=== PATIENT | female | born 1955 | race Caucasian/White ===

== ENCOUNTER 2017-09-04 21:18 | Inpatient (IN) | payer OTHER, SELFPAY ==
[2017-09-04 21:20] VITALS: BP 197/90; PULSE 128; RESP 26; TEMP 36.4; O2SAT 97; BMI 33.3
--- NOTE | 2017-09-04 21:22 | CT_ITS ---
STUDY: CT BRAIN WITHOUT CONTRAST REASON FOR EXAM: Female, 62 years old. Fall. RADIATION DOSAGE (If Supplied By Facility): CTDIvol = ( 44.99 ) mGy, DLP = ( 779.24 ) mGycm TECHNIQUE: Transaxial CT imaging of the brain was performed without administration of intravenous contrast material. Individualized dose optimization techniques were used for this CT. COMPARISON: None. FINDINGS: Normal soft tissue structures. Normal calvarium. Normal size ventricles and extra-axial spaces for the patient's age. Normal white matter tracts of the cerebral hemispheres. Normal basal ganglia and thalami. Normal brainstem. Normal cerebellum. There is no intracranial hemorrhage. There are no findings of an acute ischemic infarction. Fluid in the left maxillary sinus.. CT/Brain/Head without Contrast IMPRESSION: Normal unenhanced CT scan of the brain. Electronically Signed: Grzegorz Blanchard MD at 21:44 EST , Service support ,
--- NOTE | 2017-09-04 21:22 | EKG12_ITS ---
Test Reason : Blood Pressure : / mmHG Vent. Rate : 117 BPM Atrial Rate : 117 BPM P-R Int : 138 ms QRS Dur : 074 ms QT Int : 312 ms P-R-T Axes : 062 055 045 degrees QTc Int : 435 ms Sinus tachycardia Biatrial enlargement Nonspecific ST and T wave abnormality Abnormal ECG Confirmed by LYNN CASEY ([id number]), online content editor RYAN SCHMID ([id number]) on 09/09/2017 10:04:39 AM Referred By: Leeanna Johnson Confirmed By:LYNN CASEY
[2017-09-04 21:31] LABS: Bedside Glucose 124 mg/dL (70-110)
--- NOTE | 2017-09-04 21:39 | ED.RN ---
NO OLD EKG
[2017-09-04 21:47] VITALS: BP 182/93; PULSE 115; RESP 17; O2SAT 92
[2017-09-04 21:48] LABS: Absolute Lymphocyte Count 1.46 X10^3/ul (0.83-4.51); Absolute Neutrophil Count 4.8 X10^3/uL (2.0-7.7); Basophil# 0.01 X10^3/uL; Basophil% 0.1 % (0-1); Eosinophil# 0.04 X10^3/uL; Eosinophils% 0.6 % (0-5); Hematocrit 40.3 % (37-47); Lymphocyte # 1.46 X10^3/ul (4.0); Mean Corp Hgb Conc 32.3 g/gl (32-36); Mean Corpuscular Hgb 28.9 pg (27.0-32.0); Mean Corpuscular Volume 89.6 fL (81-99); Mean Platelet Vol. 10.7 fl (6.2-12.0); Monocyte# 0.58 X10^3/uL; Monocyte% 8.3 % (0-10); Neutrophil # 4.83 X10^3/uL (2.7-7.7); Neutrophil % 69.6 % (47-70); Platelet Count 343 K/mm3 (150-450); RBC Distribution Width CV 14.4 % (11.6-14.6); RBC Distribution Width SD 46.6 fl (35.1-43.9)
[2017-09-04 21:50] LABS: POSITIVE COUNT NO; POSITIVE DIFFERENTIAL NO; POSITIVE MORPHOLOGY NO
[2017-09-04 21:52] LABS: International Normalized Ratio 1.1; Prothrombin Time (Protime)PT. 14.2 SECONDS (11.7-14.9)
[2017-09-04 21:53] LABS: Partial Thromboplast Time 31.4 Seconds (24.1-36.2)
[2017-09-04 22:01] LABS: Anion Gap 9 (5-15); BUN 24 mg/dL (7-18); BUN/Creat Ratio 30.2 RATIO (10-20); Calcium,Total 9.1 mg/dL (8.5-10.1); Chloride 103 mmol/L (98-107); Creatinine, Serum 0.79 mg/dL (0.55-1.02); EST Glomerular Filtration Rate 78 mL/min (>60); Est Glom Filt Rate - Afr Amer 95 mL/min (>60); Estimated Creatinine Clearance 57.14 ml/min; Glucose 154 mg/dL (70-110); Potassium 3.3 mmol/L (3.5-5.1); Sodium Level 137 mmol/L (136-145)
[2017-09-04 22:33] LABS: Lactic Acid 2.8 mmol/L (0.4-2.0)
--- NOTE | 2017-09-04 22:35 | ED.RN ---
lab called with critical lab results. lactic acid result 2.8. dr. tristan made aware. no new orders at this time
[2017-09-04 23:00] VITALS: BP 187/110; PULSE 115; RESP 16; O2SAT 92
--- NOTE | 2017-09-04 23:10 | ED.VISSUMM ---
- ER Visit Summary Date of Service: 09/04/17 Chief Complaint: Collapsed History of Present Illness: The patient is a 62 F who said um per then collapsed. Arrived by ambulance. William stated when they arrived at the residence she had agonal respirations and dilated pupils. She did not respond to noxious stimuli. Patient has no recall of what occurred. Past history of psoriatic arthritis on immunosuppressive meds. She denies headache, double vision, loss of vision or light sensitivity. She denies nausea, vomiting or any GI symptoms. She denies any trouble with speech or swallowing. She denies chest pain or shortness of breath. She denies any myalgias arthralgias. She has absolutely no complaints Physical Examination: Patient is alert oriented ?3. Blood pressure is elevated and initial pressure is 197/90. Heart rate was 128 with rest rate of 26. Pupils equal round reactive. Extraocular muscles are intact. No papilledema is noted. TMs are normal. Nares patent without discharge. Posterior pharynx without erythema or exudate. Uvula is midline. Trachea is midline. There is no carotid bruit. Heart is rapid and regular without murmur, gallop or rub. Lungs are clear to auscultation. Abdomen is soft and nontender. Neuro exam is remarkable for a Babinski sign on the right. Test Results: CT of the head reveals a left maxillary sinusitis with no acute pathology. White count is normal. Electrolyte panel is remarkable glucose of 154. Coags normal. Troponin less than 0.02. Lactate elevated 2.8. EKG sinus tachycardia rate of 117 with artifact and not ossific ST-T wave changes. Emergency Department Course and Treatment: Since patient collapsed unresponsive will obtain CT of the head, EKG and blood work to evaluate this event. Treatment Plan: Hospitalist has been paged for admission for further testing Disposition: Admit to a monitored bed Impression: 1. Syncope of unknown etiology 2. Left maxillary sinusitis 3. Lactic acidosis uncertain etiology 4. Sinus tachycardia on monitor and EKG This note was generated with [employer] things you [employer] dictation software. It may contain incorrect words, spelling, and punctuation that were not noted in review of the chart prior to signing ED Disposition - Plan for ED Patient: Chief Complaint: Neuro S/Sx Referrals: Génesis Faust MD [Primary Care Provider] -
--- NOTE | 2017-09-04 23:13 | PCM.HP.STD ---
Problem List (1) Hypertension Status: Chronic Qualifiers: Hypertension type: essential hypertension Qualified Code(s): I10 - Essential (primary) hypertension (2) Obesity (BMI 30.0-34.9) Status: Chronic (3) Psoriatic arthritis Status: Chronic (4) Rheumatoid arthritis Status: Chronic History of Present Illness Date of Admission: 09/04/17 Chief Complaint: Unresponsive, agonal breathing event The patient is a 62 y/o F w/ PMHx: Hypertension currently untreated, Obesity, Psoriatic and Rheumatoid arthritis following w/ Dr. Johnson who presents to the [facility] ED on 09/04/17 with history of being in the kitchen where she was noted per family to make a sudden moaning sound and collapse to the floor where she was unresponsive with agonal breathing. EMS evaluation confirmation of agonal breathing with pulses intact with EMS oxygen supplementation administration, noted combative en route to hospital with dilated pupils. Upon ED presentation she was improved, noted to be appropriate, answering all questions appropriately. ED physician noted unremarkable evaluation aside ? R upgoing toe. In the ED work-up included T 97.6, HR 128-->115, BP 197/90-->187/110, RR 26-->16, 97% on RA-->92% on RA, unremarkable CBC, normal coags, BMP w/ K 3.3, BUN/Cr 24/0.79, glucose 154, LA 2.8, trop < 0.02, CT head unremarkable, EKG w/ ST. In the ED patient administered labetolol 20 mg IV x 1. Past Medical History Past Medical History (Chronic Problems): Chronic Problems Hypertension (Chronic) Obesity (BMI 30.0-34.9) (Chronic) Psoriatic arthritis (Chronic) Rheumatoid arthritis (Chronic) Allergies leflunomide [From Arava] Adverse Reaction (Verified 09/04/17 21:19) Other LIVER ENZYMES ELEVATED methotrexate [Methotrexate] Adverse Reaction (Verified 09/04/17 21:19) Other INCREASED LIVER ENZYMES sulfasalazine [Sulfasalazine] Adverse Reaction (Verified 09/04/17 21:19) Other ELEVATED LIVER ENZYMES Home Medications: Ambulatory Orders Medication Instructions Recorded TraMADol [Ultram (G)] 50 mg PO TID 06/17/13 PredniSONE 10 mg PO DAILY 11/23/14 Infliximab-DYYB [Inflectra] 100 mg IV QMONTH 09/04/17 Surgical History: no surgical history Psychiatric History: No pertinent psych hx [employer] History: No pertinent [employer] history Lives: Spouse/ Significant Other Smoking Status: Never smoker Tobacco Use: Non-smoker Alcohol: None Drugs: None - *Family History Maternal History Items: - - Thyroid disease, Alzheimer disease Paternal History Items: Cancer, Heart Disease, Hypertension Review of Systems Constitutional: Reports: Malaise, Weakness, Fatigue. Denies: Chills, Fever, Weight Change HEENT: Denies: Head Aches, Sinus Congestion, Sinus Drainage Cardiovascular: Reports: Syncope. Denies: Chest Pain, Palpitations Respiratory: Reports: Cough. Denies: Shortness of breath at rest, Sputum production Gastrointestinal: Denies: Abdominal Pain, Nausea, Vomiting Genitourinary: Denies: Dysuria Musculoskeletal: Reports: Joint stiffness, Joint swelling, Joint Tenderness. Denies: Joint Pain Skin: Denies: Rash, Wounds Neurological: Denies: Numbness, Tingling, Focal weakness Psychiatric: Denies: Anxiety, Depression, Homicidal Ideations, Suicidal Ideations Hematologic/ Lymphatic: Reports: Anemia. Denies: Easy Bruising, Easy Bleeding VTE Information - Inpt Only VTE Present on Admission: No VTE Mechan Device Prophylaxis: SCD's VTE Pharm Prophylaxis ordered?: Yes Subjective: Seated upright in the ED bed, NAD, slow to respond, fatigued appearance, oriented without complaint aside recent mild cough and congestion. Objective: Physical Examination: General: awake, alert, oriented x 3 and cooperative, seated upright in the ED bed in no apparent distress. Skin: normal color, turgor, no icterus, cyanosis. HEENT: AT/NC, EOMI, PERRLA, dry MM, no carotid bruits or JVD noted. Lungs: CTA bilaterally, moderate effort, mild decrease BL bases, no rales, ronchi or wheezing. Heart: Regular rate and rhythm; no gallop, rub audible. Abdomen: soft, NTTP, ND, normal BS, no HSM. Extremities: no cyanosis, clubbing, or edema. Neurological: patient awake, alert, oriented x 3; cognitive function intact; pupils equally reactive to light and accomodation; cranial nerves II-XII grossly normal, moving all 4 extremities but limited secondary to severity of RA, no focal deficits, babinski negative BL (was upgoing R for ED physician initially), unable to perform HTN secondary to RA, FTN BL normal, sensation intact, strength severely globally decreased. Psychiatric: affect appears flat, no acute evidence of depressive or anxiety feelings. - Physical Exam Vital Signs Temp Pulse Resp BP Pulse Ox 97.6 F L 115 H 16 187/110 H 92 09/04/17 21:20 09/04/17 23:00 09/04/17 23:00 09/04/17 23:00 09/04/17 23:00 Oxygen Delivery Method Room Air Weight: 176 lb 5.917 oz Body Mass Index (BMI) 33.3 Finger Stick Blood Glucose 124 Laboratory Tests Past 24 Hrs 09/04/17 09/04/17 09/04/17 21:25 21:25 21:25 WBC 7.0 RBC 4.50 Hgb 13.0 Hct 40.3 MCV 89.6 MCH 28.9 MCHC 32.3 RDW 14.4 RDW Differential 46.6 H Plt Count 343 MPV 10.7 Immature Gran % (Auto) 0.400 Neut % (Auto) 69.6 Lymph % (Auto) 21.0 [place] % (Auto) 8.3 Eos % (Auto) 0.6 Baso % (Auto) 0.1 Absolute Neuts (auto) 4.8 Absolute Lymphs (auto) 1.46 Total Counted Not Reportable PT 14.2 INR 1.1 APTT 31.4 Sodium 137 Potassium 3.3 L Chloride 103 Carbon Dioxide 25.0 Anion Gap 9 BUN 24 H Creatinine 0.79 Estim Creat Clear Calc 57.14 Est GFR (MDRD) Af Amer 95 Est GFR (MDRD) Non-Af 78 BUN/Creatinine Ratio 30.2 H Glucose 154 H Lactic Acid Calcium 9.1 Troponin I < 0.02 09/04/17 21:55 WBC RBC Hgb Hct MCV MCH MCHC RDW RDW Differential Plt Count MPV Immature Gran % (Auto) Neut % (Auto) Lymph % (Auto) [place] % (Auto) Eos % (Auto) Baso % (Auto) Absolute Neuts (auto) Absolute Lymphs (auto) Total Counted PT INR APTT Sodium Potassium Chloride Carbon Dioxide Anion Gap BUN Creatinine Estim Creat Clear Calc Est GFR (MDRD) Af Amer Est GFR (MDRD) Non-Af BUN/Creatinine Ratio Glucose Lactic Acid 2.8 H Calcium Troponin I POC Glucose 09/04/17 21:23 POC Glucose 124 H Assessment/Plan The patient is a 62 y/o F w/ PMHx: Hypertension currently untreated, Obesity, Psoriatic and Rheumatoid arthritis following w/ Dr. Johnson who presents to the [facility] ED on 09/04/17 with history of being in the kitchen where she was noted per family to make a sudden moaning sound and collapse to the floor where she was unresponsive with agonal breathing. (1) Collapse, Agonal breathing, ? Hypoxia with Unclear Etiology w/ Dilated Pupils, ? R + Babinski: Unclear etiology, possible arrhythmia versus alternate event including seizure versus acute CVA: Will admit to PCU, maintain on telemetry, cycle cardiac enzymes, maintain on IVFs, obtain mag level, obtain repeat AM EKG, obtain ECHO, consult PT/OT evaluation, given unclear etiology maintain on NIH assessments, consult Neurology, consider Brain MRI, MRA Head and Neck, obtain EEG, closely monitor BP w/ initiation regimen given severity of elevation noted in the ED as unclear etiology will defer concept of permissive, maintain on asa, obtain AM FLP w/ statin addition, fall precautions. Will obtain CXR in case of aspiration also. Will obtain D-dimer. (2) Elevated Lactic Acid: Unclear etiology, possible dehydration, possible hypoxia, will continue hydration, trend LA. (3) Hyperglycemia: Admission glucose 154, HgbA1c pending. (4) Hypokalemia: Admission K+ 3.3, supplementation given, repeat level in AM. (5) Hypertension, Uncontrolled: Labetolol 20 mg IV x 1 given in the ED, will initiate lisinopril/HCTZ regimen, PRN hydralazine. (6) Obesity: Weight loss and lifestyle changes encouraged, nutrition consulted. (7) Psoriatic and Rheumatoid arthritis: Following w/ Dr. Johnson, previously on remicade now transitioned to inflectra which she was supposed to have today but missed her infusion, continue prednisone therapy. (8) DVT Prophylaxis: SCDs, lovenox. Code Visit Inpatient E&M: 58426 Init Hosp L3
--- NOTE | 2017-09-04 23:28 | HP.PCM_ITS ---
Problem List (1) Hypertension Status: Chronic Qualifiers: Hypertension type: essential hypertension Qualified Code(s): I10 - Essential (primary) hypertension (2) Obesity (BMI 30.0-34.9) Status: Chronic (3) Psoriatic arthritis Status: Chronic (4) Rheumatoid arthritis Status: Chronic History of Present Illness Date of Admission: 09/04/17 Chief Complaint: Unresponsive, agonal breathing event The patient is a 62 y/o F w/ PMHx: Hypertension currently untreated, Obesity, Psoriatic and Rheumatoid arthritis following w/ Dr. Johnson who presents to the [facility] ED on 09/04/17 with history of being in the kitchen where she was noted per family to make a sudden moaning sound and collapse to the floor where she was unresponsive with agonal breathing. EMS evaluation confirmation of agonal breathing with pulses intact with EMS oxygen supplementation administration, noted combative en route to hospital with dilated pupils. Upon ED presentation she was improved, noted to be appropriate, answering all questions appropriately. ED physician noted unremarkable evaluation aside ? R upgoing toe. In the ED work -up included T 97.6, HR 128-->115, BP 197/90-->187/110, RR 26-->16, 97% on RA--> 92% on RA, unremarkable CBC, normal coags, BMP w/ K 3.3, BUN/Cr 24/0.79, glucose 154, LA 2.8, trop < 0.02, CT head unremarkable, EKG w/ ST. In the ED patient administered labetolol 20 mg IV x 1. Past Medical History Past Medical History (Chronic Problems): Chronic Problems Hypertension (Chronic) Obesity (BMI 30.0-34.9) (Chronic) Psoriatic arthritis (Chronic) Rheumatoid arthritis (Chronic) Allergies leflunomide [From Arava] Adverse Reaction (Verified 09/04/17 21:19) Other LIVER ENZYMES ELEVATED methotrexate [Methotrexate] Adverse Reaction (Verified 09/04/17 21:19) Other INCREASED LIVER ENZYMES sulfasalazine [Sulfasalazine] Adverse Reaction (Verified 09/04/17 21:19) Other ELEVATED LIVER ENZYMES Home Medications: Ambulatory Orders Medication Instructions Recorded TraMADol [Ultram (G)] 50 mg PO TID 06/17/13 PredniSONE 10 mg PO DAILY 11/23/14 Infliximab-DYYB [Inflectra] 100 mg IV QMONTH 09/04/17 Surgical History: no surgical history Psychiatric History: No pertinent psych hx [employer] History: No pertinent [employer] history Lives: Spouse/ Significant Other Smoking Status: Never smoker Tobacco Use: Non-smoker Alcohol: None Drugs: None - *Family History Maternal History Items: - - Thyroid disease, Alzheimer disease Paternal History Items: Cancer, Heart Disease, Hypertension Review of Systems Constitutional: Reports: Malaise, Weakness, Fatigue. Denies: Chills, Fever, Weight Change HEENT: Denies: Head Aches, Sinus Congestion, Sinus Drainage Cardiovascular: Reports: Syncope. Denies: Chest Pain, Palpitations Respiratory: Reports: Cough. Denies: Shortness of breath at rest, Sputum production Gastrointestinal: Denies: Abdominal Pain, Nausea, Vomiting Genitourinary: Denies: Dysuria Musculoskeletal: Reports: Joint stiffness, Joint swelling, Joint Tenderness. Denies: Joint Pain Skin: Denies: Rash, Wounds Neurological: Denies: Numbness, Tingling, Focal weakness Psychiatric: Denies: Anxiety, Depression, Homicidal Ideations, Suicidal Ideations Hematologic/ Lymphatic: Reports: Anemia. Denies: Easy Bruising, Easy Bleeding VTE Information - Inpt Only VTE Present on Admission: No VTE Mechan Device Prophylaxis: SCD's VTE Pharm Prophylaxis ordered?: Yes Subjective: Seated upright in the ED bed, NAD, slow to respond, fatigued appearance, oriented without complaint aside recent mild cough and congestion. Objective: Physical Examination: General: awake, alert, oriented x 3 and cooperative, seated upright in the ED bed in no apparent distress. Skin: normal color, turgor, no icterus, cyanosis. HEENT: AT/NC, EOMI, PERRLA, dry MM, no carotid bruits or JVD noted. Lungs: CTA bilaterally, moderate effort, mild decrease BL bases, no rales, ronchi or wheezing. Heart: Regular rate and rhythm; no gallop, rub audible. Abdomen: soft, NTTP, ND, normal BS, no HSM. Extremities: no cyanosis, clubbing, or edema. Neurological: patient awake, alert, oriented x 3; cognitive function intact; pupils equally reactive to light and accomodation; cranial nerves II-XII grossly normal, moving all 4 extremities but limited secondary to severity of RA , no focal deficits, babinski negative BL (was upgoing R for ED physician initially), unable to perform HTN secondary to RA, FTN BL normal, sensation intact, strength severely globally decreased. Psychiatric: affect appears flat, no acute evidence of depressive or anxiety feelings. - Physical Exam Vital Signs Temp Pulse Resp BP Pulse Ox 97.6 F L 115 H 16 187/110 H 92 09/04/17 21:20 09/04/17 23:00 09/04/17 23:00 09/04/17 23:00 09/04/17 23:00 Oxygen Delivery Method Room Air Weight: 176 lb 5.917 oz Body Mass Index (BMI) 33.3 Finger Stick Blood Glucose 124 Laboratory Tests Past 24 Hrs 09/04/17 09/04/17 09/04/17 21:25 21:25 21:25 WBC 7.0 RBC 4.50 Hgb 13.0 Hct 40.3 MCV 89.6 MCH 28.9 MCHC 32.3 RDW 14.4 RDW Differential 46.6 H Plt Count 343 MPV 10.7 Immature Gran % (Auto) 0.400 Neut % (Auto) 69.6 Lymph % (Auto) 21.0 [place] % (Auto) 8.3 Eos % (Auto) 0.6 Baso % (Auto) 0.1 Absolute Neuts (auto) 4.8 Absolute Lymphs (auto) 1.46 Total Counted Not Reportable PT 14.2 INR 1.1 APTT 31.4 Sodium 137 Potassium 3.3 L Chloride 103 Carbon Dioxide 25.0 Anion Gap 9 BUN 24 H Creatinine 0.79 Estim Creat Clear Calc 57.14 Est GFR (MDRD) Af Amer 95 Est GFR (MDRD) Non-Af 78 BUN/Creatinine Ratio 30.2 H Glucose 154 H Lactic Acid Calcium 9.1 Troponin I < 0.02 09/04/17 21:55 WBC RBC Hgb Hct MCV MCH MCHC RDW RDW Differential Plt Count MPV Immature Gran % (Auto) Neut % (Auto) Lymph % (Auto) [place] % (Auto) Eos % (Auto) Baso % (Auto) Absolute Neuts (auto) Absolute Lymphs (auto) Total Counted PT INR APTT Sodium Potassium Chloride Carbon Dioxide Anion Gap BUN Creatinine Estim Creat Clear Calc Est GFR (MDRD) Af Amer Est GFR (MDRD) Non-Af BUN/Creatinine Ratio Glucose Lactic Acid 2.8 H Calcium Troponin I POC Glucose 09/04/17 21:23 POC Glucose 124 H Assessment/Plan The patient is a 62 y/o F w/ PMHx: Hypertension currently untreated, Obesity, Psoriatic and Rheumatoid arthritis following w/ Dr. Johnson who presents to the [facility] ED on 09/04/17 with history of being in the kitchen where she was noted per family to make a sudden moaning sound and collapse to the floor where she was unresponsive with agonal breathing. (1) Collapse, Agonal breathing, ? Hypoxia with Unclear Etiology w/ Dilated Pupils, ? R + Babinski: Unclear etiology, possible arrhythmia versus alternate event including seizure versus acute CVA: Will admit to PCU, maintain on telemetry, cycle cardiac enzymes, maintain on IVFs, obtain mag level, obtain repeat AM EKG, obtain ECHO, consult PT/OT evaluation, given unclear etiology maintain on NIH assessments, consult Neurology, consider Brain MRI, MRA Head and Neck, obtain EEG, closely monitor BP w/ initiation regimen given severity of elevation noted in the ED as unclear etiology will defer concept of permissive, maintain on asa, obtain AM FLP w/ statin addition, fall precautions. Will obtain CXR in case of aspiration also. Will obtain D-dimer. (2) Elevated Lactic Acid: Unclear etiology, possible dehydration, possible hypoxia, will continue hydration, trend LA. (3) Hyperglycemia: Admission glucose 154, HgbA1c pending. (4) Hypokalemia: Admission K+ 3.3, supplementation given, repeat level in AM. (5) Hypertension, Uncontrolled: Labetolol 20 mg IV x 1 given in the ED, will initiate lisinopril/HCTZ regimen, PRN hydralazine. (6) Obesity: Weight loss and lifestyle changes encouraged, nutrition consulted. (7) Psoriatic and Rheumatoid arthritis: Following w/ Dr. Johnson, previously on remicade now transitioned to inflectra which she was supposed to have today but missed her infusion, continue prednisone therapy. (8) DVT Prophylaxis: SCDs, lovenox. Code Visit Inpatient E&M: 41161 Init Hosp L3
[2017-09-04 23:42] VITALS: BP 109/95; PULSE 97; RESP 28; O2SAT 90
[2017-09-04] MEDS: Labetalol 20 MG/4 ML Vial IV (23:42)
[2017-09-04 23:46] VITALS: BP 166/98; PULSE 95; RESP 19; O2SAT 93
[2017-09-05] VITALS (15 sets, daily range): BP systolic 146–172; BP diastolic 77–83; PULSE 71–99; RESP 16–18; TEMP 36.4–37; O2SAT 95–98; BMI 31.1; BMI 33.3
--- NOTE | 2017-09-05 00:30 | ECHOD_ITS ---
Reason For Study: TIA/CVA Procedure This was a 2D Doppler, Color Flow transthoracic echocardiogram. Exam performed portable in patient room. Left Ventricle Normal size and thickness. The estimated ejection fraction is 65 %. Normal diastology for age. No regional wall motion abnormalities noted. Right Ventricle Normal size and thickness. Normal systolic function. Atria Normal left atrium. Normal right atrium. Normal atrial septum. Bubble contrast study negative for right to left interatrial shunt. Mitral Valve The mitral valve is structurally normal. No prolapse or stenosis seen. Trivial mitral valve insufficiency. Tricuspid Valve Normal tricuspid valve. Unable to estimate RV systolic pressure/pulmonary artery pressure due to technically difficult study. Aortic Valve Normal aortic valve. Trisinus/trileaflet aortic valve. Pulmonic Valve Normal pulmonic valve. Great Vessels Normal aortic root. Normal arch. Normal inferior vena cava. Inferior vena cava collapse with sniff. Pericardium/Pleural No pericardial effusion. Medication Performed a rapid injection of agitated mix of 9 cc saline and 1cc air to assess for atrial septal defect. MMode/2D Measurements & Calculations LVIDd: 3.8 cm IVSd: 0.97 cm Ao root diam: 2.9 cm LVIDs: 2.1 cm LVPWd: 1.1 cm LA dimension: 3.3 cm RVDd: 3.0 cm FS: 45.0 % LAV(MOD-bp): 34.9 ml LA A4 area: 12.0 cm2 RA A4 area: 12.7 cm2 LAV(MOD-bp) Indexed: 19.5 ml/m2 LAV(MOD-sp2): 49.3 ml LAV(MOD-sp4): 24.4 ml Doppler Measurements & Calculations MV E max junior: 84.6 cm/sec Lat Peak E' Junior: 9.2 cm/sec Med Peak E' Junior: 7.4 cm/sec MV A max junior: 74.0 cm/sec E/E' lat: 9.2 E/E' med: 11.4 MV E/A: 1.1 Ao V2 max: 139.1 cm/sec LV V1 max: 104.8 cm/sec PA V2 max: 100.1 cm/sec Ao max P.7 mmHg LV V1 max P.4 mmHg Interpretation Summary The estimated ejection fraction is 65 %. Normal diastology for age. Bubble contrast study negative for right to left interatrial shunt. Trivial mitral valve insufficiency. Unable to estimate RV systolic pressure/pulmonary artery pressure due to technically difficult study. There is no comparison study available. Ordering Physician: Lakesha Preciado Referring Physician: Génesis Faust M.D. Performed By: Noemi Loyola RDCS
--- NOTE | 2017-09-05 00:30 | MRI_ITS ---
STUDY: MRI BRAIN WITHOUT CONTRAST REASON FOR EXAM: Female, 62 years old. Syncope,leg weakness Episode of unresponsiveness and agonal breathing. TECHNIQUE: Standardized multiplanar fat and water weighted pulse sequences were obtained. COMPARISON: None. FINDINGS: Normal size of the ventricles and extra-axial spaces for the patient's age. There are a limited number of small white matter hyperintensities, distributed throughout the deep white matter tracts of the cerebral hemispheres, consistent with mild chronic white matter ischemic changes. Normal bilateral basal ganglia. Normal thalami. There is no extra-axial fluid accumulation. Normal flow voids within the major intracranial circulation suggesting patency by spin echo criteria. Normal sella turcica, pituitary gland, infundibular stalk, optic chiasm and hypothalamus. Normal tectal plate and pineal gland. Normal midbrain, maximilian and medulla. Normal cerebellum. Normal basal cisterns. Normal bilateral temporal bones. Normal bilateral internal auditory canals. There is moderate left maxillary sinus disease. MRI/Brain without Contrast IMPRESSION: No acute intracranial abnormality. Acute left maxillary sinus disease. Electronically Signed: Omega Christian MD at 11:04 EST Tel , Service support ,
--- NOTE | 2017-09-05 00:30 | RAD_ITS ---
STUDY: X-RAY CHEST REASON FOR EXAM: Female, 62 years old. Shortness of breath. TECHNIQUE: PA and lateral views of the chest. COMPARISON: Prior comparison studies are not available for review at this time. FINDINGS: There is a skinfold creating artifacts in the lower chest. No focal infiltrate is seen. There is no demonstrated pleural abnormality. Normal size heart. Normal mediastinum and ml. Normal visualized pulmonary arteries. Normal visualized aortic arch and descending thoracic aorta. There is mild levoscoliosis which could be positional. Normal visualized ribs, clavicles, and shoulders. There is no demonstrated abnormality of the visualized soft tissue structures of the upper abdomen. RAD/Chest PA and Lateral IMPRESSION: No active pulmonary disease. Electronically Signed: Sma Campos MD at 0:59 EST Tel , Service support ,
--- NOTE | 2017-09-05 00:30 | MRI_ITS ---
STUDY: MRA OF THE HEAD WITHOUT CONTRAST REASON FOR EXAM: Female, 62 years old. Episode of unresponsiveness and agonal breathing. TECHNIQUE: 3-D [id number] (TOF) imaging was performed with MIPs. The study was performed unenhanced. COMPARISON: None. FINDINGS: Normal bilateral petrous carotid arteries. Normal right cavernous carotid artery with a normal supraclinoid bifurcation. Normal left cavernous carotid artery with a normal supraclinoid bifurcation. Normal right A1 segments of the anterior cerebral artery. Normal left A1 segments of the anterior cerebral artery. Normal intact anterior communicating artery (ACOM). Normal bilateral A2 segments of the anterior cerebral arteries. Normal right M1 and M2 segments of the middle cerebral arteries, with a normal M1 bifurcation. Normal left M1 and M2 segments of the middle cerebral arteries, with a normal M1 bifurcation. There is non-visualization of the right posterior communicating artery (PCOM). Normal left posterior communicating artery (PCOM). Normal bilateral vertebral arteries. Normal basilar artery with a normal basilar bifurcation. The visualized bilateral superior cerebellar (SCA) arteries are normal. Normal bilateral P1, P2 and visualized P3 segments of the posterior cerebral arteries. There is no demonstrated aneurysm of the elim ira of Nicolas. There is no major vessel occlusion or hemodynamically significant stenosis. There is no demonstrated abnormality of the visualized brain. MRI/MRA Head ONLY without Contrast IMPRESSION: Normal MRA of the head Electronically Signed: Omega Christian MD at 10:37 EST Tel , Service support ,
--- NOTE | 2017-09-05 00:30 | MRI_ITS ---
STUDY: MRA NECK WITHOUT CONTRAST REASON FOR EXAM: Female, 62 years old. Syncope,leg weakness Episode of unresponsiveness and agonal breathing. TECHNIQUE: Source images were obtained, MIPs were performed. The study was performed unenhanced. COMPARISON: None. FINDINGS: RIGHT CAROTID ARTERIES: Normal right common carotid artery (CCA). There is moderate atherosclerotic plaque formation of the origin of the left internal carotid artery with an estimated stenosis of 50-69% stenosis. Normal visualized cervical portion of the right internal carotid artery. LEFT CAROTID ARTERIES: Normal left common carotid artery (CCA). There is mild atherosclerotic plaque formation with minimal narrowing of the left carotid bulb. Normal origin of the left internal carotid (ICA) artery without a hemodynamically significant stenosis. Normal visualized cervical portion of the left internal carotid artery. VERTEBRAL ARTERIES: Normal antegrade flow within the bilateral vertebral artery without a hemodynamically significant stenosis. MRI/MRA Neck without Contrast IMPRESSION: 50-69% stenosis on the right. Correlation with ultrasonography can be obtained. Electronically Signed: Omega Christian MD at 10:43 EST Tel , Service support ,
[2017-09-05 01:10] LABS: D-Dimer Quantitative (DVT/PE) 3.23 FEU/ug/m (0.27-0.49)
[2017-09-05] MEDS: 0.9% Normal Saline 1,000 ML 125 ML IV ×2 (01:24→18:09)
[2017-09-05] MEDS: Acetaminophen 325 MG Tablet 650 MG PO ×2 (01:24→14:36)
[2017-09-05 01:54] LABS: AST(SGOT) 19 U/L (15-37); Alanine Aminotransfer ALT/SGPT 22 U/L (12-78); Albumin, Serum 3.5 g/dL (3.4-5.0); Alkaline Phosphatase 100 U/L (45-117); Globulin 4.9 g/dL (2.2-4.2); Protein, Total 8.4 g/dL (6.4-8.2); Thyroid Stim Hormone (TSH) 0.86 uIU/mL (0.358-3.74)
[2017-09-05 02:00] LABS: Reflex Lactate? Y
--- NOTE | 2017-09-05 02:04 | CT_ITS ---
STUDY: CTA CHEST REASON FOR EXAM: Female, 62 years old. Elevated d-dimer. Syncope. RADIATION DOSAGE (If Supplied By Facility): CTDIvol = ( 9.89 ) mGy, DLP = ( 481.86 ) mGycm TECHNIQUE: The examination was performed with the intravenous administration of 75ML ml of Isovue 370 contrast material. Post-processing of the angiographic images was performed, with multiplanar reformation. Individualized dose optimization techniques were used for this CT. COMPARISON: None. FINDINGS: Normal enhancement of the main pulmonary artery and right and left pulmonary arteries. Normal enhancement of the bilateral peripheral pulmonary arteries. There is no demonstrated pulmonary embolism. Normal thoracic aorta and visualized great vessels. There is no demonstrated aortic dissection. Normal heart and pericardium. Normal mediastinum. Normal hilar regions. Normal visualized trachea and bronchi. The lungs are well expanded. There are hazy patchy infiltrates in the left upper lobe and superior segment of the left lower lobe. There are atelectatic changes in the left lower lobe. There are mild bronchiectatic changes mostly central. There are no pleural effusions. Normal chest wall structures. The breasts are better evaluated by mammography. The left breast is partially visualized. There are mild degenerative changes in the spine. Normal visualized upper abdomen. CT/CTA Chest W/WO Contrast IMPRESSION: No evidence of pulmonary embolism. /Patchy infiltrates in the left upper and lower lobes likely due to pneumonia. Atypical pulmonary edema is unlikely. Atelectatic changes in the left lower lobe. Electronically Signed: Sam Campos MD at 3:13 EST Tel , Service support ,
[2017-09-05 02:08] LABS: Phosphorus 2.9 mg/dL (2.5-4.9)
[2017-09-05 02:32] LABS: Lactic Acid 0.9 mmol/L (0.4-2.0)
[2017-09-05 05:46] LABS: Hematocrit 35.6 % (37-47); Hemoglobin 11.2 g/dl (12.0-15.0); Mean Corp Hgb Conc 31.5 g/gl (32-36); Mean Corpuscular Hgb 28.1 pg (27.0-32.0); Mean Corpuscular Volume 89.2 fL (81-99); Mean Platelet Vol. 10.2 fl (6.2-12.0); Platelet Count 286 K/mm3 (150-450); RBC Distribution Width CV 14.3 % (11.6-14.6); Red Blood Count 3.99 M/mm3 (4.2-5.4); White Blood Count 10.6 K/mm3 (4.4-11.0)
--- NOTE | 2017-09-05 05:55 | EKG12_ITS ---
Test Reason : MORNING EKG Blood Pressure : / mmHG Vent. Rate : 100 BPM Atrial Rate : 100 BPM P-R Int : 134 ms QRS Dur : 076 ms QT Int : 350 ms P-R-T Axes : 068 050 048 degrees QTc Int : 451 ms Normal sinus rhythm Biatrial enlargement Abnormal ECG No previous ECGs available Confirmed by ADITHYA HEREDIA, JUAN ([id number]), newspaper photo editor RYAN SCHMID ([id number]) on 09/16/2017 8:55:07 AM Referred By: Leeanna Johnson Confirmed By:JUAN HAJI MD
[2017-09-05 06:04] LABS: Anion Gap 9 (5-15); BUN 16 mg/dL (7-18); BUN/Creat Ratio 24.8 RATIO (10-20); Calcium,Total 8.7 mg/dL (8.5-10.1); Chloride 105 mmol/L (98-107); Cholesterol 174 mg/dL (200); Creatinine, Serum 0.64 mg/dL (0.55-1.02); EST Glomerular Filtration Rate 100 mL/min (>60); Est Glom Filt Rate - Afr Amer 121 mL/min (>60); Estimated Creatinine Clearance 70.54 ml/min; Glucose 155 mg/dL (70-110); High Density Lipoprotein 50 mg/dL; Potassium 3.9 mmol/L (3.5-5.1); Scan Indicated on CBC? Y/N NO; Sodium Level 138 mmol/L (136-145); Triglycerides 70 mg/dL; Very Low Density Lipoprotein 14 mg/dL (5-40)
--- NOTE | 2017-09-05 11:27 | CASEMGMT ---
This RN CM to bedside to complete CM assessment at this time and pt is currently getting at EEG. Will attempt again later. SStaten RN CM
--- NOTE | 2017-09-05 12:00 | PCM.CONS.GEN ---
Reason for Consult Date of Consultation: 09/05/17 Reason for Consultation: Seizure History of Present Illness: The patient is a 62 year old right-handed white female with a history of psoriatic arthritis for which she takes tramadol. She has been feeling well recently, yesterday, she apparently lost conscious in her kitchen. Her son was in the next room, heard her moaning, he came into the room to see her slumped down to the floor. She was unconscious for less than 5 minutes, began to arouse and was normal within 15 minutes. There was no shaking, tongue biting, or loss of continence. She feels improved now. She says she takes tramadol 3 times per day, does not remember the dose, stop taking it and restarted recently for her joint pain. No history of head injury or brain infection. MRI was performed which I reviewed and is normal. per admission H&P:The patient is a 62 y/o F w/ PMHx: Hypertension currently untreated, Obesity, Psoriatic and Rheumatoid arthritis following w/ Dr. Johnson who presents to the [facility] ED on 09/04/17 with history of being in the kitchen where she was noted per family to make a sudden moaning sound and collapse to the floor where she was unresponsive with agonal breathing. EMS evaluation confirmation of agonal breathing with pulses intact with EMS oxygen supplementation administration, noted combative en route to hospital with dilated pupils. Upon ED presentation she was improved, noted to be appropriate, answering all questions appropriately. ED physician noted unremarkable evaluation aside ? R upgoing toe. In the ED work-up included T 97.6, HR 128-->115, BP 197/90-->187/110, RR 26-->16, 97% on RA-->92% on RA, unremarkable CBC, normal coags, BMP w/ K 3.3, BUN/Cr 24/0.79, glucose 154, LA 2.8, trop < 0.02, CT head unremarkable, EKG w/ ST. In the ED patient administered labetolol 20 mg IV x 1. Past Medical History Past Medical History (Chronic Problems): Chronic Problems Hypertension (Chronic) Obesity (BMI 30.0-34.9) (Chronic) Psoriatic arthritis (Chronic) Rheumatoid arthritis (Chronic) Allergies leflunomide [From Arava] Adverse Reaction (Verified 09/05/17 00:58) Other LIVER ENZYMES ELEVATED methotrexate [Methotrexate] Adverse Reaction (Verified 09/05/17 00:58) Other INCREASED LIVER ENZYMES sulfasalazine [Sulfasalazine] Adverse Reaction (Verified 09/05/17 00:58) Other ELEVATED LIVER ENZYMES Home Medications: Ambulatory Orders Medication Instructions Recorded TraMADol [Ultram (G)] 50 mg PO TID 06/17/13 PredniSONE 10 mg PO TID PRN PRN 11/23/14 Infliximab-DYYB [Inflectra] 100 mg IV QMONTH 09/04/17 Surgical History: no surgical history Psychiatric History: No pertinent psych hx 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 Lives: Spouse/ Significant Other Smoking Status: Never smoker Tobacco Use: Non-smoker Alcohol: None Drugs: None - *Family History Maternal History Items: - - Thyroid disease, Alzheimer disease Paternal History Items: Cancer, Heart Disease, Hypertension Review of Systems Constitutional: Denies: Chills, Fever, Weight Change HEENT: Denies: Head Aches, Sinus Congestion, Sinus Drainage Cardiovascular: Denies: Chest Pain, Palpitations Respiratory: Denies: Cough, Shortness of breath at rest, Sputum production Gastrointestinal: Denies: Abdominal Pain, Nausea, Vomiting Genitourinary: Denies: Dysuria Musculoskeletal: Denies: Joint Pain, Joint Tenderness Skin: Denies: Rash, Wounds Neurological: Denies: Numbness, Tingling, Focal weakness Psychiatric: Denies: Anxiety, Depression, Homicidal Ideations, Suicidal Ideations Hematologic/ Lymphatic: Denies: Easy Bruising, Easy Bleeding - Physical Exam General: Alert, Oriented x3, Cooperative HEENT: Atraumatic, PERRLA, EOMI, Normocephalic Neck: Supple, No JVD, Negative Carotid Bruits Lungs: Clear to auscultation, Normal air movement Cardiovascular: Regular rate, No murmurs Abdomen: Bowel Sounds Present, Soft, Non Tender Extremities: No edema, Capillary Refill Less than 3 Seconds Skin: No rashes, No breakdown Musculoskeletal: No Tenderness to Palpation of Joints or Extremities Neurological: Cranial nerves II-XII grossly intact Psych/Mental Status: Normal Affect, Appropriate Vital Signs Temp Pulse Resp BP Pulse Ox 37.0 C 98 18 157/82 H 96 09/05/17 08:49 09/05/17 08:49 09/05/17 08:49 09/05/17 08:49 09/05/17 08:49 Oxygen Flow Rate 2 Oxygen Delivery Method Room Air Weight: 74.9 kg Body Mass Index (BMI) 31.1 Intake and Output for Last 24 Hours 09/03/17 09/04/17 09/05/17 23:59 23:59 23:59 Intake Total 594 / 594 Balance 594 / 594 Laboratory Tests Past 24 Hrs 09/05/17 09/05/17 09/05/17 01:49 01:49 05:20 WBC 10.6 RBC 3.99 L Hgb 11.2 L Hct 35.6 L MCV 89.2 MCH 28.1 MCHC 31.5 L RDW 14.3 RDW Differential 47.0 H Plt Count 286 MPV 10.2 Sodium Potassium Chloride Carbon Dioxide Anion Gap BUN Creatinine Estim Creat Clear Calc Est GFR (MDRD) Af Amer Est GFR (MDRD) Non-Af BUN/Creatinine Ratio Glucose Lactic Acid 0.9 Calcium Troponin I 0.22 H Triglycerides Cholesterol LDL Cholesterol VLDL Cholesterol HDL Cholesterol 09/05/17 05:20 WBC RBC Hgb Hct MCV MCH MCHC RDW RDW Differential Plt Count MPV Sodium 138 Potassium 3.9 Chloride 105 Carbon Dioxide 24.0 Anion Gap 9 BUN 16 Creatinine 0.64 Estim Creat Clear Calc 70.54 Est GFR (MDRD) Af Amer 121 Est GFR (MDRD) Non-Af 100 BUN/Creatinine Ratio 24.8 H Glucose 155 H Lactic Acid Calcium 8.7 Troponin I 0.21 H Triglycerides 70 Cholesterol 174 LDL Cholesterol 110 VLDL Cholesterol 14 HDL Cholesterol 50 MRI reviewed, normal Assessment/Plan Seizure versus syncope: Seizure versus syncope: The event sounds more syncopal however given her tramadol usage this may have been a one-time seizure event. I would recommend that she discontinue tramadol. Her MRI is normal. She can be discharged to home with outpatient follow-up. Her and her family understand that she should no longer use tramadol. An anticonvulsant is not necessary otherwise.
[2017-09-05] MEDS: Famotidine 20 MG Tablet PO ×2 (12:04→21:31)
[2017-09-05] MEDS: Aspirin 81 MG TAB.CHEW PO (12:04)
[2017-09-05] MEDS: Enoxaparin 40 MG/0.4 ML Syringe SC (12:04)
[2017-09-05] MEDS: HYDROCHLOROTHIAZIDE 12.5 MG CAPSULE PO (12:04)
[2017-09-05] MEDS: Lisinopril 10 MG Tablet PO (12:04)
--- NOTE | 2017-09-05 12:04 | CON.PCM_ITS ---
Reason for Consult Date of Consultation: 09/05/17 Reason for Consultation: Seizure History of Present Illness: The patient is a 62 year old right-handed white female with a history of psoriatic arthritis for which she takes tramadol. She has been feeling well recently, yesterday, she apparently lost conscious in her kitchen. Her son was in the next room, heard her moaning, he came into the room to see her slumped down to the floor. She was unconscious for less than 5 minutes, began to arouse and was normal within 15 minutes. There was no shaking, tongue biting, or loss of continence. She feels improved now. She says she takes tramadol 3 times per day, does not remember the dose, stop taking it and restarted recently for her joint pain. No history of head injury or brain infection. MRI was performed which I reviewed and is normal. per admission H&P:The patient is a 62 y/o F w/ PMHx: Hypertension currently untreated, Obesity, Psoriatic and Rheumatoid arthritis following w/ Dr. Johnson who presents to the [facility] ED on 09/04/17 with history of being in the kitchen where she was noted per family to make a sudden moaning sound and collapse to the floor where she was unresponsive with agonal breathing. EMS evaluation confirmation of agonal breathing with pulses intact with EMS oxygen supplementation administration, noted combative en route to hospital with dilated pupils. Upon ED presentation she was improved, noted to be appropriate, answering all questions appropriately. ED physician noted unremarkable evaluation aside ? R upgoing toe. In the ED work -up included T 97.6, HR 128-->115, BP 197/90-->187/110, RR 26-->16, 97% on RA--> 92% on RA, unremarkable CBC, normal coags, BMP w/ K 3.3, BUN/Cr 24/0.79, glucose 154, LA 2.8, trop < 0.02, CT head unremarkable, EKG w/ ST. In the ED patient administered labetolol 20 mg IV x 1. Past Medical History Past Medical History (Chronic Problems): Chronic Problems Hypertension (Chronic) Obesity (BMI 30.0-34.9) (Chronic) Psoriatic arthritis (Chronic) Rheumatoid arthritis (Chronic) Allergies leflunomide [From Arava] Adverse Reaction (Verified 09/05/17 00:58) Other LIVER ENZYMES ELEVATED methotrexate [Methotrexate] Adverse Reaction (Verified 09/05/17 00:58) Other INCREASED LIVER ENZYMES sulfasalazine [Sulfasalazine] Adverse Reaction (Verified 09/05/17 00:58) Other ELEVATED LIVER ENZYMES Home Medications: Ambulatory Orders Medication Instructions Recorded TraMADol [Ultram (G)] 50 mg PO TID 06/17/13 PredniSONE 10 mg PO TID PRN PRN 11/23/14 Infliximab-DYYB [Inflectra] 100 mg IV QMONTH 09/04/17 Surgical History: no surgical history Psychiatric History: No pertinent psych hx 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 Lives: Spouse/ Significant Other Smoking Status: Never smoker Tobacco Use: Non-smoker Alcohol: None Drugs: None - *Family History Maternal History Items: - - Thyroid disease, Alzheimer disease Paternal History Items: Cancer, Heart Disease, Hypertension Review of Systems Constitutional: Denies: Chills, Fever, Weight Change HEENT: Denies: Head Aches, Sinus Congestion, Sinus Drainage Cardiovascular: Denies: Chest Pain, Palpitations Respiratory: Denies: Cough, Shortness of breath at rest, Sputum production Gastrointestinal: Denies: Abdominal Pain, Nausea, Vomiting Genitourinary: Denies: Dysuria Musculoskeletal: Denies: Joint Pain, Joint Tenderness Skin: Denies: Rash, Wounds Neurological: Denies: Numbness, Tingling, Focal weakness Psychiatric: Denies: Anxiety, Depression, Homicidal Ideations, Suicidal Ideations Hematologic/ Lymphatic: Denies: Easy Bruising, Easy Bleeding - Physical Exam General: Alert, Oriented x3, Cooperative HEENT: Atraumatic, PERRLA, EOMI, Normocephalic Neck: Supple, No JVD, Negative Carotid Bruits Lungs: Clear to auscultation, Normal air movement Cardiovascular: Regular rate, No murmurs Abdomen: Bowel Sounds Present, Soft, Non Tender Extremities: No edema, Capillary Refill Less than 3 Seconds Skin: No rashes, No breakdown Musculoskeletal: No Tenderness to Palpation of Joints or Extremities Neurological: Cranial nerves II-XII grossly intact Psych/Mental Status: Normal Affect, Appropriate Vital Signs Temp Pulse Resp BP Pulse Ox 37.0 C 98 18 157/82 H 96 09/05/17 08:49 09/05/17 08:49 09/05/17 08:49 09/05/17 08:49 09/05/17 08:49 Oxygen Flow Rate 2 Oxygen Delivery Method Room Air Weight: 74.9 kg Body Mass Index (BMI) 31.1 Intake and Output for Last 24 Hours 09/03/17 09/04/17 09/05/17 23:59 23:59 23:59 Intake Total 594 / 594 Balance 594 / 594 Laboratory Tests Past 24 Hrs 09/05/17 09/05/17 09/05/17 01:49 01:49 05:20 WBC 10.6 RBC 3.99 L Hgb 11.2 L Hct 35.6 L MCV 89.2 MCH 28.1 MCHC 31.5 L RDW 14.3 RDW Differential 47.0 H Plt Count 286 MPV 10.2 Sodium Potassium Chloride Carbon Dioxide Anion Gap BUN Creatinine Estim Creat Clear Calc Est GFR (MDRD) Af Amer Est GFR (MDRD) Non-Af BUN/Creatinine Ratio Glucose Lactic Acid 0.9 Calcium Troponin I 0.22 H Triglycerides Cholesterol LDL Cholesterol VLDL Cholesterol HDL Cholesterol 09/05/17 05:20 WBC RBC Hgb Hct MCV MCH MCHC RDW RDW Differential Plt Count MPV Sodium 138 Potassium 3.9 Chloride 105 Carbon Dioxide 24.0 Anion Gap 9 BUN 16 Creatinine 0.64 Estim Creat Clear Calc 70.54 Est GFR (MDRD) Af Amer 121 Est GFR (MDRD) Non-Af 100 BUN/Creatinine Ratio 24.8 H Glucose 155 H Lactic Acid Calcium 8.7 Troponin I 0.21 H Triglycerides 70 Cholesterol 174 LDL Cholesterol 110 VLDL Cholesterol 14 HDL Cholesterol 50 MRI reviewed, normal Assessment/Plan Seizure versus syncope: Seizure versus syncope: The event sounds more syncopal however given her tramadol usage this may have been a one-time seizure event. I would recommend that she discontinue tramadol. Her MRI is normal. She can be discharged to home with outpatient follow-up. Her and her family understand that she should no longer use tramadol. An anticonvulsant is not necessary otherwise.
--- NOTE | 2017-09-05 14:29 | CASEMGMT ---
RN CM met with patient, spouse, and patient's son. See attached link for full assessment. Dispo: Home Transition Planning/Care Coordination: Patient follows with Dr. Wolfe for arthritis. Patient reports she is independent at home, but therapy is recommending patient continue with further skilled therapy. RN CM may need to arrange FWW and HHC vs Outpt PT/OT at discharge. RN ROZ will continue to follow.
--- NOTE | 2017-09-05 15:08 | PCM.PN.HOSP ---
Patient Problems: Active and Suspected Problems Syncope (Acute) Elevated troponin (Acute) Subjective: Feels fine but is complaining of pain around her left pinky toe. Patient stated that recently had just started resuming tramadol after period of hiatus. Vitals/I&O's: Vital Signs Temp Pulse Resp BP Pulse Ox 37.0 C 91 16 146/80 H 95 09/05/17 14:32 09/05/17 14:32 09/05/17 14:32 09/05/17 14:32 09/05/17 14:32 Oxygen Flow Rate 2 Oxygen Delivery Method Room Air Weight: 74.9 kg Body Mass Index (BMI) 31.1 Intake and Output for Last 24 Hours 09/03/17 09/04/17 09/05/17 23:59 23:59 23:59 Intake Total 774 / 774 Output Total 200 / 200 Balance 574 / 574 General: Alert, Cooperative, No apparent distress HEENT: Atraumatic, PERRLA, EOMI, Normocephalic Oral: Moist Mucosa, No Gingival or Mucosal Lesions/ Ulcerations Neck: No Nodes, Thyroid Normal Size and Texture Lungs: Clear to auscultation, Normal air movement, No rhonchi, No wheeze Cardiovascular: Regular rate, Regular Rhythm, Normal S1, Normal S2, No murmurs Abdomen: Bowel Sounds Present, Soft, Non Tender, Non-Distended Extremities: No edema, No Calf Tenderness Skin: No rashes, No breakdown Musculoskeletal: - - No reproducible tenderness over the left lateral foot where the pinky toe itself. Neurological: Cranial nerves II-XII grossly intact, Neuro grossly intact, Motor Exam 5/5 strength throughout Psych/Mental Status: Normal Affect, Appropriate Laboratory Results 09/05/17 01:49: Troponin I 0.22 H 09/05/17 01:49: Lactic Acid 0.9 09/05/17 05:20: WBC 10.6, RBC 3.99 L, Hgb 11.2 L, Hct 35.6 L, MCV 89.2, MCH 28.1, MCHC 31.5 L, RDW 14.3, RDW Differential 47.0 H, Plt Count 286, MPV 10.2 09/05/17 05:20: Sodium 138, Potassium 3.9, Chloride 105, Carbon Dioxide 24.0, Anion Gap 9, BUN 16, Creatinine 0.64, Estim Creat Clear Calc 70.54, Est GFR (MDRD) Af Amer 121, Est GFR (MDRD) Non-Af 100, BUN/Creatinine Ratio 24.8 H, Glucose 155 H, Calcium 8.7, Troponin I 0.21 H, Triglycerides 70, Cholesterol 174, LDL Cholesterol 110, VLDL Cholesterol 14, HDL Cholesterol 50 09/05/17 12:05: Troponin I 0.10 H Clinical Impression(s) from Imaging Studies Brain CT 09/04/17 21:22 IMPRESSION: Normal unenhanced CT scan of the brain. Electronically Signed: Grzegorz Blanchard MD at 21:44 EST , Service support , Brain MRI 09/05/17 00:30 IMPRESSION: No acute intracranial abnormality. Acute left maxillary sinus disease. Electronically Signed: Omega Christian MD at 11:04 EST Tel , Service support , Chest X-Ray 09/05/17 00:30 IMPRESSION: No active pulmonary disease. Electronically Signed: Sam Campos MD at 0:59 EST Tel , Service support , Head MRA 09/05/17 00:30 IMPRESSION: Normal MRA of the head Electronically Signed: Omega Christian MD at 10:37 EST Tel , Service support , Neck MRA 09/05/17 00:30 IMPRESSION: 50-69% stenosis on the right. Correlation with ultrasonography can be obtained. Electronically Signed: Omega Christian MD at 10:43 EST Tel , Service support , Chest CTA 09/05/17 02:04 IMPRESSION: No evidence of pulmonary embolism. /Patchy infiltrates in the left upper and lower lobes likely due to pneumonia. Atypical pulmonary edema is unlikely. Atelectatic changes in the left lower lobe. Electronically Signed: Sam Campos MD at 3:13 EST Tel , Service support , Current Medications Acetaminophen (Tylenol) 650 mg PO Q4H PRN PRN PRN Reason: Headache/Temp>99F Last Admin: 09/05/17 14:36 Dose: 650 mg Acetaminophen (Tylenol) 650 mg RECTAL Q4H PRN PRN PRN Reason: Headache/Temp>99F Acetaminophen (Tylenol Liquid) 650 mg NG Q4H PRN PRN PRN Reason: Headache/Temp>99F Hydrocodone Bitart/Acetaminophen ([place] 5mg-325mg) 1 - 2 tablet PO Q6H PRN PRN PRN Reason: Moderate-severe pain Al Hydroxide/Mg Hydroxide (Mylanta Ii) 30 ml PO Q6H PRN PRN PRN Reason: Gastric burning Aspirin (Aspirin, Baby) 81 mg PO DAILY@0800 [facility] Last Admin: 09/05/17 12:04 Dose: 81 mg Atorvastatin Calcium (Lipitor) 80 mg PO QHS [facility] Enoxaparin Sodium (Lovenox) 40 mg SC DAILY@1000 [facility] Last Admin: 09/05/17 12:04 Dose: 40 mg Famotidine (Pepcid) 20 mg PO BID [facility] Last Admin: 09/05/17 12:04 Dose: 20 mg Hydralazine HCl (Apresoline) 10 mg IV Q4H PRN PRN PRN Reason: SBP > 160 Last Admin: 09/05/17 05:08 Dose: 10 mg Hydrochlorothiazide (Hydrochlorothiazide) 12.5 mg PO DAILY [facility] Last Admin: 09/05/17 12:04 Dose: 12.5 mg Sodium Chloride () 1,000 mls @ 125 mls/hr IV .Q8H [facility] Last Admin: 09/05/17 12:10 Dose: Not Given Lisinopril (Zestril) 10 mg PO DAILY [facility] Last Admin: 09/05/17 12:04 Dose: 10 mg Magnesium Hydroxide (Milk Of Magnesia) 30 ml PO DAILY PRN PRN Reason: Constipation Morphine Sulfate (Morphine) 1 - 2 mg IV Q4H PRN PRN PRN Reason: PAIN Nitroglycerin (Nitrostat) 0.4 mg SUBLINGUAL Q5M PRN PRN Reason: CHEST PAIN Ondansetron HCl (Zofran) 4 mg IV Q8H PRN PRN PRN Reason: NAUSEA Prednisone (Prednisone) 10 mg PO DAILY@0800 [facility] Last Admin: 09/05/17 12:04 Dose: 10 mg Promethazine HCl (Phenergan (Ll)) 12.5 mg IV Q6H PRN PRN PRN Reason: NAUSEA/VOMITING Sodium Chloride () 5 - 30 ml IV UD PRN PRN Reason: SALINE FLUSH Assessment/Plan Active and Suspected Problems Syncope (Acute) Elevated troponin (Acute) 1. Syncope Discussed with the patient's son who is at bedside, said the patient just kind of slumped over. No history of anything like this before. Seen by neurology and for the may been correlated with the tramadol and as recommend that be discontinued. No stroke. Could have possibly been a seizure but no antiepileptics necessary. 2. Elevated troponins Unclear etiology. Patient is not having nor was having any chest pain. Patient was having agonal respirations as was documented, if the patient may have been demand ischemia. We will start patient on aspirin and order a nuclear stress test for the morning. 3. Left foot pain patient describes it over her pinky toe. I am not able to reproduce it. We will check an x-ray to see if there is any fracture. If there is some injury, may been related with the patient's syncopal episode or when his gotten up from her syncopal episode. 4. DVT prophylaxis with Lovenox. Code Visit Inpatient E&M: 94175 Subs Hosp L3
--- NOTE | 2017-09-05 15:14 | PN_ITS ---
Patient Problems: Active and Suspected Problems Syncope (Acute) Elevated troponin (Acute) Subjective: Feels fine but is complaining of pain around her left pinky toe. Patient stated that recently had just started resuming tramadol after period of hiatus. Vitals/I&O's: Vital Signs Temp Pulse Resp BP Pulse Ox 37.0 C 91 16 146/80 H 95 09/05/17 14:32 09/05/17 14:32 09/05/17 14:32 09/05/17 14:32 09/05/17 14:32 Oxygen Flow Rate 2 Oxygen Delivery Method Room Air Weight: 74.9 kg Body Mass Index (BMI) 31.1 Intake and Output for Last 24 Hours 09/03/17 09/04/17 09/05/17 23:59 23:59 23:59 Intake Total 774 / 774 Output Total 200 / 200 Balance 574 / 574 General: Alert, Cooperative, No apparent distress HEENT: Atraumatic, PERRLA, EOMI, Normocephalic Oral: Moist Mucosa, No Gingival or Mucosal Lesions/ Ulcerations Neck: No Nodes, Thyroid Normal Size and Texture Lungs: Clear to auscultation, Normal air movement, No rhonchi, No wheeze Cardiovascular: Regular rate, Regular Rhythm, Normal S1, Normal S2, No murmurs Abdomen: Bowel Sounds Present, Soft, Non Tender, Non-Distended Extremities: No edema, No Calf Tenderness Skin: No rashes, No breakdown Musculoskeletal: - - No reproducible tenderness over the left lateral foot where the pinky toe itself. Neurological: Cranial nerves II-XII grossly intact, Neuro grossly intact, Motor Exam 5/5 strength throughout Psych/Mental Status: Normal Affect, Appropriate Laboratory Results 09/05/17 01:49: Troponin I 0.22 H 09/05/17 01:49: Lactic Acid 0.9 09/05/17 05:20: WBC 10.6, RBC 3.99 L, Hgb 11.2 L, Hct 35.6 L, MCV 89.2, MCH 28.1 , MCHC 31.5 L, RDW 14.3, RDW Differential 47.0 H, Plt Count 286, MPV 10.2 09/05/17 05:20: Sodium 138, Potassium 3.9, Chloride 105, Carbon Dioxide 24.0, Anion Gap 9, BUN 16, Creatinine 0.64, Estim Creat Clear Calc 70.54, Est GFR ( MDRD) Af Amer 121, Est GFR (MDRD) Non-Af 100, BUN/Creatinine Ratio 24.8 H, Glucose 155 H, Calcium 8.7, Troponin I 0.21 H, Triglycerides 70, Cholesterol 174 , LDL Cholesterol 110, VLDL Cholesterol 14, HDL Cholesterol 50 09/05/17 12:05: Troponin I 0.10 H Clinical Impression(s) from Imaging Studies Brain CT 09/04/17 21:22 IMPRESSION: Normal unenhanced CT scan of the brain. Electronically Signed: Grzegorz Blanchard MD at 21:44 EST , Service support , Brain MRI 09/05/17 00:30 IMPRESSION: No acute intracranial abnormality. Acute left maxillary sinus disease. Electronically Signed: Omega Christian MD at 11:04 EST Tel , Service support , Chest X-Ray 09/05/17 00:30 IMPRESSION: No active pulmonary disease. Electronically Signed: Sam Campos MD at 0:59 EST Tel , Service support , Head MRA 09/05/17 00:30 IMPRESSION: Normal MRA of the head Electronically Signed: Omega Christian MD at 10:37 EST Tel , Service support , Neck MRA 09/05/17 00:30 IMPRESSION: 50-69% stenosis on the right. Correlation with ultrasonography can be obtained. Electronically Signed: Omega Christian MD at 10:43 EST Tel , Service support , Chest CTA 09/05/17 02:04 IMPRESSION: No evidence of pulmonary embolism. /Patchy infiltrates in the left upper and lower lobes likely due to pneumonia. Atypical pulmonary edema is unlikely. Atelectatic changes in the left lower lobe. Electronically Signed: Sam Campos MD at 3:13 EST Tel , Service support , Current Medications Acetaminophen (Tylenol) 650 mg PO Q4H PRN PRN PRN Reason: Headache/Temp>99F Last Admin: 09/05/17 14:36 Dose: 650 mg Acetaminophen (Tylenol) 650 mg RECTAL Q4H PRN PRN PRN Reason: Headache/Temp>99F Acetaminophen (Tylenol Liquid) 650 mg NG Q4H PRN PRN PRN Reason: Headache/Temp>99F Hydrocodone Bitart/Acetaminophen ([place] 5mg-325mg) 1 - 2 tablet PO Q6H PRN PRN PRN Reason: Moderate-severe pain Al Hydroxide/Mg Hydroxide (Mylanta Ii) 30 ml PO Q6H PRN PRN PRN Reason: Gastric burning Aspirin (Aspirin, Baby) 81 mg PO DAILY@0800 [facility] Last Admin: 09/05/17 12:04 Dose: 81 mg Atorvastatin Calcium (Lipitor) 80 mg PO QHS [facility] Enoxaparin Sodium (Lovenox) 40 mg SC DAILY@1000 [facility] Last Admin: 09/05/17 12:04 Dose: 40 mg Famotidine (Pepcid) 20 mg PO BID [facility] Last Admin: 09/05/17 12:04 Dose: 20 mg Hydralazine HCl (Apresoline) 10 mg IV Q4H PRN PRN PRN Reason: SBP > 160 Last Admin: 09/05/17 05:08 Dose: 10 mg Hydrochlorothiazide (Hydrochlorothiazide) 12.5 mg PO DAILY [facility] Last Admin: 09/05/17 12:04 Dose: 12.5 mg Sodium Chloride () 1,000 mls @ 125 mls/hr IV .Q8H [facility] Last Admin: 09/05/17 12:10 Dose: Not Given Lisinopril (Zestril) 10 mg PO DAILY [facility] Last Admin: 09/05/17 12:04 Dose: 10 mg Magnesium Hydroxide (Milk Of Magnesia) 30 ml PO DAILY PRN PRN Reason: Constipation Morphine Sulfate (Morphine) 1 - 2 mg IV Q4H PRN PRN PRN Reason: PAIN Nitroglycerin (Nitrostat) 0.4 mg SUBLINGUAL Q5M PRN PRN Reason: CHEST PAIN Ondansetron HCl (Zofran) 4 mg IV Q8H PRN PRN PRN Reason: NAUSEA Prednisone (Prednisone) 10 mg PO DAILY@0800 [facility] Last Admin: 09/05/17 12:04 Dose: 10 mg Promethazine HCl (Phenergan (Ll)) 12.5 mg IV Q6H PRN PRN PRN Reason: NAUSEA/VOMITING Sodium Chloride () 5 - 30 ml IV UD PRN PRN Reason: SALINE FLUSH Assessment/Plan Active and Suspected Problems Syncope (Acute) Elevated troponin (Acute) 1. Syncope Discussed with the patient's son who is at bedside, said the patient just kind of slumped over. No history of anything like this before. Seen by neurology and for the may been correlated with the tramadol and as recommend that be discontinued. No stroke. Could have possibly been a seizure but no antiepileptics necessary. 2. Elevated troponins Unclear etiology. Patient is not having nor was having any chest pain. Patient was having agonal respirations as was documented, if the patient may have been demand ischemia. We will start patient on aspirin and order a nuclear stress test for the morning. 3. Left foot pain patient describes it over her pinky toe. I am not able to reproduce it. We will check an x-ray to see if there is any fracture. If there is some injury, may been related with the patient's syncopal episode or when his gotten up from her syncopal episode. 4. DVT prophylaxis with Lovenox. Code Visit Inpatient E&M: 69880 Subs Hosp L3
--- NOTE | 2017-09-05 16:45 | RAD_ITS ---
XR Foot 2 Views INDICATION: LEFT 5TH TOE PAIN COMPARISON: None TECHNIQUE: 2 views of the left foot FINDINGS: The osseous structures are osteopenic. There is no convincing evidence of fracture or dislocation. The toes appear intact. RAD/Foot 2 Views IMPRESSION: No evidence of fracture or dislocation. Osteopenia. at 1817 Reported and signed by: Katharine Rivera MD Electronically Signed: Katharine Rivera MD at 17:15 EST Tel , Service support ,
[2017-09-05] MEDS: Atorvastatin Calcium 80 MG Tablet PO (21:31)
[2017-09-06] VITALS (24 sets, daily range): BP systolic 97–178; BP diastolic 44–106; PULSE 67–128; RESP 13–19; TEMP 36.1–36.9; O2SAT 94–100
[2017-09-06] MEDS: 0.9% Normal Saline 1,000 ML 125 ML IV ×3 (02:10→20:53)
[2017-09-06] MEDS: 0.9% NaCl Peripheral Flush Adult/Peds IV ×3 (03:10→20:51)
--- NOTE | 2017-09-06 05:55 | EKG12_ITS ---
Test Reason : AM EKG Blood Pressure : / mmHG Vent. Rate : 086 BPM Atrial Rate : 086 BPM P-R Int : 124 ms QRS Dur : 080 ms QT Int : 374 ms P-R-T Axes : 055 056 064 degrees QTc Int : 447 ms Normal sinus rhythm with sinus arrhythmia Normal ECG When compared with ECG of 05-SEP-2017 05:22, MANUAL COMPARISON REQUIRED, DATA IS UNCONFIRMED Confirmed by ADITHYA HEREDIA, JUAN ([id number]), editorial manager RYAN SCHMID ([id number]) on 09/16/2017 8:55:13 AM Referred By: Leeanna Johnson Confirmed By:JUAN HAJI MD
[2017-09-06 06:24] LABS: Absolute Neutrophil Count 3.7 X10^3/uL (2.0-7.7); Basophil# 0.01 X10^3/uL; Basophil% 0.2 % (0-1); Eosinophil# 0.08 X10^3/uL; Eosinophils% 1.2 % (0-5); Hematocrit 39.2 % (37-47); Hemoglobin 12.5 g/dl (12.0-15.0); Lymphocyte % 33.5 % (19-41); Mean Corp Hgb Conc 31.9 g/gl (32-36); Mean Corpuscular Hgb 28.4 pg (27.0-32.0); Mean Corpuscular Volume 89.1 fL (81-99); Mean Platelet Vol. 10.3 fl (6.2-12.0); Monocyte# 0.62 X10^3/uL; Monocyte% 9.5 % (0-10); Neutrophil # 3.65 X10^3/uL (2.7-7.7); Neutrophil % 55.6 % (47-70); Platelet Count 301 K/mm3 (150-450); RBC Distribution Width CV 14.5 % (11.6-14.6); RBC Distribution Width SD 47.2 fl (35.1-43.9); White Blood Count 6.6 K/mm3 (4.4-11.0)
[2017-09-06 06:33] LABS: International Normalized Ratio 1.1; Prothrombin Time (Protime)PT. 13.4 SECONDS (11.7-14.9)
[2017-09-06 06:44] LABS: POSITIVE COUNT NO; POSITIVE DIFFERENTIAL NO; POSITIVE MORPHOLOGY NO
[2017-09-06 06:47] LABS: Anion Gap 9 (5-15); BUN 13 mg/dL (7-18); BUN/Creat Ratio 20.8 RATIO (10-20); Calcium,Total 9.1 mg/dL (8.5-10.1); Chloride 104 mmol/L (98-107); Creatinine, Serum 0.62 mg/dL (0.55-1.02); EST Glomerular Filtration Rate 103 mL/min (>60); Est Glom Filt Rate - Afr Amer 125 mL/min (>60); Estimated Creatinine Clearance 72.81 ml/min; Glucose 93 mg/dL (70-110); Potassium 3.6 mmol/L (3.5-5.1); Sodium Level 139 mmol/L (136-145)
[2017-09-06] MEDS: Lisinopril 10 MG Tablet PO (07:05)
--- NOTE | 2017-09-06 09:24 | PCM.PN.HOSP ---
Patient Problems: Active and Suspected Problems Seizure (Acute) Elevated troponin (Acute) Syncope (Acute) Subjective: Is undergoing stress test today and underwent a witnessed tonic-clonic seizure. Afterwards patient did become blue. Patient was put on oxygen. Rapid response team was called and patient was groggy afterwards but was eventually becoming more alert. Vitals/I&O's: Vital Signs Temp Pulse Resp BP Pulse Ox 36.7 C 109 H 16 151/89 H 98 09/06/17 04:20 09/06/17 04:20 09/06/17 04:20 09/06/17 04:20 09/06/17 04:20 Oxygen Flow Rate 2 Oxygen Delivery Method Room Air Weight: 74.9 kg Body Mass Index (BMI) 31.1 Intake and Output for Last 24 Hours 09/04/17 09/05/17 09/06/17 23:59 23:59 23:59 Intake Total 2054 / 2054 849 / 849 Output Total 200 / 200 Balance 1855 / 1855 849 / 849 General: Confused, - - Afebrile. Postictal. HEENT: Atraumatic, PERRLA, EOMI, Normocephalic Oral: Moist Mucosa, No Gingival or Mucosal Lesions/ Ulcerations Neck: No Nodes, Thyroid Normal Size and Texture Lungs: Clear to auscultation, Normal air movement, No rhonchi Cardiovascular: Regular rate, Regular Rhythm, Normal S1, Normal S2 Abdomen: Non-Distended, Distended Extremities: No edema, No Calf Tenderness Skin: No rashes, No breakdown Musculoskeletal: No Tenderness to Palpation of Joints or Extremities, No Muscle Wasting Lymphatic: No Cervical, Supraclavicular, or Inguinal Adenopathy Neurological: - - Groggy. Moves all extremities spontaneously. No focal deficits appreciated. Laboratory Results 09/05/17 12:05: Troponin I 0.10 H 09/06/17 05:45: WBC 6.6, RBC 4.40, Hgb 12.5, Hct 39.2, MCV 89.1, MCH 28.4, MCHC 31.9 L, RDW 14.5, RDW Differential 47.2 H, Plt Count 301, MPV 10.3, Immature Gran % (Auto) 0.000, Neut % (Auto) 55.6, Lymph % (Auto) 33.5, [place] % (Auto) 9.5, Eos % (Auto) 1.2, Baso % (Auto) 0.2, Absolute Neuts (auto) 3.7, Absolute Lymphs (auto) 2.20, Total Counted Not Reportable 09/06/17 05:45: PT 13.4, INR 1.1 09/06/17 05:45: Sodium 139, Potassium 3.6, Chloride 104, Carbon Dioxide 26.0, Anion Gap 9, BUN 13, Creatinine 0.62, Estim Creat Clear Calc 72.81, Est GFR (MDRD) Af Amer 125, Est GFR (MDRD) Non-Af 103, BUN/Creatinine Ratio 20.8 H, Glucose 93, Calcium 9.1 Current Medications Acetaminophen (Tylenol) 650 mg PO Q4H PRN PRN PRN Reason: Headache/Temp>99F Last Admin: 09/05/17 14:36 Dose: 650 mg Acetaminophen (Tylenol) 650 mg RECTAL Q4H PRN PRN PRN Reason: Headache/Temp>99F Acetaminophen (Tylenol Liquid) 650 mg NG Q4H PRN PRN PRN Reason: Headache/Temp>99F Hydrocodone Bitart/Acetaminophen ([place] 5mg-325mg) 1 - 2 tablet PO Q6H PRN PRN PRN Reason: Moderate-severe pain Al Hydroxide/Mg Hydroxide (Mylanta Ii) 30 ml PO Q6H PRN PRN PRN Reason: Gastric burning Aspirin (Aspirin, Baby) 81 mg PO DAILY@0800 [facility] Last Admin: 09/05/17 12:04 Dose: 81 mg Atorvastatin Calcium (Lipitor) 80 mg PO QHS [facility] Last Admin: 09/05/17 21:31 Dose: 80 mg Enoxaparin Sodium (Lovenox) 40 mg SC DAILY@1000 [facility] Last Admin: 09/05/17 12:04 Dose: 40 mg Famotidine (Pepcid) 20 mg PO BID [facility] Last Admin: 09/05/17 21:31 Dose: 20 mg Hydralazine HCl (Apresoline) 10 mg IV Q4H PRN PRN PRN Reason: SBP > 160 Last Admin: 09/06/17 03:09 Dose: 10 mg Hydrochlorothiazide (Hydrochlorothiazide) 12.5 mg PO DAILY [facility] Last Admin: 09/05/17 12:04 Dose: 12.5 mg Sodium Chloride () 1,000 mls @ 125 mls/hr IV .Q8H [facility] Last Admin: 09/06/17 02:10 Dose: 125 mls/hr Lisinopril (Zestril) 10 mg PO DAILY [facility] Last Admin: 09/06/17 07:05 Dose: 10 mg Magnesium Hydroxide (Milk Of Magnesia) 30 ml PO DAILY PRN PRN Reason: Constipation Morphine Sulfate (Morphine) 1 - 2 mg IV Q4H PRN PRN PRN Reason: PAIN Nitroglycerin (Nitrostat) 0.4 mg SUBLINGUAL Q5M PRN PRN Reason: CHEST PAIN Ondansetron HCl (Zofran) 4 mg IV Q8H PRN PRN PRN Reason: NAUSEA Prednisone (Prednisone) 10 mg PO DAILY@0800 [facility] Last Admin: 09/05/17 12:04 Dose: 10 mg Promethazine HCl (Phenergan (Ll)) 12.5 mg IV Q6H PRN PRN PRN Reason: NAUSEA/VOMITING Sodium Chloride () 5 - 30 ml IV UD PRN PRN Reason: SALINE FLUSH Last Admin: 09/06/17 03:10 Dose: 10 ml Assessment/Plan Active and Suspected Problems Seizure (Acute) Elevated troponin (Acute) Syncope (Acute) 1. Seizure Witnessed by the stress test lab. Currently postictal. Likely the cause of the patient's earlier syncope was a seizure. May be related with tramadol use. Workup for the syncope has been unremarkable, including MRI of the brain and head neck. Patient will have as needed Ativan. Page currently out to Dr. Matamoros about what treatment he would want for the seizures and that this is the second 1. Discussed with the patient's . I informed him. Further discussion will need to take place in regards to restrictions such as driving and other things in regards to activity for the patient moving forward. 2. Elevated troponins Unclear etiology. Patient is not having nor was having any chest pain. Patient was having agonal respirations as was documented, if the patient may have been demand ischemia. We will start patient on aspirin and order a nuclear stress test for the morning. 3. Left foot pain patient describes it over her pinky toe. I am not able to reproduce it. We will check an x-ray to see if there is any fracture. If there is some injury, may been related with the patient's syncopal episode or when his gotten up from her syncopal episode. 4. DVT prophylaxis with Lovenox. Code Visit Inpatient E&M: 65563 Subs Hosp L3
--- NOTE | 2017-09-06 09:28 | PN_ITS ---
Patient Problems: Active and Suspected Problems Seizure (Acute) Elevated troponin (Acute) Syncope (Acute) Subjective: Is undergoing stress test today and underwent a witnessed tonic-clonic seizure. Afterwards patient did become blue. Patient was put on oxygen. Rapid response team was called and patient was groggy afterwards but was eventually becoming more alert. Vitals/I&O's: Vital Signs Temp Pulse Resp BP Pulse Ox 36.7 C 109 H 16 151/89 H 98 09/06/17 04:20 09/06/17 04:20 09/06/17 04:20 09/06/17 04:20 09/06/17 04:20 Oxygen Flow Rate 2 Oxygen Delivery Method Room Air Weight: 74.9 kg Body Mass Index (BMI) 31.1 Intake and Output for Last 24 Hours 09/04/17 09/05/17 09/06/17 23:59 23:59 23:59 Intake Total 2054 / 2054 849 / 849 Output Total 200 / 200 Balance 1855 / 1855 849 / 849 General: Confused, - - Afebrile. Postictal. HEENT: Atraumatic, PERRLA, EOMI, Normocephalic Oral: Moist Mucosa, No Gingival or Mucosal Lesions/ Ulcerations Neck: No Nodes, Thyroid Normal Size and Texture Lungs: Clear to auscultation, Normal air movement, No rhonchi Cardiovascular: Regular rate, Regular Rhythm, Normal S1, Normal S2 Abdomen: Non-Distended, Distended Extremities: No edema, No Calf Tenderness Skin: No rashes, No breakdown Musculoskeletal: No Tenderness to Palpation of Joints or Extremities, No Muscle Wasting Lymphatic: No Cervical, Supraclavicular, or Inguinal Adenopathy Neurological: - - Groggy. Moves all extremities spontaneously. No focal deficits appreciated. Laboratory Results 09/05/17 12:05: Troponin I 0.10 H 09/06/17 05:45: WBC 6.6, RBC 4.40, Hgb 12.5, Hct 39.2, MCV 89.1, MCH 28.4, MCHC 31.9 L, RDW 14.5, RDW Differential 47.2 H, Plt Count 301, MPV 10.3, Immature Gran % (Auto) 0.000, Neut % (Auto) 55.6, Lymph % (Auto) 33.5, [place] % (Auto) 9.5 , Eos % (Auto) 1.2, Baso % (Auto) 0.2, Absolute Neuts (auto) 3.7, Absolute Lymphs (auto) 2.20, Total Counted Not Reportable 09/06/17 05:45: PT 13.4, INR 1.1 09/06/17 05:45: Sodium 139, Potassium 3.6, Chloride 104, Carbon Dioxide 26.0, Anion Gap 9, BUN 13, Creatinine 0.62, Estim Creat Clear Calc 72.81, Est GFR ( MDRD) Af Amer 125, Est GFR (MDRD) Non-Af 103, BUN/Creatinine Ratio 20.8 H, Glucose 93, Calcium 9.1 Current Medications Acetaminophen (Tylenol) 650 mg PO Q4H PRN PRN PRN Reason: Headache/Temp>99F Last Admin: 09/05/17 14:36 Dose: 650 mg Acetaminophen (Tylenol) 650 mg RECTAL Q4H PRN PRN PRN Reason: Headache/Temp>99F Acetaminophen (Tylenol Liquid) 650 mg NG Q4H PRN PRN PRN Reason: Headache/Temp>99F Hydrocodone Bitart/Acetaminophen ([place] 5mg-325mg) 1 - 2 tablet PO Q6H PRN PRN PRN Reason: Moderate-severe pain Al Hydroxide/Mg Hydroxide (Mylanta Ii) 30 ml PO Q6H PRN PRN PRN Reason: Gastric burning Aspirin (Aspirin, Baby) 81 mg PO DAILY@0800 [facility] Last Admin: 09/05/17 12:04 Dose: 81 mg Atorvastatin Calcium (Lipitor) 80 mg PO QHS [facility] Last Admin: 09/05/17 21:31 Dose: 80 mg Enoxaparin Sodium (Lovenox) 40 mg SC DAILY@1000 [facility] Last Admin: 09/05/17 12:04 Dose: 40 mg Famotidine (Pepcid) 20 mg PO BID [facility] Last Admin: 09/05/17 21:31 Dose: 20 mg Hydralazine HCl (Apresoline) 10 mg IV Q4H PRN PRN PRN Reason: SBP > 160 Last Admin: 09/06/17 03:09 Dose: 10 mg Hydrochlorothiazide (Hydrochlorothiazide) 12.5 mg PO DAILY [facility] Last Admin: 09/05/17 12:04 Dose: 12.5 mg Sodium Chloride () 1,000 mls @ 125 mls/hr IV .Q8H [facility] Last Admin: 09/06/17 02:10 Dose: 125 mls/hr Lisinopril (Zestril) 10 mg PO DAILY [facility] Last Admin: 09/06/17 07:05 Dose: 10 mg Magnesium Hydroxide (Milk Of Magnesia) 30 ml PO DAILY PRN PRN Reason: Constipation Morphine Sulfate (Morphine) 1 - 2 mg IV Q4H PRN PRN PRN Reason: PAIN Nitroglycerin (Nitrostat) 0.4 mg SUBLINGUAL Q5M PRN PRN Reason: CHEST PAIN Ondansetron HCl (Zofran) 4 mg IV Q8H PRN PRN PRN Reason: NAUSEA Prednisone (Prednisone) 10 mg PO DAILY@0800 [facility] Last Admin: 09/05/17 12:04 Dose: 10 mg Promethazine HCl (Phenergan (Ll)) 12.5 mg IV Q6H PRN PRN PRN Reason: NAUSEA/VOMITING Sodium Chloride () 5 - 30 ml IV UD PRN PRN Reason: SALINE FLUSH Last Admin: 09/06/17 03:10 Dose: 10 ml Assessment/Plan Active and Suspected Problems Seizure (Acute) Elevated troponin (Acute) Syncope (Acute) 1. Seizure Witnessed by the stress test lab. Currently postictal. Likely the cause of the patient's earlier syncope was a seizure. May be related with tramadol use. Workup for the syncope has been unremarkable, including MRI of the brain and head neck. Patient will have as needed Ativan. Page currently out to Dr. Matamoros about what treatment he would want for the seizures and that this is the second 1. Discussed with the patient's . I informed him. Further discussion will need to take place in regards to restrictions such as driving and other things in regards to activity for the patient moving forward. 2. Elevated troponins Unclear etiology. Patient is not having nor was having any chest pain. Patient was having agonal respirations as was documented, if the patient may have been demand ischemia. We will start patient on aspirin and order a nuclear stress test for the morning. 3. Left foot pain patient describes it over her pinky toe. I am not able to reproduce it. We will check an x-ray to see if there is any fracture. If there is some injury, may been related with the patient's syncopal episode or when his gotten up from her syncopal episode. 4. DVT prophylaxis with Lovenox. Code Visit Inpatient E&M: 29740 Subs Hosp L3
--- NOTE | 2017-09-06 09:55 | NURSING ---
RN CALLED BACK TO ROOM, PATIENT HAVING ANOTHER SEIZURE, PICKER MACHINE OPERATOR CALLED. SEE PICKER MACHINE OPERATOR PAPERWORK, PATIENT BEING TRANSFERRED TO ICU.
--- NOTE | 2017-09-06 10:16 | CT_ITS ---
STUDY: CT BRAIN WITHOUT CONTRAST REASON FOR EXAM: Female, 62 years old. RADIATION DOSAGE (If Supplied By Facility): CTDIvol = ( 44.99 ) mGy, DLP = ( 745.49 ) mGycm TECHNIQUE: Transaxial CT imaging of the brain was performed without administration of intravenous contrast material. Individualized dose optimization techniques were used for this CT. COMPARISON: None. FINDINGS: Normal soft tissue structures. Normal calvarium. Normal size ventricles and extra-axial spaces for the patient's age. Normal white matter tracts of the cerebral hemispheres. Normal basal ganglia and thalami. Normal brainstem. Normal cerebellum. There is no intracranial hemorrhage. There are no findings of an acute ischemic infarction. There again is mucosal thickening of the left maxillary sinus. CT/Brain/Head without Contrast IMPRESSION: No acute intracranial process. No significant change since previous exam. Left maxillary sinus disease. Electronically Signed: Sam Campos MD at 13:52 EST Tel , Service support ,
--- NOTE | 2017-09-06 10:16 | CASEMGMT ---
Social Work Responding to the ASSISTANT CORPORATION COUNSEL. Patient family present, Spouse, Son and two daughters. Patient family visibly anxious, as this is second ASSISTANT CORPORATION COUNSEL for patient on this day. This public health social worker remained with patient family during ASSISTANT [employer]ATION COUNSEL offering supportive counseling and active listening as patient family spoke about patient. Patient is to be moved to the ICU unit. This public health social worker escorted the family up the the ICU waiting room and notified ICU staff that family is in the waiting room and would like to be notified when family is able to be with patient in room. ICU staff to notify family. Patient daughter also asking for contact number to the [facility] as patient daughters spouse is in the reserves. This public health social worker giving patient daughter contact information for [employer] [facility]. Further support was given. Social Work to continue to follow as needed. Dyan STANLEY, SERVICE DELIVERY MANAGER
[2017-09-06] MEDS: Ondansetron 4 MG/2 ML Vial IV (10:43)
--- NOTE | 2017-09-06 10:57 | STRESSREP ---
Stress Test Report Pharmacologic myocardial perfusion stress test. 62 year-old lady with a history of chest pain. Stress protocol: The EKG demonstrates sinus tachycardia with a rate of 107 bpm resting blood pressure is 186/90 mmHg. 0.4 mg of regadenoson was infused per usual protocol followed by rapid intravenous saline flush injection. Continuous EKG monitoring was performed. The maximum heart rate attained was 136 bpm which was 85% of the maximum predicted heart rate. The maximum workload was 1 metabolic equivalent. At rest there were no ST or T-wave changes noted suggest abnormal flow reserve nonspecific ST changes were noted during infusion as well. The resting blood pressure was 186/90 with a final blood pressure 180/84. Post stress test the patient had to use the bathroom and then apparently had a seizure episode. Agonal breathing was noted rapid response team was called patient was assisted with respiration EKG demonstrated sinus tachycardia at the rate of 160 bpm. The blood pressure recorded was 280/82. It was decided not to pursue any post stress images. Patient was noted to be alert and oriented ?3 after this event at 9:20 AM oxygen saturation was 97% on room air. The patient was transferred back to the progressive care unit. Patient was noted to be in stable condition. Resting nuclear images demonstrate normal perfusion in all areas of the myocardium. Conclusion : Incomplete pharmacologic myocardial perfusion stress test with patient demonstrating normal resting images. Witnessed seizure episode. Resting hypertension.
--- NOTE | 2017-09-06 11:40 | NURSING ---
PT ARRIVED IN ICU AT 1015
[2017-09-06] MEDS: Famotidine 20 MG Tablet PO ×2 (11:53→20:50)
[2017-09-06] MEDS: HYDROCHLOROTHIAZIDE 12.5 MG CAPSULE PO (11:53)
[2017-09-06] MEDS: Aspirin 81 MG TAB.CHEW PO (11:54)
[2017-09-06 13:19] LABS: CPK Total, Creatine Kinase 146 U/L (26-192)
--- NOTE | 2017-09-06 13:19 | EEG ---
- Electroencephalogram Date of service 09/05/17 This is an 18 channel echoencephalogram performed on this 62-year-old female utilizing [employer] 10-20 electrode placement system. Hyperventilation, photic stimulation and EKG reference leads were also obtained. The patient has a history of an event of loss of consciousness while standing. She was previously taking tramadol. Background activity is 8 Hz symmetrically in the posterior leads which attenuates with eye opening. Hyperventilation is performed for 2-1/2 minutes with good effort with no lateralizing or epileptiform changes in the post hyperventilatory phase was unremarkable. The patient remained awake throughout the recording without lateralizing or epileptiform changes. Photic stimulation does generate a normal symmetric driving response in the posterior leads. EKG is normal sinus rhythm throughout the recording. Impression: Normal awake electroencephalogram.
--- NOTE | 2017-09-06 14:14 | CPS ---
24 hour EEG started at 1414.
[2017-09-06 14:57] LABS: M R Staph aureus DNA By PCR Negative (Negative); Probe Check PASS; Specimen Processing Control PASS
--- NOTE | 2017-09-06 15:00 | PN.NEURO_ITS ---
Patient Problems: Active and Suspected Problems Seizure (Acute) Elevated troponin (Acute) Syncope (Acute) Subjective: The patient now reports that she is sore in her back. No other complaints. According to nursing staff she had 2 events this morning by about 30 minutes described as tonic-clonic events but no other description is available. There does not appear to be incontinence but this is not clear. - Physical Exam General: Alert, Oriented x3, Cooperative HEENT: Atraumatic, PERRLA, EOMI, Normocephalic Neck: Supple, No JVD, Negative Carotid Bruits Lungs: Clear to auscultation, Normal air movement Cardiovascular: Regular rate, No murmurs Abdomen: Bowel Sounds Present, Soft, Non Tender Extremities: No edema, Capillary Refill Less than 3 Seconds Skin: No rashes, No breakdown Musculoskeletal: No Tenderness to Palpation of Joints or Extremities Neurological: Cranial nerves II-XII grossly intact Psych/Mental Status: Normal Affect, Appropriate Vital Signs Temp Pulse Resp BP Pulse Ox 36.9 C 99 19 H 151/64 H 97 09/06/17 12:00 09/06/17 14:00 09/06/17 14:00 09/06/17 14:00 09/06/17 14:00 Oxygen Flow Rate 2 Oxygen Delivery Method Nasal Cannula Weight: 74.9 kg Body Mass Index (BMI) 31.1 Intake and Output for Last 24 Hours 09/04/17 09/05/17 09/06/17 23:59 23:59 23:59 Intake Total 2055 / 2055 939 / 939 Output Total 200 / 200 Balance 1855 / 1855 939 / 939 Laboratory Tests Past 24 Hrs 09/06/17 09/06/17 09/06/17 05:45 05:45 05:45 WBC 6.6 RBC 4.40 Hgb 12.5 Hct 39.2 MCV 89.1 MCH 28.4 MCHC 31.9 L RDW 14.5 RDW Differential 47.2 H Plt Count 301 MPV 10.3 Immature Gran % (Auto) 0.000 Neut % (Auto) 55.6 Lymph % (Auto) 33.5 [place] % (Auto) 9.5 Eos % (Auto) 1.2 Baso % (Auto) 0.2 Absolute Neuts (auto) 3.7 Absolute Lymphs (auto) 2.20 Total Counted Not Reportable PT 13.4 INR 1.1 Sodium 139 Potassium 3.6 Chloride 104 Carbon Dioxide 26.0 Anion Gap 9 BUN 13 Creatinine 0.62 Estim Creat Clear Calc 72.81 Est GFR (MDRD) Af Amer 125 Est GFR (MDRD) Non-Af 103 BUN/Creatinine Ratio 20.8 H Glucose 93 Calcium 9.1 Total Creatine Kinase MRSA (PCR) 09/06/17 09/06/17 12:45 13:00 WBC RBC Hgb Hct MCV MCH MCHC RDW RDW Differential Plt Count MPV Immature Gran % (Auto) Neut % (Auto) Lymph % (Auto) [place] % (Auto) Eos % (Auto) Baso % (Auto) Absolute Neuts (auto) Absolute Lymphs (auto) Total Counted PT INR Sodium Potassium Chloride Carbon Dioxide Anion Gap BUN Creatinine Estim Creat Clear Calc Est GFR (MDRD) Af Amer Est GFR (MDRD) Non-Af BUN/Creatinine Ratio Glucose Calcium Total Creatine Kinase 146 MRSA (PCR) Negative EEG yesterday was normal. Assessment/Plan Active and Suspected Problems Seizure (Acute) Elevated troponin (Acute) Syncope (Acute) Seizure, new onset: Always discontinued at least 48 hours ago at this point for this should not be a factor now. Workup is negative including EEG. Luz has been added, the patient appears normal now but she does have a tongue ecchymosis. Nursing staff tells me that she was also pulling out her hair and appeared to be very agitated and postictal. I will continue a continuous EEG for the next 24 hours and order an LP for Friday.
[2017-09-06] MEDS: Enoxaparin 40 MG/0.4 ML Syringe SC (15:18)
[2017-09-06 15:27] LABS: Absolute Lymphocyte Count 0.87 X10^3/ul (0.83-4.51); Basophil# 0.01 X10^3/uL; Basophil% 0.1 % (0-1); Eosinophil# 0.01 X10^3/uL; Eosinophils% 0.1 % (0-5); Hemoglobin 11.9 g/dl (12.0-15.0); Lymphocyte # 0.87 X10^3/ul (4.0); Lymphocyte % 6.9 % (19-41); Mean Corp Hgb Conc 32.2 g/gl (32-36); Mean Corpuscular Hgb 28.5 pg (27.0-32.0); Mean Corpuscular Volume 88.7 fL (81-99); Mean Platelet Vol. 10.2 fl (6.2-12.0); Monocyte# 0.75 X10^3/uL; Monocyte% 5.9 % (0-10); Neutrophil % 86.6 % (47-70); Platelet Count 290 K/mm3 (150-450); RBC Distribution Width CV 14.4 % (11.6-14.6); RBC Distribution Width SD 46.7 fl (35.1-43.9); Red Blood Count 4.17 M/mm3 (4.2-5.4); White Blood Count 12.7 K/mm3 (4.4-11.0)
[2017-09-06 15:33] LABS: POSITIVE COUNT NO; POSITIVE DIFFERENTIAL NO; POSITIVE MORPHOLOGY NO
[2017-09-06] MEDS: Atorvastatin Calcium 80 MG Tablet PO (20:50)
[2017-09-06] MEDS: levETIRAcetam 1,000 MG Tablet 1000 MG PO (20:52)
[2017-09-07] VITALS (13 sets, daily range): BP systolic 91–153; BP diastolic 56–96; PULSE 59–93; RESP 13–21; TEMP 36.6–37.1; O2SAT 96–100
[2017-09-07] MEDS: 0.9% Normal Saline 1,000 ML 125 ML IV (05:00)
[2017-09-07] MEDS: CHLORHEXIDINE GLUC 2% CLOTH 1 EACH TOWELETTE TOPICAL (05:04)
--- NOTE | 2017-09-07 08:02 | PCM.PN.HOSP ---
Patient Problems: Active and Suspected Problems Seizure (Acute) Subjective: Procedures after the last 2 seizures. Patient has done well overnight. Patient has been put on a 24-hour EEG monitor. Vitals/I&O's: Vital Signs Temp Pulse Resp BP Pulse Ox 36.6 C 83 17 91/58 L 98 09/07/17 00:00 09/07/17 07:00 09/07/17 07:00 09/07/17 07:00 09/07/17 07:00 Oxygen Flow Rate 2 Oxygen Delivery Method Nasal Cannula Weight: 75.2 kg Body Mass Index (BMI) 31.1 Intake and Output for Last 24 Hours 09/05/17 09/06/17 09/07/17 23:59 23:59 23:59 Intake Total 2055 / 2055 1657 / 1657 1805 / 1805 Output Total 200 / 200 100 / 100 Balance 1855 / 1855 1557 / 1557 1805 / 1805 General: Alert, Cooperative, No apparent distress HEENT: Atraumatic, PERRLA, EOMI, Normocephalic Oral: Moist Mucosa, No Gingival or Mucosal Lesions/ Ulcerations Neck: No Nodes, Thyroid Normal Size and Texture Lungs: Clear to auscultation, Normal air movement, No rhonchi, No wheeze Cardiovascular: Regular rate, Regular Rhythm, Normal S1, Normal S2, No murmurs Abdomen: Bowel Sounds Present, Soft, Non Tender, Non-Distended, No Hepato-splenomegaly Extremities: No edema, No Calf Tenderness Skin: No rashes, No breakdown Musculoskeletal: No Tenderness to Palpation of Joints or Extremities, No Muscle Wasting Neurological: Cranial nerves II-XII grossly intact, Neuro grossly intact, Motor Exam 5/5 strength throughout Psych/Mental Status: Normal Affect, Appropriate Laboratory Results 09/06/17 12:45: Total Creatine Kinase 146 09/06/17 13:00: MRSA (PCR) Negative 09/06/17 15:15: WBC 12.7 H, RBC 4.17 L, Hgb 11.9 L, Hct 37.0, MCV 88.7, MCH 28.5, MCHC 32.2, RDW 14.4, RDW Differential 46.7 H, Plt Count 290, MPV 10.2, Immature Gran % (Auto) 0.400, Neut % (Auto) 86.6 H, Lymph % (Auto) 6.9 L, [place] % (Auto) 5.9, Eos % (Auto) 0.1, Baso % (Auto) 0.1, Absolute Neuts (auto) 11.0 H, Absolute Lymphs (auto) 0.87, Total Counted Not Reportable Current Medications Acetaminophen (Tylenol) 650 mg PO Q4H PRN PRN PRN Reason: Headache/Temp>99F Last Admin: 09/05/17 14:36 Dose: 650 mg Acetaminophen (Tylenol) 650 mg RECTAL Q4H PRN PRN PRN Reason: Headache/Temp>99F Acetaminophen (Tylenol Liquid) 650 mg NG Q4H PRN PRN PRN Reason: Headache/Temp>99F Hydrocodone Bitart/Acetaminophen ([place] 5mg-325mg) 1 - 2 tablet PO Q6H PRN PRN PRN Reason: Moderate-severe pain Al Hydroxide/Mg Hydroxide (Mylanta Ii) 30 ml PO Q6H PRN PRN PRN Reason: Gastric burning Aspirin (Aspirin, Baby) 81 mg PO DAILY@0800 [facility] Last Admin: 09/06/17 11:54 Dose: 81 mg Atorvastatin Calcium (Lipitor) 80 mg PO QHS [facility] Last Admin: 09/06/17 20:50 Dose: 80 mg Chlorhexidine Gluconate () 1 each TOPICAL DAILY [facility] Last Admin: 09/07/17 05:04 Dose: 1 each Enoxaparin Sodium (Lovenox) 40 mg SC DAILY@1000 [facility] Last Admin: 09/06/17 15:18 Dose: 40 mg Famotidine (Pepcid) 20 mg PO BID [facility] Last Admin: 09/06/17 20:50 Dose: 20 mg Hydralazine HCl (Apresoline) 10 mg IV Q4H PRN PRN PRN Reason: SBP > 160 Last Admin: 09/06/17 03:09 Dose: 10 mg Hydrochlorothiazide (Hydrochlorothiazide) 12.5 mg PO DAILY [facility] Last Admin: 09/06/17 11:53 Dose: 12.5 mg Sodium Chloride () 1,000 mls @ 125 mls/hr IV .Q8H [facility] Last Admin: 09/07/17 05:00 Dose: 125 mls/hr Sodium Chloride () 250 mls @ 15 mls/hr IV .[id number] PRN PRN Reason: SALINE FLUSH Levetiracetam (Keppra) 1,000 mg PO BID [facility] Last Admin: 09/06/17 20:52 Dose: 1,000 mg Lisinopril (Zestril) 10 mg PO DAILY [facility] Last Admin: 09/06/17 07:05 Dose: 10 mg Lorazepam (Ativan) 1 mg IV Q4H PRN PRN PRN Reason: Seizure Magnesium Hydroxide (Milk Of Magnesia) 30 ml PO DAILY PRN PRN Reason: Constipation Morphine Sulfate (Morphine) 1 - 2 mg IV Q4H PRN PRN PRN Reason: PAIN Last Admin: 09/07/17 04:24 Dose: 2 mg Nitroglycerin (Nitrostat) 0.4 mg SUBLINGUAL Q5M PRN PRN Reason: CHEST PAIN Ondansetron HCl (Zofran) 4 mg IV Q8H PRN PRN PRN Reason: NAUSEA Last Admin: 09/06/17 10:43 Dose: 4 mg Prednisone (Prednisone) 10 mg PO DAILY@0800 [facility] Last Admin: 09/06/17 11:53 Dose: 10 mg Promethazine HCl (Phenergan (Ll)) 12.5 mg IV Q6H PRN PRN PRN Reason: NAUSEA/VOMITING Sodium Chloride () 5 - 30 ml IV UD PRN PRN Reason: SALINE FLUSH Last Admin: 09/06/17 20:51 Dose: 10 ml Assessment/Plan Active and Suspected Problems Seizure (Acute) 1. Seizure Witnessed by the stress test lab. And then again on the floor. Patient has been started on Keppra on 09/06. Likely the cause of the patient's earlier syncope was a seizure. May be related with tramadol use. Workup for the syncope has been unremarkable, including MRI of the brain and head neck. Patient currently on a 24-hour EEG monitor. Patient to have an LP in the morning 09/08. 2. Elevated troponins Unclear etiology. Patient is not having nor was having any chest pain. Probably related with the patient's underlying seizure. Stress test was incomplete but otherwise unremarkable. 3. Left foot pain patient describes it over her pinky toe. I am not able to reproduce it. X-ray negative 4. DVT prophylaxis with Lovenox. Code Visit Inpatient E&M: 41881 [facility]
--- NOTE | 2017-09-07 08:06 | PN_ITS ---
Patient Problems: Active and Suspected Problems Seizure (Acute) Subjective: Procedures after the last 2 seizures. Patient has done well overnight. Patient has been put on a 24-hour EEG monitor. Vitals/I&O's: Vital Signs Temp Pulse Resp BP Pulse Ox 36.6 C 83 17 91/58 L 98 09/07/17 00:00 09/07/17 07:00 09/07/17 07:00 09/07/17 07:00 09/07/17 07:00 Oxygen Flow Rate 2 Oxygen Delivery Method Nasal Cannula Weight: 75.2 kg Body Mass Index (BMI) 31.1 Intake and Output for Last 24 Hours 09/05/17 09/06/17 09/07/17 23:59 23:59 23:59 Intake Total 2055 / 2055 1657 / 1657 1805 / 1805 Output Total 200 / 200 100 / 100 Balance 1855 / 1855 1557 / 1557 1805 / 1805 General: Alert, Cooperative, No apparent distress HEENT: Atraumatic, PERRLA, EOMI, Normocephalic Oral: Moist Mucosa, No Gingival or Mucosal Lesions/ Ulcerations Neck: No Nodes, Thyroid Normal Size and Texture Lungs: Clear to auscultation, Normal air movement, No rhonchi, No wheeze Cardiovascular: Regular rate, Regular Rhythm, Normal S1, Normal S2, No murmurs Abdomen: Bowel Sounds Present, Soft, Non Tender, Non-Distended, No Hepato- splenomegaly Extremities: No edema, No Calf Tenderness Skin: No rashes, No breakdown Musculoskeletal: No Tenderness to Palpation of Joints or Extremities, No Muscle Wasting Neurological: Cranial nerves II-XII grossly intact, Neuro grossly intact, Motor Exam 5/5 strength throughout Psych/Mental Status: Normal Affect, Appropriate Laboratory Results 09/06/17 12:45: Total Creatine Kinase 146 09/06/17 13:00: MRSA (PCR) Negative 09/06/17 15:15: WBC 12.7 H, RBC 4.17 L, Hgb 11.9 L, Hct 37.0, MCV 88.7, MCH 28.5 , MCHC 32.2, RDW 14.4, RDW Differential 46.7 H, Plt Count 290, MPV 10.2, Immature Gran % (Auto) 0.400, Neut % (Auto) 86.6 H, Lymph % (Auto) 6.9 L, [place] % (Auto) 5.9, Eos % (Auto) 0.1, Baso % (Auto) 0.1, Absolute Neuts (auto) 11.0 H , Absolute Lymphs (auto) 0.87, Total Counted Not Reportable Current Medications Acetaminophen (Tylenol) 650 mg PO Q4H PRN PRN PRN Reason: Headache/Temp>99F Last Admin: 09/05/17 14:36 Dose: 650 mg Acetaminophen (Tylenol) 650 mg RECTAL Q4H PRN PRN PRN Reason: Headache/Temp>99F Acetaminophen (Tylenol Liquid) 650 mg NG Q4H PRN PRN PRN Reason: Headache/Temp>99F Hydrocodone Bitart/Acetaminophen ([place] 5mg-325mg) 1 - 2 tablet PO Q6H PRN PRN PRN Reason: Moderate-severe pain Al Hydroxide/Mg Hydroxide (Mylanta Ii) 30 ml PO Q6H PRN PRN PRN Reason: Gastric burning Aspirin (Aspirin, Baby) 81 mg PO DAILY@0800 [facility] Last Admin: 09/06/17 11:54 Dose: 81 mg Atorvastatin Calcium (Lipitor) 80 mg PO QHS [facility] Last Admin: 09/06/17 20:50 Dose: 80 mg Chlorhexidine Gluconate () 1 each TOPICAL DAILY [facility] Last Admin: 09/07/17 05:04 Dose: 1 each Enoxaparin Sodium (Lovenox) 40 mg SC DAILY@1000 [facility] Last Admin: 09/06/17 15:18 Dose: 40 mg Famotidine (Pepcid) 20 mg PO BID [facility] Last Admin: 09/06/17 20:50 Dose: 20 mg Hydralazine HCl (Apresoline) 10 mg IV Q4H PRN PRN PRN Reason: SBP > 160 Last Admin: 09/06/17 03:09 Dose: 10 mg Hydrochlorothiazide (Hydrochlorothiazide) 12.5 mg PO DAILY [facility] Last Admin: 09/06/17 11:53 Dose: 12.5 mg Sodium Chloride () 1,000 mls @ 125 mls/hr IV .Q8H [facility] Last Admin: 09/07/17 05:00 Dose: 125 mls/hr Sodium Chloride () 250 mls @ 15 mls/hr IV .[id number] PRN PRN Reason: SALINE FLUSH Levetiracetam (Keppra) 1,000 mg PO BID [facility] Last Admin: 09/06/17 20:52 Dose: 1,000 mg Lisinopril (Zestril) 10 mg PO DAILY [facility] Last Admin: 09/06/17 07:05 Dose: 10 mg Lorazepam (Ativan) 1 mg IV Q4H PRN PRN PRN Reason: Seizure Magnesium Hydroxide (Milk Of Magnesia) 30 ml PO DAILY PRN PRN Reason: Constipation Morphine Sulfate (Morphine) 1 - 2 mg IV Q4H PRN PRN PRN Reason: PAIN Last Admin: 09/07/17 04:24 Dose: 2 mg Nitroglycerin (Nitrostat) 0.4 mg SUBLINGUAL Q5M PRN PRN Reason: CHEST PAIN Ondansetron HCl (Zofran) 4 mg IV Q8H PRN PRN PRN Reason: NAUSEA Last Admin: 09/06/17 10:43 Dose: 4 mg Prednisone (Prednisone) 10 mg PO DAILY@0800 [facility] Last Admin: 09/06/17 11:53 Dose: 10 mg Promethazine HCl (Phenergan (Ll)) 12.5 mg IV Q6H PRN PRN PRN Reason: NAUSEA/VOMITING Sodium Chloride () 5 - 30 ml IV UD PRN PRN Reason: SALINE FLUSH Last Admin: 09/06/17 20:51 Dose: 10 ml Assessment/Plan Active and Suspected Problems Seizure (Acute) 1. Seizure Witnessed by the stress test lab. And then again on the floor. Patient has been started on Keppra on 09/06. Likely the cause of the patient's earlier syncope was a seizure. May be related with tramadol use. Workup for the syncope has been unremarkable, including MRI of the brain and head neck. Patient currently on a 24-hour EEG monitor. Patient to have an LP in the morning 09/08. 2. Elevated troponins Unclear etiology. Patient is not having nor was having any chest pain. Probably related with the patient's underlying seizure. Stress test was incomplete but otherwise unremarkable. 3. Left foot pain patient describes it over her pinky toe. I am not able to reproduce it. X-ray negative 4. DVT prophylaxis with Lovenox. Code Visit Inpatient E&M: 15257 [facility]
[2017-09-07] MEDS: Aspirin 81 MG TAB.CHEW PO (10:56)
[2017-09-07] MEDS: Famotidine 20 MG Tablet PO ×2 (10:57→21:58)
[2017-09-07] MEDS: Lisinopril 10 MG Tablet PO (10:57)
[2017-09-07] MEDS: levETIRAcetam 1,000 MG Tablet 1000 MG PO ×2 (10:57→21:58)
[2017-09-07] MEDS: HYDROCHLOROTHIAZIDE 12.5 MG CAPSULE PO (10:57)
[2017-09-07 12:24] LABS: CPK Total, Creatine Kinase 69 U/L (26-192)
[2017-09-07] MEDS: Lidocaine 5% Patch 1 PATCH TOPICAL (19:08)
[2017-09-07] MEDS: Atorvastatin Calcium 80 MG Tablet PO (21:58)
--- NOTE | 2017-09-08 | FLU_PTH ---
PATIENT: MILIND DAWSON LOC: MS2 U#:[id number] AGE/SX: 62/F ROOM: [facility] RE09/04/[address]: Dr. Paul Larkin MD : 1955 BED: 1 DIS: 09/08/2017 SPEC #: [id number] RECD: 09/08/17 14:15 STATUS: ZOIE REQ #: [id number] IAN: 09/08/17 00:[address]: Paul Larkin DEPT: CYTOLOGY RECD BY: Pranay Dill ENTERED: 09/09/17 11:55 SP TYPE: Fluid OTHR DR: MD Dr. Génesis Neri MD Dr. Norman Friedman, MD Tissues: Cerebrospinal Fluid Procedures: Pap Stain (control) Special Stain Group II Special Stain Group I Surgery Specimen Level IV AFB Stain (control) Cytospin Fluid HEADER OPERATION: Fluoroscopic-guided lumbar puncture PRE-OP DIAGNOSIS: Seizure activity TISSUE SUBMITTED: Cerebrospinal fluid for cytology DIAGNOSIS CYTOLOGY Cerebrospinal fluid for cytology (cytospins): Virtually acellular specimen. Negative for acid fast bacilli. AM:sveta 09/10/17 COMMENT AFB stain with matched control was used in the evaluation of this case. CYTOLOGY STUDY Slides are reviewed. CYTOLOGY GROSS Received is 3 ml of clear colorless fluid labeled with the patient's name and and designated per the requisition as CSF. Submitted for cytology preparation. 09/09/17 TC:5 CPT: 79902, 35640
[2017-09-08 02:47] VITALS: BP 145/64; PULSE 86; RESP 14; TEMP 37; O2SAT 100
--- NOTE | 2017-09-08 06:24 | EEG ---
- Electroencephalogram date of service 09/07/17 24hr video assisted continuous EEG 24hr video assisted EEG performed utilizing the international 10-20 electrode placement protocol due to recurrent multiple seizures. ekg reference leads were also obtained. 24hrs of monitoring was reviewed only with spike detection and ekg. pt remained NSR throughout the recording. wakefulness and all stages of sleep were recording without lateralizing or epileptiform changes. background activity is 8-9hz symmetrically in the posterior leads during wakefulness. there were no episodes of abnormal activity on spike detection. impression: normal awake and asleep 24hr video assisted EEG.
[2017-09-08 07:00] VITALS: O2SAT 98
--- NOTE | 2017-09-08 07:54 | NURSING ---
radiology called at this time and states that patient will have Lumbar puncture today, scheduled for 1PM.
--- NOTE | 2017-09-08 08:21 | PCM.PN.HOSP ---
Patient Problems: Active and Suspected Problems Seizure (Acute) Subjective: Patient is a 62-year-old lady with past medical history significant for hypertension, dyslipidemia arthritis brought to the emergency department after having experienced seizures at home. Patient apparently did experience 2 more seizures while on admission she was apparently taking tramadol for pain discontinued since admission. Patient had a 24 hour continuous EEG no focal areas of seizure activity witnessed. Scheduled to undergo lumbar puncture on 09/08/16 to complete her workup Objective: GENERAL: cooperative HEENT: Clear conjunctiva, NECK; supple, normal thyroid, CHEST: Diminished to auscultation bilaterally, HEART: Regular S1 S2, no audible murmurs ABDOMEN: soft, non-tender, normoactive bowel sounds, RECTAL: deferred EXTREMITIES: No edema, no clubbing, no cyanosis. QUALITY ENGINEER: Awake no lateralizing signs. SKIN: No lesions no erythema, Vitals/I&O's: Vital Signs Temp Pulse Resp BP Pulse Ox 98.6 F 86 14 145/64 H 100 09/08/17 02:47 09/08/17 02:47 09/08/17 02:47 09/08/17 02:47 09/08/17 02:47 Oxygen Flow Rate 2 Oxygen Delivery Method Room Air Weight: 75.2 kg Body Mass Index (BMI) 31.1 Intake and Output for Last 24 Hours 09/06/17 09/07/17 09/08/17 23:59 23:59 23:59 Intake Total 1657 / 1657 2330 / 2330 275 / 275 Output Total 100 / 100 Balance 1557 / 1557 2330 / 2330 275 / 275 Laboratory Results 09/07/17 12:00: Total Creatine Kinase 69 Current Medications Acetaminophen (Tylenol) 650 mg PO Q4H PRN PRN PRN Reason: Headache/Temp>99F Last Admin: 09/05/17 14:36 Dose: 650 mg Acetaminophen (Tylenol) 650 mg RECTAL Q4H PRN PRN PRN Reason: Headache/Temp>99F Acetaminophen (Tylenol Liquid) 650 mg NG Q4H PRN PRN PRN Reason: Headache/Temp>99F Al Hydroxide/Mg Hydroxide (Mylanta Ii) 30 ml PO Q6H PRN PRN PRN Reason: Gastric burning Aspirin (Aspirin, Baby) 81 mg PO DAILY@0800 [facility] Last Admin: 09/07/17 10:56 Dose: 81 mg Atorvastatin Calcium (Lipitor) 80 mg PO QHS [facility] Last Admin: 09/07/17 21:58 Dose: 80 mg Famotidine (Pepcid) 20 mg PO BID [facility] Last Admin: 09/07/17 21:58 Dose: 20 mg Hydralazine HCl (Apresoline) 10 mg IV Q4H PRN PRN PRN Reason: SBP > 160 Last Admin: 09/06/17 03:09 Dose: 10 mg Hydrochlorothiazide (Hydrochlorothiazide) 12.5 mg PO DAILY [facility] Last Admin: 09/07/17 10:57 Dose: 12.5 mg Levetiracetam (Keppra) 1,000 mg PO BID [facility] Last Admin: 09/07/17 21:58 Dose: 1,000 mg Lidocaine (Lidoderm Patch) 1 patch TOPICAL DAILY@1800 [facility] PRN Reason: Protocol Last Admin: 09/07/17 19:08 Dose: 1 patch Lisinopril (Zestril) 10 mg PO DAILY [facility] Last Admin: 09/07/17 10:57 Dose: 10 mg Lorazepam (Ativan) 1 mg IV Q4H PRN PRN PRN Reason: Seizure Magnesium Hydroxide (Milk Of Magnesia) 30 ml PO DAILY PRN PRN Reason: Constipation Nitroglycerin (Nitrostat) 0.4 mg SUBLINGUAL Q5M PRN PRN Reason: CHEST PAIN Ondansetron HCl (Zofran) 4 mg IV Q8H PRN PRN PRN Reason: NAUSEA Last Admin: 09/06/17 10:43 Dose: 4 mg Prednisone (Prednisone) 10 mg PO DAILY@0800 [facility] Last Admin: 09/07/17 10:57 Dose: 10 mg Promethazine HCl (Phenergan (Ll)) 12.5 mg IV Q6H PRN PRN PRN Reason: NAUSEA/VOMITING Sodium Chloride () 5 - 30 ml IV UD PRN PRN Reason: SALINE FLUSH Assessment/Plan Active and Suspected Problems Seizure (Acute) Patient is a 62-year-old lady with past medical history significant for hypertension, dyslipidemia arthritis brought to the emergency department after having experienced seizures at home. Patient apparently did experience 2 more seizures while on admission she was apparently taking tramadol for pain discontinued since admission. Patient had a 24 hour continuous EEG no focal areas of seizure activity witnessed 1. Seizure: Possibly related to patient tramadol which has since been discontinued. For continuous EEG did not demonstrate any focal areas of seizure activity. Patient scheduled to undergo lumbar puncture. Patient has been seen in consultation by Dr. Matamoros with neurology his note and recommendations reviewed. Patient subsequently started on Keppra. Did executive assistant to general counsel patient as well as the family ( and son) on the need for patient not to drive for at least 3-6 months unless cleared by neurology. She was also instructed to avoid high or operating heavy machinery 2. Elevated troponin attributed to above 3. Psoriatic arthritis previously on Enbrel discontinued as a result of worsening liver function; by rheumatology as outpatient 4. Hypertension-blood pressure controlled, home medications continued with dose adjustment as needed 5. Dyslipidemia-patient is on statin therapy, continued at home dose 6. DVT prophylaxis SC Lovenox Code Visit Inpatient E&M: 45432 Subs Hosp L2
[2017-09-08 09:07] VITALS: BP 154/74; PULSE 102; RESP 18; TEMP 36.3; O2SAT 94
--- NOTE | 2017-09-08 09:07 | NURSING ---
Requests for medical records sent to both Dr. Laws and Dr. Faust office as ordered at this time.
[2017-09-08] MEDS: HYDROCHLOROTHIAZIDE 12.5 MG CAPSULE PO (09:13)
[2017-09-08] MEDS: Lisinopril 10 MG Tablet PO (09:13)
[2017-09-08] MEDS: Aspirin 81 MG TAB.CHEW PO (09:13)
[2017-09-08] MEDS: levETIRAcetam 1,000 MG Tablet 1000 MG PO (09:13)
[2017-09-08] MEDS: Famotidine 20 MG Tablet PO (09:13)
--- NOTE | 2017-09-08 10:19 | NURSING ---
Called radiology at this time to ensure patient should be NPO 2 hours prior to lumbar puncture- confirmed and ordered per policy.
--- NOTE | 2017-09-08 12:41 | NURSING ---
patient going down for lumbar puncture at this time.
--- NOTE | 2017-09-08 12:55 | RAD_ITS ---
PROCEDURE: Fluoroscopic guided Lumbar Puncture. DATE: September 08, 2017. CLINICAL INDICATION: Seizure activity PHYSICIAN: Timoteo Otoole M.D. MEDICATIONS: 1% lidocaine administered subcutaneously for local anesthesia. ACCESS SITE: Lower posterior back. NEEDLE: 22-gauge spinal needle. SPECIMEN: Approximately 12 mL clear]CSF fluid. FLUOROSCOPY TIME (if supplied): (0:01) minutes/seconds COMPLICATIONS: None immediate. The risks, benefits, and alternatives to the procedure were explained to the patient. The specific risks of bleeding, infection, and neurovascular injury were detailed and accepted. Witnessed informed consent was obtained. The patient was placed on the fluoroscopic table in the prone position. The level for needle entry was determined and marked. The overlying skin was cleaned and prepped in the usual sterile fashion. 2% lidocaine was administered subcutaneously for local anesthesia. Under fluoroscopic guidance a 22-gauge spinal needle was advanced. The thecal sac was entered at the L2-L3 vertebral level. The inner stylet was removed. There was spontaneous flow of clear CSF fluid. The patient was placed in a reversed Trendelenburg position. Approximately 12 mL of cerebrospinal fluid was collected using gravity. The specimen was collected and submitted to the laboratory for further evaluation. The needle was withdrawn,. Hemostasis was achieved and a sterile dressing placed. The patient tolerated the procedure well without any immediate complications. The patient was placed supine with head elevated and returned to the floor in stable condition. RAD/Fluoro Guided Lumbar Puncture IMPRESSION: Successful fluoroscopic-guided lumbar puncture. Electronically Signed: Timoteo Otoole MD at 14:28 EST Tel [phone], Service support ,
[2017-09-08 14:09] VITALS: BP 140/68; PULSE 101; RESP 18; TEMP 37.1; O2SAT 98
[2017-09-08 14:30] LABS: Acid Fast Stain SEE PATHOLOGY REPORT; Cytology, Body Fluid / CSF SEE PATHOLOGY REPORT
[2017-09-08 15:04] LABS: Body Fluid Mononuclear WBC # 0.004 10^3/uL; Total Cell Count CSF 0.004 10^3/uL (0.000-0.000); White Count, CSF 0.004 10^3/uL (0.000-0.000)
[2017-09-08 15:08] LABS: Glucose Spinal Fluid 78 mg/dL (40-75)
[2017-09-08 15:14] LABS: Appearance CSF (character) CLEAR (Clear); Auto B Fluid Analyzer BKGD Ct COUNTS W/IN LIMITS (W/IN LIMITS); CSF Color COLORLESS (Colorless); Tested Tube # 4
[2017-09-08 15:17] LABS: Body Fluid QC Type(s) BF1Q; RBC Count, Spinal Fluid 0 /mm-3 (None seen)
--- NOTE | 2017-09-08 15:47 | PCM.DC ---
- Discharge Diagnoses Current Active Problems: Current Active and Chronic Problems Seizure (Acute) Hypertension (Chronic) Obesity (BMI 30.0-34.9) (Chronic) Psoriatic arthritis (Chronic) Rheumatoid arthritis (Chronic) You will use the following diet at home:: No restrictions Discharge Activity: May Not Drive Allergies/Adverse Reactions: Allergies leflunomide [From Arava] Adverse Reaction (Verified 09/05/17 00:58) Other LIVER ENZYMES ELEVATED methotrexate [Methotrexate] Adverse Reaction (Verified 09/05/17 00:58) Other INCREASED LIVER ENZYMES sulfasalazine [Sulfasalazine] Adverse Reaction (Verified 09/05/17 00:58) Other ELEVATED LIVER ENZYMES Medications to take at Discharge PredniSONE 10 mg PO TID PRN PRN 11/23/14 Infliximab-DYYB [Inflectra] 100 mg IV QMONTH 09/04/17 Acetaminophen [Tylenol Tablet] 650 mg PO Q4H PRN PRN tablet 09/08/17 Hydrochlorothiazide 12.5 mg PO DAILY #60 cap 09/08/17 Levetiracetam [Keppra] 1,000 mg PO BID #120 tab 09/08/17 Lisinopril [Zestril] 10 mg PO DAILY #60 tab 09/08/17 The following prescriptions were given: Hydrochlorothiazide 12.5 mg PO DAILY #60 cap Levetiracetam [Keppra] 1,000 mg PO BID #120 tab Lisinopril [Zestril] 10 mg PO DAILY #60 tab Orders to be completed after discharge: Occupational Therapy Eval Location: None Selected Physical Therapy Evaluation Location: None Selected Primary Care Physician: Génesis Faust MD [Primary Care Provider] - Please follow up with your Primary Care Physician in: in 3-5 days Please Follow Up With: Gómez Carney MD When: in 2-4 weeks Proposed Discharge Date: 09/08/17
--- NOTE | 2017-09-08 15:49 | PCM.DC.SUM ---
Discharge Date and Diagnosis - Problem List Patient Problems: Active and Suspected Problems Seizure (Acute) Date of Admission: 09/04/17 Date of Discharge: 09/08/17 - Primary Discharge Diagnosis Active and Suspected Problems Seizure (Acute) - Secondary Discharge Diagnosis Chronic Problems Hypertension (Chronic) Obesity (BMI 30.0-34.9) (Chronic) Psoriatic arthritis (Chronic) Rheumatoid arthritis (Chronic) Hospital Course and Treatment Imaging Results: Clinical Impression(s) from Imaging Studies Brain CT 09/04/17 21:22 IMPRESSION: Normal unenhanced CT scan of the brain. Electronically Signed: Grzegorz Blanchard MD at 21:44 EST , Service support , Brain MRI 09/05/17 00:30 IMPRESSION: No acute intracranial abnormality. Acute left maxillary sinus disease. Electronically Signed: Omega Christian MD at 11:04 EST Tel , Service support , Chest X-Ray 09/05/17 00:30 IMPRESSION: No active pulmonary disease. Electronically Signed: Sam Campos MD at 0:59 EST Tel , Service support , Head MRA 09/05/17 00:30 IMPRESSION: Normal MRA of the head Electronically Signed: Omega Christian MD at 10:37 EST Tel , Service support , Neck MRA 09/05/17 00:30 IMPRESSION: 50-69% stenosis on the right. Correlation with ultrasonography can be obtained. Electronically Signed: Omega Christian MD at 10:43 EST Tel , Service support , Chest CTA 09/05/17 02:04 IMPRESSION: No evidence of pulmonary embolism. /Patchy infiltrates in the left upper and lower lobes likely due to pneumonia. Atypical pulmonary edema is unlikely. Atelectatic changes in the left lower lobe. Electronically Signed: Sam Campos MD at 3:13 EST Tel , Service support , Foot X-Ray 09/05/17 16:45 IMPRESSION: No evidence of fracture or dislocation. Osteopenia. at 1817 Reported and signed by: Katharine Rivera MD Electronically Signed: Katharine Rivera MD at 17:15 EST Tel , Service support , Brain CT 09/06/17 10:16 IMPRESSION: No acute intracranial process. No significant change since previous exam. Left maxillary sinus disease. Electronically Signed: Sam Campos MD at 13:52 EST Tel , Service support , Lumbar Puncture Fluoroscopy 09/08/17 12:55 IMPRESSION: Successful fluoroscopic-guided lumbar puncture. Electronically Signed: Timoteo Otoole MD at 14:28 EST Tel [phone], Service support , Summary of Care Provided: Patient is a 62-year-old lady with past medical history significant for hypertension, dyslipidemia arthritis brought to the emergency department after having experienced seizures at home. Patient apparently did experience 2 more seizures while on admission she was apparently taking tramadol for pain discontinued since admission. Patient had a 24 hour continuous EEG no focal areas of seizure activity witnessed 1. Seizure: Possibly related to patient tramadol which has since been discontinued. For continuous EEG did not demonstrate any focal areas of seizure activity. Patient underwent lumbar puncture negative study. Patient has been seen in consultation by Dr. Matamoros with neurology his note and recommendations reviewed. Patient subsequently started on Keppra. Did tour counselor patient as well as the family ( and son) on the need for patient not to drive for at least 3-6 months unless cleared by neurology. She was also instructed to avoid high or operating heavy machinery 2. Elevated troponin attributed to above 3. Psoriatic arthritis previously on Enbrel discontinued as a result of worsening liver function; by rheumatology as outpatient 4. Hypertension-blood pressure controlled, home medications continued with dose adjustment as needed 5. Dyslipidemia-patient is on statin therapy, continued at home dose 6. DVT prophylaxis SC Lovenox Discharge Activity: May Not Drive Home Medications: Medications to take at Discharge PredniSONE 10 mg PO TID PRN PRN 11/23/14 Infliximab-DYYB [Inflectra] 100 mg IV QMONTH 09/04/17 Acetaminophen [Tylenol Tablet] 650 mg PO Q4H PRN PRN tablet 09/08/17 Hydrochlorothiazide 12.5 mg PO DAILY #60 cap 09/08/17 Levetiracetam [Keppra] 1,000 mg PO BID #120 tab 09/08/17 Lisinopril [Zestril] 10 mg PO DAILY #60 tab 09/08/17 Following Prescrptions Were Given to Patient: Hydrochlorothiazide 12.5 mg PO DAILY #60 cap Levetiracetam [Keppra] 1,000 mg PO BID #120 tab Lisinopril [Zestril] 10 mg PO DAILY #60 tab Other Amb Orders: Occupational Therapy Eval Location: None Selected Physical Therapy Evaluation Location: None Selected Primary Care Physician: Génesis Faust MD [Primary Care Provider] - Please follow up with your Primary Care Physician in: in 3-5 days Please Follow Up With: Gómez Carney MD When: in 2-4 weeks Disposition: Home Minutes spent on discharge:: 35 Patient Condition:: Stable Meaningful Use Info Meaningful Use Diagnoses (Choose all that apply): None applicable Code Visit Inpatient E&M: 38490 Disch Hosp
--- NOTE | 2017-09-08 15:52 | DS.PCM_ITS ---
Discharge Date and Diagnosis - Problem List Patient Problems: Active and Suspected Problems Seizure (Acute) Date of Admission: 09/04/17 Date of Discharge: 09/08/17 - Primary Discharge Diagnosis Active and Suspected Problems Seizure (Acute) - Secondary Discharge Diagnosis Chronic Problems Hypertension (Chronic) Obesity (BMI 30.0-34.9) (Chronic) Psoriatic arthritis (Chronic) Rheumatoid arthritis (Chronic) Hospital Course and Treatment Imaging Results: Clinical Impression(s) from Imaging Studies Brain CT 09/04/17 21:22 IMPRESSION: Normal unenhanced CT scan of the brain. Electronically Signed: Grzegorz Blanchard MD at 21:44 EST , Service support , Brain MRI 09/05/17 00:30 IMPRESSION: No acute intracranial abnormality. Acute left maxillary sinus disease. Electronically Signed: Omega Christian MD at 11:04 EST Tel , Service support , Chest X-Ray 09/05/17 00:30 IMPRESSION: No active pulmonary disease. Electronically Signed: Sam Campos MD at 0:59 EST Tel , Service support , Head MRA 09/05/17 00:30 IMPRESSION: Normal MRA of the head Electronically Signed: Omega Christian MD at 10:37 EST Tel , Service support , Neck MRA 09/05/17 00:30 IMPRESSION: 50-69% stenosis on the right. Correlation with ultrasonography can be obtained. Electronically Signed: Omega Christian MD at 10:43 EST Tel , Service support , Chest CTA 09/05/17 02:04 IMPRESSION: No evidence of pulmonary embolism. /Patchy infiltrates in the left upper and lower lobes likely due to pneumonia. Atypical pulmonary edema is unlikely. Atelectatic changes in the left lower lobe. Electronically Signed: Sam Campos MD at 3:13 EST Tel , Service support , Foot X-Ray 09/05/17 16:45 IMPRESSION: No evidence of fracture or dislocation. Osteopenia. at 1817 Reported and signed by: Katharine Rivera MD Electronically Signed: Katharine Rivera MD at 17:15 EST Tel , Service support , Brain CT 09/06/17 10:16 IMPRESSION: No acute intracranial process. No significant change since previous exam. Left maxillary sinus disease. Electronically Signed: Sam Campos MD at 13:52 EST Tel , Service support , Lumbar Puncture Fluoroscopy 09/08/17 12:55 IMPRESSION: Successful fluoroscopic-guided lumbar puncture. Electronically Signed: Timoteo Otoole MD at 14:28 EST Tel [phone], Service support , Summary of Care Provided: Patient is a 62-year-old lady with past medical history significant for hypertension, dyslipidemia arthritis brought to the emergency department after having experienced seizures at home. Patient apparently did experience 2 more seizures while on admission she was apparently taking tramadol for pain discontinued since admission. Patient had a 24 hour continuous EEG no focal areas of seizure activity witnessed 1. Seizure: Possibly related to patient tramadol which has since been discontinued. For continuous EEG did not demonstrate any focal areas of seizure activity. Patient underwent lumbar puncture negative study. Patient has been seen in consultation by Dr. Matamoros with neurology his note and recommendations reviewed. Patient subsequently started on Keppra. Did trauma counsellor patient as well as the family ( and son) on the need for patient not to drive for at least 3-6 months unless cleared by neurology. She was also instructed to avoid high or operating heavy machinery 2. Elevated troponin attributed to above 3. Psoriatic arthritis previously on Enbrel discontinued as a result of worsening liver function; by rheumatology as outpatient 4. Hypertension-blood pressure controlled, home medications continued with dose adjustment as needed 5. Dyslipidemia-patient is on statin therapy, continued at home dose 6. DVT prophylaxis SC Lovenox Discharge Activity: May Not Drive Home Medications: Medications to take at Discharge PredniSONE 10 mg PO TID PRN PRN 11/23/14 Infliximab-DYYB [Inflectra] 100 mg IV QMONTH 09/04/17 Acetaminophen [Tylenol Tablet] 650 mg PO Q4H PRN PRN tablet 09/08/17 Hydrochlorothiazide 12.5 mg PO DAILY #60 cap 09/08/17 Levetiracetam [Keppra] 1,000 mg PO BID #120 tab 09/08/17 Lisinopril [Zestril] 10 mg PO DAILY #60 tab 09/08/17 Following Prescrptions Were Given to Patient: Hydrochlorothiazide 12.5 mg PO DAILY #60 cap Levetiracetam [Keppra] 1,000 mg PO BID #120 tab Lisinopril [Zestril] 10 mg PO DAILY #60 tab Other Amb Orders: Occupational Therapy Eval Location: None Selected Physical Therapy Evaluation Location: None Selected Primary Care Physician: Génesis Faust MD [Primary Care Provider] - Please follow up with your Primary Care Physician in: in 3-5 days Please Follow Up With: Gómez Carney MD When: in 2-4 weeks Disposition: Home Minutes spent on discharge:: 35 Patient Condition:: Stable Meaningful Use Info Meaningful Use Diagnoses (Choose all that apply): None applicable Code Visit Inpatient E&M: 55710 Disch Hosp
--- NOTE | 2017-09-08 16:05 | PCM.PN.NEU ---
Patient Problems: Active and Suspected Problems Seizure (Acute) Subjective: No issues overnight - Physical Exam General: Alert, Oriented x3, Cooperative HEENT: Atraumatic, PERRLA, EOMI, Normocephalic Neck: Supple, No JVD, Negative Carotid Bruits Lungs: Clear to auscultation, Normal air movement Cardiovascular: Regular rate, No murmurs Abdomen: Bowel Sounds Present, Soft, Non Tender Extremities: No edema, Capillary Refill Less than 3 Seconds Skin: No rashes, No breakdown Musculoskeletal: No Tenderness to Palpation of Joints or Extremities Neurological: Cranial nerves II-XII grossly intact, Deep Tendon Reflexes 2+/4 and Symmetrical, Neuro grossly intact, Motor Exam 5/5 strength throughout, Muscle tone normal, Sensory exam intact to light touch and pain, Coordination normal Psych/Mental Status: Normal Affect, Appropriate Vital Signs Temp Pulse Resp BP Pulse Ox 98.7 F 101 H 18 140/68 H 98 09/08/17 14:09 09/08/17 14:09 09/08/17 14:09 09/08/17 14:09 09/08/17 14:09 Oxygen Flow Rate 2 Oxygen Delivery Method Room Air Weight: 75.2 kg Body Mass Index (BMI) 31.1 Intake and Output for Last 24 Hours 09/06/17 09/07/17 09/08/17 23:59 23:59 23:59 Intake Total 1657 / 1657 2330 / 2330 275 / 275 Output Total 100 / 100 100 / 100 Balance 1557 / 1557 2330 / 2330 175 / 175 Microbiology Past 72 Hours 09/08/17 14:15 Gram Stain - Final Csf, Spinal Fluid Laboratory Tests Past 24 Hrs 09/08/17 09/08/17 09/08/17 14:15 14:15 14:15 Fld Polynuclear WBCs # Fld Polynuclear WBCs % Fluid Mononuclear WBCs Fld Mononuclear WBCs % Fluid Neutrophils Fluid Lymphocytes Fluid Monocytes Fluid Plasma Cells Fluid Macrophages Fld Mesothelial Cells Fluid Other Cells Fl Pathologist Comment Fluid Total Protein CSF Appearance CSF Color CSF WBC CSF RBC CSF Cell Count Tube # CSF Total Cell Counted CSF Comment CSF Glucose 78 H CSF Total Protein 36.0 CSF Cryptococcus Ag Cancelled Acid Fast Stain Herpes Simplex Culture Cancelled HSV I DNA PCR Cancelled HSV II DNA PCR Cancelled HSV Final Result Cancelled Miscellaneous Cytology 09/08/17 09/08/17 09/08/17 14:15 14:15 14:15 Fld Polynuclear WBCs # 0.000 Fld Polynuclear WBCs % 0.0 Fluid Mononuclear WBCs 0.004 Fld Mononuclear WBCs % 100.0 Fluid Neutrophils Fluid Lymphocytes Fluid Monocytes Fluid Plasma Cells Fluid Macrophages Fld Mesothelial Cells Fluid Other Cells Fl Pathologist Comment Fluid Total Protein CSF Appearance CLEAR CSF Color COLORLESS CSF WBC 0.004 H CSF RBC 0 CSF Cell Count Tube # 4 CSF Total Cell Counted 0.004 H CSF Comment May follow CSF Glucose CSF Total Protein CSF Cryptococcus Ag Acid Fast Stain Cancelled Pending Herpes Simplex Culture HSV I DNA PCR HSV II DNA PCR HSV Final Result Miscellaneous Cytology Cancelled Pending 09/08/17 09/08/17 09/08/17 14:15 14:15 14:15 Fld Polynuclear WBCs # Fld Polynuclear WBCs % Fluid Mononuclear WBCs Fld Mononuclear WBCs % Fluid Neutrophils Fluid Lymphocytes Fluid Monocytes Fluid Plasma Cells Fluid Macrophages Fld Mesothelial Cells Fluid Other Cells Fl Pathologist Comment Fluid Total Protein Cancelled CSF Appearance CSF Color CSF WBC CSF RBC CSF Cell Count Tube # CSF Total Cell Counted CSF Comment CSF Glucose Cancelled CSF Total Protein CSF Cryptococcus Ag Pending Acid Fast Stain Herpes Simplex Culture Pending HSV I DNA PCR Pending HSV II DNA PCR Pending HSV Final Result Pending Miscellaneous Cytology 09/08/17 14:15 Fld Polynuclear WBCs # Fld Polynuclear WBCs % Fluid Mononuclear WBCs Fld Mononuclear WBCs % Fluid Neutrophils Cancelled Fluid Lymphocytes Cancelled Fluid Monocytes Cancelled Fluid Plasma Cells Cancelled Fluid Macrophages Cancelled Fld Mesothelial Cells Cancelled Fluid Other Cells Cancelled Fl Pathologist Comment Cancelled Fluid Total Protein CSF Appearance CSF Color CSF WBC CSF RBC CSF Cell Count Tube # CSF Total Cell Counted CSF Comment CSF Glucose CSF Total Protein CSF Cryptococcus Ag Acid Fast Stain Herpes Simplex Culture HSV I DNA PCR HSV II DNA PCR HSV Final Result Miscellaneous Cytology Assessment/Plan Active and Suspected Problems Seizure (Acute) 62 yr CF with PMH HTN, HLD, Psoriatic arthritis admitted with seizures, likely secondary to tramadol, started on Keppra. At present patient is at baseline and is going to be discharged by the primary team Impression Likely provoked seizures Plan -On ASA, recommend changing Lipitor to 40 mg PO q hs -MRI brain reported normal -MRA head- normal, MRA neck reported to show 50-69% stenosis in the right ICA -EEG reported normal and 24 hr EEG was also reported to be normal -LP-WBCs-4, protein 36 and Glucose 78, rest results pending -Vascular surgery consult as outpatient. -Continue Keppra 1000 mg PO BID -Patient counseled not to drive for 6 months -Seizure precautions, avoid climbing on ladders, or working at height, avoid working with sharp objects, avoid swimming alone, SUDEP risk discussed in detail -Fall precautions -Was seen by Dr. Matamoros initially, follow up with Dr. Matamoros/TIM May as outpatient in 4-6 weeks -Please call with questions if any -Thank you for allowing us to participate in patient's care and management I spent 30 minutes taking history, doing physical examination, reviewing medical records, coordinating care and counseling the patient and family.
[2017-09-09 16:40] LABS: Pathologist Review Reviewed
--- NOTE | 2017-09-12 16:14 | STRESSREP ---
Stress Test Report Addendum to stress test report on 09/04/2017. 11.7 mCi of technetium 99m sestamibi was injected at rest. Please see the rest of the dictation.
[2017-09-13 14:08] LABS: Cryptococcus Antigen CSF Negative (Negative); HSV 1 By PCR Negative (Negative)
[2017-09-15 07:58] LABS: HSV 2 By PCR Negative (Negative)
== END 2017-09-08 16:55 | disposition home or self-care (01) | DRG 101 ==
LOC: ED 21:24 → PCU 23:54 → ICU 09-06 10:38 → MS2 09-08 07:15 → ICU 09-08 07:17
PROVIDERS: Psychiatry & Neurology Neurology; Admitting Provider Family Medicine; Emergency Provider Emergency Medicine; Family Provider Internal Medicine; PCP Internal Medicine; Visit Provider Internal Medicine
DX: R56.9 Unspecified convulsions (principal); L40.50 Arthropathic psoriasis, unspecified; E66.9 Obesity, unspecified; E87.6 Hypokalemia; I10 Essential (primary) hypertension; Z68.31 Body mass index [BMI] 31.0-31.9, adult; M06.9 Rheumatoid arthritis, unspecified; R74.8 Abnormal levels of other serum enzymes; E78.5 Hyperlipidemia, unspecified
CPT/HCPCS: 36415; 62270; 70450; 70544; 70547; 70551; 71046; 71275; 73620; 77003; 78451; 80048; 80061; 80076; 82550; 82945; 82962; 83036; 83605; 83735; 84100; 84157; 84443; 84484; 85025; 85027; 85379; 85610; 85730; 87070; 87205; 87529; 87641; 87899; 88108; 88305; 88312; 88313; 89050; 89051; 93005; 93306; 95819; 95951; 97162; 97166; 99285; A9500; J7030; Q9967; A4216; J2405; J2785

== ENCOUNTER → 2017-09-18 10:16 | Outpatient (CLI) | payer OTHER, SELFPAY ==
--- NOTE | 2017-09-18 10:23 | RAD_ITS ---
STUDY: X-RAY - LUMBAR SPINE REASON FOR EXAM: Female, 62 years old. Back pain. TECHNIQUE: 5 view(s) of the lumbar spine were obtained including oblique views. COMPARISON: None FINDINGS: Normal lumbar lordosis. There is no substantial scoliosis. There is a normal alignment of the vertebrae. Proximally 10% loss of height of the superior endplate of the T12 and L1 vertebrae. Normal disc space heights. Marked degree of osteoarthritis involving the left hip joint. RAD/L/S Spine Min 4 Views IMPRESSION: Mild degree of the loss of height of the superior endplate of the T12 and L1 vertebrae. Marked degree of osteoarthritis of the left hip joint. Electronically Signed: Timoteo Otoole MD at 14:13 EST Tel [phone], Service support ,
== END ==
PROVIDERS: Family Provider Family Medicine; PCP Family Medicine; Visit Provider Family Medicine
DX: M54.5 Low back pain (principal)
CPT/HCPCS: 72110

== ENCOUNTER → 2017-12-12 09:25 | Outpatient (CLI) | payer OTHER, SELFPAY ==
[2017-12-12 10:26] LABS: Absolute Lymphocyte Count 1.87 X10^3/ul (0.83-4.51); Basophil# 0.01 X10^3/uL; Basophil% 0.1 % (0-1); Eosinophil# 0.06 X10^3/uL; Eosinophils% 0.7 % (0-5); Hematocrit 36.9 % (37-47); Hemoglobin 11.4 g/dl (12.0-15.0); Lymphocyte # 1.87 X10^3/ul (4.0); Lymphocyte % 21.6 % (19-41); Mean Corp Hgb Conc 30.9 g/gl (32-36); Mean Corpuscular Hgb 27.3 pg (27.0-32.0); Mean Corpuscular Volume 88.3 fL (81-99); Mean Platelet Vol. 9.7 fl (6.2-12.0); Monocyte# 0.73 X10^3/uL; Monocyte% 8.4 % (0-10); Neutrophil # 5.98 X10^3/uL (2.7-7.7); Neutrophil % 69.1 % (47-70); Platelet Count 386 K/mm3 (150-450); RBC Distribution Width CV 15.9 % (11.6-14.6); Red Blood Count 4.18 M/mm3 (4.2-5.4); White Blood Count 8.7 K/mm3 (4.4-11.0)
[2017-12-12 10:27] LABS: POSITIVE COUNT NO; POSITIVE DIFFERENTIAL NO; POSITIVE MORPHOLOGY NO
[2017-12-12 11:11] LABS: ALB/GLOB Ratio 0.6 RATIO (0.9-2.4); AST(SGOT) 14 U/L (15-37); Alanine Aminotransfer ALT/SGPT 23 U/L (13-56); Albumin, Serum 3.2 g/dL (3.2-5.0); Alkaline Phosphatase 117 U/L (45-117); Anion Gap 9 (5-15); BUN 33 mg/dL (7-18); BUN/Creat Ratio 41.8 RATIO (10-20); Calcium,Total 9.6 mg/dL (8.5-10.1); Chloride 103 mmol/L (98-107); Cholesterol 147 mg/dL (200); Creatinine, Serum 0.79 mg/dL (0.55-1.02); EST Glomerular Filtration Rate 79 mL/min (>60); Est Glom Filt Rate - Afr Amer 95 mL/min (>60); Globulin 5.1 g/dL (2.2-4.2); Glucose 142 mg/dL (74-106); High Density Lipoprotein 47 mg/dL; Potassium 3.7 mmol/L (3.5-5.1); Protein, Total 8.3 g/dL (6.4-8.2); Sodium Level 138 mmol/L (136-145); Thyroid Stim Hormone (TSH) 0.47 uIU/mL (0.358-3.74); Triglycerides 197 mg/dL; Very Low Density Lipoprotein 39 mg/dL (5-40)
[2017-12-14 09:26] LABS: KEPPRA (LEVETIRACETAM) 52.1 ug/mL (10.0-40.0)
== END ==
PROVIDERS: Family Provider Family Medicine; PCP Family Medicine; Visit Provider Family Medicine
DX: I10 Essential (primary) hypertension (principal); R56.9 Unspecified convulsions; R53.83 Other fatigue
CPT/HCPCS: 36415; 80053; 80061; 80177; 84443; 85025

== ENCOUNTER 2018-03-11 18:00 | Outpatient (RCR) | payer OTHER, SELFPAY ==
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
--- NOTE | 2017-11-19 17:28 | HP.PTREVAL ---
Rolo Elizabeth, It has been my pleasure to treat MILIND DAWSON over the last 25 visits for Generalized Weakness. Please see the progress note below for an update on the physical therapy plan of care! Subjective: Pt reports that she is now on meds and it seems to be really working and having signifivantly less pain. Pt is getting herslef dressed. She is doing more things at home. no longer has to help pt with transfers. She would like to have a goal of using a cane. Objective/Function: LE MMT: hip flex B 2-/5, Hip abd B 2-/5, hip abd B 4-/5, Knee ext L 3+/5 and R 3+/5, B knee flex 3-/5,. Pt able to transfers sit to stand with UE with less difficulty than during initial eval and less time to actually do the transfer. Pt able to walk approx 100 feet with front wheeled walker with SBA with increase stride then previously seen. Pt able to walk BW with the walker a little as well but not a smooth motion. Plan Plan: 2X/ week for 6 weeks for continued progress in AT. Work towards possibly walking with [facility] in 6 weeks to see if able to do so. Possibly try land therapy in 6 weeks for trnasfer to I AT [facility], [place]. Goals Goal 1:: I HEP Goal Time Frame: 4-6 Weeks Goal 2:: Be able to walk 150 feet with least restricitive device with increase stride length and CGA Goal Time Frame: 4-6 Weeks Goal Progress: Progressing Goal 3:: Increase LE strength by 1/2 muscle grade (LE MMT: hip flex B 2-/5, Hip abd B 2-/5 (approx 3 inch rise into clam shell), Knee L 2-/5 and R 2/5, B knee flex 3-/5, Bridge...slight elevation in hips) Goal Time Frame: 4-6 Weeks Goal Progress: Progressing Goal 4:: Decrease back pain to 3/10 by DC Goal Time Frame: 4-6 Weeks Goal Progress: Goal Met Anticipated Interventions Patient/Client Instruction: Educate patient on: Plan of Care For the Purpose of:: To decrease pain, To increase ROM, To improve nutrient delivery to tissue, To improve muscle performance and motor function, To improve ability to perform ADL's, To increase tolerance to activity/condition/position, To decrease level of supervision to perform tasks, To improve ability of physical actions for home/community/work/leisure, To improve gait and locomotor functions, To improve health of tissue, To decrease soft tissue restriction, To increase flexibility/ROM, To improve endurance, To improve balance, To improve safety with gait Therapeutic Exercise to Include: Strength training, Endurance training, Balance training, Postural training, Flexibilty training, Gait and locomotor training, Neuromotor development, In an aquatic setting, Active ROM, Dynamic Lumbar Stabilization, Scapular Strength/Stabilization For the Purpose of:: To decrease pain, To decrease swelling/inflammation, To increase ROM, To improve nutrient delivery to tissue, To improve muscle performance and motor function, To improve ability to perform ADL's, To increase tolerance to activity/condition/position, To improve performance and independence with ADL's, To decrease level of supervision to perform tasks, To improve ability of physical actions for home/community/work/leisure, To improve gait and locomotor functions, To improve health of tissue, To improve safety with gait Functional Training to Include: Gait training For the Purpose of:: To improve gait and locomotor functions, To improve balance, To improve safety with gait Please do not hesitate to contact me at [phone] by phone or if you have questions or concerns regarding this new plan of care! Sincerely, Leti Stallworth
--- NOTE | 2018-01-27 17:44 | HP.PTREVAL_ITS ---
Rolo Elizabeth, It has been my pleasure to treat MILIND DAWSON over the last 38 visits for Generalized Weakness. Please see the progress note below for an update on the physical therapy plan of care! Subjective: Pt is up walking around with her walker at home about 30% of the day. She is doing what she can around the house. SHe is being weaned off the anti-seizure med and hoping that helps her sleepiness. Both daughter and have noticed a difference in her ability aroun. reports that pt is much more independent at home. Objective/Function: LE MMT: hip flex B 2-/5, Hip abd B 3-/5, Kneeext L 3-/5 and R 3-/5, B knee flex 4-/5,. Gait: walks with decreased stride (but improved stride for her) walks with decreased stride on the L compared to the R. Sit to stand: more flexion at the hips and more of a smooth transition Plan Plan: 1X/ week in the water and 1X/ week on land to work on gait with equal and increasing stride and balance activities in // bars....pt will need assistance as well as LE strengthening with HEP if able Goals Goal 1:: I HEP Goal Time Frame: 4-6 Weeks Goal 2:: Be able to walk 150 feet with least restricitive device with increase stride length and CGA Goal Time Frame: 4-6 Weeks Goal Progress: Goal Met Goal 3:: Increase LE strength by 1/2 muscle grade (LE MMT: hip flex B 2-/5, Hip abd B 2-/5 (approx 3 inch rise into clam shell), Knee L 2-/5 and R 2/5, B knee flex 3-/5, Bridge...slight elevation in hips) Goal Time Frame: 4-6 Weeks Goal Progress: Progressing Goal 4:: Decrease back pain to 3/10 by DC Goal Time Frame: 4-6 Weeks Goal Progress: Goal Met Goal 5:: Be able to walk with equal stride with least restrictive device X 50 feet with CGA Goal Time Frame: 4-6 Weeks Anticipated Interventions Patient/Client Instruction: Educate patient on: Plan of Care For the Purpose of:: To decrease pain, To increase ROM, To improve nutrient delivery to tissue, To improve muscle performance and motor function, To improve ability to perform ADL's, To increase tolerance to activity/condition/ position, To decrease level of supervision to perform tasks, To improve ability of physical actions for home/community/work/leisure, To improve gait and locomotor functions, To improve health of tissue, To decrease soft tissue restriction, To increase flexibility/ROM, To improve endurance, To improve balance, To improve safety with gait Therapeutic Exercise to Include: Strength training, Endurance training, Balance training, Postural training, Flexibilty training, Gait and locomotor training, Neuromotor development, In an aquatic setting, Active ROM, Dynamic Lumbar Stabilization, Scapular Strength/Stabilization For the Purpose of:: To decrease pain, To decrease swelling/inflammation, To increase ROM, To improve nutrient delivery to tissue, To improve muscle performance and motor function, To improve ability to perform ADL's, To increase tolerance to activity/condition/position, To improve performance and independence with ADL's, To decrease level of supervision to perform tasks, To improve ability of physical actions for home/community/work/leisure, To improve gait and locomotor functions, To improve health of tissue, To improve safety with gait Functional Training to Include: Gait training For the Purpose of:: To improve gait and locomotor functions, To improve balance , To improve safety with gait Please do not hesitate to contact me at [phone] by phone or Fax: if you have questions or concerns regarding this new plan of care! Sincerely, Leti Stallworth
--- NOTE | 2018-03-11 19:00 | HP.PTDCSUM_ITS ---
HP - PT D/C Summary It has been my pleasure to treat MILIND DAWSON under orders from Rolo Elizabeth, for the diagnosis of Generalized Weakness for a total of 48 visit(s). Discharge Date: 03/11/18 Please see the following information for a summary of their discharge status. - Subjective Subjective: Pt walked into dept with [facility] and uses it at home most days and uses the walker when has grandkids running around or when having a bad day. Pt will be doing the same stretching at home and has put up a railing down the hallway that she can do some exercises along (such as kitchen sink exercises and walking sw and fw). - Pain Back pain Pain Intensity (Out of 10): 2 Generalized pain Pain Intensity (Out of 10): 8 BLAT knees Pain Intensity (Out of 10): 9 R elbow Pain Intensity (Out of 10): 7 - Overall Improvement % Improvement: 90 - Objective Objective/Function: see goals that have been met. LE MMT: hip flex 3-/5 ( 4-/ 5 in avaiable range), knee ext and knee flex B 4/5, hip abd B 4-/5 - Goals Goal 1:: I HEP Goal Progress: Goal Met Goal 2:: Be able to walk 150 feet with least restricitive device with increase stride length and CGA Goal Progress: Goal Met Goal 3:: Increase LE strength by 1/2 muscle grade (LE MMT: hip flex B 2-/5, Hip abd B 2-/5 (approx 3 inch rise into clam shell), Knee L 2-/5 and R 2/5, B knee flex 3-/5, Bridge...slight elevation in hips) Goal Progress: Progressing Goal 4:: Decrease back pain to 3/10 by DC Goal Progress: Goal Met Goal 5:: Be able to walk with equal stride with least restrictive device X 50 feet with CGA Goal Progress: Progressing - Plan Plan: DC PT to HEP. Return to Dr on Mar 20 and then at the end of Mar she sees the Neurologist. - D/C Information Discharge Comments: DC PT If there are questions or concerns regarding this patient's physical therapy, please feel free to call me at [phone]. Thank you for the referral of this patient. Sincerely, Leti Stallworth
== END 2018-03-11 19:00 | disposition home or self-care (01) ==
LOC: PT 18:00
PROVIDERS: Family Provider Family Medicine; PCP Family Medicine; Visit Provider Family Medicine
DX: R53.1 Weakness (principal)
CPT/HCPCS: 97110; 97113; 97162; 97530

== ENCOUNTER → 2018-03-20 08:24 | Outpatient (CLI) | payer OTHER, SELFPAY ==
[2018-03-20 10:02] LABS: Anion Gap 10 (5-15); BUN 28 mg/dL (7-18); BUN/Creat Ratio 33.7 RATIO (10-20); Calcium,Total 9.7 mg/dL (8.5-10.1); Chloride 104 mmol/L (98-107); Creatinine, Serum 0.83 mg/dL (0.55-1.02); EST Glomerular Filtration Rate 74 mL/min (>60); Est Glom Filt Rate - Afr Amer 90 mL/min (>60); Glucose 102 mg/dL (74-106); Potassium 4.1 mmol/L (3.5-5.1); Sodium Level 140 mmol/L (136-145)
== END ==
PROVIDERS: Family Provider Family Medicine; PCP Family Medicine; Visit Provider Family Medicine
DX: I10 Essential (primary) hypertension (principal)
CPT/HCPCS: 36415; 80048

== ENCOUNTER → 2018-09-21 09:10 | Outpatient (CLI) | payer OTHER, SELFPAY ==
[2017-09-05 22:31] VITALS: BMI 31.1
[2018-09-21 11:10] LABS: ALB/GLOB Ratio 0.8 RATIO (0.9-2.4); AST(SGOT) 14 U/L (15-37); Alanine Aminotransfer ALT/SGPT 25 U/L (13-56); Albumin, Serum 3.8 g/dL (3.2-5.0); Alkaline Phosphatase 107 U/L (45-117); Anion Gap 13 (5-15); BUN 30 mg/dL (7-18); BUN/Creat Ratio 34.4 RATIO (10-20); Calcium,Total 9.8 mg/dL (8.5-10.1); Chloride 107 mmol/L (98-107); Cholesterol 172 mg/dL (200); Creatinine, Serum 0.87 mg/dL (0.55-1.02); EST Glomerular Filtration Rate 70 mL/min (>60); Est Glom Filt Rate - Afr Amer 85 mL/min (>60); Globulin 4.5 g/dL (2.2-4.2); Glucose 132 mg/dL (74-106); High Density Lipoprotein 42 mg/dL; Potassium 4.2 mmol/L (3.5-5.1); Protein, Total 8.3 g/dL (6.4-8.2); Sodium Level 143 mmol/L (136-145); Triglycerides 274 mg/dL; Very Low Density Lipoprotein 55 mg/dL (5-40)
== END ==
PROVIDERS: Family Provider Family Medicine; PCP Family Medicine; Visit Provider Family Medicine
DX: E78.5 Hyperlipidemia, unspecified (principal)
CPT/HCPCS: 36415; 80053; 80061

== ENCOUNTER → 2019-03-22 09:29 | Outpatient (CLI) | payer OTHER, SELFPAY ==
[2017-09-05 22:31] VITALS: BMI 31.1
[2019-03-22 12:50] LABS: ALB/GLOB Ratio 0.5 RATIO (0.9-2.4); AST(SGOT) 14 U/L (15-37); Alanine Aminotransfer ALT/SGPT 17 U/L (13-56); Albumin, Serum 3.1 g/dL (3.2-5.0); Alkaline Phosphatase 77 U/L (45-117); Anion Gap 7 (5-15); BUN 37 mg/dL (7-18); BUN/Creat Ratio 39.4 RATIO (10-20); Chloride 102 mmol/L (98-107); Cholesterol 152 mg/dL (200); Creatinine, Serum 0.94 mg/dL (0.55-1.02); EST Glomerular Filtration Rate 64 mL/min (>60); Est Glom Filt Rate - Afr Amer 78 mL/min (>60); Glucose 170 mg/dL (74-106); High Density Lipoprotein 49 mg/dL; Potassium 4.4 mmol/L (3.5-5.1); Protein, Total 9.1 g/dL (6.4-8.2); Sodium Level 134 mmol/L (136-145); Triglycerides 152 mg/dL; Very Low Density Lipoprotein 30 mg/dL (5-40)
== END ==
PROVIDERS: Family Provider Family Medicine; PCP Family Medicine; Visit Provider Family Medicine
DX: Z13.1 Encounter for screening for diabetes mellitus (principal)
CPT/HCPCS: 36415; 80053; 80061

== ENCOUNTER → 2019-03-29 | Outpatient (CLI) | payer OTHER, SELFPAY ==
--- NOTE | 2019-03-29 10:56 | CDU_ITS ---
Reason For Study: Carotid stenosis Rt. Velocities/BP Lt. Velocities/BP Prox CCA 119.2/27 cm/sec. Prox CCA 121.3/24.8 cm/sec. Mid CCA 117/20.4 cm/sec. Mid CCA 90/20.6 cm/sec. Dist CCA 90/20 cm/sec. Dist CCA 92.5/23.7 cm/sec. Prox ICA 125.7/31.4 cm/sec. Prox ICA 86.4/29.8 cm/sec. Mid ICA 121.1/38.9 cm/sec. Mid ICA 113.8/42.6 cm/sec. Dist ICA 128.4/38.9 cm/sec. Dist ICA 104.7/27.9 cm/sec. Rt. ICA/CCA = 1.1. Lt. ICA/CCA = 1.3. Prox ECA 200.2/18.9 cm/sec. Prox ECA 119.3/9.7 cm/sec. Rt. Vert. 66.3/16.8 cm/sec. Lt. Vert. 75.4/7.9 cm/sec. Right Extracranial There is intimal thickening but no significant atherosclerotic plaque noted in the right common carotid artery. There is heterogeneous, irregular atherosclerotic plaque noted in the right internal carotid artery. There is heterogeneous, irregular atherosclerotic plaque noted in the right external carotid artery. Antegrade flow is noted in the right vertebral artery. Left Extracranial There is intimal thickening but no significant atherosclerotic plaque noted in the left common carotid artery. There is heterogeneous, irregular atherosclerotic plaque noted in the left internal carotid artery. There is heterogeneous, irregular atherosclerotic plaque noted in the left external carotid artery. Antegrade flow is noted in the left vertebral artery. There is heterogeneous, irregular atherosclerotic plaque noted in the left bulb. Procedure Carotid Duplex [id number]. Exam performed in department. Interpretation Summary Mild (<50%) stenosis right extracranial internal carotid. Mild (<50%) stenosis left extracranial internal carotid. Flow within the vertebral arteries is antegrade bilaterally. Heterogeneous, irregular atherosclerotic plaque is noted in the left carotid bulb, which does not appear to be hemodynamically significant. Ordering Physician: Rolo Elizabeth Referring Physician: Rolo Elizabeth Performed By: Selene Barrientos RVT
== END | disposition home or self-care (01) ==
LOC: CVS 10:55
PROVIDERS: Family Provider Family Medicine; PCP Family Medicine; Referring Provider Family Medicine; Visit Provider Family Medicine
DX: I65.29 Occlusion and stenosis of unspecified carotid artery (principal)
CPT/HCPCS: 93880

== ENCOUNTER → 2019-06-21 | Outpatient (CLI) | payer OTHER, SELFPAY ==
[2017-09-05 22:31] VITALS: BMI 31.1
[2019-06-21 13:05] LABS: Anion Gap 7 (5-15); BUN 25 mg/dL (7-18); BUN/Creat Ratio 34.8 RATIO (10-20); Calcium,Total 9.8 mg/dL (8.5-10.1); Chloride 107 mmol/L (98-107); Cholesterol 162 mg/dL (200); Creatinine, Serum 0.72 mg/dL (0.55-1.02); EST Glomerular Filtration Rate 88 mL/min (>60); Est Glom Filt Rate - Afr Amer 106 mL/min (>60); Glucose 128 mg/dL (74-106); High Density Lipoprotein 52 mg/dL; Sodium Level 139 mmol/L (136-145); Triglycerides 270 mg/dL; Very Low Density Lipoprotein 54 mg/dL (5-40)
[2019-06-21 13:15] LABS: Hemoglobin A1c 6.7 % (4.2-6.3)
== END | disposition home or self-care (01) ==
LOC: MFPLAB 10:59
PROVIDERS: Family Provider Family Medicine; PCP Family Medicine; Referring Provider Family Medicine; Visit Provider Family Medicine
DX: E78.5 Hyperlipidemia, unspecified (principal); R73.9 Hyperglycemia, unspecified
CPT/HCPCS: 36415; 80048; 80061; 83036

== ENCOUNTER 2019-07-20 16:30 | Outpatient (RCR) | payer OTHER, SELFPAY ==
--- NOTE | 2019-04-01 19:20 | HP.PTEVAL ---
Patient's Visit Information MILIND DAWSON is a 64 year old F referred to Physical Therapy by Rolo Elizabeth MD with a diagnosis of Generalize weakness adn unsteady gait. Date of Evaluation: 04/01/19 Physical Therapist: Will Taylor, SOSA, OCS, CSCS - Visit Plan Frequency: 2x /Week Duration: 3 Months Plan: 2x/week for 4 weeks in water then I or land ex. Please focus on hip ROM, knee ROM and LE /UE strength. Pt will likely need B hip mobs and stretching adn PROM in therapy after water if does not wish to continue I. Also gait training and strength ex. Pool paerwork filled out. - Subjective Findings: patient has had bad psoriatic arthritis for years. Treated in early 2018 with medications and stress test meds that gave her seizures adn has been unable to walk well since then. Slowy going down hill with mobility. Needed hips replaced before this incident. Does nothing at home, sits on couch. can dress self adn bathe and go to bathroom but unable to do other active hobbie that she enjoys with hands due to pain. Not on any regualr ex. Not employed, cannot dirve since seizure incident. 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 Sleeps interrupted. Pain is in gorin L >R to 5/10 and LB, shoulders elbows and hands. - Pain B hips Pain Intensity (Out of 10): 8 Pain Intensity Range: 4, 10 - Objective Walks with wh walker short R step length, slow, painful. Trasnfers with UE needed in chair and has to lean back in sitting due to lack of hip flexion L >R. L knee stays bent 10 degrees in stance adn gait. Bed transfers slow but I. UE AROM to 110 L shoulder elevation and 130 R. shoulder strength 3 and painful B. Forward head and anterior scapular posture. elbows and wrist AROM WFL and without pain today 4-/5 adn rotations at shoulders 4- without pain. Sensation UE WNL to gross light touch. LE AROM : hip flexion L 30 and R 40 firm endfeel and no further PROM, hip extension barely to neutral B. Abduction 8 degrees L and 10 R with pain. rotations are max limited and hard to measure due to stiffness overall and painful. + attempted POORNIMA and FADDIR. Knee AROM R WFL adn L -10 ext to 100 flexion. Ankles WFL and strength 4/5, L ankle collapses in in WB and toe points out. knee strength 4/5 adn hip strength flexion 3 painful, abd 3 painful, addd 3+ and painful, ext 2 painful. OVERALL PRESENTATION IS b SEVERE HIP OA adn L knee OA limiting mobility and function. Unable to reach down to tie shoes > 30 degrees due to hip ROM. Able to ambulate with 2 inch R step length and 5 inch L step length with VC adn walker, 1 inch steps without walker but able to stand and balance with perturbations. Appears scared adn painful to move hips. Overall functional walking is not more than 150 feet adn slow. Unable to place R foot up to next step, able to place left with circumduction but needs to pull with UE. - Goals Goal 1:: I approp water or land based ex to maximize hip ROM and minimzie pain Goal Time Frame: 6-8 Weeks Goal 2:: Pain in hips and UE 3/10 at worst adn manageable at 50% better. Goal Time Frame: 6-8 Weeks Goal 3:: sit in chair comfortably straight up and down without needing to lean BW Goal Time Frame: 6-8 Weeks Goal 4:: Steps with two rails reciprocally x 6 Goal Time Frame: 6-8 Weeks Goal 5:: Walk 30 feet with 6 inch steps withotu walker SBA withotu increased pain. Goal Time Frame: 6-8 Weeks - Rehabilitation Potential Physical Therapy Diagnosis: Generalized weakness and poor mobility due to severe hip OA Rehabilitation Potential: Questionable - Anticipated Interventions Patient/Client Instruction: Educate patient on: Condition, Plan of Care For the Purpose of:: To decrease pain, To increase ROM, To increase tolerance to activity/condition/position Therapeutic Exercise to Include: Strength training, Postural training, Flexibilty training, Gait and locomotor training, In an aquatic setting, Passive ROM, Active ROM For the Purpose of:: To decrease pain, To increase ROM, To improve muscle performance and motor function, To increase tolerance to activity/condition/position, To improve ability of physical actions for home/community/work/leisure Manual Therapy Techniques to Include: Mobilization Comment: hip For the Purpose of:: To increase ROM Thank you for the opportunity to evaluate your patient. For Medicare and Medicare HMO plans, please review the plan of care and approve it. It will need to be FAXED BACK to us at [phone] for Medicare purposes. For Medicare only, by signing this I certify the plan of care. Please let me know if there are questions or concerns regarding this plan of care. Physician Signature: Date:
--- NOTE | 2019-05-13 19:09 | HP.PTREVAL ---
Rolo Elizabeth MD, It has been my pleasure to treat MILIND DAWSON over the last 9 visits for Generalize weakness adn unsteady gait. Please see the progress note below for an update on the physical therapy plan of care! Subjective: L knee hurts today 02/17. Hips are OK. Pool was helpful. Pain is less. Gtting around better. says not as cranky. More silent adn less pain in trasnfers at home verbalizing. Wants to continue more in the pool. says she can climb into bed without so much pain. Rolls in bed with less noise. Still needs help on the steps, Getting up steps. Objective/Function: Sitting posture symmetrical and much better today, not requiring back of chair to hold her up. L knee painful and -8 degrees of ext, hips very stiff to 40degrees felxion in sitting. R foot inverted adn collapsed arch. Still very stiff hips. Patient is not good at verbalizing her improvements but feels better overall. Still requires walker to ambulate and takes short R step length. Can walk 8-10 steps with Min A and slow and fearful with only about 2 inch step length B....L knees stays flexed. Trasnfer out of chair with UE I. Steps(3) require 2 rails and much pulling using L leg only nad having a very hard time getting L foot up the step due to limitations in motion in hips and knee. Unable to get R foot up to new step. PT AND OVERALL VERY HAPPY WITH PROGRESS BUT STILL HAS A WAY TO GO. LOOKS MORE COMFORTABLE ON TRASNFERS AND IMPROVED ALTHOUGH STILL AT GREAT DEFICITS WITH STEPS ADN GAIT WITHOUT WALKER. WANTS TO WALK WITHOUT WALKER BUT CANNOT SINCE HER SEIZURE. Plan Plan: continue in water 2x/week for 4 weeks...emphasize ROM at hips and knees, large steps and balance withotu hands on rail as able for confidence. Gait. LE strength. Attempt to progress to I. Likely will need land therapy for gait if can improve in the water. Goals appropriate adn fair prognosis Goals Goal 1:: I approp water or land based ex to maximize hip ROM and minimzie pain Goal Time Frame: 6-8 Weeks Goal Progress: Progressing Goal 2:: Pain in hips and UE 3/10 at worst adn manageable at 50% better. Goal Time Frame: 6-8 Weeks Goal Progress: Goal Met % not pain. Goal 3:: sit in chair comfortably straight up and down without needing to lean BW Goal Time Frame: 6-8 Weeks Goal Progress: Goal Met Goal 4:: Steps with two rails reciprocally x 6 Goal Time Frame: 6-8 Weeks Goal Progress: L only and 3 steps Goal 5:: Walk 30 feet with 6 inch steps withotu walker SBA withotu increased pain. Goal Time Frame: 6-8 Weeks Goal Progress: Progressing,a pprop. Anticipated Interventions Patient/Client Instruction: Educate patient on: Condition, Plan of Care For the Purpose of:: To decrease pain, To increase ROM, To increase tolerance to activity/condition/position Therapeutic Exercise to Include: Strength training, Postural training, Flexibilty training, Gait and locomotor training, In an aquatic setting, Passive ROM, Active ROM For the Purpose of:: To decrease pain, To increase ROM, To improve muscle performance and motor function, To increase tolerance to activity/condition/position, To improve ability of physical actions for home/community/work/leisure Manual Therapy Techniques to Include: Mobilization Comment: hip For the Purpose of:: To increase ROM Please do not hesitate to contact me at [phone] by phone or if you have questions or concerns regarding this new plan of care! Sincerely, Will Taylor, DPT, OCS, CSCS
--- NOTE | 2019-06-15 19:14 | HP.PTREVAL ---
Rolo Elizabeth MD, It has been my pleasure to treat MILIND DAWSON over the last 17 visits for Generalize weakness adn unsteady gait. Please see the progress note below for an update on the physical therapy plan of care! Subjective: Walking faster and feeling better with walking. Slowly getting stronger. Pool ex is good except for the step ups. They wear her out adn cause knee pain. says it is getting easier getting in adn out adn out to the car. and agreeable that progress has been made adn want to cotninue in water one more month before progressing to land. Objective/Function: Walks back to 250 foot table with wh walker mod I with quicker more functional pattern today and about 4 inch step length with wh walker. Can ambulate without walker 30 feet with CGA with short steps and hesitant but no LOB or fear noted. Stands from chair in one attempt utilizing hands easily 2x today. Hip ROM still seem to be limiting factor as she is unable to march with greaer than 30 degrees hip flexion on either side. OVERAL MUCH IMPROVED WITH SUBJECTIVE, WALKING SPEED AND CONFIDENCE AND SAFETY ADN APPROPRIATE TO COTNINUE WATER THERAPY WITH FAIR PROGNOSIS. EDUCATE PATIENT AND HUBBY THAT LIKELY NEXT STEP AFTER THIS MONTH IS TO LAND BASED GAIT TRAINING AND HIP ROM IF TOLERATED. Plan Plan: 2X/WEEK FOR 4 MORE WEEKS IN WATER... Please work on LE and UE strength, hip ROM into flexion, step length with gait and pregait balance activities in the water. Goals Goal 1:: I approp water or land based ex to maximize hip ROM and minimzie pain Goal Time Frame: 6-8 Weeks Goal Progress: Progressing, approp. Goal 2:: Pain in hips and UE 3/10 at worst adn manageable at 50% better. Goal Time Frame: 6-8 Weeks Goal Progress: % met, pain not. Goal 3:: sit in chair comfortably straight up and down without needing to lean BW Goal Time Frame: 6-8 Weeks Goal Progress: Goal Met Goal 4:: Steps with two rails reciprocally x 6 Goal Time Frame: 6-8 Weeks Goal Progress: not tested. Goal 5:: Walk 30 feet with 6 inch steps withotu walker SBA withotu increased pain. Goal Time Frame: 6-8 Weeks Goal Progress: Goal Met Goal 6:: Walk 100 feet without AD with cga with each foot passing the last confidently adn without pain. Goal Time Frame: 4-6 Weeks Goal Progress: NEW GOAL Anticipated Interventions Patient/Client Instruction: Educate patient on: Condition, Plan of Care For the Purpose of:: To decrease pain, To increase ROM, To increase tolerance to activity/condition/position Therapeutic Exercise to Include: Strength training, Postural training, Flexibilty training, Gait and locomotor training, In an aquatic setting, Passive ROM, Active ROM For the Purpose of:: To decrease pain, To increase ROM, To improve muscle performance and motor function, To increase tolerance to activity/condition/position, To improve ability of physical actions for home/community/work/leisure Manual Therapy Techniques to Include: Mobilization Comment: hip For the Purpose of:: To increase ROM Please do not hesitate to contact me at [phone] by phone or if you have questions or concerns regarding this new plan of care! Sincerely, Will Taylor, DPT, OCS, CSCS
--- NOTE | 2019-07-20 17:46 | HP.PTREVAL_ITS ---
Rolo Elizabeth MD, It has been my pleasure to treat MILIND DAWSON over the last 25 visits for Generalize weakness adn unsteady gait. Please see the progress note below for an update on the physical therapy plan of care! Subjective: Walking better, steps still chalenging. Pain is still 7/10 L knee and 5/10 R knee up and on it. Sleeping in spurts and exercises in there sometimes make back worse. Objective/Function: Walks into therapy with wha walker with near symmetrical step length of about 8 inches. Decent speed much improved. Without AD she does not have the confidence to take any R step length adn about a 4 inch L step but needs only SBA. Stand with fair balance. L LE remains flexed at knee. Transfers with UE due to limitations in knee and hip ROM that do not allow her to trasnfer with just her LE but only needs one attempt today. Walks with [facility] in L hesitant at first but mod I for short distance and slightly less R step length vs L. Still a good speed compared to day one. wALKED 80 FEET TOTAL TODAY WITH [facility]. Has functional ROM in UE and 3+/5 strength. Hip strength is about 3 in available ROM and knees are 3+. OVERALLMUCH IMPROVED GAIT AND FUNCTION AND PRESENT TODAY AND AGREEABLE. SHE DOES NOT SEEM TO WISH TO CONTINUE PT SHE WISHES TO CALL IT QUITS I TRY TO ENCOURAGE HER TO KEEP GOING WITH PLAN TO DAY AND SHE WILL THINK ABOUT IT AT HOME AND CALL. I RELAYED MY WORRIES ABOUT GOING BACKWARDS WITH FUNCTION IF SHE DOES NOT CONTINUE GROUP HOME IN THE POOL OR LEARN LAND BASED EX. Plan Plan: 2X/WEEK FOR 4 WEEKS FOR LAND BASED GAIT TRAINING WITH [facility] FOR DISTANCE AND STEPS AND ALSO TRY TO GET ON SOME CHAIR TO SINK TO BED EXERCISE FOR STRENGTHENING OF POSTURE AND LE TOWARD I. PT IS HESITANT TO AGREE TO THIS TODAY BUT WILL GO HOME AND THINK ABOUT IT AND CALL BACK IF WISHES TO COTNINUE. FAIR PROGNOSIS. Encouraged pt regarding pain as this is her limiting factor and the degeneration in her hips and knees may limit her ability with land based ex but we need to try it for her overall health. Goals Goal 1:: I approp water or land based ex to maximize hip ROM and minimzie pain Goal Time Frame: 6-8 Weeks Goal Progress: Progressing, approp. Goal 2:: Pain in hips and UE 3/10 at worst adn manageable at 50% better. Goal Time Frame: 6-8 Weeks Goal Progress: Not Progressing Goal 3:: sit in chair comfortably straight up and down without needing to lean BW Goal Time Frame: 6-8 Weeks Goal Progress: Goal Met Goal 4:: Steps with two rails reciprocally x 6 Goal Time Frame: 6-8 Weeks Goal Progress: not tested. Goal 5:: Walk 30 feet with 6 inch steps withotu walker SBA withotu increased pain. Goal Time Frame: 6-8 Weeks Goal Progress: Goal Met Goal 6:: Walk 100 feet without AD with cga with each foot passing the last confidently adn without pain. Goal Time Frame: 4-6 Weeks Goal Progress: Progressing Anticipated Interventions Patient/Client Instruction: Educate patient on: Condition, Plan of Care For the Purpose of:: To decrease pain, To increase ROM, To increase tolerance to activity/condition/position Therapeutic Exercise to Include: Strength training, Postural training, Flexibilty training, Gait and locomotor training, In an aquatic setting, Passive ROM, Active ROM For the Purpose of:: To decrease pain, To increase ROM, To improve muscle performance and motor function, To increase tolerance to activity/condition/position, To improve ability of physical actions for home/community/work/leisure Manual Therapy Techniques to Include: Mobilization Comment: hip For the Purpose of:: To increase ROM Please do not hesitate to contact me at [phone] by phone or if you have questions or concerns regarding this new plan of care! Sincerely, Will Taylor, DPT, OCS, CSCS
--- NOTE | 2019-09-10 14:41 | HP.PTDCNRP_ITS ---
HP - Discharge Summary (1) - Patient Information MILIND DAWSON was seen in my office for initial evaluation on 04/01/19. The following Plan of Care was established for this patient: Initial Frequency: 2x /Week Initial Duration: 3 Months - Anticipated Interventions Patient/Client Instruction: Educate patient on: Condition, Plan of Care For the Purpose of:: To decrease pain, To increase ROM, To increase tolerance to activity/condition/position Therapeutic Exercise to Include: Strength training, Postural training, Flexibilty training, Gait and locomotor training, In an aquatic setting, Passive ROM, Active ROM For the Purpose of:: To decrease pain, To increase ROM, To improve muscle performance and motor function, To increase tolerance to activity/condition/p osition, To improve ability of physical actions for home/community/work/leisure Manual Therapy Techniques to Include: Mobilization Comment: hip For the Purpose of:: To increase ROM This patient was last seen in our office 07/20/19. Pertinent comments regarding their Physical therapy will appear below: pT SEEN 25 VISITS AND WAS MAKING SLOW PROGRESS. She was rechecked at last visit and doctor office updated. she was hesitant to agree to recommended continued therapy. At this point she has neglected to schedule or attend adn I will discontinue her as it has been over 6 weeks. At this point I will be discontinuing this patient from physical therapy. I would be happy to see this patient again in the future if found appropriate by the physician. Thank you! Will Taylor, DPT, OCS, CSCS
== END 2019-07-20 19:00 | disposition home or self-care (01) ==
LOC: PT 16:30
PROVIDERS: Family Provider Family Medicine; PCP Family Medicine; Referring Provider Family Medicine; Visit Provider Family Medicine
DX: R53.1 Weakness (principal); R26.81 Unsteadiness on feet
CPT/HCPCS: 97113; 97163; 97164; 97530

== ENCOUNTER → 2020-03-21 09:51 | Outpatient (CLI) | payer OTHER, SELFPAY ==
[2020-03-21 08:20] VITALS: BMI 31.1
[2020-03-21 12:24] LABS: Absolute Lymphocyte Count 1.26 X10^3/uL (0.83-4.51); Basophil# 0.02 X10^3/uL; Basophil% 0.2 % (0-1); Eosinophil# 0.02 X10^3/uL; Eosinophils% 0.2 % (0-5); Hematocrit 35.2 % (37-47); Hemoglobin 10.5 g/dL (12.0-15.0); Lymphocyte # 1.26 X10^3/ul (4.0); Lymphocyte % 11.7 % (19-41); Mean Corp Hgb Conc 29.8 g/dL (32-36); Mean Corpuscular Hgb 25.2 pg (27.0-32.0); Mean Corpuscular Volume 84.6 fL (81-99); Mean Platelet Vol. 9.7 fl (6.2-12.0); Monocyte# 0.51 X10^3/uL; Monocyte% 4.7 % (0-10); NRBC Flagged by Analyzer 0 % (0-5); Neutrophil # 8.95 X10^3/uL (2.7-7.7); Neutrophil % 82.8 % (47-70); Platelet Count 498 K/mm3 (150-450); RBC Distribution Width CV 15.4 % (11.6-14.6); Red Blood Count 4.16 M/mm3 (4.2-5.4); White Blood Count 10.8 K/mm3 (4.4-11.0)
[2020-03-21 12:33] LABS: Erythrocyte Sedimentation Rate 105 mm/hr (0-30)
[2020-03-21 12:57] LABS: ALB/GLOB Ratio 0.6 RATIO (0.9-2.4); AST(SGOT) 13 U/L (15-37); Alanine Aminotransfer ALT/SGPT 17 U/L (13-56); Albumin, Serum 3.2 g/dL (3.2-5.0); Alkaline Phosphatase 80 U/L (45-117); Anion Gap 9 (5-15); BUN 23 mg/dL (7-18); BUN/Creat Ratio 31.2 RATIO (10-20); Calcium,Total 9.5 mg/dL (8.5-10.1); Chloride 103 mmol/L (98-107); Cholesterol 175 mg/dL (200); Creatinine, Serum 0.74 mg/dL (0.55-1.02); EST Glomerular Filtration Rate 85 mL/min (>60); Est Glom Filt Rate - Afr Amer 103 mL/min (>60); Globulin 5.8 g/dL (2.2-4.2); Glucose 144 mg/dL (74-106); High Density Lipoprotein 53 mg/dL; Potassium 4.3 mmol/L (3.5-5.1); Rheumatoid Factor < 10.0 IU/mL (<15); Sodium Level 138 mmol/L (136-145); Triglycerides 117 mg/dL; Very Low Density Lipoprotein 23 mg/dL (5-40)
[2020-03-21 16:42] LABS: Ferritin 219 ng/mL (8-252); Iron 19 ug/dL (50-170); Iron Binding Capacity,Total 327 ug/dL (250-450)
[2020-03-21 17:33] LABS: Hemoglobin A1c 6.7 % (3.8-5.6)
== END ==
PROVIDERS: PCP Internal Medicine; Referring Provider Internal Medicine; Visit Provider Internal Medicine
DX: I10 Essential (primary) hypertension (principal); M06.9 Rheumatoid arthritis, unspecified; D64.9 Anemia, unspecified; R73.09 Other abnormal glucose
CPT/HCPCS: 80053; 80061; 82728; 83036; 83540; 83550; 85025; 85652; 86140; 86431

== ENCOUNTER → 2020-05-09 | Outpatient (CLI) | payer OTHER, SELFPAY ==
[2020-03-21 08:20] VITALS: BMI 31.1
--- NOTE | 2020-05-09 10:06 | RAD_ITS ---
STUDY: X-RAY - RIGHT SHOULDER REASON FOR EXAM: Female, 65 years old. Limited range of motion TECHNIQUE: 5 view(s) of the shoulder. COMPARISON: None. FINDINGS: Normal glenohumeral articulation. Normal acromioclavicular joint. Normal acromion. Normal humeral head and visualized proximal humerus. The soft tissue structures are unremarkable. Pleural thickening at the pulmonary apex. RAD/Shoulder min 2 Views IMPRESSION: No acute bony pathology of the shoulder. Electronically Signed: Juvenal Diaz DO at 21:03 EDT Tel [phone], Service support ,
--- NOTE | 2020-05-09 10:06 | RAD_ITS ---
STUDY: X-RAY CHEST REASON FOR EXAM: Female, 65 years old. 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 There is right apical pleural thickening. Normal size heart. Normal mediastinum and ml. Normal visualized pulmonary arteries. Normal visualized aortic arch and descending thoracic aorta. Normal visualized thoracic spine. Mild wedge compression of probable L1. Normal visualized ribs, clavicles, and shoulders. There is no demonstrated abnormality of the visualized soft tissue structures of the upper abdomen. RAD/Chest PA and Lateral IMPRESSION: Right apical pleural thickening. Electronically Signed: Juvenal Diaz DO at 23:40 EDT Tel [phone], Service support ,
--- NOTE | 2020-05-09 10:06 | RAD_ITS ---
STUDY: X-RAY - LEFT SHOULDER REASON FOR EXAM: Female, 65 years old. Limited range of motion TECHNIQUE: 4 view(s) of the shoulder. COMPARISON: None. FINDINGS: Normal glenohumeral articulation. Normal acromioclavicular joint. Normal acromion. Normal humeral head and visualized proximal humerus. The soft tissue structures are unremarkable. Pleural thickening at the pulmonary apex. RAD/Shoulder min 2 Views IMPRESSION: Normal x-ray examination of the shoulder. Electronically Signed: Juvenal Diaz DO at 20:06 EDT Tel [phone], Service support ,
[2020-05-09 12:26] LABS: Absolute Lymphocyte Count 1.02 X10^3/uL (0.83-4.51); Absolute Neutrophil Count 9.4 X10^3/uL (2.0-7.7); Basophil# 0.03 X10^3/uL; Basophil% 0.3 % (0-1); Eosinophil# 0.01 X10^3/uL; Eosinophils% 0.1 % (0-5); Hematocrit 33.4 % (37-47); Hemoglobin 9.9 g/dL (12.0-15.0); Lymphocyte # 1.02 X10^3/ul (4.0); Lymphocyte % 9.2 % (19-41); Mean Corp Hgb Conc 29.6 g/dL (32-36); Mean Corpuscular Hgb 25.2 pg (27.0-32.0); Mean Platelet Vol. 9.2 fl (6.2-12.0); Monocyte# 0.52 X10^3/uL; Monocyte% 4.7 % (0-10); NRBC Flagged by Analyzer 0 % (0-5); Neutrophil # 9.42 X10^3/uL (2.7-7.7); Neutrophil % 85.2 % (47-70); Platelet Count 458 K/mm3 (150-450); RBC Distribution Width CV 15.9 % (11.6-14.6); RBC Distribution Width SD 49.6 fl (35.1-43.9); Red Blood Count 3.93 M/mm3 (4.2-5.4); White Blood Count 11.1 K/mm3 (4.4-11.0)
[2020-05-09 13:00] LABS: ALB/GLOB Ratio 0.5 RATIO (0.9-2.4); AST(SGOT) 13 U/L (15-37); Alanine Aminotransfer ALT/SGPT 27 U/L (13-56); Alkaline Phosphatase 123 U/L (45-117); Anion Gap 6 (5-15); BUN 28 mg/dL (7-18); BUN/Creat Ratio 37.2 RATIO (10-20); Calcium,Total 9.9 mg/dL (8.5-10.1); Chloride 109 mmol/L (98-107); Creatinine, Serum 0.75 mg/dL (0.55-1.02); EST Glomerular Filtration Rate 83 mL/min (>60); Est Glom Filt Rate - Afr Amer 100 mL/min (>60); Globulin 5.8 g/dL (2.2-4.2); Glucose 140 mg/dL (74-106); Protein, Total 8.8 g/dL (6.4-8.2); Sodium Level 140 mmol/L (136-145)
[2020-05-09 13:39] LABS: Hepatitis B Surface Antibody Non-Reactive; Hepatitis B Surface Antigen Non-Reactive (Nonreactive); Hepatitis C Antibody Non-Reactive (Nonreactive)
[2020-05-10 14:22] LABS: ANTINUCLEAR ANTIBODIES DIRECT Negative (Negative)
[2020-05-12 03:07] LABS: QNTFERON TB Nil Value 0.02 IU/mL (.); QNTFERON TB1+ Ag Value 0.02 IU/mL (.); QNTFERON TB2+ Ag Value 0.02 IU/mL (.)
[2020-05-12 04:33] LABS: CCP IgG Antibodies 4 units (0-19); Hepatitis B Core AB IgM Negative (Negative); QNTIFERON TB Positive Criteria Negative (Negative)
== END | disposition home or self-care (01) ==
PROVIDERS: PCP Internal Medicine; Referring Provider Internal Medicine Rheumatology; Visit Provider Internal Medicine Rheumatology
DX: L40.59 Other psoriatic arthropathy (principal); L40.8 Other psoriasis; M16.0 Bilateral primary osteoarthritis of hip; M47.892 Other spondylosis, cervical region; M47.897 Other spondylosis, lumbosacral region; I10 Essential (primary) hypertension; E78.5 Hyperlipidemia, unspecified; Z79.899 Other long term (current) drug therapy
CPT/HCPCS: 36415; 71046; 73030; 80053; 85025; 86038; 86200; 86480; 86705; 86706; 86803; 87340

== ENCOUNTER → 2020-06-01 | Outpatient (CLI) | payer OTHER, SELFPAY ==
[2020-06-01 10:46] LABS: Vitamin B12 487 pg/mL (211-911)
[2020-06-01 11:29] LABS: CPK Total, Creatine Kinase 54 U/L (26-192); Creatinine, Serum 0.68 mg/dL (0.55-1.02); EST Glomerular Filtration Rate 93 mL/min (>60); Est Glom Filt Rate - Afr Amer 113 mL/min (>60); Thyroid Stim Hormone (TSH) 0.37 uIU/mL (0.358-3.74)
[2020-06-02 09:49] LABS: Myoglobin, Serum < 21 ng/mL (25-58)
== END | disposition home or self-care (01) ==
LOC: LAB 09:09
PROVIDERS: PCP Internal Medicine; Referring Provider Psychiatry & Neurology Neurology; Visit Provider Psychiatry & Neurology Neurology
DX: D64.9 Anemia, unspecified (principal); L40.50 Arthropathic psoriasis, unspecified; R53.1 Weakness; R53.83 Other fatigue
CPT/HCPCS: 36415; 82550; 82565; 82607; 82746; 83874; 84443

== ENCOUNTER → 2020-06-29 07:36 | Outpatient (CLI) | payer OTHER, SELFPAY ==
--- NOTE | 2020-06-29 07:39 | CT_ITS ---
STUDY: CT CHEST WITH CONTRAST REASON FOR EXAM: Female, 65 years old. Right apical pleural thickening. PSORIATIC ARTHRITIS RADIATION DOSAGE (If Supplied By Facility): CTDIvol = ( 8.60 ) mGy, DLP = ( 369.75 ) mGycm TECHNIQUE: Transaxial imaging was performed following intravenous administration of IV 100mL Isovue-300. Individualized dose optimization techniques were used for this CT. COMPARISON: Chest x-ray 05/09/2020, CT 09/05/2017 FINDINGS: Mild bilateral apical scarring. No noncalcified nodule or mass. There is no demonstrated pleural abnormality. Normal heart and pericardium. Small hiatal hernia. Normal mediastinum. Normal hilar regions. Normal enhanced pulmonary arteries. Normal aorta arch and descending thoracic aorta. Mild levoscoliosis of the lower thoracic spine. There is no demonstrated abnormality of the visualized upper abdomen. CT/Chest WITH Contrast IMPRESSION: Mild bilateral apical scarring. Electronically Signed: Juwan Gregory MD at 9:34 EST Tel , Service support ,
== END ==
PROVIDERS: PCP Internal Medicine; Referring Provider Internal Medicine; Visit Provider Internal Medicine
DX: J98.4 Other disorders of lung (principal); R93.89 Abnormal findings on diagnostic imaging of other specified body structures
CPT/HCPCS: 71260; Q9967

== ENCOUNTER → 2020-07-04 09:09 | Outpatient (CLI) | payer OTHER, SELFPAY ==
[2020-07-04 09:34] LABS: Absolute Lymphocyte Count 0.89 X10^3/uL (0.83-4.51); Absolute Neutrophil Count 9.2 X10^3/uL (2.0-7.7); Basophil# 0.03 X10^3/uL; Basophil% 0.3 % (0-1); Eosinophil# 0.04 X10^3/uL; Eosinophils% 0.4 % (0-5); Hematocrit 39.1 % (37-47); Hemoglobin 11.7 g/dL (12.0-15.0); Lymphocyte # 0.89 X10^3/ul (4.0); Lymphocyte % 8.3 % (19-41); Mean Corp Hgb Conc 29.9 g/dL (32-36); Mean Corpuscular Hgb 26.1 pg (27.0-32.0); Mean Corpuscular Volume 87.1 fL (81-99); Mean Platelet Vol. 9.6 fl (6.2-12.0); Monocyte# 0.54 X10^3/uL; NRBC Flagged by Analyzer 0 % (0-5); Neutrophil # 9.18 X10^3/uL (2.7-7.7); Neutrophil % 85.7 % (47-70); Platelet Count 354 K/mm3 (150-450); RBC Distribution Width CV 17.1 % (11.6-14.6); RBC Distribution Width SD 54.6 fl (35.1-43.9); Red Blood Count 4.49 M/mm3 (4.2-5.4); White Blood Count 10.7 K/mm3 (4.4-11.0)
[2020-07-04 09:57] LABS: Anion Gap 4 (5-15); BUN 23 mg/dL (7-18); BUN/Creat Ratio 28.1 RATIO (10-20); Calcium,Total 9.8 mg/dL (8.5-10.1); Chloride 109 mmol/L (98-107); Creatinine, Serum 0.82 mg/dL (0.55-1.02); EST Glomerular Filtration Rate 75 mL/min (>60); Est Glom Filt Rate - Afr Amer 91 mL/min (>60); Glucose 111 mg/dL (74-106); Potassium 4.2 mmol/L (3.5-5.1); Sodium Level 139 mmol/L (136-145)
== END ==
PROVIDERS: PCP Internal Medicine; Referring Provider Internal Medicine; Visit Provider Internal Medicine
DX: D64.9 Anemia, unspecified (principal)
CPT/HCPCS: 36415; 80048; 85025

== ENCOUNTER → 2020-08-28 13:22 | Outpatient (CLI) | payer OTHER, SELFPAY ==
[2020-08-28 15:53] LABS: Absolute Lymphocyte Count 1.29 X10^3/uL (0.83-4.51); Basophil# 0.03 X10^3/uL; Basophil% 0.3 % (0-1); Eosinophil# 0.08 X10^3/uL; Eosinophils% 0.8 % (0-5); Hematocrit 39.3 % (37-47); Hemoglobin 11.8 g/dL (12.0-15.0); Lymphocyte # 1.29 X10^3/ul (4.0); Lymphocyte % 12.9 % (19-41); Mean Corpuscular Volume 86.6 fL (81-99); Mean Platelet Vol. 10.2 fl (6.2-12.0); Monocyte# 0.56 X10^3/uL; Monocyte% 5.6 % (0-10); NRBC Flagged by Analyzer 0 % (0-5); Neutrophil # 7.99 X10^3/uL (2.7-7.7); Platelet Count 439 K/mm3 (150-450); RBC Distribution Width CV 15.9 % (11.6-14.6); RBC Distribution Width SD 50.5 fl (35.1-43.9); Red Blood Count 4.54 M/mm3 (4.2-5.4)
[2020-08-28 16:20] LABS: ALB/GLOB Ratio 0.6 RATIO (0.9-2.4); AST(SGOT) 21 U/L (15-37); Alanine Aminotransfer ALT/SGPT 29 U/L (13-56); Albumin, Serum 3.3 g/dL (3.2-5.0); Alkaline Phosphatase 117 U/L (45-117); Anion Gap 7 (5-15); BUN 24 mg/dL (7-18); BUN/Creat Ratio 28.1 RATIO (10-20); Calcium,Total 9.5 mg/dL (8.5-10.1); Chloride 106 mmol/L (98-107); Creatinine, Serum 0.85 mg/dL (0.55-1.02); EST Glomerular Filtration Rate 71 mL/min (>60); Est Glom Filt Rate - Afr Amer 86 mL/min (>60); Globulin 5.7 g/dL (2.2-4.2); Glucose 181 mg/dL (74-106); Potassium 4.3 mmol/L (3.5-5.1); Sodium Level 138 mmol/L (136-145)
== END ==
PROVIDERS: PCP Internal Medicine; Referring Provider Internal Medicine Rheumatology; Visit Provider Internal Medicine Rheumatology
DX: L40.59 Other psoriatic arthropathy (principal); L40.8 Other psoriasis; M16.0 Bilateral primary osteoarthritis of hip; M47.892 Other spondylosis, cervical region; M47.897 Other spondylosis, lumbosacral region; I10 Essential (primary) hypertension; E78.5 Hyperlipidemia, unspecified; Z79.899 Other long term (current) drug therapy
CPT/HCPCS: 36415; 80053; 85025

== ENCOUNTER → 2020-11-23 08:19 | Outpatient (CLI) | payer OTHER, SELFPAY ==
[2020-11-10 08:03] VITALS: BMI 30.2
--- NOTE | 2020-11-23 08:26 | BD_ITS ---
STUDY: DUAL ENERGY X-RAY ABSORPTIOMETRY / DXA REASON FOR EXAM: Female, 65 years old. 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 COMPARISON: None. FINDINGS: Lumbar Spine (L1-L4): g/cm2 (0.808) / T-score (-3.1) / Z-score (-1.6) Findings are suggestive of osteoporosis with a high fracture risk. Left Femur Total: g/cm2 (0.493) / T-score (-4.1) / Z-score (-3.0) Left Femoral Neck: g/cm2 (0.593) / T-score (-3.2) / Z-score (-1.8) BD/Dexa Bone Density Study IMPRESSION: The patient is considered osteoporotic as outlined below according to World Jay Organization (WHO) criteria with a high fracture risk. Reference Information: The T-score is the number of standard deviations above or below the standard which is normal for young adults at their peak bone mineral density. The World Health Organization (WHO) interprets the T-scores as follows: Above -1 Normal bone density Between -1 and -2.5 Osteopenia Equal to / or below -2.5 Osteoporosis As a practical clinical guideline, osteopenia may be graded as follows: Mild -1 through -1.5 Moderate -1.6 through -2.0 Severe -2.1 through -2.4 The Z-score is the number of standard deviations above or below age-matched controls. A Z-score of less than -1.5 would be considered abnormal. References: 1. NIH Osteoporosis and Related Bone Diseases www osteo.org 2. International Society for Clinical Densitometry www iscd.org 3. National Osteoporosis Foundation www nof.org Electronically Signed: Timoteo Otoole MD at 13:54 EDT , Service support ,
== END ==
PROVIDERS: PCP Internal Medicine; Referring Provider Internal Medicine; Visit Provider Internal Medicine
DX: Z78.0 Asymptomatic menopausal state (principal)
CPT/HCPCS: 77080

== ENCOUNTER → 2021-02-05 16:33 | Outpatient (CLI) | payer OTHER, SELFPAY ==
[2020-11-10 08:03] VITALS: BMI 30.2
[2021-02-05 18:25] LABS: Absolute Lymphocyte Count 2.71 X10^3/uL (0.83-4.51); Absolute Neutrophil Count 5.1 X10^3/uL (2.0-7.7); Basophil# 0.02 X10^3/uL; Basophil% 0.2 % (0-1); Eosinophil# 0.11 X10^3/uL; Eosinophils% 1.3 % (0-5); Hematocrit 34.4 % (37-47); Hemoglobin 10.5 g/dL (12.0-15.0); Lymphocyte # 2.71 X10^3/ul (0.83-4.51); Lymphocyte % 31.2 % (19-41); Mean Corp Hgb Conc 30.5 g/dL (32-36); Mean Corpuscular Hgb 26.6 pg (27.0-32.0); Mean Corpuscular Volume 87.1 fL (81-99); Mean Platelet Vol. 9.5 fl (6.2-12.0); Monocyte# 0.68 X10^3/uL; Monocyte% 7.8 % (0-10); NRBC Flagged by Analyzer 0 % (0-5); Neutrophil # 5.13 X10^3/uL (2.7-7.7); Neutrophil % 59.2 % (47-70); Platelet Count 601 K/mm3 (150-450); RBC Distribution Width CV 14.5 % (11.6-14.6); RBC Distribution Width SD 46.4 fl (35.1-43.9); Red Blood Count 3.95 M/mm3 (4.2-5.4); White Blood Count 8.7 K/mm3 (4.4-11.0)
[2021-02-05 18:34] LABS: ALB/GLOB Ratio 0.5 RATIO (0.9-2.4); AST(SGOT) 10 U/L (15-37); Alanine Aminotransfer ALT/SGPT 14 U/L (13-56); Albumin, Serum 3.3 g/dL (3.2-5.0); Alkaline Phosphatase 92 U/L (45-117); Anion Gap 11 (5-15); BUN 35 mg/dL (7-18); BUN/Creat Ratio 38.2 RATIO (10-20); Calcium,Total 10.1 mg/dL (8.5-10.1); Chloride 104 mmol/L (98-107); Creatinine, Serum 0.92 mg/dL (0.55-1.02); EST Glomerular Filtration Rate 66 mL/min (>60); Est Glom Filt Rate - Afr Amer 79 mL/min (>60); Globulin 6.1 g/dL (2.2-4.2); Glucose 83 mg/dL (74-106); Potassium 4.5 mmol/L (3.5-5.1); Protein, Total 9.4 g/dL (6.4-8.2); Sodium Level 139 mmol/L (136-145)
[2021-02-05 18:37] LABS: Vitamin D,25 Hydroxy 30.8 ng/mL
[2021-02-05 18:44] LABS: Erythrocyte Sedimentation Rate 110 mm/hr (0-30)
== END ==
PROVIDERS: PCP Internal Medicine; Referring Provider Internal Medicine; Visit Provider Internal Medicine
DX: E55.9 Vitamin D deficiency, unspecified (principal); L40.59 Other psoriatic arthropathy; L40.8 Other psoriasis; M16.0 Bilateral primary osteoarthritis of hip; M47.892 Other spondylosis, cervical region; M47.897 Other spondylosis, lumbosacral region; I10 Essential (primary) hypertension; E78.5 Hyperlipidemia, unspecified; Z79.899 Other long term (current) drug therapy; Z78.0 Asymptomatic menopausal state
CPT/HCPCS: 36415; 80053; 82306; 85025; 85652; 86140

== ENCOUNTER → 2021-06-11 11:15 | Outpatient (CLI) | payer OTHER, SELFPAY ==
[2021-06-11 12:00] LABS: Absolute Lymphocyte Count 1.38 X10^3/uL (0.83-4.51); Absolute Neutrophil Count 7.1 X10^3/uL (2.0-7.7); Basophil# 0.01 X10^3/uL; Basophil% 0.1 % (0-1); Eosinophil# 0.02 X10^3/uL; Eosinophils% 0.2 % (0-5); Hematocrit 34.5 % (37-47); Hemoglobin 10.7 g/dL (12.0-15.0); Lymphocyte # 1.38 X10^3/ul (0.83-4.51); Lymphocyte % 15.2 % (19-41); Mean Corpuscular Volume 83.9 fL (81-99); Mean Platelet Vol. 9.3 fl (6.2-12.0); Monocyte# 0.51 X10^3/uL; Monocyte% 5.6 % (0-10); NRBC Flagged by Analyzer 0 % (0-5); Neutrophil # 7.14 X10^3/uL (2.7-7.7); Neutrophil % 78.7 % (47-70); Platelet Count 492 K/mm3 (150-450); RBC Distribution Width CV 15.4 % (11.6-14.6); RBC Distribution Width SD 46.8 fl (35.1-43.9); Red Blood Count 4.11 M/mm3 (4.2-5.4); White Blood Count 9.1 K/mm3 (4.4-11.0)
[2021-06-11 12:17] LABS: Erythrocyte Sedimentation Rate 94 mm/hr (0-30)
[2021-06-11 12:51] LABS: ALB/GLOB Ratio 0.5 RATIO (0.9-2.4); AST(SGOT) 15 U/L (15-37); Alanine Aminotransfer ALT/SGPT 19 U/L (13-56); Alkaline Phosphatase 101 U/L (45-117); Anion Gap 5 (5-15); BUN 23 mg/dL (7-18); Calcium,Total 9.9 mg/dL (8.5-10.1); Chloride 108 mmol/L (98-107); EST Glomerular Filtration Rate 90 mL/min (>60); Est Glom Filt Rate - Afr Amer 109 mL/min (>60); Glucose 123 mg/dL (74-106); Potassium 4.1 mmol/L (3.5-5.1); Sodium Level 138 mmol/L (136-145)
== END ==
PROVIDERS: PCP Internal Medicine; Referring Provider Internal Medicine Rheumatology; Visit Provider Internal Medicine Rheumatology
DX: L40.59 Other psoriatic arthropathy (principal); L40.8 Other psoriasis; M16.0 Bilateral primary osteoarthritis of hip; M47.892 Other spondylosis, cervical region; M47.897 Other spondylosis, lumbosacral region; I10 Essential (primary) hypertension; E78.5 Hyperlipidemia, unspecified; Z79.899 Other long term (current) drug therapy
CPT/HCPCS: 36415; 80053; 85025; 85652; 86140

== ENCOUNTER 2021-11-10 09:06 | Outpatient (CLI) | payer OTHER, SELFPAY ==
[2021-11-10 09:44] LABS: Erythrocyte Sedimentation Rate 40 mm/hr (0-30)
[2021-11-10 09:45] LABS: Absolute Lymphocyte Count 1.38 X10^3/uL (0.83-4.51); Basophil# 0.02 X10^3/uL; Basophil% 0.2 % (0-1); Eosinophil# 0.07 X10^3/uL; Eosinophils% 0.7 % (0-5); Hematocrit 37.8 % (37-47); Lymphocyte # 1.38 X10^3/ul (0.83-4.51); Lymphocyte % 13.9 % (19-41); Mean Corp Hgb Conc 31.7 g/dL (32-36); Mean Corpuscular Hgb 27.5 pg (27.0-32.0); Mean Corpuscular Volume 86.7 fL (81-99); Mean Platelet Vol. 9.7 fl (6.2-12.0); Monocyte# 0.48 X10^3/uL; Monocyte% 4.8 % (0-10); NRBC Flagged by Analyzer 0 % (0-5); Neutrophil # 7.96 X10^3/uL (2.7-7.7); Neutrophil % 80.1 % (47-70); Platelet Count 377 K/mm3 (150-450); RBC Distribution Width CV 16.7 % (11.6-14.6); RBC Distribution Width SD 53.5 fl (35.1-43.9); Red Blood Count 4.36 M/mm3 (4.2-5.4); White Blood Count 9.9 K/mm3 (4.4-11.0)
[2021-11-10 09:59] LABS: ALB/GLOB Ratio 0.7 RATIO (0.9-2.4); AST(SGOT) 14 U/L (15-37); Alanine Aminotransfer ALT/SGPT 17 U/L (13-56); Albumin, Serum 3.5 g/dL (3.2-5.0); Alkaline Phosphatase 73 U/L (45-117); Anion Gap 6 (5-15); BUN 29 mg/dL (7-18); BUN/Creat Ratio 31.7 RATIO (10-20); Calcium,Total 9.5 mg/dL (8.5-10.1); Chloride 108 mmol/L (98-107); Creatinine, Serum 0.92 mg/dL (0.55-1.02); EST Glomerular Filtration Rate 66 mL/min (>60); Est Glom Filt Rate - Afr Amer 79 mL/min (>60); Globulin 5.1 g/dL (2.2-4.2); Glucose 189 mg/dL (74-106); Potassium 4.5 mmol/L (3.5-5.1); Protein, Total 8.6 g/dL (6.4-8.2); Sodium Level 139 mmol/L (136-145)
== END 2021-11-10 23:59 | disposition home or self-care (01) ==
PROVIDERS: PCP Internal Medicine; Referring Provider Internal Medicine Rheumatology; Visit Provider Internal Medicine Rheumatology
DX: L40.59 Other psoriatic arthropathy (principal); L40.8 Other psoriasis; M16.0 Bilateral primary osteoarthritis of hip; M47.892 Other spondylosis, cervical region; M47.897 Other spondylosis, lumbosacral region; I10 Essential (primary) hypertension; E78.5 Hyperlipidemia, unspecified; Z79.899 Other long term (current) drug therapy
CPT/HCPCS: 36415; 80053; 85025; 85652; 86140

== ENCOUNTER → 2021-12-25 | Outpatient (CLI) | payer OTHER, SELFPAY ==
[2021-12-25 12:32] LABS: Anion Gap 7 (5-15); BUN 33 mg/dL (7-18); BUN/Creat Ratio 37.6 RATIO (10-20); Calcium,Total 9.9 mg/dL (8.5-10.1); Chloride 106 mmol/L (98-107); Cholesterol 255 mg/dL (200); Creatinine, Serum 0.88 mg/dL (0.55-1.02); EST Glomerular Filtration Rate 69 mL/min (>60); Est Glom Filt Rate - Afr Amer 83 mL/min (>60); Glucose 151 mg/dL (74-106); High Density Lipoprotein 54 mg/dL; Potassium 4.9 mmol/L (3.5-5.1); Sodium Level 137 mmol/L (136-145); Triglycerides 139 mg/dL; Very Low Density Lipoprotein 28 mg/dL (5-40)
== END | disposition home or self-care (01) ==
LOC: BIMLAB 08:53
PROVIDERS: PCP Internal Medicine; Referring Provider Internal Medicine; Visit Provider Internal Medicine
DX: Z00.00 Encounter for general adult medical examination without abnormal findings (principal)
CPT/HCPCS: 36415; 80048; 80061

== ENCOUNTER → 2022-05-04 | Outpatient (CLI) | payer OTHER, SELFPAY ==
[2022-05-04 09:48] LABS: Absolute Lymphocyte Count 1.27 X10^3/uL (0.83-4.51); Absolute Neutrophil Count 5.4 X10^3/uL (2.0-7.7); Basophil# 0.01 X10^3/uL; Basophil% 0.1 % (0-1); Eosinophil# 0.05 X10^3/uL; Eosinophils% 0.7 % (0-5); Hematocrit 38.3 % (37-47); Lymphocyte # 1.27 X10^3/ul (0.83-4.51); Mean Corp Hgb Conc 31.3 g/dL (32-36); Mean Corpuscular Hgb 28.3 pg (27.0-32.0); Mean Corpuscular Volume 90.3 fL (81-99); Mean Platelet Vol. 10.3 fl (6.2-12.0); Monocyte# 0.36 X10^3/uL; Monocyte% 5.1 % (0-10); NRBC Flagged by Analyzer 0 % (0-5); Neutrophil # 5.36 X10^3/uL (2.7-7.7); Neutrophil % 75.8 % (47-70); Platelet Count 317 K/mm3 (150-450); RBC Distribution Width SD 49.4 fl (35.1-43.9); Red Blood Count 4.24 M/mm3 (4.2-5.4); White Blood Count 7.1 K/mm3 (4.4-11.0)
[2022-05-04 10:01] LABS: Erythrocyte Sedimentation Rate 61 mm/hr (0-30)
[2022-05-04 10:06] LABS: ALB/GLOB Ratio 0.7 RATIO (0.9-2.4); AST(SGOT) 15 U/L (15-37); Alanine Aminotransfer ALT/SGPT 21 U/L (13-56); Albumin, Serum 3.6 g/dL (3.2-5.0); Alkaline Phosphatase 84 U/L (45-117); Anion Gap 6 (5-15); BUN 30 mg/dL (7-18); BUN/Creat Ratio 33.8 RATIO (10-20); Calcium,Total 9.6 mg/dL (8.5-10.1); Chloride 109 mmol/L (98-107); Creatinine, Serum 0.89 mg/dL (0.55-1.02); EST Glomerular Filtration Rate 68 mL/min (>60); Est Glom Filt Rate - Afr Amer 82 mL/min (>60); Globulin 4.9 g/dL (2.2-4.2); Glucose 211 mg/dL (74-106); Potassium 4.8 mmol/L (3.5-5.1); Protein, Total 8.5 g/dL (6.4-8.2); Sodium Level 141 mmol/L (136-145)
== END | disposition home or self-care (01) ==
LOC: LAB 08:55
PROVIDERS: PCP Internal Medicine; Referring Provider Internal Medicine Rheumatology; Visit Provider Internal Medicine Rheumatology
DX: L40.59 Other psoriatic arthropathy (principal); L40.8 Other psoriasis; M16.0 Bilateral primary osteoarthritis of hip; M47.892 Other spondylosis, cervical region; M47.897 Other spondylosis, lumbosacral region; I10 Essential (primary) hypertension; E78.5 Hyperlipidemia, unspecified; Z79.899 Other long term (current) drug therapy
CPT/HCPCS: 36415; 80053; 85025; 85652; 86140

== ENCOUNTER → 2022-11-01 | Outpatient (CLI) | payer OTHER, SELFPAY ==
[2022-11-01 15:31] LABS: ALB/GLOB Ratio 0.6 RATIO (0.9-2.4); AST(SGOT) 17 U/L (15-37); Alanine Aminotransfer ALT/SGPT 20 U/L (13-56); Albumin, Serum 3.2 g/dL (3.2-5.0); Alkaline Phosphatase 76 U/L (45-117); Anion Gap 6 (5-15); BUN 26 mg/dL (7-18); BUN/Creat Ratio 27.9 RATIO (10-20); Calcium,Total 10.1 mg/dL (8.5-10.1); Chloride 103 mmol/L (98-107); Creatinine, Serum 0.93 mg/dL (0.55-1.02); EST Glomerular Filtration Rate 64 mL/min (>60); Est Glom Filt Rate - Afr Amer 78 mL/min (>60); Globulin 5.4 g/dL (2.2-4.2); Glucose 222 mg/dL (74-106); Protein, Total 8.6 g/dL (6.4-8.2); Sodium Level 135 mmol/L (136-145)
[2022-11-01 19:38] LABS: Erythrocyte Sedimentation Rate 99 mm/hr (0-30)
[2022-11-01 19:40] LABS: Absolute Lymphocyte Count 1.91 X10^3/uL (0.83-4.51); Absolute Neutrophil Count 7.3 X10^3/uL (2.0-7.7); Basophil# 0.02 X10^3/uL; Basophil% 0.2 % (0-1); Eosinophil# 0.03 X10^3/uL; Eosinophils% 0.3 % (0-5); Hemoglobin 11.1 g/dL (12.0-15.0); Lymphocyte # 1.91 X10^3/ul (0.83-4.51); Lymphocyte % 19.1 % (19-41); Mean Corp Hgb Conc 30.8 g/dL (32-36); Mean Corpuscular Hgb 27.5 pg (27.0-32.0); Mean Corpuscular Volume 89.3 fL (81-99); Mean Platelet Vol. 9.8 fl (6.2-12.0); Monocyte# 0.74 X10^3/uL; Monocyte% 7.4 % (0-10); NRBC Flagged by Analyzer 0 % (0-5); Neutrophil # 7.26 X10^3/uL (2.7-7.7); Neutrophil % 72.5 % (47-70); Platelet Count 573 K/mm3 (150-450); RBC Distribution Width CV 13.6 % (11.6-14.6); Red Blood Count 4.03 M/mm3 (4.2-5.4)
== END | disposition home or self-care (01) ==
LOC: MTLAB 13:32
PROVIDERS: PCP Internal Medicine; Referring Provider Internal Medicine Rheumatology; Visit Provider Internal Medicine Rheumatology
DX: L40.59 Other psoriatic arthropathy (principal); L40.8 Other psoriasis; Z79.899 Other long term (current) drug therapy
CPT/HCPCS: 36415; 80053; 85025; 85652; 86140

== ENCOUNTER → 2022-11-27 | Outpatient (CLI) | payer OTHER, SELFPAY ==
[2022-11-27 13:21] LABS: Cholesterol 243 mg/dL (200); High Density Lipoprotein 48 mg/dL; Thyroid Stim Hormone (TSH) 0.46 uIU/mL (0.358-3.74); Triglycerides 267 mg/dL; Very Low Density Lipoprotein 53 mg/dL (5-40)
[2022-11-27 14:12] LABS: Hemoglobin A1c 6.8 % (3.8-5.6)
== END | disposition home or self-care (01) ==
LOC: BIMLAB 08:50
PROVIDERS: PCP Internal Medicine; Referring Provider Nurse Practitioner Family; Visit Provider Nurse Practitioner Family
DX: Z00.00 Encounter for general adult medical examination without abnormal findings (principal); R73.09 Other abnormal glucose
CPT/HCPCS: 36415; 80061; 83036; 84443

== ENCOUNTER → 2023-01-21 | Outpatient (CLI) | payer OTHER, SELFPAY ==
[2023-01-21 15:39] LABS: Absolute Neutrophil Count 6.7 X10^3/uL (2.0-7.7); Basophil# 0.03 X10^3/uL; Basophil% 0.3 % (0-1); Eosinophil# 0.09 X10^3/uL; Eosinophils% 0.9 % (0-5); Hematocrit 40.5 % (37-47); Hemoglobin 12.2 g/dL (12.0-15.0); Lymphocyte % 23.9 % (19-41); Mean Corp Hgb Conc 30.1 g/dL (32-36); Mean Corpuscular Hgb 27.1 pg (27.0-32.0); Mean Platelet Vol. 10.2 fl (6.2-12.0); Monocyte# 0.45 X10^3/uL; Monocyte% 4.7 % (0-10); NRBC Flagged by Analyzer 0 % (0-5); Neutrophil # 6.73 X10^3/uL (2.7-7.7); Neutrophil % 69.9 % (47-70); Platelet Count 322 K/mm3 (150-450); RBC Distribution Width CV 17.4 % (11.6-14.6); RBC Distribution Width SD 57.9 fl (35.1-43.9); White Blood Count 9.6 K/mm3 (4.4-11.0)
[2023-01-21 15:59] LABS: ALB/GLOB Ratio 0.9 RATIO (0.9-2.4); AST(SGOT) 18 U/L (15-37); Alanine Aminotransfer ALT/SGPT 31 U/L (13-56); Albumin, Serum 3.9 g/dL (3.2-5.0); Alkaline Phosphatase 93 U/L (45-117); Anion Gap 6 (5-15); BUN 28 mg/dL (7-18); BUN/Creat Ratio 38.6 RATIO (10-20); CRP 9.45 mg/L (0.0-3.0); Calcium,Total 10.1 mg/dL (8.5-10.1); Chloride 107 mmol/L (98-107); Creatinine, Serum 0.73 mg/dL (0.55-1.02); EST Glomerular Filtration Rate 85 mL/min (>60); Erythrocyte Sedimentation Rate 43 mm/hr (0-30); Est Glom Filt Rate - Afr Amer 103 mL/min (>60); Globulin 4.5 g/dL (2.2-4.2); Glucose 108 mg/dL (74-106); Potassium 4.5 mmol/L (3.5-5.1); Protein, Total 8.4 g/dL (6.4-8.2); Sodium Level 138 mmol/L (136-145)
== END | disposition home or self-care (01) ==
LOC: MTLAB 13:07
PROVIDERS: PCP Internal Medicine; Referring Provider Internal Medicine Rheumatology; Visit Provider Internal Medicine Rheumatology
DX: L40.59 Other psoriatic arthropathy (principal); L40.8 Other psoriasis; Z79.899 Other long term (current) drug therapy
CPT/HCPCS: 36415; 80053; 85025; 85652; 86140

== ENCOUNTER → 2023-05-13 | Outpatient (CLI) | payer OTHER, SELFPAY ==
[2023-05-13 07:30] LABS: Absolute Lymphocyte Count 3.29 X10^3/uL (0.83-4.51); Basophil# 0.02 X10^3/uL; Basophil% 0.2 % (0-1); Eosinophil# 0.23 X10^3/uL; Eosinophils% 2.8 % (0-5); Hematocrit 39.1 % (37-47); Hemoglobin 12.1 g/dL (12.0-15.0); Lymphocyte # 3.29 X10^3/ul (0.83-4.51); Lymphocyte % 40.4 % (19-41); Mean Corp Hgb Conc 30.9 g/dL (32-36); Mean Corpuscular Hgb 29.7 pg (27.0-32.0); Mean Corpuscular Volume 95.8 fL (81-99); Mean Platelet Vol. 9.9 fl (6.2-12.0); Monocyte# 0.64 X10^3/uL; Monocyte% 7.9 % (0-10); NRBC Flagged by Analyzer 0 % (0-5); Neutrophil # 3.95 X10^3/uL (2.7-7.7); Neutrophil % 48.5 % (47-70); Platelet Count 364 K/mm3 (150-450); RBC Distribution Width SD 49.1 fl (35.1-43.9); Red Blood Count 4.08 M/mm3 (4.2-5.4); White Blood Count 8.2 K/mm3 (4.4-11.0)
[2023-05-13 08:22] LABS: ALB/GLOB Ratio 0.8 RATIO (0.9-2.4); AST(SGOT) 20 U/L (15-37); Alanine Aminotransfer ALT/SGPT 33 U/L (13-56); Albumin, Serum 3.6 g/dL (3.2-5.0); Alkaline Phosphatase 95 U/L (45-117); Anion Gap 7 (5-15); BUN 32 mg/dL (7-18); BUN/Creat Ratio 31.4 RATIO (10-20); Calcium,Total 9.7 mg/dL (8.5-10.1); Chloride 107 mmol/L (98-107); Creatinine, Serum 1.02 mg/dL (0.55-1.02); EST Glomerular Filtration Rate 58 mL/min (>60); Est Glom Filt Rate - Afr Amer 70 mL/min (>60); Globulin 4.3 g/dL (2.2-4.2); Glucose 146 mg/dL (74-106); Potassium 4.4 mmol/L (3.5-5.1); Protein, Total 7.9 g/dL (6.4-8.2); Sodium Level 140 mmol/L (136-145)
[2023-05-13 08:23] LABS: Erythrocyte Sedimentation Rate 23 mm/hr (0-30)
== END | disposition home or self-care (01) ==
LOC: LAB 06:42
PROVIDERS: PCP Internal Medicine; Referring Provider Internal Medicine Rheumatology; Visit Provider Internal Medicine Rheumatology
DX: L40.59 Other psoriatic arthropathy (principal); Z79.899 Other long term (current) drug therapy
CPT/HCPCS: 36415; 80053; 85025; 85652; 86140

== ENCOUNTER → 2023-10-16 | Outpatient (CLI) | payer OTHER, SELFPAY ==
--- OUTSIDE RECORDS SUMMARY | 2023-10-16 07:25 | XMS RPT_ITS | CCD ---
Author Name Unknown Address [address] [place] [address] Organization [facility] Results Test Name Value Interpretation Reference Range Facil ity Summary Purpose Family History No Family History Records Found Advance Directives No Advanced Directives Records Found Additional Source Comments INFORMATION SOURCE (unrecogn ized section and content) FOR RECORDS PERTAINING TO PATIENTS WHO ARE OR HAVE BEEN ENROLLED IN A CHEMICAL DEPENDENCY/SUBSTANCEABUSE PROGRAM, SOME INFORMATION MAY BE OMITTED. This clinical summary was aggregated from multiple sources. Caution should be exercised in using it in the provision of clinical care. This summary normalizes information from multiple sources, and as a consequence, information in this document may materially change the coding, format and clinical context of patient data. In addition, data may be omitted in some cases. CLINICAL DECISIONS SHOULD BE BASED ON THE PRIMARY CLINICAL RECORDS. [employer] provides no warranty or guarantee of the accuracy or completeness of information in this document.
[2023-10-16 10:03] LABS: Erythrocyte Sedimentation Rate 43 mm/hr (0-30)
[2023-10-16 10:09] LABS: Absolute Lymphocyte Count 1.66 X10^3/uL (0.83-4.51); Absolute Neutrophil Count 5.7 X10^3/uL (2.0-7.7); Basophil# 0.02 X10^3/uL; Basophil% 0.2 % (0-1); Eosinophil# 0.14 X10^3/uL; Eosinophils% 1.7 % (0-5); Hematocrit 38.6 % (37-47); Hemoglobin 12.3 g/dL (12.0-15.0); Lymphocyte # 1.66 X10^3/ul (0.83-4.51); Lymphocyte % 20.6 % (19-41); Mean Corp Hgb Conc 31.9 g/dL (32-36); Mean Corpuscular Hgb 29.2 pg (27.0-32.0); Mean Corpuscular Volume 91.7 fL (81-99); Mean Platelet Vol. 10.2 fl (6.2-12.0); Monocyte% 6.2 % (0-10); NRBC Flagged by Analyzer 0 % (0-5); Neutrophil # 5.69 X10^3/uL (2.7-7.7); Neutrophil % 70.8 % (47-70); Platelet Count 298 K/mm3 (150-450); RBC Distribution Width CV 14.5 % (11.6-14.6); Red Blood Count 4.21 M/mm3 (4.2-5.4); White Blood Count 8.1 K/mm3 (4.4-11.0)
[2023-10-16 10:56] LABS: Vitamin D,25 Hydroxy 35.4 ng/mL
[2023-10-16 11:31] LABS: ALB/GLOB Ratio 0.9 RATIO (0.9-2.4); AST(SGOT) 21 U/L (15-37); Alanine Aminotransfer ALT/SGPT 26 U/L (13-56); Albumin, Serum 3.7 g/dL (3.2-5.0); Alkaline Phosphatase 94 U/L (45-117); Anion Gap 10 (5-15); BUN 26 mg/dL (7-18); BUN/Creat Ratio 30.2 RATIO (10-20); CRP 7.63 mg/L (0.0-3.0); Calcium,Total 9.7 mg/dL (8.5-10.1); Chloride 110 mmol/L (98-107); Cholesterol 283 mg/dL (200); Creatinine, Serum 0.86 mg/dL (0.55-1.02); EST Glomerular Filtration Rate 70 mL/min (>60); Est Glom Filt Rate - Afr Amer 85 mL/min (>60); Globulin 4.3 g/dL (2.2-4.2); Glucose 166 mg/dL (74-106); High Density Lipoprotein 56 mg/dL; Potassium 4.2 mmol/L (3.5-5.1); Sodium Level 141 mmol/L (136-145); Triglycerides 228 mg/dL; Very Low Density Lipoprotein 46 mg/dL (5-40)
[2023-10-16 14:36] LABS: Hemoglobin A1c 7.7 % (3.8-5.6)
== END | disposition home or self-care (01) ==
LOC: MTLAB 07:21
PROVIDERS: PCP Internal Medicine; Referring Provider Internal Medicine; Visit Provider Internal Medicine
DX: L40.59 Other psoriatic arthropathy (principal); L40.8 Other psoriasis; Z79.899 Other long term (current) drug therapy; I10 Essential (primary) hypertension; R73.9 Hyperglycemia, unspecified; M81.0 Age-related osteoporosis without current pathological fracture
CPT/HCPCS: 36415; 80053; 80061; 82306; 83036; 85025; 85652; 86140

== ENCOUNTER → 2024-01-28 | Outpatient (CLI) | payer OTHER, SELFPAY ==
[2024-01-28 12:09] LABS: Hemoglobin A1c 7.3 % (3.8-5.6)
== END | disposition home or self-care (01) ==
LOC: MTLAB 07:58
PROVIDERS: PCP Internal Medicine; Referring Provider Internal Medicine; Visit Provider Internal Medicine
DX: E11.9 Type 2 diabetes mellitus without complications (principal)
CPT/HCPCS: 36415; 83036

== ENCOUNTER → 2024-03-10 | Outpatient (CLI) | payer OTHER, SELFPAY ==
[2024-03-10 17:33] LABS: Absolute Lymphocyte Count 1.68 X10^3/uL (0.83-4.51); Absolute Neutrophil Count 6.5 X10^3/uL (2.0-7.7); Basophil# 0.02 X10^3/uL; Basophil% 0.2 % (0-1); Eosinophils% 1.1 % (0-5); Hematocrit 37.6 % (37-47); Hemoglobin 11.8 g/dL (12.0-15.0); Lymphocyte # 1.68 X10^3/ul (0.83-4.51); Mean Corp Hgb Conc 31.4 g/dL (32-36); Mean Corpuscular Hgb 29.1 pg (27.0-32.0); Mean Corpuscular Volume 92.8 fL (81-99); Mean Platelet Vol. 10.3 fl (6.2-12.0); Monocyte# 0.52 X10^3/uL; Monocyte% 5.9 % (0-10); NRBC Flagged by Analyzer 0 % (0-5); Neutrophil # 6.49 X10^3/uL (2.7-7.7); Neutrophil % 73.6 % (47-70); Platelet Count 351 K/mm3 (150-450); RBC Distribution Width CV 13.8 % (11.6-14.6); RBC Distribution Width SD 46.9 fl (35.1-43.9); Red Blood Count 4.05 M/mm3 (4.2-5.4); White Blood Count 8.8 K/mm3 (4.4-11.0)
[2024-03-10 18:12] LABS: Erythrocyte Sedimentation Rate 24 mm/hr (0-30)
[2024-03-10 18:17] LABS: ALB/GLOB Ratio 0.9 RATIO (0.9-2.4); AST(SGOT) 13 U/L (15-37); Alanine Aminotransfer ALT/SGPT 23 U/L (13-56); Albumin, Serum 3.7 g/dL (3.2-5.0); Alkaline Phosphatase 78 U/L (45-117); Anion Gap 8 (5-15); BUN 33 mg/dL (7-18); BUN/Creat Ratio 34.4 RATIO (10-20); CRP < 2.90 mg/L (0.0-3.0); Calcium,Total 9.6 mg/dL (8.5-10.1); Chloride 108 mmol/L (98-107); Creatinine, Serum 0.96 mg/dL (0.55-1.02); EST Glomerular Filtration Rate 62 mL/min (>60); Est Glom Filt Rate - Afr Amer 75 mL/min (>60); Glucose 223 mg/dL (74-106); Potassium 4.1 mmol/L (3.5-5.1); Protein, Total 7.7 g/dL (6.4-8.2); Sodium Level 139 mmol/L (136-145)
== END | disposition home or self-care (01) ==
LOC: MTLAB 14:15
PROVIDERS: PCP Internal Medicine; Referring Provider Internal Medicine Rheumatology; Visit Provider Internal Medicine Rheumatology
DX: L40.59 Other psoriatic arthropathy (principal); L40.8 Other psoriasis; Z79.899 Other long term (current) drug therapy; M16.0 Bilateral primary osteoarthritis of hip; M47.892 Other spondylosis, cervical region; M47.897 Other spondylosis, lumbosacral region; I10 Essential (primary) hypertension; E78.5 Hyperlipidemia, unspecified
CPT/HCPCS: 36415; 80053; 85025; 85652; 86140

== ENCOUNTER → 2024-03-24 | Outpatient (CLI) | payer OTHER, SELFPAY ==
--- NOTE | 2024-03-24 | LES_PTH ---
PATIENT: MILIND DAWSON LOC: [facility] U#:[id number] AGE/SX: 68/F ROOM: RE03/24/[address]: Dr. Marilee Curtis DPM : 1955 BED: DIS: 03/24/2024 SPEC #: [id number] RECD: 03/24/24 14:35 STATUS: ZOIE REQ #: [id number] IAN: 03/24/24 00:[address]: Marilee Curtis DEPT: SURGICAL PATHOLOGY RECD BY: Shanel Castro ENTERED: 03/25/24 09:09 SP TYPE: Lesion OTHR DR: Dr. Danny Herrera MD Tissues: Skin of foot, NOS Procedures: Decalcification bone/plaque Surgery Specimen Level IV HEADER OPERATION: Skin biopsy evaluation PRE-OP DIAGNOSIS: Skin biopsy TISSUE SUBMITTED: Left heel MICROSCOPIC DIAGNOSIS Left heel skin, biopsy: Consistent with fragments of verruca vulgaris /plantaris. Negative for malignancy. SJ/mr 03/31/2024 COMMENT Correlation with clinical findings and appropriate follow up are necessary. Case has been reviewed in consultation with Dr. Woodard who concurs with the above diagnosis. IDC:AM MICROSCOPIC DESCRIPTION Slides are reviewed. GROSS DESCRIPTION Received in fixative is one container labeled with the patient's name and designated Left heel. The specimen consists of multiple fragments of vasquez indurated skin, soft tissue, and possible bone measuring in aggregate 2.2 x 2.0 x 0.3cm. The entire specimen is submitted in one cassette after decalcification. 03/25/2024 TC:5 CPT:18360
== END | disposition home or self-care (01) ==
PROVIDERS: PCP Internal Medicine; Referring Provider Podiatrist; Visit Provider Podiatrist
DX: B07.0 Plantar wart (principal)
CPT/HCPCS: 88305; 88311

== ENCOUNTER 2024-05-23 06:26 | Inpatient (IN) | payer OTHER, MEDICARE, SELFPAY ==
[2024-05-23] VITALS (13 sets, daily range): BP systolic 127–161; BP diastolic 60–87; PULSE 85–119; RESP 16–23; TEMP 36.2–36.9; O2SAT 93–97; BMI 32.5; BMI 32.1
--- NOTE | 2024-05-23 06:28 | CT_ITS ---
INDICATION: Neuro deficit, acute, stroke suspected EXAMINATION: CTA CAROTIDS AND BRAIN - CTA Head and Neck Stroke W/ Contrast (and W/O if performed) TECHNIQUE: Routine CTA of the head and neck was performed with post processing of the angiographic images for volumetric reconstructions. In addition, images were obtained of the [place]. Nascet criteria using the distal ICAs for comparison were used for evaluation of stenoses. 3D reconstructions were reviewed. A radiation dose optimization technique was used for this scan. IV Contrast dosage and agent: 100 mL [id number]-370 COMPARISON: MRA neck September 05, 2017. FINDINGS: --NECK: AORTIC ARCH AND BRANCHES: Normal anatomy, patent. RIGHT CCA: No occlusion, significant stenosis or dissection. RIGHT ICA: Carotid bifurcation atherosclerosis with less than 50% stenosis. No occlusion or dissection. LEFT CCA: No occlusion, significant stenosis or dissection. LEFT ICA: Carotid bifurcation atherosclerosis without flow-limiting stenosis. No occlusion or dissection. RIGHT VERTEBRAL ARTERY: No occlusion, significant stenosis or dissection. LEFT VERTEBRAL ARTERY: No occlusion, significant stenosis or dissection. NECK SOFT TISSUES: Left thyroid 1.5 cm heterogeneous nodule.. LUNG APICES: Clear. BONES: Unremarkable. --HEAD: --Anterior circulation: ICAs: Minimal bilateral cavernous carotid atherosclerosis. No significant stenosis at the intracranial/visualized segments. ACAs: No significant stenosis at the visualized segments. ACOM: Present. MCAs: No significant stenosis at the visualized segments. --Posterior circulation: PCOMs: Intact on the left. electrophysiology nurse practitioner: No significant stenosis at the visualized segments. BASILAR ARTERY: No significant stenosis. VERTEBRAL ARTERIES: No significant stenosis at the intradural/visualized segments. No evidence of intracranial aneurysm or vascular malformation. CT/STROKE CTA Head AND Neck W/Con IMPRESSION: Mild atherosclerosis most prominent at the cervical carotid bifurcations without evidence of cervical or proximal intracranial vascular occlusion or focal flow-limiting stenosis. Left thyroid 1.5 cm heterogeneous nodule. Ultrasound characterization is recommended when clinically able. N.B. : The above Results were Read Back by Fabien Pantoja MD to Fabrizio Shafer DO, and understanding confirmed on 05/23/2024 07:00:15 (ET). Electronically Signed: Fabien Pantoja MD at 7:01 EDT ,
--- NOTE | 2024-05-23 06:28 | EKG12_ITS ---
Test Reason : STROKE Blood Pressure : / mmHG Vent. Rate : 115 BPM Atrial Rate : 115 BPM P-R Int : 144 ms QRS Dur : 074 ms QT Int : 300 ms P-R-T Axes : 066 043 040 degrees QTc Int : 415 ms Sinus tachycardia Nonspecific ST abnormality Abnormal ECG Confirmed by Heriberto Wyatt ([id number]), international editorial producer BENNY ESCALERA ([id number]) on 05/24/2024 9:40:43 AM Referred By: Confirmed By:Heriberto Wyatt
--- NOTE | 2024-05-23 06:28 | RAD_ITS ---
INDICATION: Neuro deficit, acute, stroke suspected EXAMINATION/TECHNIQUE: X-RAY - XR Chest 1 View COMPARISON: May 09, 2020. FINDINGS: LINES/DEVICES: None. LUNGS: Lungs symmetrically hyperexpanded. No consolidation, edema or effusion. No pneumothorax. MEDIASTINUM AND CARDIOVASCULAR STRUCTURES: Cardiac silhouette not enlarged. BONES AND SOFT TISSUES: Unremarkable. RAD/Chest 1 View IMPRESSION: Hyperexpansion compatible with chronic obstructive pulmonary disease. No radiographic evidence of acute cardiopulmonary disease. Electronically Signed: Fabien Pantoja MD at 7:56 EDT ,
--- NOTE | 2024-05-23 06:28 | CT_ITS ---
We are attempting to reach an attending provider to discuss findings. An addendum with communication details will be sent when the communication is complete. INDICATION: Neuro deficit, acute, stroke suspected EXAMINATION: CT BRAIN - CT Head Stroke Protocol W/O Contrast Injection TECHNIQUE: Multiple axial images were obtained of the head without intravenous contrast. A radiation dose optimization technique was used for this scan. IV Contrast dosage and agent: None. COMPARISON: September 06, 2017 FINDINGS: BRAIN PARENCHYMA: No intra- or extra-axial hemorrhage. No evidence of acute infarct. No intracranial mass or mass effect. Unremarkable white matter for age. There is preservation of the alcala/white matter interface. Posterior fossa structures are unremarkable. CSF SPACES: Cerebral volume appropriate for age. No hydrocephalus. Basal cisterns are patent. CALVARIUM, SKULL BASE, PARANASAL SINUSES AND MASTOID AIR CELLS: No acute osseous finding. Paransasal sinuses are clear. Mastoid air cells are clear. ORBITS: Both globes, extraocular muscles, optic nerves and retrobulbar fat appear unremarkable. ASPECTS Score for Acute Strokes: 10 CT/STROKE Brain/Head without Cont IMPRESSION: No CT evidence of acute intracranial hemorrhage or injury Electronically Signed: Fabien Pantoja MD at 6:45 EDT Reading Location ID and State: [id number] / [place] Tel , Service support ,
[2024-05-23 06:36] LABS: Absolute Lymphocyte Count 4.13 X10^3/uL (0.83-4.51); Absolute Neutrophil Count 4.5 X10^3/uL (2.0-7.7); Basophil# 0.06 X10^3/uL; Basophil% 0.6 % (0-1); Eosinophil# 0.39 X10^3/uL; Eosinophils% 3.9 % (0-5); Hematocrit 38.9 % (37-47); Hemoglobin 11.8 g/dL (12.0-15.0); Lymphocyte # 4.13 X10^3/ul (0.83-4.51); Lymphocyte % 41.1 % (19-41); Mean Corp Hgb Conc 30.3 g/dL (32-36); Mean Corpuscular Hgb 28.5 pg (27.0-32.0); Mean Platelet Vol. 9.8 fl (6.2-12.0); Monocyte# 0.92 X10^3/uL; Monocyte% 9.2 % (0-10); NRBC Flagged by Analyzer 0 % (0-5); Neutrophil # 4.47 X10^3/uL (2.7-7.7); Neutrophil % 44.4 % (47-70); Platelet Count 330 K/mm3 (150-450); RBC Distribution Width CV 14.2 % (11.6-14.6); RBC Distribution Width SD 49.1 fl (35.1-43.9); Red Blood Count 4.14 M/mm3 (4.2-5.4); White Blood Count 10.1 K/mm3 (4.4-11.0)
[2024-05-23 06:44] LABS: Partial Thromboplast Time 25.5 Seconds (24.1-36.2)
[2024-05-23 06:50] LABS: Anion Gap 9 (5-15); BUN 33 mg/dL (7-18); BUN/Creat Ratio 32.7 RATIO (10-20); Calcium,Total 9.7 mg/dL (8.5-10.1); Chloride 108 mmol/L (98-107); Creatinine, Serum 1.01 mg/dL (0.55-1.02); EST Glomerular Filtration Rate 58 mL/min (>60); Est Glom Filt Rate - Afr Amer 70 mL/min (>60); Estimated Creatinine Clearance 51.09 ml/min; Glucose 173 mg/dL (74-106); Potassium 3.8 mmol/L (3.5-5.1); Sodium Level 139 mmol/L (136-145)
--- NOTE | 2024-05-23 07:13 | ED.RN ---
[address] of the head,[facility] was called and spoke to Dr Shafer. Daughters at the bedside. Pts daughter expressed anger that her was a pt here once and was sent home and told there was nothing wrong. She said that we made her and feel like we crazy. Pt states she took him to the [facility] and he was dx with stroke. Empathy given. Encourage to speak to MD about any concerns.
--- NOTE | 2024-05-23 07:31 | HP.PCM.HOS_ITS ---
HPI - General General Date of Admission: 05/23/24 Date of Service: 05/23/24 Chief Complaint: altered MS/R facial droop and R sided weakness HPI Narrative MILIND DAWSON, is a 69 F who presented to the emergency department at [facility] early on the a.m. of 05/23/2024 after experiencing an episode of altered mental status with rapidly resolving right-sided weakness and right facial droop. Patient does have a previous history of of seizure disorder with first seizure being in 2018. This was attributed to Ultram use. She had 2 other events both were here after she had a stress test so they were attributed to medication involved with her stress test at that time. She was placed on an AED with Keppra for about a year after that event and this was discontinued subsequently by neurology as she had no further events and they felt that they were induced by the above. Today, the stated that he had gotten up early and heard noises coming from the the area where she sleeps. She does sleep sitting up in a chair. He initially thought it was snoring but then realized it sounded like gurgling and he rushed in to check on her. At that time, she was altered mentally and slowly became more arousable but remained confused. Her daughter stated on her arrival she was awake but it was almost like no one was home. Her son indicated this was very similar to previously after she had had seizures. No one observed any generalized tonic-clonic movements as the event itself seems to be unwitnessed. When EMS arrived she was also becoming more arousable but was noted to have some right facial droop and right sided weakness. She does have considerable weakness at baseline due to psoriatic arthritis and is fairly not mobile at baseline. By the time she arrived her strength was back to baseline and her facial droop had resolved. Vital signs on presentation showed a temperature of 98, heart rate 118, blood pressure was 154/73, respiratory was 20 and pulse ox was 93% on 3 L nasal cannula. Patient does not typically wear oxygen at baseline. CBC showed a normal white count with a mild stable anemia with a hemoglobin of 11.8 and no left shift but she does have lymphocytosis. Coags were normal. Chemistry panel was overtly unremarkable other than hyperglycemia with a blood sugar of 173. Hemoglobin A1c was performed and found to be 7.2. With concern for stroke we obtained a lipid panel with total cholesterol of 268/LDL of 173/HDL 54 and triglycerides of 207. TSH is within normal limits 2.47. EKG was normal sinus rhythm without any ST-T wave changes concerning for acute ischemia and only mild prolonged QTc at less than 500. CT of the brain was unremarkable for any acute finding. CTA of the head and neck showed only mild atherosclerotic disease of bilateral carotid arteries as well as a 1.5 cm heterogeneous nodule of the thyroid. Chest x-ray is performed and showed hyperexpansion is compatible with COPD however upon my individual review was questionable for a right lower lobe infiltrate. She does have a wound that has been being evaluated on her left foot so we did get an x-ray because there is a lot of superficial callus and imaging showed subcutaneous emphysema volar to the calcaneus consistent with an ulcer but no evidence of erosive lesion in the calcaneus, osteopenia but no fracture or suspicious lesion. [facility] Medical History Hyperlipidemia Type 2 diabetes mellitus Blood glucose elevated Preventative health care Acute pain of both ears Tachycardia Impacted cerumen, right ear Health care maintenance Anemia Osteoporosis Psoriatic arthritis Arthritis History of seizures Hypertension Home Medications ?Medication ?Instructions ?Recorded ?Last Taken ?Type acetaminophen 325 mg tablet 650 mg (2 x 325 mg) PO Q4H PRN PRN 09/08/17 Unknown Rx Headache/Temp>99F secukinumab 150 mg/mL subcutaneous 300 mg subcut Q4W 12/25/21 Unknown History syringe (Cosentyx) lisinopril 30 mg tablet See Rx Instructions .Route 01/19/24 Unknown Rx .COMPLEX #90 tabs prednisone 5 mg tablet See Rx Instructions .Route 01/19/24 Unknown Rx .COMPLEX #90 tabs Allergy/AdvReac Type Severity Reaction Status Date / Time tramadol Allergy Severe seizures Verified 05/23/24 06:56 adalimumab (From Humira) Allergy Unknown unknown Verified 05/23/24 06:56 apremilast (From Otezla) Allergy Unknown unknown Verified 05/23/24 06:56 infliximab (From Remicade) Allergy Unknown unknown Verified 05/23/24 06:56 infliximab-dyyb (From AdvReac Unknown unknown Verified 05/23/24 06:56 Inflectra) leflunomide (From Arava) AdvReac Other Verified 05/23/24 06:56 methotrexate (Methotrexate) AdvReac Other Verified 05/23/24 06:56 sulfasalazine (Sulfasalazine) AdvReac Other Verified 05/23/24 06:56 Family History Father Myocardial infarction Surgical History S/P foot surgery History of cataract surgery Social History Smoking Status: Never smoker alcohol intake: never substance use type: does not use what type of physical activity do you participate in: none ROS Constitutional Constitutional: Reports fatigue and weakness; Denies anorexia, change in weight, chills, fever(s), malaise, night sweats or other Eyes Eyes: Denies blurry vision, change in eye color, change in vision, discharge from eye(s), double vision, erythema, eye pain, loss of vision or other ENT HEENT: Denies abnormal hearing, dysphagia, ear pain, epistaxis, headache(s), hearing loss, nasal congestion, nasal discharge, post nasal drip, sinus pressure, sore throat or other Cardiovascular Cardiovascular: Denies chest pain, claudication, dyspnea on exertion, edema, lightheadedness, orthopnea, palpitations, paroxysmal nocturnal dyspnea, rapid heart rate, syncope or other Respiratory/Chest Respiratory/Chest: Denies cough, dyspnea, excessive phlegm production, hemoptysis, productive cough, shortness of breath at rest, shortness of breath with exertion, wheezing or other Gastrointestinal Gastrointestinal: Denies abdominal pain, coffee ground emesis, constipation, diarrhea, dyspepsia, hematemesis, hematochezia, loose stools, melena, nausea, vomiting or other Genitourinary Genitourinary: Denies burning urination, difficulty urinating, dysuria, hematuria, nocturia, urinary frequency, urinary hesitancy, urinary incontinence, urinary urgency or other Musculoskeletal Musculoskeletal: Reports arthralgias, joint pain, joint stiffness and myalgias; Denies back pain, joint swelling, neck pain or other Neurologic Neurologic: Reports abnormal gait, confusion, focal weakness and seizures; Denies abnormal speech, disequilibrium, dizziness, headache(s), numbness, paresthesias, seizure-like activity, syncope, tingling, tremor(s) or other Psychiatric Psychiatric: Reports anxiety and depression; Denies homicidal ideation, suicidal ideation or other Endocrine Endocrinology: Denies change in body appearance, cold intolerance, excessive sweating, heat intolerance, polydipsia, polyuria or other Hematologic/Lymphatic Hematologic/Lymphatic: Denies anemia, easy bleeding, easy bruising, lymphadenopathy or other Allergic/Immunologic Allergic/Immunologic: Denies rhinitis, hives, eczemia, asthma or other Vital Signs Vital Signs Vital Signs: 05/23/24 06:28 05/23/24 06:28 05/23/24 06:43 Temperature 98.0 F Temperature Source Temporal Pulse Rate 119 H 111 H Respiratory Rate 20 H 23 H Blood Pressure 154/73 H 139/73 H Blood Pressure Mean 100 95 Pulse Ox 93 97 Oxygen Delivery Method Nasal Cannula Nasal Cannula Nasal Cannula Oxygen Flow Rate (L/min) 2 2 05/23/24 06:51 05/23/24 06:58 Temperature 98.0 F Temperature Source Oral Pulse Rate 111 H 111 H Respiratory Rate 20 H 18 Blood Pressure 154/73 H 148/76 H Blood Pressure Mean 100 100 Pulse Ox 93 93 Oxygen Delivery Method Room Air Nasal Cannula Oxygen Flow Rate (L/min) 2 Weight Weight: 78 kg Body Mass Index (BMI) 32.5 Physical Exam Const alert, oriented x3 and no apparent distress; Negative for average body habitus or healthy appearing Constitutional Narrative: Obese, upper middle-aged, white female, lying in bed, appears older than stated age, multiple family members at bedside, appears comfortable, nontoxic General Appearance: cooperative HEENT normocephalic, head/scalp atraumatic, hearing grossly normal bilaterally and moist oral mucous membranes HEENT Narrative: Dentition is poor, Mallampati is 2, no thrush Eyes PERRL, EOMs intact bilaterally and conjunctivae normal Eyes Narrative: No scleral icterus Neck no lymphadenopathy and supple Neck Narrative: Trachea midline, no significant thyroid enlargement Resp normal respiratory effort, no retractions, no use of accessory muscles and clear to auscultation bilaterally Auscultation: Negative for rales, rhonchi or wheezes Cardio regular rate, regular rhythm, S1 normal heart sound, S2 normal heart sound, no murmurs, no rub, no gallops and no clicks GI normal to inspection, nondistended, normoactive bowel sounds, soft to palpation and non-tender Extremity no clubbing, cyanosis or edema Extremity Narrative: Pedal pulses are 2+, radial pulses are 2+ Skin Skin Narrative: Wound on left medial heel that is linear, no surrounding erythema, no drainage not even with palpation of the surrounding area, no subcu emphysema palpated Neuro oriented x3 Neuro Narrative: Marked generalized weakness but no focal deficits at the time of my evaluation, no sensory deficits, limited movement bilaterally upper and lower extremity due to medical history of psoriatic arthritis Speech: speech normal Psych affect normal Psych Narrative: Eye contact is good and patient interacts appropriately Mood & Affect: anxious Results Lab / Micro Data 05/23/24 06:30 05/23/24 06:30 Labs: Laboratory Results - last 24 hr 05/23/24 06:30: WBC 10.1, RBC 4.14 L, Hgb 11.8 L, Hct 38.9, MCV 94.0, MCH 28.5, MCHC 30.3 L, RDW Std Deviation 49.1 H, RDW Coeff of Raji 14.2, Plt Count 330, MPV 9.8, Immature Gran % (Auto) 0.800, Neut % (Auto) 44.4 L, Lymph % (Auto) 41.1 H, [place] % (Auto) 9.2, Eos % (Auto) 3.9, Baso % (Auto) 0.6, Absolute Neuts (auto) 4.5, Absolute Lymphs (auto) 4.13, Nucleated RBC % 0, PT 13.0, INR 1.0, APTT 25.5, Sodium 139, Potassium 3.8, Chloride 108 H, Carbon Dioxide 22.0, Anion Gap 9, BUN 33 H, Creatinine 1.01, Estim Creat Clear Calc 51.09, Est GFR (MDRD) Af Amer 70, Est GFR (MDRD) Non-Af 58 L, BUN/Creatinine Ratio 32.7 H, Glucose 173 H, Calcium 9.7 Imaging Radiology Impression Brain CT 05/23/24 06:28 IMPRESSION: No CT evidence of acute intracranial hemorrhage or injury Electronically Signed: Fabien Pantoja MD at 6:45 EDT , ADDENDUM: 05/23/24 0654 IMPRESSION: No CT evidence of acute intracranial hemorrhage or injury N.B. : The above Results were Read Back by Fabien Pantoja MD to Fabrizio Shafer DO and understanding confirmed on 05/23/2024 06:47:48 (ET). Electronically Signed: Fabien Pantoja MD at 6:45 EDT , Head/Neck CTA 05/23/24 06:28 IMPRESSION: Mild atherosclerosis most prominent at the cervical carotid bifurcations without evidence of cervical or proximal intracranial vascular occlusion or focal flow-limiting stenosis. Left thyroid 1.5 cm heterogeneous nodule. Ultrasound characterization is recommended when clinically able. N.B. : The above Results were Read Back by Fabien Pantoja MD to Fabrizio Shafer DO and understanding confirmed on 05/23/2024 07:00:15 (ET). Electronically Signed: Fabien Pantoja MD at 7:01 EDT , ADDENDUM: 05/23/24 0708 IMPRESSION: Mild atherosclerosis most prominent at the cervical carotid bifurcations without evidence of cervical or proximal intracranial vascular occlusion or focal flow-limiting stenosis. Left thyroid 1.5 cm heterogeneous nodule. Ultrasound characterization is recommended when clinically able. N.B. : The above Results were Read Back by Fabien Pantoja MD to Fabrizio Shafer DO and understanding confirmed on 05/23/2024 07:00:15 (ET). Electronically Signed: Fabien Pantoja MD at 7:01 EDT , Assessment & Plan Assessment/Plan (1) Facial droop: (2) Right sided weakness: (3) Altered mental status: (4) Hypoxia: (5) Seizure disorder: (6) Aspiration pneumonia: (7) Open wound of heel: (8) Thyroid nodule: PLAN: Plan Altered mental status/right facial droop/right-sided weakness -Based on history highly suspect recurrent seizure with postictal state and Gabriel's paralysis -All symptoms are currently resolved -Seizure precautions with as needed Ativan available for any seizure activity -Patient previously reacted poorly to Keppra so we will utilize Topamax 25 mg p.o. twice daily as AED for now -Has had at least 3 previous seizures and was on previous AED but stopped in 2019 by neurology -The seizures were felt to be precipitated by medication however no recent medication changes -Check MRI with and without contrast due to suspected seizure activity -EEG -Will check echo -TSH within normal limits -Start aspirin -Start statin -A1c and lipid panel have been performed -Monitor NIH is since she came in as a stroke team -Neurology consult Hypoxia -Highly suspect possible aspiration pneumonitis versus pneumonia -COVID/flu/RSV negative -Strep pneumo and Legionella antigen negative -Start Unasyn to cover for possible aspiration -Currently requiring 2 L nasal cannula -Wean as able -Patient is a never smoker Open heel left wound -Imaging shows subcu emphysema however she does have an open wound so likely related that next-no signs of infection whatsoever -Follows as an outpatient with podiatry -Monitor closely for any signs of infection that could develop and recommend outpatient follow-up -Wound care consulted Hyperlipidemia -With the above lipid panel was obtained and patient found to have markedly uncontrolled lipids -Continue statin and would recommend discharge with statin based on current lipid panel DM-2 -A1c was 7.2 -Recommend diet control and close outpatient follow-up -Consult dietitian for diabetic education 1.5 cm thyroid nodule TSH within normal limits -Recommend outpatient follow-up for thyroid ultrasound Essential hypertension -Continue home lisinopril Psoriatic arthritis -Continue home prednisone -Outpatient Cosentyx -Outpatient follow-up with rheumatology Chronic debility and weakness -Outpatient follow-up -Likely related to her underlying autoimmune disorder Obesity -BMI is 32.2 -recommend weight loss -complicates treatment, prognosis, outcomes DVT prophylaxis -Lovenox subcu daily CODE STATUS Full code as verified prior to admission Charges/Coding Visit Charges Inpatient E&M: 57633 Init Hosp L3
[2024-05-23 07:34] LABS: Magnesium 2.2 mg/dL (1.6-2.6)
--- NOTE | 2024-05-23 07:36 | EDS_ITS ---
HPI History of Present Illness Chief Complaint: Stroke Alert Informant: patient, spouse/S.O. and EMS Narrative Narrative: Patient is a 69-year-old female with history of of type 2 diabetes arthritis and hypertension. According to family she sleeps in a recliner secondary to her arthritis and is not very mobile secondary to it as well. states that the patient went to bed around 9 PM and that was her last known well. He states that she was sleeping out of the recliner and he was in the other room when he heard her start to gargle. He states he went out to check on her because of this abnormal sound and did not when is any type of seizure-like activity but the patient was unresponsive and he could not wake her up despite saying her name and trying to shake her. Secondary to this EMS was called. EMS states when they arrived the patient's eyes were open but she was not responding and she appeared to have right sided facial droop and right sided weakness. Family states that the patient has not been on any type of new medication and prior to this morning's event has been at her baseline [facility] Medical History (Updated 05/23/24 @ 07:[address] Fabrizio Shafer, DO) Hyperlipidemia Type 2 diabetes mellitus Blood glucose elevated Preventative health care Acute pain of both ears Tachycardia Impacted cerumen, right ear Health care maintenance Anemia Osteoporosis Psoriatic arthritis Arthritis History of seizures Hypertension Home Medications ?Medication ?Instructions ?Recorded ?Last Taken ?Type acetaminophen 325 mg tablet 650 mg (2 x 325 mg) PO Q4H PRN PRN 09/08/17 Unknown Rx Headache/Temp>99F secukinumab 150 mg/mL subcutaneous 300 mg subcut Q4W 12/25/21 Unknown History syringe (Cosentyx) lisinopril 30 mg tablet See Rx Instructions .Route 01/19/24 Unknown Rx .COMPLEX #90 tabs prednisone 5 mg tablet See Rx Instructions .Route 01/19/24 Unknown Rx .COMPLEX #90 tabs Allergy/AdvReac Type Severity Reaction Status Date / Time tramadol Allergy Severe seizures Verified 05/23/24 06:56 adalimumab (From Humira) Allergy Unknown unknown Verified 05/23/24 06:56 apremilast (From Otezla) Allergy Unknown unknown Verified 05/23/24 06:56 infliximab (From Remicade) Allergy Unknown unknown Verified 05/23/24 06:56 infliximab-dyyb (From AdvReac Unknown unknown Verified 05/23/24 06:56 Inflectra) leflunomide (From Arava) AdvReac Other Verified 05/23/24 06:56 methotrexate (Methotrexate) AdvReac Other Verified 05/23/24 06:56 sulfasalazine (Sulfasalazine) AdvReac Other Verified 05/23/24 06:56 Family History Father Myocardial infarction Surgical History (Updated 05/03/24 @ 08:13 by Marilee Johnson MA) S/P foot surgery History of cataract surgery Social History Smoking Status: Never smoker alcohol intake: never substance use type: does not use what type of physical activity do you participate in: none ROS ROS ED Constitutional Constitutional ED: Denies chills or fever(s) Eyes Eyes: Denies change in vision ENT ENT ED: Denies sore throat Cardiovascular Cardiovascular: Denies chest pain or palpitations Respiratory/Chest Respiratory/Chest: Denies cough or dyspnea Gastrointestinal Gastrointestinal: Denies abdominal pain, diarrhea, nausea or vomiting Genitourinary Genitourinary ED: Denies dysuria Musculoskeletal Musculoskeletal: Reports back pain and myalgias Integumentary Denies rash Neurologic Neurologic: Denies headache(s) Hematologic/Lymphatic Hematologic/Lymphatic: Denies easy bleeding or easy bruising EXAM Physical Exam Const Vital Signs: 05/23/24 06:28 05/23/24 06:28 05/23/24 06:43 Temperature 98.0 F Temperature Source Temporal Pulse Rate 119 H 111 H Respiratory Rate 20 H 23 H Blood Pressure 154/73 H 139/73 H Blood Pressure Mean 100 95 Pulse Ox 93 97 Oxygen Delivery Method Nasal Cannula Nasal Cannula Nasal Cannula Oxygen Flow Rate (L/min) 2 2 05/23/24 06:51 05/23/24 06:58 Temperature 98.0 F Temperature Source Oral Pulse Rate 111 H 111 H Respiratory Rate 20 H 18 Blood Pressure 154/73 H 148/76 H Blood Pressure Mean 100 100 Pulse Ox 93 93 Oxygen Delivery Method Room Air Nasal Cannula Oxygen Flow Rate (L/min) 2 Positive well nourished and well developed General Appearance ED: well developed; Negative for pallor HEENT HEENT Narrative: Normocephalic atraumatic No tongue or cheek biting noted No signs of infection noted in the posterior pharynx Eyes PERRL and EOMs intact bilaterally General Eye ED: Negative for scleral icterus Neck supple Neck Narrative: No nuchal rigidity or meningeal signs Chest Wall palpation of chest normal Resp Resp Narrative: Breath sounds are diminished throughout with faint rhonchi noted in the right lower lobe. There is slight tachypnea noted. No nasal flaring or retractions. No stridor present. Cardio regular rhythm Rate: tachycardic and other Other Details: Tachycardic rate with regular rhythm Radial and carotid pulses are equal and symmetric GI normal to inspection, nondistended, normoactive bowel sounds, non-tender, non- distended and no masses GI Narrative: No voluntary guarding or rigidity or pulsatile mass Auscultation: normoactive bowel sounds Palpation: soft Extremity normal to inspection Extremity Narrative: No asymmetric edema Negative Homans' sign bilaterally Neuro Neuro Narrative: Patient arrived to the ER with a GCS of 15 as she is awake and alert but there was right sided facial droop noted along with mild right arm weakness. There is no obvious truncal ataxia. Patient received NIH stroke scale score of 2 secondary to the mild right sided facial droop and mild right arm weakness. Otherwise she is awake alert and oriented person place and time without derangement to mental status or loss of sensation. Psych mental status grossly normal Skin no rashes or lesions noted General Skin Exam: Negative for jaundice or pallor MDM MDM MDM Narrative Medical decision making narrative: Family reported that the patient was breathing spontaneously but unresponsive at home and when EMS arrived they noted that she was slightly more responsive than what family reported but still not following commands and they did feel that there was right-sided weakness with facial droop. When she arrived to the ER she was now awake and alert but prior to going to CT scan there was still mild facial droop and right arm weakness noted giving her stroke scale score of 2. A CT CTA were obtained secondary to her reported symptoms. CT revealed no signs of acute bleed and CTA revealed no significant stenosis or large vessel occlusion. As the patient's last known well was 9 PM and this to be considered a wake-up stroke she is well outside to the anticoagulation window and therefore TNK was not provided. [facility] neurology was contacted secondary to the stroke alert and agree there is no need for TNK as she is outside the window. However as there is no obvious stenosis or LVO there is no need to transfer and she can be kept at our facility for further workup. The patient was also hypoxic upon arrival and has no history of lung pathology or need for supplemental oxygen. Her x-ray shows mild haziness in the right lower lobe which could correlate with potential aspiration as family did hear a gurgling at the time she was found unresponsive. Secondary to his Unasyn was started to cover for aspiration pneumonia. Patient also has remote history of seizure activity which could have been the cause of her symptoms this morning with a postictal phase and/or Gabriel's paralysis. Therefore this time as the patient will need admitted to further workup regarding potential seizure versus TIA versus aspiration pneumonia medicine was contacted and they do agree to accept the patient at this time. History & Record Review Discussion w/independent historian: EMS personnel, Patient and Family Lab Data Attestation: I reviewed the patient's lab results. Labs: Laboratory Results - last 24 hr 05/23/24 06:30 WBC 10.1 RBC 4.14 L Hgb 11.8 L Hct 38.9 MCV 94.0 MCH 28.5 MCHC 30.3 L RDW Std Deviation 49.1 H RDW Coeff of Raji 14.2 Plt Count 330 MPV 9.8 Immature Gran % (Auto) 0.800 Neut % (Auto) 44.4 L Lymph % (Auto) 41.1 H Reynolds % (Auto) 9.2 Eos % (Auto) 3.9 Baso % (Auto) 0.6 Absolute Neuts (auto) 4.5 Absolute Lymphs (auto) 4.13 Nucleated RBC % 0 PT 13.0 INR 1.0 APTT 25.5 Sodium 139 Potassium 3.8 Chloride 108 H Carbon Dioxide 22.0 Anion Gap 9 BUN 33 H Creatinine 1.01 Estim Creat Clear Calc 51.09 Est GFR (MDRD) Af Amer 70 Est GFR (MDRD) Non-Af 58 L BUN/Creatinine Ratio 32.7 H Glucose 173 H Calcium 9.7 Magnesium 2.2 Radiography Diagnostic Testing: Clinical Impression(s) from Imaging Studies Brain CT 05/23/24 06:28 IMPRESSION: No CT evidence of acute intracranial hemorrhage or injury Electronically Signed: Fabien Pantoja MD at 6:45 EDT Reading Location ID and State: [facility] / [place] Tel , Service support , ADDENDUM: 05/23/24 0654 IMPRESSION: No CT evidence of acute intracranial hemorrhage or injury N.B. : The above Results were Read Back by Fabien Pantoja MD to Fabrizio Shafer DO, and understanding confirmed on 05/23/2024 06:47:48 (ET). Electronically Signed: Fabien Pantoja MD at 6:45 EDT Reading Location ID and State: [facility] / [place] Tel , Service support , Head/Neck CTA 05/23/24 06:28 IMPRESSION: Mild atherosclerosis most prominent at the cervical carotid bifurcations without evidence of cervical or proximal intracranial vascular occlusion or focal flow-limiting stenosis. Left thyroid 1.5 cm heterogeneous nodule. Ultrasound characterization is recommended when clinically able. N.B. : The above Results were Read Back by Fabien Pantoja MD to Fabrizio Shafer DO, and understanding confirmed on 05/23/2024 07:00:15 (ET). Electronically Signed: Fabien Pantoja MD at 7:01 EDT Reading Location ID and State: [facility] / [place] Tel , Service support , ADDENDUM: 05/23/24 0708 IMPRESSION: Mild atherosclerosis most prominent at the cervical carotid bifurcations without evidence of cervical or proximal intracranial vascular occlusion or focal flow-limiting stenosis. Left thyroid 1.5 cm heterogeneous nodule. Ultrasound characterization is recommended when clinically able. N.B. : The above Results were Read Back by Fabein Pantoja MD to Fabrizio Shafer DO and understanding confirmed on 05/23/2024 07:00:15 (ET). Electronically Signed: Fabien Pantoja MD at 7:01 EDT Reading Location ID and State: [facility] / [place] Tel , Service support , Chest x-ray as interpreted by the emergency medicine physician reveals haziness in the right lower lobe concerning for developing pneumonia Discharge Plan Triage Chief Complaint: Stroke Alert ED Provider: Fabrizio Shafer Dx/Rx/DC Orders Clinical Impression: Hypoxia, Aspiration pneumonia, TIA (transient ischemic attack), Hypertension, Type 2 diabetes mellitus Prescriptions: No Action Cosentyx 150 mg/mL syringe 300 mg subcut Q4W Rx Instructions: start 4 wks after last weekly dose;inject [id number] doses each in different thigh/upper arm/abdominal areas. last took in March acetaminophen 325 MG tablet 650 mg PO Q4H PRN PRN (Reason: Headache/Temp>99F) 0RF prednisone 5 mg tablet See Rx Instructions .ROUTE .COMPLEX Qty: 90 0RF Dose Instruction: TAKE 1 TABLET BY MOUTH EVERY DAY Rx Instructions: TAKE 1 TABLET BY MOUTH EVERY DAY lisinopril 30 mg tablet See Rx Instructions .ROUTE .COMPLEX Qty: 90 0RF Dose Instruction: TAKE 1 TABLET BY MOUTH EVERY DAY Rx Instructions: TAKE 1 TABLET BY MOUTH EVERY DAY Primary Care Provider: Danny Herrera Referrals: Danny Herrera MD [Primary Care Provider] - Print Language: Chilean Disposition Disposition: Acute Care Hospital [facility]
--- NOTE | 2024-05-23 07:44 | ECHOD_ITS ---
Reason For Study: tia/stroke Procedure This was a 2D Doppler, Color Flow transthoracic echocardiogram. Exam performed in department. Left Ventricle Normal LV size. Left ventricular systolic function is normal. The left ventricular ejection fraction is 70 %. Stage 2 diastolic dysfunction. No regional wall motion abnormalities noted. Right Ventricle Normal RV size. Normal systolic function. Atria Normal left atrium. Normal right atrium. Tricuspid Valve Normal tricuspid valve. Aortic Valve Normal aortic valve. Pulmonic Valve The pulmonic valve is not well visualized. Great Vessels Normal aortic root. Pericardium/Pleural No pericardial effusion. MMode/2D Measurements & Calculations LVIDd: 3.7 cm IVSd: 1.00 cm Ao root diam: 2.7 cm LVIDs: 2.0 cm LVPWd: 1.2 cm FS: 44.7 % LAV(MOD-sp4): 24.9 ml LVAd ap4: 19.4 cm2 SV(MOD-sp4): 30.9 ml LVLd ap4: 7.4 cm EDV(MOD-sp4): 42.7 ml EDV(sp4-el): 43.1 ml LVAs ap4: 8.8 cm2 LVLs ap4: 6.1 cm ESV(MOD-sp4): 11.7 ml ESV(sp4-el): 10.9 ml EF(MOD-sp4): 72.5 % EF(sp4-el): 74.8 % SV(sp4-el): 32.2 ml LA dimension(2D): 3.4 cm LA A4 area: 12.3 cm2 RA A4 area: 8.1 cm2 Time Measurements MV dec time: 0.13 sec Doppler Measurements & Calculations MV E max junior: 84.4 cm/sec Lat Peak E' Junior: 8.2 cm/sec Med Peak E' Junior: 6.8 cm/sec MV A max junior: 78.0 cm/sec E/E' lat: 10.2 E/E' med: 12.4 MV E/A: 1.1 MV V2 max: 84.9 cm/sec Ao V2 max: 144.3 cm/sec MV max P.9 mmHg MV dec slope: 648.8 cm/sec2 Ao max P.3 mmHg MV V2 mean: 59.4 cm/sec Ao V2 mean: 100.9 cm/sec MV mean P.6 mmHg Ao mean P.4 mmHg MV V2 VTI: 17.9 cm Ao V2 VTI: 26.5 cm AV (velocity ratio): 0.71 LV V1 max: 115.7 cm/sec PA V2 max: 119.6 cm/sec LV V1 max P.4 mmHg PA V2 mean: 85.3 cm/sec LV V1 mean P.1 mmHg LV V1 mean: 83.5 cm/sec LV V1 VTI: 18.7 cm ECHO/Echo Complete Interpretation Summary Normal LV size. Left ventricular systolic function is normal. The left ventricular ejection fraction is 70 %. Stage 2 diastolic dysfunction. Ordering Physician: Jaqui Carey Referring Physician: Danny Herrera Performed By: Chichi Giron and Student
[2024-05-23] MEDS: Ampicillin/Sulbactam 3 GM in 0.9% Normal Saline (100mL MB+) 100 ML IV ×2 (08:07→17:23)
--- NOTE | 2024-05-23 08:11 | ED.RN ---
[id number] this nurse in room talking with family and answering questions, pt verbalizes understanding of plan and processes [phone] dr chanel at beside evaluating and talking with family.
--- NOTE | 2024-05-23 08:53 | RAD_ITS ---
STUDY: X-RAY - LEFT FOOT CLINICAL: Female, 69 years old. Left heel ulcer TECHNIQUE: 2 view(s) of the foot. COMPARISON: None. FINDINGS: The bones are diffusely demineralized. Degenerative arthrosis noted at all visualized joint spaces. No subchondral erosions at the joint spaces. No demonstrated fracture or suspicious osseous lesion. There is generalized soft tissue swelling and evidence of subcutaneous emphysema volar to the calcaneus consistent with an ulcer, but there is no evidence of cortical irregularity or breakthrough in the calcaneus. RAD/Foot 2 Views IMPRESSION: Subcutaneous emphysema volar to the calcaneus consistent with a ulcer but there is no evidence of erosive lesion in the calcaneus. Osteopenia with polyarticular arthrosis No demonstrated fracture or suspicious osseous lesion Electronically Signed: Rip Goodman MD at 9:44 EDT ,
[2024-05-23 08:58] LABS: Hemoglobin A1c 7.2 % (3.8-5.6)
[2024-05-23 09:44] LABS: Cholesterol 268 mg/dL (200); High Density Lipoprotein 54 mg/dL; Triglycerides 207 mg/dL; Very Low Density Lipoprotein 41 mg/dL (5-40)
[2024-05-23] MEDS: Topiramate 25 MG Tablet PO ×2 (10:43→21:22)
[2024-05-23] MEDS: predniSONE 5 MG Tablet PO (10:43)
[2024-05-23] MEDS: Enoxaparin 40 MG/0.4 ML Syringe SC (10:43)
[2024-05-23] MEDS: Aspirin 81 MG TAB.CHEW PO (11:48)
[2024-05-23 12:30] LABS: Bedside Glucose 199 mg/dL (74-106)
[2024-05-23 16:52] LABS: Bedside Glucose 176 mg/dL (74-106)
--- NOTE | 2024-05-23 20:19 | NEURO.CONS ---
Assessment and Plan: Neuro Assessment/Plan MILIND DAWSON is a 69 F with a past medical history of seizure, being evaluated by Teleneurology for episode of altered mental status and right sided facial droop and weakness. We doubt TIA or stroke here though MRI is appropriate and should be obtrained her before discharge, along with EEG - could also offer insight into etiology if this was in fact a seizure. We cannot be certain this was a seizure, but the ictal grunt/cry, the post-ictal confusion, the history of seizures all point in this direction. If this was a seizure we cannot call it a breakthrough (she was not on an AED) but she certainly would meet criteria for epilepsy or seizure disorder at this point. Seizure could have been precipitated by a minor infection or metabolic derangement. REgardless of etiology, she shoudl re-establish care with a local neurologist and should be on a broad spectrum ASD till then: topiramate is not the most common choice but given her difficulty tolerating keppra in the past and given her very significant biologic/immunosuppressant regimen, topiramate is a reasonable choice, especially since there is no acute need to load her - she has returned to baseline and was never in status. Topiramate can be uptitrated until she sees outpatient neurologist. We will review MRI and EEG results tomorrow - barring significant findings there she can be discharged with outpatient follow up. Diagnosis: seizure disorder Plan: - amb referral to local neurologist to establish care - increase topiramate to 50 mg BID after 1 week, then 75 mg BID after 1 week, then 100 mg BID after 1 week - MRI inpatient as ordered I personally attended this patient and spent a total time of 40 minutes evaluating this patient including clinical assessment, review of chart, medical history imaging, and determining appropriate treatment and workup. Hardeep Helms MD Technology Program Manager [facility] HPI Consult Data Date of Consult: 05/23/24 HPI Narrative HPI Narrative: MILIND DAWSON, is a 69 F who presents after episode of altered mental status with brief RS weakness and facial droop. She has in the past been diagnosed with seizure and treated for seizure disorder with Keppra for a year (she had significant mood problems with this, a known Keppra SE) but this was discontinued by Neurology and she has for years been off Keppra with no seizure recurrence and blames seizures 2 and 3 on medical interventions, allowing only that her initial seizure may have been unprompted (she does not believe the tramadol caused it, though I note this is a well-established SE of tramadol). In this context, in the early AM of 05/23/2024: She remembers none of the event, just waking up in the hospital. However, provides history: She was sleeping in her chair (as usual) when noted strange noises from her. He checked on her and noted she was altered and difficult to arouse. Per chart, EMS noted facial droop - patient and family are both skeptical that this was significant. We do note significant pain limitating in upper extreity movement due to psoriatic arthritis. Given resolution of deficits she was a not a candidate for acute stroke intervention. MRI Brain was ordered, and will be completed 03/24. EEG was ordered and was completed 05/23 (read pending). She feels back to herself. She had already been placed on topiramate 25 mg BID when I met her - I do note that many common broad spectrum ASDs would not be compatible with her regimen of psoriatic arthritis biologicals and immunosuppressants. [facility] Medical History Hyperlipidemia Type 2 diabetes mellitus Blood glucose elevated Preventative health care Acute pain of both ears Tachycardia Impacted cerumen, right ear Health care maintenance Anemia Osteoporosis Psoriatic arthritis Arthritis History of seizures Hypertension Home Medications ?Medication ?Instructions ?Recorded ?Last Taken ?Type acetaminophen 325 mg tablet 650 mg (2 x 325 mg) PO Q4H PRN PRN 09/08/17 Unknown Rx Headache/Temp>99F secukinumab 150 mg/mL subcutaneous 300 mg subcut Q4W 12/25/21 Unknown History syringe (Cosentyx) lisinopril 30 mg tablet See Rx Instructions .Route 01/19/24 Unknown Rx .COMPLEX #90 tabs prednisone 5 mg tablet See Rx Instructions .Route 01/19/24 Unknown Rx .COMPLEX #90 tabs Allergy/AdvReac Type Severity Reaction Status Date / Time tramadol Allergy Severe seizures Verified 05/23/24 06:56 adalimumab (From Humira) Allergy Unknown unknown Verified 05/23/24 06:56 apremilast (From Otezla) Allergy Unknown unknown Verified 05/23/24 06:56 infliximab (From Remicade) Allergy Unknown unknown Verified 05/23/24 06:56 infliximab-dyyb (From AdvReac Unknown unknown Verified 05/23/24 06:56 Inflectra) leflunomide (From Arava) AdvReac Other Verified 05/23/24 06:56 methotrexate (Methotrexate) AdvReac Other Verified 05/23/24 06:56 sulfasalazine (Sulfasalazine) AdvReac Other Verified 05/23/24 06:56 Family History Father Myocardial infarction Surgical History S/P foot surgery History of cataract surgery Social History Smoking Status: Never smoker alcohol intake: never substance use type: does not use what type of physical activity do you participate in: none Vital Signs Vital Signs Vital Signs: 05/23/24 06:28 05/23/24 06:28 05/23/24 06:43 Temperature 98.0 F Temperature Source Temporal Pulse Rate 119 H 111 H Respiratory Rate 20 H 23 H Respiratory Effort Respiratory Depth Respiratory Pattern Blood Pressure 154/73 H 139/73 H Blood Pressure Mean 100 95 Pulse Ox 93 97 Oxygen Delivery Method Nasal Cannula Nasal Cannula Nasal Cannula Oxygen Flow Rate (L/min) 2 2 05/23/24 06:51 05/23/24 06:58 05/23/24 07:28 Temperature 98.0 F Temperature Source Oral Pulse Rate 111 H 111 H 105 H Respiratory Rate 20 H 18 16 Respiratory Effort Respiratory Depth Respiratory Pattern Blood Pressure 154/73 H 148/76 H 142/69 H Blood Pressure Mean 100 100 93 Pulse Ox 93 93 93 Oxygen Delivery Method Room Air Nasal Cannula Nasal Cannula Oxygen Flow Rate (L/min) 2 2 05/23/24 08:00 05/23/24 08:30 05/23/24 08:35 Temperature 97.5 F L Temperature Source Pulse Rate 110 H 109 H 110 H Respiratory Rate 20 H 20 H 20 H Respiratory Effort Respiratory Depth Respiratory Pattern Blood Pressure 161/72 H 157/87 H 157/87 H Blood Pressure Mean 101 110 110 Pulse Ox 94 93 95 Oxygen Delivery Method Nasal Cannula Nasal Cannula Oxygen Flow Rate (L/min) 2 2 05/23/24 08:50 05/23/24 09:05 05/23/24 10:28 Temperature 97.9 F Temperature Source Oral Pulse Rate 106 H Respiratory Rate 18 Respiratory Effort Normal Non-Labored Respiratory Depth Normal Respiratory Pattern Normal Blood Pressure 151/66 H Blood Pressure Mean 94 Pulse Ox 95 94 Oxygen Delivery Method Nasal Cannula Nasal Cannula Nasal Cannula Oxygen Flow Rate (L/min) 2 2 05/23/24 11:14 05/23/24 11:18 05/23/24 11:50 Temperature 97.9 F Temperature Source Oral Pulse Rate 109 H Respiratory Rate 18 Respiratory Effort Respiratory Depth Respiratory Pattern Blood Pressure 141/65 H Blood Pressure Mean 90 Pulse Ox 95 Oxygen Delivery Method Nasal Cannula Oxygen Flow Rate (L/min) 2 2 2 05/23/24 14:00 05/23/24 15:50 Temperature 98.4 F Temperature Source Oral Pulse Rate 96 Respiratory Rate 16 Respiratory Effort Normal Non-Labored Respiratory Depth Normal Respiratory Pattern Normal Blood Pressure 151/66 H Blood Pressure Mean 94 Pulse Ox 96 Oxygen Delivery Method Room Air Room Air Oxygen Flow Rate (L/min) Weight Weight: 77.2 kg Body Mass Index (BMI) 32.1 EEG Results Procedure Details EEG Procedure Details: MILIND DAWSON is a 69 year old F with a past medical history of , who presents for evaluation of Electroencephalogram on DATE at TIME NIHSS NIHSS Nursing Documentation NIHSS Nursing Documentation: NIHSS: Ischemic Stroke/TIA Start: 05/23/24 08:53 Text: For PCU Patients: NIH and Neuro Check every 4 Status: Active hours, PRN and with change in RN caregiver. Freq: [id number] Protocol: Activity Type Activity Date Activity User E-sign Co-sign Detail Recorded Client Recorded Date Recorded By Document 05/23/24 15:50 MM [id number] 05/23/24 15:55 MM 05/23/24 15:50 NIH Stroke Scale [NIHSS] A score of 0 is normal or asymptomatic . Total possible score is 42. Inpatient: RN or Physician to activate a stroke alert for onset of new stroke symptoms or with NIHSS increase >/= 3 points. Following change in neurological status, NIHSS will be performed per physician order or more frequently PRN. -1a. Level of Consciousness Alert; keenly responsive -1b. LOC Questions Answers BOTH questions correctly. -1c. LOC Commands Performs both tasks correctly . -2. Best Gaze Normal -3. Visual No visual loss -4. Facial Palsy Normal symmetrical movements -5a. Left Arm No drift; arm holds 90 (or 45 ) degrees for full 10 seconds -5b. Right Arm No drift; arm holds 90 (or 45 ) degrees for full 10 seconds -6a. Left Leg No drift; leg holds 30-degree position for full 5 seconds -6b. Right Leg No drift; leg holds 30-degree position for full 5 seconds -7. Limb Ataxia Absent -8. Sensory Normal; no sensory loss -9. Best Language No aphasia; normal -10. Dysarthria Normal -11. Extinction and Inattention No abnormality -Total 0 Query Text:A score of 0 is normal or asymptomatic. Total possible score is 42 . ED: Notify Physician for NIHSS increase by > / = 3 points. Inpatient: RN or Physician to activate a stroke alert for NIHSS increase of > / = 3 points. Coma Scale [Assess] -Eye Opening Spontaneous -Motor Obeys Commands -Verbal Oriented [Total] -Coma Scale Total 15 Physical Exam Narrative AOx4. Naming and repetition intact. WIlling historian though she does not remember event - just going to sleep then waking in hospital. EOMI, sensation in tact V1/2/3 bilaterally, no facial droop, no dyarthria, tongue midline, head rotation intact, SA antigravity + but pain-limited, meteorological engineer/HF/KE/DF/PF 5/5 and equal bilaterally. Sensation intact to light touch in all istal extremities. Finger to nose good. Lab / Micro Data 05/23/24 06:30 05/23/24 06:30 Labs: Laboratory Results - last 24 hr 05/23/24 06:30: WBC 10.1, RBC 4.14 L, Hgb 11.8 L, Hct 38.9, MCV 94.0, MCH 28.5, MCHC 30.3 L, RDW Std Deviation 49.1 H, RDW Coeff of Raji 14.2, Plt Count 330, MPV 9.8, Immature Gran % (Auto) 0.800, Neut % (Auto) 44.4 L, Lymph % (Auto) 41.1 H, Mora % (Auto) 9.2, Eos % (Auto) 3.9, Baso % (Auto) 0.6, Absolute Neuts (auto) 4.5, Absolute Lymphs (auto) 4.13, Nucleated RBC % 0, PT 13.0, INR 1.0, APTT 25.5, Sodium 139, Potassium 3.8, Chloride 108 H, Carbon Dioxide 22.0, Anion Gap 9, BUN 33 H, Creatinine 1.01, Estim Creat Clear Calc 51.09, Est GFR (MDRD) Af Amer 70, Est GFR (MDRD) Non-Af 58 L, BUN/Creatinine Ratio 32.7 H, Glucose 173 H, Calcium 9.7, Magnesium 2.2, Triglycerides 207 H, Cholesterol 268 H, LDL Cholesterol 173 H, VLDL Cholesterol 41 H, HDL Cholesterol 54, TSH 2.470 05/23/24 08:00: Hemoglobin A1c 7.2 H 05/23/24 11:51: POC Glucose 199 H 05/23/24 16:33: POC Glucose 176 H Micro: Microbiology 05/23/24 10:31 Urine, Random Legionella Antigen - Final 05/23/24 10:31 Urine, Random Streptococcus pneumoniae Antigen (M - Final 05/23/24 07:55 Mucosa - Nose SARS-CoV-2, Influenza & RSV (PCR) - Final Imaging Radiology Impression Brain CT 05/23/24 06:28 IMPRESSION: No CT evidence of acute intracranial hemorrhage or injury Electronically Signed: Fabien Pantoja MD at 6:45 EDT , ADDENDUM: 05/23/24 0654 IMPRESSION: No CT evidence of acute intracranial hemorrhage or injury N.B. : The above Results were Read Back by Fabien Pantoja MD to Fabrizio Shafer DO, and understanding confirmed on 05/23/2024 06:47:48 (ET). Electronically Signed: Fabien Pantoja MD at 6:45 EDT , Chest X-Ray 05/23/24 06:28 IMPRESSION: Hyperexpansion compatible with chronic obstructive pulmonary disease. No radiographic evidence of acute cardiopulmonary disease. Electronically Signed: Fabien Pantoja MD at 7:56 EDT Reading Location ID and State: [facility] / [place] Tel , Service support , Head/Neck CTA 05/23/24 06:28 IMPRESSION: Mild atherosclerosis most prominent at the cervical carotid bifurcations without evidence of cervical or proximal intracranial vascular occlusion or focal flow-limiting stenosis. Left thyroid 1.5 cm heterogeneous nodule. Ultrasound characterization is recommended when clinically able. N.B. : The above Results were Read Back by Fabien Pantoja MD to Fabrizio Shafer DO, and understanding confirmed on 05/23/2024 07:00:15 (ET). Electronically Signed: Fabien Pantoja MD at 7:01 EDT Reading Location ID and State: [facility] / [place] Tel , Service support , ADDENDUM: 05/23/24 0708 IMPRESSION: Mild atherosclerosis most prominent at the cervical carotid bifurcations without evidence of cervical or proximal intracranial vascular occlusion or focal flow-limiting stenosis. Left thyroid 1.5 cm heterogeneous nodule. Ultrasound characterization is recommended when clinically able. N.B. : The above Results were Read Back by Fabien Pantoja MD to Fabrizio Shafer DO, and understanding confirmed on 05/23/2024 07:00:15 (ET). Electronically Signed: Fabien Pantoja MD at 7:01 EDT , Foot X-Ray 05/23/24 08:53 IMPRESSION: Subcutaneous emphysema volar to the calcaneus consistent with a ulcer but there is no evidence of erosive lesion in the calcaneus. Osteopenia with polyarticular arthrosis No demonstrated fracture or suspicious osseous lesion Electronically Signed: Rip Goodman MD at 9:44 EDT , Active Medications Active Medications Active Medications: Current Medications Generic Name Dose Route Start Last Admin Trade Name Freq PRN Reason Stop Dose Admin Acetaminophen 650 mg 05/23/24 08:53 Acetaminophen 325 Mg Tablet PO Q4H PRN PRN Pain 1-10 Or Fever>99.6 Albuterol Sulfate 2.5 mg 05/23/24 08:53 Albuterol 2.5 Mg/3 Ml Vial.Neb. INHALATION Q2H PRN PRN SOB &/OR WHEEZING Atorvastatin Calcium 40 mg 05/23/24 22:00 Atorvastatin Calcium 40 Mg Tablet PO QHS ELENA Enoxaparin Sodium 40 mg 05/23/24 10:00 05/23/24 10:43 Enoxaparin 40 Mg/0.4 Ml Syringe SC 40 mg DAILY ELENA Administration Hydralazine HCl 5 mg 05/23/24 08:53 Hydralazine 20 Mg/Ml Vial IV 05/24/24 08:53 Q30M PRN maintain BP parameters with HR <60 Ampicillin Sodium/Sulbactam 112 mls @ 150 mls/hr 05/23/24 12:00 05/23/24 19:17 Sodium 3 gm/ Sodium Chloride IV Infused Q6 ELENA Infusion Sodium Chloride 100 mls @ 15 mls/hr 05/23/24 09:25 IV .Q6H40M PRN Saline Flush Sodium Chloride 100 mls @ 15 mls/hr 05/23/24 09:25 IV .Q6H40M PRN Additional IVPB Infusion Labetalol HCl 10 - 20 mg 05/23/24 08:53 Labetalol (Prefilled) 20 Mg/4 Ml Vial IV 05/24/24 08:53 Q10M PRN PRN maintain BP parameters with HR >/=60 Lorazepam 2 mg 05/23/24 11:11 Lorazepam 2 Mg/Ml Syringe IV X1 PRN SEIZURES Melatonin 3 mg 05/23/24 08:53 Melatonin 3 Mg Tablet PO QHS PRN PRN INSOMNIA Ondansetron HCl 4 mg 05/23/24 08:53 Ondansetron 4 Mg/2 Ml Vial IV Q8H PRN PRN NAUSEA/VOMITING Prednisone 5 mg 05/23/24 09:30 05/23/24 10:43 Prednisone 5 Mg Tablet PO 5 mg DAILYCM ELENA Administration Senna/Docusate Sodium 2 tablet 05/23/24 08:53 Senna/Docusate Sodium 1 Tablet PO BID PRN PRN Constipation Sodium Chloride 10 - 40 ml 05/23/24 09:25 0.9% Saline Lock 10 Ml Syringe IV UD PRN SALINE FLUSH Topiramate 25 mg 05/23/24 08:53 05/23/24 10:43 Topiramate 25 Mg Tablet PO 25 mg BID ELENA Administration
[2024-05-23 20:35] LABS: Bedside Glucose 205 mg/dL (74-106)
[2024-05-23] MEDS: Atorvastatin Calcium 40 MG Tablet PO (21:22)
[2024-05-24] VITALS: BP 145/72; PULSE 86; RESP 18; TEMP 36.2; O2SAT 95
[2024-05-24] MEDS: Acetaminophen 325 MG Tablet 650 MG PO (00:55)
[2024-05-24] MEDS: Ampicillin/Sulbactam 3 GM in 0.9% Normal Saline (100mL MB+) 100 ML IV ×3 (00:56→13:23)
[2024-05-24 03:50] VITALS: BP 110/54; PULSE 76; RESP 18; TEMP 35.8; O2SAT 95
[2024-05-24 04:25] VITALS: BMI 32.1
[2024-05-24 06:10] LABS: Absolute Lymphocyte Count 2.22 X10^3/uL (0.83-4.51); Absolute Neutrophil Count 4.4 X10^3/uL (2.0-7.7); Basophil# 0.02 X10^3/uL; Basophil% 0.3 % (0-1); Eosinophil# 0.25 X10^3/uL; Eosinophils% 3.3 % (0-5); Hematocrit 34.4 % (37-47); Hemoglobin 10.6 g/dL (12.0-15.0); Lymphocyte # 2.22 X10^3/ul (0.83-4.51); Lymphocyte % 28.9 % (19-41); Mean Corp Hgb Conc 30.8 g/dL (32-36); Mean Corpuscular Hgb 28.6 pg (27.0-32.0); Mean Corpuscular Volume 92.7 fL (81-99); Mean Platelet Vol. 10.1 fl (6.2-12.0); Monocyte# 0.74 X10^3/uL; Monocyte% 9.6 % (0-10); NRBC Flagged by Analyzer 0 % (0-5); Neutrophil # 4.44 X10^3/uL (2.7-7.7); Neutrophil % 57.6 % (47-70); Platelet Count 280 K/mm3 (150-450); RBC Distribution Width CV 14.1 % (11.6-14.6); RBC Distribution Width SD 48.2 fl (35.1-43.9); Red Blood Count 3.71 M/mm3 (4.2-5.4); White Blood Count 7.7 K/mm3 (4.4-11.0)
[2024-05-24 06:46] LABS: ALB/GLOB Ratio 0.9 RATIO (0.9-2.4); AST(SGOT) 12 U/L (15-37); Alanine Aminotransfer ALT/SGPT 17 U/L (13-56); Alkaline Phosphatase 69 U/L (45-117); Anion Gap 5 (5-15); BUN 23 mg/dL (7-18); BUN/Creat Ratio 30.3 RATIO (10-20); Calcium,Total 9.2 mg/dL (8.5-10.1); Chloride 108 mmol/L (98-107); Creatinine, Serum 0.76 mg/dL (0.55-1.02); EST Glomerular Filtration Rate 81 mL/min (>60); Est Glom Filt Rate - Afr Amer 98 mL/min (>60); Estimated Creatinine Clearance 64.16 ml/min; Globulin 3.5 g/dL (2.2-4.2); Glucose 137 mg/dL (74-106); Phosphorus 2.8 mg/dL (2.5-4.9); Potassium 3.8 mmol/L (3.5-5.1); Protein, Total 6.5 g/dL (6.4-8.2); Sodium Level 139 mmol/L (136-145)
[2024-05-24 08:31] VITALS: BP 142/89; PULSE 93; RESP 16; TEMP 36.7; O2SAT 96
[2024-05-24] MEDS: Enoxaparin 40 MG/0.4 ML Syringe SC (09:26)
[2024-05-24] MEDS: Topiramate 25 MG Tablet PO (09:26)
[2024-05-24] MEDS: predniSONE 5 MG Tablet PO (09:26)
--- NOTE | 2024-05-24 09:30 | MRI_ITS ---
EXAM: MR HEAD WITHOUT AND WITH INTRAVENOUS CONTRAST CLINICAL INDICATION: Stroke/seizure. TECHNIQUE: Multiplanar and multisequence MR images of the brain were obtained without and with intravenous contrast. CONTRAST: 15 mL of IV Clariscan. COMPARISON: CT head without contrast 09/06/2017. FINDINGS: BRAIN AND EXTRA-AXIAL SPACES: No diffusion restriction to suspect acute or subacute ischemic infarct. Few subcortical and periventricular white matter T2 FLAIR hyperintensity foci in both cerebral hemispheres are chronic white matter ischemic changes. No midline shift and no mass effects. Following IV contrast administration, there are no abnormally enhancing lesions intra-axially and extra-axially. No communicating or noncommunicating hydrocephalus. Normal ventricles and cisterns. No intra- or extra-axial hemorrhage. Posterior fossa structures are unremarkable. SELLA: Unremarkable. Normal sella turcica, pituitary gland, infundibular stalk, optic chiasm and hypothalamus. AUDITORY SYSTEM: Unremarkable. The internal auditory canals are patent. BONES/JOINTS: Unremarkable. No discrete lytic or blastic abnormalities. SINUSES: Unremarkable as visualized. Clear. MASTOID AIR CELLS: Unremarkable as visualized. Clear. ORBITS: Unremarkable as visualized. Both globes, extraocular muscles, optic nerves and retrobulbar fat appear unremarkable. VASCULATURE: Unremarkable as visualized. Normal flow voids in the major intracranial circulation. MRI/Brain W/WO Contrast IMPRESSION: 1. No MRI evidence of acute or subacute ischemic infarct or acute intracranial abnormality. 2. Chronic white matter ischemic changes in both cerebral hemispheres. 3. No abnormally enhancing lesions intra-axially and extra-axially. Electronically Signed: Brennan Nuñez MD at 11:03 EDT ,
--- NOTE | 2024-05-24 10:39 | NUR.TO.PHY ---
wound photo: left heel
--- NOTE | 2024-05-24 11:00 | CASEMGMT ---
RN CM Face to Face with patient for initial transition planning/care coordination assessment. RN CM introduced self and role at [facility]. Patient lying in bed, alert and oriented, family at bedside. Patient willing to participate in assessment and is able to answer all questions appropriately. Care providers, pharmacy, and demographics verified. 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 Patient states she is independent at home Transportation: DME/HHC: Patient has shower chair, cane, and walker at home. No previous HHC or SNF Patient wishes to discharge home, denies need for home health at this time. Patient states she has no further needs or concerns at this time. CM to follow for discharge planning needs that may arise. Disposition Plan: Patient to discharge home with family support and follow-up plans in place. Selene OVERTON, RN, CM
--- NOTE | 2024-05-24 15:37 | PCM.DC.SUM ---
Providers Date of Admission: 05/23/24 Date of Discharge: 05/24/24 Primary Care Physician: Dr. 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 Routine Comment: Consult: Tele-Neurology Routine Consulting Provider: [facility] Reason for Consult: Acute Ischemic Stroke/TIA vs seizure with Gabriel's paralysis EMERGENT Consult: No MD Notified: Yes Date Notified: 05/23/24 Time Notified: 09:07 Method of Notification: Answering Service Nursing Unit Staff Notify [facility] of Tele-Neurology Consult: Yes Reason For Visit: ALTERED MS AND HYPOXIA Diagnosis Discharge Diagnosis (1) Facial droop: Status: Acute Code(s): R29.810 - Facial weakness (2) Right sided weakness: Status: Acute Code(s): R53.1 - Weakness (3) Altered mental status: Status: Acute Code(s): R41.82 - Altered mental status, unspecified (4) Hypoxia: Status: Acute Code(s): R09.02 - Hypoxemia (5) Seizure disorder: Status: Acute Code(s): G40.909 - Epilepsy, unspecified, not intractable, without status epilepticus (6) Aspiration pneumonia: Status: Acute Code(s): J69.0 - Pneumonitis due to inhalation of food and vomit (7) Open wound of heel: Status: Acute Code(s): S91.309A - Unspecified open wound, unspecified foot, initial encounter (8) Thyroid nodule: Status: Acute Code(s): E04.1 - Nontoxic single thyroid nodule Medications at Discharge Home Medications acetaminophen 325 mg tablet 650 mg (2 x 325 mg) PO Q4H PRN PRN Headache/Temp>99F 09/08/17 secukinumab 150 mg/mL subcutaneous syringe (Cosentyx) 300 mg subcut Q4W 12/25/21 lisinopril 30 mg tablet See Rx Instructions .Route .COMPLEX #90 tabs 01/19/24 prednisone 5 mg tablet See Rx Instructions .Route .COMPLEX #90 tabs 01/19/24 atorvastatin 40 mg tablet 40 mg PO QHS #30 tabs 05/24/24 metformin 500 mg tablet 500 mg PO BID #60 tabs 05/24/24 topiramate 25 mg tablet 25 mg PO UD #180 tabs 05/24/24 Hospital Course Operations None Procedures None Summary of Care Provided Minutes Spent on Discharge: 55 Hospital Course: Patient is a 69-year-old female with a past medical history as outlined was admitted to the ED on 05/23/2024 with complaint of altered mental status with right-sided weakness and right facial droop which had largely resolved by the time she came into the ED. She had a history of seizure disorder first diagnosed in 2018 and was thought to be due to Ultram use. She subsequently had 2 other episodes here which were attributed to medication involved with a stress test at that time. She was placed on Keppra for about a year but this was discontinued subsequently by neurology. On the day of admission, stated that he had woken up early and had some noises coming from the area where she sleeps. She usually sleeps in a recliner. Initially thought she was snoring but went to check on her and she was having some gurgling sounds. He called his daughter and when she arrived patient was alert but did not seem to be cognitively intact. Family felt that it was similar to previous times when she had had seizures and she remained confused so they brought her into the ED. There were no generalized tonic-clonic movements noted. When the EMS arrived she was noted to have a right facial droop and right-sided weakness. Her facial droop subsequently resolved and power returned to normal. On admission she was hyperglycemic with blood sugar of 173 and A1c was 7.2. Lipid panel showed elevated total cholesterol of 268 with LDL of 173 and HDL of 54. TSH was normal. EKG showed no acute ST changes. CT of the brain showed mild atherosclerotic disease of bilateral carotid arteries per the CTA but no acute intracranial pathology on the CT brain. Chest x-ray showed hyperexpansion compatible with COPD. He had a complaint of a wound on her left foot but imaging done showed superficial callus. She was admitted and managed for acute encephalopathy with right facial droop and right-sided weakness rule out a stroke. She has CT of the brain as noted above. She also had EEG which did not show any evidence of any seizures. MRI of the brain also showed no evidence of acute stroke. Of note she was admitted on the stroke protocol. Neurology reviewed patient and thought his symptoms might be due to a seizure and that if the MRI and EEG were negative, she could be discharged home to follow-up with a neurologist on outpatient basis. She did have an MRI of the brain which was negative and EEG also was negative for any acute pathology. Since she had not previously tolerated Keppra, she was started on topiramate. Neurology recommended the patient continue on topiramate. She was to be on 25 mg twice daily for 1 week, then to increase to 50 mg twice daily for 1 week and then followed up with 75 mg twice daily for another week and then to finally increase to 100 mg twice daily. She is to follow-up with her neurologist on outpatient basis medications to be adjusted as needed. Of note there was concern for aspiration pneumonitis versus pneumonia due to patient being hypoxic on admission. She was started on Unasyn to cover for possible aspiration. She was continued on p.o. 875/125 mg twice daily for 1 week to cover for any possible aspiration pneumonia. Patient seen and examined prior to discharge. was by her bedside. She had no active complaints and felt well. She had an uneventful night. Review of systems otherwise negative. Labs and vitals reviewed. Medication reviewed and reconciled. Physical Exam Const alert and no apparent distress Constitutional Narrative: weak General Appearance: cooperative and comfortable Orientation / Consciousness: awake Exam Limitations: no limitations HEENT normocephalic, head/scalp atraumatic, hearing grossly normal bilaterally, moist oral mucous membranes and oropharynx normal Mouth: oral and palatal mucosa normal Eyes PERRL, EOMs intact bilaterally and conjunctivae normal Resp normal respiratory effort, no retractions and no use of accessory muscles Resp Narrative: on room air. Cardio regular rate, regular rhythm, S1 normal heart sound, S2 normal heart sound and no murmurs GI normal to inspection, nondistended, normoactive bowel sounds, soft to palpation, non-tender and non-distended Extremity normal to inspection, full ROM and no clubbing, cyanosis or edema Skin no rashes or lesions noted and no wounds Neuro oriented x3, CN's II-XII intact bilaterally, moves all extremities and no focal motor deficits Neuro Narrative: generalised weakness, no focal weakness Sensorium / Orientation: awake and alert Psych affect normal Weight / BMI Weight Weight: 170 lb 3.15 oz Body Mass Index (BMI) 32.1 ABG / Lab / Microbiology Data 05/24/24 05:44 05/24/24 05:44 Laboratory: Laboratory Results - last 24 hr 05/23/24 16:33: POC Glucose 176 H 05/23/24 20:16: POC Glucose 205 H 05/24/24 05:44: WBC 7.7, RBC 3.71 L, Hgb 10.6 L, Hct 34.4 L, MCV 92.7, MCH 28.6, MCHC 30.8 L, RDW Std Deviation 48.2 H, RDW Coeff of Raji 14.1, Plt Count 280, MPV 10.1, Immature Gran % (Auto) 0.300, Neut % (Auto) 57.6, Lymph % (Auto) 28.9, [place] % (Auto) 9.6, Eos % (Auto) 3.3, Baso % (Auto) 0.3, Absolute Neuts (auto) 4.4, Absolute Lymphs (auto) 2.22, Nucleated RBC % 0, Sodium 139, Potassium 3.8, Chloride 108 H, Carbon Dioxide 26.0, Anion Gap 5, BUN 23 H, Creatinine 0.76, Estim Creat Clear Calc 64.16, Est GFR (MDRD) Af Amer 98, Est GFR (MDRD) Non-Af 81, BUN/Creatinine Ratio 30.3 H, Glucose 137 H, Calcium 9.2, Phosphorus 2.8, Magnesium 2.0, Total Bilirubin 0.40, AST 12 L, ALT 17, Alkaline Phosphatase 69, Total Protein 6.5, Albumin 3.0 L, Globulin 3.5, Albumin/Globulin Ratio 0.9 Microbiology: Microbiology 05/23/24 10:31 Urine, Random Legionella Antigen - Final 05/23/24 10:31 Urine, Random Streptococcus pneumoniae Antigen (M - Final 05/23/24 07:55 Mucosa - Nose SARS-CoV-2, Influenza & RSV (PCR) - Final Radiography Diagnostic Testing: Radiology Impression Brain MRI 05/24/24 09:30 IMPRESSION: 1. No MRI evidence of acute or subacute ischemic infarct or acute intracranial abnormality. 2. Chronic white matter ischemic changes in both cerebral hemispheres. 3. No abnormally enhancing lesions intra-axially and extra-axially. Electronically Signed: Brennan Nuñez MD at 11:03 EDT , D/C Instructions Discharge Diet: Low fat / Low cholesterol Discharge Activity: Return to Normal Activity Weight Bearing Status: Weight bearing as tolerated Call your doctor if you observe: Fever of 101 or Higher, Shortness of breath, Dizziness, Swelling in the ankles and Chest pain Meaningful Use Info Meaningful Use Meaningful Use Diagnoses (Choose all that apply): None applicable Ischemic Stroke Statin Dosing Therapy Reference: STATIN DOSE THERAPY REFERENCE: * Patients > 75 years receive moderate or high dose statin therapy. * Patients 75 years or YOUNGER should receive HIGH intensity statin dose unless contraindicated. You will be required to document reason for non-treatment if statin daily dose does not meet guidelines. HIGH DOSE STATIN THERAPY DAILY Atorvastatin > than or = to 40 mg Rosuvastatin > than or = to 20 mg Amlodipine + Atorvastatin > than or = to 2.5/40 mg Ezetimibe + Simvastatin 10/80 mg Simvastatin 80mg Discharge Plan Admission Admit Date/Time: 05/23/24 07:35 Primary Reason for Your Visit: altered mental status, right facial droop Attending Provider: Conchita Ding Primary Care Provider: Danny Herrera Consulting Providers: Tali Alvarado; Nina Murguia; Cynthia Prince; Earl Ugalde; Rahat Garcia; Omar Esparza; ALONZO HILLS; Fransisca Leal; Mckenna Trujillo; Minesh Kaminski; Sofie Leahy; Salvador Chen; Dilcia Chapman; Liz Rasmussen; Toby Weinberg; Beata Meyer; Vaibhav José; Jaziel Owen; Fabien Murray; Rachel Candelaria; Rodriguez Garza; Hardeep Helms; David Childs; Cain Velazquez; Yolanda Carey; Yao Zapata; Jaqui Carey; Conchita Ding; Nazario Cook Instructions Patient Instructions: ED Confusion, Altered LOC Ch Discharge Orders/Prescriptions Prescriptions: New topiramate 25 mg tablet 25 mg PO UD Qty: 180 2RF Rx Instructions: take one tablet (25mg) twice daily for one week, then two tablets (50mg) twice daily for one week, then three tablets (75mg) twice daily for one week, then continue with 4 tablet (100mg) twice daily. atorvastatin 40 mg tablet 40 mg PO QHS Qty: 30 2RF metformin 500 mg tablet 500 mg PO BID Qty: 60 2RF Continued Cosentyx 150 mg/mL syringe 300 mg subcut Q4W Rx Instructions: start 4 wks after last weekly dose;inject [id number] doses each in different thigh/upper arm/abdominal areas. last took in March acetaminophen 325 MG tablet 650 mg PO Q4H PRN PRN (Reason: Headache/Temp>99F) 0RF prednisone 5 mg tablet See Rx Instructions .ROUTE .COMPLEX Qty: 90 0RF Dose Instruction: TAKE 1 TABLET BY MOUTH EVERY DAY Rx Instructions: TAKE 1 TABLET BY MOUTH EVERY DAY lisinopril 30 mg tablet See Rx Instructions .ROUTE .COMPLEX Qty: 90 0RF Dose Instruction: TAKE 1 TABLET BY MOUTH EVERY DAY Rx Instructions: TAKE 1 TABLET BY MOUTH EVERY DAY Referrals / Follow Up: Danny Herrera MD [Primary Care Provider] - Within 1 Week Paresh Arellano MD [Non-Staff -Ordering Privileges] - Within 2 Weeks Disposition Disposition (needs filled in before D/C Order can be placed): Home, Self Care Charges/Coding Visit Charges Inpatient E&M: 78699 Disch Hosp >30min
--- NOTE | 2024-05-24 16:22 | CASEMGMT ---
Patient has order for discharge. RN CM in to discuss needs at discharge, family at bedside. Patient and family denied needs or help at discharge. Patient and family had no further questions or concerns.
[2024-05-24 16:51] VITALS: BP 129/73; PULSE 105; RESP 16; TEMP 36.9; O2SAT 96
[2024-06-02 11:09] LABS: BNP,B-Type NATRIURETIC PEPTIDE 17.7 pg/mL (0.0-100.0)
== END 2024-05-24 17:00 | disposition home or self-care (01) | DRG 100 ==
LOC: ED 07:03 → PCU 07:50
PROVIDERS: Admitting Provider Internal Medicine; Emergency Provider Emergency Medicine; PCP Internal Medicine; Visit Provider Student in an Organized Health Care Education/Training Program
DX: G40.909 Epilepsy, unspecified, not intractable, without status epilepticus (principal); J69.0 Pneumonitis due to inhalation of food and vomit; L40.50 Arthropathic psoriasis, unspecified; E04.1 Nontoxic single thyroid nodule; I10 Essential (primary) hypertension; Z68.32 Body mass index [BMI] 32.0-32.9, adult; E78.5 Hyperlipidemia, unspecified; L84 Corns and callosities; E66.9 Obesity, unspecified; R09.02 Hypoxemia; R53.1 Weakness; R53.81 Other malaise; R94.5 Abnormal results of liver function studies; R73.09 Other abnormal glucose; Z79.899 Other long term (current) drug therapy
CPT/HCPCS: 36415; 70450; 70496; 70498; 70553; 71045; 73620; 80048; 80053; 80061; 82962; 83036; 83735; 83880; 84100; 84443; 85025; 85610; 85730; 87449; 87631; 92610; 93005; 93306; 94762; 95819; 97162; 97166; 97802; 99285; A9575; Q9967; A4216; J0295

== ENCOUNTER → 2024-06-21 | Outpatient (CLI) | payer OTHER, SELFPAY ==
[2024-06-21 10:11] LABS: Hematocrit 39.8 % (37-47); Hemoglobin 12.2 g/dL (12.0-15.0); Mean Corp Hgb Conc 30.7 g/dL (32-36); Mean Corpuscular Volume 91.5 fL (81-99); Mean Platelet Vol. 10.8 fl (6.2-12.0); Platelet Count 339 K/mm3 (150-450); RBC Distribution Width CV 14.4 % (11.6-14.6); RBC Distribution Width SD 48.8 fl (35.1-43.9); Red Blood Count 4.35 M/mm3 (4.2-5.4); White Blood Count 8.3 K/mm3 (4.4-11.0)
[2024-06-21 10:21] LABS: Cholesterol 242 mg/dL (200); High Density Lipoprotein 55 mg/dL; Triglycerides 169 mg/dL; Very Low Density Lipoprotein 34 mg/dL (5-40)
[2024-06-21 10:41] LABS: ALB/GLOB Ratio 0.9 RATIO (0.9-2.4); AST(SGOT) 13 U/L (15-37); Alanine Aminotransfer ALT/SGPT 15 U/L (13-56); Albumin, Serum 3.6 g/dL (3.2-5.0); Alkaline Phosphatase 106 U/L (45-117); Anion Gap 6 (5-15); BUN 29 mg/dL (7-18); BUN/Creat Ratio 30.9 RATIO (10-20); Calcium,Total 9.7 mg/dL (8.5-10.1); Chloride 116 mmol/L (98-107); Creatinine, Serum 0.94 mg/dL (0.55-1.02); EST Glomerular Filtration Rate 63 mL/min (>60); Est Glom Filt Rate - Afr Amer 77 mL/min (>60); Globulin 3.8 g/dL (2.2-4.2); Glucose 153 mg/dL (74-106); Magnesium 2.3 mg/dL (1.6-2.6); Potassium 3.7 mmol/L (3.5-5.1); Protein, Total 7.4 g/dL (6.4-8.2); Sodium Level 141 mmol/L (136-145)
[2024-06-23 14:10] LABS: Topiramate 12.2 ug/mL (2.0-25.0)
== END | disposition home or self-care (01) ==
PROVIDERS: PCP Internal Medicine; Referring Provider Psychiatry & Neurology Neurology; Visit Provider Psychiatry & Neurology Neurology
DX: G40.909 Epilepsy, unspecified, not intractable, without status epilepticus (principal); E78.5 Hyperlipidemia, unspecified
CPT/HCPCS: 36415; 80053; 80061; 80201; 82140; 83735; 85027

== ENCOUNTER → 2024-06-29 | Outpatient (CLI) | payer OTHER, SELFPAY ==
--- NOTE | 2024-06-29 12:22 | US_ITS ---
STUDY: THYROID ULTRASOUND REASON FOR EXAM: Female, 69 years old. ABnormal finding on CT TECHNIQUE: Ultrasound evaluation of the thyroid was performed with real-time and static alcala-scale imaging. COMPARISON: CTA of the neck 05/23/2024 FINDINGS: RIGHT LOBE: The right lobe of the thyroid gland measures 5.3 x 2.0 x 1.7 cm. There is a homogeneous echotexture. Nodule 1:7 x 5 x 5 mm solid hypoechoic wider than tall smoothly marginated nodule with no echogenic foci (TR 4) in the superior right lobe consistent with an adenoma. Nodule 2:10 x 5 x 7 mm solid isoechoic wider than tall smoothly marginated nodule with no echogenic foci (TR 3) in the inferior right lobe consistent with an adenoma. LEFT LOBE: The left lobe of the thyroid gland measures 4.6 x 1.9 x 1.8 cm. There is a homogeneous echotexture. Nodule 3:13 x 7 x 9 mm solid isoechoic wider than tall smoothly marginated nodule with no echogenic foci (closest ER 3) in the anterior left lobe consistent with an adenoma. Nodule 4:18 x 14 x 15 mm solid isoechoic wider than tall smoothly marginated nodule with no echogenic foci (TR 3) in the inferior left lobe and follow-up ultrasound is recommended one year. ISTHMUS: The isthmus measures 3 mm thick. . The regional lymph nodes are normal. US/Thyroid IMPRESSION: Multinodular thyroid gland and follow-up ultrasound is recommended one year. Electronically Signed: Juwan Gregory MD at 14:37 EST ,
== END | disposition home or self-care (01) ==
PROVIDERS: PCP Internal Medicine; Referring Provider Internal Medicine; Visit Provider Internal Medicine
DX: E04.1 Nontoxic single thyroid nodule (principal)
CPT/HCPCS: 76536

== ENCOUNTER 2024-09-08 10:45 | Outpatient (RCR) | payer OTHER, SELFPAY ==
[2024-09-01 10:30] VITALS: BP 155/83; PULSE 111; RESP 16; TEMP 36.2; BMI 31.5
--- NOTE | 2024-09-01 12:17 | RAD_ITS ---
EXAM: XR LEFT FOOT COMPLETE, 3 OR MORE VIEWS CLINICAL INDICATION: LEFT FOOT PAIN TECHNIQUE: Frontal, lateral and oblique views of the left foot. COMPARISON: 09/05/2017 and 05/23/2024 FINDINGS: BONES/JOINTS: Diffuse osteopenia. Arthritic changes of the metatarsophalangeal joints and interphalangeal joints throughout the foot. Calcaneal spur. No acute fracture. No subluxation. Normal alignment. No sclerotic or destructive changes observed. SOFT TISSUES: Diffuse soft tissue swelling. Focal soft tissue thickening at the heel. No radiopaque foreign body. RAD/Foot min 3 Views IMPRESSION: Degenerative changes and osteopenia. Soft tissue swelling particularly at the heel. No acute osseous findings. Electronically Signed: Fabricio Huffman DO at 22:31 EST ,
--- NOTE | 2024-09-01 12:56 | HP.PCM_ITS ---
History of Present Illness Date of Service: 09/01/24 Chief Complaint: Left foot wound History of Wound: Chronic foot wound Progress of Wound: Mrs Bowman is a 69-year-old female presenting the wound care center today for full-thickness wound to the medial aspect of the left heel. Patient was seen by an outside provider who is being treated for a plantar wart. The patient states she did have a biopsy to the area in question and since then she has noticed an increasing growth to the soft tissue area of the left heel. She states there is pain with shoe gear. She has been doing home dressing changes. When asked about any type of advanced imaging all she has had it was a radiograph and has not had an MRI to this day. She has been treated since March 2024, with no improvements. She has been doing home dressing changes with Betadine. She denies trauma. Denies constitutional symptoms. Other pedal complaints at this time. [facility] Medical History Multinodular thyroid Thyroid nodule Open wound of heel Seizure disorder Hypertension Hyperlipidemia Type 2 diabetes mellitus Blood glucose elevated Preventative health care Acute pain of both ears Tachycardia Impacted cerumen, right ear Health care maintenance Anemia Osteoporosis Psoriatic arthritis Arthritis History of seizures Hypertension Home Medications ?Medication ?Instructions ?Recorded ?Last Taken ?Type acetaminophen 325 mg tablet 650 mg (2 x 325 mg) PO Q4H PRN PRN 09/08/17 Unknown Rx Headache/Temp>99F secukinumab 150 mg/mL subcutaneous 300 mg subcut Q4W skin 12/25/21 Unknown History syringe (Cosentyx) atorvastatin 40 mg tablet 40 mg PO QHS #30 tabs 05/24/24 Unknown Rx metformin 500 mg tablet 500 mg PO BID #60 tabs 05/24/24 Unknown Rx prednisone 5 mg tablet See Rx Instructions .Route 05/28/24 Unknown Rx .COMPLEX inflammation #90 tabs lisinopril 30 mg tablet See Rx Instructions .Route 08/20/24 Unknown Rx .COMPLEX blood pressure #90 tabs naproxen 500 mg tablet 500 mg PO BID PRN pain #60 tabs 08/26/24 Unknown Rx topiramate 100 mg tablet 100 mg PO BID #60 tabs 08/26/24 Unknown Rx Allergy/AdvReac Type Severity Reaction Status Date / Time tramadol Allergy Severe seizures Verified 09/01/24 10:30 adalimumab (From Humira) Allergy Unknown unknown Verified 09/01/24 10:30 apremilast (From Otezla) Allergy Unknown unknown Verified 09/01/24 10:30 infliximab (From Remicade) Allergy Unknown unknown Verified 09/01/24 10:30 infliximab-dyyb (From AdvReac Unknown unknown Verified 09/01/24 10:30 Inflectra) leflunomide (From Arava) AdvReac Other Verified 09/01/24 10:30 methotrexate (Methotrexate) AdvReac Other Verified 09/01/24 10:30 sulfasalazine (Sulfasalazine) AdvReac Other Verified 09/01/24 10:30 Family History Father Myocardial infarction Surgical History S/P foot surgery History of cataract surgery Social History Smoking Status: Never smoker alcohol intake: never substance use type: does not use what type of physical activity do you participate in: none Vital Signs Vital Signs Vital Signs: 09/01/24 10:30 Temperature 97.2 F L Temperature Source Temporal Pulse Rate 111 H Respiratory Rate 16 Blood Pressure 155/83 H Blood Pressure Mean 107 Blood Pressure Source Monitor Blood Pressure Position Semi-Fowlers Blood Pressure Location Right Arm Oxygen Delivery Method Room Air Weight Weight: 75.75 kg Body Mass Index (BMI) 31.5 Physical Exam Narrative Vascular: DP and PT pulses are palpable. CFT is brisk. Skin temperature is warm to warm from proximal ankles to distal digits. Nonpitting edema is appreciated to the left lower extremity. Neurological: Light touch intact. Protective station is present. Dermatological: Large soft tissue mass to the medial aspect of the heel of the left lower extremity measuring 3.5 x 2.3 x 1.5 cm. The soft tissue mass has broken through the epidermis. There looks to be multiple applications of excisional debridement by an outside provider. Cannot rule out soft tissue neoplasm at this time. Excisional debridement down to including subcutaneous tissue of the large soft tissue mass to the left lower extremity heel with a pickup and 15 blade without incident.. Right measurement was eschar. measurement was 3.5 x 2.3 x 1.5 cm. Musculoskeletal: Mild palpatory tenderness appreciated to large soft tissue mass to the left heel. No pain with calf pressure. Debridement Note Debridement Note Debridement Free Text: Excisional debridement down to including subcutaneous tissue of the large soft tissue mass to the left lower extremity heel with a pickup and 15 blade without incident.. Right measurement was eschar. measurement was 3.5 x 2.3 x 1.5 cm. Post-Debridement Measurements and Additional Note: Post-Debridement Measurements/Treatment - Nurse 1 - General Ulcer Assessment Start: 09/01/24 10:21 Freq: Status: Active Protocol: ROEL.LOWEXT Activity Type Activity Date Activity User E-sign Co-sign Detail Recorded Client Recorded Date Recorded By Document 09/01/24 10:30 KW [id number] 09/01/24 10:55 KW 09/01/24 10:30 - Today's Visit Information Type of service Initial Visit Arrival Mode Ambulatory, Walker Accompanied by DAUGHTER Patient Identification Verified (Name & Yes ) Height and Weight Height 5 ft 1 in Weight 75.75 kg Weight in Pounds 167.0 lbs Weight Measurement Method Estimated by Patient Body Mass Index (BMI) 31.5 BMI Classification Obese BSA - Kay 1.75 Vital Signs Temperature (97.8 F-99.1 F) 97.2 F L Temperature Source Temporal Pulse Rate (60-100) 111 H Pulse Location Monitor Respiratory Rate (12-18) 16 Respiratory rate source Observation Oxygen Delivery Method Room Air Blood Pressure (90/60-120/80) 155/83 H Blood Pressure Mean 107 Source Monitor Position Semi-Fowlers Blood Pressure Location Right Arm History Since Last Visit- (Skip if this is Patient's initial visit) Left Footwear Regular Shoe Right Footwear Regular Shoe Pain Scale: 0-10 Numeric Is Patient Pain Free? No rt heel -Description Burning -Alleviating Factors/Interventions Medication, Medicate when due,Inactivity/ Resting Lower Extremity Assessment/ Foot Assessment/ Toe Nail Assessment Right -Posterior Tibial Doppler Monophasic -Dorsalis Pedis Doppler Monophasic -Hair Growth on Legs No -Hair Growth on Toes Yes -Temperature of Extremity Cool -Thick No -Discolored No -Deformed No -Improper Length & Hygeine No Left -Posterior Tibial Doppler Monophasic -Dorsalis Pedis Doppler Monophasic -Hair Growth on Legs No -Hair Growth on Toes Yes -Temperature of Extremity Cool -Capillary Refill Less than 3 Seconds -Thick No -Discolored No -Deformed No -Improper Length & Hygeine No Communication Assessment Preferred language Stateless Business Performance Advisor Required No Able to Read Yes Able to Write Yes Communication Tools None Right Hearing Abillity Normal Left Hearing Abillity Normal Visual Assistive Devices Glasses Teaching Assessment Preferences Verbal,Written, Demonstration Barriers to Learning None Readiness To Learn Excellent Willingness to Engage in Self Management High Activies Readiness to Engage in Self Management High Activities Anxiety Level Calm Cooperation Cooperative Perception Coherent Interest in Health Problem Asks Questions Education Importance Acknowledges Need Does Patient Smoke tobacco or other No substances Smoking Status Never smoker Is Patient Diabetic No Functional Assessment Recent Decline in Ability to Perform Denies Any Declines Culture/Jainism/Systems Security Consultant Cultural/Jainism Needs that may affect No Treatment Plan Would you allow our [facility] electrologist to No meet you for the purpose of spiritual/ emotional support? Systems Security Consultant to contact place of caodaism No WC - Nurse 1 - General Ulcer Measurement Start: 09/01/24 10:21 Freq: Status: Active Protocol: Activity Type Activity Date Activity User E-sign Co-sign Detail Recorded Client Recorded Date Recorded By Document 09/01/24 10:30 KW [id number] 09/01/24 10:55 KW 09/01/24 10:30 Wound Center Nurse 1 #1 LT MED HEEL -Current Size (cm) - Length 4 -Current Size (cm) - Width 2 -Current Size (cm) - Depth 0 -Total Square Cm 8 -Date of Last Picture (Recall this 09/01/24 field) -Exudate Amt Small -Exudate Type Serosanguineous -Wound Margin Distinct, Outline Attached -Granulation Amt Small (1-33%) -Granulation Quality Hyper- granulation, Rendon -Necrosis Amt Large (67-100%) -Necrotic Tissue Type Adherent Slough -Texture ([place]-wound Skin Appearance) Assessed,Callus -Moisture ([place]-wound Skin Appearance) Assessed -Color ([place]-wound Skin Appearance) Assessed -Temperature ([place]-wound Skin No Abnormality Appearance) (Pt Warm) -Tenderness on Palpation ([place]-wound No Skin Appearance) -Ulcer Cleansing Soap and Water -Foul Odor after Cleansing No -Anesthetic Used 4% Lidocaine Solution Right Calf (cm) 34 Right Ankle (cm) 21 Point of measurement (cm from the medial 34.5 instep) Point of Measurement (cm from the medial 21 instep) WC - Nurse 2 - General Ulcer CM Notes Start: 09/01/24 10:21 Freq: Status: Active Protocol: Activity Type Activity Date Activity User E-sign Co-sign Detail Recorded Client Recorded Date Recorded By Document 09/01/24 11:12 DS [id number] 09/01/24 11:15 DS Edit Result 09/01/24 11:12 DS (1) [id number] 09/01/24 11:24 DS (1) #1 LT MED HEEL - Type of Procedure => Debridement - Clinical Debridement => Subcutaneous - Tissue Removed => Subcutaneous - Debridement - Subq, 1st 20sq cm => Yes 09/01/24 11:12 Wound Center Nurse 2 #1 LT MED HEEL -Time 11:12 -Correct Patient Yes -Correct Side, Site, Position Yes -Correct Procedure Yes -Procedure Performed No -Type of Procedure Debridement -Clinical Debridement Subcutaneous -Tissue Removed Subcutaneous -Post Debridement (cm) - Length 3.5 -Post Debridement (cm) - Width 2.3 -Post Debridement (cm) - Depth 1.5 -Total Square (Post) (cm) 8.05 -Area of Debridement (cm) - Length 3.5 -Area of Debridement (cm) - Width 2.3 -Total Square (Area) (cm) 8.05 -Tunneling No -Undermining/Tunneling No -Circular Undermining No -Wound/Ulcer Outcome Not Healed -Ulcer Cleansing Rinsed/ Irrigated with Saline -Foul Odor after Cleansing No -Bioengineered Tissue No -Debridement - Subq, 1st 20sq cm Yes Pain Scale: 0-10 Numeric Is Patient Pain Free? Yes WC - Nurse 3 - General Ulcer D/C NN Start: 09/01/24 10:21 Freq: Status: Active Protocol: Activity Type Activity Date Activity User E-sign Co-sign Detail Recorded Client Recorded Date Recorded By Document 09/01/24 11:30 GM [id number] 09/01/24 11:35 GM 09/01/24 11:30 Wound Care Center Nurse 3 #1 LT MED HEEL -Ulcer Cleansing Not Cleansed -Primary Dressing Applied Silvercel -Primary Dressing Covered/Secured with Dry Gauze & Roll Gauze, Secured with Tape -Silvercel 1 Left -Lotion applied to leg before No compression wrap -Tubular Bandage Single Layer -Size of Tubigrip Used Size E -Size E ($) 1 Pain Scale: 0-10 Numeric Is Patient Pain Free? Yes WC - Visit Discharge Discharge Condition Stable Ambulatory Status Ambulatory Assessment/Plan Assessment/Plan (1) Non-pressure chronic ulcer of left heel and midfoot with fat layer exposed: CODE(S): L97.422 - Non-pressure chronic ulcer of left heel and midfoot with fat layer exposed PLAN: Patient was examined and evaluated. All findings were discussed with the patient. All questions were answered to the patient's satisfaction. Excisional debridement down to including subcutaneous tissue of the large soft tissue mass to the left lower extremity heel with a pickup and 15 blade without incident.. Right measurement was eschar. measurement was 3.5 x 2.3 x 1.5 cm. Left extremities are clean and patted dry. Betadine paint was applied to the soft tissue mass followed by silver alginate dry sterile dressing and compression wrap. I will order a x-ray to rule out any bone involvement to the left heel as well as will be authorizing to the patient's insurance for a MRI due to and for concerns for a soft tissue neoplasm of unknown origin to the left lower extremity heel area. The patient has been dealing with a soft tissue mass since March 2024 and due to the chronicity of this soft tissue mass and its overall texture I am concerned that there could be underlying bone or soft tissue involvement that will not be seen on a plain film radiographs. The MRI will be used for surgical planning. The patient understands all risk and benefits. The patient will continue every other day dressing changes as discussed. Follow-up at the wound care center with Dr. Wright in 1 week. 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
--- NOTE | 2024-09-02 09:38 | WC ---
PHOTO 09/01/24 RIGHT LATERAL HEEL
[2024-09-08 10:49] VITALS: BP 147/77; PULSE 109; RESP 16; BMI 31.5
--- NOTE | 2024-09-08 12:19 | PCM.WC.PN ---
History of Present Illness Date of Service: 09/08/24 Chief Complaint: Left foot wound History of Wound: Chronic foot wound Progress of Wound: Mrs Bowman is a 69-year-old female presenting the wound care center today for full-thickness wound to the medial aspect of the left heel. Patient was seen by an outside provider who is being treated for a plantar wart. The patient states she did have a biopsy to the area in question and since then she has noticed an increasing growth to the soft tissue area of the left heel. She states there is pain with shoe gear. She has been doing home dressing changes. When asked about any type of advanced imaging all she has had it was a radiograph and has not had an MRI to this day. She has been treated since March 2024, with no improvements. She has been doing home dressing changes with Betadine. She denies trauma. Denies constitutional symptoms. Other pedal complaints at this time. Subjective Subjective Mrs. Bowman is a 69-year-old female presenting with her son today for follow-up evaluation of full-thickness wound and soft tissue growth to the left medial heel. She has been doing dressing changes discussed. She admits pain with shoe gear. She denies any drainage to the dressing. She is waiting for approval for her MRI to the left lower extremity. She is aware that she will need surgical intervention and is okay to move forward with that. Denies trauma. Denies constitutional symptoms. No other pedal complaints at this time. Objective Data Objective Data Vital Signs: Vital Signs Temp Pulse Resp BP O2 Del Method 97.2 F L 109 H 16 147/77 H Room Air 09/01/24 10:30 09/08/24 10:49 09/08/24 10:49 09/08/24 10:49 09/08/24 10:49 Oxygen Delivery Method Room Air Weight: 75.75 kg Body Mass Index (BMI) 31.5 Physical Exam Narrative Vascular: DP and PT pulses are palpable. CFT is brisk. Skin temperature is warm to warm from proximal ankles to distal digits. Nonpitting edema is appreciated to the left lower extremity. Neurological: Light touch intact. Protective station is present. Dermatological: Large soft tissue mass to the medial aspect of the heel of the left lower extremity measuring 3.5 x 2.3 x 1.5 cm. Evidence of full-thickness wound of the soft tissue mass measuring 1.1 x 1.5 x 0.1 cm. Excisional debridement down to and including subcutaneous tissue of the full-thickness wound and the soft tissue mass of the left lower extremity at the level of the heel with a number 5 mm dermal curette without incident. Predebridement measurement was eschar. Postdebridement measurement is 1.1 x 1.5 x 0.1 cm. Musculoskeletal: Mild palpatory tenderness appreciated to large soft tissue mass to the left heel. No pain with calf pressure. Debridement Note Debridement Note Debridement Free Text: Excisional debridement down to and including subcutaneous tissue of the full-thickness wound and the soft tissue mass of the left lower extremity at the level of the heel with a number 5 mm dermal curette without incident. Predebridement measurement was eschar. Postdebridement measurement is 1.1 x 1.5 x 0.1 cm. Post-Debridement Measurements and Additional Note: Post-Debridement Measurements/Treatment - Nurse 1 - General Ulcer Assessment Start: 09/01/24 10:21 Freq: Status: Active Protocol: ROEL.AYUSH Activity Type Activity Date Activity User E-sign Co-sign Detail Recorded Client Recorded Date Recorded By Document 09/01/24 10:30 KW [id number] 09/01/24 10:55 KW Document 09/08/24 10:49 KW [id number] 09/08/24 10:55 KW 09/01/24 09/08/24 10:30 10:49 - Today's Visit Information Type of service Initial Visit Follow-up Visit (Physician/FURNACE STOCK INSPECTOR ) Arrival Mode Ambulatory, Ambulatory, Walker Walker Accompanied by DAUGHTER Patient Identification Verified (Name & Yes Yes ) Height and Weight Height 5 ft 1 in Weight 75.75 kg Weight in Pounds 167.0 lbs Weight Measurement Method Estimated by Patient Body Mass Index (BMI) 31.5 31.5 BMI Classification Obese Obese BSA - Kay 1.75 Vital Signs Temperature (97.8 F-99.1 F) 97.2 F L Temperature Source Temporal Pulse Rate (60-100) 111 H 109 H Pulse Location Monitor Monitor Respiratory Rate (12-18) 16 16 Respiratory rate source Observation Observation Oxygen Delivery Method Room Air Room Air Blood Pressure (90/60-120/80) 155/83 H 147/77 H Blood Pressure Mean (mm Hg) 107 100 Source Monitor Monitor Position Semi-Fowlers Semi-Fowlers Blood Pressure Location Right Arm Left Arm History Since Last Visit- (Skip if this is Patient's initial visit) Have you changed medications since your No last visit? Any new allergies or adverse reactions No Had a fall/change in ADL's that may No increase risk of falls Signs or symptoms of abuse and/or No neglect since last visit Have you been in the hospital since your No last visit? Has dressing in place as prescribed Yes Has compression in place as prescribed N/A Has offloadiing in place as prescribed N/A Experienced any changes in pain level or No management Left Footwear Regular Shoe Regular Shoe Right Footwear Regular Shoe Regular Shoe Pain Scale: 0-10 Numeric Is Patient Pain Free? No Yes rt heel -Description Burning -Alleviating Factors/Interventions Medication, Medicate when due,Inactivity/ Resting Lower Extremity Assessment/ Foot Assessment/ Toe Nail Assessment Right -Posterior Tibial Doppler Monophasic -Dorsalis Pedis Doppler Monophasic -Hair Growth on Legs No -Hair Growth on Toes Yes -Temperature of Extremity Cool -Thick No -Discolored No -Deformed No -Improper Length & Hygeine No Left -Posterior Tibial Doppler Monophasic -Dorsalis Pedis Doppler Monophasic -Hair Growth on Legs No -Hair Growth on Toes Yes -Temperature of Extremity Cool -Capillary Refill Less than 3 Seconds -Thick No -Discolored No -Deformed No -Improper Length & Hygeine No Communication Assessment Preferred language [place] Heating And Cooling Systems Engineer Required No Able to Read Yes Able to Write Yes Communication Tools None Right Hearing Abillity Normal Left Hearing Abillity Normal Visual Assistive Devices Glasses Teaching Assessment Preferences Verbal,Written, Demonstration Barriers to Learning None Readiness To Learn Excellent Willingness to Engage in Self Management High Activies Readiness to Engage in Self Management High Activities Anxiety Level Calm Cooperation Cooperative Perception Coherent Interest in Health Problem Asks Questions Education Importance Acknowledges Need Does Patient Smoke tobacco or other No substances Smoking Status Never smoker Is Patient Diabetic No Functional Assessment Recent Decline in Ability to Perform Denies Any Declines Culture/Episcopal/Transportation Coordinator Cultural/Episcopal Needs that may affect No Treatment Plan Would you allow our hospital hazardous materials analyst to No meet you for the purpose of spiritual/ emotional support? Transportation Coordinator to contact place of taoism No WC - Nurse 1 - General Ulcer Measurement Start: 09/01/24 10:21 Freq: Status: Active Protocol: Activity Type Activity Date Activity User E-sign Co-sign Detail Recorded Client Recorded Date Recorded By Document 09/01/24 10:30 KW [id number] 09/01/24 10:55 KW Document 09/08/24 10:49 KW [id number] 09/08/24 10:55 KW 09/01/24 09/08/24 10:30 10:49 Wound Center Nurse 1 #1 LT MED HEEL -Current Size (cm) - Length 4 2 -Current Size (cm) - Width 2 4 -Current Size (cm) - Depth 0 0 -Total Square Cm 8 8 -Date of Last Picture (Recall this 09/01/24 09/08/24 field) -Exudate Amt Small Small -Exudate Type Serosanguineous Serosanguineous -Wound Margin Distinct, Distinct, Outline Outline Attached Attached -Granulation Amt Small (1-33%) Small (1-33%) -Granulation Quality Hyper- [place] granulation, [place] -Necrosis Amt Large (67-100%) Large (67-100%) -Necrotic Tissue Type Adherent Slough Adherent Slough -Texture ([place]-wound Skin Appearance) Assessed,Callus Assessed -Moisture ([place]-wound Skin Appearance) Assessed Assessed -Color ([place]-wound Skin Appearance) Assessed Assessed -Temperature ([place]-wound Skin No Abnormality No Abnormality Appearance) (Pt Warm) (Pt Warm) -Tenderness on Palpation ([place]-wound No No Skin Appearance) -Ulcer Cleansing Soap and Water Soap and Water -Foul Odor after Cleansing No No -Anesthetic Used 4% Lidocaine 4% Lidocaine Solution Solution Right Calf (cm) 34 Right Ankle (cm) 21 Point of measurement (cm from the medial 34.5 instep) Point of Measurement (cm from the medial 21 instep) WC - Nurse 2 - General Ulcer CM Notes Start: 09/01/24 10:21 Freq: Status: Active Protocol: Activity Type Activity Date Activity User E-sign Co-sign Detail Recorded Client Recorded Date Recorded By Document 09/01/24 11:12 DS [id number] 09/01/24 11:15 DS Edit Result 09/01/24 11:12 DS (1) [id number] 09/01/24 11:24 DS Document 09/08/24 11:06 JF [id number] 09/08/24 11:14 JF (1) #1 LT MED HEEL - Type of Procedure => Debridement - Clinical Debridement => Subcutaneous - Tissue Removed => Subcutaneous - Debridement - Subq, 1st 20sq cm => Yes 09/01/24 09/08/24 11:12 11:06 Wound Center Nurse 2 #1 LT MED HEEL -Time 11:12 11:12 -Correct Patient Yes Yes -Correct Side, Site, Position Yes Yes -Correct Procedure Yes Yes -Procedure Performed No Yes -Type of Procedure Debridement Debridement -Clinical Debridement Subcutaneous Subcutaneous -Tissue Removed Subcutaneous Subcutaneous -Post Debridement (cm) - Length 3.5 1.1 -Post Debridement (cm) - Width 2.3 1.5 -Post Debridement (cm) - Depth 1.5 0.1 -Total Square (Post) (cm) 8.05 1.65 -Area of Debridement (cm) - Length 3.5 1.1 -Area of Debridement (cm) - Width 2.3 1.5 -Total Square (Area) (cm) 8.05 1.65 -Tunneling No No -Undermining/Tunneling No No -Circular Undermining No No -Wound/Ulcer Outcome Not Healed Not Healed -Ulcer Cleansing Rinsed/ Rinsed/ Irrigated with Irrigated with Saline Saline -Foul Odor after Cleansing No No -Bioengineered Tissue No No -Bleeding Controlled with Pressure -Treatment Response Procedure Tolerated Well -Offloading No -Debridement - Subq, 1st 20sq cm Yes Yes Pain Scale: 0-10 Numeric Is Patient Pain Free? Yes Yes - Nurse 3 - General Ulcer D/C NN Start: 09/01/24 10:21 Freq: Status: Active Protocol: Activity Type Activity Date Activity User E-sign Co-sign Detail Recorded Client Recorded Date Recorded By Document 09/01/24 11:30 [id number] 09/01/24 11:35 Document 09/08/24 11:39 RB [id number] 09/08/24 11:41 RB 09/01/24 09/08/24 11:30 11:39 Wound Care Center Nurse 3 #1 LT MED HEEL -Ulcer Cleansing Not Cleansed betadine -Primary Dressing Applied Silvercel -Other Dressing ABD nurses hat -Primary Dressing Covered/Secured with Dry Gauze & Dry Gauze & Roll Gauze, Roll Gauze, Secured with Secured with Tape Tape -Silvercel 1 -Wound Comment(s) surgical shoe sized and applied on left foot Left -Lotion applied to leg before No compression wrap -Tubular Bandage Single Layer -Size of Tubigrip Used Size E -Size E ($) 1 Treatment Response Procedure Tolerated Well Pain Scale: 0-10 Numeric Is Patient Pain Free? Yes Yes WC - Visit Discharge Discharge Condition Stable Stable Ambulatory Status Ambulatory Ambulatory, Walker Transportation Private Auto Medication Reconcilliation completed & No provided to patient/care provider Clinical Summary of Care Provided Yes Assessment/Plan Assessment/Plan (1) Non-pressure chronic ulcer of left heel and midfoot with fat layer exposed: CODE(S): L97.422 - Non-pressure chronic ulcer of left heel and midfoot with fat layer exposed PLAN: Patient was examined and evaluated. All findings were discussed with the patient. All questions were answered to the patient's satisfaction. Excisional debridement down to and including subcutaneous tissue of the full-thickness wound and the soft tissue mass of the left lower extremity at the level of the heel with a number 5 mm dermal curette without incident. Predebridement measurement was eschar. Postdebridement measurement is 1.1 x 1.5 x 0.1 cm. Left extremities are clean and patted dry. Betadine paint was applied to the soft tissue mass followed by silver alginate dry sterile dressing and compression wrap. Patient's plain film radiographs show no evidence of bony involvement. We will move forward with a stat MRI of the left ankle to see if there is any soft tissue involvement prior to surgical removal of the soft tissue mass left lower extremity. The patient will continue every other day dressing changes as discussed. Follow-up at the wound care center with Dr. Wright in 1 week. 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
--- NOTE | 2024-09-08 13:54 | WC ---
PHOTO 09/08/24 RIGHT MEDIAL HEEL MASS
--- NOTE | 2024-09-21 14:55 | WC ---
No E&M charge needed since wound was debrided on this day by Dr Wright which shows on the superbill.
== END 2024-09-10 23:59 | disposition home or self-care (01) ==
LOC: WC 10:45
PROVIDERS: PCP Internal Medicine; Referring Provider Psychiatry & Neurology Neurology; Visit Provider Podiatrist Foot & Ankle Surgery
DX: E11.621 Type 2 diabetes mellitus with foot ulcer (principal); L97.422 Non-pressure chronic ulcer of left heel and midfoot with fat layer exposed; B07.0 Plantar wart; I10 Essential (primary) hypertension; E78.5 Hyperlipidemia, unspecified; D49.2 Neoplasm of unspecified behavior of bone, soft tissue, and skin
CPT/HCPCS: 11042; 73630; 99213; 99214; G0463

== ENCOUNTER → 2024-09-10 | Outpatient (CLI) | payer OTHER, SELFPAY ==
--- NOTE | 2024-09-10 12:42 | MRI_ITS ---
PROCEDURE: LOWER EXT JOINT ONLY W/WO CONT REASON FOR EXAM: Left ankle wound/mass. TECHNIQUE: MRI of the left ankle before and after IV contrast infusion CONTRAST: 15 mL Clariscan COMPARISON: None. FINDINGS Enhancing soft tissue mass/growth from the medial heel skin surface measuring 3.1 x 1.7 x 1 cm, suspicious for neoplasia. There is no significant growth into the subcutaneous tissues. No involvement of the adjacent calcaneal cortex or plantar fascia. The Achilles and plantar fascia are unremarkable. No periosteal reaction/periostitis. No marrow lesions or stress fractures identified. The peroneal tendons and medial flexor tendons are normal. Anterior extensor tendons are normal. Talofibular ligaments and deep tibiotalar ligament are intact. Diffuse moderate subcutaneous edema could represent cellulitis versus noninfectious causes of peripheral edema. No ankle joint effusion. MRI/Lower Ext Joint Only W/WO Cont IMPRESSION: Soft tissue mass from the medial heel skin surface measuring 3.1 x 1.7 x 1 cm, suspicious for neoplasm. No significant penetration into the subcutaneous tissues. No involvement of the adjacent calc aneus or plantar fascia. Reading Location: [facility]
== END | disposition home or self-care (01) ==
LOC: MRI 12:27
PROVIDERS: PCP Internal Medicine; Referring Provider Podiatrist Foot & Ankle Surgery; Visit Provider Podiatrist Foot & Ankle Surgery
DX: C76.52 Malignant neoplasm of left lower limb (principal)
CPT/HCPCS: 73723; A9575

== ENCOUNTER → 2024-09-17 | Outpatient (CLI) | payer OTHER, SELFPAY ==
[2024-09-17 16:38] LABS: Absolute Lymphocyte Count 1.79 X10^3/uL (0.83-4.51); Absolute Neutrophil Count 6.2 X10^3/uL (2.0-7.7); Basophil# 0.03 X10^3/uL; Basophil% 0.3 % (0-1); Eosinophil# 0.46 X10^3/uL; Hematocrit 38.6 % (37-47); Hemoglobin 11.6 g/dL (12.0-15.0); Lymphocyte # 1.79 X10^3/ul (0.83-4.51); Lymphocyte % 19.4 % (19-41); Mean Corp Hgb Conc 30.1 g/dL (32-36); Mean Corpuscular Hgb 25.7 pg (27.0-32.0); Mean Corpuscular Volume 85.6 fL (81-99); Mean Platelet Vol. 10.5 fl (6.2-12.0); Monocyte# 0.68 X10^3/uL; Monocyte% 7.4 % (0-10); NRBC Flagged by Analyzer 0 % (0-5); Neutrophil # 6.23 X10^3/uL (2.7-7.7); Neutrophil % 67.6 % (47-70); Platelet Count 470 K/mm3 (150-450); RBC Distribution Width CV 14.6 % (11.6-14.6); RBC Distribution Width SD 45.7 fl (35.1-43.9); Red Blood Count 4.51 M/mm3 (4.2-5.4); White Blood Count 9.2 K/mm3 (4.4-11.0)
[2024-09-17 17:05] LABS: ALB/GLOB Ratio 0.7 RATIO (0.9-2.4); AST(SGOT) 7 U/L (15-37); Alanine Aminotransfer ALT/SGPT 12 U/L (13-56); Albumin, Serum 3.4 g/dL (3.2-5.0); Alkaline Phosphatase 109 U/L (45-117); Anion Gap 10 (5-15); BUN 31 mg/dL (7-18); BUN/Creat Ratio 37.2 RATIO (10-20); Calcium,Total 10.2 mg/dL (8.5-10.1); Chloride 111 mmol/L (98-107); Creatinine, Serum 0.83 mg/dL (0.55-1.02); EST Glomerular Filtration Rate 72 mL/min (>60); Est Glom Filt Rate - Afr Amer 88 mL/min (>60); Globulin 4.8 g/dL (2.2-4.2); Glucose 189 mg/dL (74-106); Potassium 4.5 mmol/L (3.5-5.1); Protein, Total 8.2 g/dL (6.4-8.2); Sodium Level 143 mmol/L (136-145); Vitamin D,25 Hydroxy 28.1 ng/mL
[2024-09-19 16:32] LABS: Hemoglobin A1c 7.3 % (3.8-5.6)
== END | disposition home or self-care (01) ==
LOC: BIMLAB 15:26
PROVIDERS: PCP Internal Medicine; Referring Provider Internal Medicine; Visit Provider Internal Medicine
DX: E11.69 Type 2 diabetes mellitus with other specified complication (principal); E78.2 Mixed hyperlipidemia; M81.0 Age-related osteoporosis without current pathological fracture
CPT/HCPCS: 36415; 80053; 82306; 83036; 85025

== ENCOUNTER → 2024-09-23 | Outpatient (CLI) | payer OTHER, SELFPAY ==
[2024-09-27 08:07] LABS: Topiramate 14.1 ug/mL (2.0-25.0)
== END | disposition home or self-care (01) ==
LOC: MTLAB 09:44
PROVIDERS: PCP Internal Medicine; Referring Provider Psychiatry & Neurology Neurology; Visit Provider Psychiatry & Neurology Neurology
DX: G40.909 Epilepsy, unspecified, not intractable, without status epilepticus (principal)
CPT/HCPCS: 36415; 80201

== ENCOUNTER 2024-10-01 09:45 | Day surgery (SDC) | payer OTHER, SELFPAY ==
--- NOTE | 2024-09-30 08:52 | PAT.ANESEVAL ---
Pre-Assessment Diagnosis/Proposed Procedure Planned Operative Procedure(s): (L) Excision of soft tissue mass of the left foot with advancement flap closure. 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 When Was Last Pacemaker Check QUESTION #4 FULL TEXT: You/Your Family Experience fever (hyperthermia) with Anesthesia Last Oral Intake Last Oral intake: Last Oral Intake NPO since Meds taken in AM with sips of water? Meds patient instructed to take am of surgery PONV PONV - computer numerical control programmer: PONV - computer numerical control programmer Female Yes 09/30/24 08:27 HX of Motion Sickness No 09/30/24 08:27 HX of N/V After Surgery No 09/30/24 08:27 Non-Smoker Yes 09/30/24 08:27 Duration of Surgery greater No 09/30/24 08:27 than 60 minutes Number of Risk Factors 2 09/30/24 08:27 PONV Score Moderate Risk 09/30/24 08:27 Height & Weight Height & Weight: Anesthesia: Height & Weight Height 5 ft 1 in 09/17/24 14:11 Respiratory Assessment Respiratory Assessment - computer numerical control programmer: Respiratory Tract Infection Hx - computer numerical control programmer Hx Respiratory Tract Infection No 09/30/24 08:27 STOP Sleep Apnea STOP Sleep Apnea - computer numerical control programmer: STOP Sleep Apnea - computer numerical control programmer Hx Hypertension Yes: CONTROLLED ON MED 09/30/24 08:27 Hx Sleep Apnea No 09/30/24 08:27 CPAP BIPAP Do you snore loudly (louder No 09/30/24 08:27 than talking or can be heard Do you often feel tired/ No 09/30/24 08:27 fatigued/ sleepy during daytime? Has anyone observed you stop No 09/30/24 08:27 breathing during sleep? STOP Results Negative 09/30/24 08:27 QUESTION #5 FULL TEXT : Do you snore loudly (louder than talking or can be heard through closed doors)? Tobacco Use History Tobacco Use History - computer numerical control programmer: Tobacco Use History - computer numerical control programmer Tobacco Use Non-smoker 05/24/24 04:25 Smoking Status Never smoker 09/30/24 08:27 Hx Tobacco Use No 09/30/24 08:27 Years Smoking Packs Smoked per Day Smoking Cessation Date was within the last 15 years Hx Smoking Cessation Date Hx Smoking Cessation No 09/30/24 08:27 Counseling Hematologic Medial History Hematologic Hx - computer numerical control programmer: Hematologic Medical Hx - check weigher Hx of Blood Transfusion No 09/30/24 08:27 Hx of Transfusion in last 3 No 09/30/24 08:27 Months Date of Last Transfusion (if within last 3 months) Ever experience any problems No 09/30/24 08:27 with transfusion(s)? Specify any problems Hx of Preganancy in last 3 No 09/30/24 08:27 Months Nurse Filling Out Transfusion VCHRISTIN 09/30/24 08:27 & Questions: Date: 09/30/24 09/30/24 08:27 Time: 08:09/30/24 08:27 Patient unable to answer at this time (ie. confused, unrespo /Reproduction History /Reproductive History - computer numerical control programmer: /Reproductive Hx- computer numerical control programmer Hx Now Gestational Age (in weeks): EDC: Hx Hx Para Hx Section SAB Active Medications Active Medications: Current Medications Generic Name Dose Route Start Last Admin Trade Name Freq PRN Reason Stop Dose Admin Cefazolin Sodium 2 gm/ N/A 20 mls @ 400 mls/hr 10/01/24 11:30 IV 10/01/24 11:32 PREOP ONE [facility] Medical History (Updated 09/30/24 @ 08:27 by Luz Gacria) Post-menopausal History of steroid therapy Diabetes Walker as ambulation aid Non-smoker History of stress test History of echocardiogram Abnormal EKG Preoperative evaluation to rule out surgical contraindication Multinodular thyroid Thyroid nodule Open wound of heel Seizure disorder Hyperlipidemia Type 2 diabetes mellitus Blood glucose elevated Preventative health care Acute pain of both ears Tachycardia Impacted cerumen, right ear Health care maintenance Anemia Osteoporosis Psoriatic arthritis Arthritis History of seizures Hypertension Hypertension Home Medications ?Medication ?Instructions ?Recorded ?Last Taken ?Type acetaminophen 325 mg tablet 650 mg (2 x 325 mg) PO Q4H PRN PRN 09/08/17 Unknown Rx Headache/Temp>99F lisinopril 30 mg tablet See Rx Instructions .Route 08/20/24 Unknown Rx .COMPLEX blood pressure #90 tabs naproxen 500 mg tablet 500 mg PO BID PRN pain #60 tabs 08/26/24 Unknown Rx topiramate 100 mg tablet 100 mg PO BID #60 tabs 08/26/24 Unknown Rx prednisone 5 mg tablet 5 mg PO DAILY 09/30/24 Unknown History Allergy/AdvReac Type Severity Reaction Status Date / Time tramadol Allergy Severe seizures Verified 09/30/24 08:17 adalimumab (From Humira) Allergy Unknown unknown Verified 09/30/24 08:17 apremilast (From Otezla) Allergy Unknown unknown Verified 09/30/24 08:17 infliximab (From Remicade) Allergy Unknown unknown Verified 09/30/24 08:17 infliximab-dyyb (From AdvReac Unknown unknown Verified 09/30/24 08:17 Inflectra) leflunomide (From Arava) AdvReac Other Verified 09/30/24 08:17 methotrexate (Methotrexate) AdvReac Other Verified 09/30/24 08:17 sulfasalazine (Sulfasalazine) AdvReac Other Verified 09/30/24 08:17 Family History Father Myocardial infarction Surgical History (Updated 09/30/24 @ 08:27 by Luz Garcia) S/P foot surgery History of cataract surgery Social History Smoking Status: Never smoker alcohol intake: never substance use type: does not use what type of physical activity do you participate in: none Audit: Pertinent Findings Pertinent Findings EKG Perinent findings: Sinus tachycardia Nonspecific ST abnormality Stress test pertinent findings: Unremarkable findings, repeat not necessary Echo (EF%) pertinent findings: Unremarkable TTE (05/23/24) with EF of 70% Recommendation Anesthesia Recommendation Anesthesia recommendation: F/U recommended Follow up Details [place]/Pulmonary Imaging Recommendation: Yes [facility]/Pulmonary Imaging Rec Details: Repeat 12 Lead ECG
[2024-10-01] VITALS (9 sets, daily range): BP systolic 91–148; BP diastolic 64–111; PULSE 73–104; RESP 16–18; TEMP 36.1–36.9; O2SAT 97–100; BMI 29.7
--- NOTE | 2024-10-01 11:10 | PRE.ANES_ITS ---
ASA Classification* ASA Classification ASA Classification: 3 Assessment & Plan Anesthesia* Anesthesia Assessment Anesthesia Assessment: Discussed sedation and/or anesthesia options, risks, benefits, and alternatives with patient/parents/legal guardian/POA. Questions invited. The patient/parents/legal guardian/POA seems to understand and agrees to proceed with anesthesia plan. Reviewed the physical assessment, medical history, allergy history and patient home medications list prior to surgery/procedure/anesthetic and documented any changes. Performed airway and anesthesia risk assessments. Anesthesia Type Anesthesia Type: Spinal (per professional model request) History Source History Obtained from:: Patient, Chart and Significant Other (spouse and daughter) Anesthesia Focused Assessment* Temperature: 97.8 F Pulse Rate: 103 Blood Pressure: 148/64 Respiratory Rate: 16 Pulse Ox: 100 Oxygen Delivery Method: Room Air Airway Assessment Mouth opens: 2 cm Mallampati Score: II Teeth Condition: Caps/Crowns, Chipped/Broken and Loose Neck Range of motion (ROM): Limited ROM Comment: poor dentition Focused Labs Anesthesia Preop lab: CBC WBC 9.2 K/mm3 (4.4-11.0) 09/17/24 15:09/17/24 RBC 4.51 M/mm3 (4.2-5.4) 09/17/24 15:26 09/17/24 Hgb 11.6 g/dL (12.0-15.0) L 09/17/24 15:26 5 Hct 38.6 % (37-47) 09/17/24 15:09/17/24 Plt Count 470 K/mm3 (150-450) H 09/17/24 15:09/17/24 CHEMISTRY Potassium 4.5 mmol/L (3.5-5.1) 09/17/24 15:26 09/17/24 Sodium 143 mmol/L (136-145) 09/17/24 15:26 09/17/24 Magnesium 2.3 mg/dL (1.6-2.6) 06/21/24 08:43 06/21/24 Phosphorus 2.8 mg/dL (2.5-4.9) 05/24/24 05:44 05/24/24 BUN 31 mg/dL (7-18) H 09/17/24 15:26 09/17/24 Creatinine 0.83 mg/dL (0.55-1.02) 09/17/24 15:26 09/17/24 Glucose 189 mg/dL (74-106) H 09/17/24 15:26 09/17/24 POC Glucose 205 mg/dL (74-106) H 05/23/24 20:16 05/23/24 TSH 2.470 uIU/mL (0.358-3.740) 05/23/24 06:30 05/11 11/01 COAG PT 13.0 SECONDS (11.7-14.9) 05/23/24 06:30 Pre-Assessment Diagnosis/Proposed Procedure Planned Operative Procedure(s): (L) Excision of soft tissue mass of the left foot with advancement flap closure. Anesthesia History Anesthesia History - senior functional analyst: Anesthesia History - senior functional analyst Hx Hospitalization Yes: 05/2024 SEIZURE 09/30/24 08:27 Any Problems With Anesthesia No 09/30/24 08:27 Cholinesterase deficiency No 09/30/24 08:27 You/Your Family Experience No 09/30/24 08:27 fever (hyperthermia) with Relationship Recent Exposure to Contagious Yes 10/01/24 10:19 Disease Does patient have nerve No 09/30/24 08:27 stimulator Patient instructed to have device shut off --Does patient have Pacemaker No 10/01/24 10:19 or ICD? When Was Last Pacemaker Check QUESTION #4 FULL TEXT: You/Your Family Experience fever (hyperthermia) with Anesthesia Last Oral Intake Last Oral intake: Last Oral Intake NPO since 20:00 10/01/24 10:19 Meds taken in AM with sips of Yes 10/01/24 10:19 water? Meds patient instructed to take am of surgery PONV PONV - senior functional analyst: PONV - senior functional analyst Female Yes 09/30/24 08:27 HX of Motion Sickness No 09/30/24 08:27 HX of N/V After Surgery No 09/30/24 08:27 Non-Smoker Yes 09/30/24 08:27 Duration of Surgery greater No 09/30/24 08:27 than 60 minutes Number of Risk Factors 2 09/30/24 08:27 PONV Score Moderate Risk 09/30/24 08:27 Height & Weight Height & Weight: Anesthesia: Height & Weight Height 5 ft 1 in 10/01/24 10:19 Weight: 71.4 kg 10/01/24 10:19 Body Mass Index (BMI) 29.7 10/01/24 10:19 Respiratory Assessment Respiratory Assessment - senior functional analyst: Respiratory Tract Infection Hx - senior functional analyst Hx Respiratory Tract Infection No 09/30/24 08:27 STOP Sleep Apnea STOP Sleep Apnea - senior functional analyst: STOP Sleep Apnea - senior functional analyst Hx Hypertension Yes: CONTROLLED ON MED 09/30/24 08:27 Hx Sleep Apnea No 09/30/24 08:27 CPAP BIPAP Do you snore loudly (louder No 09/30/24 08:27 than talking or can be heard Do you often feel tired/ No 09/30/24 08:27 fatigued/ sleepy during daytime? Has anyone observed you stop No 09/30/24 08:27 breathing during sleep? STOP Results Negative 09/30/24 08:27 QUESTION #5 FULL TEXT : Do you snore loudly (louder than talking or can be heard through closed doors)? Tobacco Use History Tobacco Use History - senior functional analyst: Tobacco Use History - senior functional analyst Tobacco Use Non-smoker 05/24/24 04:25 Smoking Status Never smoker 09/30/24 08:27 Hx Tobacco Use No 09/30/24 08:27 Years Smoking Packs Smoked per Day Smoking Cessation Date was within the last 15 years Hx Smoking Cessation Date Hx Smoking Cessation No 09/30/24 08:27 Counseling Hematologic Medial History Hematologic Hx - senior functional analyst: Hematologic Medical Hx - probate paralegal Hx of Blood Transfusion No 09/30/24 08:27 Hx of Transfusion in last 3 No 09/30/24 08:27 Months Date of Last Transfusion (if within last 3 months) Ever experience any problems No 09/30/24 08:27 with transfusion(s)? Specify any problems Hx of Preganancy in last 3 No 09/30/24 08:27 Months Nurse Filling Out Transfusion VCHRISTIN 09/30/24 08:27 & Questions: Date: 09/30/24 09/30/24 08:27 Time: 08:28 09/30/24 08:27 Patient unable to answer at this time (ie. confused, unrespo /Reproduction History /Reproductive History - senior functional analyst: /Reproductive Hx- senior functional analyst Hx Now Gestational Age (in weeks): EDC: Hx Hx Para Hx Section SAB Active Medications Active Medications: Current Medications Generic Name Dose Route Start Last Admin Trade Name Freq PRN Reason Stop Dose Admin Cefazolin Sodium 2 gm/ N/A 20 mls @ 400 mls/hr 10/01/24 11:30 IV 10/01/24 11:32 PREOP ONE Sodium Chloride 1,000 mls @ 15 mls/hr 10/01/24 10:05 IV 10/06/24 23:24 .Q48H [facility] Protocol PFSH Medical History (Updated 09/30/24 @ 08:27 by Luz Garcia) Post-menopausal History of steroid therapy Diabetes Walker as ambulation aid Non-smoker History of stress test History of echocardiogram Abnormal EKG Preoperative evaluation to rule out surgical contraindication Multinodular thyroid Thyroid nodule Open wound of heel Seizure disorder Hyperlipidemia Type 2 diabetes mellitus Blood glucose elevated Preventative health care Acute pain of both ears Tachycardia Impacted cerumen, right ear Health care maintenance Anemia Osteoporosis Psoriatic arthritis Arthritis History of seizures Hypertension Hypertension Home Medications ?Medication ?Instructions ?Recorded ?Last Taken ?Type acetaminophen 325 mg tablet 650 mg (2 x 325 mg) PO Q4H PRN PRN 09/08/17 Unknown Rx Headache/Temp>99F lisinopril 30 mg tablet See Rx Instructions .Route 0 08/20/24 Unknown Rx .COMPLEX blood pressure #90 tabs naproxen 500 mg tablet 500 mg PO BID PRN pain #60 t abs 08/26/24 Unknown Rx topiramate 100 mg tablet 100 mg PO BID #60 tabs 08/2610/01/24 06:00 Rx prednisone 5 mg tablet 5 mg PO DAILY 09/30/2410/01 06:00 History Allergy/AdvReac Type Severity Reaction Status Date / Time tramadol Allergy Severe seizures Verified 10/01/24 10:17 adalimumab (From Humira) Allergy Unknown unknown Verified 10/01/24 10:17 apremilast (From Otezla) Allergy Unknown unknown Verified 10/01/24 10:17 infliximab (From Remicade) Allergy Unknown unknown Verified 10/01/24 10:17 infliximab-dyyb (From AdvReac Unknown unknown Verified 10/01/24 10:17 Inflectra) leflunomide (From Arava) AdvReac Other Verified 10/01/24 10:17 methotrexate (Methotrexate) AdvReac Other Verified 10/01/24 10:17 sulfasalazine (Sulfasalazine) AdvReac Other Verified 10/01/24 10:17 Family History Father Myocardial infarction Surgical History (Updated 09/30/24 @ 08:27 by Luz Garcia) S/P foot surgery History of cataract surgery Social History Smoking Status: Never smoker alcohol intake: never substance use type: does not use what type of physical activity do you participate in: none Review of Systems (Anesthesia) ROS Narrative System reviewed and no additional complaints, except as documented.
[2024-10-01 11:16] LABS: Bedside Glucose 153 mg/dL (74-106)
[2024-10-01] MEDS: 0.9% Normal Saline (1000mL) 1,000 ML 15 ML IV (11:16)
--- NOTE | 2024-10-01 11:28 | OP.PCM_ITS ---
Problems Associated Problem List Diagnoses (1) Neoplasm of unspecified behavior of bone, soft tissue, and skin: (2) Non-pressure chronic ulcer of left heel and midfoot with fat layer exposed: Operative Report (Standard) Operative Information Date of Procedure: 10/01/24 Pre-Operative Diagnosis: 1. Benign skin lesion of unknown origin, left foot 2. Full-thickness wound down to subcutaneous tissue, left foot Post-Operative Diagnosis: Same as preoperative diagnosis Surgery/Procedure Performed: Procedure #1: Excision of soft tissue mass, left foot Procedure #2: Advancement flap closure, left foot educational assistant: Yes Pipefitter Welder: Elkin Vasquez PGY1 Tasks completed by assistant professor of economics: Opening & closing and Dissecting tissue Type of Anesthesia: Epidural and Local RN Documented Start/Stop Times: Operation Date: 10/01/24 11:30 Case Time Into Pre-Op 10/01/24 09:56 Anesthesia Start 10/01/24 11:35 Into Room 10/01/24 11:35 Procedure Start 10/01/24 11:52 Procedure End 10/01/24 12:42 Anesthesia End 10/01/24 12:47 Out of Room 10/01/24 12:47 Into Recovery 10/01/24 12:52 Procedure Start Time: 11:52 Procedure Stop Time: 12:42 Select all DRAINS/GRAFTS/IMPLANTS that apply: None Special Medications: Per anesthesia Estimated Blood Loss: 40 mL Fluids Replaced: For anesthesia Specimen collected: Yes Description of specimen(s) removed: Frozen section: Plantar verruca Description of surgery: Indications For Operation: Mrs. Bowman is a 69-year-old female who was admitted to [facility] for left foot surgery secondary to benign neoplasm of unknown origin. Patient is well-known to me at the wound care center has been followed up with a full-thickness wound and soft tissue mass to the left heel. Due to the concern for a neoplasm the patient underwent an MRI that suggested concern for neoplasm but no involvement of bone. Due to the increased pain and size of the mass it was deemed necessary at this time to take the patient the operating room to perform the above procedure. Chart review consent signed. Due to increase in soft tissue mass of the left foot as well as pain with weightbearing, it is deemed necessary at this time to take the patient the operating room performed above procedure to help relieve her constant pain and see whether or not the patient is dealing with a neoplasm versus benign neoplasm. The nature of the problem, anticipated procedures, postop recovery/convalences and risk/complications include but not limited to infection, wound healing complications, digital amputation, hypertrophic scarring, numbness, tingling, chronic pain, CRPS, over and under correction, recurrence of deformity, DVT and or PE and the need for further surgery have been discussed in great detail with the patient. All questions have been answered to the patient's satisfaction. There are no guarantees given as to the outcome of the procedure. Description of Procedure: Under mild sedation, the patient was brought into the operating room and placed on the operating table in supine position. Once the patient was under spinal anesthesia, the left lower extremity was blocked using approximately 20 cc 0.5% Marcaine plain. Next, a well-padded calf tourniquet was applied to the left lower extremity. Next, the left lower extremity was prepped and draped in normal aseptic manner. Next, a timeout was then undertaken verifying the correct patient, extremity, visibility of preoperative markings, availability of the equipment. Next, attention was directed to the left lower extremity. Using a foreign Esmarch, left lower extremity was exsanguinated and elevated to 60 degrees for 1 minute. Procedure #1: Excision of soft tissue mass, left foot Next, attention was directed to the left lower extremity medial heel where there is evidence of a large walnut sized soft tissue mass. Using a sterile skin marker the incision was marked out circumferentially around the soft tissue mass. Next, using a #15 blade a full-thickness incision down to subcutaneous tissue was performed without incident. Littler scissors were used to continue sharp and blunt dissection down to level of subcutaneous tissue removing the soft tissue mass in total. A 12:00 and 3:00 large and small 2-0 silk were applied and the soft tissue mass was sent off to pathology. At approximately 20 minutes after removal of the soft tissue mass, pathology had diagnosed with a aggressive form of plantar verruca. There is no concern for neoplasm at this time. The area was flushed with copious normal saline. Gelfoam was packed for hemostasis. At this time the tourniquet was deflated and reperfusion was noted instantly to the left heel. All bleeders were cauterized and ligated as necessary. Procedure #2: Advancement flap closure, left foot Next, the surrounding tissue was undermined to allow for advancement flap closure. Again the full-thickness incision was flushed with copious normal saline. The subcutaneous tissue was reapproximated closed using 2-0 Vicryl and running suture technique. The skin was advanced and flap closed using a combination of retention suture, horizontal and vertical mattress suture with 2- 0 nylon. The left lower extremities were cleaned and patted dry. Betadine soaked Adaptic was applied to the incision followed by dry sterile dressing, ABD and a single layer Roe compression bandage was donned to left lower extremity. The patient tolerated the procedure and anesthesia well and apparent satisfactory condition and was transported to the PACU for further monitoring prior to discharge home. Vital signs stable and vascular status intact to all digits bilateral. Post Operative Plan: Weightbearing: Partial weightbearing with toe-touch to the left foot with surgical shoe. Full weightbearing right lower extremity. Antibiotics: 2 g Ancef through the IV DVT Prophylaxis: Not needed Rowley: None Dressing: Betadine soaked Adaptic, dry sterile dressing, ABD, single-layer Roe compression bandage, left lower extremity Pain Medication: 650 mg Tylenol every 8 hours. Follow-up: Patient will follow-up in 1 week at the wound care center for [facility]. Surgical Findings: Complete removal of the soft tissue mass with diagnosis via pathology as verruca plantaris. No concern for neoplasm at this time. Complications Complications: No Admit VTE Documentation VTE Present on Admission: No VTE Mechan Device Prophylaxis: SCD's VTE Pharm Prophylaxis ordered?: Yes
--- NOTE | 2024-10-01 11:30 | LES_PTH ---
PATIENT: MILIND DAWSON LOC: [facility] [place] U#:[id number] AGE/SX: 69/F ROOM: RE10/01/[address]: Dr. Thompson Wright DPM : 1955 BED: DIS: 10/01/2024 SPEC #: [id number] RECD: 10/01/24 13:02 STATUS: ZOIE RESagar #: [id number] IAN: 10/01/24 11:[address]: Thompson Wright DEPT: SURGICAL PATHOLOGY RECD BY: Clifton Pires ENTERED: 10/01/24 13:03 SP TYPE: Lesion OTHR DR: Dr. Danny Herrera MD Tissues: Skin of foot, NOS Procedures: Frozen Section (charge) Surgery Specimen Level IV HEADER OPERATION: Excision of soft tissue mass of left foot with advancement PRE-OP DIAGNOSIS: Left foot neoplasm of unknown origin TISSUE SUBMITTED: Left foot neoplasm, long stitch -12o'clock, short stitch - 3o'clock FROZEN SECTION DIAGNOSIS Left foot lesion, excisional biopsy: Verrucous keratosis, negative for carcinoma (community engagement representative sections find pending permanent sections). 10/01/2024 MICROSCOPIC DIAGNOSIS Left foot lesion, excisional biopsy: Verrucous keratosis. Negative for malignancy. See comment. 10/04/2024 COMMENT Focal ulceration with associated acute inflammation is noted. Bacterial colonization is also noted in the superficial epithelial layers. MICROSCOPIC DESCRIPTION Slides are reviewed. GROSS DESCRIPTION Received fresh for frozen section diagnosis labeled with the patient's name is a specimen designated Left foot neoplasm. The specimen consists of a piece of skin with underlying tissue measuring 4 x 1.5cm and up to 1.5cm in thickness. The skin surface shows verrucous lesions. The specimen is oriented as follows: long stitch- 12o'clock, short stitch- 3 o'clock. The specimen is inked as follows: 12o'clock-black, 6o'clock -blue, 3o'clock tip- yellow and 9o'clock tip- green. The specimen is serially sectioned and submitted entirely in seven cassettes as follows: 1- 3&6o'clockmaragins, 2&3- community engagement representative sections from the central portion of the specimen (cassettes 1-3 are submitted for frozen section diagnosis), 4-7- rest of the specimen. SJ.mr 10/01/2024 TC:5 CPT:[id number],[id number]
[2024-10-01] MEDS: Cefazolin 2 GM in Syringe IV (11:39)
[2024-10-01] MEDS: Bupivacaine Mpf 0.5% 30 ML VIAL (11:50)
--- NOTE | 2024-10-01 12:53 | PCM.POST.ANE ---
Anesthesia: Postop Eval I Current Vital Signs Temperature: 98.4 F Pulse Rate: 90 Blood Pressure: 141/94 Respiratory Rate: 18 Pulse Ox: 98 Oxygen Delivery Method: Room Air Assessment Airway patent: Yes Spontaneous unlabored respirations: Yes Mental status: Awake and Calm nausea: No Vomiting: No Anesthesia Complication: No Fluid Hydration Crystalloid volume administer (ml): 700 Total IV fluid infused: 700 Progress Note Anesthesia document: Postop Eval 1 completed: Yes
== END 2024-10-01 16:06 | disposition home or self-care (01) ==
LOC: SDC 09:48 → AC 09:49
PROVIDERS: PCP Internal Medicine; Referring Provider Podiatrist Foot & Ankle Surgery; Visit Provider Podiatrist Foot & Ankle Surgery
PROC: (CPT 11424; principal; 2024-10-01 11:15)
DX: B07.0 Plantar wart (principal); E11.621 Type 2 diabetes mellitus with foot ulcer; L97.422 Non-pressure chronic ulcer of left heel and midfoot with fat layer exposed; M06.9 Rheumatoid arthritis, unspecified; E11.69 Type 2 diabetes mellitus with other specified complication; E78.2 Mixed hyperlipidemia; I10 Essential (primary) hypertension; Z79.899 Other long term (current) drug therapy; M79.672 Pain in left foot
CPT/HCPCS: 11424; 14040; 00400; 82962; 88305; 88331; 93005; J2405

== ENCOUNTER 2024-10-05 20:34 | Emergency (ER) | payer OTHER, SELFPAY ==
[2024-10-05 20:35] VITALS: BP 168/84; PULSE 106; RESP 15; TEMP 36.4; O2SAT 99
== END 2024-10-05 21:51 | disposition left against medical advice (07) ==
LOC: ED 21:53
PROVIDERS: PCP Internal Medicine
DX: Z53.21 Procedure and treatment not carried out due to patient leaving prior to being seen by health care provider (principal)

== ENCOUNTER 2024-10-06 11:00 | Outpatient (RCR) | payer OTHER, SELFPAY ==
[2024-09-11 02:42] VITALS: BP 147/77; PULSE 109; RESP 16; TEMP 36.2; BMI 31.5
[2024-09-15 10:48] VITALS: BP 145/63; PULSE 114; RESP 16; TEMP 36.3; BMI 31.5
--- NOTE | 2024-09-15 13:33 | PCM.WC.PN ---
History of Present Illness Date of Service: 09/15/24 Chief Complaint: Left foot wound History of Wound: Chronic foot wound Progress of Wound: Full-thickness wound with soft tissue mass left foot Subjective Subjective Mrs. Bowman is a 69-year-old female presented wound care center today for full-thickness wound to the left heel as well as soft tissue mass to left lower extremity. Patient has received her MRI and is here to anticipate results. We are planning for surgical intervention in the next upcoming weeks. I did educate the patient on risk and benefits of the surgery. She is okay to move forward with a surgical intervention to remove the soft tissue mass. I educated the patient on the process. She admits to pain with shoe gear. Denies trauma. She is doing home dressing changes. No other pedal complaints at this time. Objective Data Objective Data Vital Signs: Vital Signs Temp Pulse Resp BP O2 Del Method 97.3 F L 114 H 16 145/63 H Room Air 09/15/24 10:48 09/15/24 10:48 09/15/24 10:48 09/15/24 10:48 09/15/24 10:48 Oxygen Delivery Method Room Air Weight: 75.75 kg Body Mass Index (BMI) 31.5 Physical Exam Narrative Vascular: DP and PT pulses are palpable. CFT is brisk. Skin temperature is warm to warm from proximal ankles to distal digits. Nonpitting edema is appreciated to the left lower extremity. Neurological: Light touch intact. Protective station is present. Dermatological: Large soft tissue mass to the medial aspect of the heel of the left lower extremity measuring 3.5 x 2.3 x 1.5 cm. Evidence of full-thickness wound of the soft tissue mass measuring 3.2 x 1.5 x 0.1 cm. Excisional debridement down to and including subcutaneous tissue of the full-thickness wound and the soft tissue mass of the left lower extremity at the level of the heel with a number 5 mm dermal curette without incident. Predebridement measurement was eschar. Postdebridement measurement is 3.2 x 1.5 x 0.1 cm. Musculoskeletal: Mild palpatory tenderness appreciated to large soft tissue mass to the left heel. No pain with calf pressure. Debridement Note Debridement Note Debridement Free Text: Excisional debridement down to and including subcutaneous tissue of the full-thickness wound and the soft tissue mass of the left lower extremity at the level of the heel with a number 5 mm dermal curette without incident. Predebridement measurement was eschar. Postdebridement measurement is 3.2 x 1.5 x 0.1 cm. Post-Debridement Measurements and Additional Note: Post-Debridement Measurements/Treatment - Nurse 1 - General Ulcer Assessment Start: 09/15/24 10:46 Freq: Status: Active Protocol: DERRICK Activity Type Activity Date Activity User E-sign Co-sign Detail Recorded Client Recorded Date Recorded By Document 09/15/24 10:48 KW [id number] 09/15/24 10:54 KW 09/15/24 10:48 WC - Today's Visit Information Type of service Follow-up Visit (Physician/TREATMENT SUPERVISOR ) Arrival Mode Ambulatory, Walker Patient Identification Verified (Name & Yes ) Height and Weight Body Mass Index (BMI) 31.5 BMI Classification Obese Vital Signs Temperature (97.8 F-99.1 F) 97.3 F L Temperature Source Temporal Pulse Rate (60-100) 114 H Pulse Location Monitor Respiratory Rate (12-18) 16 Respiratory rate source Observation Oxygen Delivery Method Room Air Blood Pressure (90/60-120/80) 145/63 H Blood Pressure Mean (mm Hg) 90 Source Monitor Position Sitting Blood Pressure Location Left Arm History Since Last Visit- (Skip if this is Patient's initial visit) Have you changed medications since your No last visit? Any new allergies or adverse reactions No Had a fall/change in ADL's that may No increase risk of falls Signs or symptoms of abuse and/or No neglect since last visit Have you been in the hospital since your No last visit? Has dressing in place as prescribed Yes Has compression in place as prescribed N/A Has offloadiing in place as prescribed N/A Left Footwear Regular Shoe Right Footwear Regular Shoe Pain Scale: 0-10 Numeric Is Patient Pain Free? Yes - Nurse 1 - General Ulcer Measurement Start: 09/15/24 10:46 Freq: Status: Active Protocol: Activity Type Activity Date Activity User E-sign Co-sign Detail Recorded Client Recorded Date Recorded By Document 09/15/24 10:48 KW [id number] 09/15/24 10:54 KW 09/15/24 10:48 Wound Center Nurse 1 #1 LT MED HEEL -Current Size (cm) - Length 2 -Current Size (cm) - Width 3.4 -Current Size (cm) - Depth 0 -Total Square Cm 6.8 -Exudate Amt Small -Exudate Type Serosanguineous -Wound Margin Indistinct, Non -Visible -Granulation Amt Small (1-33%) -Granulation Quality Hyper- granulation, [place] -Necrosis Amt Large (67-100%) -Necrotic Tissue Type Adherent Slough -Texture ([place]-wound Skin Appearance) Assessed,Callus -Moisture ([place]-wound Skin Appearance) Assessed -Color ([place]-wound Skin Appearance) Assessed -Temperature ([place]-wound Skin No Abnormality Appearance) (Pt Warm) -Tenderness on Palpation ([place]-wound No Skin Appearance) -Ulcer Cleansing Soap and Water -Foul Odor after Cleansing No WC - Nurse 2 - General Ulcer CM Notes Start: 09/15/24 10:46 Freq: Status: Active Protocol: Activity Type Activity Date Activity User E-sign Co-sign Detail Recorded Client Recorded Date Recorded By Document 09/15/24 11:15 MATTHEW [id number] 09/15/24 11:20 MATTHEW 09/15/24 11:15 Wound Center Nurse 2 -Time 11:16 -Correct Patient Yes -Correct Side, Site, Position Yes -Correct Procedure Yes -Procedure Performed Yes -Type of Procedure Debridement -Clinical Debridement Subcutaneous -Tissue Removed Subcutaneous -Post Debridement (cm) - Length 3.2 -Post Debridement (cm) - Width 1.5 -Post Debridement (cm) - Depth 0.1 -Total Square (Post) (cm) 4.80 -Area of Debridement (cm) - Length 3.2 -Area of Debridement (cm) - Width 1.5 -Total Square (Area) (cm) 4.80 -Tunneling No -Undermining/Tunneling No -Circular Undermining No -Wound/Ulcer Outcome Not Healed -Ulcer Cleansing Rinsed/ Irrigated with Saline -Foul Odor after Cleansing No -Bioengineered Tissue No -Bleeding Controlled with Pressure -Treatment Response Procedure Tolerated Well -Offloading No -Debridement - Subq, 1st 20sq cm Yes Pain Scale: 0-10 Numeric Is Patient Pain Free? Yes ROEL - Nurse 3 - General Ulcer D/C NN Start: 09/15/24 10:46 Freq: Status: Active Protocol: Activity Type Activity Date Activity User E-sign Co-sign Detail Recorded Client Recorded Date Recorded By Document 09/15/24 11:36 KW [id number] 09/15/24 11:36 KW 09/15/24 11:36 Wound Care Center Nurse 3 #1 LT MED HEEL -Other Dressing paint betadine -Primary Dressing Covered/Secured with Dry Gauze & Roll Gauze, Secured with Tape Pain Scale: 0-10 Numeric Is Patient Pain Free? Yes WC - Visit Discharge Discharge Condition Stable Ambulatory Status Ambulatory Transportation Private Auto Medication Reconcilliation completed & No provided to patient/care provider Clinical Summary of Care Provided Yes Assessment/Plan Assessment/Plan (1) Non-pressure chronic ulcer of left heel and midfoot with fat layer exposed: CODE(S): L97.422 - Non-pressure chronic ulcer of left heel and midfoot with fat layer exposed PLAN: Patient was examined and evaluated. All findings were discussed with the patient. All questions were answered to the patient's satisfaction. Excisional debridement down to and including subcutaneous tissue of the full-thickness wound and the soft tissue mass of the left lower extremity at the level of the heel with a number 5 mm dermal curette without incident. Predebridement measurement was eschar. Postdebridement measurement is 3.2 x 1.5 x 0.1 cm. Left lower extremities were cleaned and patted dry. The area was dressed with Betadine paint dry sterile dressing and compression wrap. Review of the patient's MRI showed concern for a soft tissue neoplasm. There is no evidence of bone or plantar fascial involvement of the soft tissue mass. Plan for surgery will be 09/23/2024 at 7:30 AM at [facility]. Patient will follow-up at the wound care center for continued evaluation and treatment. All risk and benefits were discussed with the patient great detail. Follow-up at the wound care center with Dr. Wright in 1 week. 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
[2024-09-22 10:14] VITALS: BP 140/66; PULSE 107; RESP 20; TEMP 36.3; BMI 31.5
--- NOTE | 2024-09-22 14:18 | PN.PCM_ITS ---
History of Present Illness Date of Service: 09/22/24 Chief Complaint: Left foot wound History of Wound: Chronic foot wound Progress of Wound: Full-thickness wound with soft tissue mass left foot Subjective Subjective Mrs. Bowman is a 69-year-old female presenting the wound care center today for full-thickness wound and soft tissue mass to the left heel. Still waiting on medical clearance for surgical intervention. I did educate the patient that I am okay with going under epidural/spinal anesthesia if she is okay to be awake during the procedure. Will relay this information to her primary doctor to see if we get medical clearance. Otherwise she has been doing dressing changes as discussed. Denies trauma. Denies constitutional symptoms. No other pedal complaints at this time. Objective Data Objective Data Vital Signs: Vital Signs Temp Pulse Resp BP O2 Del Method 97.3 F L 107 H 20 H 140/66 H Room Air 09/22/24 10:14 09/22/24 10:14 09/22/24 10:14 09/22/24 10:14 09/15/24 10:48 Oxygen Delivery Method Room Air Weight: 75.75 kg Body Mass Index (BMI) 31.5 Physical Exam Narrative Vascular: DP and PT pulses are palpable. CFT is brisk. Skin temperature is warm to warm from proximal ankles to distal digits. Nonpitting edema is appreciated to the left lower extremity. Neurological: Light touch intact. Protective station is present. Dermatological: Large soft tissue mass to the medial aspect of the heel of the left lower extremity measuring 3.5 x 2.3 x 1.5 cm. Evidence of full-thickness wound of the soft tissue mass measuring 0.8 x 0.9 x 0.1 cm. Excisional debridement down to and including subcutaneous tissue of the full- thickness wound and the soft tissue mass of the left lower extremity at the level of the heel with a number 5 mm dermal curette without incident. Predebridement measurement was eschar. Postdebridement measurement is 0.8 x 0.9 x 0.1 cm. Musculoskeletal: Mild palpatory tenderness appreciated to large soft tissue mass to the left heel. No pain with calf pressure. Debridement Note Debridement Note Debridement Free Text: Excisional debridement down to and including subcutaneous tissue of the full-thickness wound and the soft tissue mass of the left lower extremity at the level of the heel with a number 5 mm dermal curette without incident. Predebridement measurement was eschar. Postdebridement measurement is 0.8 x 0.9 x 0.1 cm. Post-Debridement Measurements and Additional Note: Post-Debridement Measurements/Treatment WC - Nurse 1 - General Ulcer Assessment Start: 09/15/24 10:46 Freq: Status: Active Protocol: ROEL.LOWMELANIA Activity Type Activity Date Activity User E-sign Co-sign Detail Recorded Client Recorded Date Recorded By Document 09/15/24 10:48 KW [id number] 09/15/24 10:54 KW Document 09/22/24 10:14 DL [id number] 09/22/24 10:29 DL 09/15/24 09/22/24 10:48 10:14 WC - Today's Visit Information Type of service Follow-up Visit Follow-up Visit (Physician/NOUGAT CANDY MAKER HELPER (Physician/NOUGAT CANDY MAKER HELPER ) ) Arrival Mode Ambulatory, Ambulatory, Walker Wheelchair Transfer Assistance None Patient Identification Verified (Name & Yes Yes ) Patient Requires Transmission-Based No Precautions Height and Weight Body Mass Index (BMI) 31.5 31.5 BMI Classification Obese Obese Vital Signs Temperature (97.8 F-99.1 F) 97.3 F L 97.3 F L Temperature Source Temporal Temporal Pulse Rate (60-100) 114 H 107 H Pulse Location Monitor Monitor Respiratory Rate (12-18) 16 20 H Respiratory rate source Observation Observation Oxygen Delivery Method Room Air Blood Pressure (90/60-120/80) 145/63 H 140/66 H Blood Pressure Mean (mm Hg) 90 90 Source Monitor Monitor Position Sitting Blood Pressure Location Left Arm History Since Last Visit- (Skip if this is Patient's initial visit) Have you changed medications since your No No last visit? Any new allergies or adverse reactions No No Had a fall/change in ADL's that may No No increase risk of falls Signs or symptoms of abuse and/or No No neglect since last visit Have you been in the hospital since your No No last visit? Has dressing in place as prescribed Yes Yes Has compression in place as prescribed N/A N/A Has offloadiing in place as prescribed N/A Yes Experienced any changes in pain level or No management Left Footwear Regular Shoe Slipper Right Footwear Regular Shoe Slipper Pain Scale: 0-10 Numeric Is Patient Pain Free? Yes Yes - Nurse 1 - General Ulcer Measurement Start: 09/15/24 10:46 Freq: Status: Active Protocol: Activity Type Activity Date Activity User E-sign Co-sign Detail Recorded Client Recorded Date Recorded By Document 09/15/24 10:48 KW [id number] 09/15/24 10:54 KW Document 09/22/24 10:14 DL [id number] 09/22/24 10:29 DL 09/15/24 09/22/24 10:48 10:14 Wound Center Nurse 1 #1 LT MED HEEL -Current Size (cm) - Length 2 3.2 -Current Size (cm) - Width 3.4 1.5 -Current Size (cm) - Depth 0 0.1 -Total Square Cm 6.8 4.80 -Photo Taken Yes -Exudate Amt Small None Present -Exudate Type Serosanguineous -Wound Margin Indistinct, Non Thickened -Visible -Granulation Amt Small (1-33%) None Present (0 %) -Granulation Quality Hyper- granulation, [place] -Necrosis Amt Large (67-100%) None Present (0 %) -Necrotic Tissue Type Adherent Slough -Structure Exposed N/A -Texture ([place]-wound Skin Appearance) Assessed,Callus Scarring -Moisture ([place]-wound Skin Appearance) Assessed No Abnormality -Color ([place]-wound Skin Appearance) Assessed No Abnormality -Temperature ([place]-wound Skin No Abnormality No Abnormality Appearance) (Pt Warm) (Pt Warm) -Tenderness on Palpation ([place]-wound No No Skin Appearance) -Ulcer Cleansing Soap and Water Soap and Water -Foul Odor after Cleansing No -Anesthetic Used 4% Lidocaine Solution WC - Nurse 2 - General Ulcer CM Notes Start: 09/15/24 10:46 Freq: Status: Active Protocol: Activity Type Activity Date Activity User E-sign Co-sign Detail Recorded Client Recorded Date Recorded By Document 09/15/24 11:15 JF [id number] 09/15/24 11:20 JF Document 09/22/24 11:01 BM [id number] 09/22/24 11:07 BM 09/15/24 09/22/24 11:15 11:01 Wound Center Nurse 2 #1 LT MED HEEL -Time 11:16 11:01 -Correct Patient Yes Yes -Correct Side, Site, Position Yes Yes -Correct Procedure Yes Yes -Procedure Performed Yes Yes -Type of Procedure Debridement Debridement -Clinical Debridement Subcutaneous Subcutaneous -Tissue Removed Subcutaneous Subcutaneous -Post Debridement (cm) - Length 3.2 0.8 -Post Debridement (cm) - Width 1.5 0.9 -Post Debridement (cm) - Depth 0.1 0.1 -Total Square (Post) (cm) 4.80 0.72 -Area of Debridement (cm) - Length 3.2 0.8 -Area of Debridement (cm) - Width 1.5 0.9 -Total Square (Area) (cm) 4.80 0.72 -Tunneling No No -Undermining/Tunneling No No -Circular Undermining No No -Wound/Ulcer Outcome Not Healed Not Healed -Ulcer Cleansing Rinsed/ Rinsed/ Irrigated with Irrigated with Saline Saline -Foul Odor after Cleansing No No -Bioengineered Tissue No No -Bleeding Controlled with Pressure Pressure -Treatment Response Procedure Procedure Tolerated Well Tolerated Well -Offloading No -Debridement - Subq, 1st 20sq cm Yes Yes Pain Scale: 0-10 Numeric Is Patient Pain Free? Yes Yes - Nurse 3 - General Ulcer D/C NN Start: 09/15/24 10:46 Freq: Status: Active Protocol: Activity Type Activity Date Activity User E-sign Co-sign Detail Recorded Client Recorded Date Recorded By Document 09/15/24 11:36 [id number] 09/15/24 11:36 Document 09/22/24 11:21 [id number] 09/22/24 11:22 09/15/24 09/22/24 11:36 11:21 Wound Care Center Nurse 3 #1 LT MED HEEL -Ulcer Cleansing Not Cleansed -Foul Odor after Cleansing No -Other Dressing paint betadine -Primary Dressing Covered/Secured with Dry Gauze & Dry Gauze & Roll Gauze, Roll Gauze, Secured with Secured with Tape Tape -Other Covering betadine paint Pain Scale: 0-10 Numeric Is Patient Pain Free? Yes Yes - Visit Discharge Discharge Condition Stable Stable Ambulatory Status Ambulatory Walker Transportation Private Auto Private Auto Medication Reconcilliation completed & No provided to patient/care provider Clinical Summary of Care Provided Yes Assessment/Plan Assessment/Plan (1) Non-pressure chronic ulcer of left heel and midfoot with fat layer exposed: CODE(S): L97.422 - Non-pressure chronic ulcer of left heel and midfoot with fat layer exposed PLAN: Patient was examined and evaluated. All findings were discussed with the patient. All questions were answered to the patient's satisfaction. Excisional debridement down to and including subcutaneous tissue of the full- thickness wound and the soft tissue mass of the left lower extremity at the level of the heel with a number 5 mm dermal curette without incident. Predebridement measurement was eschar. Postdebridement measurement is 0.8 x 0.9 x 0.1 cm. Left lower extremities were cleaned and patted dry. The area was dressed with Betadine paint dry sterile dressing and compression wrap. We are still waiting for medical clearance to move forward with surgical intervention to left lower extremity. Patient is understanding of all risk and benefits. We will make an attempt to reach out to the primary team to see if they are okay with the patient going under spinal/epidural anesthesia without using monitored anesthesia care or general. Follow-up at the wound care center with Dr. Wright in 1 week. 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
--- NOTE | 2024-09-22 15:31 | NURSING ---
PHOTO 09/22/24 HEEL
[2024-10-06 11:15] VITALS: BP 162/79; PULSE 116; RESP 18; TEMP 36.2; BMI 31.5
--- NOTE | 2024-10-06 13:04 | PCM.WC.PN ---
History of Present Illness Date of Service: 10/06/24 Chief Complaint: Left foot wound History of Wound: Chronic foot wound Progress of Wound: Full-thickness soft tissue mass status post excision of soft tissue mass with advancement flap closure. Subjective Subjective Mrs Bowman is a 69-year-old female who is status post excision of benign skin lesion with vascular closure to left lower extremity. DOS: 10/01/2024. Patient has been partial weightbearing with surgical shoe to left lower extremity with assistance of a walker. She states she has very little pain to the left foot and controlled with [id number] Tylenol. She has left her dressing clean dry and intact. Denies trauma. Denies constitutional symptoms. No other pedal complaints at this time. Objective Data Objective Data Vital Signs: Vital Signs Temp Pulse Resp BP O2 Del Method 97.2 F L 116 H 18 162/79 H Room Air 10/06/24 11:15 10/06/24 11:15 10/06/24 11:15 10/06/24 11:15 09/15/24 10:48 Oxygen Delivery Method Room Air Weight: 75.75 kg Body Mass Index (BMI) 31.5 Physical Exam Narrative Vascular: DP and PT pulses are palpable. CFT is brisk. Skin temperature is warm to warm from proximal ankles to distal digits. Nonpitting edema is appreciated to the left lower extremity. Blanchable erythema appreciated to the left heel. Neurological: Light touch intact. Protective station is present. Dermatological: Advancement flap closure is secure with retention sutures to the left heel. Blanchable erythema. No drainage. Musculoskeletal: No pain on palpation to close incision on the left heel. No pain with calf pressure. Debridement Note Debridement Note Post-Debridement Measurements and Additional Note: Post-Debridement Measurements/Treatment - Nurse 1 - General Ulcer Assessment Start: 09/15/24 10:46 Freq: Status: Active Protocol: ROEL.AYUSH Activity Type Activity Date Activity User E-sign Co-sign Detail Recorded Client Recorded Date Recorded By Document 09/15/24 10:48 KW [id number] 09/15/24 10:54 KW Document 09/22/24 10:14 DL [id number] 09/22/24 10:29 DL Document 10/06/24 11:15 KW [id number] 10/06/24 11:23 KW 09/15/24 09/22/24 10/06/24 10:48 10:14 11:15 WC - Today's Visit Information Type of service Follow-up Visit Follow-up Visit Follow-up Visit (Physician/RECEPTIONIST/TELEPHONE OPERATOR (Physician/RECEPTIONIST/TELEPHONE OPERATOR (Physician/RECEPTIONIST/TELEPHONE OPERATOR ) ) ) Arrival Mode Ambulatory, Ambulatory, Ambulatory, Walker Wheelchair Walker Transfer Assistance None None Patient Identification Verified (Name & Yes Yes Yes ) Patient Requires Transmission-Based No No Precautions Height and Weight Body Mass Index (BMI) 31.5 31.5 31.5 BMI Classification Obese Obese Obese Vital Signs Temperature (97.8 F-99.1 F) 97.3 F L 97.3 F L 97.2 F L Temperature Source Temporal Temporal Temporal Pulse Rate (60-100) 114 H 107 H 116 H Pulse Location Monitor Monitor Monitor Respiratory Rate (12-18) 16 20 H 18 Respiratory rate source Observation Observation Observation Oxygen Delivery Method Room Air Blood Pressure (90/60-120/80) 145/63 H 140/66 H 162/79 H Blood Pressure Mean (mm Hg) 90 90 106 Source Monitor Monitor Monitor Position Sitting Semi-Fowlers Blood Pressure Location Left Arm Left Arm History Since Last Visit- (Skip if this is Patient's initial visit) Have you changed medications since your No No No last visit? Any new allergies or adverse reactions No No No Had a fall/change in ADL's that may No No No increase risk of falls Signs or symptoms of abuse and/or No No No neglect since last visit Have you been in the hospital since your No No No last visit? Has dressing in place as prescribed Yes Yes Yes Has compression in place as prescribed N/A N/A Has offloadiing in place as prescribed N/A Yes Experienced any changes in pain level or No management Left Footwear Regular Shoe Slipper Right Footwear Regular Shoe Slipper Pain Scale: 0-10 Numeric Is Patient Pain Free? Yes Yes No L heel -Description Aching -Intensity 10 -Duration (hours) Acute -Pain Behavior Guarding, Irritability -Pain Aggravating Factors Exercise/ Activity, Walking, Debridement -Alleviating Factors/Interventions Medication -Effectiveness of Alleviating Factor/ Minimally Intervention effective WC - Nurse 1 - General Ulcer Measurement Start: 09/15/24 10:46 Freq: Status: Active Protocol: Activity Type Activity Date Activity User E-sign Co-sign Detail Recorded Client Recorded Date Recorded By Document 09/15/24 10:48 KW [id number] 09/15/24 10:54 KW Document 09/22/24 10:14 DL [id number] 09/22/24 10:29 DL Document 10/06/24 11:15 KW [id number] 10/06/24 11:23 KW 09/15/24 09/22/24 10/06/24 10:48 10:14 11:15 Wound Center Nurse 1 #1 LT MED HEEL -Combined with other wound No -Current Size (cm) - Length 2 3.2 0.1 -Current Size (cm) - Width 3.4 1.5 0.1 -Current Size (cm) - Depth 0 0.1 0.1 -Total Square Cm 6.8 4.80 0.01 -Photo Taken Yes Yes -Tunneling No -Undermining/Tunneling No -Circular Undermining No -Exudate Amt Small None Present Medium -Exudate Type Serosanguineous Serosanguineous -Wound Margin Indistinct, Non Thickened Distinct, -Visible Outline Attached -Granulation Amt Small (1-33%) None Present (0 Medium (34-66%) %) -Granulation Quality Hyper- Buhl granulation, Buhl -Slough/Fibrin Yes -Necrosis Amt Large (67-100%) None Present (0 Medium (34-66%) %) -Necrotic Tissue Type Adherent Slough Adherent Slough -Structure Exposed N/A N/A -Texture ([place]-wound Skin Appearance) Assessed,Callus Scarring Assessed -Moisture ([place]-wound Skin Appearance) Assessed No Abnormality Assessed -Color ([place]-wound Skin Appearance) Assessed No Abnormality Assessed -Temperature ([place]-wound Skin No Abnormality No Abnormality No Abnormality Appearance) (Pt Warm) (Pt Warm) (Pt Warm) -Tenderness on Palpation ([place]-wound No No No Skin Appearance) -Ulcer Cleansing Soap and Water Soap and Water Wound Cleanser -Foul Odor after Cleansing No No -Anesthetic Used 4% Lidocaine Solution -Wound Comment(s) post op incision well approximated and 5 sutures intact WC - Nurse 2 - General Ulcer CM Notes Start: 09/15/24 10:46 Freq: Status: Active Protocol: Activity Type Activity Date Activity User E-sign Co-sign Detail Recorded Client Recorded Date Recorded By Document 09/15/24 11:15 [id number] 09/15/24 11:20 Document 09/22/24 11:01 BM [id number] 09/22/24 11:07 [facility] Document 10/06/24 11:42 JF [id number] 10/06/24 11:44 JF 09/15/24 09/22/24 10/06/24 11:15 11:01 11:42 Wound Center Nurse 2 #1 LT MED HEEL -Time 11:16 11:01 -Correct Patient Yes Yes Yes -Correct Side, Site, Position Yes Yes No -Correct Procedure Yes Yes No -Procedure Performed Yes Yes No -Type of Procedure Debridement Debridement -Clinical Debridement Subcutaneous Subcutaneous -Tissue Removed Subcutaneous Subcutaneous -Post Debridement (cm) - Length 3.2 0.8 0.1 -Post Debridement (cm) - Width 1.5 0.9 0.1 -Post Debridement (cm) - Depth 0.1 0.1 0.1 -Total Square (Post) (cm) 4.80 0.72 0.01 -Area of Debridement (cm) - Length 3.2 0.8 0.1 -Area of Debridement (cm) - Width 1.5 0.9 0.1 -Total Square (Area) (cm) 4.80 0.72 0.01 -Tunneling No No -Undermining/Tunneling No No -Circular Undermining No No -Wound/Ulcer Outcome Not Healed Not Healed Healed- Surgical Closure -Ulcer Cleansing Rinsed/ Rinsed/ Irrigated with Irrigated with Saline Saline -Foul Odor after Cleansing No No -Bioengineered Tissue No No -Bleeding Controlled with Pressure Pressure -Treatment Response Procedure Procedure Tolerated Well Tolerated Well -Offloading No -Debridement - Subq, 1st 20sq cm Yes Yes Pain Scale: 0-10 Numeric Is Patient Pain Free? Yes Yes Yes - Nurse 3 - General Ulcer D/C NN Start: 09/15/24 10:46 Freq: Status: Active Protocol: Activity Type Activity Date Activity User E-sign Co-sign Detail Recorded Client Recorded Date Recorded By Document 09/15/24 11:36 KW [id number] 09/15/24 11:36 KW Document 09/22/24 11:21 [id number] 09/22/24 11:22 Document 10/06/24 11:55 KW [id number] 10/06/24 11:56 KW 09/15/24 09/22/24 10/06/24 11:36 11:21 11:55 Wound Care Center Nurse 3 #1 LT MED HEEL -Ulcer Cleansing Not Cleansed -Foul Odor after Cleansing No -Other Dressing paint betadine -Primary Dressing Covered/Secured with Dry Gauze & Dry Gauze & Roll Gauze, Roll Gauze, Secured with Secured with Tape Tape -Other Covering betadine paint Pain Scale: 0-10 Numeric Is Patient Pain Free? Yes Yes Yes WC - Visit Discharge Discharge Condition Stable Stable Stable Ambulatory Status Ambulatory Walker Ambulatory, Walker Transportation Private Auto Private Auto Private Auto Medication Reconcilliation completed & No No provided to patient/care provider Clinical Summary of Care Provided Yes Yes #1 LT MED HEEL -Primary Dressing Applied NonAdherent Contact Layer -Other Dressing betadine Left -Compression Wrap Brad Wrap Assessment/Plan Assessment/Plan (1) Non-pressure chronic ulcer of left heel and midfoot with fat layer exposed: CODE(S): L97.422 - Non-pressure chronic ulcer of left heel and midfoot with fat layer exposed PLAN: Patient was examined and evaluated. All findings were discussed with the patient. All questions were answered to the patient's satisfaction. Patient is status post excision of benign skin lesion with advancement flap closure to left heel. DOS: 10/01/2024. Patient is doing well after surgery. Patient continue to take Tylenol as needed. The incision was dressed with Betadine soaked Adaptic dry sterile dressing and single-layer Roe compression bandage was donned to the left lower extremity. Patient can be toe-touch weightbearing with assistance of a walker. The patient's pathology results show evidence of a aggressive verruca plantaris. I educated the patient that if any of the warts reappear we will treat them in the office with Jose. The patient was very grateful for her care and will follow-up at the wound care center in 1 week. Follow-up at the wound care center with Dr. Wright in 1 week. 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
--- NOTE | 2024-10-07 09:34 | WC ---
PHOTO 10/06/24 LEFT MEDIAL HEEL
== END 2024-10-08 23:59 | disposition home or self-care (01) ==
LOC: WC 11:00
PROVIDERS: PCP Internal Medicine; Referring Provider Psychiatry & Neurology Neurology; Visit Provider Podiatrist Foot & Ankle Surgery
DX: L97.422 Non-pressure chronic ulcer of left heel and midfoot with fat layer exposed (principal); D23.72 Other benign neoplasm of skin of left lower limb, including hip
CPT/HCPCS: 11042; 99214; G0463

== ENCOUNTER 2024-11-03 11:00 | Outpatient (RCR) | payer OTHER, SELFPAY ==
[2024-10-09 01:23] VITALS: BP 162/79; PULSE 116; RESP 18; TEMP 36.2; BMI 31.5
[2024-10-12 08:20] VITALS: BP 157/74; PULSE 116; RESP 15; BMI 31.5
[2024-10-20 11:01] VITALS: BP 146/74; PULSE 114; RESP 18; TEMP 36.1; BMI 31.5
--- NOTE | 2024-10-20 13:12 | PCM.WC.PN ---
History of Present Illness Date of Service: 10/06/24 Chief Complaint: Left foot wound History of Wound: Chronic foot wound Progress of Wound: Full-thickness soft tissue mass status post excision of soft tissue mass with advancement flap closure. Subjective Subjective Mrs Bowman is a 69-year-old female who is status post excision of benign skin lesion with vascular closure to left lower extremity. DOS: 10/01/2024. Patient has been partial weightbearing with surgical shoe to left lower extremity with assistance of a walker. Patient has pain is improved. She is here today for suture removal but not looking forward to it. Otherwise she is doing well. Grateful for care. Denies trauma. Denies constitutional symptoms. No other pedal complaints at this time Objective Data Objective Data Vital Signs: Vital Signs Temp Pulse Resp BP O2 Del Method 97 F L 114 H 18 146/74 H Room Air 10/20/24 11:01 10/20/24 11:01 10/20/24 11:01 10/20/24 11:01 10/20/24 11:01 Oxygen Delivery Method Room Air Weight: 75.75 kg Body Mass Index (BMI) 31.5 Physical Exam Narrative Vascular: DP and PT pulses are palpable. CFT is brisk. Skin temperature is warm to warm from proximal ankles to distal digits. Nonpitting edema is appreciated to the left lower extremity. Blanchable erythema appreciated to the left heel. Neurological: Light touch intact. Protective station is present. Dermatological: Surgery removed and showed evidence of a small full-thickness wound to the incision area measuring 0.5 x 3.0 x 0.9 cm. Wound base is granular with no sign of infection. Excisional debridement down to including subcutaneous tissue with a number 3 mm dermal curette to the advancement flap closure incision to the left heel status post removal of a large plantar verruca without incident. Predebridement measurement was 0.3 x 2.8 x 0.5 cm. Postdebridement measurement is 0.5 x 3.0 x 0.9 cm. Musculoskeletal: No pain on palpation to close incision on the left heel. No pain with calf pressure. Debridement Note Debridement Note Debridement Free Text: Excisional debridement down to including subcutaneous tissue with a number 3 mm dermal curette to the advancement flap closure incision to the left heel status post removal of a large plantar verruca without incident. Predebridement measurement was 0.3 x 2.8 x 0.5 cm. Postdebridement measurement is 0.5 x 3.0 x 0.9 cm. Post-Debridement Measurements and Additional Note: Post-Debridement Measurements/Treatment - Nurse 1 - General Ulcer Assessment Start: 10/12/24 08:20 Freq: Status: Active Protocol: ROEL.LOWARNELT Activity Type Activity Date Activity User E-sign Co-sign Detail Recorded Client Recorded Date Recorded By Document 10/12/24 08:20 ML [id number] 10/12/24 08:37 ML Document 10/20/24 11:01 MT [id number] 10/20/24 11:18 MT 10/12/24 10/20/24 08:20 11:01 - Today's Visit Information Type of service Nurse-only Follow-up Visit Visit (Physician/[employer] ) Arrival Mode Ambulatory, Ambulatory, Walker Walker Transfer Assistance None Accompanied by Patient Identification Verified (Name & Yes Yes ) Patient Requires Transmission-Based No Precautions Height and Weight Body Mass Index (BMI) 31.5 31.5 BMI Classification Obese Obese Vital Signs Temperature (97.8 F-99.1 F) 97 F L Temperature Source Temporal Pulse Rate (60-100) 116 H 114 H Pulse Location Monitor Monitor Respiratory Rate (12-18) 15 18 Respiratory rate source Observation Observation Oxygen Delivery Method Room Air Blood Pressure (90/60-120/80) 157/74 H 146/74 H Blood Pressure Mean (mm Hg) 101 98 Source Monitor Monitor Position Sitting Blood Pressure Location Right Arm History Since Last Visit- (Skip if this is Patient's initial visit) Have you changed medications since your No last visit? Any new allergies or adverse reactions No Had a fall/change in ADL's that may No increase risk of falls Signs or symptoms of abuse and/or No neglect since last visit Have you been in the hospital since your No last visit? Has dressing in place as prescribed Yes Yes Has compression in place as prescribed N/A Yes Has offloadiing in place as prescribed N/A Yes Experienced any changes in pain level or No Yes management Left Footwear Surgical Shoe Regular Shoe with pressure relief insole Right Footwear Surgical Shoe Regular Shoe with pressure relief insole Pain Scale: 0-10 Numeric Is Patient Pain Free? No Yes [facility] Nurse 1 - General Ulcer Measurement Start: 10/12/24 08:20 Freq: Status: Active Protocol: Activity Type Activity Date Activity User E-sign Co-sign Detail Recorded Client Recorded Date Recorded By Document 10/20/24 11:01 GA [id number] 10/20/24 11:18 GA 10/20/24 11:01 Wound Center Nurse 1 #1 LT MED HEEL -Current Size (cm) - Length 0.1 -Current Size (cm) - Width 0.1 -Current Size (cm) - Depth 0 -Total Square Cm 0.01 -Date of Last Picture (Recall this 10/20/24 field) -Exudate Amt Small -Exudate Type Serosanguineous -Texture ([place]-wound Skin Appearance) Assessed,Callus -Moisture ([place]-wound Skin Appearance) Assessed -Color ([place]-wound Skin Appearance) Assessed -Temperature ([place]-wound Skin No Abnormality Appearance) (Pt Warm) -Tenderness on Palpation ([place]-wound Yes Skin Appearance) -Ulcer Cleansing Soap and Water -Foul Odor after Cleansing No -Wound Comment(s) intact sutures WC - Nurse 2 - General Ulcer CM Notes Start: 10/12/24 08:20 Freq: Status: Active Protocol: Activity Type Activity Date Activity User E-sign Co-sign Detail Recorded Client Recorded Date Recorded By Document 10/20/24 11:36 [id number] 10/20/24 11:38 10/20/24 11:36 Wound Center Nurse 2 -Time 11:36 -Correct Patient Yes -Correct Side, Site, Position Yes -Correct Procedure Yes -Procedure Performed Yes -Type of Procedure Debridement -Clinical Debridement Subcutaneous -Tissue Removed Subcutaneous -Post Debridement (cm) - Length 0.5 -Post Debridement (cm) - Width 3.0 -Post Debridement (cm) - Depth 0.9 -Total Square (Post) (cm) 1.50 -Area of Debridement (cm) - Length 0.5 -Area of Debridement (cm) - Width 3.0 -Total Square (Area) (cm) 1.50 -Tunneling No -Undermining/Tunneling No -Circular Undermining No -Wound/Ulcer Outcome Not Healed -Ulcer Cleansing Rinsed/ Irrigated with Saline -Foul Odor after Cleansing No -Bleeding Controlled with Pressure -Treatment Response Procedure Tolerated Well -Offloading No -Debridement - Subq, 1st 20sq cm Yes Pain Scale: 0-10 Numeric Is Patient Pain Free? Yes WC - Nurse 3 - General Ulcer D/C NN Start: 10/12/24 08:20 Freq: Status: Active Protocol: Activity Type Activity Date Activity User E-sign Co-sign Detail Recorded Client Recorded Date Recorded By Document 10/12/24 08:20 ML [id number] 10/12/24 08:37 ML Document 10/20/24 11:55 DL [id number] 10/20/24 11:57 DL 10/12/24 10/20/24 08:20 11:55 Pain Scale: 0-10 Numeric Is Patient Pain Free? No Yes Wound Care Center Nurse 3 #1 LT MED HEEL -Ulcer Cleansing Soap and Water -Foul Odor after Cleansing No No -Other Dressing betadine, betadine adaptic, undercasting -Primary Dressing Covered/Secured with Dry Gauze, Dry Gauze & Secured with Roll Gauze, Tape Secured with Tape -Other Covering Brad -Wound Comment(s) Betadine and steri strips applied per Dr. Wright. Treatment Response Procedure Tolerated Well WC - Visit Discharge Discharge Condition Stable Ambulatory Status Ambulatory, Walker Transportation Private Auto Accompanied by Facility Type Home Health Orders Sent Yes Assessment/Plan Assessment/Plan (1) Non-pressure chronic ulcer of left heel and midfoot with fat layer exposed: CODE(S): L97.422 - Non-pressure chronic ulcer of left heel and midfoot with fat layer exposed PLAN: Patient was examined and evaluated. All findings were discussed with the patient. All questions were answered to the patient's satisfaction. Once sutures were removed there showed evidence of a full-thickness wound that will now be treated with weekly debridements here at the wound care center. Excisional debridement down to including subcutaneous tissue with a number 3 mm dermal curette to the advancement flap closure incision to the left heel status post removal of a large plantar verruca without incident. Predebridement measurement was 0.3 x 2.8 x 0.5 cm. Postdebridement measurement is 0.5 x 3.0 x 0.9 cm. The full-thickness wound was flushed with copious also normal saline. Half-inch Steri-Strips were used to reeducate the flap closure incision line. Betadine paint was applied to the Steri-Strips followed by Betadine soaked gauze dry sterile dressing light compression wrap. Patient can be weightbearing as tolerated in surgical shoe with preferred toe-touch with assistance of a walker. She can take [id number] Tylenol as needed for pain control. Follow-up at the wound care center with Dr. Wright in 1 week.
--- NOTE | 2024-10-21 10:07 | WC ---
PHOTO 10/20/24 LEFT [facility]
[2024-10-27 11:16] VITALS: BP 146/73; PULSE 111; RESP 16; BMI 31.5
--- NOTE | 2024-10-27 12:38 | PCM.WC.PN ---
History of Present Illness Date of Service: 10/27/24 Chief Complaint: Left foot wound History of Wound: Chronic foot wound Progress of Wound: Full-thickness soft tissue mass status post excision of soft tissue mass with advancement flap closure. Subjective Subjective Mrs. Bowman is a 69-year-old female presenting with concern today for follow-up evaluation of full-thickness wound status post verruca plantaris removal to the left medial yeboah. Patient has been doing dressing changes with Betadine soaked gauze dry sterile dressing compression wrap. She mitts to some pain to the left heel with weightbearing, and rates her pain 4?5 out of 10 on the pain scale. She denies any falls or trauma. Denies constitutional symptoms. The pain complaints at this time. Objective Data Objective Data Vital Signs: Vital Signs Temp Pulse Resp BP O2 Del Method 97 F L 111 H 16 146/73 H Room Air 10/20/24 11:01 10/27/24 11:16 10/27/24 11:16 10/27/24 11:16 10/27/24 11:16 Oxygen Delivery Method Room Air Weight: 75.75 kg Body Mass Index (BMI) 31.5 Physical Exam Narrative Vascular: DP and PT pulses are palpable. CFT is brisk. Skin temperature is warm to warm from proximal ankles to distal digits. Nonpitting edema is appreciated to the left lower extremity. Blanchable erythema appreciated to the left heel. Neurological: Light touch intact. Protective station is present. Dermatological: Full-thickness wound to the lateral left heel after suture removal measuring 0.6 x 2.4 x 0.4 cm. Evidence of hyperkeratotic periwound. There is concern left heel infection secondary to some malodor and fibrogranular tissue. Excisional debridement down to including subcutaneous tissue with a number 3 mm dermal curette to the advancement flap closure incision to the left heel status post removal of a large plantar verruca without incident. Predebridement measurement was 0.4 x 2.1 x 0.2 cm. Postdebridement measurement is 0.6 x 2.4 x 0.4 cm Musculoskeletal: No pain on palpation to close incision on the left heel. No pain with calf pressure. Debridement Note Debridement Note Debridement Free Text: Excisional debridement down to including subcutaneous tissue with a number 3 mm dermal curette to the advancement flap closure incision to the left heel status post removal of a large plantar verruca without incident. Predebridement measurement was 0.4 x 2.1 x 0.2 cm. Postdebridement measurement is 0.6 x 2.4 x 0.4 cm Post-Debridement Measurements and Additional Note: Post-Debridement Measurements/Treatment WC - Nurse 1 - General Ulcer Assessment Start: 10/12/24 08:20 Freq: Status: Active Protocol: ROEL.LOWEXT Activity Type Activity Date Activity User E-sign Co-sign Detail Recorded Client Recorded Date Recorded By Document 10/12/24 08:20 ML [id number] 10/12/24 08:37 ML Document 10/20/24 11:01 MT [id number] 10/20/24 11:18 MT Document 10/27/24 11:16 GM [id number] 10/27/24 11:30 GM 10/12/24 10/20/24 10/27/24 08:20 11:01 11:16 WC - Today's Visit Information Type of service Nurse-only Follow-up Visit Follow-up Visit Visit (Physician/[facility] (Physician/[facility] ) ) Arrival Mode Ambulatory, Ambulatory, Ambulatory, Walker Walker Walker Transfer Assistance None None Accompanied by Patient Identification Verified (Name & Yes Yes Yes ) Patient Requires Transmission-Based No Precautions Height and Weight Body Mass Index (BMI) 31.5 31.5 31.5 BMI Classification Obese Obese Obese Vital Signs Temperature (97.8 F-99.1 F) 97 F L Temperature Source Temporal Pulse Rate (60-100) 116 H 114 H 111 H Pulse Location Monitor Monitor Monitor Respiratory Rate (12-18) 15 18 16 Respiratory rate source Observation Observation Observation Oxygen Delivery Method Room Air Room Air Blood Pressure (90/60-120/80) 157/74 H 146/74 H 146/73 H Blood Pressure Mean (mm Hg) 101 98 97 Source Monitor Monitor Monitor Position Sitting Sitting Blood Pressure Location Right Arm Left Arm History Since Last Visit- (Skip if this is Patient's initial visit) Have you changed medications since your No No last visit? Any new allergies or adverse reactions No No Had a fall/change in ADL's that may No No increase risk of falls Signs or symptoms of abuse and/or No No neglect since last visit Have you been in the hospital since your No No last visit? Has dressing in place as prescribed Yes Yes Yes Has compression in place as prescribed N/A Yes Yes Has offloadiing in place as prescribed N/A Yes Yes Experienced any changes in pain level or No Yes No management Left Footwear Surgical Shoe Regular Shoe Surgical Shoe with pressure with pressure relief insole relief insole Right Footwear Surgical Shoe Regular Shoe with pressure relief insole Pain Scale: 0-10 Numeric Is Patient Pain Free? No Yes Yes ROEL - Nurse 1 - General Ulcer Measurement Start: 10/12/24 08:20 Freq: Status: Active Protocol: Activity Type Activity Date Activity User E-sign Co-sign Detail Recorded Client Recorded Date Recorded By Document 10/20/24 11:01 MT [id number] 10/20/24 11:18 MT Document 10/27/24 11:16 [id number] 10/27/24 11:30 10/20/24 10/27/24 11:01 11:16 Wound Center Nurse 1 #1 LT MED HEEL -Combined with other wound No -Current Size (cm) - Length 0.1 0.7 -Current Size (cm) - Width 0.1 3.5 -Current Size (cm) - Depth 0 0.4 -Total Square Cm 0.01 2.45 -Date of Last Picture (Recall this 10/20/24 10/27/24 field) -Photo Taken Yes -Epithelialization None Present -Tunneling No -Undermining/Tunneling No -Circular Undermining No -Exudate Amt Small Medium -Exudate Type Serosanguineous Serosanguineous -Wound Margin Distinct, Outline Attached -Granulation Amt Medium (34-66%) -Granulation Quality Teresita -Slough/Fibrin No -Necrosis Amt Small (1-33%) -Necrotic Tissue Type Adherent Slough -Texture ([place]-wound Skin Appearance) Assessed,Callus Assessed,Callus -Moisture ([place]-wound Skin Appearance) Assessed Assessed, Maceration -Color ([place]-wound Skin Appearance) Assessed Assessed -Temperature ([place]-wound Skin No Abnormality No Abnormality Appearance) (Pt Warm) (Pt Warm) -Tenderness on Palpation ([place]-wound Yes Yes Skin Appearance) -Ulcer Cleansing Soap and Water Soap and Water -Foul Odor after Cleansing No No -Anesthetic Used 5% Lidocaine Gel -Wound Comment(s) intact sutures WC - Nurse 2 - General Ulcer CM Notes Start: 10/12/24 08:20 Freq: Status: Active Protocol: Activity Type Activity Date Activity User E-sign Co-sign Detail Recorded Client Recorded Date Recorded By Document 10/20/24 11:36 JF [id number] 10/20/24 11:38 JF Document 10/27/24 11:40 JF [id number] 10/27/24 11:42 JF 10/20/24 10/27/24 11:36 11:40 Wound Center Nurse 2 #1 LT MED HEEL -Time 11:36 11:40 -Correct Patient Yes Yes -Correct Side, Site, Position Yes Yes -Correct Procedure Yes Yes -Procedure Performed Yes Yes -Type of Procedure Debridement Debridement -Clinical Debridement Subcutaneous Subcutaneous -Tissue Removed Subcutaneous Subcutaneous -Post Debridement (cm) - Length 0.5 0.6 -Post Debridement (cm) - Width 3.0 2.4 -Post Debridement (cm) - Depth 0.9 0.4 -Total Square (Post) (cm) 1.50 1.44 -Area of Debridement (cm) - Length 0.5 0.6 -Area of Debridement (cm) - Width 3.0 2.4 -Total Square (Area) (cm) 1.50 1.44 -Tunneling No No -Undermining/Tunneling No No -Circular Undermining No No -Wound/Ulcer Outcome Not Healed Not Healed -Ulcer Cleansing Rinsed/ Rinsed/ Irrigated with Irrigated with Saline Saline -Foul Odor after Cleansing No No -Bioengineered Tissue No -Bleeding Controlled with Pressure Pressure -Treatment Response Procedure Procedure Tolerated Well Tolerated Well -Offloading No No -Assistive Device(s) Walker -Debridement - Subq, 1st 20sq cm Yes Yes Pain Scale: 0-10 Numeric Is Patient Pain Free? Yes Yes - Nurse 3 - General Ulcer D/C NN Start: 10/12/24 08:20 Freq: Status: Active Protocol: Activity Type Activity Date Activity User E-sign Co-sign Detail Recorded Client Recorded Date Recorded By Document 10/12/24 08:20 ML [id number] 10/12/24 08:37 ML Document 10/20/24 11:55 DL [id number] 10/20/24 11:57 DL Document 10/27/24 11:57 DL [id number] 10/27/24 11:59 DL 10/12/24 10/20/24 10/27/24 08:20 11:55 11:57 Pain Scale: 0-10 Numeric Is Patient Pain Free? No Yes Yes Wound Care Center Nurse 3 #1 LT MED HEEL -Ulcer Cleansing Soap and Water Soap and Water -Foul Odor after Cleansing No No No -Primary Dressing Applied Silvercel -Other Dressing betadine, betadine adaptic, undercasting -Primary Dressing Covered/Secured with Dry Gauze, Dry Gauze & Dry Gauze & Secured with Roll Gauze, Roll Gauze, Tape Secured with Secured with Tape Tape -Other Covering Brad Silvercell used today -Silvercel 1 -Wound Comment(s) Betadine and Dressing steri strips applied today applied per Dr. milagro Wright. LLE -Compression Wrap Brad Wrap Treatment Response Procedure Procedure Tolerated Well Tolerated Well WC - Visit Discharge Discharge Condition Stable Stable Ambulatory Status Ambulatory, Walker Walker Transportation Private Auto Private Auto Accompanied by Facility Type Home Health Orders Sent Yes Assessment/Plan Assessment/Plan (1) Non-pressure chronic ulcer of left heel and midfoot with fat layer exposed: CODE(S): L97.422 - Non-pressure chronic ulcer of left heel and midfoot with fat layer exposed PLAN: Patient was examined and evaluated. All findings were discussed with the patient. All questions were answered to the patient's satisfaction. Excisional debridement down to including subcutaneous tissue with a number 3 mm dermal curette to the advancement flap closure incision to the left heel status post removal of a large plantar verruca without incident. Predebridement measurement was 0.4 x 2.1 x 0.2 cm. Postdebridement measurement is 0.6 x 2.4 x 0.4 cm. The hyperkeratotic periwound was also removed with a sterile pickup and #15 blade without incident. The full-thickness wound was flushed with copious also normal saline. Culture of the full-thickness wound was taken and sent to microbiology for culture and sensitivity. Antibiotics will prescribe as needed. The full-thickness wound was dressed with silver alginate, dry sterile dressing and compression wrap. Patient will do every other day dressing changes. Patient can be weightbearing as tolerated in surgical shoe with preferred toe-touch with assistance of a walker. She can take [id number] Tylenol as needed for pain control. Follow-up at the wound care center with Dr. Wright in 1 week.
--- NOTE | 2024-10-28 08:32 | WC ---
PHOTO 10/27/24 LEFT HEEL
[2024-11-03 11:16] VITALS: BP 134/72; PULSE 94; RESP 18; TEMP 36.4; BMI 31.5
--- NOTE | 2024-11-03 14:15 | PN.PCM_ITS ---
History of Present Illness Date of Service: 11/03/24 Chief Complaint: Left foot wound History of Wound: Chronic foot wound Progress of Wound: Full-thickness soft tissue mass status post excision of soft tissue mass with advancement flap closure. Subjective Subjective Mrs Bowman is a six 9-year-old female presented wound care center today for follow-up evaluation of full-thickness wound status post excision of benign skin lesion with advancement flap closure to the left heel. She has been compliant with dressing changes that have been done by her daughter. She admits to minimal to no pain to the left heel. Grateful for care. Denies trauma. Denies constitutional symptoms. No other pedal complaints at this time. Objective Data Objective Data Vital Signs: Vital Signs Temp Pulse Resp BP O2 Del Method 97.5 F L 94 18 134/72 H Room Air 11/03/24 11:16 11/03/24 11:16 11/03/24 11:16 11/03/24 11:16 11/03/24 11:16 Oxygen Delivery Method Room Air Weight: 75.75 kg Body Mass Index (BMI) 31.5 Lab / Micro Data Micro: Microbiology 10/27/24 11:38 Wound - Heel, Left Gram Stain - Final 10/27/24 11:38 Wound - Heel, Left Wound Culture - Final Morganella morganii sp morgani Staphylococcus epidermidis Meth. resistant Staph. aureus 10/27/24 11:38 Wound - Heel, Left Anaerobic Culture - Final Anaerobic cocci Physical Exam Narrative Vascular: DP and PT pulses are palpable. CFT is brisk. Skin temperature is warm to warm from proximal ankles to distal digits. Nonpitting edema is appreciated to the left lower extremity. Blanchable erythema appreciated to the left heel. Neurological: Light touch intact. Protective station is present. Dermatological: Full-thickness wound to the lateral left heel measuring 0.5 x 1.5 x 0.1 cm. Evidence of hyperkeratotic periwound, improving. Malodor and erythema has improved. Excisional debridement down to and including subcutaneous tissue with a number 3 mm dermal curette to the full-thickness wound to the left medial heel done without incident. Predebridement measurement was 0.3 x 1.0 x 0.1 cm. Postdebridement measurement is 0.5 x 1.5 x 0.1 cm. Musculoskeletal: No pain on palpation to close incision on the left heel. No pain with calf pressure. Debridement Note Debridement Note Debridement Free Text: Excisional debridement down to and including subcutaneous tissue with a number 3 mm dermal curette to the full-thickness wound to the left medial heel done without incident. Predebridement measurement was 0.3 x 1.0 x 0.1 cm. Postdebridement measurement is 0.5 x 1.5 x 0.1 cm. Post-Debridement Measurements and Additional Note: Post-Debridement Measurements/Treatment - Nurse 1 - General Ulcer Assessment Start: 10/12/24 08:20 Freq: Status: Active Protocol: ROEL.LOWEXT Activity Type Activity Date Activity User E-sign Co-sign Detail Recorded Client Recorded Date Recorded By Document 10/12/24 08:20 ML [id number] 10/12/24 08:37 ML Document 10/20/24 11:01 MT [id number] 10/20/24 11:18 MT Document 10/27/24 11:16 GM [id number] 10/27/24 11:30 GM Document 11/03/24 11:16 KW [id number] 11/03/24 11:30 KW 10/12/24 10/20/24 10/27/24 08:20 11:01 11:16 - Today's Visit Information Type of service Nurse-only Follow-up Visit Follow-up Visit Visit (Physician/DIRECTOR OF INSTITUTIONAL GIVING (Physician/DIRECTOR OF INSTITUTIONAL GIVING ) ) Arrival Mode Ambulatory, Ambulatory, Ambulatory, Walker Walker Walker Transfer Assistance None None Accompanied by Patient Identification Verified (Name & Yes Yes Yes ) Patient Requires Transmission-Based No Precautions Height and Weight Body Mass Index (BMI) 31.5 31.5 31.5 BMI Classification Obese Obese Obese Vital Signs Temperature (97.8 F-99.1 F) 97 F L Temperature Source Temporal Pulse Rate (60-100) 116 H 114 H 111 H Pulse Location Monitor Monitor Monitor Respiratory Rate (12-18) 15 18 16 Respiratory rate source Observation Observation Observation Oxygen Delivery Method Room Air Room Air Blood Pressure (90/60-120/80) 157/74 H 146/74 H 146/73 H Blood Pressure Mean (mm Hg) 101 98 97 Source Monitor Monitor Monitor Position Sitting Sitting Blood Pressure Location Right Arm Left Arm History Since Last Visit- (Skip if this is Patient's initial visit) Have you changed medications since your No No last visit? Any new allergies or adverse reactions No No Had a fall/change in ADL's that may No No increase risk of falls Signs or symptoms of abuse and/or No No neglect since last visit Have you been in the hospital since your No No last visit? Has dressing in place as prescribed Yes Yes Yes Has compression in place as prescribed N/A Yes Yes Has offloadiing in place as prescribed N/A Yes Yes Experienced any changes in pain level or No Yes No management Left Footwear Surgical Shoe Regular Shoe Surgical Shoe with pressure with pressure relief insole relief insole Right Footwear Surgical Shoe Regular Shoe with pressure relief insole Pain Scale: 0-10 Numeric Is Patient Pain Free? No Yes Yes 11/03/24 11:16 WC - Today's Visit Information Type of service Follow-up Visit (Physician/DIRECTOR OF INSTITUTIONAL GIVING ) Arrival Mode Ambulatory, Walker Transfer Assistance Accompanied by Patient Identification Verified (Name & Yes ) Patient Requires Transmission-Based Precautions Height and Weight Body Mass Index (BMI) 31.5 BMI Classification Obese Vital Signs Temperature (97.8 F-99.1 F) 97.5 F L Temperature Source Temporal Pulse Rate (60-100) 94 Pulse Location Monitor Respiratory Rate (12-18) 18 Respiratory rate source Observation Oxygen Delivery Method Room Air Blood Pressure (90/60-120/80) 134/72 H Blood Pressure Mean (mm Hg) 92 Source Monitor Position Semi-Fowlers Blood Pressure Location Left Arm History Since Last Visit- (Skip if this is Patient's initial visit) Have you changed medications since your No last visit? Any new allergies or adverse reactions No Had a fall/change in ADL's that may No increase risk of falls Signs or symptoms of abuse and/or No neglect since last visit Have you been in the hospital since your No last visit? Has dressing in place as prescribed Yes Has compression in place as prescribed Yes Has offloadiing in place as prescribed Yes Experienced any changes in pain level or No management Left Footwear Surgical Shoe with pressure relief insole Right Footwear Regular Shoe Pain Scale: 0-10 Numeric Is Patient Pain Free? Yes - Nurse 1 - General Ulcer Measurement Start: 10/12/24 08:20 Freq: Status: Active Protocol: Activity Type Activity Date Activity User E-sign Co-sign Detail Recorded Client Recorded Date Recorded By Document 10/20/24 11:01 MT [id number] 10/20/24 11:18 MT Document 10/27/24 11:16 GM [id number] 10/27/24 11:30 GM Document 11/03/24 11:16 KW [id number] 11/03/24 11:30 KW 10/20/24 10/27/24 11/03/24 11:01 11:16 11:16 Wound Center Nurse 1 #1 LT MED HEEL -Combined with other wound No -Current Size (cm) - Length 0.1 0.7 -Current Size (cm) - Width 0.1 3.5 -Current Size (cm) - Depth 0 0.4 -Total Square Cm 0.01 2.45 -Date of Last Picture (Recall this 10/20/24 10/27/24 field) -Photo Taken Yes -Epithelialization None Present Large 67-100% -Tunneling No -Undermining/Tunneling No -Circular Undermining No -Exudate Amt Small Medium Small -Exudate Type Serosanguineous Serosanguineous Serosanguineous -Wound Margin Distinct, Distinct, Outline Outline Attached Attached -Granulation Amt Medium (34-66%) Large (67-100%) -Granulation Quality [place] Red -Slough/Fibrin No -Necrosis Amt Small (1-33%) -Necrotic Tissue Type Adherent Slough -Texture ([place]-wound Skin Appearance) Assessed,Callus Assessed,Callus Assessed -Moisture ([place]-wound Skin Appearance) Assessed Assessed, Assessed Maceration -Color ([place]-wound Skin Appearance) Assessed Assessed Assessed -Temperature ([place]-wound Skin No Abnormality No Abnormality No Abnormality Appearance) (Pt Warm) (Pt Warm) (Pt Warm) -Tenderness on Palpation ([place]-wound Yes Yes No Skin Appearance) -Ulcer Cleansing Soap and Water Soap and Water Soap and Water -Foul Odor after Cleansing No No No -Anesthetic Used 5% Lidocaine 5% Lidocaine Gel Gel -Wound Comment(s) intact sutures WC - Nurse 2 - General Ulcer CM Notes Start: 10/12/24 08:20 Freq: Status: Active Protocol: Activity Type Activity Date Activity User E-sign Co-sign Detail Recorded Client Recorded Date Recorded By Document 10/20/24 11:36 JF [id number] 10/20/24 11:38 Document 10/27/24 11:40 JF [id number] 10/27/24 11:42 Document 11/03/24 11:41 [id number] 11/03/24 11:47 JF 10/20/24 10/27/24 11/03/24 11:36 11:40 11:41 Wound Center Nurse 2 #1 MED HEEL -Time 11:36 11:40 11:43 -Correct Patient Yes Yes Yes -Correct Side, Site, Position Yes Yes Yes -Correct Procedure Yes Yes Yes -Procedure Performed Yes Yes Yes -Type of Procedure Debridement Debridement Debridement -Clinical Debridement Subcutaneous Subcutaneous Subcutaneous -Tissue Removed Subcutaneous Subcutaneous Subcutaneous -Post Debridement (cm) - Length 0.5 0.6 0.5 -Post Debridement (cm) - Width 3.0 2.4 1.5 -Post Debridement (cm) - Depth 0.9 0.4 0.2 -Total Square (Post) (cm) 1.50 1.44 0.75 -Area of Debridement (cm) - Length 0.5 0.6 0.5 -Area of Debridement (cm) - Width 3.0 2.4 1.5 -Total Square (Area) (cm) 1.50 1.44 0.75 -Tunneling No No No -Undermining/Tunneling No No No -Circular Undermining No No No -Wound/Ulcer Outcome Not Healed Not Healed Not Healed -Ulcer Cleansing Rinsed/ Rinsed/ Rinsed/ Irrigated with Irrigated with Irrigated with Saline Saline Saline -Foul Odor after Cleansing No No No -Bioengineered Tissue No No -Bleeding Controlled with Pressure Pressure Pressure -Treatment Response Procedure Procedure Procedure Tolerated Well Tolerated Well Tolerated Well -Offloading No No Yes -Type of Offloading Surgical Shoe -Assistive Device(s) Walker -Debridement - Subq, 1st 20sq cm Yes Yes Yes Pain Scale: 0-10 Numeric Is Patient Pain Free? Yes Yes Yes WC - Nurse 3 - General Ulcer D/C NN Start: 10/12/24 08:20 Freq: Status: Active Protocol: Activity Type Activity Date Activity User E-sign Co-sign Detail Recorded Client Recorded Date Recorded By Document 10/12/24 08:20 ML [id number] 10/12/24 08:37 ML Document 10/20/24 11:55 DL [id number] 10/20/24 11:57 DL Document 10/27/24 11:57 DL [id number] 10/27/24 11:59 DL Document 11/03/24 11:52 JF [id number] 11/03/24 11:53 10/12/24 10/20/24 10/27/24 08:20 11:55 11:57 Pain Scale: 0-10 Numeric Is Patient Pain Free? No Yes Yes Wound Care Center Nurse 3 #1 LT MED HEEL -Ulcer Cleansing Soap and Water Soap and Water -Foul Odor after Cleansing No No No -Primary Dressing Applied Silvercel -Other Dressing betadine, betadine adaptic, undercasting -Primary Dressing Covered/Secured with Dry Gauze, Dry Gauze & Dry Gauze & Secured with Roll Gauze, Roll Gauze, Tape Secured with Secured with Tape Tape -Other Covering Brad Silvercell used today -Silvercel 1 -Wound Comment(s) Betadine and Dressing steri strips applied today applied per Dr. milagro Wright. LLE -Compression Wrap Brad Wrap Treatment Response Procedure Procedure Tolerated Well Tolerated Well WC - Visit Discharge Discharge Condition Stable Stable Ambulatory Status Ambulatory, Walker Walker Transportation Private Auto Private Auto Accompanied by Medication Reconcilliation completed & provided to patient/care provider Clinical Summary of Care Provided Facility Type Home Health Orders Sent Yes 11/03/24 11:52 Pain Scale: 0-10 Numeric Is Patient Pain Free? Yes Wound Care Center Nurse 3 #1 LT MED HEEL -Ulcer Cleansing Rinsed/ Irrigated with Saline -Foul Odor after Cleansing No -Primary Dressing Applied -Other Dressing bacitracin -Primary Dressing Covered/Secured with Dry Gauze & Roll Gauze -Other Covering -Silvercel -Wound Comment(s) LLE -Compression Wrap Brad Wrap Treatment Response WC - Visit Discharge Discharge Condition Stable Ambulatory Status Ambulatory, Walker Transportation Private Auto Accompanied by Medication Reconcilliation completed & Yes provided to patient/care provider Clinical Summary of Care Provided Yes Facility Type Orders Sent Assessment/Plan Assessment/Plan (1) Non-pressure chronic ulcer of left heel and midfoot with fat layer exposed: CODE(S): L97.422 - Non-pressure chronic ulcer of left heel and midfoot with fat layer exposed PLAN: Patient was examined and evaluated. All findings were discussed with the patient. All questions were answered to the patient's satisfaction. Excisional debridement down to and including subcutaneous tissue with a number 3 mm dermal curette to the full-thickness wound to the left medial heel done without incident. Predebridement measurement was 0.3 x 1.0 x 0.1 cm. Postdebridement measurement is 0.5 x 1.5 x 0.1 cm. The left heel was wiped clean and patted dry. Triple antibiotic followed by dry sterile dressing and Brad wrap were applied to the left lower extremity. Patient was giving dressing changes and wound care orders as followed: They will switch the triple antibiotic to gentamicin ointment to be applied daily and wrap as above. Patient will also be placed on oral antibiotics doxycycline 100 mg twice daily for 2 weeks, ciprofloxacin 750 mg twice daily for 2 weeks based on microbiology and culture sensitivity results. Risk and benefits about antibiotics were discussed with the patient and her and she agreed to take the prescription as prescribed. Follow-up at the wound care center with Dr. Wright in 1 week.
--- NOTE | 2024-11-03 15:17 | WC ---
PHOTO 11/03/24 LEFT [facility]
== END 2024-11-08 23:59 | disposition home or self-care (01) ==
LOC: WC 11:00
PROVIDERS: PCP Internal Medicine; Referring Provider Psychiatry & Neurology Neurology; Visit Provider Podiatrist Foot & Ankle Surgery
DX: L97.422 Non-pressure chronic ulcer of left heel and midfoot with fat layer exposed (principal)
CPT/HCPCS: 11042; 87070; 87075; 87077; 87186; 87205; 99211; 99212; G0463

== ENCOUNTER 2024-12-01 10:00 | Outpatient (RCR) | payer OTHER, SELFPAY ==
[2024-11-09 00:21] VITALS: BP 134/72; PULSE 94; RESP 18; TEMP 36.4; BMI 31.5
[2024-11-10 10:26] VITALS: BP 113/63; PULSE 101; RESP 16; TEMP 35.7; BMI 31.5
--- NOTE | 2024-11-10 11:35 | PN.PCM_ITS ---
History of Present Illness Date of Service: 11/10/24 Chief Complaint: Left foot wound History of Wound: Left heel full-thickness wound status post excisional removal of benign skin lesion with advancement flap closure. Progress of Wound: Healing stable full-thickness wound left heel Subjective Subjective Mrs. Bowman is a 69-year-old female presenting to wound care center today for follow-up evaluation of full-thickness wound to the medial aspect of the left heel. She has been doing dressing changes as discussed with gentamicin ointment, dry sterile dressing and compression wrap. She is taking her to oral antibiotics as prescribed. She has no discomfort or displeasure is at this time. She admits to minimal pain to left heel. Grateful for care. She is ambulating comfortably with surgical shoe and walker. Denies any trauma. Denies constitutional symptoms. No other pedal complaints at this time. Objective Data Objective Data Vital Signs: Vital Signs Temp Pulse Resp BP O2 Del Method 96.3 F L 101 H 16 113/63 Room Air 11/10/24 10:11/10/24 10:11/10/24 10:11/10/24 10:11/10/24 10:26 Oxygen Delivery Method Room Air Weight: 75.75 kg Body Mass Index (BMI) 31.5 Physical Exam Narrative Vascular: DP and PT pulses are palpable. CFT is brisk. Skin temperature is warm to warm from proximal ankles to distal digits. Nonpitting edema is appre ciated to the left lower extremity. No erythema Neurological: Light touch intact. Protective station is present. Dermatological: Full-thickness wound to the lateral left heel measuring 0.4 x 1.4 x 0.1 cm. No erythema drainage or sign of infection. Excisional debridement down to and including subcutaneous tissue with a number 3 mm dermal curette to the full-thickness wound to the left medial heel done without incident. Predebridement measurement was sanguinous crust postdebridement measurement is 0.4 x 1.4 x 0.1 cm. Musculoskeletal: No pain on palpation to close incision on the left heel. No pain with calf pressure. Debridement Note Debridement Note Debridement Free Text: Excisional debridement down to and including subcutaneous tissue with a number 3 mm dermal curette to the full-thickness wound to the left medial heel done without incident. Predebridement measurement was sanguinous crust postdebridement measurement is 0.4 x 1.4 x 0.1 cm. Post-Debridement Measurements and Additional Note: Post-Debridement Measurements/Treatment WC - Nurse 1 - General Ulcer Assessment Start: 11/10/24 10:26 Freq: Status: Active Protocol: DERRICK Activity Type Activity Date Activity User E-sign Co-sign Detail Recorded Client Recorded Date Recorded By Document 11/10/24 10:26 KW [id number] 11/10/24 10:38 KW Edit Result 11/10/24 10:26 KW (1) [id number] 11/10/24 10:40 KW (1) Temperature (97.8 F-99.1 F) => 96.3 F L Pulse Rate (60-100) => 101 H Blood Pressure (90/60-120/80) => 113/63 Blood Pressure Mean (mm Hg) => 79 11/10/24 10:26 WC - Today's Visit Information Type of service Follow-up Visit (Physician/TERMINAL SUPERVISOR ) Accompanied by Patient Identification Verified (Name & Yes ) Height and Weight Body Mass Index (BMI) 31.5 BMI Classification Obese Vital Signs Temperature (97.8 F-99.1 F) 96.3 F L Temperature Source Temporal Pulse Rate (60-100) 101 H Pulse Location Monitor Respiratory Rate (12-18) 16 Respiratory rate source Observation Oxygen Delivery Method Room Air Blood Pressure (90/60-120/80) 113/63 Blood Pressure Mean (mm Hg) 79 Source Monitor Position Semi-Fowlers Blood Pressure Location Left Arm History Since Last Visit- (Skip if this is Patient's initial visit) Have you changed medications since your No last visit? Any new allergies or adverse reactions No Had a fall/change in ADL's that may No increase risk of falls Signs or symptoms of abuse and/or No neglect since last visit Have you been in the hospital since your No last visit? Has dressing in place as prescribed Yes Has compression in place as prescribed Yes Has offloadiing in place as prescribed Yes Experienced any changes in pain level or No management Left Footwear Surgical Shoe with pressure relief insole Right Footwear Regular Shoe Pain Scale: 0-10 Numeric Is Patient Pain Free? Yes ROEL - Nurse 1 - General Ulcer Measurement Start: 11/10/24 10:26 Freq: Status: Active Protocol: Activity Type Activity Date Activity User E-sign Co-sign Detail Recorded Client Recorded Date Recorded By Document 11/10/24 10:26 KATTY [id number] 11/10/24 10:38 KATTY 11/10/24 10:26 Wound Center Nurse 1 #1 LT MED HEEL -Current Size (cm) - Length 0.1 -Current Size (cm) - Width 0.1 -Current Size (cm) - Depth 0 -Total Square Cm 0.01 -Date of Last Picture (Recall this 11/10/24 field) -Exudate Amt Small -Exudate Type Serosanguineous -Wound Margin Distinct, Outline Attached -Granulation Amt Small (1-33%) -Granulation Quality Red -Necrosis Amt Large (67-100%) -Necrotic Tissue Type Adherent Slough -Texture ([place]-wound Skin Appearance) Assessed,Callus -Moisture ([place]-wound Skin Appearance) Assessed -Color ([place]-wound Skin Appearance) Assessed -Temperature ([place]-wound Skin No Abnormality Appearance) (Pt Warm) -Tenderness on Palpation ([place]-wound No Skin Appearance) -Ulcer Cleansing Rinsed/ Irrigated with Saline -Foul Odor after Cleansing No -Anesthetic Used 5% Lidocaine Gel WC - Nurse 2 - General Ulcer CM Notes Start: 11/10/24 10:26 Freq: Status: Active Protocol: Activity Type Activity Date Activity User E-sign Co-sign Detail Recorded Client Recorded Date Recorded By Document 11/10/24 10:53 MATTHEW [id number] 11/10/24 10:58 MATTHEW 11/10/24 10:53 Wound Center Nurse 2 -Time 10:53 -Correct Patient Yes -Correct Side, Site, Position Yes -Correct Procedure Yes -Procedure Performed Yes -Type of Procedure Debridement -Clinical Debridement Subcutaneous -Tissue Removed Subcutaneous -Post Debridement (cm) - Length 0.4 -Post Debridement (cm) - Width 1.4 -Post Debridement (cm) - Depth 0.1 -Total Square (Post) (cm) 0.56 -Area of Debridement (cm) - Length 0.4 -Area of Debridement (cm) - Width 1.4 -Total Square (Area) (cm) 0.56 -Tunneling No -Undermining/Tunneling No -Circular Undermining No -Wound/Ulcer Outcome Not Healed -Ulcer Cleansing Rinsed/ Irrigated with Saline -Foul Odor after Cleansing No -Bioengineered Tissue No -Bleeding Controlled with Pressure -Treatment Response Procedure Tolerated Well -Offloading No -Debridement - Subq, 1st 20sq cm Yes Pain Scale: 0-10 Numeric Is Patient Pain Free? Yes - Nurse 3 - General Ulcer D/C NN Start: 11/10/24 10:26 Freq: Status: Active Protocol: Activity Type Activity Date Activity User E-sign Co-sign Detail Recorded Client Recorded Date Recorded By Document 11/10/24 11:16 [place] [id number] 11/10/24 11:18 [place] 11/10/24 11:16 Wound Care Center Nurse 3 #1 LT MED HEEL -Foul Odor after Cleansing No -Negative Pressure Wound Therapy N/A -Other Dressing abd -Primary Dressing Covered/Secured with Dry Gauze,Dry Gauze & Roll Gauze,Secured with Tape LLE -Compression Wrap Brad Wrap Pain Scale: 0-10 Numeric Is Patient Pain Free? No L heel -Description Sharp,Throbbing -Duration (hours) Chronic -Comments pt in alot of pain with any movement WC - Visit Discharge Discharge Condition Stable Ambulatory Status Ambulatory, Walker Transportation Private Auto Medication Reconcilliation completed & No provided to patient/care provider Clinical Summary of Care Provided Yes Assessment/Plan Assessment/Plan (1) Non-pressure chronic ulcer of left heel and midfoot with fat layer exposed: CODE(S): L97.422 - Non-pressure chronic ulcer of left heel and midfoot with fat layer exposed PLAN: Patient was examined and evaluated. All findings were discussed with the patient. All questions were answered to the patient's satisfaction. Excisional debridement down to and including subcutaneous tissue with a number 3 mm dermal curette to the full-thickness wound to the left medial heel done without incident. Predebridement measurement was sanguinous crust postdebridement measurement is 0.4 x 1.4 x 0.1 cm. The left lower extremity was wiped clean and patted dry. Gentamicin ointment followed by dry sterile dressing and compression was donned to left lower extremity. Patient will continue dressing changes every other day. She will continue her oral antibiotic as prescribed. Patient is very grateful for her care. I educated the patient that she can go ahead and shower but not soak her left lower extremity and continue dressing changes as discussed. She is grateful for her care and left the office pleased with her visit. Follow-up at the wound care center with Dr. Wright in 1 week.
--- NOTE | 2024-11-11 10:18 | WC ---
PHOTO 11/10/24 LEFT [facility]
[2024-11-17 10:08] VITALS: BP 156/69; PULSE 111; RESP 16; TEMP 37; BMI 31.5
--- NOTE | 2024-11-17 12:23 | PN.PCM_ITS ---
History of Present Illness Date of Service: 11/17/24 Chief Complaint: Left foot wound History of Wound: Left heel full-thickness wound status post excisional removal of benign skin lesion with advancement flap closure. Progress of Wound: Healing stable full-thickness wound left heel Subjective Subjective Mrs. Bowman is a 69-year-old female presenting with concern today for follow-up evaluation of full-thickness wound status post benign skin lesion removal and delayed primary closure to the left heel. She is doing well. She is walking pain-free in surgical shoes. She is taking all her oral antibiotics as prescribed. She is doing dressing changes every other day as instructed with gentamicin gel. The wound is almost healed. Denies trauma. Denies constitutional symptoms. No other pedal complaints at this time. Objective Data Objective Data Vital Signs: Vital Signs Temp Pulse Resp BP O2 Del Method 98.6 F 111 H 16 156/69 H Room Air 11/17/24 10:08 11/17/24 10:08 11/17/24 10:08 11/17/24 10:08 11/17/24 10:08 Oxygen Delivery Method Room Air Weight: 75.75 kg Body Mass Index (BMI) 31.5 Physical Exam Narrative Vascular: DP and PT pulses are palpable. CFT is brisk. Skin temperature is warm to warm from proximal ankles to distal digits. Nonpitting edema is appreciated to the left lower extremity. No erythema Neurological: Light touch intact. Protective station is present. Dermatological: Full-thickness wound to the lateral left heel measuring 0.2 x 0.3 x 0.1 cm. No erythema drainage or sign of infection. Excisional debridement down to and including subcutaneous tissue with a number 3 mm dermal curette to the full-thickness wound to the left medial heel done without incident. Predebridement measurement was sanguinous crust. postdebri caren measurement is 0.2 x 0.3 x 0.1 cm. Musculoskeletal: No pain on palpation to close incision on the left heel. No pain with calf pressure. Debridement Note Debridement Note Debridement Free Text: Excisional debridement down to and including subcutaneous tissue with a number 3 mm dermal curette to the full-thickness wound to the left medial heel done without incident. Predebridement measurement was sanguinous crust. postdebridement measurement is 0.2 x 0.3 x 0.1 cm. Post-Debridement Measurements and Additional Note: Post-Debridement Measurements/Treatment WC - Nurse 1 - General Ulcer Assessment Start: 11/10/24 10:26 Freq: Status: Active Protocol: DERRICK Activity Type Activity Date Activity User E-sign Co-sign Detail Recorded Client Recorded Date Recorded By Document 11/10/24 10:26 KW [id number] 11/10/24 10:38 KW Edit Result 11/10/24 10:26 KW (1) [id number] 11/10/24 10:40 KW Document 11/17/24 10:08 KW [id number] 11/17/24 10:16 KW (1) Temperature (97.8 F-99.1 F) => 96.3 F L Pulse Rate (60-100) => 101 H Blood Pressure (90/60-120/80) => 113/63 Blood Pressure Mean (mm Hg) => 79 11/10/24 11/17/24 10:26 10:08 WC - Today's Visit Information Type of service Follow-up Visit Follow-up Visit (Physician/NEON TUBE BENDER (Physician/NEON TUBE BENDER ) ) Arrival Mode Ambulatory, Walker Accompanied by Patient Identification Verified (Name & Yes Yes ) Height and Weight Body Mass Index (BMI) 31.5 31.5 BMI Classification Obese Obese Vital Signs Temperature (97.8 F-99.1 F) 96.3 F L 98.6 F Temperature Source Temporal Temporal Pulse Rate (60-100) 101 H 111 H Pulse Location Monitor Monitor Respiratory Rate (12-18) 16 16 Respiratory rate source Observation Observation Oxygen Delivery Method Room Air Room Air Blood Pressure (90/60-120/80) 113/63 156/69 H Blood Pressure Mean (mm Hg) 79 98 Source Monitor Monitor Position Semi-Fowlers Semi-Fowlers Blood Pressure Location Left Arm Left Arm History Since Last Visit- (Skip if this is Patient's initial visit) Have you changed medications since your No No last visit? Any new allergies or adverse reactions No No Had a fall/change in ADL's that may No No increase risk of falls Signs or symptoms of abuse and/or No No neglect since last visit Have you been in the hospital since your No No last visit? Has dressing in place as prescribed Yes Yes Has compression in place as prescribed Yes Yes Has offloadiing in place as prescribed Yes Yes Experienced any changes in pain level or No No management Left Footwear Surgical Shoe Surgical Shoe with pressure with pressure relief insole relief insole Right Footwear Regular Shoe Regular Shoe Pain Scale: 0-10 Numeric Is Patient Pain Free? Yes Yes WC - Nurse 1 - General Ulcer Measurement Start: 11/10/24 10:26 Freq: Status: Active Protocol: Activity Type Activity Date Activity User E-sign Co-sign Detail Recorded Client Recorded Date Recorded By Document 11/10/24 10:26 KW [id number] 11/10/24 10:38 KW Document 11/17/24 10:08 KW [id number] 11/17/24 10:16 KW 11/10/24 11/17/24 10:26 10:08 Wound Center Nurse 1 #1 LT MED HEEL -Current Size (cm) - Length 0.1 0.1 -Current Size (cm) - Width 0.1 0.1 -Current Size (cm) - Depth 0 0 -Total Square Cm 0.01 0.01 -Date of Last Picture (Recall this 11/10/24 11/17/24 field) -Exudate Amt Small None Present -Exudate Type Serosanguineous -Wound Margin Distinct, Distinct, Outline Outline Attached Attached -Granulation Amt Small (1-33%) Small (1-33%) -Granulation Quality Red [place] -Necrosis Amt Large (67-100%) -Necrotic Tissue Type Adherent Slough -Texture ([place]-wound Skin Appearance) Assessed,Callus Assessed -Moisture ([place]-wound Skin Appearance) Assessed Assessed -Color ([place]-wound Skin Appearance) Assessed Assessed -Temperature ([place]-wound Skin No Abnormality No Abnormality Appearance) (Pt Warm) (Pt Warm) -Tenderness on Palpation ([place]-wound No No Skin Appearance) -Ulcer Cleansing Rinsed/ Soap and Water Irrigated with Saline -Foul Odor after Cleansing No No -Anesthetic Used 5% Lidocaine 5% Lidocaine Gel Gel WC - Nurse 2 - General Ulcer CM Notes Start: 11/10/24 10:26 Freq: Status: Active Protocol: Activity Type Activity Date Activity User E-sign Co-sign Detail Recorded Client Recorded Date Recorded By Document 11/10/24 10:53 MATTHEW [id number] 11/10/24 10:58 JF Document 11/17/24 10:27 MATTHEW [id number] 11/17/24 10:31 JF 11/10/24 11/17/24 10:53 10:27 Wound Center Nurse 2 #1 LT MED HEEL -Time 10:53 10:28 -Correct Patient Yes Yes -Correct Side, Site, Position Yes Yes -Correct Procedure Yes Yes -Procedure Performed Yes Yes -Type of Procedure Debridement Debridement -Clinical Debridement Subcutaneous Subcutaneous -Tissue Removed Subcutaneous Subcutaneous -Post Debridement (cm) - Length 0.4 0.2 -Post Debridement (cm) - Width 1.4 0.3 -Post Debridement (cm) - Depth 0.1 0.1 -Total Square (Post) (cm) 0.56 0.06 -Area of Debridement (cm) - Length 0.4 0.2 -Area of Debridement (cm) - Width 1.4 0.3 -Total Square (Area) (cm) 0.56 0.06 -Tunneling No No -Undermining/Tunneling No No -Circular Undermining No No -Wound/Ulcer Outcome Not Healed Not Healed -Ulcer Cleansing Rinsed/ Rinsed/ Irrigated with Irrigated with Saline Saline -Foul Odor after Cleansing No No -Bioengineered Tissue No No -Bleeding Controlled with Pressure Pressure -Treatment Response Procedure Procedure Tolerated Well Tolerated Well -Offloading No No -Debridement - Subq, 1st 20sq cm Yes Yes Pain Scale: 0-10 Numeric Is Patient Pain Free? Yes Yes - Nurse 3 - General Ulcer D/C NN Start: 11/10/24 10:26 Freq: Status: Active Protocol: Activity Type Activity Date Activity User E-sign Co-sign Detail Recorded Client Recorded Date Recorded By Document 11/10/24 11:16 CA [id number] 11/10/24 11:18 CA Document 11/17/24 10:36 [id number] 11/17/24 10:38 11/10/24 11/17/24 11:16 10:36 Wound Care Center Nurse 3 #1 LT MED HEEL -Foul Odor after Cleansing No -Negative Pressure Wound Therapy N/A -Other Dressing abd antibiotic ointment for a week then switch to betadine -Primary Dressing Covered/Secured with Dry Gauze,Dry Dry Gauze & Gauze & Roll Roll Gauze, Gauze,Secured Secured with with Tape Tape LLE -Compression Wrap Brad Wrap -Tubular Bandage Single Layer -Size of Tubigrip Used Size D -Size D ($) 1 Pain Scale: 0-10 Numeric Is Patient Pain Free? No Yes L heel -Description Sharp,Throbbing -Duration (hours) Chronic -Comments pt in alot of pain with any movement WC - Visit Discharge Discharge Condition Stable Stable Ambulatory Status Ambulatory, Ambulatory, Walker Walker Transportation Private Auto Private Auto Medication Reconcilliation completed & No No provided to patient/care provider Clinical Summary of Care Provided Yes Yes Assessment/Plan Assessment/Plan (1) Non-pressure chronic ulcer of left heel and midfoot with fat layer exposed: CODE(S): L97.422 - Non-pressure chronic ulcer of left heel and midfoot with fat layer exposed PLAN: Patient was examined and evaluated. All findings were discussed with the patient. All questions were answered to the patient's satisfaction. Excisional debridement down to and including subcutaneous tissue with a number 3 mm dermal curette to the full-thickness wound to the left medial heel done without incident. Predebridement measurement was sanguinous crust. postdebridement measurement is 0.2 x 0.3 x 0.1 cm. The left lower extremity was wiped clean and patted dry. Gentamicin ointment followed by dry sterile dressing and compression was donned to left lower extremity. Patient will continue dressing changes every other day. She will continue her oral antibiotic as prescribed. Patient is very grateful for her care. I educated the patient that she can go ahead and shower but not soak her left lower extremity and continue dressing changes as discussed. She is grateful for her care and left the office pleased with her visit. Follow-up at the wound care center with Dr. Wright in 1 week.
[2024-12-01 10:23] VITALS: BP 154/81; PULSE 106; RESP 14; TEMP 37.4; BMI 31.5
--- NOTE | 2024-12-01 11:34 | PCM.WC.PN ---
History of Present Illness Date of Service: 12/01/24 Chief Complaint: Left foot wound History of Wound: Left heel full-thickness wound status post excisional removal of benign skin lesion with advancement flap closure. Progress of Wound: Healing stable full-thickness wound left heel Subjective Subjective Mrs. Bowman is a 69-year-old female presenting with concern today for follow-up evaluation of full-thickness wound status post benign skin lesion removal and delayed primary closure to the left heel. Patient has continue dressing changes as discussed. She is completed all her on antibiotics. She states that her incision/full-thickness wound is now healed. She also complains of pain to the plantar aspect of the left foot as she is concerned for a foreign body. She denies trauma. Denies constitutional symptoms. No other pedal complaints at this time Objective Data Objective Data Vital Signs: Vital Signs Temp Pulse Resp BP O2 Del Method 99.3 F H 106 H 14 154/81 H Room Air 12/01/24 10:12/01/24 10:12/01/24 10:12/01/24 10:11/17/24 10:08 Oxygen Delivery Method Room Air Weight: 75.75 kg Body Mass Index (BMI) 31.5 Physical Exam Narrative Vascular: DP and PT pulses are palpable. CFT is brisk. Skin temperature is warm to warm from proximal ankles to distal digits. Nonpitting edema is appreciated to the left lower extremity. No erythema Neurological: Light touch intact. Protective station is present. Dermatological: Full-thickness wound/advancement flap/incision is now closed and healed to the medial aspect of the left foot. There is evidence of a foreign body to the subfirst metatarsal phalangeal joint with no erythema or sign of infection. Topical anesthesia was applied to the foreign body, once confirmed using a #15 blade the foreign body was removed and showed evidence of a piece of wood measuring approximately 0.4 x 0.1 cm. Musculoskeletal: No pain on palpation to close incision on the left heel. No pain with calf pressure. Debridement Note Debridement Note Post-Debridement Measurements and Additional Note: Post-Debridement Measurements/Treatment ROEL - Nurse 1 - General Ulcer Assessment Start: 11/10/24 10:26 Freq: Status: Active Protocol: DERRICK Activity Type Activity Date Activity User E-sign Co-sign Detail Recorded Client Recorded Date Recorded By Document 11/10/24 10:26 KW [id number] 11/10/24 10:38 KW Edit Result 11/10/24 10:26 KW (1) [id number] 11/10/24 10:40 KW Document 11/17/24 10:08 KW [id number] 11/17/24 10:16 KW Document 12/01/24 10:23 ML [id number] 12/01/24 10:28 ML (1) Temperature (97.8 F-99.1 F) => 96.3 F L Pulse Rate (60-100) => 101 H Blood Pressure (90/60-120/80) => 113/63 Blood Pressure Mean (mm Hg) => 79 11/10/24 11/17/24 12/01/24 10:26 10:08 10:23 WC - Today's Visit Information Type of service Follow-up Visit Follow-up Visit Follow-up Visit (Physician/HOSPITAL PHARMACY TECHNICIAN (Physician/HOSPITAL PHARMACY TECHNICIAN (Physician/HOSPITAL PHARMACY TECHNICIAN ) ) ) Arrival Mode Ambulatory, Ambulatory Walker Accompanied by Patient Identification Verified (Name & Yes Yes Yes ) Patient Requires Transmission-Based No Precautions Height and Weight Body Mass Index (BMI) 31.5 31.5 31.5 BMI Classification Obese Obese Obese Vital Signs Temperature (97.8 F-99.1 F) 96.3 F L 98.6 F 99.3 F H Temperature Source Temporal Temporal Temporal Pulse Rate (60-100) 101 H 111 H 106 H Pulse Location Monitor Monitor Monitor Respiratory Rate (12-18) 16 16 14 Respiratory rate source Observation Observation Observation Oxygen Delivery Method Room Air Room Air Blood Pressure (90/60-120/80) 113/63 156/69 H 154/81 H Blood Pressure Mean (mm Hg) 79 98 105 Source Monitor Monitor Monitor Position Semi-Fowlers Semi-Fowlers Sitting Blood Pressure Location Left Arm Left Arm Right Arm History Since Last Visit- (Skip if this is Patient's initial visit) Have you changed medications since your No No No last visit? Any new allergies or adverse reactions No No No Had a fall/change in ADL's that may No No No increase risk of falls Signs or symptoms of abuse and/or No No No neglect since last visit Have you been in the hospital since your No No No last visit? Has dressing in place as prescribed Yes Yes Yes Has compression in place as prescribed Yes Yes N/A Has offloadiing in place as prescribed Yes Yes N/A Experienced any changes in pain level or No No No management Left Footwear Surgical Shoe Surgical Shoe with pressure with pressure relief insole relief insole Right Footwear Regular Shoe Regular Shoe Pain Scale: 0-10 Numeric Is Patient Pain Free? Yes Yes No WC - Nurse 1 - General Ulcer Measurement Start: 11/10/24 10:26 Freq: Status: Active Protocol: Activity Type Activity Date Activity User E-sign Co-sign Detail Recorded Client Recorded Date Recorded By Document 11/10/24 10:26 KW [id number] 11/10/24 10:38 KW Document 11/17/24 10:08 KW [id number] 11/17/24 10:16 KW Document 12/01/24 10:23 ML [id number] 12/01/24 10:28 ML 11/10/24 11/17/24 12/01/24 10:26 10:08 10:23 Wound Center Nurse 1 #1 LT MED HEEL -Current Size (cm) - Length 0.1 0.1 0.1 -Current Size (cm) - Width 0.1 0.1 0.1 -Current Size (cm) - Depth 0 0 0.1 -Total Square Cm 0.01 0.01 0.01 -Date of Last Picture (Recall this 11/10/24 11/17/24 field) -Exudate Amt Small None Present None Present -Exudate Type Serosanguineous Serosanguineous -Wound Margin Distinct, Distinct, Outline Outline Attached Attached -Granulation Amt Small (1-33%) Small (1-33%) Medium (34-66%) -Granulation Quality Red [place] -Slough/Fibrin No -Necrosis Amt Large (67-100%) Medium (34-66%) -Necrotic Tissue Type Adherent Slough -Texture ([place]-wound Skin Appearance) Assessed,Callus Assessed Assessed -Moisture ([place]-wound Skin Appearance) Assessed Assessed Assessed -Color ([place]-wound Skin Appearance) Assessed Assessed Assessed -Temperature ([place]-wound Skin No Abnormality No Abnormality No Abnormality Appearance) (Pt Warm) (Pt Warm) (Pt Warm) -Tenderness on Palpation ([place]-wound No No Yes Skin Appearance) -Ulcer Cleansing Rinsed/ Soap and Water Soap and Water Irrigated with Saline -Foul Odor after Cleansing No No -Anesthetic Used 5% Lidocaine 5% Lidocaine 5% Lidocaine Gel Gel Gel ROEL - Nurse 2 - General Ulcer CM Notes Start: 11/10/24 10:26 Freq: Status: Active Protocol: Activity Type Activity Date Activity User E-sign Co-sign Detail Recorded Client Recorded Date Recorded By Document 11/10/24 10:53 [id number] 11/10/24 10:58 Document 11/17/24 10:27 [id number] 11/17/24 10:31 Document 12/01/24 10:35 [id number] 12/01/24 10:36 JF 11/10/24 11/17/24 12/01/24 10:53 10:27 10:35 Wound Center Nurse 2 #1 LT MED HEEL -Time 10:53 10:28 -Correct Patient Yes Yes Yes -Correct Side, Site, Position Yes Yes No -Correct Procedure Yes Yes No -Procedure Performed Yes Yes No -Type of Procedure Debridement Debridement -Clinical Debridement Subcutaneous Subcutaneous -Tissue Removed Subcutaneous Subcutaneous -Post Debridement (cm) - Length 0.4 0.2 0 -Post Debridement (cm) - Width 1.4 0.3 0 -Post Debridement (cm) - Depth 0.1 0.1 0 -Total Square (Post) (cm) 0.56 0.06 0 -Area of Debridement (cm) - Length 0.4 0.2 0 -Area of Debridement (cm) - Width 1.4 0.3 0 -Total Square (Area) (cm) 0.56 0.06 0 -Tunneling No No -Undermining/Tunneling No No -Circular Undermining No No -Wound/Ulcer Outcome Not Healed Not Healed Healed- Epithelialized -Ulcer Cleansing Rinsed/ Rinsed/ Irrigated with Irrigated with Saline Saline -Foul Odor after Cleansing No No -Bioengineered Tissue No No -Bleeding Controlled with Pressure Pressure -Treatment Response Procedure Procedure Tolerated Well Tolerated Well -Offloading No No -Debridement - Subq, 1st 20sq cm Yes Yes Pain Scale: 0-10 Numeric Is Patient Pain Free? Yes Yes Yes ROEL - Nurse 3 - General Ulcer D/C NN Start: 11/10/24 10:26 Freq: Status: Active Protocol: Activity Type Activity Date Activity User E-sign Co-sign Detail Recorded Client Recorded Date Recorded By Document 11/10/24 11:16 VT [id number] 11/10/24 11:18 MT Document 11/17/24 10:36 KW [id number] 11/17/24 10:38 KW Document 12/01/24 10:37 JF [id number] 12/01/24 10:37 JF 11/10/24 11/17/24 12/01/24 11:16 10:36 10:37 Wound Care Center Nurse 3 #1 LT MED HEEL -Foul Odor after Cleansing No -Negative Pressure Wound Therapy N/A -Other Dressing abd antibiotic ointment for a week then switch to betadine -Primary Dressing Covered/Secured with Dry Gauze,Dry Dry Gauze & Gauze & Roll Roll Gauze, Gauze,Secured Secured with with Tape Tape LLE -Compression Wrap Brad Wrap -Tubular Bandage Single Layer Single Layer -Size of Tubigrip Used Size D Size D -Size D ($) 1 1 Pain Scale: 0-10 Numeric Is Patient Pain Free? No Yes Yes L heel -Description Sharp,Throbbing -Duration (hours) Chronic -Comments pt in alot of pain with any movement WC - Visit Discharge Discharge Condition Stable Stable Stable Ambulatory Status Ambulatory, Ambulatory, Ambulatory, Walker Walker Walker Transportation Private Auto Private Auto Private Auto Accompanied by Medication Reconcilliation completed & No No Yes provided to patient/care provider Clinical Summary of Care Provided Yes Yes Yes Assessment/Plan Assessment/Plan (1) Foreign body in left foot: CODE(S): S90.852A - Superficial foreign body, left foot, initial encounter QUALIFIERS: Encounter type: initial encounter Qualified Code(s): S90.852A - Superficial foreign body, left foot, initial encounter PLAN: Patient was examined and evaluated. All findings were discussed with the patient. All questions were answered to the patient's satisfaction. After physical examination the patient's full-thickness wound/advancement flap/incision is now 100% healed. I educated the patient that she can continue to weight-bear as tolerated with compression wrap/Tubigrip which she was understanding of. Educated the patient on signs symptoms of infection. There is no need for further antibiotic treatment as the patient shows no sign of infection. However there is evidence of a foreign body that will be removed today. Patient was educated on risks of leaving the foreign body intact and she has agreed to have it removed. Topical anesthesia was applied to the foreign body, once confirmed using a #15 blade the foreign body was removed and showed evidence of a piece of wood measuring approximately 0.4 x 0.1 cm. No need for topical antibiotic use at this time. Patient is very grateful for her care and will follow-up in clinic in 2 weeks and if she is unremarkable at that time she will be discharged from the wound care center. Follow-up at the wound care center with Dr. Wright in 2 week. (2) Non-pressure chronic ulcer of left heel and midfoot with fat layer exposed: CODE(S): L97.422 - Non-pressure chronic ulcer of left heel and midfoot with fat layer exposed
== END 2024-12-08 23:59 | disposition home or self-care (01) ==
LOC: WC 10:00
PROVIDERS: PCP Internal Medicine; Referring Provider Psychiatry & Neurology Neurology; Visit Provider Podiatrist Foot & Ankle Surgery
DX: Z09 Encounter for follow-up examination after completed treatment for conditions other than malignant neoplasm (principal); L97.422 Non-pressure chronic ulcer of left heel and midfoot with fat layer exposed; S90.852A Superficial foreign body, left foot, initial encounter; X58.XXXA Exposure to other specified factors, initial encounter; Z18.89 Other specified retained foreign body fragments
CPT/HCPCS: 11042; 99213; G0463

== ENCOUNTER 2024-12-15 08:18 | Outpatient (RCR) | payer OTHER, SELFPAY ==
[2024-12-09 00:29] VITALS: BP 154/81; PULSE 106; RESP 14; TEMP 37.4; BMI 31.5
[2024-12-15 10:20] VITALS: BP 155/69; PULSE 112; RESP 18; TEMP 36.8; BMI 31.5
--- NOTE | 2024-12-15 11:09 | PCM.WC.PN ---
History of Present Illness Date of Service: 12/15/24 Chief Complaint: Left foot wound History of Wound: Left heel full-thickness wound status post excisional removal of benign skin lesion with advancement flap closure. Progress of Wound: Healing stable full-thickness wound left heel Subjective Subjective Mrs. Bowman is a 69-year-old female presenting to clinic today follow-up evaluation of soft tissue mass removal with advancement flap closure to the left medial heel. The patient states her incision is now under percent healed. She has no pain with weightbearing. She is doing well. She is great for care. Denies trauma. Denies constitutional symptoms. No other pedal complaints at this time. Objective Data Objective Data Vital Signs: Vital Signs Temp Pulse Resp BP O2 Del Method 98.2 F 112 H 18 155/69 H Room Air 12/15/24 10:20 12/15/24 10:20 12/15/24 10:20 12/15/24 10:20 12/15/24 10:20 Oxygen Delivery Method Room Air Weight: 75.75 kg Body Mass Index (BMI) 31.5 Physical Exam Narrative Vascular: DP and PT pulses are palpable. CFT is brisk. Skin temperature is warm to warm from proximal ankles to distal digits. Nonpitting edema is appreciated to the left lower extremity. No erythema Neurological: Light touch intact. Protective station is present. Dermatological: Full-thickness wound to the medial left foot is now healed. No evidence of skin breakdown or concern for infection Musculoskeletal: No pain on palpation to close incision on the left heel. No pain with calf pressure. 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 [employer] ) Arrival Mode Ambulatory Accompanied by Patient Identification Verified (Name & Yes ) Safety Precautions Fall Prevention Height and Weight Body Mass Index (BMI) 31.5 BMI Classification Obese Vital Signs Temperature (97.8 F-99.1 F) 98.2 F Temperature Source Temporal Pulse Rate (60-100) 112 H Pulse Location Monitor Respiratory Rate (12-18) 18 Respiratory rate source Observation Oxygen Delivery Method Room Air Blood Pressure (90/60-120/80) 155/69 H Blood Pressure Mean (mm Hg) 97 Source Monitor Position Sitting Blood Pressure Location Right Arm History Since Last Visit- (Skip if this is Patient's initial visit) Has dressing in place as prescribed Yes Has compression in place as prescribed Yes Has offloadiing in place as prescribed Yes Experienced any changes in pain level or Yes management Left Footwear Regular Shoe Right Footwear Regular Shoe Pain Scale: 0-10 Numeric Is Patient Pain Free? Yes WC - Nurse 1 - General Ulcer Measurement Start: 12/15/24 10:20 Freq: Status: Active Protocol: Activity Type Activity Date Activity User E-sign Co-sign Detail Recorded Client Recorded Date Recorded By Document 12/15/24 10:20 WA [id number] 12/15/24 10:26 WA 12/15/24 10:20 Wound Center Nurse 1 #1 LT MED HEEL -Date of Last Picture (Recall this 12/15/24 field) -Photo Taken Yes -Epithelialization Large 67-100% -Tunneling No -Undermining/Tunneling No -Circular Undermining No -Wound Comment(s) patient healed. Lower Limb Edema Present NA ROEL - Nurse 2 - General Ulcer CM Notes Start: 12/15/24 10:20 Freq: Status: Active Protocol: Activity Type Activity Date Activity User E-sign Co-sign Detail Recorded Client Recorded Date Recorded By Document 12/15/24 10:44 [id number] 12/15/24 10:45 12/15/24 10:44 Wound Center Nurse 2 #1 LT MED HEEL -Correct Patient Yes -Correct Side, Site, Position No -Correct Procedure No -Procedure Performed No -Post Debridement (cm) - Length 0 -Post Debridement (cm) - Width 0 -Post Debridement (cm) - Depth 0 -Total Square (Post) (cm) 0 -Area of Debridement (cm) - Length 0 -Area of Debridement (cm) - Width 0 -Total Square (Area) (cm) 0 -Wound/Ulcer Outcome Healed- Epithelialized Pain Scale: 0-10 Numeric Is Patient Pain Free? Yes ROEL - Nurse 3 - General Ulcer D/C NN Start: 12/15/24 10:20 Freq: Status: Active Protocol: Activity Type Activity Date Activity User E-sign Co-sign Detail Recorded Client Recorded Date Recorded By Document 12/15/24 10:45 [email or web address] [id number] 12/15/24 10:45 MATTHEW 12/15/24 10:45 Is Patient Pain Free? Yes WC - Visit Discharge Discharge Condition Stable Ambulatory Status Ambulatory, Wheelchair Transportation Private Auto Accompanied by Medication Reconcilliation completed & Yes provided to patient/care provider Clinical Summary of Care Provided Yes Assessment/Plan Assessment/Plan (1) Non-pressure chronic ulcer of left heel and midfoot with fat layer exposed: CODE(S): L97.422 - Non-pressure chronic ulcer of left heel and midfoot with fat layer exposed PLAN: Patient was examined and evaluated. All findings were discussed with the patient. All questions were answered to the patient's satisfaction. After physical examination the patient's full-thickness wound/incision to the medial aspect of the left foot is healed. There is no evidence of skin breakdown or concern for new infection. The patient continue to ambulate as tolerated in regular slippers and or shoe gear. The patient can follow-up with me in private office as needed. Patient is grateful for her care and will be discharged from the wound care center today.
--- NOTE | 2024-12-16 10:27 | WC ---
PHOTO 12/15/[address] [facility]
--- NOTE | 2024-12-16 10:29 | WC ---
PHOTO 12/15/24 LEFT MEDIAL HEEL (H)
== END 2025-01-06 14:36 | disposition home or self-care (01) ==
LOC: WC 08:18
PROVIDERS: PCP Internal Medicine; Referring Provider Psychiatry & Neurology Neurology; Visit Provider Podiatrist Foot & Ankle Surgery
DX: L97.422 Non-pressure chronic ulcer of left heel and midfoot with fat layer exposed (principal)
CPT/HCPCS: 99213; G0463

== ENCOUNTER → 2025-02-18 | Outpatient (CLI) | payer OTHER, SELFPAY ==
--- OUTSIDE RECORDS SUMMARY | 2025-02-18 07:25 | XMS RPT_ITS | CCD ---
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 Danny Herrera Primary Care Provider [phone] Dr. Danny Herrera Attending Provider [phone] Dr. Danny Herrera Referring Provider [phone] Dr. Danny Herrera Primary Care Provider [phone] Javier, Dr. Delgado Referring Provider [phone] Dilcia DUMONT, TIM-Dat Lange Attending Provider [phone] Dr. Danny Herrera MD Primary Care Provider Javier HEREDIA, Dr. Delgado Referring Provider [phone] Dr. Paresh Arellano MD Attending Provider [phone] Kyle ROBLESM, Dr. Mackay Attending Provider Dr. Paresh Arellano MD Referring Provider [phone] Kyle ROBLESM, Dr. Mackay Referring Provider Dr. Danny Herrera MD Attending Provider [phone] Dr. Heriberto Wyatt MD Attending Provider Provider, Ed Physician Attending Provider Frank bronson Provider, Ed Physician Emergency Provider Frank Herrera MD, Dr. Delgado Primary Care Provider Dr. Danny Herrera MD Referring Provider [phone] Dr. Paresh Arellano MD Attending Provider [phone] Javier HEREDIA, Dr. Delgado Primary Care Provider Adan HEREDIA, Dr. Yoder Referring Provider [phone] Kyle DPM, Dr. Mackay Attending Provider Kyle DPM, Dr. Mackay Referring Provider Oleghe, Efewongbe Primary Care Unavailable Provider, Ed Physician Attending Unavailab le Leeanna Johnson Attending Unavailable Oleghe, Efewongbe Primary Care Unavailable Shainalanki Leeanna Referring Unavailable Oleghe, Efewongbe Primary Care Unavailable Marilee Curtis Attending Unavailable Marilee Curtis Referring Unavailable Paresh Arellaon Referring Unavailable Paresh Arellano Attending Unavailable Oleghe, Efewongbe Primary Care Unavailable Oleghe, Efewongbe Primary Care Unavailable Thompson Wright Attending Unavailable Paresh Arellano Referring Unavailable Oleghe, Efewongbe Primary Care Unavailable Oleghe, Efewongbe Consulting Unavailable Paresh Arellano Referring Unavailable Paresh Arellano Attending Unavailable Oleghe, Efewongbe Primary Care Unavailable Oleghe, Efewongbe Attending Unavailable Oleghe, Efewongbe Referring Unavailable Thompson Wright Attending Unavailable Paresh Arellano Referring Unavailable Oleghe, Efewongbe Primary Care Unavailable Paresh Arellano Attending Unavailable Oleghe, Efewongbe Referring Unavailable Oleghe, Efewongbe Primary Care Unavailable Oleghe, Efewongbe Referring Unavailable Oleghe, Efewongbe Attending Unavailable Oleghe, Efewongbe Primary Care Unavailable Paresh Arellano Attending Unavailable Oleghe, Efewongbe Primary Care Unavailable Oleghe, Efewongbe Referring Unavailable Oleghe, Efewongbe Primary Care Unavailable Rufino Velez Attending Unavailable Oleghe, Efewongbe Primary Care Unavailable Paresh Arellano Attending Unavailable Oleghe, Efewongbe Referring Unavailable Thompson Wright Attending Unavailable Paresh Arellano Referring Unavailable Oleghe, Efewongbe Primary Care Unavailable Oleghe, Efewongbe Referring Unavailable Oleghe, Efewongbe Attending Unavailable Oleghe, Efewongbe Primary Care Unavailable Paresh Arellano Referring Unavailable Oleghe, Efewongbe Primary Care Unavailable Wright, Thompson Attending Unavailable Oleghe, Efewongbe Primary Care Unavailable Wright, Thompson Referring Unavailable Wright, Thompson Attending Unavailable Paresh Arellano Referring Unavailable Oleghe, Efewongbe Primary Care Unavailable Wright, Thompson Attending Unavailable Oleghe, Efewongbe Attending Unavailable Oleghe, Efewongbe Referring Unavailable Oleghe, Efewongbe Primary Care Unavailable Oleghe, Efewongbe Primary Care Unavailable Oleghe, Efewongbe Attending Unavailable Oleghe, Efewongbe Referring Unavailable Oleghe, Efewongbe Primary Care Unavailable Wright, Thompson Referring Unavailable Heriberto Wyatt Attending Unavailable Jaqui Carey Admitting Unavailable Jaqui Carey Attending Unavailable Oleghe, Efewongbe Primary Care Unavailable Adeina, Maryr Consulting Unavailable Nina Murguia Consulting Unavailable Cynthia Prince Consulting Unavailable Earl Ugalde Consulting Unavailable Rahat Garcia Consulting Unavailable Omar Esparza Consulting Unavailable ALONZO RUSH Consulting Unavailable Fransisca Leal Consulting Unavailable Mckenna Trujillo Consulting Unavailable Minesh Kaminski Consulting Unavailable Sofie Leahy Consulting Unavailable Salvador Chen Consulting Unavailable Dilcia Chapman Consulting Unavailable Liz Rasmussen Consulting Unavailable Toby Weinberg Consulting Unavailable Beata Meyer Consulting Unavailable Vaibhav José Consulting Unavailable Jaziel Owen Consulting Unavailable Fabien Murray Consulting Unavailable Rachel Candelaria Consulting Unavailable Rodriguez Garza Consulting UnavailHardeep Navarro Consulting Unavailable David Childs Consulting Unavailable Cain Velazquez Consulting Unavailable Yolanda Carey Consulting Unavailable Yao Zapata Consulting Unavailable Jaqui Carey Consulting Unavailable Seregam, Conchita Dilcia Attending Unavailable Koram, Conchita Dilcia Consulting Unavailable Nazario Cook Consulting Unavailable Oleghe, Efewongbe Primary Care Unavailable Oleghe, Efewongbe Referring Unavailable Yolanda Nuno Attending Unavailable Jaqui Carey Admitting Unavailable Koram, Conchita Dilcia Attending Unavailable Oleghe, Efewongbe Primary Care Unavailable Adeina, Amir Consulting Unavailable Shantal Nina Consulting Unavailable Cynthia Prince Consulting Unavailable Earl Ugalde Consulting Unavailable Rahat Garcia Consulting Unavailable Omar Esparza Consulting Unavailable ALONZO RUSH Consulting Unavailable Fransisca Leal Consulting Unavailable Mckenna Trujillo Consulting Unavailable Minesh Kaminski Consulting Unavailable Sofie Leahy Consulting Unavailable Salvador Chen Consulting Unavailable Dilcia Chapman Consulting Unavailable Liz Rasmussen Consulting Unavailable Toby Weinberg Consulting Unavailable Beata Meyer Consulting Unavailable Vaibhav José Consulting Unavailable Jaziel Owen Consulting Unavailable Fabien Murray Consulting Unavailable Rachel Candelaria Consulting Unavailable Rodriguez Garza Consulting UnavailHardeep Navarro Consulting Unavailable David Childs Consulting Unavailable Cain Velazquez Consulting Unavailable Yolanda Carey Consulting Unavailable Yao Zapata Consulting Unavailable Jaqui Carey Consulting Unavailable Conchita Ding Consulting Unavailable Nazario Cook Consulting Unavailable Oleghe, Efewongbe Primary Care Unavailable Thompson Wright Referring Unavailable Thompson Wright Attending Unavailable Oleghe, Efewongbe Primary Care Unavailable Thompson Wright Attending Unavailable Oleghe, Efewongbe Referring Unavailable Oleghe, Efewongbe Attending Unavailable Oleghe, Efewongbe Primary Care Unavailable Allergies Allergy Classification Reported Allergen(s) Allergy Type Date of Onset Reaction(s) Facility (6 sources) adalimumab Drug Allergy 08-08-2021 unknown [facility] (6 sources) apremilast Drug Allergy 08-08-2021 unknown [facility] (6 sources) inFLIXimab Drug Allergy 08-08-2021 unknown [facility] (6 sources) inFLIXimab Drug Allergy 08-08-2021 unknown [facility] (6 sources) leflunomide Drug Allergy 08-08-2021 Other [facility] Comment on above: LIVER ENZYMES ELEVAT ED (6 sources) Methotrexate Drug Allergy 08-08-2021 Other [facility] Comment on above: INCREASED LIVER ENZY MES (6 sources) sulfaSALAzine Drug Allergy 08-08-2021 Other [facility] Comment on above: ELEVATED LIVER ENZYM ES (6 sources) traMADol Drug Allergy 08-08-2021 seizures [facility] (1 source) adalimumab Drug Allergy 01-13-2025 [facility] (1 source) apremilast Drug Allergy 01-13-2025 [facility] (1 source) inFLIXimab Drug Allergy 01-13-2025 [facility] (1 source) leflunomide Drug Allergy 01-13-2025 [facility] (1 source) Methotrexate Drug Allergy 01-13-2025 [facility] (1 source) sulfaSALAzine Drug Allergy 01-13-2025 [facility] (1 source) traMADol Drug Allergy 01-13-2025 [facility] (1 source) infliximab-dyyb Drug allergy (disorder) 01-13-2025 [facility] Medications Current Medications Medication Drug Class(es) Dates Sig (Normalized) Sig (Original) 8 hr acetaminophen 650 mg extended release oral tablet (9 sources) Start: 10-01-2024 take 1 tablet by mouth every eight hours Acetaminophen (Tylenol 8 Hour) 650 mg tablet extended release Active 650 mg PO Q8H 30 October 01, 2024 1:00am Start: 09-08-2017 take 2 tablets by mo uth every four hours as needed for headache Acetaminophen 325 MG tablet Active 650 mg PO EVERY 4 HOURS NEEDED as needed for Headache/Temp>99F September 08, 2017 1:00am Start: 09-08-2017 take 650 mg by mouth every four hours as needed Acetaminophen Active 650 MG PO EVERY 4 HOURS NEEDED September 08, 2017 1:00am ciprofloxacin 750 mg oral tablet (3 sources) Quinolone Antimicrobial Start: 11-03-2024 take 1 tablet by mouth twice daily Ciprofloxacin Hcl 750 mg tablet Active 750 mg PO TWICE A DAY November 03, 2024 12:00am doxycycline hyclate 100 mg oral capsule (3 sources) Tetracycline-class Drug Start: 11-03-2024 take 1 capsule by mouth twice daily Doxycycline Hyclate 100 mg capsule Active 100 mg PO TWICE A DAY November 03, 2024 12:00am gentamicin 0.001 mg/mg topical ointment (3 sources) Start: 11-03-2024 Gentamicin 0.1 % ointment Active 1 NMA TOPICAL DAILY 15 November 03, 2024 12:00am Apply to the full-thickness ulceration to the left heel daily, cover with dry sterile dressing and Brad wrap. predniSONE 5 mg oral tablet (20 sources) Start: 09-30-2024 take 1 tablet by mouth once daily Prednisone 5 mg tablet Active 5 mg PO DAILY September 30, 2024 1:00am Start: 04-14-2023 End: 10-29-2023 take 3 tablets by mouth once daily Prednisone 20 mg tablet Discontinued 60 mg PO DAILY April 14, 2023 12:00am October 29, 2023 8:15am Start: 04-14-2023 take 60 mg by mouth once daily Prednisone Active 60 MG PO DAILY April 14, 2023 12:00am Start: 11-10-2020 End: 11-10-2020 take 2 tablets by mouth once daily Prednisone 5 mg tablet Discontinued 10 mg PO DAILY November 10, 2020 8:01am November 10, 2020 8:41am Start: 11-10-2020 End: 11-10-2020 take 10 mg by mouth once daily Prednisone Discontinued 10 MG PO DAILY November 10, 2020 8:01am November 10, 2020 8:41am Start: 03-21-2020 End: 09-17-2024 take 1 tablet by mouth once daily Prednisone 5 mg tablet Discontinued 0 .ROUTE .COMPLEX 90 January 19, 2024 4:49pm May 28, 2024 12:31pm TAKE 1 TABLET BY MOUTH EVERY DAY Start: 11-23-2014 End: 10-07-2019 apply 1 tablet topically three times daily as needed Prednisone 10 MG tablet Discontinued 10 mg PO 3 TIMES DAILY NEEDED as needed for Rash/Topical Irritation November 23, 2014 12:00am October 07, 2019 9:54am Completed/Discontinued Medications Medication Drug Class(es) Dates Sig (Normalized) Sig (Original) [id number] 200 actuat albuterol 0.09 mg/actuat metered dose inhaler (4 sources) beta2-Adrenergic Agonist Start: 04-14-2023 End: 10-29-2023 Albuterol Sulfate 90 mcg/actuation HFA aerosol inhaler Discontinued 2 NMA INHALATION EVERY 6 HOURS as needed for shortness of breath or wheezing 8.April 14, 2023 12:00am October 29, 2023 8:14am Start: 04-14-2023 take 1 puff(s) by in halation every six hours Albuterol Sulfate Active 2 PUFF INHALATION EVERY 6 HOURS 8.April 14, 2023 12:00am amoxicillin 500 mg oral capsule (4 sources) Penicillin-class Antibacterial Start: 04-14-2023 End: 10-29-2023 take 1 capsule by mouth three times daily Amoxicillin 500 mg capsule Discontinued 500 mg PO THREE TIMES A DAY April 14, 2023 12:00am October 29, 2023 8:14am amoxicillin 875 mg / clavulanate 125 mg oral tablet (6 sources) Penicillin-class Antibacterial Start: 10-06-2024 End: 11-01-2024 Amoxicillin-Pot Clavulanate 875-125 mg tablet Discontinued 1 {tbl} PO TWICE A DAY October 06, 2024 1:00am November 01, 2024 8:12am Start: 05-24-2024 End: 06-08-2024 Amoxicillin-Pot Clavulanate 875-125 mg tablet Discontinued 1 {tbl} PO TWICE A DAY May 24, 2024 12:00am June 08, 2024 10:08am atorvastatin 40 mg oral tablet (3 sources) HMG-CoA Reductase Inhibitor Start: 05-24-2024 End: 09-17-2024 take 1 tablet by mouth at bedtime Atorvastatin 40 mg tablet Discontinued 40 mg PO AT BEDTIME May 24, 2024 12:00am September 17, 2024 3:06pm baclofen 5 mg oral tablet (6 sources) gamma-Aminobutyric Acid-ergic Agonist Start: 10-12-2020 End: 11-10-2020 take 1 tablet by mouth three times daily as needed for pain Baclofen 5 mg tablet Discontinued 5 mg PO THREE TIMES A DAY as needed for muscle pain/spasm October 12, 2020 1:00am November 10, 2020 8:40am ferrous sulfate 325 mg oral tablet (6 sources) Start: 06-01-2020 End: 10-29-2023 take 1 tablet by mouth once daily Ferrous Sulfate 325 mg (65 mg iron) tablet Discontinued 325 mg PO DAILY June 01, 2020 12:00am October 29, 2023 8:14am flurbiprofen 100 mg oral tablet (15 sources) Nonsteroidal Anti-inflammatory Drug Start: 06-08-2024 End: 07-22-2024 take 1 tablet by mouth three times daily as needed for pain Flurbiprofen 100 mg tablet Discontinued 100 mg PO THREE TIMES A DAY as needed for pain June 08, 2024 12:00am July 22, 2024 10:14am Start: 10-12-2020 End: 12-25-2021 take 1 tablet by mouth three times daily as needed Flurbiprofen 100 mg tablet Discontinued 0 .ROUTE .COMPLEX 90 March 30, 2021 1:49pm December 25, 2021 8:20am TAKE 1 TAB BY MOUTH 3 TIMES DAILY NEEDED FOR PAIN.TAKE WITH FOOD.DO NOT TAKE WITH OTHER NSAIDS 1 ml guselkumab 100 mg/ml auto-injector (6 sources) Interleukin-23 Antagonist Start: 07-04-2020 End: 12-25-2021 Guselkumab (Tremfya) 100 mg/mL auto-injector Discontinued 100 mg SC every 4 weeks July 04, 2020 1:00am December 25, 2021 8:20am hydroCHLOROthiazide 12.5 mg oral capsule (6 sources) Thiazide Diuretic Start: 09-08-2017 End: 03-21-2020 take 1 capsule by mouth once daily Hydrochlorothiazide 12.5 MG capsule Discontinued 12.5 mg PO DAILY 60 September 08, 2017 1:00am March 21, 2020 8:16am inFLIXimab-dyyb 100 mg injection (6 sources) Tumor Necrosis Factor Master Start: 09-04-2017 End: 03-21-2020 take 100 mg intravenously every month Infliximab-Dyyb 100 MG/10 ML recon soln Discontinued 100 mg IV EVERY MONTH September 04, 2017 1:00am March 21, 2020 8:16am levETIRAcetam 1000 mg oral tablet (6 sources) Start: 09-08-2017 End: 03-21-2020 take 1 tablet by mouth twice daily Levetiracetam 1,000 MG tablet Discontinued 1000 mg PO TWICE A DAY 120 September 08, 2017 1:00am March 21, 2020 8:16am lisinopril 30 mg oral tablet (20 sources) Angiotensin Converting Enzyme Inhibitor Start: 06-02-2020 End: 08-20-2024 take 1 tablet by mouth once daily Lisinopril 30 mg tablet Discontinued 0 .ROUTE .COMPLEX 90 January 19, 2024 4:49pm May 28, 2024 12:31pm TAKE 1 TABLET BY MOUTH EVERY DAY Start: 05-23-2020 End: 06-02-2020 Lisinopril 20 mg tablet Disc ontinued 30 mg PO DAILY 60 May 23, 2020 2:36pm June 02, 2020 9:15am Start: 05-23-2020 End: 06-02-2020 take 30 mg by mouth once daily Lisinopril Discontinued 30 MG PO DAILY 60 May 23, 2020 2:36pm June 02, 2020 9:15am Start: 04-03-2020 End: 05-23-2020 take 1 tablet by mouth once daily Lisinopril 20 mg tablet Discontinued 20 mg PO DAILY 60 April 03, 2020 1:20pm May 23, 2020 2:36pm Start: 09-08-2017 End: 04-03-2020 take 1 tablet by mouth once daily Lisinopril 10 mg tablet Discontinued 10 mg PO DAILY 90 2020 8:38am April 03, 2020 1:20pm meloxicam 7.5 mg oral tablet (18 sources) Nonsteroidal Anti-inflammatory Drug Start: 11-10-2020 End: 11-10-2020 take 1 tablet by mouth twice daily Meloxicam 7.5 mg tablet Discontinued 7.5 mg PO TWICE A DAY November 10, 2020 12:00am November 10, 2020 8:40am Start: 07-04-2020 End: 10-12-2020 take 1 tablet by mouth twice daily as needed for pain Meloxicam 7.5 mg tablet Discontinued 7.5 mg PO TWICE A DAY as needed for pain 60 September 18, 2020 1:04pm October 12, 2020 9:54am metFORMIN hydrochloride 500 mg oral tablet (12 sources) Biguanide Start: 05-24-2024 End: 09-17-2024 take 1 tablet by mouth twice daily Metformin 500 mg tablet Discontinued 500 mg PO TWICE A DAY 60 May 24, 2024 12:00am September 17, 2024 3:07pm Start: 05-03-2024 End: 05-23-2024 take 1 tablet by mouth twice daily Metformin 750 mg tablet extended release 24 hr Discontinued 750 mg PO TWICE A DAY 180 May 03, 2024 8:28am May 23, 2024 6:57am Start: 10-29-2023 End: 05-03-2024 take 1 tablet by mouth twice daily Metformin 500 mg tablet extended release 24 hr Discontinued 500 mg PO TWICE A DAY 180 February 27, 2024 1:14pm May 03, 2024 8:32am 24 hr metoprolol succinate 25 mg extended release oral tablet (6 sources) beta-Adrenergic Master Start: 06-11-2021 End: 10-29-2023 take 1 tablet by mouth once daily Metoprolol Succinate 25 mg tablet extended release 24 hr Discontinued 25 mg PO DAILY 60 June 11, 2021 12:00am October 29, 2023 8:15am naproxen 500 mg oral tablet (6 sources) Nonsteroidal Anti-inflammatory Drug Start: 07-22-2024 End: 11-01-2024 take 1 tablet by mouth twice daily as needed for pain Naproxen 500 mg tablet Discontinued 500 mg PO TWICE A DAY as needed for pain 60 August 26, 2024 1:00am November 01, 2024 8:12am rosuvastatin calcium 5 mg oral tablet (20 sources) HMG-CoA Reductase Inhibitor Start: 10-07-2019 End: 05-23-2024 take 1 tablet by mouth once daily Rosuvastatin 5 mg tablet Discontinued 0 .ROUTE .COMPLEX 90 November 29, 2022 3:33pm October 29, 2023 8:15am TAKE 1 TABLET BY MOUTH EVERY DAY 1 ml secukinumab 150 mg/ml prefilled syringe (11 sources) Interleukin-17A Antagonist Start: 12-25-2021 End: 09-17-2024 Secukinumab (Cosentyx) 150 mg/mL syringe Discontinued 300 mg SC every 4 weeks December 25, 2021 12:00am September 17, 2024 3:07pm start 4 wks after last weekly dose;inject [id number] doses each in different thigh/upper arm/abdominal areas. last took in March Start: 06-01-2020 End: 06-21-2020 Secukinumab (Cosentyx) 150 m g/mL syringe Discontinued 150 mg SC every 4 weeks June 01, 2020 12:00am June 21, 2020 10:04am start 4 weeks after last weekly dose topiramate 100 mg oral tablet (12 sources) Start: 06-08-2024 End: 08-26-2024 take 1 tablet by mouth twice daily Topiramate 100 mg tablet Discontinued 100 mg PO TWICE A DAY 60 July 22, 2024 10:13am August 26, 2024 5:11pm Start: 05-24-2024 End: 07-22-2024 take 1 tablet by mouth twice daily, then take 2 tablets by mouth twice daily, then take 3 tablets by mouth twice daily, then take 4 tablets by mouth twice daily Topiramate 25 mg tablet Discontinued 25 mg PO DIRECTED 180 May 24, 2024 12:00am July 22, 2024 10:00am take one tablet (25mg) twice daily for one week, then two tablets (50mg) twice daily for one week, then three tablets (75mg) twice daily for one week, then continue with 4 tablet (100mg) twice daily. Problems Active Problems Problem Classification Problem Date Documented Date Episodic/Chronic Cancer; other and unspecified primary (1 source) Malignant neoplasm of left lower limb; Translations: [Malignant neoplasm of left lower limb] Onset: 09-28-2024 Chronic Cardiac dysrhythmias (7 sources) Tachycardia; Translations: [Tachycardia, unspecified] Episodic Chronic obstructive pulmonary disease and bronchiectasis (4 sources) Bronchitis; Translations: [Bronchitis, not specified as acute or chronic] 04-14-2023 Episodic Chronic ulcer of skin (19 sources) Non-pressure chronic ulcer of left heel and midfoot with fat layer exposed; Translations: [Non-pressure chronic ulcer of 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] Onset: 01-06-2025 09-01-2024 Chronic Deficiency and other anemia (6 sources) Anemia; Translations: [Anemia, unspecified] 02-09-2021 Episodic Diabetes mellitus with complications (1 source) Type 2 diabetes mellitus with other specified complication; Translations: [Type 2 diabetes mellitus with other specified complication] Onset: 10-05-2024 Chronic Diabetes mellitus without complication (10 sources) Type 2 diabetes mellitus; Translations: [Type 2 diabetes mellitus without complications] Onset: 05-03-2024 11-01-2024 Chronic Diabetes mellitus without complication (5 sources) Other abnormal glucose; Translations: [Other abnormal glucose] 11-27-2022 Episodic Disorders of lipid metabolism (8 sources) Hyperlipidemia; Translations: [Hyperlipidemia, unspecified] Onset: 05-03-2024 05-28-2024 Chronic Epilepsy; convulsions (15 sources) Epilepsy; Translations: [Other generalized epilepsy and epileptic syndromes, not intractable, without status epilepticus] Onset: 05-24-2024 07-04-2020 Chronic Comment on above: LAST SEIZURE 05/2024 Epilepsy; convulsions (6 sources) Seizure; Translations: [Unspecified convulsions] 11-10-2020 Episodic Essential hypertension (13 sources) Hypertensive disorder; Translations: [Essential (primary) hypertension] Chronic Neoplasms of unspecified nature or uncertain behavior (18 sources) Neoplastic disease; Translations: [Neoplasm of unspecified behavior of bone, soft tissue, and skin] Onset: 01-06-2025 10-01-2024 Episodic Osteoporosis (6 sources) Osteoporosis; Translations: [Age-related osteoporosis without current pathological fracture] 02-09-2021 Chronic Other aftercare (3 sources) Post-discharge follow-up; Translations: [Encounter for follow-up examination after completed treatment for conditions other than malignant neoplasm] 05-28-2024 Episodic Other aftercare (1 source) Encounter for follow-up examination after completed treatment for conditions other than malignant neoplasm; Translations: [Encounter for follow-up examination after completed treatment for conditions other than malignant neoplasm] Onset: 02-04-2025 Episodic Other connective tissue disease (3 sources) Weakness of face muscles; Translations: [Facial weakness] 06-01-2024 Episodic Other ear and sense organ disorders (1 source) Otalgia; Translations: [Otalgia, bilateral] Episodic Other ear and sense organ disorders (6 sources) Impacted cerumen; Translations: [Impacted cerumen, right ear] 02-09-2021 Episodic Other ear and sense organ disorders (1 source) Otalgia, bilateral; Translations: [Otalgia, unspecified] Episodic Other ear and sense organ disorders (5 sources) Pain of ear structure; Translations: [Otalgia, bilateral] 08-08-2021 Episodic Other hematologic conditions (6 sources) Raised cardiac enzyme or marker; Translations: [Other specified abnormalities of plasma proteins] 09-05-2017 Episodic Other inflammatory condition of skin (16 sources) Psoriatic arthritis; Translations: [Arthropathic psoriasis, unspecified] 06-01-2020 Chronic Other inflammatory condition of skin (1 source) Other psoriatic arthropathy; Translations: [Other psoriatic arthropathy] Onset: 04-04-2024 Chronic Other lower respiratory disease (6 sources) Hypoxia; Translations: [Hypoxemia] 05-23-2024 Episodic Other non-traumatic joint disorders (6 sources) Joint pain; Translations: [Pain in unspecified joint] 07-04-2020 Episodic Other non-traumatic joint disorders (6 sources) Shoulder pain; Translations: [Pain in right shoulder] 11-01-2024 Episodic Other nutritional; endocrine; and metabolic disorders (6 sources) Obese class I; Translations: [Obesity, unspecified] 09-04-2017 Chronic Residual codes; unclassified (3 sources) Altered mental status; Translations: [Altered mental status, unspecified] 06-01-2024 Episodic Rheumatoid arthritis and related disease (9 sources) Rheumatoid arthritis; Translations: [Rheumatoid arthritis, unspecified] 09-04-2017 Chronic Spondylosis; intervertebral disc disorders; other back problems (12 sources) Chronic low back pain; Translations: [Chronic low back pain] 07-04-2020 Episodic Superficial injury; contusion (5 sources) Foreign body of foot; Translations: [Superficial foreign body, left foot, initial encounter] Onset: 01-06-2025 12-01-2024 Episodic Syncope (6 sources) Syncope; Translations: [Syncope and collapse] 09-05-2017 Episodic Thyroid disorders (8 sources) Thyroid nodule; Translations: [Nontoxic single thyroid nodule] Onset: 05-24-2024 06-21-2024 Chronic Transient cerebral ischemia (3 sources) Transient cerebral ischemia; Translations: [Transient cerebral ischemic attack, unspecified] 05-23-2024 Chronic Unclassified (3 sources) Wound care center Past or Other Problems Problem Classification Problem Date Documented Date Episodic/Chronic Aspiration pneumonitis; food/vomitus (5 sources) Aspiration pneumonia; Translations: [Pneumonitis due to inhalation of food and vomit] Onset: 05-24-2024 06-01-2024 Episodic Malaise and fatigue (4 sources) Right hemiparesis; Translations: [Weakness] Onset: 05-24-2024 06-01-2024 Episodic Open wounds of extremities (8 sources) Open wound, heel; Translations: [Unspecified open wound, unspecified foot, initial encounter] Onset: 05-24-2024 06-01-2024 Episodic Other and unspecified benign neoplasm (1 source) Benign neoplasm, unspecified site; Translations: [Benign neoplasm, unspecified site] Onset: 10-12-2024 Episodic Other connective tissue disease (2 sources) Facial weakness; Translations: [Facial weakness] Onset: 05-24-2024 Episodic Other lower respiratory disease (1 source) Hypoxemia; Translations: [Hypoxemia] Onset: 05-24-2024 Episodic Other non-traumatic joint disorders (1 source) Pain in right shoulder; Translations: [Pain in right shoulder] Onset: 11-01-2024 Episodic Other non-traumatic joint disorders (1 source) Pain in left shoulder; Translations: [Pain in left shoulder] Onset: 11-01-2024 Episodic Other screening for suspected conditions (not mental disorders or infectious disease) (8 sources) Electrocardiogram abnormal; Translations: [Abnormal electrocardiogram [ECG] [EKG]] Onset: 09-17-2024 09-17-2024 Episodic Residual codes; unclassified (1 source) Procedure and treatment not carried out due to patient leaving prior to being seen by health care provider; Translations: [Procedure and treatment not carried out due to patient leaving prior to being seen by health care provider] Onset: 10-19-2024 Episodic Residual codes; unclassified (1 source) Disorientation, unspecified; Translations: [Disorientation, unspecified] Onset: 06-03-2024 Episodic Residual codes; unclassified (1 source) Altered mental status, unspecified; Translations: [Altered mental status, unspecified] Onset: 05-24-2024 Episodic Viral infection (1 source) Plantar wart; Translations: [Plantar wart] Onset: 04-15-2024 Episodic Results Test Name Value Interpretation Reference Range Facility Neurology Visit Reporton Neurology Visit Report [facility] [address], [address] [place] [address] OFFICE VISIT Date of Service: 01/13/25 MR#: [id number] Acct: [id number] Name: MILIND DAWSON Rep #: [id number] : 1955 Provider: Dr. Paresh cramer MD Age/Sex: 69/F Location: [facility] [place]. Status: Signed [facility] Chief Complaint: Establish Care Details: Interim History: Milind returns for follow-up visit. She has a history of hypertension, obesity, psoriatic arthritis and seizures. In 2018, she had 3 seizures. The first seizure occurred while she was at home. She was found on the floor by family members immediately after she fell. She was found to be lethargic and confused. Shortly before losing consciousness, she noticed some momentary darkening of her vision. She was unconscious for about 1 minute. She otherwise was unaware of any preceding events. She did not have any associated tongue biting or urinary incontinence. No clonic activity was noted. She was taking tramadol at the time this episode occurred. She then had a chemical cardiac stress test later in 2017 and had 2 witnessed seizures following the onset of this test. With these episodes she of momentary loss of consciousness, she exhibited thrashing. She did not have any tongue biting or urinary incontinence. She did not have any chest pain, shortness of breath, numbness, focal weakness, headache, lightheadedness or dizziness with these episodes. She underwent neurological evaluation. These episodes were thought to be epileptic seizures and she was treated with levetiracetam. A 24-hour EEG was normal. A head MRI revealed mild chronic subcortical small vessel ischemic disease however no acute pathology or structural pathology to account for her seizures was noted. She did not have any history of [employer]PER[employer] infection, concussion, significant history or childhood seizures. Levetiracetam was discontinued by her physician after about 1 year of treatment with this medication and she had no further seizures until she had a nocturnal seizure in May 2024 which was witnessed by her . She had postictal confusion and lethargy. Levetiracetam had caused mood side effects. She did not exhibit any limb shaking during the seizure in May 2024. She did not have associated tongue biting or urinary incontinence. EMS reports the patient had decreased responsiveness and right-sided facial droop. She was not sleep deprived and did not have a febrile illness prior to her seizure in May 2024. She was hospitalized and topiramate was initiated. She is having labile mood and crying episodes; these may be side effects to topiramate. An EEG in May 2024 was normal. A head MRI in May 2024 revealed mild age related diffuse cerebral atrophy, and mild to moderate chronic small vessel ischemic disease. She has had no further seizures since May 2024. She is prescribed Cosentyx but is not taking this medication presently. She has had increased gait difficulties since 2018 and ambulates with a walker. Her gait difficulty appears to be due to her joint pain which has affected all joints in her lower extremities but has been prominent in the ankles. She also has a history of chronic neck pain and low back pain. She has had prior physical therapy. She has seen a pain management physician in the past and had spinal axis injections which were of only modest benefit. Meloxicam 7.5mg BID as needed was not of benefit for her musculoskeletal pain. Flurbiprofen was of benefit for her pain. Naproxen is not of benefit. She has a thyroid nodule for which she is pursuing evaluation. She stated that a repeat ultrasound is scheduled for 2024. She had a left foot callus and plantar warts removed in 2023 and an open left foot wound; this was surgically closed in September 2024. Physical Exam: Neuro: The patient is awake and alert and responds appropriately; speech is fluent Neck: No bruits Heart: Regular rate and rhythm Supplemental Info EKG (09/04/2017): Sinus tachycardia Biatrial enlargement Nonspecific ST and T wave abnormality Abnormal ECG Neck MRA (09/05/2017): Normal antegrade flow within the bilateral vertebral arteries without a hemodynamically significant stenosis. 50-69% stenosis on the right. Correlation with ultrasonography can be obtained. Head MRA (09/05/2017): Normal MRA of the head Echocardiogram (09/05/2017): The estimated ejection fraction is 65%. Normal diastology for age. Bubble contrast study negative for right to left interatrial shunt. Trivial mitral valve insufficiency. Unable to estimate RV systolic pressure/pulmonary artery pressure due to technically difficult study. There is no comparison study available. Brain MRI (09/05/2017): IMPRESSION: No acute intracranial abnormality. Acute left maxillary sinus disease. Chest CTA (09/05/2017): IMPRESSION: No evidence of pulmo (more content not included)... Normal [facility] Internal Medicine Office Vis ravinder 11-01-2024 Internal Medicine Office Visit [facility] [address] [address] [place] [address] OFFICE VISIT Date of Service: 11/01/24 MR#: [id number] Acct: [id number] Name: MILIND DAWSON Rep #: [id number] : 1955 Provider: Dr. Danny gabriel MD Age/Sex: 69/F Location: [facility] [place].[facility] Status: Signed Intake Vital Signs 05/03/24 08:13 10/05/24 20:35 11/01/24 08:13 Height 5 ft 3 in 5 ft 1 in 5 ft 1 in Weight: 156 lb BMI 29.5 BP 138/72 H Blood Pressure Location Rt brachial Position Sitting Respiration 18 Pulse 113 H Pulse Source Monitor Temp 98.2 F Temp Source Temporal Pulse Oximetry (%) 98 Oxygen Delivery Method room air Intake Visit Reasons: 6 M FU Chief Complaint: 6 M FU Is patient in pain?: Yes (10 all over ) Allergies tramadol Allergy (Severe, Verified 11/01/24 08:12) seizures adalimumab (From Humira) Allergy (Unknown, Verified 11/01/24 08:12) unknown apremilast (From Otezla) Allergy (Unknown, Verified 11/01/24 08:12) unknown infliximab (From Remicade) Allergy (Unknown, Verified 11/01/24 08:12) unknown infliximab-dyyb (From Inflectra) Adverse Reaction (Unknown, Verified 11/01/24 08:12) unknown leflunomide (From Arava) Adverse Reaction (Verified 11/01/24 08:12) Other methotrexate (Methotrexate) Adverse Reaction (Verified 11/01/24 08:12) Other sulfasalazine (Sulfasalazine) Adverse Reaction (Verified 11/01/24 08:12) Other Medications ???Medication ???Instructions ???Recorded ???Confirmed ???Type acetaminophen 325 mg tablet 650 mg (2 x 325 mg) PO Q4H PRN PRN 09/08/17 11/01/24 Rx Headache/Temp>99F lisinopril 30 mg tablet See Rx Instructions .Route 5 11/01/24 Rx .COMPLEX blood pressure #90 tabs topiramate 100 mg tablet 100 mg PO BID #60 tabs 08/26/24 Rx prednisone 5 mg tablet 5 mg PO DAILY 09/30/24 11/01/24 Hi story acetaminophen 650 mg 650 mg PO Q8H 10 days #30 tabs 11/01/24 Rx tablet,extended release (Tylenol 8 Hour) Have you fallen in the past year?: No PFSH Medical History (Updated 11/01/24 @ 12:[address] Danny Herrera MD) Bilateral shoulder pain Post-menopausal History of steroid therapy Diabetes Walker as ambulation aid Non-smoker History of stress test History of echocardiogram Abnormal EKG Preoperative evaluation to rule out surgical contraindication Multinodular thyroid Thyroid nodule Open wound of heel Seizure disorder Hyperlipidemia Type 2 diabetes mellitus Blood glucose elevated Preventative health care Acute pain of both ears Tachycardia Impacted cerumen, right ear Health care maintenance Anemia Osteoporosis Psoriatic arthritis Arthritis History of seizures Hypertension Hypertension Surgical History S/P foot surgery History of cataract surgery Family History Father Myocardial infarction Social History Smoking Status: Never smoker alcohol intake: never substance use type: does not use what type of physical activity do you participate in: none HPI HPI Chief Complaint: 6 M FU Details: MILIND DAWSON, is a 69 F who presents to the office today for follow-up and for preventative. Had surgery since her last visit. Surgery was uneventful and she states that she is following up closely with podiatry at the wound center. Said to be healing well to the best of her knowledge. No new concerns in that regard. Chronic history of psoriatic arthritis. Most recently, had been on Cosentyx and last took this a few months ago. She believes that it caused a break through seizure and is not willing to go back to rheumatology or be on any medication. She reports ongoing pain in her joints and most concerning is bilateral shoulder pain. Unable to reach/move her shoulder as she had previously done. Has not had any imaging. History of hypertension, blood pressure today is at 138/72 mmHg. Typically elevated readings during the visit. Currently on lisinopril which she states that she is taking. History of diabetes, last A1c was at 7.2. She states that she was told by podiatry that she does not have diabetes. She is currently not taking metformin and states that she is taking some natural supplements. Does not routinely check her blood sugars at home. ROS Const Constitutional: No body ache, chills, excessive sweating, fatigue, fever(s), frequent falls, headache(s), snoring, weight change, sleep problems, abnormal sleep pattern or change in appetite Eyes Eyes: No blurry vision, change in vision, floaters, visual disturbances, eye pain or Light sensitivity ENT ENT: No abnormal hearing, ear or mastoid pain, tinnitus, balance problems, nosebleed/epistaxis, nasal c (more content not included)... Normal [facility] Culture, Anaerobic Any Sourc cha 10-30-2024 CUAN LEFT HEEL Studies have confirmed that Anaerobic Gram Positive Cocci are routinely SUSCEPTABLE to Penicillin and generally susceptible to Beta-lactams and Beta-lactamase inhibitors, Cephalosporins, Carbapenems and Metronidazole. They are showing increased RESISTANCE to Clindamycin Anaerobic cocci Normal [facility] Comment on above: Performed By: #### L 300.4310, L100.0100, L500.2500, L300.3900, L500.4100 #### [facility] [address] [place], [place], [id number] Wound Cultureon 10-30-2024 LEFT HEEL Copy of report sent to Infection Control Printer [id number] 10/30/24 5920 BLUCAS. Morganella morganii sp morgani Amount Growth 2+ Staphylococcus epidermidis Staphylococcus epidermidis MRSA Amount Growth 1+ Meth. resistant Staph. aureus Morganella morganii sp morgani: REACTION Ampicillin Islt LUCY >=32 R Ampicillin+Sulbac Islt LUCY 16 Ciprofloxacin Islt LUCY <=0.06 S Gentamicin Islt LUCY <=1 levoFLOXacin Islt LUCY <=0.12 S Meropenem Islt LUCY <=0.25 S Pip+Tazo Islt LUCY <=4 S TMP SMX Islt LUCY <=20 S Staphylococcus epidermidis: REACTION cefOXitin Susc Islt POS Doxycycline Islt LUCY 8 I Clindamycin Islt LUCY R Clindamycin.induced Susc Islt Erythromycin Islt LUCY >=8 R Gentamicin Islt LUCY <=0.5 S Linezolid Islt LUCY 1 S Oxacillin Susc Islt >=4 R Tetracycline Islt LUCY >=16 R TMP SMX Islt LUCY 80 R Vancomycin Islt LUCY 1 S Meth. resistant Staph. aureus: REACTION cefOXitin Susc Islt POS Doxycycline Islt LUCY <=0.5 S Clindamycin Islt LUCY 0.25 S Clindamycin.induced Susc Islt Erythromycin Islt LUCY >=8 R Gentamicin Islt LUCY <=0.5 S Linezolid Islt LUCY 2 S Moxifloxacin Islt LUCY 1 S Oxacillin Susc Islt >=4 R Tetracycline Islt LUCY <=1 S TMP SMX Islt LUCY >=320 R Vancomycin Islt LUCY <=0.5 S Normal [facility] Comment on above: Performed By: #### L 300.4310, L100.0100, L500.2500, L300.3900, L500.4100 #### [facility] [address] [place], [address] Gram Stainon 10-28-2024 GS LEFT HEEL Gram Stain 2+ Gram positive cocci Rare Gram positive rods Rare White Blood Cells No Epithelial cells Normal [facility] Comment on above: Performed By: #### L 300.4310, L100.0100, L500.2500, L300.3900, L500.4100 #### [facility] [address] [place], [address] Anaerobic cultureOrdered By: Thompson Wright on 10-27-2024 Bacteria identified Anaer cx Nom (Unsp spec) Anaerobic cocci Abnormal [facility] Bacteria identified Anaer cx Nom (Unsp spec)Ordered By: Thompson Wright on 10-27-2024 Anaerobic Culture Anaerobic cocci Abnormal [facility] Gram stainOrdered By: Jh Wright on 10-27-2024 Microscopic observation Gram stain Nom (Unsp spec) [facility] Routine wound cultureOrdered By: Thompson Wright on 10-27-2024 Microbial culture, routine Morganella morganii sp morgani Abnormal [facility] Microbial culture, routine Staphylococcus epidermidis Abnormal [facility] Microbial culture, routine Meth. resistant Staph. aureus Abnormal [facility] Wound Culture Morganella morganii sp morgani Abnormal [facility] Wound Culture Staphylococcus epidermidis Abnormal [facility] Wound Culture Meth. resistant Stap h. aureus Abnormal [facility] Bedside Glucoseon 10-01-2024 FINGERSTICK GLU 153 mg/dL High 74-106 [facility] Comment on above: Result Comment: MORGAN BROWNLEE OF PATIENT CARE PER NURSING PROTOCOL Performed By: #### L 300.4310, L100.0100, L500.2500, L300.3900, L500.4100 #### [facility] [address] [place], [place], [id number] Frozen Section (charge)on Frozen Section (charge) ------ ---- Patient Age/Sex Location Account Attending Physician ---- MILIND DAWSON 69/F [facility] [place] [id number] Dr. Thompson Wright DPM ---- Specimen: [id number] Received: 10/01/24 Status: ZOIE Yusuf Num: [id number] Spec Type: Lesion Subm Dr: Dr. Thompson Wright DPM HEADER OPERATION: Excision of soft tissue mass of left foot with advancement PRE-OP DIAGNOSIS: Left foot neoplasm of unknown origin TISSUE SUBMITTED: Left foot neoplasm, long stitch -12o'clock, short stitch - 3o'clock ---- FROZEN SECTION DIAGNOSIS Left foot lesion, excisional biopsy: Verrucous keratosis, negative for carcinoma (bilingual call center representative sections find pending permanent sections). [email or web address].mr 10/01/2024 MICROSCOPIC DIAGNOSIS Left foot lesion, excisional biopsy: Verrucous keratosis. Negative for malignancy. See comment. BASHIR.mr 10/04/2024 COMMENT Focal ulceration with associated acute inflammation is noted. Bacterial colonization is also noted in the superficial epithelial layers. MICROSCOPIC DESCRIPTION Slides are reviewed. GROSS DESCRIPTION Received fresh for frozen section diagnosis labeled with the patient's name is a specimen designated Left foot neoplasm. The specimen consists of a piece of skin with underlying tissue measuring 4 x 1.5cm and up to 1.5cm in thickness. The skin surface shows verrucous lesions. The specimen is oriented as follows: long stitch- 12o'clock, short stitch- 3 o'clock. The specimen is inked as follows: 12o'clock-black, 6o'clock -blue, 3o'clock tip- yellow and 9o'clock tip- green. The specimen is serially sectioned and submitted entirely in seven cassettes as follows: 1- 3 6o'clockmaragins, 2 3- bilingual call center representative sections from the central portion of the specimen (cassettes 1-3 are submitted for frozen section diagnosis), 4-7- rest of the specimen. . 10/01/2024 TC:5 [facility]:[id number] 2 ---- Patient Age/Sex Location Account Attending Physician ---- MILIND DAWSON 69/F [facility] [place] [id number] Dr. Thompson Wright DPM ---- Signed (signature on file) Dr. Dedrick Huggins MD 10/04/24 1244 ---- Normal [facility] Comment on above: Performed By: #### P FSC ####[facility] [id number] [place], [place], [address] Gl[facility] at [facility] deOrdered By: Thompson Wright on 10-01-2024 Bedside Glucose ([facility] [place] [place] Panel) 153 mg/dL [address] [facility] Comment on above: MANAGEMENT OF PATIEN T CARE PER NURSING PROTOCOL Glucose [Mass/Vol] 153 mg/dL High 74-106 [facility] Comment on above: MANAGEMENT OF PATIEN T CARE PER NURSING PROTOCOL MR/POSTOP.ANEon 10-01-2024 MR/POSTOP.[facility] Medical Records Department [address] [place] [address] Anesthesia Postop Eval I 10/01/24 1253 MR#: [id number] Acct: [id number] Name: MILIND DAWSON Rep #: [id number] : 1955 69 From: Kailash Shore CRNA PCP: Dr. Danny Herrera MD Status:REG [facility] Y Race: C Location: [place] [address] Anesthesia: Postop Eval I Current Vital Signs Temperature: 98.4 F Pulse Rate: 90 Blood Pressure: 141/94 Respiratory Rate: 18 Pulse Ox: 98 Oxygen Delivery Method: Room Air Assessment Airway patent: Yes Spontaneous unlabored respirations: Yes Mental status: Awake and Calm nausea: No Vomiting: No Anesthesia Complication: No Fluid Hydration Crystalloid volume administer (ml): 700 Total IV fluid infused: 700 Progress Note Anesthesia document: Postop Eval 1 completed: Yes 10/01/24 1253 Date Kailash Shore AUTHORIZATION REP Cosigner Signature: Date CC: Signed Normal [facility] Operative Reporton [address] [facility] Medical Records Department [address] [place] [address] Operative Report 10/01/24 1128 MR#: [id number] Acct: [id number] Name: MILIND DAWSON Rep #: [id number] : 1955 69 From: Thompson Wright DPM PCP: Dr. Danny Herrera MD Status:[facility] Location: [place] [address] Problems Associated Problem List Diagnoses (1) Neoplasm of unspecified behavior of bone, soft tissue, and skin: (2) Non-pressure chronic ulcer of left heel and midfoot with fat layer exposed: Operative Report (Standard) Operative Information Date of Procedure: 10/01/24 Pre-Operative Diagnosis: 1. Benign skin lesion of unknown origin, left foot 2. Full-thickness wound down to subcutaneous tissue, left foot Post-Operative Diagnosis: Same as preoperative diagnosis Surgery/Procedure Performed: Procedure #1: Excision of soft tissue mass, left foot Procedure #2: Advancement flap closure, left foot medicare compliance auditor: Yes Independent Trader: Elkin Vasquez PGY1 Tasks completed by farm assistant: Opening closing and Dissecting tissue Type of Anesthesia: Epidural and Local RN Documented Start/Stop Times: Operation Date: 10/01/24 11:30 Case Time Into Pre-Op 10/01/24 09:56 Anesthesia Start 10/01/24 11:35 Into Room 10/01/24 11:35 Procedure Start 10/01/24 11:52 Procedure End 10/01/24 12:42 Anesthesia End 10/01/24 12:47 Out of Room 10/01/24 12:47 Into Recovery 10/01/24 12:52 Procedure Start Time: 11:52 Procedure Stop Time: 12:42 Select all DRAINS/GRAFTS/IMPLANTS that apply: None Special Medications: Per anesthesia Estimated Blood Loss: 40 mL Fluids Replaced: For anesthesia Specimen collected: Yes Description of specimen(s) removed: Frozen section: Plantar verruca Description of surgery: Indications For Operation: Mrs. Dawson is a 69-year-old female who was admitted to [facility] for left foot surgery secondary to benign neoplasm of unknown origin. Patient is well-known to me at the wound care center has been followed up with a full-thickness wound and soft tissue mass to the left heel. Due to the concern for a neoplasm the patient underwent an MRI that suggested concern for neoplasm but no involvement of bone. Due to the increased pain and size of the mass it was deemed necessary at this time to take the patient the operating room to perform the above procedure. Chart review consent signed. Due to increase in soft tissue mass of the left foot as well as pain with weightbearing, it is deemed necessary at this time to take the patient the operating room performed above procedure to help relieve her constant pain and see whether or not the patient is dealing with a neoplasm versus benign neoplasm. The nature of the problem, anticipated procedures, postop recovery/convalences and risk/complications include but not limited to infection, wound healing complications, digital amputation, hypertrophic scarring, numbness, tingling, chronic pain, CRPS, over and under correction, recurrence of deformity, DVT and or PE and the need for further surgery have been discussed in great detail with the patient. All questions have been answered to the patient's satisfaction. There are no guarantees given as to the outcome of the procedure. Description of Procedure: Under mild sedation, the patient was brought into the operating room and placed on the operating table in supine position. Once the patient was under spinal anesthesia, the left lower extremity was blocked using approximately 20 cc 0.5% Marcaine plain. Next, a well-padded calf tourniquet was applied to the left lower extremity. Next, the left lower extremity was prepped and draped in normal aseptic manner. Next, a timeout was then undertaken verifying the correct patient, extremity, visibility of preoperative markings, availability of the equipment. Next, attention was directed to the left lower extremity. Using a foreign Esmarch, left lower extremity was exsanguinated and elevated to 60 degrees for 1 minute. Procedure #1: Excision of soft tissue mass, left foot Next, attention was directed to the left lower extremity medial heel where there is evidence of a large walnut sized soft tissue mass. Using a sterile skin marker the incision was marked out circumferentially around the soft tissue mass. Next, using a #15 blade a full-thickness incision down to subcutaneous tissue was performed without incident. Littler scissors were used to continue sharp and blunt dissection down to level of subcutaneous tissue removing the soft tissue mass in total. A 12:00 and 3:00 large and small 2-0 silk were applied and the soft tissue mass was sent off to pathology. At approximately 20 minutes after removal of the soft tissue mass, pathology had diagnosed with a aggressive form of plantar verruca. There is no concern for neoplasm at this time. The area was flushed with (more content not included)... Normal [facility] MR/PAT.ANEon 09-30-2024 MR/PAT.[facility] Medical Records Department [address] [place] [address] PAT - Anesthesia 09/30/24 0852 MR#: [id number] Acct: [id number] Name: MILIND DAWSON Rep #: [id number] : 1955 69 From: Jeff Hall MD PCP: Dr. Danny Herrera MD Status:PRE [facility] [place] Y Race: C Location: [facility] [place] Pre-Assessment Diagnosis/Proposed Procedure Planned Operative Procedure(s): (L) Excision of soft tissue mass of the left foot with advancement flap closure. 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 When Was Last Pacemaker Check QUESTION #4 FULL TEXT: You/Your Family Experience fever (hyperthermia) with Anesthesia Last Oral Intake Last Oral intake: Last Oral Intake NPO since Meds taken in AM with sips of water? Meds patient instructed to take am of surgery PONV PONV - block piler: PONV - block piler Female Yes 09/30/24 08:27 HX of Motion Sickness No 09/30/24 08:27 HX of N/V After Surgery No 09/30/24 08:27 Non-Smoker Yes 09/30/24 08:27 Duration of Surgery greater No 09/30/24 08:27 than 60 minutes Number of Risk Factors 2 09/30/24 08:27 PONV Score Moderate Risk 09/30/24 08:27 Height Weight Height Weight: Anesthesia: Height Weight Height 5 ft 1 in 09/17/24 14:11 Respiratory Assessment Respiratory Assessment - block piler: Respiratory Tract Infection Hx - block piler Hx Respiratory Tract Infection No 09/30/24 08:27 STOP Sleep Apnea STOP Sleep Apnea - block piler: STOP Sleep Apnea - block piler Hx Hypertension Yes: CONTROLLED ON MED 09/30/24 08:27 Hx Sleep Apnea No 09/30/24 08:27 CPAP BIPAP Do you snore loudly (louder No 09/30/24 08:27 than talking or can be heard Do you often feel tired/ No 09/30/24 08:27 fatigued/ sleepy during daytime? Has anyone observed you stop No 09/30/24 08:27 breathing during sleep? STOP Results Negative 09/30/24 08:27 QUESTION #5 FULL TEXT : Do you snore loudly (louder than talking or can be heard through closed doors)? 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 Specify any problems Hx of Preganancy in last 3 No 09/30/24 08:27 Months Nurse Filling Out Transfusion VCHRISTIN 09/30/24 08:27 Questions: Date: 09/30/24 09/30/24 08:27 Time: 0809/30/24 08:27 Patient unable to answer at this time (ie. confused, unrespo /Reproduction History /Reproductive History - block piler: /Reproductive Hx- block piler Hx Now Gestational Age (in weeks): EDC: Hx Hx Para Hx Section SAB Active Medications Active Medications: Current Medications Generic Name Dose Route Start Last Admin Trade Name Freq PRN Reason Stop Dose Admin Cefazolin Sodium 2 gm/ N/A 20 mls @ 400 mls/hr 10/01/24 11:30 IV 10/01/24 11:32 PREOP ONE [facility] Medical History (Updated 09/30/24 @ 08:27 by Luz Garcia) Post-menopausal History of steroid therapy Diabetes Walker as ambulation aid Non-smoker History of stress test History of echocardiogram Abnormal EKG Preoperative evaluation to rule out surgical contraindication Multinodular thyroid Thyroid nodule Open wound of heel Seizure disorder Hyperlipidemia Type 2 diabetes mellitus Blood glucose elevated Preventative health care Acute pain of both ears Tachycardia Impacted cerumen, right ear Health care maintenance Anemia Osteoporosis Psoriatic arthritis Arthritis History of (more content not included)... Normal [facility] Topiramate, Serumon 09-27-19 TOPIRAMATE 14.1 ug/mL Normal 2.0-25.0 [facility] Comment on above: Result Comment: Dete ction Limit = 1.5 Performed at: - [facility] [address] [id number] [place] Cutter: Gino Serrano MD, Phone: [phone] Performed By: #### L 0309.1400 #### [facility] [address] [place], [place], [address] Serum or plasma topiramate m easurement (mass/volume)Ordered By: Paresh Arellano on 09-23-2024 Topiramate [Mass/Vol] 14.1 ug/mL 2.0-25.0 [facility] Comment on above: Detection Limit = 1. 5Performed at: [facility] [id number] Director: Gino Serrano MD, Phone: [phone] Topiramate [Mass/Vol]Ordered By: Paresh Arellano on 09-23-2024 Topiramate Level 14.1 ug/mL 2.0-25.0 [facility] Comment on above: Detection Limit = 1. 5Performed at: [facility] [id number] Director: Gino Serrano MD, Phone: [phone] Hemoglobin A1con 09-19-2024 HbA1c (Bld) [Mass fraction] 7.3 % High 3.8-5.6 [facility] Comment on above: Result Comment: Norm al < 5.7 % Prediabetic 5.7 - 6.4 % Diabetic >or= 6.5 % Please note range changes. Performed By: #### L 501.9985, L100.0100, L500.4050, L506.1000 ####[facility] [address] [place], [address] [id number] DOrdered By: Rach Herrera on 09-17-2024 Vitamin D 25-Hydroxy 28.1 ng/mL [facility] Comment on above: Vitamin D 25(OH) Sta tus Range Deficiency <20 ng/mL (50nmol/L) Insufficiency 20 - 30 ng/mL (50 - 75 nmol/L) Sufficiency 30 - 100 ng/mL (75 - 250 nmol/L) Toxicity >100 ng/mL (>250 nmol/L) Absolute lymphocyte countOrd ered By: Danny Herrera on 09-17-2024 Lymphocytes Auto (Unsp spec) [#/Vol] 1.79 10*3/uL 0.83-4.51 [facility] Absolute neutrophil countOrd ered By: Danny Herrera on 09-17-2024 Neutrophils (Bld) [#/Vol] 6.2 10*3/uL 2.0-7.7 [facility] Albumin to globulin ratioOrd ered By: Danny Herrera on 09-17-2024 Albumin/Globulin [Mass ratio] 0.7 {ratio} Low 0.9-2.4 [facility] Automated lymphocyte count a s percentage of total leukocytesOrdered By: Danny Herrera on 09-17-2024 Lymphocytes/100 WBC Auto (Unsp spec) 19.4 % 19-41 [facility] Basophil percentageOrdered B y: Danny Herrera on 09-17-2024 Basophils/100 WBC (Bld) 0.3 % 0-[address] [facility] Bilirubin, totalOrdered By: Danny Herrera on 09-17-2024 Bilirubin [Mass/Vol] 0.30 mg/dL 0.20-1.00 [facility] Comment on above: For patients on eltr ombopag therapy, use of Dimension [place] TBIL is not recommended. Blood urea nitrogen (BUN)/cr eatinine ratioOrdered By: Danny Herrera on 09-17-2024 Urea nitrogen/Creatinine [Mass ratio] 37.2 mg/mg High 10-20 [facility] CBC W/Diff, Automatedon Absolute Lymph 1.79 X10 3/uL Normal 0.83-4.51 [facility] Comment on above: Performed By: #### L 501.9985, L100.0100, L500.4050, L506.1000 #### [facility] [address] [place], [address] Absolute Neut 6.2 X10 3/uL Normal 2.0-7.7 [facility] Comment on above: Performed By: #### L 501.9985, L100.0100, L500.4050, L506.1000 #### [facility] [address] [place], [address] Basophils/100 WBC (Bld) 0.3 % Normal 0-[address] [facility] Comment on above: Performed By: #### L 501.9985, L100.0100, L500.4050, L506.1000 #### [facility] [address] [place], [address] Eosinophils/100 WBC (Bld) 5.0 % Normal 0-5 [facility] Comment on above: Performed By: #### L 501.9985, L100.0100, L500.4050, L506.1000 #### [facility] [address] [place], [address] Erythrocyte distribution width (RBC) [Ratio] 14.6 % Normal 11.6-14.6 [facility] Comment on above: Performed By: #### L 501.9985, L100.0100, L500.4050, L506.1000 #### [facility] [address] [place], [address] Hematocrit (Bld) [Volume fraction] 38.6 % Normal 37-47 [facility] Comment on above: Performed By: #### L 501.9985, L100.0100, L500.4050, L506.1000 #### [facility] [address] [place], [address] Hemoglobin (Bld) [Mass/Vol] 11.6 g/dL Low 12.0-15.0 [facility] Comment on above: Performed By: #### L 501.9985, L100.0100, L500.4050, L506.1000 #### [facility] [address] [place], [address] IG% 0.300 Normal 0.0-0.9 [facility] Comment on above: Result Comment: IG% - Immature Granulocytes (promyelocytes, myelocytes and metamyelocytes) > 1% indicates that a LEFT SHIFT is Present. Performed By: #### L 501.9985, L100.0100, L500.4050, L506.1000 #### [facility] [address] [place], [address] Lymphocytes/100 WBC (Bld) 19.4 % Normal 19-41 [facility] Comment on above: Performed By: #### L 501.9985, L100.0100, L500.4050, L506.1000 #### [facility] [address] [place], [address] MCH (RBC) [Entitic mass] 25.7 pg Low 27.0-32.0 [facility] Comment on above: Performed By: #### L 501.9985, L100.0100, L500.4050, L506.1000 #### [facility] [address] [place], [address] MCHC (RBC) [Mass/Vol] 30.1 g/dL Low 32-36 [facility] Comment on above: Performed By: #### L 501.9985, L100.0100, L500.4050, L506.1000 #### [facility] [address] [place], [address] MCV (RBC) [Entitic vol] 85.6 fL Normal 81-[address] [facility] Comment on above: Performed By: #### L 501.9985, L100.0100, L500.4050, L506.1000 #### [facility] [address] [place], [address] Monocytes/100 WBC (Bld) 7.4 % Normal 0-[address] [facility] Comment on above: Performed By: #### L 501.9985, L100.0100, L500.4050, L506.1000 #### [facility] [address] [place], [address] Neutrophils/100 WBC (Bld) 67.6 % Normal 47-70 [facility] Comment on above: Performed By: #### L 501.9985, L100.0100, L500.4050, L506.1000 #### [facility] [address] [place], [address] Nucleated RBC (Bld) [#/Vol] 0 10*3/uL Normal 0-5 [facility] Comment on above: Performed By: #### L 501.9985, L100.0100, L500.4050, L506.1000 #### [facility] [address] [place], [address] Platelet mean volume (Bld) [Entitic vol] 10.5 fL Normal 6.2-12.0 [facility] Comment on above: Performed By: #### L 501.9985, L100.0100, L500.4050, L506.1000 #### [facility] [address] [place], [address] Platelets (Bld) [#/Vol] 470 10*3/uL High 150-450 [facility] Comment on above: Performed By: #### L 501.9985, L100.0100, L500.4050, L506.1000 #### [facility] [address] [place], [address] RBC (Bld) [#/Vol] 4.51 10*6/uL Normal 4.2-5.4 [facility] Comment on above: Performed By: #### L 501.9985, L100.0100, L500.4050, L506.1000 #### [facility] [address] [place], [address] RDW SD 45.7 fl High 35.1-43.9 [facility] Comment on above: Performed By: #### L 501.9985, L100.0100, L500.4050, L506.1000 #### [facility] [address] [place], [address] WBC (Bld) [#/Vol] 9.2 10*3/uL Normal 4.4-11.0 [facility] Comment on above: Performed By: #### L 501.9985, L100.0100, L500.4050, L506.1000 #### [facility] [address] [place], [address] Carbon dioxide measurementOr dered By: Danny Herrera on 09-17-2024 CO2 [Moles/Vol] 22.0 mmol/L 21.0-32.0 [facility] Chloride measurementOrdered By: Danny Herrera on 09-17-2024 Chloride [Moles/Vol] 111 mmol/L High 98-107 [facility] Comprehensive Metabolic Prof ilon 09-17-2024 Albumin [Mass/Vol] 3.4 g/dL Normal 3.2-5.0 [facility] Comment on above: Performed By: #### L 501.9985, L100.0100, L500.4050, L506.1000 ####[facility] [address] [place], [address] Albumin/Globulin [Mass ratio] 0.7 {ratio} Low 0.9-2.4 [facility] Comment on above: Performed By: #### L 501.9985, L100.0100, L500.4050, L506.1000 ####[facility] [address] [place], [address] ALK P 109 U/L Normal 45-117 [facility] Comment on above: Performed By: #### L 501.9985, L100.0100, L500.4050, L506.1000 ####[facility] [address] [place], [address] ALT [Catalytic activity/Vol] 12 U/L Low 13-56 [facility] Comment on above: Performed By: #### L 501.9985, L100.0100, L500.4050, L506.1000 ####[facility] [address] [place], [address] AST [Catalytic activity/Vol] 7 U/L Low 15-37 [facility] Comment on above: Performed By: #### L 501.9985, L100.0100, L500.4050, L506.1000 ####[facility] [address] [place], [address] Bilirubin [Mass/Vol] 0.30 mg/dL Normal 0.20-1.00 [facility] Comment on above: Result Comment: For patients on eltrombopag therapy, use of Dimension [place] TBIL is not recommended. Performed By: #### L 501.9985, L100.0100, L500.4050, L506.1000 ####[facility] [address] [place], [address] BUN/CRE 37.2 RATIO High 10-20 [facility] Comment on above: Performed By: #### L 501.9985, L100.0100, L500.4050, L506.1000 ####[facility] [address] [place], [address] CA,Total 10.2 mg/dL High 8.5-10.1 [facility] Comment on above: Performed By: #### L 501.9985, L100.0100, L500.4050, L506.1000 ####[facility] [address] [place], [address] Chloride [Moles/Vol] 111 mmol/L High 98-107 [facility] Comment on above: Performed By: #### L 501.9985, L100.0100, L500.4050, L506.1000 ####[facility] [address] [place], [address] CO2 [Moles/Vol] 22.0 mmol/L Normal 21.0-32.0 [facility] Comment on above: Performed By: #### L 501.9985, L100.0100, L500.4050, L506.1000 ####[facility] [address] [place], [address] Creatinine [Mass/Vol] 0.83 mg/dL Normal 0.55-1.02 [facility] Comment on above: Result Comment: The validity of the calculated GFR GFRAA in patients over 70 years has not been determined. Clinical correlation is essential. Performed By: #### L 501.9985, L100.0100, L500.4050, L506.1000 ####[facility] [address] [place], [address] EST GFR - AA 88 mL/min Normal >60 [facility] Comment on above: Result Comment: Afri can Swedish GFR Calc Performed By: #### L 501.9985, L100.0100, L500.4050, L506.1000 ####[facility] [address] [place], [address] GAP 10 Normal 5-15 [facility] Comment on above: Performed By: #### L 501.9985, L100.0100, L500.4050, L506.1000 ####[facility] [address] [place], [address] GFR/1.73 sq M.predicted among non-blacks MDRD (S/P/Bld) [Vol rate/Area] 72 mL/min/{1.73_m2} Normal >60 [facility] Comment on above: Result Comment: Non- GFR Calc Performed By: #### L 501.9985, L100.0100, L500.4050, L506.1000 ####[facility] [address] [place], [address] Globulin (S) [Mass/Vol] 4.8 g/dL High 2.2-4.[address] [facility] Comment on above: Performed By: #### L 501.9985, L100.0100, L500.4050, L506.1000 ####[facility] [address] [place], [address] Glucose [Mass/Vol] 189 mg/dL High 74-106 [facility] Comment on above: Result Comment: Fast ing Glucose result greater than or equal to 126 mg/dL suggests DIABETES MELLITUS per A.D.A. criteria. Performed By: #### L 501.9985, L100.0100, L500.4050, L506.1000 ####[facility] [address] [place], [address] Potassium [Moles/Vol] 4.5 mmol/L Normal 3.5-5.1 [facility] Comment on above: Performed By: #### L 501.9985, L100.0100, L500.4050, L506.1000 ####[facility] [address] [place], [address] Sodium [Moles/Vol] 143 mmol/L Normal 136-145 [facility] Comment on above: Performed By: #### L 501.9985, L100.0100, L500.4050, L506.1000 ####[facility] [address] [place], [address] T PROT 8.2 g/dL Normal 6.4-8.2 [facility] Comment on above: Performed By: #### L 501.9985, L100.0100, L500.4050, L506.1000 ####[facility] [address] [place], [address] Urea nitrogen [Mass/Vol] 31 mg/dL High 7-18 [facility] Comment on above: Performed By: #### L 501.9985, L100.0100, L500.4050, L506.1000 ####[facility] [address] [place], [address] Eosinophil percentageOrdered By: Danny Herrera on 09-17-2024 Eosinophils/100 WBC (Bld) 5.0 % 0-5 [facility] Erythrocyte distribution wid th ratioOrdered By: sloane Herrera on 09-17-2024 Erythrocyte distribution width (RBC) [Ratio] 14.6 % 11.6-14.6 [facility] Erythrocyte distribution wid th standard deviationOrdered By: orinelkhartjorge Herrera on 09-17-2024 Erythrocyte distribution width (RBC) [Entitic vol] 45.7 fL High 35.1-43.9 [facility] Erythrocyte distribution width (RBC) [Ratio] 45.7 fl High 35.1-43.9 [facility] Estimated glomerular filtrat ion rate (GFR) AmericanOrdered By: Danny Herrera on 09-17-2024 Estimated GFR (MDRD) Amer 88 mL/min >60 [facility] Comment on above: GFR Calc Glomerular filtration rate ( GFR) estimationOrdered By: Danny Herrera on 09-17-2024 Estimated GFR (MDRD) Non-Af Amer 72 mL/min >60 [facility] Comment on above: Non- GFR Calc GFR/1.73 sq M.predicted among non-blacks MDRD (S/P/Bld) [Vol rate/Area] 72 mL/min/{1.73_m2} >60 [facility] Comment on above: Non- GFR Calc Glucose measurementOrdered B y: Danny Herrera on 09-17-2024 Glucose [Mass/Vol] 189 mg/dL High 74-106 [facility] Comment on above: Fasting Glucose resu lt greater than or equal to 126 mg/dL suggests DIABETES MELLITUS per A.D.A. criteria. Hematocrit Auto (Bld) [Volum e fraction]Ordered By: Danny Herrera on 09-17-2024 Hematocrit (Bld) [Volume fraction] 38.6 % 37-47 [facility] Hemoglobin A1c percentageOrd ered By: Danny Herrera on 09-17-2024 HbA1c (Bld) [Mass fraction] 7.3 % High 3.8-5.6 [facility] Comment on above: Normal < 5.7 % Predi abetic 5.7 - 6.4 % Diabetic >or= 6.5 % Please note range changes. Hemoglobin measurementOrdere d By: Danny Herrera on 09-17-2024 Hemoglobin (Bld) [Mass/Vol] 11.6 g/dL Low 12.0-15.0 [facility] Immature granulocytes/100 WB C Auto (Bld)Ordered By: Danny Herrera on 09-17-2024 Immature granulocytes/100 WBC (Bld) 0.300 % 0.0-0.9 [facility] Comment on above: IG% - Immature Granu locytes (promyelocytes, myelocytes and metamyelocytes) > 1% indicates that a LEFT SHIFT is Present. Internal Medicine Office Vis ravinder 09-17-2024 Internal Medicine Office Visit [facility] [address] [place] [address] [address] [place] [address] OFFICE VISIT Date of Service: 09/17/24 MR#: [id number] Acct: [id number] Name: MILIND DAWSON Rep #: [id number] : 1955 Provider: Dr. Danny gabriel MD Age/Sex: 69/F Location: [facility] Status: Signed with Addenda ADDENDUM by Dr. Danny Herrera MD on 09/24/24 at 1502 HPI Details: MILIND DAWSON, is a 69 F who presents to the office today for Assessment and Plan Assessment and Plan (1) Preoperative evaluation to rule out surgical contraindication: Status: Acute (2) Abnormal EKG: Status: Acute (3) Type 2 diabetes mellitus: Status: Acute Qualifiers: Diabetes mellitus senior care insulin use: without senior care use Diabetes mellitus complication status: with other specified complication Qualified Code(s): E11.69 - Type 2 diabetes mellitus with other specified complication (4) Hyperlipidemia: Status: Chronic Qualifiers: Hyperlipidemia type: mixed hyperlipidemia Qualified Code(s): E78.2 - Mixed hyperlipidemia (5) Rheumatoid arthritis: Status: Chronic (6) Hypertension: Status: Chronic Qualifiers: Hypertension type: essential hypertension Qualified Code(s): I10 - Essential (primary) hypertension Orders: Orders 12 Lead EKG performed by [facility] 09/17/24 Z01.818 - Encounter for other preprocedural examination Plan Plan is now for surgery under spinal and not general anesthesia. Less cardiac risk with this. At this time, she is medically optimized for surgery with risk as previously discussed. This note was generated with AwesomeTouchation software. It may contain incorrect words, spelling, and punctuation that were not noted in checking the note before signing. 09/24/24 1502 Date Danny Herrera MD cc: * Signed Intake Vital Signs 09/01/24 10:30 09/17/24 14:11 Height 5 ft 1 in 5 ft 1 in BP 140/70 H Blood Pressure Location Lt brachial Position Sitting Respiration 16 Pulse 109 H Pulse Source Monitor Temp 97.9 F Temp Source Temporal Pulse Oximetry (%) 99 Oxygen Delivery Method room air Intake Visit Reasons: ACUTE SURG CLEARANCE Chief Complaint: ACUTE SURGICAL CLEARANCE Is patient in pain?: Yes (GENERALIZED PAIN) Pain scale (1-10): 10 Allergies tramadol Allergy (Severe, Verified 09/17/24 14:05) seizures adalimumab (From Humira) Allergy (Unknown, Verified 09/17/24 14:05) unknown apremilast (From Otezla) Allergy (Unknown, Verified 09/17/24 14:05) unknown infliximab (From Remicade) Allergy (Unknown, Verified 09/17/24 14:05) unknown infliximab-dyyb (From Inflectra) Adverse Reaction (Unknown, Verified 09/17/24 14:05) unknown leflunomide (From Arava) Adverse Reaction (Verified 09/17/24 14:05) Other methotrexate (Methotrexate) Adverse Reaction (Verified 09/17/24 14:05) Other sulfasalazine (Sulfasalazine) Adverse Reaction (Verified 09/17/24 14:05) Other Medications ???Medication ???Instructions ???Recorded ???Confirmed ???Type acetaminophen 325 mg tablet 650 mg (2 x 325 mg) PO Q4H PRN PRN 09/08/17 09/17/24 Rx Headache/Temp>99F lisinopril 30 mg tablet See Rx Instructions .Route 5 09/17/24 Rx .COMPLEX blood pressure #90 tabs naproxen 500 mg tablet 500 mg PO BID PRN pain #60 tabs 09/17/24 Rx topiramate 100 mg tablet 100 mg PO BID #60 tabs 08/26/24 Rx Have you fallen in the past year?: No Nurse's Note: PATIENT HERE FOR SURGICAL CLEARANCE 09/23/24; LEFT HEEL BIOPSY DONE THAT DID NOT HEEL PATIENT REQUESTING REFILL OF PREDNISONE [facility] Medical History (Updated 09/17/24 @ 16:[address] Danny Herrera MD) Hypertension Abnormal EKG Preoperative evaluation to rule out surgical contraindication Type 2 diabetes mellitus Multinodular thyroid Thyroid nodule Open wound of heel Seizure disorder Hyperlipidemia Blood glucose elevated Preventative health care Acute pain of both ears Tachycardia Impacted cerumen, right ear Health care maintenance Anemia Osteoporosis Psoriatic arthritis Arthritis History of seizures Hypertension Surgical History S/P foot surgery History of cataract surgery Family History Father Myocardial infarction Social History Smoking Status: Never smoker alcohol intake: never substance use type: does not use what type of physical activity do you participate in: none HPI HPI Chief Complaint: ACUTE SURGICAL CLEARANCE Details: MILIND DAWSON, is a 69 F who presents to the office today for presurgical evaluation. Scheduled for excision of soft tissue mass of left foot with advancement flap closure. This will be done on the (more content not included)... Normal [facility] - Chemistry and C hemistry - challengeOrdered By: Danny Herrera on 09-17-2024 AST [Catalytic activity/Vol] 7 U/L Low 15-37 [facility] Lymphocytes Auto (Unsp spec) [#/Vol]Ordered By: Danny Herrera on 09-17-2024 Lymphocytes (Bld) [#/Vol] 1.79 10*3/uL 0.83-4.51 [facility] Lymphocytes/100 WBC Auto (Un sp spec)Ordered By: Danny Herrera on 09-17-2024 Lymphocytes/100 WBC (Bld) 19.4 % 19-41 [facility] MCV (mean corpuscular volume ) determinationOrdered By: Danny Herrera on 09-17-2024 MCV (RBC) [Entitic vol] 85.6 fL 81-[address] [facility] Mean corpuscular hemoglobin (MCH) determinationOrdered By: Danny Herrera on 09-17-2024 MCH (RBC) [Entitic mass] 25.7 pg Low 27.0-32.0 [facility] Mean corpuscular hemoglobin concentration (MCHC) determinationOrdered By: Danny Herrera on 09-17-2024 MCHC (RBC) [Mass/Vol] 30.1 g/dL Low 32-36 [facility] Mean platelet volume determi nationOrdered By: Danny Herrera on 09-17-2024 Platelet mean volume (Bld) [Entitic vol] 10.5 fL 6.2-12.0 [facility] Monocyte percentageOrdered B y: Danny Herrera on 09-17-2024 Monocytes/100 WBC (Bld) 7.4 % 0-[address] [facility] Neutrophil percentageOrdered By: Danny Herrera on 09-17-2024 Neutrophils/100 WBC (Bld) 67.6 % 47-70 [facility] Nucleated red blood cell per centageOrdered By: Danny Herrera on 09-17-2024 Nucleated RBC/100 WBC (Bld) [Ratio] 0 % 0-5 [facility] Platelet countOrdered By: Kali Herrera on 09-17-2024 Platelets (Bld) [#/Vol] 470 10*3/uL High 150-450 [facility] Potassium measurementOrdered By: Danny Herrera on 09-17-2024 Potassium [Moles/Vol] 4.5 mmol/L 3.5-5.1 [facility] RBC Auto (Bld) [#/Vol]Ordere d By: Danny Herrera on 09-17-2024 RBC (Bld) [#/Vol] 4.51 10*6/uL 4.2-5.4 [facility] Serum anion gap measurementO rdered By: Danny Herrera on 09-17-2024 Anion gap [Moles/Vol] 10 mmol/L 5-15 [facility] Serum globulin measurementOr dered By: Danny Herrera on 09-17-2024 Globulin (S) [Mass/Vol] 4.8 g/dL High 2.2-4.[address] [facility] Serum or plasma alanine monroe otransferase (ALT) measurementOrdered By: Danny Herrera on 09-17-2024 ALT [Catalytic activity/Vol] 12 U/L Low 13-56 [facility] Serum or plasma albumin digna urement (mass/volume)Ordered By: Danny Herrera on 09-17-2024 Albumin [Mass/Vol] 3.4 g/dL 3.2-5.0 [facility] Serum or plasma alkaline rudy sphatase measurementOrdered By: Danny Herrera on 09-17-2024 ALP [Catalytic activity/Vol] 109 U/L 45-117 [facility] Serum or plasma calcium digna urement (mass/volume)Ordered By: Danny Herrera on 09-17-2024 Calcium [Mass/Vol] 10.2 mg/dL High 8.5-10.1 [facility] Serum or plasma creatinine m easurement (mass/volume)Ordered By: Danny Herrera on 09-17-2024 Creatinine [Mass/Vol] 0.83 mg/dL 0.55-1.02 [facility] Comment on above: The validity of the calculated GFR & GFRAA in patients over 70 years has not been determined. Clinical correlation is essential. Serum or plasma urea nitroge n measurement (mass/volume)Ordered By: Danny Herrera on 09-17-2024 Urea nitrogen [Mass/Vol] 31 mg/dL High 7-18 [facility] Sodium levelOrdered By: Dayo Herrera on 09-17-2024 Sodium [Moles/Vol] 143 mmol/L 136-145 [facility] Total proteinOrdered By: Chet Herrera on 09-17-2024 Protein [Mass/Vol] 8.2 g/dL 6.4-8.2 [facility] Vitamin D,25 Hydroxyon 09-17 Vitamin D 25-OH 28.1 ng/mL Normal [facility] Comment on above: Result Comment: Karol min D 25(OH) Status Range Deficiency <20 ng/mL (50nmol/L) Insufficiency 20 - 30 ng/mL (50 - 75 nmol/L) Sufficiency 30 - 100 ng/mL (75 - 250 nmol/L) Toxicity >100 ng/mL (>250 nmol/L) Performed By: #### L 501.9985, L100.0100, L500.4050, L506.1000 ####[facility] [address] [place], [address] White blood cell (WBC) count Ordered By: Danny Herrera on 09-17-2024 WBC (Bld) [#/Vol] 9.2 10*3/uL 4.4-11.0 [facility] Lower Ext Joint Only W/WO Co nton 09-10-2024 Lower Ext Joint Only W/WO Cont [facility] Imaging Services [address] [place] [address] Lower Ext Joint Only W/WO Cont MR#: [id number] Acct: [id number] Name: MILIND DAWSON Rep #: [id number] : 1955 F 69 From: Matt Zaldivar DO PCP: Dr. Danny Herrera MD Status: REG CLI Study: Lower Ext Joint Only W/WO Cont Date of Exam: 0 09/10/24 Exam# [id number] Ordering Dr: Thompson Wright DPM PROCEDURE: LOWER EXT JOINT ONLY W/WO CONT REASON FOR EXAM: Left ankle wound/mass. TECHNIQUE: MRI of the left ankle before and after IV contrast infusion CONTRAST: 15 mL Clariscan COMPARISON: None. FINDINGS Enhancing soft tissue mass/growth from the medial heel skin surface measuring 3.1 x 1.7 x 1 cm, suspicious for neoplasia. There is no significant growth into the subcutaneous tissues. No involvement of the adjacent calcaneal cortex or plantar fascia. The Achilles and plantar fascia are unremarkable. No periosteal reaction/periostitis. No marrow lesions or stress fractures identified. The peroneal tendons and medial flexor tendons are normal. Anterior extensor tendons are normal. Talofibular ligaments and deep tibiotalar ligament are intact. Diffuse moderate subcutaneous edema could represent cellulitis versus noninfectious causes of peripheral edema. No ankle joint effusion. MRI/Lower Ext Joint Only W/WO Cont IMPRESSION: Soft tissue mass from the medial heel skin surface measuring 3.1 x 1.7 x 1 cm, suspicious for neoplasm. No significant penetration into the subcutaneous tissues. No involvement of the adjacent calcaneus or plantar fascia. Reading [facility] CC: ROLANDO Wright; Dr. Danny Herrera MD Memorial Counselor: Signed Normal [facility] Foot min 3 Viewson 5 Foot min 3 Views [facility] Imaging Services [address] [place] [address] Foot min 3 Views MR#: [id number] Acct: [id number] Name: MILIND DAWSON Rep #: [id number] : 1955 F 69 From: Fabricoi miranda DO PCP: Dr. Danny Herrera MD Status: REG RCR Study: Foot min 3 Views Date of Exam: 09/01/24 Exam# [id number] Ordering Dr: Thompson Wright DPM [id number] EXAM: XR LEFT FOOT COMPLETE, 3 OR MORE VIEWS CLINICAL INDICATION: LEFT FOOT PAIN TECHNIQUE: Frontal, lateral and oblique views of the left foot. COMPARISON: 09/05/2017 and 05/23/2024 FINDINGS: BONES/JOINTS: Diffuse osteopenia. Arthritic changes of the metatarsophalangeal joints and interphalangeal joints throughout the foot. Calcaneal spur. No acute fracture. No subluxation. Normal alignment. No sclerotic or destructive changes observed. SOFT TISSUES: Diffuse soft tissue swelling. Focal soft tissue thickening at the heel. No radiopaque foreign body. RAD/Foot min 3 Views IMPRESSION: Degenerative changes and osteopenia. Soft tissue swelling particularly at the heel. No acute osseous findings. Electronically Signed: Fabriciorach Huffman, at 22:31 EST , CC: ROLANDO Wright; Dr. Danny Herrera MD Memorial Counselor: Signed Normal [facility] History AND Physic homero 09-01-2024 Wound Ctr History & Physical [facility] [address] [place] [id number] H P Exam - Wound Care 09/01/24 1256 MR#: [id number] Acct: [id number] Name: MILIND DAWSON Rep #: [id number] : 1955 69 From: Thompson Wright DPM PCP: Dr. Danny Herrera MD Status:REG RCR Location: History of Present Illness Date of Service: 09/01/24 Chief Complaint: Left foot wound History of Wound: Chronic foot wound Progress of Wound: Mrs Dawson is a 69-year-old female presenting the wound care center today for full-thickness wound to the medial aspect of the left heel. Patient was seen by an outside provider who is being treated for a plantar wart. The patient states she did have a biopsy to the area in question and since then she has noticed an increasing growth to the soft tissue area of the left heel. She states there is pain with shoe gear. She has been doing home dressing changes. When asked about any type of advanced imaging all she has had it was a radiograph and has not had an MRI to this day. She has been treated since March 2024, with no improvements. She has been doing home dressing changes with Betadine. She denies trauma. Denies constitutional symptoms. Other pedal complaints at this time. [facility] Medical History Multinodular thyroid Thyroid nodule Open wound of heel Seizure disorder Hypertension Hyperlipidemia Type 2 diabetes mellitus Blood glucose elevated Preventative health care Acute pain of both ears Tachycardia Impacted cerumen, right ear Health care maintenance Anemia Osteoporosis Psoriatic arthritis Arthritis History of seizures Hypertension Home Medications ???Medication ???Instructions ???Recorded ???Last Taken ???Type acetaminophen 325 mg tablet 650 mg (2 x 325 mg) PO Q4H PRN PRN 09/08/17 Unknown Rx Headache/Temp>99F secukinumab 150 mg/mL subcutaneous 300 mg subcut Q4W skin 12/25/21 Unknown History syringe (Cosentyx) atorvastatin 40 mg tablet 40 mg PO QHS #30 tabs 05/24/24 Unknown Rx metformin 500 mg tablet 500 mg PO BID #60 tabs 05/24/24 Unknown Rx prednisone 5 mg tablet See Rx Instructions .Route 05/28/24 Unknown Rx .COMPLEX inflammation #90 tabs lisinopril 30 mg tablet See Rx Instructions .Route 08/20/24 Unknown Rx .COMPLEX blood pressure #90 tabs naproxen 500 mg tablet 500 mg PO BID PRN pain #60 tabs 08/26/24 Unknown Rx topiramate 100 mg tablet 100 mg PO BID #60 tabs 08/26/24 Unknown Rx Allergy/AdvReac Type Severity Reaction Status Date / Time tramadol Allergy Severe seizures Verified 09/01/24 10:30 adalimumab (From Humira) Allergy Unknown unknown Verified 09/01/24 10:30 apremilast (From Otezla) Allergy Unknown unknown Verified 09/01/24 10:30 infliximab (From Remicade) Allergy Unknown unknown Verified 09/01/24 10:30 infliximab-dyyb (From AdvReac Unknown unknown Verified 09/01/24 10:30 Inflectra) leflunomide (From Arava) AdvReac Other Verified 09/01/24 10:30 methotrexate (Methotrexate) AdvReac Other Verified 09/01/24 10:30 sulfasalazine (Sulfasalazine) AdvReac Other Verified 09/01/24 10:30 Family History Father Myocardial infarction Surgical History S/P foot surgery History of cataract surgery Social History Smoking Status: Never smoker alcohol intake: never substance use type: does not use what type of physical activity do you participate in: none Vital Signs Vital Signs Vital Signs: 09/01/24 10:30 Temperature 97.2 F L Temperature Source Temporal Pulse Rate 111 H Respiratory Rate 16 Blood Pressure 155/83 H Blood Pressure Mean 107 Blood Pressure Source Monitor Blood Pressure Position Semi-Fowlers Blood Pressure Location Right Arm Oxygen Delivery Method Room Air Weight Weight: 75.75 kg Body Mass Index (BMI) 31.5 Physical Exam Narrative Vascular: DP and PT pulses are palpable. CFT is brisk. Skin temperature is warm to warm from proximal ankles to distal digits. Nonpitting edema is appreciated to the left lower extremity. Neurological: Light touch intact. Protective station is present. Dermatological: Large soft tissue mass to the medial aspect of the heel of the left lower extremity measuring 3.5 x 2.3 x 1.5 cm. The soft tissue mass has broken through the epidermis. There looks to be multiple applications of excisional debridement by an outside provider. Cannot rule out soft tissue neoplasm at this time. Excisional debridement down to including subcutaneous tissue of the large soft tissue mass to the left lower extremity heel with a pickup and 15 blade without incident.. Right measurement was (more content not included)... Normal [facility] Neurology Visit Reporton Neurology Visit Report [facility] [address] [facility], [address] [place] [id number] OFFICE VISIT Date of Service: 07/22/24 MR#: [id number] Acct: [id number] Name: MILIND DAWSON Rep #: [id number] : 1955 Provider: Dr. Paresh cramer MD Age/Sex: 69/F Location: [facility] Status: Signed HPI HPI Chief Complaint: Establish Care Details: Interim History: Milind returns for follow-up visit. She has a history of hypertension, obesity, psoriatic arthritis and seizures. In 2018, she had 3 seizures. The first seizure occurred while she was at home. She was found on the floor by family members immediately after she fell. She was found to be lethargic and confused. Shortly before losing consciousness, she noticed some momentary darkening of her vision. She was unconscious for about 1 minute. She otherwise was unaware of any preceding events. She did not have any associated tongue biting or urinary incontinence. No clonic activity was noted. She was taking tramadol at the time this episode occurred. She then had a chemical cardiac stress test later in 2017 and had 2 witnessed seizures following the onset of this test. With these episodes she of momentary loss of consciousness, she exhibited thrashing. She did not have any tongue biting or urinary incontinence. She did not have any chest pain, shortness of breath, numbness, focal weakness, headache, lightheadedness or dizziness with these episodes. She underwent neurological evaluation. These episodes were thought to be epileptic seizures and she was treated with levetiracetam. A 24-hour EEG was normal. A head MRI revealed mild chronic subcortical small vessel ischemic disease however no acute pathology or structural pathology to account for her seizures was noted. She did not have any history of [employer] infection, concussion, significant history or childhood seizures. Levetiracetam was discontinued by her physician after about 1 year of treatment with this medication and she had no further seizures until she had a nocturnal seizure in May 2024 which was witnessed by her . She had postictal confusion and lethargy. Levetiracetam had caused mood side effects. She did not exhibit any limb shaking during the seizure in May 2024. She did not have associated tongue biting or urinary incontinence. EMS reports the patient had decreased responsiveness and right-sided facial droop. She was not sleep deprived and did not have a febrile illness prior to her seizure in May 2024. She was hospitalized and topiramate was initiated. She is tolerating this well. An EEG in May 2024 was normal. A head MRI in May 2024 revealed mild age related diffuse cerebral atrophy, and mild to moderate chronic small vessel ischemic disease. She has had no further seizures since May 2024. She is prescribed Cosentyx but is not taking this medication presently. She has had increased gait difficulties since 2018 and ambulates with a walker. Her gait difficulty appears to be due to her joint pain which has affected all joints in her lower extremities but now is prominent in the ankles. She also has a history of chronic neck pain and low back pain. She has had prior physical therapy. She has seen a pain management physician in the past and had spinal axis injections which were of only modest benefit. Meloxicam 7.5mg BID as needed was not of benefit for her musculoskeletal pain. Flurbiprofen has not been of benefit for her pain. She has a thyroid nodule for which she is pursuing evaluation. She states that a repeat ultrasound is scheduled for 2024. She had a left foot callus and plantar warts removed earlier in 2023 and has an open left foot wound for which she is currently seeing a piercer. Physical Exam: Neuro: The patient is awake and alert and responds appropriately; speech is fluent Neck: No bruits Heart: Regular rate and rhythm Extremities: An open wound is noted in the left medial heel region which is bandaged; no purulence or erythema is noted Supplemental Info EKG (09/04/2017): Sinus tachycardia Biatrial enlargement Nonspecific ST and T wave abnormality Abnormal ECG Neck MRA (09/05/2017): Normal antegrade flow within the bilateral vertebral arteries without a hemodynamically significant stenosis. 50-69% stenosis on the right. Correlation with ultrasonography can be obtained. Head MRA (09/05/2017): Normal MRA of the head Echocardiogram (09/05/2017): The estimated ejection fraction is 65%. Normal diastology for age. Bubble contrast study negative for right to left interatrial shunt. Trivial mitral valve insufficiency. Unable to estimate RV systolic pressure/pulmonary artery pressure due to technically difficult study. There is no comparison study available. Brain MRI (09/05/2017): IMPRESSION: No acute intracranial abnormality. Acute left maxillary sinus disease. C (more content not included)... Normal [facility] Thyroidon 06-29-2024 Thyroid [facility] Imaging Services [address] [place], [place] [address] Thyroid MR#: [id number] Acct: [id number] Name: MILIND DAWSON Rep #: [id number] : 1955 F 69 From: Juwan Gregory MD PCP: Dr. Danny Herrera MD Status: REG CLI Study: Thyroid Date of Exam: 06/29/24 Exam# [id number] Ordering Dr: Danny Herrera MD [id number] STUDY: THYROID ULTRASOUND REASON FOR EXAM: Female, 69 years old. ABnormal finding on CT TECHNIQUE: Ultrasound evaluation of the thyroid was performed with real-time and static alcala-scale imaging. COMPARISON: CTA of the neck 05/23/2024 FINDINGS: RIGHT LOBE: The right lobe of the thyroid gland measures 5.3 x 2.0 x 1.7 cm. There is a homogeneous echotexture. Nodule 1:7 x 5 x 5 mm solid hypoechoic wider than tall smoothly marginated nodule with no echogenic foci (TR 4) in the superior right lobe consistent with an adenoma. Nodule 2:10 x 5 x 7 mm solid isoechoic wider than tall smoothly marginated nodule with no echogenic foci (TR 3) in the inferior right lobe consistent with an adenoma. LEFT LOBE: The left lobe of the thyroid gland measures 4.6 x 1.9 x 1.8 cm. There is a homogeneous echotexture. Nodule 3:13 x 7 x 9 mm solid isoechoic wider than tall smoothly marginated nodule with no echogenic foci (closest ER 3) in the anterior left lobe consistent with an adenoma. Nodule 4:18 x 14 x 15 mm solid isoechoic wider than tall smoothly marginated nodule with no echogenic foci (TR 3) in the inferior left lobe and follow-up ultrasound is recommended one year. ISTHMUS: The isthmus measures 3 mm thick. . The regional lymph nodes are normal. US/Thyroid IMPRESSION: Multinodular thyroid gland and follow-up ultrasound is recommended one year. Electronically Signed: Juwan Gregory MD at 14:37 EST , CC: Dr. Danny Herrera MD Memorial Counselor: Signed Normal [facility], Serumon 06-23-20 TOPIRAMATE 12.2 ug/mL Normal 2.0-25.0 [facility] Comment on above: Result Comment: Dete ction Limit = 1.5 Performed at: [facility] [address] [id number] [place] Cutter: Gino Serrano MD, Phone: [phone] Performed By: #### L 3380.1400, L500.4050, L501.5200, L503.5510, L100.0500 ####[facility] [address] [place], [address] Ammoniaon 06-21-2024 Ammonia (P) [Moles/Vol] 18.0 umol/L Normal 11-32 [facility] Comment on above: Performed By: #### L 3380.1400, L500.4050, L501.5200, L503.5510, L100.0500 ####[facility] [address] [place], [address] CBC-Complete Blood Cnt No Di ffon 06-21-2024 Erythrocyte distribution width (RBC) [Ratio] 14.4 % Normal 11.6-14.6 [facility] Comment on above: Performed By: #### L 3380.1400, L500.4050, L501.5200, L503.5510, L100.0500 ####[facility] [address] [place], [address] Hematocrit (Bld) [Volume fraction] 39.8 % Normal 37-47 [facility] Comment on above: Performed By: #### L 3380.1400, L500.4050, L501.5200, L503.5510, L100.0500 ####[facility] [address] [place], [address] Hemoglobin (Bld) [Mass/Vol] 12.2 g/dL Normal 12.0-15.0 [facility] Comment on above: Performed By: #### L 3380.1400, L500.4050, L501.5200, L503.5510, L100.0500 ####[facility] [address] [place], [address] MCH (RBC) [Entitic mass] 28.0 pg Normal 27.0-32.0 [facility] Comment on above: Performed By: #### L 3380.1400, L500.4050, L501.5200, L503.5510, L100.0500 ####[facility] [address] [place], [address] MCHC (RBC) [Mass/Vol] 30.7 g/dL Low 32-36 [facility] Comment on above: Performed By: #### L 3380.1400, L500.4050, L501.5200, L503.5510, L100.0500 ####[facility] [address] [place], [address] MCV (RBC) [Entitic vol] 91.5 fL Normal 81-[address] [facility] Comment on above: Performed By: #### L 3380.1400, L500.4050, L501.5200, L503.5510, L100.0500 ####[facility] [address] [place], [address] Platelet mean volume (Bld) [Entitic vol] 10.8 fL Normal 6.2-12.0 [facility] Comment on above: Performed By: #### L 3380.1400, L500.4050, L501.5200, L503.5510, L100.0500 ####[facility] [address] [place], [address] Platelets (Bld) [#/Vol] 339 10*3/uL Normal 150-450 [facility] Comment on above: Performed By: #### L 3380.1400, L500.4050, L501.5200, L503.5510, L100.0500 ####[facility] [address] [place], [address] RBC (Bld) [#/Vol] 4.35 10*6/uL Normal 4.2-5.4 [facility] Comment on above: Performed By: #### L 3380.1400, L500.4050, L501.5200, L503.5510, L100.0500 ####[facility] [address] [place], [address] RDW SD 48.8 fl High 35.1-43.9 [facility] Comment on above: Performed By: #### L 3380.1400, L500.4050, L501.5200, L503.5510, L100.0500 ####[facility] [address] [place], [address] WBC (Bld) [#/Vol] 8.3 10*3/uL Normal 4.4-11.0 [facility] Comment on above: Performed By: #### L 3380.1400, L500.4050, L501.5200, L503.5510, L100.0500 ####[facility] [address] [place], [address] [facility] 06-21-2024 Albumin [Mass/Vol] 3.6 g/dL Normal 3.2-5.0 [facility] Comment on above: Performed By: #### L 3380.1400, L500.4050, L501.5200, L503.5510, L100.0500 ####[facility] [address] [place], [address] Albumin/Globulin [Mass ratio] 0.9 {ratio} Normal 0.9-2.4 [facility] Comment on above: Performed By: #### L 3380.1400, L500.4050, L501.5200, L503.5510, L100.0500 ####[facility] [address] [place], [address] ALK P 106 U/L Normal 45-117 [facility] Comment on above: Performed By: #### L 3380.1400, L500.4050, L501.5200, L503.5510, L100.0500 ####[facility] [address] [place], [address] ALT [Catalytic activity/Vol] 15 U/L Normal 13-56 [facility] Comment on above: Performed By: #### L 3380.1400, L500.4050, L501.5200, L503.5510, L100.0500 ####[facility] [address] [place], [address] AST [Catalytic activity/Vol] 13 U/L Low 15-37 [facility] Comment on above: Performed By: #### L 3380.1400, L500.4050, L501.5200, L503.5510, L100.0500 ####[facility] [address] [place], [address] Bilirubin [Mass/Vol] 0.40 mg/dL Normal 0.20-1.00 [facility] Comment on above: Result Comment: For patients on eltrombopag therapy, use of Dimension [place] TBIL is not recommended. Performed By: #### L 3380.1400, L500.4050, L501.5200, L503.5510, L100.0500 ####[facility] [address] [place], [address] BUN/CRE 30.9 RATIO High 10-20 [facility] Comment on above: Performed By: #### L 3380.1400, L500.4050, L501.5200, L503.5510, L100.0500 ####[facility] [address] [place], [address] CA,Total 9.7 mg/dL Normal 8.5-10.1 [facility] Comment on above: Performed By: #### L 3380.1400, L500.4050, L501.5200, L503.5510, L100.0500 ####[facility] [address] [place], [address] Chloride [Moles/Vol] 116 mmol/L High 98-107 [facility] Comment on above: Performed By: #### L 3380.1400, L500.4050, L501.5200, L503.5510, L100.0500 ####[facility] [address] [place], [address] CO2 [Moles/Vol] 19.0 mmol/L Low 21.0-32.0 [facility] Comment on above: Performed By: #### L 3380.1400, L500.4050, L501.5200, L503.5510, L100.0500 ####[facility] [address] [place], [address] Creatinine [Mass/Vol] 0.94 mg/dL Normal 0.55-1.02 [facility] Comment on above: Result Comment: The validity of the calculated GFR GFRAA in patients over 70 years has not been determined. Clinical correlation is essential. Performed By: #### L 3380.1400, L500.4050, L501.5200, L503.5510, L100.0500 ####[facility] [address] [place], [address] EST GFR - AA 77 mL/min Normal >60 [facility] Comment on above: Result Comment: Afri can Swedish GFR Calc Performed By: #### L 3380.1400, L500.4050, L501.5200, L503.5510, L100.0500 ####[facility] [address] [place], [address] GAP 6 Normal 5-15 [facility] Comment on above: Performed By: #### L 3380.1400, L500.4050, L501.5200, L503.5510, L100.0500 ####[facility] [address] [place], [address] GFR/1.73 sq M.predicted among non-blacks MDRD (S/P/Bld) [Vol rate/Area] 63 mL/min/{1.73_m2} Normal >60 [facility] Comment on above: Result Comment: Non- GFR Calc Performed By: #### L 3380.1400, L500.4050, L501.5200, L503.5510, L100.0500 ####[facility] [address] [place], [address] Globulin (S) [Mass/Vol] 3.8 g/dL Normal 2.2-4.2 [facility] Comment on above: Performed By: #### L 3380.1400, L500.4050, L501.5200, L503.5510, L100.0500 ####[facility] [address] [place], [address] Glucose [Mass/Vol] 153 mg/dL High 74-106 [facility] Comment on above: Result Comment: Fast ing Glucose result greater than or equal to 126 mg/dL suggests DIABETES MELLITUS per A.D.A. criteria. Performed By: #### L 3380.1400, L500.4050, L501.5200, L503.5510, L100.0500 ####[facility] [address] [place], [address] Potassium [Moles/Vol] 3.7 mmol/L Normal 3.5-5.1 [facility] Comment on above: Performed By: #### L 3380.1400, L500.4050, L501.5200, L503.5510, L100.0500 ####[facility] [address] [place], [address] Sodium [Moles/Vol] 141 mmol/L Normal 136-145 [facility] Comment on above: Performed By: #### L 3380.1400, L500.4050, L501.5200, L503.5510, L100.0500 ####[facility] [address] [place], [address] T PROT 7.4 g/dL Normal 6.4-8.2 [facility] Comment on above: Performed By: #### L 3380.1400, L500.4050, L501.5200, L503.5510, L100.0500 ####[facility] [address] [place], [address] Urea nitrogen [Mass/Vol] 29 mg/dL High 7-18 [facility] Comment on above: Performed By: #### L 3380.1400, L500.4050, L501.5200, L503.5510, L100.0500 ####[facility] [address] [place], [address] Lipid Profileon 06-21-2024 Cholesterol [Mass/Vol] 242 mg/dL High 200 [facility] Comment on above: Result Comment: <200 mg/dL Desirable 200-240 mg/dL Borderline >240 mg/dL High Risk Performed By: #### L 300.4310, L100.0100, L500.2500, L300.3900, L500.4100 #### [facility] [address] [place], [address] Cholesterol in HDL [Mass/Vol] 55 mg/dL Normal [facility] Comment on above: Result Comment: The drugs N-Acetylcysteine and Metamizole may falsely depress this assay. Reference Range HDL <40 mg/dL Low HDL Cholesterol HDL >or= 60 mg/dL High HDL Cholesterol Performed By: #### L 300.4310, L100.0100, L500.2500, L300.3900, L500.4100 #### [facility] [address] [place], [address] Cholesterol in LDL [Mass/Vol] 153 mg/dL High 0-130 [facility] Comment on above: Performed By: #### L 300.4310, L100.0100, L500.2500, L300.3900, L500.4100 #### [facility] [address] [place], [address] Cholesterol in VLDL [Mass/Vol] 34 mg/dL Normal 5-40 [facility] Comment on above: Performed By: #### L 300.4310, L100.0100, L500.2500, L300.3900, L500.4100 #### [facility] [address] [place], [address] Triglyceride [Mass/Vol] 169 mg/dL Normal [facility] Comment on above: Result Comment: The drugs N-Acetylcysteine and Metamizole may falsely depress this assay. Serum Triglycerides Reference Interval Normal <150 mg/dL Borderline high 150 - 199 mg/dL High 200 - 499 mg/dL Very High > or = 500 mg/dL Performed By: #### L 300.4310, L100.0100, L500.2500, L300.3900, L500.4100 #### [facility] [address] [place], [address] Magnesiumon 06-21-2024 Magnesium [Mass/Vol] 2.3 mg/dL Normal 1.6-2.6 [facility] Comment on above: Performed By: #### L 3380.1400, L500.4050, L501.5200, L503.5510, L100.0500 ####[facility] [address] [place], [address] Neurology Visit Reporton Neurology Visit Report [facility] [address] [place] [address], [address] [place] [address] OFFICE VISIT Date of Service: 06/08/24 MR#: [id number] Acct: [id number] Name: MILIND DAWSON Rep #: [id number] : 1955 Provider: Dr. Paresh cramer MD Age/Sex: 69/F Location: [facility] [place].[facility] Status: Signed HPI HPI Chief Complaint: Establish Care Details: History: The patient is a 69 year old right handed woman with a past medical history of hypertension, obesity, psoriatic arthritis and seizures. She was last seen in this office in 2020. In 2018 she had 3 seizures. The first seizure occurred while she was at home. She was found on the floor by family members immediately after she fell. She was found to be lethargic and confused. Shortly before losing consciousness, she noticed some momentary darkening of her vision. She otherwise was unaware of any preceding events. She did not have any associated tongue biting or urinary incontinence. No clonic activity was noted. She had been taking tramadol at the time this episode occurred. The period of loss of consciousness was about 1 minute. She then had a chemical cardiac stress test later in 2017 and had 2 witnessed seizures following the onset of this test. With these episodes she had momentary loss of consciousness she apparently exhibited thrashing during the momentary seizures. She did not have any tongue biting or urinary incontinence. She did not have any chest pain, shortness of breath, numbness, focal weakness, headache, lightheadedness or dizziness with these episodes. She underwent neurological evaluation. These episodes were thought to be epileptic seizures and she was treated with levetiracetam. She had a 24-hour EEG which was normal. A head MRI revealed mild chronic subcortical small vessel ischemic disease however no acute pathology or structural pathology to account for her seizures was noted. She did not have any history of [employer] infection, concussion, significant history or childhood seizures. She was diagnosed with psoriatic arthritis around 2010. After about 1 year of treatment with levetiracetam, this medication was discontinued by her physician and she has had no further seizures until she had a nocturnal seizure earlier in May 2024 which was witnessed by her . The patient had postictal confusion and lethargy. Levetiracetam had caused mood side effects. She did not exhibit any limb shaking during the seizure in May 2024. She did not have associated tongue biting or urinary incontinence. EMS reports the patient had decreased responsiveness and right-sided facial droop. She was not sleep deprived and did not have a febrile illness prior to her seizure earlier in May 2024. She was hospitalized and topiramate was initiated. She is tolerating this well. An EEG earlier in May 2024 was normal. A head MRI in May 2024 revealed mild age related diffuse cerebral atrophy, and mild to moderate chronic small vessel ischemic disease. She is prescribed Cosentyx but is not taking this medication presently. She has had increased gait difficulties since 2018 and ambulates with a walker. Her gait difficulty appears to be due to her joint pain which has affected all joints in her lower extremities but now is prominent in the ankles. She also has a history of chronic neck pain and low back pain. She has had prior physical therapy. She has seen a pain management physician in the past and had spinal axis injections which were of only modest benefit. Meloxicam 7.5mg BID as needed was not of benefit for her musculoskeletal pain. She has a thyroid nodule for which she is pursuing evaluation. She had a left foot callus and plantar warts removed earlier in 2023 and has an open left foot wound for which she is currently seeing a piercer. Past Medical History: As above. There is no family history of heart disease, lung disease, cancer, sleep apnea, or renal disease. She has a thyroid nodule for which she is pursuing evaluation. Family History: Negative for headache, cerebral aneurysm, stroke or seizure. Social History: The patient does not smoke tobacco. There is no history of alcohol abuse. There is no history of illicit drug use. Review of Systems: As above. The patient has not had any recent fever, weight loss, weight gain, chest pain, shortness of breath, gastrointestinal problems, bladder problems, or rash. She denies feelings of anxiety or depression. She denies having sleep disturbance. Physical Exam: General: Well-developed, well-nourished female in no acute distress. Neuro: The patient is awake and alert and responds appropriately; speech is fluent; language function is within normal limits Cranial nerves: Postsurgical pupils are noted bilaterally; pupils are minimally reactive; visual tony are full; face is symmetrical; tongue is midline; there are no deficits to pinprick (more content not included)... Normal [facility] L5000.0010on 06-02-2024 Natriuretic peptide B (Bld) [Mass/Vol] 17.7 pg/mL Normal 0.0-100.0 [facility] Comment on above: Order Comment: Speci men Comment: A duplicate report has been generateddue to demographicSpecimen Comment: update of the patient's Date of ,Age, Gender, and/orSpecimen Comment: Specimen Date. Please review patientresults, referenceSpecimen Comment: intervals, and calculated results thatmay have beenSpecimen Comment: affected by this change. Result Comment: Siem ens [employer] XP methodology Performed at: [facility] [id number] [place] Cutter: Jaxon Dunham PhD, Phone: [phone] Performed By: #### L 300.4310, L100.0100, L500.2500, L300.3900, L500.4100 #### [facility] [address] [place], [address] Internal Medicine Office Vis iton 05-28-2024 Internal Medicine Office Visit [facility] [place] [address] [place] [address] OFFICE VISIT Date of Service: 05/28/24 MR#: [id number] Acct: [id number] Name: MILIND DAWSON Rep #: [id number] : 1955 Provider: CHAIM clement Age/Sex: 69/F Location: [facility] [place].[facility] Status: Signed Intake Vital Signs 05/23/24 10:46 05/28/24 11:12 Height 5 ft 1 in 5 ft 1 in Weight: 171 lb BMI 32.3 BP 144/78 H Blood Pressure Location Lt brachial Position Sitting Respiration 16 Pulse 90 Pulse Source Monitor Temp 97.9 F Temp Source Temporal Pulse Oximetry (%) 97 Oxygen Delivery Method room air Intake Visit Reasons: acute - wch fu Chief Complaint: ACUTE-[facility] FU Is patient in pain?: Yes (CHRONIC PAIN) Pain scale (1-10): 10 Allergies tramadol Allergy (Severe, Verified 05/28/24 11:03) seizures adalimumab (From Humira) Allergy (Unknown, Verified 05/28/24 11:03) unknown apremilast (From Otezla) Allergy (Unknown, Verified 05/28/24 11:03) unknown infliximab (From Remicade) Allergy (Unknown, Verified 05/28/24 11:03) unknown infliximab-dyyb (From Inflectra) Adverse Reaction (Unknown, Verified 05/28/24 11:03) unknown leflunomide (From Arava) Adverse Reaction (Verified 05/28/24 11:03) Other methotrexate (Methotrexate) Adverse Reaction (Verified 05/28/24 11:03) Other sulfasalazine (Sulfasalazine) Adverse Reaction (Verified 05/28/24 11:03) Other Medications ???Medication ???Instructions ???Recorded ???Confirmed ???Type acetaminophen 325 mg tablet 650 mg (2 x 325 mg) PO Q4H PRN PRN 09/08/17 05/28/24 Rx Headache/Temp>99F secukinumab 150 mg/mL subcutaneous 300 mg subcut Q4W skin 12/25/21 05/28/24 History syringe (Cosentyx) amoxicillin 875 mg-potassium 1 tab PO BID #14 tabs 05/24/24 05/28/24 Rx clavulanate 125 mg tablet atorvastatin 40 mg tablet 40 mg PO QHS #30 tabs 05/24/24 05/28/24 Rx metformin 500 mg tablet 500 mg PO BID #60 tabs 05/24/24 05/28/24 Rx topiramate 25 mg tablet 25 mg PO UD #180 tabs 05/24/24 05/28/24 Rx lisinopril 30 mg tablet See Rx Instructions .Route 05/28/24 05/28/24 Rx .COMPLEX blood pressure #90 tabs prednisone 5 mg tablet See Rx Instructions .Route 05/28/24 05/28/24 Rx .COMPLEX inflammation #90 tabs Have you fallen in the past year?: No PFSH Medical History Hyperlipidemia Type 2 diabetes mellitus Blood glucose elevated Preventative health care Acute pain of both ears Tachycardia Impacted cerumen, right ear Health care maintenance Anemia Osteoporosis Psoriatic arthritis Arthritis History of seizures Hypertension Surgical History S/P foot surgery History of cataract surgery Family History Father Myocardial infarction Social History Smoking Status: Unknown if ever smoked alcohol intake: never substance use type: does not use what type of physical activity do you participate in: none HPI HPI Chief Complaint: ACUTE-[facility] FU Details: MILIND DAWSON, is a 69 F who presents to the office today for a hospital f/u. Patient was discharged from [facility] on 05/24/24. She was admitted for 1 day following AMS with right sided weakness and right facial droop which had resolved prior to ER evaluation. Per family, patient was sitting in her recliner when they heard gurgling and found patient unresponsive. CT of the brain showed mild atherosclerotic disease of bilateral carotid arteries per the CTA but no acute intracranial pathology on the CT brain. She was admitted and managed for acute encephalopathy with right facial droop and right-sided weakness rule out a stroke. She also had EEG which did not show any evidence of any seizures. MRI of the brain also showed no evidence of acute stroke. She was discharged with a prescription for topamax for possible seizure. She was also treated for possible aspiration PNA due to hypoxia on arrival with IV antibiotics and prescribed Augmentin at discharge. She has a history of seizures, last known seizure was 7 years ago. She was previously on Keppra but states that she had been off of this medication for the past few years. Patient and family reports she did not tolerate Keppra secondary to personality/mood changes. She does not recall recent event. Family describes a post-ictal state when EMS arrived. Additionally, a1c was 7.2% (previously 7.3%) and metformin was increased from 750 mg daily to 500 mg BID. She is tolerating the increased dose without ADRs. Incidental finding of left thyroid nodule on CT with recommended US f/u. Left foot xray was performed due to going Left foot ulcers s/p removal by Dr. Curtis. She has a f/u with Dr. Curtis next week. (more content not included)... Normal [facility] Brain W/WO Contraston 2023 Brain W/WO Contrast [facility] [address] [place] [address] Brain W/WO Contrast MR#: [id number] Acct: [id number] Name: MILIND DAWSON Rep #: [id number] : 1955 F 69 From: Brennan Nuñez MD PCP: Dr. Danny Herrera MD Status: ADM IN Study: Brain W/WO Contrast Date of Exam: 05/24/24 Exam# [id number] Ordering Dr: Jaqui Carey DO [id number] EXAM: MR HEAD WITHOUT AND WITH INTRAVENOUS CONTRAST CLINICAL INDICATION: Stroke/seizure. TECHNIQUE: Multiplanar and multisequence MR images of the brain were obtained without and with intravenous contrast. CONTRAST: 15 mL of IV Clariscan. COMPARISON: CT head without contrast 09/06/2017. FINDINGS: BRAIN AND EXTRA-AXIAL SPACES: No diffusion restriction to suspect acute or subacute ischemic infarct. Few subcortical and periventricular white matter T2 FLAIR hyperintensity foci in both cerebral hemispheres are chronic white matter ischemic changes. No midline shift and no mass effects. Following IV contrast administration, there are no abnormally enhancing lesions intra-axially and extra-axially. No communicating or noncommunicating hydrocephalus. Normal ventricles and cisterns. No intra- or extra-axial hemorrhage. Posterior fossa structures are unremarkable. SELLA: Unremarkable. Normal sella turcica, pituitary gland, infundibular stalk, optic chiasm and hypothalamus. AUDITORY SYSTEM: Unremarkable. The internal auditory canals are patent. BONES/JOINTS: Unremarkable. No discrete lytic or blastic abnormalities. SINUSES: Unremarkable as visualized. Clear. MASTOID AIR CELLS: Unremarkable as visualized. Clear. ORBITS: Unremarkable as visualized. Both globes, extraocular muscles, optic nerves and retrobulbar fat appear unremarkable. VASCULATURE: Unremarkable as visualized. Normal flow voids in the major intracranial circulation. MRI/Brain W/WO Contrast IMPRESSION: 1. No MRI evidence of acute or subacute ischemic infarct or acute intracranial abnormality. 2. Chronic white matter ischemic changes in both cerebral hemispheres. 3. No abnormally enhancing lesions intra-axially and extra-axially. Electronically Signed: Brennan Nuñez MD at 11:03 EDT , CC: Dr. Danny Herrera MD; Dr. Jaqui Carey DO [facility] Counselor: Signed Normal [facility] CBC W/Diff, Automatedon 05-11 Absolute Lymph 2.22 X10 3/uL Normal 0.83-4.51 [facility] Comment on above: Performed By: #### L 501.5200, L500.4050, L100.0100, L501.2300 ####[facility] [address] [place], [address] Absolute Neut 4.4 X10 3/uL Normal 2.0-7.7 [facility] Comment on above: Performed By: #### L 501.5200, L500.4050, L100.0100, L501.2300 ####[facility] [address] [place], [address] Basophils/100 WBC (Bld) 0.3 % Normal 0-[address] [facility] Comment on above: Performed By: #### L 501.5200, L500.4050, L100.0100, L501.2300 ####[facility] [address] [place], [address] Eosinophils/100 WBC (Bld) 3.3 % Normal 0-5 [facility] Comment on above: Performed By: #### L 501.5200, L500.4050, L100.0100, L501.2300 ####[facility] [address] [place], [address] Erythrocyte distribution width (RBC) [Ratio] 14.1 % Normal 11.6-14.6 [facility] Comment on above: Performed By: #### L 501.5200, L500.4050, L100.0100, L501.2300 ####[facility] [address] [place], [address] Hematocrit (Bld) [Volume fraction] 34.4 % Low 37-47 [facility] Comment on above: Performed By: #### L 501.5200, L500.4050, L100.0100, L501.2300 ####[facility] [address] [place], [address] Hemoglobin (Bld) [Mass/Vol] 10.6 g/dL Low 12.0-15.0 [facility] Comment on above: Performed By: #### L 501.5200, L500.4050, L100.0100, L501.2300 ####[facility] [address] [place], [address] IG% 0.300 Normal 0.0-0.9 [facility] Comment on above: Result Comment: IG% - Immature Granulocytes (promyelocytes, myelocytes and metamyelocytes) > 1% indicates that a LEFT SHIFT is Present. Performed By: #### L 501.5200, L500.4050, L100.0100, L501.2300 ####[facility] [address] [place], [address] Lymphocytes/100 WBC (Bld) 28.9 % Normal 19-41 [facility] Comment on above: Performed By: #### L 501.5200, L500.4050, L100.0100, L501.2300 ####[facility] [address] [place], [address] MCH (RBC) [Entitic mass] 28.6 pg Normal 27.0-32.0 [facility] Comment on above: Performed By: #### L 501.5200, L500.4050, L100.0100, L501.2300 ####[facility] [address] [place], [address] MCHC (RBC) [Mass/Vol] 30.8 g/dL Low 32-36 [facility] Comment on above: Performed By: #### L 501.5200, L500.4050, L100.0100, L501.2300 ####[facility] [address] [place], [address] MCV (RBC) [Entitic vol] 92.7 fL Normal 81-[address] [facility] Comment on above: Performed By: #### L 501.5200, L500.4050, L100.0100, L501.2300 ####[facility] [address] [place], [address] Monocytes/100 WBC (Bld) 9.6 % Normal 0-10 [facility] Comment on above: Performed By: #### L 501.5200, L500.4050, L100.0100, L501.2300 ####[facility] [address] [place], [address] Neutrophils/100 WBC (Bld) 57.6 % Normal 47-70 [facility] Comment on above: Performed By: #### L 501.5200, L500.4050, L100.0100, L501.2300 ####[facility] [address] [place], [address] Nucleated RBC (Bld) [#/Vol] 0 10*3/uL Normal 0-5 [facility] Comment on above: Performed By: #### L 501.5200, L500.4050, L100.0100, L501.2300 ####[facility] [address] [place], [address] Platelet mean volume (Bld) [Entitic vol] 10.1 fL Normal 6.2-12.0 [facility] Comment on above: Performed By: #### L 501.5200, L500.4050, L100.0100, L501.2300 ####[facility] [address] [place], [address] Platelets (Bld) [#/Vol] 280 10*3/uL Normal 150-450 [facility] Comment on above: Performed By: #### L 501.5200, L500.4050, L100.0100, L501.2300 ####[facility] [address] [place], [address] RBC (Bld) [#/Vol] 3.71 10*6/uL Low 4.2-5.4 [facility] Comment on above: Performed By: #### L 501.5200, L500.4050, L100.0100, L501.2300 ####[facility] [address] [place], [address] RDW SD 48.2 fl High 35.1-43.9 [facility] Comment on above: Performed By: #### L 501.5200, L500.4050, L100.0100, L501.2300 ####[facility] [address] [place], [address] WBC (Bld) [#/Vol] 7.7 10*3/uL Normal 4.4-11.0 [facility] Comment on above: Performed By: #### L 501.5200, L500.4050, L100.0100, L501.2300 ####[facility] [address] [place], [address] Comprehensive Metabolic Prof ilon 05-24-2024 Albumin [Mass/Vol] 3.0 g/dL Low 3.2-5.0 [facility] Comment on above: Order Comment: Comme nts: NPO at [place] prior to lipid panel Performed By: #### L 501.5200, L500.4050, L100.0100, L501.2300 ####[facility] [address] [place], [address] Albumin/Globulin [Mass ratio] 0.9 {ratio} Normal 0.9-2.4 [facility] Comment on above: Order Comment: Comme nts: NPO at [place] prior to lipid panel Performed By: #### L 501.5200, L500.4050, L100.0100, L501.2300 ####[facility] [address] [place], [address] ALK P 69 U/L Normal 45-117 [facility] Comment on above: Order Comment: Comme nts: NPO at [place] prior to lipid panel Performed By: #### L 501.5200, L500.4050, L100.0100, L501.2300 ####[facility] [address] [place], [address] ALT [Catalytic activity/Vol] 17 U/L Normal 13-56 [facility] Comment on above: Order Comment: Comme nts: NPO at [place] prior to lipid panel Performed By: #### L 501.5200, L500.4050, L100.0100, L501.2300 ####[facility] [address] [place], [address] AST [Catalytic activity/Vol] 12 U/L Low 15-37 [facility] Comment on above: Order Comment: Comme nts: NPO at [place] prior to lipid panel Performed By: #### L 501.5200, L500.4050, L100.0100, L501.2300 ####[facility] [address] [place], [address] Bilirubin [Mass/Vol] 0.40 mg/dL Normal 0.20-1.00 [facility] Comment on above: Order Comment: Comme nts: NPO at [place] prior to lipid panel Result Comment: For patients on eltrombopag therapy, use of Dimension [place] TBIL is not recommended. Performed By: #### L 501.5200, L500.4050, L100.0100, L501.2300 ####[facility] [address] [place], [address] BUN/CRE 30.3 RATIO High 10-20 [facility] Comment on above: Order Comment: Comme nts: NPO at [place] prior to lipid panel Performed By: #### L 501.5200, L500.4050, L100.0100, L501.2300 ####[facility] [address] [place], [address] CA,Total 9.2 mg/dL Normal 8.5-10.1 [facility] Comment on above: Order Comment: Comme nts: NPO at [place] prior to lipid panel Performed By: #### L 501.5200, L500.4050, L100.0100, L501.2300 ####[facility] [address] [place], [address] Chloride [Moles/Vol] 108 mmol/L High 98-107 [facility] Comment on above: Order Comment: Comme nts: NPO at MN prior to lipid panel Performed By: #### L 501.5200, L500.4050, L100.0100, L501.2300 ####[facility] [address] [place], [address] CO2 [Moles/Vol] 26.0 mmol/L Normal 21.0-32.0 [facility] Comment on above: Order Comment: Comme nts: NPO at MN prior to lipid panel Performed By: #### L 501.5200, L500.4050, L100.0100, L501.2300 ####[facility] [address] [place], [address] Creatinine [Mass/Vol] 0.76 mg/dL Normal 0.55-1.02 [facility] Comment on above: Order Comment: Comme nts: NPO at [place] prior to lipid panel Result Comment: The validity of the calculated GFR GFRAA in patients over 70 years has not been determined. Clinical correlation is essential. Performed By: #### L 501.5200, L500.4050, L100.0100, L501.2300 ####[facility] [address] [place], [address] ECRCL 64.16 ml/min Normal [facility] Comment on above: Order Comment: Comme nts: NPO at MN prior to lipid panel Performed By: #### L 501.5200, L500.4050, L100.0100, L501.2300 ####[facility] [address] [place], [address] EST GFR - AA 98 mL/min Normal >60 [facility] Comment on above: Order Comment: Comme nts: NPO at MN prior to lipid panel Result Comment: Afri can Swedish GFR Calc Performed By: #### L 501.5200, L500.4050, L100.0100, L501.2300 ####[facility] [address] [place], [address] GAP 5 Normal 5-15 [facility] Comment on above: Order Comment: Comme nts: NPO at MN prior to lipid panel Performed By: #### L 501.5200, L500.4050, L100.0100, L501.2300 ####[facility] [address] [place], [address] GFR/1.73 sq M.predicted among non-blacks MDRD (S/P/Bld) [Vol rate/Area] 81 mL/min/{1.73_m2} Normal >60 [facility] Comment on above: Order Comment: Comme nts: NPO at MN prior to lipid panel Result Comment: Non- GFR Calc Performed By: #### L 501.5200, L500.4050, L100.0100, L501.2300 ####[facility] [address] [place], [address] Globulin (S) [Mass/Vol] 3.5 g/dL Normal 2.2-4.2 [facility] Comment on above: Order Comment: Comme nts: NPO at MN prior to lipid panel Performed By: #### L 501.5200, L500.4050, L100.0100, L501.2300 ####[facility] [address] [place], [address] Glucose [Mass/Vol] 137 mg/dL High 74-106 [facility] Comment on above: Order Comment: Comme nts: NPO at MN prior to lipid panel Result Comment: Fast ing Glucose result greater than or equal to 126 mg/dL suggests DIABETES MELLITUS per A.D.A. criteria. Performed By: #### L 501.5200, L500.4050, L100.0100, L501.2300 ####[facility] [address] [place], [address] Potassium [Moles/Vol] 3.8 mmol/L Normal 3.5-5.1 [facility] Comment on above: Order Comment: Comme nts: NPO at [place] prior to lipid panel Performed By: #### L 501.5200, L500.4050, L100.0100, L501.2300 ####[facility] [address] [place], [address] Sodium [Moles/Vol] 139 mmol/L Normal 136-145 [facility] Comment on above: Order Comment: Comme nts: NPO at MN prior to lipid panel Performed By: #### L 501.5200, L500.4050, L100.0100, L501.2300 ####[facility] [address] [place], [address] T PROT 6.5 g/dL Normal 6.4-8.2 [facility] Comment on above: Order Comment: Comme nts: NPO at [place] prior to lipid panel Performed By: #### L 501.5200, L500.4050, L100.0100, L501.2300 ####[facility] [address] [place], [address] Urea nitrogen [Mass/Vol] 23 mg/dL High - [facility] Comment on above: Order Comment: Comme nts: NPO at [place] prior to lipid panel Performed By: #### L 501.5200, L500.4050, L100.0100, L501.2300 ####[facility] [address] [place], [address] Discharge Instructionon 05-11 Discharge Instruction [facility] Medical Records Department [address] [place] [address] Instructions for Home/Discharge Instructions 05/24/24 1536 MR#: [id number] Acct: [id number] Name: MILIND DAWSON Rep #: [id number] : 1955 69 From: Conchita Ding MD PCP: Dr. Danny Herrera MD Status:ADM IN Discharge Instructions Diet Discharge Diet: Low fat / Low cholesterol Activity Discharge Activity: Return to Normal Activity Weight Bearing Status: Weight bearing as tolerated Dressing / Incision Call your doctor if you observe: Fever of 101 or Higher, Shortness of breath, Dizziness, Swelling in the ankles and Chest pain Follow Up Care Test Results: Test results from this visit will be discussed in further detail at your follow-up appointment, if applicable. Discharge Plan Admission Admit Date/Time: 05/23/24 07:35 Primary Reason for Your Visit: altered mental status, right facial droop Attending Provider: Conchita Ding Primary Care Provider: Danny Herrera Consulting Providers: Tali Alvarado; Nina Murguia; Cynthia Prince; Earl Ugalde; Rahat Garcia; Omar Esparza; ALONZO RUSH; Fransisca Leal; Mckenna Trujillo; Minesh Kaminski; Sofie Leahy; Salvador Chen; Dilcia Chapman; Liz Rasmussen; Toby Weinberg; Beata Meyer; Vaibhav José; Jaziel Owen; Fabien Murray; Rachel Candelaria; Rodriguez Garza; Hardeep Helms; David Childs; Cain Velazquez; Yolanda Carey; Yao Zapata; Jaqui Carey; Conchita Ding; Nazario Cook Instructions Patient Instructions: ED Confusion, Altered LOC Ch Discharge Orders/Prescriptions Prescriptions: New topiramate 25 mg tablet 25 mg PO UD Qty: 180 2RF Rx Instructions: take one tablet (25mg) twice daily for one week, then two tablets (50mg) twice daily for one week, then three tablets (75mg) twice daily for one week, then continue with 4 tablet (100mg) twice daily. atorvastatin 40 mg tablet 40 mg PO QHS Qty: 30 2RF metformin 500 mg tablet 500 mg PO BID Qty: 60 2RF Continued Cosentyx 150 mg/mL syringe 300 mg subcut Q4W Rx Instructions: start 4 wks after last weekly dose;inject [id number] doses each in different thigh/upper arm/abdominal areas. last took in March acetaminophen 325 MG tablet 650 mg PO Q4H PRN PRN (Reason: Headache/Temp>99F) 0RF prednisone 5 mg tablet See Rx Instructions .ROUTE .COMPLEX Qty: 90 0RF Dose Instruction: TAKE 1 TABLET BY MOUTH EVERY DAY Rx Instructions: TAKE 1 TABLET BY MOUTH EVERY DAY lisinopril 30 mg tablet See Rx Instructions .ROUTE .COMPLEX Qty: 90 0RF Dose Instruction: TAKE 1 TABLET BY MOUTH EVERY DAY Rx Instructions: TAKE 1 TABLET BY MOUTH EVERY DAY Referrals / Follow Up: Danny Herrera MD [Primary Care Provider] - Within 1 Week Disposition Disposition (needs filled in before D/C Order can be placed): Home, Self Care 05/24/24 1536 Conchita Ding MD CC: Liz Rasmussen; Mckenna Trujillo; Hardeep Helms; Nina Murguia MD; Dilcia Chapman MD; Salvador Chen MD; Cynthia Prince MD; Dr. Megan Rush MD; Dr. Tali Alvarado MD; Dr. Toby Weinberg MD; Dr. Danny Herrera MD; Dr. Beata Meyer MD; Dr. Jaziel Owen MD; Dr. Vaibhav José MD; Dr. Rahat Garcia MD; Dr. Jaqui Carey DO; Dr. Nazario Cook DO; Dr. Fabien Murray DO; Dr. Rodriguez aGrza MD; Dr. Rachel Candelaria MD; Dr. Conchita Ding MD; Dr. David Childs MD; Dr. Cain Velazquez MD; Dr. Yolanda Carey MD; Omar Esparza MD; Earl Ugalde MD; Fransisca Leal DO; Minesh Kaminski MD; Sofie Leahy DO; Yao Zapata MD Signed Normal [facility] Magnesiumon 05-24-2024 Magnesium [Mass/Vol] 2.0 mg/dL Normal 1.6-2.6 [facility] Comment on above: Order Comment: Comme nts: NPO at [place] prior to lipid panel Performed By: #### L 501.5200, L500.4050, L100.0100, L501.2300 ####[facility] [address] [place], [address] Phosphoruson 05-24-2024 Phosphate [Mass/Vol] 2.8 mg/dL Normal 2.5-4.9 [facility] Comment on above: Order Comment: Comme nts: NPO at PR prior to lipid panel Performed By: #### L 501.5200, L500.4050, L100.0100, L501.2300 ####[facility] [address] [place], [address] 12 Lead EKGon 05-23-2024 12 Lead EKG [facility] Cardiovascular Services [address] [place] [address] 12 Lead EKG 05/23/24 0641 MR#: [id number] Acct: [id number] Name: MILIND DAWSON Rep #: [id number] : 1955 69 From: Heriberto Wyatt MD Attending Dr: Dr. Conchita Ding MD Status: AD M IN Ordering Dr: Fabrizio Shafer DO Date: 05/23/24 Location: [facility] Sex: F C Admitted: 05/23/24 Test Reason : STROKE Blood Pressure : / mmHG Vent. Rate : 115 BPM Atrial Rate : 115 BPM P-R Int : 144 ms QRS Dur : 074 ms QT Int : 300 ms P-R-T Axes : 066 043 040 degrees QTc Int : 415 ms Sinus tachycardia Nonspecific ST abnormality Abnormal ECG Confirmed by Heriberto Wyatt ([id number]), video tape editor BENNY ESCALERA ([id number]) on 05/24/2024 9:40:43 AM Referred By: Confirmed By:Heriberto Wyatt 05/24/24 0940 Date Heriberto Wyatt MD CC: Dr. Danny Herrera MD; Dr. Conchita Ding MD; Fabrizio Shafer DO Signed Normal [facility] Basic Metabolic Profile (BMP )on 05-23-2024 BUN/CRE 32.7 RATIO High 10-20 [facility] Comment on above: Performed By: #### L 300.4310, L100.0100, L500.2500, L300.3900, L500.4100 #### [facility] [address] [place], [address] CA,Total 9.7 mg/dL Normal 8.5-10.1 [facility] Comment on above: Performed By: #### L 300.4310, L100.0100, L500.2500, L300.3900, L500.4100 #### [facility] [address] [place], [address] Chloride [Moles/Vol] 108 mmol/L High 98-107 [facility] Comment on above: Performed By: #### L 300.4310, L100.0100, L500.2500, L300.3900, L500.4100 #### [facility] [address] [place], [address] CO2 [Moles/Vol] 22.0 mmol/L Normal 21.0-32.0 [facility] Comment on above: Performed By: #### L 300.4310, L100.0100, L500.2500, L300.3900, L500.4100 #### [facility] [address] [place], [address] Creatinine [Mass/Vol] 1.01 mg/dL Normal 0.55-1.02 [facility] Comment on above: Result Comment: The validity of the calculated GFR GFRAA in patients over 70 years has not been determined. Clinical correlation is essential. Performed By: #### L 300.4310, L100.0100, L500.2500, L300.3900, L500.4100 #### [facility] [address] [place], [address] ECRCL 51.09 ml/min Normal [facility] Comment on above: Performed By: #### L 300.4310, L100.0100, L500.2500, L300.3900, L500.4100 #### [facility] [address] [place], [address] EST GFR - AA 70 mL/min Normal >60 [facility] Comment on above: Result Comment: Afri can Swedish GFR Calc Performed By: #### L 300.4310, L100.0100, L500.2500, L300.3900, L500.4100 #### [facility] [address] [place], [address] GAP 9 Normal 5-15 [facility] Comment on above: Performed By: #### L 300.4310, L100.0100, L500.2500, L300.3900, L500.4100 #### [facility] [address] [place], [address] GFR/1.73 sq M.predicted among non-blacks MDRD (S/P/Bld) [Vol rate/Area] 58 mL/min/{1.73_m2} Low >60 [facility] Comment on above: Result Comment: Non- GFR Calc Performed By: #### L 300.4310, L100.0100, L500.2500, L300.3900, L500.4100 #### [facility] [address] [place], [address] Glucose [Mass/Vol] 173 mg/dL High 74-106 [facility] Comment on above: Result Comment: Fast ing Glucose result greater than or equal to 126 mg/dL suggests DIABETES MELLITUS per A.D.A. criteria. Performed By: #### L 300.4310, L100.0100, L500.2500, L300.3900, L500.4100 #### [facility] [address] [place], [address] Potassium [Moles/Vol] 3.8 mmol/L Normal 3.5-5.1 [facility] Comment on above: Performed By: #### L 300.4310, L100.0100, L500.2500, L300.3900, L500.4100 #### [facility] [address] [place], [address] Sodium [Moles/Vol] 139 mmol/L Normal 136-145 [facility] Comment on above: Performed By: #### L 300.4310, L100.0100, L500.2500, L300.3900, L500.4100 #### [facility] [address] [place], [address] Urea nitrogen [Mass/Vol] 33 mg/dL High 7-18 [facility] Comment on above: Performed By: #### L 300.4310, L100.0100, L500.2500, L300.3900, L500.4100 #### [facility] [address] [place], [address] Bedside Glucoseon 05-23-2024 FINGERSTICK GLU 205 mg/dL High 74-106 [facility] Comment on above: Result Comment: MORGAN GEMENT OF PATIENT CARE PER NURSING PROTOCOL Performed By: #### L 501.080 ####[facility] [address] [place], [address] FINGERSTICK GLU 176 mg/dL High 74-106 [facility] Comment on above: Result Comment: MORGAN GEMENT OF PATIENT CARE PER NURSING PROTOCOL Performed By: #### L 501.080 ####[facility] [address] [place], [address] FINGERSTICK GLU 199 mg/dL High 74-106 [facility] Comment on above: Result Comment: MORGAN GEMENT OF PATIENT CARE PER NURSING PROTOCOL Performed By: #### L 501.080 ####[facility] [address] [place], [address] CBC W/Diff, Automatedon 10- Absolute Lymph 4.13 X10 3/uL Normal 0.83-4.51 [facility] Comment on above: Performed By: #### L 300.4310, L100.0100, L500.2500, L300.3900, L500.4100 #### [facility] [address] [place], [address] Absolute Neut 4.5 X10 3/uL Normal 2.0-7.7 [facility] Comment on above: Performed By: #### L 300.4310, L100.0100, L500.2500, L300.3900, L500.4100 #### [facility] [address] [place], [address] Basophils/100 WBC (Bld) 0.6 % Normal 0-[address] [facility] Comment on above: Performed By: #### L 300.4310, L100.0100, L500.2500, L300.3900, L500.4100 #### [facility] [address] [place], [address] Eosinophils/100 WBC (Bld) 3.9 % Normal 0-5 [facility] Comment on above: Performed By: #### L 300.4310, L100.0100, L500.2500, L300.3900, L500.4100 #### [facility] [address] [place], [address] Erythrocyte distribution width (RBC) [Ratio] 14.2 % Normal 11.6-14.6 [facility] Comment on above: Performed By: #### L 300.4310, L100.0100, L500.2500, L300.3900, L500.4100 #### [facility] [address] [place], [address] Hematocrit (Bld) [Volume fraction] 38.9 % Normal 37-47 [facility] Comment on above: Performed By: #### L 300.4310, L100.0100, L500.2500, L300.3900, L500.4100 #### [facility] [address] [place], [address] Hemoglobin (Bld) [Mass/Vol] 11.8 g/dL Low 12.0-15.0 [facility] Comment on above: Performed By: #### L 300.4310, L100.0100, L500.2500, L300.3900, L500.4100 #### [facility] [address] [place], [address] IG% 0.800 Normal 0.0-0.9 [facility] Comment on above: Result Comment: IG% - Immature Granulocytes (promyelocytes, myelocytes and metamyelocytes) > 1% indicates that a LEFT SHIFT is Present. Performed By: #### L 300.4310, L100.0100, L500.2500, L300.3900, L500.4100 #### [facility] [address] [place], [address] Lymphocytes/100 WBC (Bld) 41.1 % High 19-41 [facility] Comment on above: Performed By: #### L 300.4310, L100.0100, L500.2500, L300.3900, L500.4100 #### [facility] [address] [place], [address] MCH (RBC) [Entitic mass] 28.5 pg Normal 27.0-32.0 [facility] Comment on above: Performed By: #### L 300.4310, L100.0100, L500.2500, L300.3900, L500.4100 #### [facility] [address] [place], [address] MCHC (RBC) [Mass/Vol] 30.3 g/dL Low 32-36 [facility] Comment on above: Performed By: #### L 300.4310, L100.0100, L500.2500, L300.3900, L500.4100 #### [facility] [address] [place], [address] MCV (RBC) [Entitic vol] 94.0 fL Normal 81-99 [facility] Comment on above: Performed By: #### L 300.4310, L100.0100, L500.2500, L300.3900, L500.4100 #### [facility] [address] [place], [address] Monocytes/100 WBC (Bld) 9.2 % Normal 0-[address] [facility] Comment on above: Performed By: #### L 300.4310, L100.0100, L500.2500, L300.3900, L500.4100 #### [facility] [address] [place], [address] Neutrophils/100 WBC (Bld) 44.4 % Low 47-70 [facility] Comment on above: Performed By: #### L 300.4310, L100.0100, L500.2500, L300.3900, L500.4100 #### [facility] [address] [place], [address] Nucleated RBC (Bld) [#/Vol] 0 10*3/uL Normal 0-5 [facility] Comment on above: Performed By: #### L 300.4310, L100.0100, L500.2500, L300.3900, L500.4100 #### [facility] [address] [place], [address] Platelet mean volume (Bld) [Entitic vol] 9.8 fL Normal 6.2-12.0 [facility] Comment on above: Performed By: #### L 300.4310, L100.0100, L500.2500, L300.3900, L500.4100 #### [facility] [address] [place], [address] Platelets (Bld) [#/Vol] 330 10*3/uL Normal 150-450 [facility] Comment on above: Performed By: #### L 300.4310, L100.0100, L500.2500, L300.3900, L500.4100 #### [facility] [address] [place], [address] RBC (Bld) [#/Vol] 4.14 10*6/uL Low 4.2-5.4 [facility] Comment on above: Performed By: #### L 300.4310, L100.0100, L500.2500, L300.3900, L500.4100 #### [facility] [address] [place], [address] RDW SD 49.1 fl High 35.1-43.9 [facility] Comment on above: Performed By: #### L 300.4310, L100.0100, L500.2500, L300.3900, L500.4100 #### [facility] [address] [place], [address] WBC (Bld) [#/Vol] 10.1 10*3/uL Normal 4.4-11.0 [facility] Comment on above: Performed By: #### L 300.4310, L100.0100, L500.2500, L300.3900, L500.4100 #### [facility] [address] [place], [address] Chest 1 Viewon 05-23-2024 Chest 1 View [facility] Imaging Services [address] [place] [address] Chest 1 View MR#: [id number] Acct: [id number] Name: MILIND DAWSON Rep #: [id number] : 1955 F 69 From: Fabien Pantoja MD PCP: Dr. Danny Herrera MD Status: ADM IN Study: Chest 1 View Date of Exam: 05/23/24 Exam# [id number] Ordering Dr: Fabrizio Shafer DO [id number] INDICATION: Neuro deficit, acute, stroke suspected EXAMINATION/TECHNIQUE: X-RAY - XR Chest 1 View COMPARISON: May 09, 2020. FINDINGS: LINES/DEVICES: None. LUNGS: Lungs symmetrically hyperexpanded. No consolidation, edema or effusion. No pneumothorax. MEDIASTINUM AND CARDIOVASCULAR STRUCTURES: Cardiac silhouette not enlarged. BONES AND SOFT TISSUES: Unremarkable. RAD/Chest 1 View IMPRESSION: Hyperexpansion compatible with chronic obstructive pulmonary disease. No radiographic evidence of acute cardiopulmonary disease. Electronically Signed: Fabien Pantoja MD at 7:56 EDT , CC: Dr. Danny Herrera MD; Fabrizio Shafer DO Memorial Counselor: Signed Normal [facility] Echo Completeon 05-23-[address] [facility] Cardiovascular Services [address] [place] [address] Echo Complete 05/24/24 1435 MR#: [id number] Acct: [id number] Name: MILIND DAWSON Rep #: [id number] : 1955 69 From: Rufino Velez MD Attending Dr: Dr. Conchita Ding MD Status: DI S IN Ordering Dr: Jaqui Carey DO Date: 05/23/24 Location: PCU Sex: F C Admitted: 05/23/24 Reason For Study: tia/stroke Procedure This was a 2D Doppler, Color Flow transthoracic echocardiogram. Exam performed in department. Left Ventricle Normal LV size. Left ventricular systolic function is normal. The left ventricular ejection fraction is 70 %. Stage 2 diastolic dysfunction. No regional wall motion abnormalities noted. Right Ventricle Normal RV size. Normal systolic function. Atria Normal left atrium. Normal right atrium. Tricuspid Valve Normal tricuspid valve. Aortic Valve Normal aortic valve. Pulmonic Valve The pulmonic valve is not well visualized. Great Vessels Normal aortic root. Pericardium/Pleural No pericardial effusion. MMode/2D Measurements Calculations LVIDd: 3.7 cm IVSd: 1.00 cm Ao root diam: 2.7 cm LVIDs: 2.0 cm LVPWd: 1.2 cm FS: 44.7 % LAV(MOD-sp4): 24.9 ml LVAd ap4: 19.4 cm2 SV(MOD-sp4): 30.9 ml LVLd ap4: 7.4 cm EDV(MOD-sp4): 42.7 ml EDV(sp4-el): 43.1 ml LVAs ap4: 8.8 cm2 LVLs ap4: 6.1 cm ESV(MOD-sp4): 11.7 ml ESV(sp4-el): 10.9 ml EF(MOD-sp4): 72.5 % EF(sp4-el): 74.8 % SV(sp4-el): 32.2 ml LA dimension(2D): 3.4 cm LA A4 area: 12.3 cm2 RA A4 area: 8.1 cm2 Time Measurements MV dec time: 0.13 sec Doppler Measurements Calculations MV E max shaina: 84.4 cm/sec Lat Peak E' Shaina: 8.2 cm/sec Med Peak E' Shaina: 6.8 cm/sec MV A max shaina: 78.0 cm/sec E/E' lat: 10.2 E/E' med: 12.4 MV E/A: 1.1 MV V2 max: 84.9 cm/sec Ao V2 max: 144.3 cm/sec MV max P.9 mmHg MV dec slope: 648.8 cm/sec2 Ao max P.3 mmHg MV V2 mean: 59.4 cm/sec Ao V2 mean: 100.9 cm/sec MV mean P.6 mmHg Ao mean P.4 mmHg MV V2 VTI: 17.9 cm Ao V2 VTI: 26.5 cm AV (velocity ratio): 0.71 LV V1 max: 115.7 cm/sec PA V2 max: 119.6 cm/sec LV V1 max P.4 mmHg PA V2 mean: 85.3 cm/sec LV V1 mean P.1 mmHg LV V1 mean: 83.5 cm/sec LV V1 VTI: 18.7 cm ECHO/Echo Complete Interpretation Summary Normal LV size. Left ventricular systolic function is normal. The left ventricular ejection fraction is 70 %. Stage 2 diastolic dysfunction. Ordering Physician: Jaqui Carey Referring Physician: Danny Herrera Performed By: Chichi Giron and Student 05/24/24 1742 Date Rufino Velez MD CC: Dr. Danny Herrera MD; Dr. Jaqui Carey DO; Dr. Conchita Ding MD Date Dictated: 05/24/24 1435 Date Transcribed: 05/24/24 1742 Memorial Counselor: Signed Normal [facility] Emergency Department Summary on 05-23-[address] [facility] Medical Records Department [address] [place] [address] Emergency Department Summary 05/23/24 MR#: [id number] Acct: [id number] Name: MILIND DAWSON Rep #: [id number] : 1955 69 From: Fabrizio Shafer DO PCP: Dr. Danny Herrera MD Status:ADM IN Location: [place] [address] HPI History of Present Illness Chief Complaint: Stroke Alert Informant: patient, spouse/S.O. and EMS Narrative Narrative: Patient is a 69-year-old female with history of of type 2 diabetes arthritis and hypertension. According to family she sleeps in a recliner secondary to her arthritis and is not very mobile secondary to it as well. states that the patient went to bed around 9 PM and that was her last known well. He states that she was sleeping out of the recliner and he was in the other room when he heard her start to gargle. He states he went out to check on her because of this abnormal sound and did not when is any type of seizure-like activity but the patient was unresponsive and he could not wake her up despite saying her name and trying to shake her. Secondary to this EMS was called. EMS states when they arrived the patient's eyes were open but she was not responding and she appeared to have right sided facial droop and right sided weakness. Family states that the patient has not been on any type of new medication and prior to this morning's event has been at her baseline [facility] Medical History (Updated 05/23/24 @ 07:[address] Fabrizio Shafer DO) Hyperlipidemia Type 2 diabetes mellitus Blood glucose elevated Preventative health care Acute pain of both ears Tachycardia Impacted cerumen, right ear Health care maintenance Anemia Osteoporosis Psoriatic arthritis Arthritis History of seizures Hypertension Home Medications ???Medication ???Instructions ???Recorded ???Last Taken ???Type acetaminophen 325 mg tablet 650 mg (2 x 325 mg) PO Q4H PRN PRN 09/08/17 Unknown Rx Headache/Temp>99F secukinumab 150 mg/mL subcutaneous 300 mg subcut Q4W 12/25/21 Unknown History syringe (Cosentyx) lisinopril 30 mg tablet See Rx Instructions .Route 01/19/24 Unknown Rx .COMPLEX #90 tabs prednisone 5 mg tablet See Rx Instructions .Route 01/19/24 Unknown Rx .COMPLEX #90 tabs Allergy/AdvReac Type Severity Reaction Status Date / Time tramadol Allergy Severe seizures Verified 05/23/24 06:56 adalimumab (From Humira) Allergy Unknown unknown Verified 05/23/24 06:56 apremilast (From Otezla) Allergy Unknown unknown Verified 05/23/24 06:56 infliximab (From Remicade) Allergy Unknown unknown Verified 05/23/24 06:56 infliximab-dyyb (From AdvReac Unknown unknown Verified 05/23/24 06:56 Inflectra) leflunomide (From Arava) AdvReac Other Verified 05/23/24 06:56 methotrexate (Methotrexate) AdvReac Other Verified 05/23/24 06:56 sulfasalazine (Sulfasalazine) AdvReac Other Verified 05/23/24 06:56 Family History Father Myocardial infarction Surgical History (Updated 05/03/24 @ 08:13 by Marilee Johnson MA) S/P foot surgery History of cataract surgery Social History Smoking Status: Never smoker alcohol intake: never substance use type: does not use what type of physical activity do you participate in: none ROS ROS ED Constitutional Constitutional ED: Denies chills or fever(s) Eyes Eyes: Denies change in vision ENT ENT ED: Denies sore throat Cardiovascular Cardiovascular: Denies chest pain or palpitations Respiratory/Chest Respiratory/Chest: Denies cough or dyspnea Gastrointestinal Gastrointestinal: Denies abdominal pain, diarrhea, nausea or vomiting Genitourinary Genitourinary ED: Denies dysuria Musculoskeletal Musculoskeletal: Reports back pain and myalgias Integumentary Denies rash Neurologic Neurologic: Denies headache(s) Hematologic/Lymphatic Hematologic/Lymphatic: Denies easy bleeding or easy bruising EXAM Physical Exam Const Vital Signs: 05/23/24 06:28 05/23/24 06:28 05/23/24 06:43 Temperature 98.0 F Temperature Source Temporal Pulse Rate 119 H 111 H Respiratory Rate 20 H 23 H Blood Pressure 154/73 H 139/73 H Blood Pressure Mean 100 95 Pulse Ox 93 97 Oxygen Delivery Method Nasal Cannula Nasal Cannula Nasal Cannula Oxygen Flow Rate (L/min) 2 2 05/23/24 06:51 05/23/24 06:58 Temperature 98.0 F Temperature Source Oral Pulse Rate 111 H 111 H Respiratory Rate 20 H 18 Blood Pressure 154/73 H 148/76 H Blood Pressure Mean 100 100 Pulse Ox 93 93 Oxygen Delivery Method Room Air Nasal Cannula Oxygen Flow Rate (L/min) 2 Positive well nourished and well developed General Appearance ED: (more content not included)... Normal [facility] Foot 2 Viewson 05-23-2024 Foot 2 Views [facility] Imaging Services [address] [place], [place] [address] Foot 2 Views MR#: [id number] Acct: [id number] Name: MILIND DAWSON Rep #: [id number] : 1955 F 69 From: Nikita Goodman MD PCP: Dr. Danny Herrera MD Status: ADM IN Study: Foot 2 Views Date of Exam: 05/23/24 Exam# [id number] Ordering Dr: Jaqui Carey DO [id number] STUDY: X-RAY - LEFT FOOT CLINICAL: Female, 69 years old. Left heel ulcer TECHNIQUE: 2 view(s) of the foot. COMPARISON: None. FINDINGS: The bones are diffusely demineralized. Degenerative arthrosis noted at all visualized joint spaces. No subchondral erosions at the joint spaces. No demonstrated fracture or suspicious osseous lesion. There is generalized soft tissue swelling and evidence of subcutaneous emphysema volar to the calcaneus consistent with an ulcer, but there is no evidence of cortical irregularity or breakthrough in the calcaneus. RAD/Foot 2 Views IMPRESSION: Subcutaneous emphysema volar to the calcaneus consistent with a ulcer but there is no evidence of erosive lesion in the calcaneus. Osteopenia with polyarticular arthrosis No demonstrated fracture or suspicious osseous lesion Electronically Signed: Rip Goodman MD at 9:44 EDT , CC: Dr. Danny Herrera MD; Dr. Jaqui Carey DO Memorial Counselor: Signed Normal [facility] H AND P Exam - Hospitaliston 05-23-2024 H&P Exam - Hospitalist [facility] Medical Records Department [address] [place] [address] H P Exam - Hospitalist 05/23/24 0731 MR#: [id number] Acct: [id number] Name: MILIND DAWSON Rep #: [id number] : 1955 69 From: Jaqui Carey DO PCP: Dr. Danny Herrera MD Status:ADM IN Location: [place] [address] HPI - General General Date of Admission: 05/23/24 Date of Service: 05/23/24 Chief Complaint: altered MS/R facial droop and R sided weakness HPI Narrative MILIND DAWSON, is a 69 F who presented to the emergency department at [facility] early on the a.m. of 05/23/2024 after experiencing an episode of altered mental status with rapidly resolving right-sided weakness and right facial droop. Patient does have a previous history of of seizure disorder with first seizure being in 2018. This was attributed to Ultram use. She had 2 other events both were here after she had a stress test so they were attributed to medication involved with her stress test at that time. She was placed on an AED with Keppra for about a year after that event and this was discontinued subsequently by neurology as she had no further events and they felt that they were induced by the above. Today, the stated that he had gotten up early and heard noises coming from the the area where she sleeps. She does sleep sitting up in a chair. He initially thought it was snoring but then realized it sounded like gurgling and he rushed in to check on her. At that time, she was altered mentally and slowly became more arousable but remained confused. Her daughter stated on her arrival she was awake but it was almost like no one was home. Her son indicated this was very similar to previously after she had had seizures. No one observed any generalized tonic-clonic movements as the event itself seems to be unwitnessed. When EMS arrived she was also becoming more arousable but was noted to have some right facial droop and right sided weakness. She does have considerable weakness at baseline due to psoriatic arthritis and is fairly not mobile at baseline. By the time she arrived her strength was back to baseline and her facial droop had resolved. Vital signs on presentation showed a temperature of 98, heart rate 118, blood pressure was 154/73, respiratory was 20 and pulse ox was 93% on 3 L nasal cannula. Patient does not typically wear oxygen at baseline. CBC showed a normal white count with a mild stable anemia with a hemoglobin of 11.8 and no left shift but she does have lymphocytosis. Coags were normal. Chemistry panel was overtly unremarkable other than hyperglycemia with a blood sugar of 173. Hemoglobin A1c was performed and found to be 7.2. With concern for stroke we obtained a lipid panel with total cholesterol of 268/LDL of 173/HDL 54 and triglycerides of 207. TSH is within normal limits 2.47. EKG was normal sinus rhythm without any ST-T wave changes concerning for acute ischemia and only mild prolonged QTc at less than 500. CT of the brain was unremarkable for any acute finding. CTA of the head and neck showed only mild atherosclerotic disease of bilateral carotid arteries as well as a 1.5 cm heterogeneous nodule of the thyroid. Chest x-ray is performed and showed hyperexpansion is compatible with COPD however upon my individual review was questionable for a right lower lobe infiltrate. She does have a wound that has been being evaluated on her left foot so we did get an x-ray because there is a lot of superficial callus and imaging showed subcutaneous emphysema volar to the calcaneus consistent with an ulcer but no evidence of erosive lesion in the calcaneus, osteopenia but no fracture or suspicious lesion. [facility] Medical History Hyperlipidemia Type 2 diabetes mellitus Blood glucose elevated Preventative health care Acute pain of both ears Tachycardia Impacted cerumen, right ear Health care maintenance Anemia Osteoporosis Psoriatic arthritis Arthritis History of seizures Hypertension Home Medications ???Medication ???Instructions ???Recorded ???Last Taken ???Type acetaminophen 325 mg tablet 650 mg (2 x 325 mg) PO Q4H PRN PRN 09/08/17 Unknown Rx Headache/Temp>99F secukinumab 150 mg/mL subcutaneous 300 mg subcut Q4W 12/25/21 Unknown History syringe (Cosentyx) lisinopril 30 mg tablet See Rx Instructions .Route 01/19/24 Unknown Rx .COMPLEX #90 tabs prednisone 5 mg tablet See Rx Instructions .Route 01/19/24 Unknown Rx .COMPLEX #90 tabs Allergy/AdvReac Type Severity Reaction Status Date / Time tramadol Allergy Severe seizures Verified 05/23/24 06:56 adalimumab (From Humira) Allergy Unknown unknown Verified 05/23/24 06:56 apremilast (From Otezla) Allergy Unknown unknown Verified 05/23/24 06:56 infliximab (From Remicade) Allergy Unknown unknown Ve (more content not included)... Normal [facility] Hemoglobin A1con 05-23-2024 HbA1c (Bld) [Mass fraction] 7.2 % High 3.8-5.6 [facility] Comment on above: Result Comment: Norm al < 5.7 % Prediabetic 5.7 - 6.4 % Diabetic >or= 6.5 % Please note range changes. Performed By: #### L 300.4310, L100.0100, L500.2500, L300.3900, L500.4100 #### [facility] [address] [place], [address] Legionella Antigen Urineon 1 LEGU URINE, RANDOM Legionella Antigen result interpretation: L pneumo Ag Ur Ql Negative Presumptive negative for Legionella pneumophila serogroup 1 antigen in urine, suggesting no recent or current infection. Legionella Ag, Urine Negative (See interpretation below) Normal [facility] Comment on above: Performed By: #### L 300.4310, L100.0100, L500.2500, L300.3900, L500.4100 #### [facility] [address] [place], [address] Lipid Profileon 05-23-2024 Cholesterol [Mass/Vol] 268 mg/dL High 200 [facility] Comment on above: Result Comment: <200 mg/dL Desirable 200-240 mg/dL Borderline >240 mg/dL High Risk Performed By: #### L 300.4310, L100.0100, L500.2500, L300.3900, L500.4100 #### [facility] [address] [place], [address] Cholesterol in HDL [Mass/Vol] 54 mg/dL Normal [facility] Comment on above: Result Comment: The drugs N-Acetylcysteine and Metamizole may falsely depress this assay. Reference Range HDL <40 mg/dL Low HDL Cholesterol HDL >or= 60 mg/dL High HDL Cholesterol Performed By: #### L 300.4310, L100.0100, L500.2500, L300.3900, L500.4100 #### [facility] [address] [place], [address] Cholesterol in LDL [Mass/Vol] 173 mg/dL High 0-130 [facility] Comment on above: Performed By: #### L 300.4310, L100.0100, L500.2500, L300.3900, L500.4100 #### [facility] [address] [place], [address] Cholesterol in VLDL [Mass/Vol] 41 mg/dL High 5-40 [facility] Comment on above: Performed By: #### L 300.4310, L100.0100, L500.2500, L300.3900, L500.4100 #### [facility] [address] [place], [address] Triglyceride [Mass/Vol] 207 mg/dL High W [facility] Comment on above: Result Comment: The drugs N-Acetylcysteine and Metamizole may falsely depress this assay. Serum Triglycerides Reference Interval Normal <150 mg/dL Borderline high 150 - 199 mg/dL High 200 - 499 mg/dL Very High > or = 500 mg/dL Performed By: #### L 300.4310, L100.0100, L500.2500, L300.3900, L500.4100 #### [facility] [address] [place], [address] M100.678on 05-23-2024 M100.678 Pending SARS-CoV-2 (COVID 19) Negative INFLUENZA A Negative INFLUENZA B Negative RSV PCR Negative Normal [facility] Comment on above: Performed By: #### M 100.678 ####[facility] [address] [place], [address] MR/CON.PCM.NEon 05-23-2024 MR/CON.PCM.NE [facility] Medical Records Department [address] [place] [address] Consultation - Neurology 05/23/242018 MR#: [id number] Acct: [id number] Name: MILIND DAWSON Rep #: [id number] : 1955 69 From: Hardeep Helms MD PCP: Dr. Danny Herrera MD Status:ADM IN Location: [place] [address] Assessment and Plan: Neuro Assessment/Plan MILIND DAWSON is a 69 F with a past medical history of seizure, being evaluated by Teleneurology for episode of altered mental status and right sided facial droop and weakness. We doubt TIA or stroke here though MRI is appropriate and should be obtrained her before discharge, along with EEG - could also offer insight into etiology if this was in fact a seizure. We cannot be certain this was a seizure, but the ictal grunt/cry, the post-ictal confusion, the history of seizures all point in this direction. If this was a seizure we cannot call it a breakthrough (she was not on an AED) but she certainly would meet criteria for epilepsy or seizure disorder at this point. Seizure could have been precipitated by a minor infection or metabolic derangement. REgardless of etiology, she shoudl re-establish care with a local neurologist and should be on a broad spectrum ASD till then: topiramate is not the most common choice but given her difficulty tolerating keppra in the past and given her very significant biologic/immunosuppres zaki regimen, topiramate is a reasonable choice, especially since there is no acute need to load her - she has returned to baseline and was never in status. Topiramate can be uptitrated until she sees outpatient neurologist. We will review MRI and EEG results tomorrow - barring significant findings there she can be discharged with outpatient follow up. Diagnosis: seizure disorder Plan: - amb referral to local neurologist to establish care - increase topiramate to 50 mg BID after 1 week, then 75 mg BID after 1 week, then 100 mg BID after 1 week - MRI inpatient as ordered I personally attended this patient and spent a total time of 40 minutes evaluating this patient including clinical assessment, review of chart, medical history imaging, and determining appropriate treatment and workup. Hardeep Helms MD [facility] Teleneurology HPI Consult Data Date of Consult: 05/23/24 HPI Narrative HPI Narrative: MILIND DAWSON, is a 69 F who presents after episode of altered mental status with brief RS weakness and facial droop. She has in the past been diagnosed with seizure and treated for seizure disorder with Keppra for a year (she had significant mood problems with this, a known Keppra SE) but this was discontinued by Neurology and she has for years been off Keppra with no seizure recurrence and blames seizures 2 and 3 on medical interventions, allowing only that her initial seizure may have been unprompted (she does not believe the tramadol caused it, though I note this is a well- established SE of tramadol). In this context, in the early AM of 05/23/2024: She remembers none of the event, just waking up in the hospital. However, provides history: She was sleeping in her chair (as usual) when noted strange noises from her. He checked on her and noted she was altered and difficult to arouse. Per chart, EMS noted facial droop - patient and family are both skeptical that this was significant. We do note significant pain limitating in upper extreity movement due to psoriatic arthritis. Given resolution of deficits she was a not a candidate for acute stroke intervention. MRI Brain was ordered, and will be completed 03/24. EEG was ordered and was completed 05/23 (read pending). She feels back to herself. She had already been placed on topiramate 25 mg BID when I met her - I do note that many common broad spectrum ASDs would not be compatible with her regimen of psoriatic arthritis biologicals and immunosuppressants. [facility] Medical History Hyperlipidemia Type 2 diabetes mellitus Blood glucose elevated Preventative health care Acute pain of both ears Tachycardia Impacted cerumen, right ear Health care maintenance Anemia Osteoporosis Psoriatic arthritis Arthritis History of seizures Hypertension Home Medications ???Medication ???Instructions ???Recorded ???Last Taken ???Type acetaminophen 325 mg tablet 650 mg (2 x 325 mg) PO Q4H PRN PRN 09/08/17 Unknown Rx Headache/Temp>99F secukinumab 150 mg/mL subcutaneous 300 mg subcut Q4W 12/25/21 Unknown History syringe (Cosentyx) lisinopril 30 mg tablet See Rx Instructions .Route 01/19/24 Unknown Rx .COMPLEX #90 tabs prednisone 5 mg tablet See Rx Instructions .Route 01/19/24 Unknown Rx .COMPLEX #90 tabs Allergy/AdvReac Type Severity Reaction Status Date / Time tramadol A (more content not included)... Normal [facility] Magnesiumon 05-23-2024 Magnesium [Mass/Vol] 2.2 mg/dL Normal 1.6-2.6 [facility] Comment on above: Performed By: #### L 300.4310, L100.0100, L500.2500, L300.3900, L500.4100 #### [facility] [address] [place], [address] Partial Thromboplast Timeon 05-23-2024 aPTT Coag (Bld) [Time] 25.5 s Normal 24.1-36.2 [facility] Comment on above: Performed By: #### L 300.4310, L100.0100, L500.2500, L300.3900, L500.4100 #### [facility] [address] [place], [address] Prothrombin Time w/INRon INR Coag (PPP) [Relative time] 1.0 {INR} Normal [facility] Comment on above: Performed By: #### L 300.4310, L100.0100, L500.2500, L300.3900, L500.4100 #### [facility] [address] [place], [address] PT Coag (PPP) [Time] 13.0 s Normal 11.7-14.9 [facility] Comment on above: Performed By: #### L 300.4310, L100.0100, L500.2500, L300.3900, L500.4100 #### [facility] [address] [place], [address] STROKE Brain/Head without Co nton 05-23-2024 STROKE Brain/Head without Cont [facility] Imaging Services [address] [place] [address] STROKE Brain/Head without Cont MR#: [id number] Acct: [id number] Name: MILIND DAWSON Rep #: [id number] : 1955 F 69 From: Fabien Pantoja MD PCP: Dr. Danny Herrera MD Status: REG ER Study: STROKE Brain/Head without Cont Date of Exam: Exam# [id number] Ordering Dr: Fabrizio Shafer DO ADDENDUM by Dr. Fabien Pantoja MD on 05/23/24 at 0645 [id number] INDICATION: Neuro deficit, acute, stroke suspected EXAMINATION: CT BRAIN - CT Head Stroke Protocol W/O Contrast Injection TECHNIQUE: Multiple axial images were obtained of the head without intravenous contrast. A radiation dose optimization technique was used for this scan. IV Contrast dosage and agent: None. COMPARISON: September 06, 2017 FINDINGS: BRAIN PARENCHYMA: No intra- or extra-axial hemorrhage. No evidence of acute infarct. No intracranial mass or mass effect. Unremarkable white matter for age. There is preservation of the alcala/white matter interface. Posterior fossa structures are unremarkable. CSF SPACES: Cerebral volume appropriate for age. No hydrocephalus. Basal cisterns are patent. CALVARIUM, SKULL BASE, PARANASAL SINUSES AND MASTOID AIR CELLS: No acute osseous finding. Paransasal sinuses are clear. Mastoid air cells are clear. ORBITS: Both globes, extraocular muscles, optic nerves and retrobulbar fat appear unremarkable. ASPECTS Score for Acute Strokes: 05/23/24 0645 Date cc: Dr. Danny Herrera MD; Fabrizio Shafer DO * Signed ADDENDUM by Dr. Fabien Pantoja MD on 05/23/[address]/STROKE Brain/Head without Cont IMPRESSION: No CT evidence of acute intracranial hemorrhage or injury N.B. : The above Results were Read Back by Fabien Pantoja MD to Fabrizio Shafer DO, and understanding confirmed on 05/23/2024 06:47:48 (ET). Electronically Signed: Fabien Pantoja MD at 6:45 EDT , 05/23/24 0654 Date cc: Dr. Danny Herrera MD; Fabrizio Shafer DO * Signed We are attempting to reach an attending provider to discuss findings. An addendum with communication details will be sent when the communication is complete. [id number] INDICATION: Neuro deficit, acute, stroke suspected EXAMINATION: CT BRAIN - CT Head Stroke Protocol W/O Contrast Injection TECHNIQUE: Multiple axial images were obtained of the head without intravenous contrast. A radiation dose optimization technique was used for this scan. IV Contrast dosage and agent: None. COMPARISON: September 06, 2017 FINDINGS: BRAIN PARENCHYMA: No intra- or extra-axial hemorrhage. No evidence of acute infarct. No intracranial mass or mass effect. Unremarkable white matter for age. There is preservation of the alcala/white matter interface. Posterior fossa structures are unremarkable. CSF SPACES: Cerebral volume appropriate for age. No hydrocephalus. Basal cisterns are patent. CALVARIUM, SKULL BASE, PARANASAL SINUSES AND MASTOID AIR CELLS: No acute osseous finding. Paransasal sinuses are clear. Mastoid air cells are clear. ORBITS: Both globes, extraocular muscles, optic nerves and retrobulbar fat appear unremarkable. ASPECTS Score for Acute Strokes: 10 CT/STROKE Brain/Head without Cont IMPRESSION: No CT evidence of acute intracranial hemorrhage or injury Electronically Signed: Fabien Pantoja MD at 6:45 EDT Reading Location ID and State: [facility] / [place] Tel , Service support , CC: Dr. Danny Herrera MD; Fabrizio Shafer DO Memorial Counselor: Signed Normal [facility] STROKE CTA Head AND Neck W/C onon 05-23-2024 STROKE CTA Head AND Neck W/Con [facility] Imaging Services [address] [place] [address] STROKE CTA Head AND Neck W/Con MR#: [id number] Acct: [id number] Name: MILIND DAWSON Rep #: [id number] : 1955 F 69 From: Fabien Pantoja MD PCP: Dr. Danny Herrera MD Status: REG ER Study: STROKE CTA Head AND Neck W/Con Date of Exam: Exam# [id number] Ordering Dr: Fabrizio Shafer DO ADDENDUM by Dr. Fabien Pantoja MD on 05/23/24 at 0701 [id number] INDICATION: Neuro deficit, acute, stroke suspected EXAMINATION: CTA CAROTIDS AND BRAIN - CTA Head and Neck Stroke W/ Contrast (and W/O if performed) TECHNIQUE: Routine CTA of the head and neck was performed with post processing of the angiographic images for volumetric reconstructions. In addition, images were obtained of the [place] of [place]. Nascet criteria using the distal ICAs for comparison were used for evaluation of stenoses. 3D reconstructions were reviewed. A radiation dose optimization technique was used for this scan. IV Contrast dosage and agent: 100 mL [id number] COMPARISON: MRA neck September 05, 2017. FINDINGS: --NECK: AORTIC ARCH AND BRANCHES: Normal anatomy, patent. RIGHT CCA: No occlusion, significant stenosis or dissection. RIGHT ICA: Carotid bifurcation atherosclerosis with less than 50% stenosis. No occlusion or dissection. LEFT CCA: No occlusion, significant stenosis or dissection. LEFT ICA: Carotid bifurcation atherosclerosis without flow-limiting stenosis. No occlusion or dissection. RIGHT VERTEBRAL ARTERY: No occlusion, significant stenosis or dissection. LEFT VERTEBRAL ARTERY: No occlusion, significant stenosis or dissection. NECK SOFT TISSUES: Left thyroid 1.5 cm heterogeneous nodule.. LUNG APICES: Clear. BONES: Unremarkable. --HEAD: --Anterior circulation: ICAs: Minimal bilateral cavernous carotid atherosclerosis. No significant stenosis at the intracranial/visualize d segments. ACAs: No significant stenosis at the visualized segments. ACOM: Present. MCAs: No significant stenosis at the visualized segments. --Posterior circulation: PCOMs: Intact on the left. senior sales associate: No significant stenosis at the visualized segments. BASILAR ARTERY: No significant stenosis. VERTEBRAL ARTERIES: No significant stenosis at the intradural/visualized segments. No evidence of intracranial aneurysm or vascular malformation. 05/23/24 0701 Date cc: Dr. Danny Herrera MD; Fabrizio Shafer DO * Signed ADDENDUM by Dr. Fabien Pantoja MD on 05/23/[address]/STROKE CTA Head AND Neck W/Con IMPRESSION: Mild atherosclerosis most prominent at the cervical carotid bifurcations without evidence of cervical or proximal intracranial vascular occlusion or focal flow-limiting stenosis. Left thyroid 1.5 cm heterogeneous nodule. Ultrasound characterization is recommended when clinically able. N.B. : The above Results were Read Back by Fabien Pantoja MD to Fabrizio Shafer DO, and understanding confirmed on 05/23/2024 07:00:15 (ET). Electronically Signed: Fabien Pantoja MD at 7:01 EDT , 05/23/24 0708 Date cc: Dr. Danny Herrera MD; Fabrizio Shafer DO * Signed [id number] INDICATION: Neuro deficit, acute, stroke suspected EXAMINATION: CTA CAROTIDS AND BRAIN - CTA Head and Neck Stroke W/ Contrast (and W/O if performed) TECHNIQUE: Routine CTA of the head and neck was performed with post processing of the angiographic images for volumetric reconstructions. In addition, images were obtained of the [place] of [place]. [place] criteria using the distal ICAs for comparison were used for evaluation of stenoses. 3D reconstructions were reviewed. A radiation dose optimization technique was used for this scan. IV Contrast dosage and agent: 100 mL Isovue-370 COMPARISON: MRA neck September 05, 2017. FINDINGS: --NECK: AORTIC ARCH AND BRANCHES: Normal anatomy, patent. RIGHT CCA: No occlusion, significant stenosis or dissection. RIGHT ICA: Carotid bifurcation atherosclerosis with less than 50% stenosis. No occlusion or dissection. LEFT CCA: No occlusion, significant stenosis or dissection. LEFT ICA: Carotid bifurcation atherosclerosis without flow-limiting stenosis. No occlusion or dissection. RIGHT VERTEBRAL ARTERY: No occlusion, significant stenosis or dissection. LEFT VERTEBRAL ARTERY: No occlusion, significant stenosis or dissection. NECK SOFT TISSUES: Left thyroid 1.5 cm heterogeneous nodule.. LUNG APICES: Clear. BONES: Unremarkable. --HEAD: --Ant (more content not included)... Normal [facility] Strep pneumoniae Antig(UR,CS F)on 05-23-2024 STPAG URINE, RANDOM URINE INTERPRETATION Strep pneumoniae Antig(UR,CSF) Strep pneumoniae Antig(UR,CSF) Negative Urine Presumptive negative for pneumococcal pneumonia, suggesting no current or recent pneumococcal infection. Infection due to S pneumoniae cannot be ruled out since the antigen present in the sample may be below the detection limit of the test. Strep pneumo Test Negative URINE (See interpretation below) Normal [facility] Comment on above: Performed By: #### L 300.4310, L100.0100, L500.2500, L300.3900, L500.4100 #### [facility] [address] [place], [place], [address] Thyroid Stim Hormone (TSH)on 05-23-2024 TSH 2.470 uIU/mL Normal 0.358-3.740 [facility] Comment on above: Performed By: #### L 300.4310, L100.0100, L500.2500, L300.3900, L500.4100 #### [facility] [address] [place], [place], [address] Internal Medicine Office Vis iton 05-03-2024 Internal Medicine Office Visit [facility] [address] [place], [place] [address] OFFICE VISIT Date of Service: 05/03/24 MR#: [id number] Acct: [id number] Name: MILIND DAWSON Rep #: [id number] : 1955 Provider: Dr. 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 Is patient in pain?: No Allergies tramadol Allergy (Severe, Verified 05/03/24 08:02) seizures adalimumab (From Humira) Allergy (Unknown, Verified 05/03/24 08:02) unknown apremilast (From Otezla) Allergy (Unknown, Verified 05/03/24 08:02) unknown infliximab (From Remicade) Allergy (Unknown, Verified 05/03/24 08:02) unknown infliximab-dyyb (From Inflectra) Adverse Reaction (Unknown, Verified 05/03/24 08:02) unknown leflunomide (From Arava) Adverse Reaction (Verified 05/03/24 08:02) Other methotrexate (Methotrexate) Adverse Reaction (Verified 05/03/24 08:02) Other sulfasalazine (Sulfasalazine) Adverse Reaction (Verified 05/03/24 08:02) Other Medications ???Medication ???Instructions ???Recorded ???Confirmed ???Type acetaminophen 325 mg tablet 650 mg (2 x 325 mg) PO Q4H PRN PRN 09/08/17 05/03/24 Rx Headache/Temp>99F secukinumab 150 mg/mL subcutaneous 300 mg subcut Q4W 12/25/21 05/03/24 History syringe (Cosentyx) rosuvastatin 5 mg tablet See Rx Instructions .Route 10/29/23 05/03/24 Rx .COMPLEX #90 tabs lisinopril 30 mg tablet See Rx Instructions .Route 01/19/24 05/03/24 Rx .COMPLEX #90 tabs prednisone 5 mg tablet See Rx Instructions .Route 01/19/24 05/03/24 Rx .COMPLEX #90 tabs metformin 750 mg tablet,extended 750 mg PO BID 3 months #180 tabs 05/03/24 05/03/24 Rx release 24 hr Have you fallen in the past year?: No Nurse's Note: Needs refills on prednisone and lisnopril. [facility] Medical History (Updated 05/03/24 @ 08:[address] Danny Herrera MD) Hyperlipidemia Type 2 diabetes mellitus Blood glucose elevated Preventative health care Acute pain of both ears Tachycardia Impacted cerumen, right ear Health care maintenance Anemia Osteoporosis Psoriatic arthritis Arthritis History of seizures Hypertension Surgical History (Updated 05/03/24 @ 08:13 by Marilee Johnson MA) S/P foot surgery History of cataract surgery Family History Father Myocardial infarction Social History Smoking Status: Never smoker alcohol intake: never substance use type: does not use what type of physical activity do you participate in: none HPI HPI Chief Complaint: Follow-up chronic conditions Details: MILIND DAWSON, is a 69 F who presents to the office today for follow-up of her chronic medical conditions. No acute concerns at this time. History of diabetes mellitus type 2 currently on metformin. A1c down very slightly from 7.3-7.2. Currently on metformin however, she states that she quit taking it about a month ago when she started seeing podiatry for left foot wound. She states that she is tried to pay attention to her diet. No concerns for hypoglycemia History of hyperlipidemia, last LDL at 181. Currently on rosuvastatin and as above, she states that she has tried to make some lifestyle and dietary changes. History of hypertension, blood pressure today at 152/82. Typically reports better readings at home. No chest pain, palpitation or shortness of breath. Other chronic conditions are stable. ROS Const Constitutional: No body ache, chills, excessive sweating, fatigue, fever(s), frequent falls, headache(s), snoring, weakness, sleep problems or change in appetite Eyes Eyes: No blurry vision, change in vision, vision loss, dry eyes, bulging eyes, eye pain or Light sensitivity ENT ENT: No abnormal hearing, ear or mastoid pain, tinnitus, balance problems, nosebleed/epistaxis, nasal congestion, headache(s), neck pain or sore throat Resp Respiratory: No cough, excessive phlegm production, pain on inspiration, shortness of breath, snoring or wheezing Cardio Cardiology: No chest pain at rest, chest pain with exertion, excessive sweating, shortness of breath, dyspnea on exertion, lightheadedness, orthopnea or palpitations Gastro GI: No abdominal pain, change in bowel habits, const (more content not included)... Normal [facility] Decalcification bone/plaqueo n 03-24-2024 Decalcification bone/plaque ---- Patient Age/Sex Location Account Attending Physician ---- MILIND DAWSON 68/F LABSPEC [id number] Dr. Marilee Curtis DPM ---- Specimen: [id number] Received: 03/24/24 Status: ZOIE Madelin Num: [id number] Spec Type: Lesion Subm Dr: Dr. Marilee Curtis DPM HEADER OPERATION: Skin biopsy evaluation PRE-OP DIAGNOSIS: Skin biopsy TISSUE SUBMITTED: Left heel ---- MICROSCOPIC DIAGNOSIS Left heel skin, biopsy: Consistent with fragments of verruca vulgaris /plantaris. Negative for malignancy. SJ/mr 03/31/2024 COMMENT Correlation with clinical findings and appropriate follow up are necessary. Case has been reviewed in consultation with Dr. Woodard who concurs with the above diagnosis. IDC:AM MICROSCOPIC DESCRIPTION Slides are reviewed. GROSS DESCRIPTION Received in fixative is one container labeled with the patient's name and designated Left heel. The specimen consists of multiple fragments of vasquez indurated skin, soft tissue, and possible bone measuring in aggregate 2.2 x 2.0 x 0.3cm. The entire specimen is submitted in one cassette after decalcification. 03/25/2024 TC:5 CPT:45604 ---- Patient Age/Sex Location Account Attending Physician ---- MILIND DAWSON 68/F LABSPEC [id number] Dr. Marilee Curtis DPM ---- Signed (signature on file) Dr. Dedrick Huggins MD 03/31/24 1303 ---- Normal [facility] Comment on above: Performed By: #### L 300.4310, L100.0100, L500.2500, L300.3900, L500.4100 #### [facility] [address] [place], [address] CBC W/Diff, Automatedon 07-3 -2023 Absolute Lymph 1.68 X10 3/uL Normal 0.83-4.51 [facility] Comment on above: Performed By: #### L 300.4310, L100.0100, L500.2500, L300.3900, L500.4100 #### [facility] [address] [place], [address] Absolute Neut 6.5 X10 3/uL Normal 2.0-7.7 [facility] Comment on above: Performed By: #### L 300.4310, L100.0100, L500.2500, L300.3900, L500.4100 #### [facility] [address] [place], [address] Basophils/100 WBC (Bld) 0.2 % Normal 0-[address] [facility] Comment on above: Performed By: #### L 300.4310, L100.0100, L500.2500, L300.3900, L500.4100 #### [facility] [address] [place], [address] Eosinophils/100 WBC (Bld) 1.1 % Normal 0-5 [facility] Comment on above: Performed By: #### L 300.4310, L100.0100, L500.2500, L300.3900, L500.4100 #### [facility] [address] [place], [address] Erythrocyte distribution width (RBC) [Ratio] 13.8 % Normal 11.6-14.6 [facility] Comment on above: Performed By: #### L 300.4310, L100.0100, L500.2500, L300.3900, L500.4100 #### [facility] [address] [place], [address] Hematocrit (Bld) [Volume fraction] 37.6 % Normal 37-47 [facility] Comment on above: Performed By: #### L 300.4310, L100.0100, L500.2500, L300.3900, L500.4100 #### [facility] [address] [place], [address] Hemoglobin (Bld) [Mass/Vol] 11.8 g/dL Low 12.0-15.0 [facility] Comment on above: Performed By: #### L 300.4310, L100.0100, L500.2500, L300.3900, L500.4100 #### [facility] [address] [place], [address] IG% 0.200 Normal 0.0-0.9 [facility] Comment on above: Result Comment: IG% - Immature Granulocytes (promyelocytes, myelocytes and metamyelocytes) > 1% indicates that a LEFT SHIFT is Present. Performed By: #### L 300.4310, L100.0100, L500.2500, L300.3900, L500.4100 #### [facility] [address] [place], [address] Lymphocytes/100 WBC (Bld) 19.0 % Normal 19-41 [facility] Comment on above: Performed By: #### L 300.4310, L100.0100, L500.2500, L300.3900, L500.4100 #### [facility] [address] [place], [address] MCH (RBC) [Entitic mass] 29.1 pg Normal 27.0-32.0 [facility] Comment on above: Performed By: #### L 300.4310, L100.0100, L500.2500, L300.3900, L500.4100 #### [facility] [address] [place], [address] MCHC (RBC) [Mass/Vol] 31.4 g/dL Low 32-36 [facility] Comment on above: Performed By: #### L 300.4310, L100.0100, L500.2500, L300.3900, L500.4100 #### [facility] [address] [place], [address] MCV (RBC) [Entitic vol] 92.8 fL Normal 81-[address] [facility] Comment on above: Performed By: #### L 300.4310, L100.0100, L500.2500, L300.3900, L500.4100 #### [facility] [address] [place], [address] Monocytes/100 WBC (Bld) 5.9 % Normal 0-10 [facility] Comment on above: Performed By: #### L 300.4310, L100.0100, L500.2500, L300.3900, L500.4100 #### [facility] [address] [place], [address] Neutrophils/100 WBC (Bld) 73.6 % High 47-70 [facility] Comment on above: Performed By: #### L 300.4310, L100.0100, L500.2500, L300.3900, L500.4100 #### [facility] [address] [place], [address] Nucleated RBC (Bld) [#/Vol] 0 10*3/uL Normal 0-5 [facility] Comment on above: Performed By: #### L 300.4310, L100.0100, L500.2500, L300.3900, L500.4100 #### [facility] [address] [place], [address] Platelet mean volume (Bld) [Entitic vol] 10.3 fL Normal 6.2-12.0 [facility] Comment on above: Performed By: #### L 300.4310, L100.0100, L500.2500, L300.3900, L500.4100 #### [facility] [address] [place], [address] Platelets (Bld) [#/Vol] 351 10*3/uL Normal 150-450 [facility] Comment on above: Performed By: #### L 300.4310, L100.0100, L500.2500, L300.3900, L500.4100 #### [facility] [address] [place], [address] RBC (Bld) [#/Vol] 4.05 10*6/uL Low 4.2-5.4 [facility] Comment on above: Performed By: #### L 300.4310, L100.0100, L500.2500, L300.3900, L500.4100 #### [facility] [address] [place], [address] RDW SD 46.9 fl High 35.1-43.9 [facility] Comment on above: Performed By: #### L 300.4310, L100.0100, L500.2500, L300.3900, L500.4100 #### [facility] [address] [place], [address] WBC (Bld) [#/Vol] 8.8 10*3/uL Normal 4.4-11.0 [facility] Comment on above: Performed By: #### L 300.4310, L100.0100, L500.2500, L300.3900, L500.4100 #### [facility] [address] [place], [address] CRPon 03-10-2024 C-REACTIVE PROT < 2.90 Normal 0.0-3.0 [facility] Comment on above: Result Comment: C-Re active Protein (CRP) provides useful information for the diagnosis, therapy and monitoring of inflammatory processes and associated diseases. For the evaluation of Relative Risk for Cardiovascular Disease, a High Sensitivity CRP (HSCRP) should be ordered. Performed By: #### L 300.4310, L100.0100, L500.2500, L300.3900, L500.4100 #### [facility] [address] [place], [address] Comprehensive Metabolic Prof ilon 03-10-2024 Albumin [Mass/Vol] 3.7 g/dL Normal 3.2-5.0 [facility] Comment on above: Performed By: #### L 300.4310, L100.0100, L500.2500, L300.3900, L500.4100 #### [facility] [address] [place], [address] Albumin/Globulin [Mass ratio] 0.9 {ratio} Normal 0.9-2.4 [facility] Comment on above: Performed By: #### L 300.4310, L100.0100, L500.2500, L300.3900, L500.4100 #### [facility] [address] [place], [address] ALK P 78 U/L Normal 45-117 [facility] Comment on above: Performed By: #### L 300.4310, L100.0100, L500.2500, L300.3900, L500.4100 #### [facility] [address] [place], [address] ALT [Catalytic activity/Vol] 23 U/L Normal 13-56 [facility] Comment on above: Performed By: #### L 300.4310, L100.0100, L500.2500, L300.3900, L500.4100 #### [facility] [address] [place], [address] AST [Catalytic activity/Vol] 13 U/L Low 15-37 [facility] Comment on above: Performed By: #### L 300.4310, L100.0100, L500.2500, L300.3900, L500.4100 #### [facility] [address] [place], [address] Bilirubin [Mass/Vol] 0.30 mg/dL Normal 0.20-1.00 [facility] Comment on above: Result Comment: For patients on eltrombopag therapy, use of Dimension [place] TBIL is not recommended. Performed By: #### L 300.4310, L100.0100, L500.2500, L300.3900, L500.4100 #### [facility] [address] [place], [address] BUN/CRE 34.4 RATIO High 10-20 [facility] Comment on above: Performed By: #### L 300.4310, L100.0100, L500.2500, L300.3900, L500.4100 #### [facility] [address] [place], [address] CA,Total 9.6 mg/dL Normal 8.5-10.1 [facility] Comment on above: Performed By: #### L 300.4310, L100.0100, L500.2500, L300.3900, L500.4100 #### [facility] [address] [place], [address] Chloride [Moles/Vol] 108 mmol/L High 98-107 [facility] Comment on above: Performed By: #### L 300.4310, L100.0100, L500.2500, L300.3900, L500.4100 #### [facility] [address] [place], [address] CO2 [Moles/Vol] 23.0 mmol/L Normal 21.0-32.0 [facility] Comment on above: Performed By: #### L 300.4310, L100.0100, L500.2500, L300.3900, L500.4100 #### [facility] [address] [place], [address] Creatinine [Mass/Vol] 0.96 mg/dL Normal 0.55-1.02 [facility] Comment on above: Result Comment: The validity of the calculated GFR GFRAA in patients over 70 years has not been determined. Clinical correlation is essential. Performed By: #### L 300.4310, L100.0100, L500.2500, L300.3900, L500.4100 #### [facility] [address] [place], [address] EST GFR - AA 75 mL/min Normal >60 [facility] Comment on above: Result Comment: Afri can [place] GFR Calc Performed By: #### L 300.4310, L100.0100, L500.2500, L300.3900, L500.4100 #### [facility] [address] [place], [address] GAP 8 Normal 5-15 [facility] Comment on above: Performed By: #### L 300.4310, L100.0100, L500.2500, L300.3900, L500.4100 #### [facility] [address] [place], [address] GFR/1.73 sq M.predicted among non-blacks MDRD (S/P/Bld) [Vol rate/Area] 62 mL/min/{1.73_m2} Normal >60 [facility] Comment on above: Result Comment: Non- GFR Calc Performed By: #### L 300.4310, L100.0100, L500.2500, L300.3900, L500.4100 #### [facility] [address] [place], [address] Globulin (S) [Mass/Vol] 4.0 g/dL Normal 2.2-4.2 [facility] Comment on above: Performed By: #### L 300.4310, L100.0100, L500.2500, L300.3900, L500.4100 #### [facility] [address] [place], [address] Glucose [Mass/Vol] 223 mg/dL High 74-106 [facility] Comment on above: Result Comment: Gluc ose result greater than or equal to 200 mg/dL suggests DIABETES MELLITUS per A.D.A. criteria. Performed By: #### L 300.4310, L100.0100, L500.2500, L300.3900, L500.4100 #### [facility] [address] [place], [address] Potassium [Moles/Vol] 4.1 mmol/L Normal 3.5-5.1 [facility] Comment on above: Performed By: #### L 300.4310, L100.0100, L500.2500, L300.3900, L500.4100 #### [facility] [address] [place], [address] Sodium [Moles/Vol] 139 mmol/L Normal 136-145 [facility] Comment on above: Performed By: #### L 300.4310, L100.0100, L500.2500, L300.3900, L500.4100 #### [facility] [address] [place], [address] T PROT 7.7 g/dL Normal 6.4-8.2 [facility] Comment on above: Performed By: #### L 300.4310, L100.0100, L500.2500, L300.3900, L500.4100 #### [facility] [address] [place], [place], [address] Urea nitrogen [Mass/Vol] 33 mg/dL High 7-18 [facility] Comment on above: Performed By: #### L 300.4310, L100.0100, L500.2500, L300.3900, L500.4100 #### [facility] [address] [place], [address] Erythrocyte Sed Rateon 03-10 SED RATE 24 mm/hr Normal 0-30 [facility] Comment on above: Performed By: #### L 300.4310, L100.0100, L500.2500, L300.3900, L500.4100 #### [facility] [address] [place], [address] Absolute lymphocyte countOrd ered By: Danny Herrera on 10-16-2023 Lymphocytes Auto (Unsp spec) [#/Vol] 1.66 10*3/uL 0.83-4.51 [facility] Automated lymphocyte count a s percentage of total leukocytesOrdered By: Danny Herrera on 10-16-2023 Lymphocytes/100 WBC Auto (Unsp spec) 20.6 % 19-41 [facility] Basophil percentageOrdered B y: Danny Herrera on 10-16-2023 Basophils/100 WBC (Bld) 0.2 % 0-[address] [facility] Bilirubin [Mass/Vol] 0.50 mg/dL 0.20-1.00 [facility] Comment on above: For patients on eltr ombopag therapy, use of Dimension [place] TBIL is not recommended. Chloride [Moles/Vol] 110 mmol/L 98-107 [facility] Cholesterol [Mass/Vol] 283 mg/dL <200 [facility] Comment on above: <200 mg/dL Desirable 200-240 mg/dL Borderline >240 mg/dL High Risk Eosinophils/100 WBC (Bld) 1.7 % 0-5 [facility] Glucose [Mass/Vol] 166 mg/dL 74-106 [facility] Comment on above: Fasting Glucose resu lt greater than or equal to 126 mg/dL suggests DIABETES MELLITUS per A.D.A. criteria. Hemoglobin (Bld) [Mass/Vol] 12.3 g/dL 12.0-15.0 [facility] Monocytes/100 WBC (Bld) 6.2 % 0-[address] [facility] Neutrophils (Bld) [#/Vol] 5.7 10*3/uL 2.0-7.7 [facility] Neutrophils/100 WBC (Bld) 70.8 % 47-70 [facility] Potassium [Moles/Vol] 4.2 mmol/L 3.5-5.1 [facility] Protein [Mass/Vol] 8.0 g/dL 6.4-8.2 [facility] Sodium [Moles/Vol] 141 mmol/L 136-145 [facility] Triglyceride [Mass/Vol] 228 mg/dL <199 [facility] Comment on above: The drugs N-Acetylcy steine and Metamizole may falsely depress this assay.Serum Triglycerides Reference Interval Normal <150 mg/dL Borderline high 150 - 199 mg/dL High 200 - 499 mg/dL Very High > or = 500 mg/dL WBC (Bld) [#/Vol] 8.1 10*3/uL 4.4-11.0 [facility] Determination of erythrocyte mean corpuscular volume (MCV)Ordered By: Danny Herrera on 10-16-2023 MCV (RBC) [Entitic vol] 91.7 fL 81-[address] [facility] Erythrocyte distribution wid th ratioOrdered By: Danny Herrera on 10-16-2023 Erythrocyte distribution width (RBC) [Ratio] 14.5 % 11.6-14.6 [facility] Erythrocyte distribution wid th standard deviationOrdered By: Dayoelkhartjorge Herrera on 10-16-2023 Erythrocyte distribution width (RBC) [Entitic vol] 49.0 fL 35.1-43.9 [facility] Erythrocyte sedimentation ra teOrdered By: Danny Herrera on 10-16-2023 ESR (Bld) [Velocity] 43 mm/h 0-30 [facility] Hematocrit Auto (Bld) [Volum e fraction]Ordered By: Danny Herrera on 10-16-2023 Hematocrit (Bld) [Volume fraction] 38.6 % 37-47 [facility] Immature granulocytes/100 WB C Auto (Bld)Ordered By: orinelkhartjorge Herrera on 10-16-2023 Immature granulocytes/100 WBC (Bld) 0.500 % 0.0-0.9 [facility] Comment on above: IG% - Immature Granu locytes (promyelocytes, myelocytes and metamyelocytes) > 1% indicates that a LEFT SHIFT is Present. Laboratory - Chemistry and C hemistry - challengeOrdered By: [facility] Herrera on 10-16-2023 Albumin/Globulin [Mass ratio] 0.9 {ratio} 0.9-2.4 [facility] ALP [Catalytic activity/Vol] 94 U/L 45-117 [facility] ALT [Catalytic activity/Vol] 26 U/L 13-56 [facility] Cholesterol in HDL [Mass/Vol] 56 mg/dL >40 [facility] Comment on above: The drugs N-Acetylcy steine and Metamizole may falsely depress this assay. Reference Range HDL <40 mg/dL Low HDL Cholesterol HDL >or= 60 mg/dL High HDL Cholesterol Cholesterol in LDL [Mass/Vol] 181 mg/dL 0-130 [facility] CO2 [Moles/Vol] 21.0 mmol/L 21.0-32.0 [facility] Globulin (S) [Mass/Vol] 4.3 g/dL 2.2-4.[address] [facility] Urea nitrogen/Creatinine [Mass ratio] 30.2 mg/mg 10-20 [facility] Laboratory - Hematology and Cell countsOrdered By: orinelkhartjorge Herrera on 10-16-2023 MCH (RBC) [Entitic mass] 29.2 pg 27.0-32.0 [facility] MCHC (RBC) [Mass/Vol] 31.9 g/dL 32-36 [facility] Nucleated RBC/100 WBC (Bld) [Ratio] 0 % 0-5 [facility] Platelet mean volume (Bld) [Entitic vol] 10.2 fL 6.2-12.0 [facility] Platelets (Bld) [#/Vol] 298 10*3/uL 150-450 [facility] No Panel InformationOrdered By: Danny Herrera on 10-16-2023 C-Reactive Protein Extended Range 7.63 mg/L 0.0-3.0 [facility] Comment on above: C-Reactive Protein ( CRP) provides useful information for thediagnosis, therapy and monitoring of inflammatory processesand associated diseases. For the evaluation of Relative Riskfor Cardiovascular Disease, a High Sensitivity CRP (HSCRP)should be ordered. Estimated GFR (MDRD) Amer 85 mL/min >60 [facility] Comment on above: GFR Calc Estimated GFR (MDRD) Non-Af Amer 70 mL/min >60 [facility] Comment on above: Non- GFR Calc Vitamin D 25-Hydroxy 35.4 ng/mL [facility] Comment on above: Vitamin D 25(OH) Sta tus Range Deficiency <20 ng/mL (50nmol/L) Insufficiency 20 - 30 ng/mL (50 - 75 nmol/L) Sufficiency 30 - 100 ng/mL (75 - 250 nmol/L) Toxicity >100 ng/mL (>250 nmol/L) VLDL Cholesterol 46 mg/dL 5-40 [facility] RBC Auto (Bld) [#/Vol]Ordere d By: Danny Herrera on 10-16-2023 RBC (Bld) [#/Vol] 4.21 10*6/uL 4.2-5.4 [facility] Serum or plasma calcium digna urement (mass/volume)Ordered By: Danny Herrera on 10-16-2023 Calcium [Mass/Vol] 9.7 mg/dL 8.5-10.1 [facility] Serum or plasma creatinine m easurement (mass/volume)Ordered By: Danny Herrera on 10-16-2023 Creatinine [Mass/Vol] 0.86 mg/dL 0.55-1.02 [facility] Comment on above: The validity of the calculated GFR & GFRAA in patients over 70 years has not been determined. Clinical correlation is essential. Serum or plasma urea nitroge n measurement (mass/volume)Ordered By: Danny Herrera on 10-16-2023 Urea nitrogen [Mass/Vol] 26 mg/dL 7-18 [facility] Thin prep Papanicolaou smear with manual screeningOrdered By: Danny Herrera on 10-16-2023 Thin prep Papanicolaou smear with manual screening 3.7 g/dL 3.2-5.0 [facility] Thin prep Papanicolaou smear with manual screening 21 U/L 15-37 [facility] Thin prep Papanicolaou smear with manual screening 10 5-15 [facility] Whole blood hemoglobin A1c/t otal hemoglobin ratio (mass fraction)Ordered By: Danny Herrera on 10-16-2023 HbA1c (Bld) [Mass fraction] 7.7 % 3.8-5.6 [facility] Comment on above: Normal < 5.7 % Predi abetic 5.7 - 6.4 % Diabetic >or= 6.5 % Please note range changes. Basophil percentageOrdered B y: Nazario Ha on 11-27-2022 Cholesterol [Mass/Vol] 243 mg/dL <200 [facility] Comment on above: <200 mg/dL Desirable 200-240 mg/dL Borderline >240 mg/dL High Risk Triglyceride [Mass/Vol] 267 mg/dL <[address] [facility] Comment on above: The drugs N-Acetylcy steine and Metamizole may falsely depress this assay.Serum Triglycerides Reference Interval Normal <150 mg/dL Borderline high 150 - 199 mg/dL High 200 - 499 mg/dL Very High > or = 500 mg/dL No Panel InformationOrdered By: Nazario Ha on 11-27-2022 Thyroid Stimulating Hormone (TSH) 0.46 uIU/mL 0.358-3.74 [facility] Serum or plasma cholesterol in HDL measurement (mass/volume)Ordered By: Nazario Ha on 11-27-2022 Cholesterol in HDL [Mass/Vol] 48 mg/dL >40 [facility] Comment on above: The drugs N-Acetylcy steine and Metamizole may falsely depress this assay. Reference Range HDL <40 mg/dL Low HDL Cholesterol HDL >or= 60 mg/dL High HDL Cholesterol Serum or plasma cholesterol in VLDL measurement (mass/volume)Ordered By: Nazario Ha on 11-27-2022 Cholesterol in VLDL [Mass/Vol] 53 mg/dL 5-40 [facility] Serum or plasma low density lipoprotein (LDL) cholesterol measurement (mass/volume)Ordered By: Nazario Ha on 11-27-2022 Cholesterol in LDL [Mass/Vol] 142 mg/dL 0-130 [facility] Whole blood hemoglobin A1c/t otal hemoglobin ratio (mass fraction)Ordered By: Nazario Ha on 11-27-2022 HbA1c (Bld) [Mass fraction] 6.8 % 3.8-5.6 [facility] Comment on above: Normal < 5.7 % Predi abetic 5.7 - 6.4 % Diabetic >or= 6.5 % Please note range changes. Absolute lymphocyte countOrd ered By: Dr. Johnson on 11-01-2022 Lymphocytes Auto (Unsp spec) [#/Vol] 1.91 10*3/uL 0.83-4.51 [facility] Basophil percentageOrdered B y: Dr. Johnson on 11-01-2022 Basophils/100 WBC (Bld) 0.2 % 0-[address] [facility] Bilirubin [Mass/Vol] 0.40 mg/dL 0.20-1.00 [facility] Comment on above: For patients on eltr ombopag therapy, use of Dimension [place] TBIL is not recommended. Chloride [Moles/Vol] 103 mmol/L 98-107 [facility] Eosinophils/100 WBC (Bld) 0.3 % 0-5 [facility] Glucose [Mass/Vol] 222 mg/dL 74-106 [facility] Comment on above: Glucose result great er than or equal to 200 mg/dLsuggests DIABETES MELLITUS per A.D.A. criteria. Neutrophils (Bld) [#/Vol] 7.3 10*3/uL 2.0-7.7 [facility] Neutrophils/100 WBC (Bld) 72.5 % 47-70 [facility] Potassium [Moles/Vol] 4.0 mmol/L 3.5-5.1 [facility] Protein [Mass/Vol] 8.6 g/dL 6.4-8.2 [facility] Sodium [Moles/Vol] 135 mmol/L 136-145 [facility] WBC (Bld) [#/Vol] 10.0 10*3/uL 4.4-11.0 [facility] Blood erythrocytes count (nu mber/volume)Ordered By: Dr. Johnson on 11-01-2022 RBC (Bld) [#/Vol] 4.03 10*6/uL 4.2-5.4 [facility] Blood hemoglobin measurement (mass/volume)Ordered By: Dr. Johnson on 11-01-2022 Hemoglobin (Bld) [Mass/Vol] 11.1 g/dL 12.0-15.0 [facility] Blood lymphocytes/100 leukoc ytesOrdered By: Dr. Johnson on 11-01-2022 Lymphocytes/100 WBC (Bld) 19.1 % 19-41 [facility] Blood monocytes/100 leukocyt esOrdered By: Dr. Johnson on 11-01-2022 Monocytes/100 WBC (Bld) 7.4 % 0-[address] [facility] Blood platelet mean volumeOr dered By: Dr. Johnson on 11-01-2022 Platelet mean volume (Bld) [Entitic vol] 9.8 fL 6.2-12.0 [facility] Determination of erythrocyte mean corpuscular volume (MCV)Ordered By: Dr. Johnson on 11-01-2022 MCV (RBC) [Entitic vol] 89.3 fL 81-[address] [facility] Erythrocyte sedimentation ra teOrdered By: Dr. Johnson on 11-01-2022 ESR (Bld) [Velocity] 99 mm/h 0-30 [facility] Hematocrit Auto (Bld) [Volum e fraction]Ordered By: Dr. Johnson on 11-01-2022 Hematocrit (Bld) [Volume fraction] 36.0 % 37-47 [facility] Laboratory - Chemistry and C hemistry - challengeOrdered By: Dr. Johnson on 11-01-2022 ALP [Catalytic activity/Vol] 76 U/L 45-117 [facility] ALT [Catalytic activity/Vol] 20 U/L 13-56 [facility] CO2 [Moles/Vol] 26.0 mmol/L 21.0-32.0 [facility] Globulin (S) [Mass/Vol] 5.4 g/dL 2.2-4.2 [facility] Urea nitrogen/Creatinine [Mass ratio] 27.9 mg/mg 10-20 [facility] Laboratory - Hematology and Cell countsOrdered By: Dr. Johnson on 11-01-2022 Erythrocyte distribution width (RBC) [Entitic vol] 45.0 fL 35.1-43.9 [facility] Erythrocyte distribution width (RBC) [Ratio] 13.6 % 11.6-14.6 [facility] Immature granulocytes/100 WBC (Bld) 0.500 % 0.0-0.9 [facility] Comment on above: IG% - Immature Granu locytes (promyelocytes, myelocytes and metamyelocytes) > 1% indicates that a LEFT SHIFT is Present. MCH (RBC) [Entitic mass] 27.5 pg 27.0-32.0 [facility] Nucleated RBC/100 WBC (Bld) [Ratio] 0 % 0-5 [facility] MCHC Auto (RBC) [Mass/Vol]Or dered By: Dr. Johnson on 11-01-2022 MCHC (RBC) [Mass/Vol] 30.8 g/dL 32-36 [facility] No Panel InformationOrdered By: Dr. Johnson on 11-01-2022 Estimated GFR (MDRD) Amer 78 mL/min >60 [facility] Comment on above: GFR Calc Estimated GFR (MDRD) Non-Af Amer 64 mL/min >60 [facility] Comment on above: Non- GFR Calc Platelets bldOrdered By: Dr. Johnson on 11-01-2022 Platelets (Bld) [#/Vol] 573 10*3/uL 150-450 [facility] Serum or plasma C reactive p rotein measurement (mass/volume)Ordered By: Dr. Johnson on 11-01-2022 CRP [Mass/Vol] 108.00 mg/L 0.0-3.0 [facility] Comment on above: C-Reactive Protein ( CRP) provides useful information for thediagnosis, therapy and monitoring of inflammatory processesand associated diseases. For the evaluation of Relative Riskfor Cardiovascular Disease, a High Sensitivity CRP (HSCRP)should be ordered. Serum or plasma albumin digna urement (mass/volume)Ordered By: Dr. Johnson on 11-01-2022 Albumin [Mass/Vol] 3.2 g/dL 3.2-5.0 [facility] Serum or plasma albumin/glob ulin mass ratioOrdered By: Dr. Johnson on 11-01-2022 Albumin/Globulin [Mass ratio] 0.6 {ratio} 0.9-2.4 [facility] Serum or plasma calcium digna urement (mass/volume)Ordered By: Dr. Johnson on 11-01-2022 Calcium [Mass/Vol] 10.1 mg/dL 8.5-10.1 [facility] Serum or plasma creatinine m easurement (mass/volume)Ordered By: Dr. Johnson on 11-01-2022 Creatinine [Mass/Vol] 0.93 mg/dL 0.55-1.02 [facility] Comment on above: The validity of the calculated GFR & GFRAA in patients over 70 years has not been determined. Clinical correlation is essential. Serum or plasma urea nitroge n measurement (mass/volume)Ordered By: Dr. Johnson on 11-01-2022 Urea nitrogen [Mass/Vol] 26 mg/dL 7-18 [facility] Thin prep Papanicolaou smear with manual screeningOrdered By: Dr. Johnson on 11-01-2022 Thin prep Papanicolaou smear with manual screening 17 U/L 15-37 [facility] Thin prep Papanicolaou smear with manual screening 6 5-15 [facility] Absolute lymphocyte counton 11-10-2021 Lymphocytes Auto (Unsp spec) [#/Vol] 1.38 10*3/uL 0.83-4.51 [facility] Work Phone: Basophil percentageon 2021 Basophils/100 WBC (Bld) 0.2 % 0-[address] [facility] Work Phone: Bilirubin [Mass/Vol] 0.30 mg/dL 0.20-1.00 [facility] Work Phone: Comment on above: For patients on eltr ombopag therapy, use of [place] TBIL is not recommended. Chloride [Moles/Vol] 108 mmol/L 98-107 [facility] Work Phone: Eosinophils/100 WBC (Bld) 0.7 % 0-5 [facility] Work Phone: Glucose [Mass/Vol] 189 mg/dL 74-106 [facility] Work Phone: Comment on above: Fasting Glucose resu lt greater than or equal to 126 mg/dL suggests DIABETES MELLITUS per A.D.A. criteria. Neutrophils (Bld) [#/Vol] 8.0 10*3/uL 2.0-7.7 [facility] Work Phone: Neutrophils/100 WBC (Bld) 80.1 % 47-70 [facility] Work Phone: Potassium [Moles/Vol] 4.5 mmol/L 3.5-5.1 [facility] Work Phone: Protein [Mass/Vol] 8.6 g/dL 6.4-8.2 [facility] Work Phone: Sodium [Moles/Vol] 139 mmol/L 136-145 [facility] Work Phone: WBC (Bld) [#/Vol] 9.9 10*3/uL 4.4-11.0 [facility] Work Phone: Blood erythrocytes count (nu mber/volume)on 11-10-2021 RBC (Bld) [#/Vol] 4.36 10*6/uL 4.2-5.4 [facility] Work Phone: Blood hemoglobin measurement (mass/volume)on 11-10-2021 Hemoglobin (Bld) [Mass/Vol] 12.0 g/dL 12.0-15.0 [facility] Work Phone: Blood lymphocytes/100 leukoc yteson 11-10-2021 Lymphocytes/100 WBC (Bld) 13.9 % 19-41 [facility] Work Phone: Blood monocytes/100 leukocyt eson 11-10-2021 Monocytes/100 WBC (Bld) 4.8 % 0-[address] [facility] Work Phone: Blood platelet mean volumeon 11-10-2021 Platelet mean volume (Bld) [Entitic vol] 9.7 fL 6.2-12.0 [facility] Work Phone: [phone] Determination of erythrocyte mean corpuscular volume (MCV)on 11-10-2021 MCV (RBC) [Entitic vol] 86.7 fL 81-[address] [facility] Work Phone: [phone] Erythrocyte sedimentation ra sreedhar 11-10-2021 ESR (Bld) [Velocity] 40 mm[facility]h 0-[facility]: [phone] Hematocrit Auto (Bld) [Volum e fraction]on 11-10-2021 Hematocrit (Bld) [Volume fraction] 37.8 % 37-47 [facility] Work Phone: [phone] Laboratory - Chemistry and C hemistry - challengeon 11-10-2021 ALP [Catalytic activity/Vol] 73 U/L 45-117 [facility] Work Phone: [phone] ALT [Catalytic activity/Vol] 17 U/L 13-56 [facility] Work Phone: [phone] CO2 [Moles/Vol] 25.0 mmol/L 21.0-32.0 [facility] Work Phone: [phone] Globulin (S) [Mass/Vol] 5.1 g/dL 2.2-4.[address] [facility] Work Phone: [phone] Urea nitrogen/Creatinine [Mass ratio] 31.7 mg/mg 10-20 [facility] Work Phone: [phone] Laboratory - Hematology and Cell countson 11-10-2021 Erythrocyte distribution width (RBC) [Entitic vol] 53.5 fL 35.1-43.9 [facility] Work Phone: [phone] Erythrocyte distribution width (RBC) [Ratio] 16.7 % 11.6-14.6 [facility] Work Phone: [phone] Immature granulocytes/100 WBC (Bld) 0.300 % 0.0-0.9 [facility] Work Phone: [phone] Comment on above: IG% - Immature Granu locytes (promyelocytes, myelocytes and metamyelocytes) > 1% indicates that a LEFT SHIFT is Present. MCH (RBC) [Entitic mass] 27.5 pg 27.0-32.0 [facility] Work Phone: Nucleated RBC/100 WBC (Bld) [Ratio] 0 % 0-5 [facility] Work Phone: MCHC Auto (RBC) [Mass/Vol]on 11-10-2021 MCHC (RBC) [Mass/Vol] 31.7 g/dL 32-36 [facility] Work Phone: No Panel Informationon 11-10 Estimated GFR (MDRD) Amer 79 mL/min >60 [facility] Work Phone: Comment on above: GFR Calc Estimated GFR (MDRD) Non-Af Amer 66 mL/min >60 [facility] Work Phone: Comment on above: Non- GFR Calc Platelets bldon 11-10-2021 Platelets (Bld) [#/Vol] 377 10*3/uL 150-450 [facility] Work Phone: Serum or plasma C reactive p rotein measurement (mass/volume)on 11-10-2021 CRP [Mass/Vol] 21.40 mg/L 0.0-3.0 [facility] Work Phone: Comment on above: C-Reactive Protein ( CRP) provides useful information for thediagnosis, therapy and monitoring of inflammatory processesand associated diseases. For the evaluation of Relative Riskfor Cardiovascular Disease, a High Sensitivity CRP (HSCRP)should be ordered. Serum or plasma albumin digna urement (mass/volume)on 11-10-2021 Albumin [Mass/Vol] 3.5 g/dL 3.2-5.0 [facility] Work Phone: [phone] Serum or plasma albumin/glob ulin mass ratioon 11-10-2021 Albumin/Globulin [Mass ratio] 0.7 {ratio} 0.9-2.4 [facility] Work Phone: Serum or plasma calcium digna urement (mass/volume)on 11-10-2021 Calcium [Mass/Vol] 9.5 mg/dL 8.5-10.1 [facility] Work Phone: Serum or plasma creatinine m easurement (mass/volume)on 11-10-2021 Creatinine [Mass/Vol] 0.92 mg/dL 0.55-1.02 [facility] Work Phone: Comment on above: The validity of the calculated GFR & GFRAA in patients over 70 years has not been determined. Clinical correlation is essential. Serum or plasma urea nitroge n measurement (mass/volume)on 11-10-2021 Urea nitrogen [Mass/Vol] 29 mg/dL 7-18 [facility] Work Phone: Thin prep Papanicolaou smear with manual screeningon 11-10-2021 Thin prep Papanicolaou smear with manual screening 14 U/L 15-37 [facility] Work Phone: Thin prep Papanicolaou smear with manual screening 6 5-15 [facility] Work Phone: PROGRESSon 04-29-2018 Protein mass conc HNO ID: [id number]: Candie Key PageService: (none)Author Type: Nurse PractitionerType: Progress NotesFiled: 04/29/2018 6:39 PMNote Text:Patient triaged. Patient presented to express care with leftsubconjunctival hemorrhage, denies injury, trauma or fall, deniesdizziness, lightheadedness, headache, visual changes or disturbances,shortness of breath, tightness in chest, chest pain, numbness, tingling,weakness.Jina ent states that her blood pressure is elevated.BP reading at time of triage: 152/80Heart: RRR, no muirmur, rub, gallop, no JVD, bilat distal pulses palpableand evenNeuro: PERRLA, EOMI, no nystagmusLungs: CTABAdvised patient to follow up with PCPIf new or worsening symptoms proceed to ER Normal [facility] Vital Signs Date Time Vital Sign Value Performing Clinician Faci lity 01-13-2025 08:07-0400 Body temperature 98.4 [degF] Dr. Danny Herrera MD Work Phone: [facility] 01-13-2025 08:07-0400 Diastolic blood pressure 71 mm[Hg] Dr. Danny Herrera MD Work Phone: [facility] 01-13-2025 08:07-0400 Heart rate 101 /min Dr. Danny Herrera MD Work Phone: [facility] 01-13-2025 08:07-0400 Respiratory rate 17 /min Dr. Danny Herrera MD Work Phone: [facility] 01-13-2025 08:07-0400 SaO2% (BldA) [Mass fraction] 97 % Dr. Danny Herrera MD Work Phone: [facility] 01-13-2025 08:07-0400 Systolic blood pressure 153 mm[Hg] Dr. Danny Herrera MD Work Phone: [facility] 12-15-2024 10:20-0400 Body mass index (BMI) [Ratio] 31.5 kg/m2 Dr. Danny Herrera MD Work Phone: [facility] 12-15-2024 10:20-0400 Body temperature 98.2 [degF] Dr. Danny Herrera MD Work Phone: [facility] 12-15-2024 10:20-0400 Diastolic blood pressure 69 mm[Hg] Dr. Danny Herrera MD Work Phone: [facility] 12-15-2024 10:20-0400 Heart rate 112 /min Dr. Danny Herrera MD Work Phone: [facility] 12-15-2024 10:20-0400 Respiratory rate 18 /min Dr. Danny Herrera MD Work Phone: [facility] 12-15-2024 10:20-0400 Systolic blood pressure 155 mm[Hg] Dr. Danny Herrera MD Work Phone: [facility] 12-09-2024 00:29-0400 Body weight 75.[address] Danny Herrera MD Work Phone: [facility] 12-01-2024 10:23-0400 Body mass index (BMI) [Ratio] 31.5 kg/m2 Dr. Danny Herrera MD Work Phone: [facility] 12-01-2024 10:23-0400 Body temperature 99.3 [degF] Dr. Danny Herrera MD Work Phone: [facility] 12-01-2024 10:23-0400 Diastolic blood pressure 81 mm[Hg] Dr. Danny Herrera MD Work Phone: [facility] 12-01-2024 10:23-0400 Heart rate 106 /min Dr. Danny Herrera MD Work Phone: [facility] 12-01-2024 10:23-0400 Respiratory rate 14 /min Dr. Danny Herrera MD Work Phone: [facility] 12-01-2024 10:23-0400 Systolic blood pressure 154 mm[Hg] Dr. Danny Herrera MD Work Phone: [facility] 11-09-2024 00:21-0400 Body weight 75.[address] Danny Herrera MD Work Phone: [facility] 11-03-2024 11:16-0400 Body mass index (BMI) [Ratio] 31.5 kg/m2 Dr. Danny Herrera MD Work Phone: [facility] 11-03-2024 11:16-0400 Body temperature 97.5 [degF] Dr. Danny Herrera MD Work Phone: [facility] 11-03-2024 11:16-0400 Diastolic blood pressure 72 mm[Hg] Dr. Danny Herrera MD Work Phone: [facility] 11-03-2024 11:16-0400 Heart rate 94 /min Dr. Danny Herrera MD Work Phone: [facility] 11-03-2024 11:16-0400 Respiratory rate 18 /min Dr. Danny Herrera MD Work Phone: [facility] 11-03-2024 11:16-0400 Systolic blood pressure 134 mm[Hg] Dr. Danny Herrera MD Work Phone: [facility] 11-01-2024 08:13-0400 Body height 154.[address] Danny Herrera MD Work Phone: [facility] 11-01-2024 08:13-0400 Body mass index (BMI) [Ratio] 29.5 kg/m2 Dr. Danny Herrera MD Work Phone: [facility] 11-01-2024 08:13-0400 Body temperature 98.2 [degF] Dr. Danny Herrera MD Work Phone: [facility] 11-01-2024 08:13-0400 Body weight 70.[address] Danny Herrera MD Work Phone: [facility] 11-01-2024 08:13-0400 Diastolic blood pressure 72 mm[Hg] Dr. Danny Herrera MD Work Phone: [facility] 11-01-2024 08:13-0400 Heart rate 113 /min Dr. Danny Herrera MD Work Phone: [facility] 11-01-2024 08:13-0400 Respiratory rate 18 /min Dr. Danny Herrera MD Work Phone: [facility] 11-01-2024 08:13-0400 SaO2% (BldA) [Mass fraction] 98 % Dr. Danny Herrera MD Work Phone: [facility] 11-01-2024 08:13-0400 Systolic blood pressure 138 mm[Hg] Dr. Danny Herrera MD Work Phone: [facility] 10-09-2024 01:23-0500 Body weight 75.[address] Danny Herrera MD Work Phone: [facility] 10-06-2024 11:15-0500 Body mass index (BMI) [Ratio] 31.5 kg/m2 Dr. Danny Herrera MD Work Phone: [facility] 10-06-2024 11:15-0500 Body temperature 97.2 [degF] Dr. Danny Herrera MD Work Phone: [facility] 10-06-2024 11:15-0500 Diastolic blood pressure 79 mm[Hg] Dr. Danny Herrera MD Work Phone: [facility] 10-06-2024 11:15-0500 Heart rate 116 /min Dr. Danny Herrera MD Work Phone: [facility] 10-06-2024 11:15-0500 Respiratory rate 18 /min Dr. Danny Herrera MD Work Phone: [facility] 10-06-2024 11:15-0500 Systolic blood pressure 162 mm[Hg] Dr. Danny Herrera MD Work Phone: [facility] 10-05-2024 20:35-0500 Body temperature 97.5 [degF] Dr. Danny Herrera MD Work Phone: [facility] 10-05-2024 20:35-0500 Diastolic blood pressure 84 mm[Hg] Dr. Danny Herrera MD Work Phone: [facility] 10-05-2024 20:35-0500 Heart rate 106 /min Dr. Danny Herrera MD Work Phone: [facility] 10-05-2024 20:35-0500 Respiratory rate 15 /min Dr. Danny Herrera MD Work Phone: [facility] 10-05-2024 20:35-0500 SaO2% (BldA) [Mass fraction] 99 % Dr. Danny Herrera MD Work Phone: [facility] 10-05-2024 20:35-0500 Systolic blood pressure 168 mm[Hg] Dr. Danny Herrera MD Work Phone: [facility] 10-01-2024 15:23-0500 Body temperature 98.2 [degF] Dr. Danny Herrera MD Work Phone: [facility] 10-01-2024 15:23-0500 Diastolic blood pressure 70 mm[Hg] Dr. Danny Herrera MD Work Phone: [facility] 10-01-2024 15:23-0500 Heart rate 104 /min Dr. Danny Herrera MD Work Phone: [facility] 10-01-2024 15:23-0500 Respiratory rate 16 /min Dr. Danny Herrera MD Work Phone: [facility] 10-01-2024 15:23-0500 SaO2% (BldA) [Mass fraction] 97 % Dr. Danny Herrera MD Work Phone: [facility] 10-01-2024 15:23-0500 Systolic blood pressure 144 mm[Hg] Dr. Danny Herrera MD Work Phone: [facility] 10-01-2024 10:19-0500 Body mass index (BMI) [Ratio] 29.7 kg/m2 Dr. Danny Herrera MD Work Phone: [facility] 10-01-2024 10:19-0500 Body weight 71.[address] Danny Herrera MD Work Phone: [facility] 09-17-2024 14:11-0500 Body temperature 97.9 [degF] Dr. Danny Herrera MD Work Phone: [facility] 09-17-2024 14:11-0500 Diastolic blood pressure 70 mm[Hg] Dr. Danny Herrera MD Work Phone: [facility] 09-17-2024 14:11-0500 Heart rate 109 /min Dr. Danny Herrera MD Work Phone: [facility] 09-17-2024 14:11-0500 Respiratory rate 16 /min Dr. Danny Herrera MD Work Phone: [facility] 09-17-2024 14:11-0500 SaO2% (BldA) [Mass fraction] 99 % Dr. Danny Herrera MD Work Phone: [facility] 09-17-2024 14:11-0500 Systolic blood pressure 140 mm[Hg] Dr. Danny Herrera MD Work Phone: [facility] 09-11-2024 02:42-0500 Body weight 75.[address] Danny Herrera MD Work Phone: [facility] 09-08-2024 10:49-0500 Body mass index (BMI) [Ratio] 31.5 kg/m2 Dr. Danny Herrera MD Work Phone: [facility] 09-08-2024 10:49-0500 Diastolic blood pressure 77 mm[Hg] Dr. Danny Herrera MD Work Phone: [facility] 09-08-2024 10:49-0500 Heart rate 109 /min Dr. Danny Herrera MD Work Phone: [facility] 09-08-2024 10:49-0500 Respiratory rate 16 /min Dr. Danny Herrera MD Work Phone: [facility] 09-08-2024 10:49-0500 Systolic blood pressure 147 mm[Hg] Dr. Danny Herrera MD Work Phone: [facility] 09-01-2024 10:30-0500 Body temperature 97.2 [degF] Dr. Danny Herrera MD Work Phone: [facility] 09-01-2024 10:30-0500 Body weight 75.[address] Danny Herrera MD Work Phone: [facility] 07-22-2024 08:27-0500 Body mass index (BMI) [Ratio] 31.5 kg/m2 Dr. Danny Herrera MD Work Phone: [facility] 07-22-2024 08:27-0500 Body temperature 98.4 [degF] Dr. Danny Herrera MD Work Phone: [facility] 07-22-2024 08:27-0500 Body weight 75.[address] Danny Herrera MD Work Phone: [facility] 07-22-2024 08:27-0500 Diastolic blood pressure 84 mm[Hg] Dr. Danny Herrera MD Work Phone: [facility] 07-22-2024 08:27-0500 Heart rate 108 /min Dr. Danny Herrera MD Work Phone: [facility] 07-22-2024 08:27-0500 Respiratory rate 16 /min Dr. Danny Herrera MD Work Phone: [facility] 07-22-2024 08:27-0500 SaO2% (BldA) [Mass fraction] 97 % Dr. Danny Herrera MD Work Phone: [facility] 07-22-2024 08:27-0500 Systolic blood pressure 146 mm[Hg] Dr. Danny Herrera MD Work Phone: [facility] 11-27-2022 08:05-0400 Body height 157.[address] Danny Herrera Work Phone: [facility] 11-27-2022 08:05-0400 Body mass index (BMI) [Ratio] 30.7 kg/m2 Dr. Danny Herrera Work Phone: [facility] 11-27-2022 08:05-0400 Body temperature 97.4 [degF] Dr. Danny Herrera Work Phone: [facility] 11-27-2022 08:05-0400 Body weight 76.[address] Danny Herrera Work Phone: [facility] 11-27-2022 08:05-0400 Diastolic blood pressure 84 mm[Hg] Dr. Danny Herrera Work Phone: [facility] 11-27-2022 08:05-0400 Heart rate 107 /min Dr. Danny Herrera Work Phone: [facility] 11-27-2022 08:05-0400 Respiratory rate 18 /min Dr. Danny Herrera Work Phone: [facility] 11-27-2022 08:05-0400 SaO2% (BldA) [Mass fraction] 100 % Dr. Danny Herrera Work Phone: [facility] 11-27-2022 08:05-0400 Systolic blood pressure 148 mm[Hg] Dr. Danny Herrera Work Phone: [facility] 08-08-2021 07:16-0500 Body height 157.[address] Danny Herrera Work Phone: [facility] Work Phone: 08-08-2021 07:16-0500 Body mass index (BMI) [Ratio] 29.4 kg/m2 Dr. Danny Herrera Work Phone: [facility] Work Phone: 08-08-2021 07:16-0500 Body temperature 97.6 [degF] Dr. Danny Herrera Work Phone: [facility] Work Phone: 08-08-2021 07:16-0500 Body weight 73.[address] Danny Herrera Work Phone: [facility] Work Phone: 08-08-2021 07:16-0500 Diastolic blood pressure 74 mm[Hg] Dr. Danny Herrera Work Phone: [facility] Work Phone: 08-08-2021 07:16-0500 Heart rate 108 /min Dr. Danny Herrera Work Phone: [facility] Work Phone: 08-08-2021 07:16-0500 Respiratory rate 14 /min Dr. Danny Herrera Work Phone: [facility] Work Phone: 08-08-2021 07:16-0500 SaO2% (BldA) [Mass fraction] 99 % Dr. Danny Herrera Work Phone: [facility] Work Phone: 08-08-2021 07:16-0500 Systolic blood pressure 130 mm[Hg] Dr. Danny Herrera Work Phone: [facility] Work Phone: Encounters Encounter Date Encounter Type Care Provider Facility Start: 01-13-2025 End: 01-13-[address] Paresh Arellano MD -[facility] Work Phone: Start: 01-13-2025 End: 01-13-[address] Danny Herrera MD Work Phone: [facility] Work Phone: Start: 12-15-2024 End: 01-06-[address] Thompson Wright [facility] Work Phone: Start: 12-15-2024 End: 01-06-[address] Danny Herrera MD Work Phone: [facility] Work Phone: Start: 12-01-2024 End: 12-08-2024 ambulatory Thompson Wright Facility:[facility] Start: 12-01-2024 End: 12-08-[address] Thompson Wright DPM [facility] Work Phone: Start: 11-03-2024 End: 11-08-[address] Danny Herrera MD Work Phone: [facility] Work Phone: Start: 11-03-2024 End: 11-08-[address] Thompson Wright DPM [facility] Work Phone: Start: 11-01-2024 End: 11-01-[address] Danny Herrera MD -[facility] Work Phone: Start: 11-01-2024 End: 11-01-[address] Danny Herrera MD [facility] Start: 11-01-2024 End: 11-01-2024 ambulatory Danny Herrera Facility:[facility] Start: 10-07-2024 [facility] Start: 10-06-2024 End: 10-08-2024 ambulatory Paresh Arellano Facility:[facility] Start: 10-06-2024 End: 10-08-[address] Thompson Wright DPM [facility] Work Phone: Start: 10-05-2024 End: 10-05-2024 Emergency department patient visit ED PHYSICIAN PROVIDER -Emergency Department Work Phone: Start: 10-01-2024 End: 10-01-2024 Non-patient / Non-visit Dr. Heriberto Wyatt MD -[facility] Work Phone: Start: 10-01-2024 End: 10-01-2024 Admission to same day surgery center Dr. Thompson Wright DPM -[facility] Start: 10-01-2024 End: 10-01-2024 ambulatory [facility] Facility:[facility] Start: 09-23-2024 End: 09-23-[address] Paresh Arellano MD -[facility], [place] Work Phone: Start: 09-22-2024 End: 09-23-2024 ambulatory [facility] Facility:[facility] Start: 09-17-2024 Encounter for other preprocedural examination [facility] Start: 09-17-2024 End: 09-17-[address] Danny Herrera MD -[facility] [place] Start: 09-17-2024 End: 09-17-[address] Danny Herrera MD -[facility] Work Phone: Start: 09-17-2024 End: 09-17-[address] Danny Herrera MD [facility] Start: 09-17-2024 End: 09-17-2024 ambulatory [facility] Facility:[facility] Start: 09-17-2024 End: 09-17-2024 ambulatory [facility] Facility:[facility] Start: 09-10-2024 End: 09-10-[address] Thompson Wright DPM -[facility] Work Phone: Start: 09-10-2024 End: 09-10-2024 ambulatory [facility] Facility:[facility] Start: 09-08-2024 End: 09-10-2024 ambulatory [facility] Facility:[facility] Start: 09-08-2024 End: 09-10-[address] Thompson Wright D[facility] Work Phone: Start: 07-22-2024 End: 07-22-[address] Paresh Arellano MD -[facility] Work Phone: Start: 07-22-2024 End: 07-22-2024 ambulatory Danny Patele Facility:[facility] Start: 06-29-2024 End: 06-29-2024 ambulatory Eforinongbe Jocelyne Facility:[facility] Start: 06-21-2024 End: 06-21-2024 ambulatory Dayoelkhartjorge Patele Facility:[facility] Start: 06-08-2024 End: 06-08-2024 ambulatory Paresh Arellano Facility:[facility] Start: 05-28-2024 End: 05-28-2024 ambulatory Danny Patele Facility:[facility] Start: 05-24-2024 ambulatory Danny Herrera Facili ty:[facility] Start: 05-23-2024 ambulatory Jaqui Carey [facility] Start: 05-23-2024 End: 05-24-2024 Evaluation and management of inpatient Jaqui Aurelio Facility:[facility] Start: 05-03-2024 End: 05-03-2024 [facility] Start: 03-24-2024 End: 03-24-2024 ambulatory [facility] Facility:[facility] Start: 03-10-2024 End: 03-10-2024 ambulatory Leeanna Johnson Facility:[facility] Start: 10-16-2023 End: 10-16-2023 ambulatory [facility] Work Phone: Start: 10-16-2023 End: 10-16-2023 Patient encounter procedure [facility] Work Phone: Start: 11-27-2022 End: 11-27-[address] Danny Herrera Work Phone: [facility] Work Phone: Start: 11-27-2022 End: 11-27-2022 Encounter for general adult medical examination without abnormal findings Dr. Danny Herrera Work Phone: [facility] Start: 11-27-2022 End: 11-27-[address] Danny Herrera Work Phone: [facility] Start: 11-01-2022 End: 11-01-[address] Danny Herrera [facility] Start: 12-25-[address] Rach Herrera Work Phone: [facility] Start: 11-10-2021 End: 11-10-[address] Danny Herrera Work Phone: [facility] Start: 08-08-2021 End: 08-08-[address] Danny Herrera Work Phone: [facility] Start: 02-09-[address] Rach Herrera Work Phone: [facility] Procedures Date Procedure Procedure Detail Performing Clinician Start: 10-27-[address] Danny Herrera MD Work Phone: Start: 10-27-2024 Gram stain microscopy D audra Herrera MD Work Phone: Start: 10-27-2024 Microbial culture, routine Dr. Danny Herrera MD Work Phone: Start: 09-17-2024 Measurement of renal function Dr. Danny Herrera MD Work Phone: Comment on above: GFR Calc Start: 09-17-2024 Vitamin D, 25-hydrox y measurement Dr. Danny Herrera MD Work Phone: Comment on above: Vitamin D 25(OH) Sta tus Range Deficiency <20 ng/mL (50nmol/L) Insufficiency 20 - 30 ng/mL (50 - 75 nmol/L) Sufficiency 30 - 100 ng/mL (75 - 250 nmol/L) Toxicity >100 ng/mL (>250 nmol/L) Start: 09-10-2024 MRI of joint of lowe r extremity Dr. Danny Herrera MD Work Phone: Start: 09-01-2024 X-ray of foot, three or more views Dr. Danny Herrera MD Work Phone: Plan of Treatment Date Care Activity Detail Author Start: 10-01-2024 Adjt tis trns/reargm t f/c/c/m/n/a/g/h/f 10sqcm/< TIS TRNFR F/C/C/M/N/A/G/H/F [facility] Start: 10-01-2024 Anes integ extremiti es ant trunk & perineum nos ANESTH SKIN EXT/PER/ATRUNK [facility] Start: 10-01-2024 Exc b9 lesion mrgn x cp sk tg s/n/h/f/g 3.1-4.0cm EXC H-F-NK-SP B9+DEVIN 3.1-4 [facility] Start: 10-01-2024 Patient discharge [facility] Start: 09-17-2024 Evaluation of diagno stic study results [facility] Start: 08-23-2024 Patient referral [facility] Work Phone: Patient Education Post-Op Tips: Foot [facility] Work Phone: Patient referral [facility] Work Phone: XR Shoulder GE 2 Views [facility] Immunizations Immunization Date Immunization Notes Care Provider [facility]21[facility]2020 influenza, injectable,quadrivalent , preservative free, pediatric Dr. Danny Herrera Work Phone: [facility] 06-21-2020 influenza, seasonal, injectable, preservative free Dr. Danny Herrera MD Work Phone: [facility] 06-21-2020 Flucelvax Quad [id number] (PF) (flu vac qs 2019(4 yr up)CD(PF)) 60 mcg ([address] Danny Herrera Work Phone: [facility] Work Phone: Payers Date Payer Category Payer Medicare [id number] 2024 Self-pay [id number] 2023 Private Health Insurance [id number] 2014 Unknown [id number] Unknown [id number] 2.16.8 40.1.248857.3.579.2.462 Unknown [id number] 2.16.8 40.1.096399.3.579.2.462 Unknown [id number] 2.16.8 40.1.515462.3.579.2.462 Unknown [id number] 2.16.8 40.1.291776.3.579.2.462 Unknown [id number] 2.16.8 40.1.577084.3.579.2.462 Unknown [id number] 2.16.8 40.1.856566.3.579.2.462 Unknown [id number] 2.16.8 40.1.755148.3.579.2.462 Unknown [id number] 2.16.8 40.1.925496.3.579.2.462 Unknown [id number] 2.16.8 40.1.077242.3.579.2.462 Unknown [id number] 2.16.8 40.1.755796.3.579.2.462 Unknown [id number] 2.16.8 40.1.318470.3.579.2.462 Unknown [id number] 2.16.8 40.1.361904.3.579.2.462 Unknown [id number] 2.16.8 40.1.846364.3.579.2.462 Unknown [id number] 2.16.8 40.1.477238.3.579.2.462 Unknown [id number] 2.16.8 40.1.784781.3.579.2.462 Unknown [id number] 2.16.8 40.1.405648.3.579.2.462 Unknown [id number] 2.16.8 40.1.163492.3.579.2.462 Unknown [id number] 2.16.8 40.1.586046.3.579.2.462 Unknown [id number] 2.16.8 40.1.565537.3.579.2.462 Unknown [id number] 2.16.8 40.1.591538.3.579.2.462 Unknown [id number] 2.16.8 40.1.556248.3.579.2.462 Unknown [id number] 2.16.8 40.1.972837.3.579.2.462 Unknown [id number] 2.16.8 40.1.004829.3.579.2.462 Unknown [id number] 2.16.8 40.1.136482.3.579.2.462 Unknown [id number] 2.16.8 40.1.773049.3.579.2.462 Unknown [id number] 2.16.8 40.1.091968.3.579.2.462 Unknown [id number] 2.16.8 40.1.624172.3.579.2.462 Unknown [id number] 2.16.8 40.1.005503.3.579.2.462 Social History Date Type Detail Facility Start: 08-08-2021 End: 04-14-2023 Tobacco smoking status NHIS Unknown if ever smoked [facility] Start: 09-05-2017 None [facility] Start: 09-05-2017 Spouse/ Signif icant Other [facility] Start: 09-05-2017 Non-smoker [facility] Start: 1955 Sex Assigned At Female W [facility] Start: 09-30-2024 Tobacco smoking status NHIS Never smoked tobacco (finding) [facility] Start: 11-09-2024 Sex Female (finding) [facility] Goals Date Patient Goal Desired Activity /State Mental Status Date Assessment Result Facility 10-01-2024 Cognitive function Level Of Cons ciousness Follows Commands;Drowsy [facility] Work Phone: 10-01-2024 Cognitive function Arousable To Voice/Nam e [facility] Work Phone: Clinical Notes 05-24-2024 to 12-15-2024 Note Date & Type Note Facility 12-15-2024 Progress note Note Date/Time December 15, 2024 11:11a m [facility] [address] [place] [address] Progress Note - Wound Care 12/15/24 1109 MR#: [id number] Acct: [id number] Name: MILIND DAWSON Rep #:[id number] : 1955 69 From: Thompson GARCIA PCP: Dr. Danny Herrera MD Status:R EG RCR Location: History of Present Illness Date of Service: 12/15/24 Chief Complaint: Left foot wound History of Wound: Left heel full-thickness wound status post excisional removal of benign skin lesion with advancement flap closure. Progress of Wound: Healing stable full-thickness wound left heel Subjective Subjective Mrs. Dawson is a 69-year-old female presenting to clinic today follow-up evaluation of soft tissue mass removal with advancement flap closure to the leftmedial heel. The patient states her incision is now under percent healed. She has no pain with weightbearing. She is doing well. She is great for care. Denies trauma. Denies constitutional symptoms. No other pedal complaints at this time. Objective Data Objective Data Vital Signs: Vital Signs Temp Pulse Resp BP O2 Del Method 98.2 F 112 H 18 155/69 H Room Air 12/15/24 10:20 12/15/24 10:20 12/15/24 10:20 12/15/24 10:20 12/15/24 10:20 Oxygen Delivery Method Room Air Weight: 75.75 kg Body Mass Index (BMI) 31.5 Physical Exam Narrative Vascular: DP and PT pulses are palpable. CFT is brisk. Skin temperature is warm to warm from proximal ankles to distal digits. Nonpitting edema is appreciated to the left lower extremity. No erythema Neurological: Light touch intact. Protective station is present. Dermatological: Full-thickness wound to the medial left foot is now healed. No evidence of skin breakdown or concern for infection Musculoskeletal: No pain on palpation to close incision on the left heel. No pain with calf pressure. 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 ) Arrival Mode Ambulatory Accompanied by Patient Identification Verified (Name & Yes ) Safety Precautions Fall Prevention Height and Weight Body Mass Index (BMI) 31.5 BMI Classification Obese Vital Signs Temperature (97.8 F-99.1 F) 98.2 F Temperature Source Temporal Pulse Rate (60-100) 112 H Pulse Location Monitor Respiratory Rate (12-18) 18 Respiratory rate source Observation Oxygen Delivery Method Room Air Blood Pressure (90/60-120/80) 155/69 H Blood Pressure Mean (mm Hg) 97 Source Monitor Position Sitting Blood Pressure Location Right Arm History Since Last Visit- (Skip if this is Patient's initial visit) Has dressing in place as prescribed Yes Has compression in place as prescribed Yes Has offloadiing in place as prescribed Yes Experienced any changes in pain level or Yes management Left Footwear Regular Shoe Right Footwear Regular Shoe Pain Scale: 0-10 Numeric Is Patient Pain Free? Yes - Nurse 1 - General Ulcer Measurement Start: 12/15/24 10:20 Freq: Status: Active Protocol: Activity Type Activity Date Activity User E-sign Co-sign Detail Recorded Client Recorded Date Recorded By Document 12/15/24 10:20 [email or web address] [id number] 12/15/24 10:26 W[place] 12/15/24 10:20 Wound Center Nurse 1 #1 LT MED HEEL -Date of Last Picture (Recall this 12/15/24 field) -Photo Taken Yes -Epithelialization Large 67-100% -Tunneling No -Undermining/Tunneling No -Circular Undermining No -Wound Comment(s) patient healed. Lower Limb Edema Present NA - Nurse 2 - General Ulcer CM Notes Start: 12/15/24 10:20 Freq: Status: Active Protocol: Activity Type Activity Date Activity User E-sign Co-sign Detail Recorded Client Recorded Date Recorded By Document 12/15/24 10:44 [id number] 12/15/24 10:45 12/15/24 10:44 Wound Center Nurse 2 #1 LT MED HEEL -Correct Patient Yes -Correct Side, Site, Position No -Correct Procedure No -Procedure Performed No -Post Debridement (cm) - Length 0 -Post Debridement (cm) - Width 0 -Post Debridement (cm) - Depth 0 -Total Square (Post) (cm) 0 -Area of Debridement (cm) - Length 0 -Area of Debridement (cm) - Width 0 -Total Square (Area) (cm) 0 -Wound/Ulcer Outcome Healed- Epithelialized Pain Scale: 0-10 Numeric Is Patient Pain Free? Yes - Nurse 3 - General Ulcer D/C NN Start: 12/15/24 10:20 Freq: Status: Active Protocol: Activity Type Activity Date Activity User E-sign Co-sign Detail Recorded Client Recorded Date Recorded By Document 12/15/24 10:45 [id number] 12/15/24 10:45 12/15/24 10:45 Is Patient Pain Free? Yes - Visit Discharge Discharge Condition Stable Ambulatory Status Ambulatory, Wheelchair Transportation Private Auto Accompanied by Medication Reconcilliation completed & Yes provided to patient/care provider Clinical Summary of Care Provided Yes Assessment/Plan Assessment/Plan (1) Non-pressure chronic ulcer of left heel and midfoot with fat layer exposed: CODE(S): L97.422 - Non-pressure chronic ulcer of left heel and midfoot with fat layer exposed PLAN: Patient was examined and evaluated. All findings were discussed with the patient. All questions were answered to the patient's satisfaction. After physical examination the patient's full-thickness wound/incision to the medial aspect of the left foot is healed. There is no evidence of skin breakdown or concern for new infection. The patient continue to ambulate as tolerated in regular slippers and or shoe gear. The patient can follow-up with me in private office as needed. Patient is grateful for her care and will be discharged from the wound care center today. 12/15/24 1111 <Electronically signed by Thompson Wright DPM> Cosigner Signature (if applicable): CC: ~ Signed [facility] Work Phone: 1(489) 854-158205-07-[address] [facility] [address] [place] [address] Progress Note - Wound Care 12/15/24 1109 MR#: [id number] Acct: [id number] Name: MILIND DAWSON Rep #:[id number] : 1955 69 From: Thompson GARCIA PCP: Dr. Danny Herrera MD Status:R EG RCR Location: History of Present Illness Date of Service: 12/15/24 Chief Complaint: Left foot wound History of Wound: Left heel full-thickness wound status post excisional removal of benign skin lesion with advancement flap closure. Progress of Wound: Healing stable full-thickness wound left heel Subjective Subjective Mrs. Dawson is a 69-year-old female presenting to clinic today follow-up evaluation of soft tissue mass removal with advancement flap closure to the leftmedial heel. The patient states her incision is now under percent healed. She has no pain with weightbearing. She is doing well. She is great for care. Denies trauma. Denies constitutional symptoms. No other pedal complaints at this time. Objective Data Objective Data Vital Signs: Vital Signs Temp Pulse Resp BP O2 Del Method 98.2 F 112 H 18 155/69 H Room Air 12/15/24 10:20 12/15/24 10:20 12/15/24 10:20 12/15/24 10:20 12/15/24 10:20 Oxygen Delivery Method Room Air Weight: 75.75 kg Body Mass Index (BMI) 31.5 Physical Exam Narrative Vascular: DP and PT pulses are palpable. CFT is brisk. Skin temperature is warm to warm from proximal ankles to distal digits. Nonpitting edema is appreciated to the left lower extremity. No erythema Neurological: Light touch intact. Protective station is present. Dermatological: Full-thickness wound to the medial left foot is now healed. No evidence of skin breakdown or concern for infection Musculoskeletal: No pain on palpation to close incision on the left heel. No pain with calf pressure. Debridement Note Debridement Note Post-Debridement Measurements and Additional Note: Post-Debridement Measurements/Treatment - Nurse 1 - General Ulcer Assessment Start: 12/15/24 10:20 Freq: Status: Active Protocol: DERRICK Activity Type Activity Date Activity User E-sign Co-sign Detail Recorded Client Recorded Date Recorded By Document 12/15/24 10:20 WY [id number] 12/15/24 10:26 WY 12/15/24 10:20 - Today's Visit Information Type of service Follow-up Visit (Physician/HEAT ENGINEERING TEACHER ) Arrival Mode Ambulatory Accompanied by Patient Identification Verified (Name & Yes ) Safety Precautions Fall Prevention Height and Weight Body Mass Index (BMI) 31.5 BMI Classification Obese Vital Signs Temperature (97.8 F-99.1 F) 98.2 F Temperature Source Temporal Pulse Rate (60-100) 112 H Pulse Location Monitor Respiratory Rate (12-18) 18 Respiratory rate source Observation Oxygen Delivery Method Room Air Blood Pressure (90/60-120/80) 155/69 H Blood Pressure Mean (mm Hg) 97 Source Monitor Position Sitting Blood Pressure Location Right Arm History Since Last Visit- (Skip if this is Patient's initial visit) Has dressing in place as prescribed Yes Has compression in place as prescribed Yes Has offloadiing in place as prescribed Yes Experienced any changes in pain level or Yes management Left Footwear Regular Shoe Right Footwear Regular Shoe Pain Scale: 0-10 Numeric Is Patient Pain Free? Yes - Nurse 1 - General Ulcer Measurement Start: 12/15/24 10:20 Freq: Status: Active Protocol: Activity Type Activity Date Activity User E-sign Co-sign Detail Recorded Client Recorded Date Recorded By Document 12/15/24 10:20 WY [id number] 12/15/24 10:26 WY 12/15/24 10:20 Wound Center Nurse 1 #1 LT MED HEEL -Date of Last Picture (Recall this 12/15/24 field) -Photo Taken Yes -Epithelialization Large 67-100% -Tunneling No -Undermining/Tunneling No -Circular Undermining No -Wound Comment(s) patient healed. Lower Limb Edema Present NA - Nurse 2 - General Ulcer CM Notes Start: 12/15/24 10:20 Freq: Status: Active Protocol: Activity Type Activity Date Activity User E-sign Co-sign Detail Recorded Client Recorded Date Recorded By Document 12/15/24 10:44 [id number] 12/15/24 10:45 12/15/24 10:44 Wound Center Nurse 2 #1 LT MED HEEL -Correct Patient Yes -Correct Side, Site, Position No -Correct Procedure No -Procedure Performed No -Post Debridement (cm) - Length 0 -Post Debridement (cm) - Width 0 -Post Debridement (cm) - Depth 0 -Total Square (Post) (cm) 0 -Area of Debridement (cm) - Length 0 -Area of Debridement (cm) - Width 0 -Total Square (Area) (cm) 0 -Wound/Ulcer Outcome Healed- Epithelialized Pain Scale: 0-10 Numeric Is Patient Pain Free? Yes - Nurse 3 - General Ulcer D/C NN Start: 12/15/24 10:20 Freq: Status: Active Protocol: Activity Type Activity Date Activity User E-sign Co-sign Detail Recorded Client Recorded Date Recorded By Document 12/15/24 10:45 [id number] 12/15/24 10:45 12/15/24 10:45 Is Patient Pain Free? Yes - Visit Discharge Discharge Condition Stable Ambulatory Status Ambulatory, Wheelchair Transportation Private Auto Accompanied by Medication Reconcilliation completed & Yes provided to patient/care provider Clinical Summary of Care Provided Yes Assessment/Plan Assessment/Plan (1) Non-pressure chronic ulcer of left heel and midfoot with fat layer exposed: CODE(S): L97.422 - Non-pressure chronic ulcer of left heel and midfoot with fat layer exposed PLAN: Patient was examined and evaluated. All findings were discussed with the patient. All questions were answered to the patient's satisfaction. After physical examination the patient's full-thickness wound/incision to the medial aspect of the left foot is healed. There is no evidence of skin breakdown or concern for new infection. The patient continue to ambulate as tolerated in regular slippers and or shoe gear. The patient can follow-up with me in private office as needed. Patient is grateful for her care and will be discharged from the wound care center today. 12/15/24 1111 Cosigner Signature (if applicable): CC: ~ Signed [facility]03-26-2025 Progress note Author Thompson Wrihgt [facility] Note Date/Time November 03, 2024 2:[address] [facility] [address] [place] [address] Progress Note - Wound Care 11/03/24 1415 MR#: [id number] Acct: [id number] Name: MILIND DAWSON Rep #:[id number] : 1955 69 From: Thompson Wright D PM PCP: Dr. Danny Herrera MD Status:R EG RCR Location: History of Present Illness Date of Service: 11/03/24 Chief Complaint: Left foot wound History of Wound: Chronic foot wound Progress of Wound: Full-thickness soft tissue mass status post excision of soft tissue mass with advancement flap closure. Subjective Subjective Mrs Dawson is a six 9-year-old female presented wound care center today for follow-up evaluation of full-thickness wound status post excision of benign skinlesion with advancement flap closure to the left heel. She has been compliant with dressing changes that have been done by her daughter. She admits to minimal to no pain to the left heel. Grateful for care. Denies trauma. Deniesconstitutional symptoms. No other pedal complaints at this time. Objective Data Objective Data Vital Signs: Vital Signs Temp Pulse Resp BP O2 Del Method 97.5 F L 94 18 134/72 H Room Air 11/03/24 11:16 11/03/24 11:16 11/03/24 11:16 11/03/24 11:16 11/03/24 11:16 Oxygen Delivery Method Room Air Weight: 75.75 kg Body Mass Index (BMI) 31.5 Lab / Micro Data Micro: Microbiology 10/27/24 11:38 Wound - Heel, Left Gram Stain - Final 10/27/24 11:38 Wound - Heel, Left Wound Culture - Final Morganella morganii sp morgani Staphylococcus epidermidis Meth. resistant Staph. aureus 10/27/24 11:38 Wound - Heel, Left Anaerobic Culture - Final Anaerobic cocci Physical Exam Narrative Vascular: DP and PT pulses are palpable. CFT is brisk. Skin temperature is warm to warm from proximal ankles to distal digits. Nonpitting edema is appreciated to the left lower extremity. Blanchable erythema appreciated to theleft heel. Neurological: Light touch intact. Protective station is present. Dermatological: Full-thickness wound to the lateral left heel measuring 0.5 x 1.5 x 0.1 cm. Evidence of hyperkeratotic periwound, improving. Malodor and erythema has improved. Excisional debridement down to and including subcutaneous tissue with a number 3mm dermal curette to the full-thickness wound to the left medial heel done without incident. Predebridement measurement was 0.3 x 1.0 x 0.1 cm. Postdebridement measurement is 0.5 x 1.5 x 0.1 cm. Musculoskeletal: No pain on palpation to close incision on the left heel. No pain with calf pressure. Debridement Note Debridement Note Debridement Free Text: Excisional debridement down to and including subcutaneoustissue with a number 3 mm dermal curette to the full-thickness wound to the leftmedial heel done without incident. Predebridement measurement was 0.3 x 1.0 x 0.1 cm. Postdebridement measurement is 0.5 x 1.5 x 0.1 cm. Post-Debridement Measurements and Additional Note: Post-Debridement Measurements/Treatment - Nurse 1 - General Ulcer Assessment Start: 10/12/24 08:20 Freq: Status: Active Protocol: ROEL.AYUSH Activity Type Activity Date Activity User E-sign Co-sign Detail Recorded Client Recorded Date Recorded By Document 10/12/24 08:20 ML [id number] 10/12/24 08:37 ML Document 10/20/24 11:01 MT [id number] 10/20/24 11:18 MT Document 10/27/24 11:16 GM [id number] 10/27/24 11:30 GM Document 11/03/24 11:16 KW [id number] 11/03/24 11:30 KW 10/12/24 10/20/24 10/27/24 08:20 11:01 11:16 - Today's Visit Information Type of service Nurse-only Follow-up Visit Follow-up Visit Visit (Physician/HEAT ENGINEERING TEACHER (Physician/HEAT ENGINEERING TEACHER ) ) Arrival Mode Ambulatory, Ambulatory, Ambulatory, Walker Walker Walker Transfer Assistance None None Accompanied by Patient Identification Verified (Name & Yes Yes Yes ) Patient Requires Transmission-Based No Precautions Height and Weight Body Mass Index (BMI) 31.5 31.5 31.5 BMI Classification Obese Obese Obese Vital Signs Temperature (97.8 F-99.1 F) 97 F L Temperature Source Temporal Pulse Rate (60-100) 116 H 114 H 111 H Pulse Location Monitor Monitor Monitor Respiratory Rate (12-18) 15 18 16 Respiratory rate source Observation Observation Observation Oxygen Delivery Method Room Air Room Air Blood Pressure (90/60-120/80) 157/74 H 146/74 H 146/73 H Blood Pressure Mean (mm Hg) 101 98 97 Source Monitor Monitor Monitor Position Sitting Sitting Blood Pressure Location Right Arm Left Arm History Since Last Visit- (Skip if this is Patient's initial visit) Have you changed medications since your No No last visit? Any new allergies or adverse reactions No No Had a fall/change in ADL's that may No No increase risk of falls Signs or symptoms of abuse and/or No No neglect since last visit Have you been in the hospital since your No No last visit? Has dressing in place as prescribed Yes Yes Yes Has compression in place as prescribed N/A Yes Yes Has offloadiing in place as prescribed N/A Yes Yes Experienced any changes in pain level or No Yes No management Left Footwear Surgical Shoe Regular Shoe Surgical Shoe with pressure with pressure relief insole relief insole Right Footwear Surgical Shoe Regular Shoe with pressure relief insole Pain Scale: 0-10 Numeric Is Patient Pain Free? No Yes Yes 11/03/24 11:16 WC - Today's Visit Information Type of service Follow-up Visit (Physician/HEAT ENGINEERING TEACHER ) Arrival Mode Ambulatory, Walker Transfer Assistance Accompanied by Patient Identification Verified (Name & Yes ) Patient Requires Transmission-Based Precautions Height and Weight Body Mass Index (BMI) 31.5 BMI Classification Obese Vital Signs Temperature (97.8 F-99.1 F) 97.5 F L Temperature Source Temporal Pulse Rate (60-100) 94 Pulse Location Monitor Respiratory Rate (12-18) 18 Respiratory rate source Observation Oxygen Delivery Method Room Air Blood Pressure (90/60-120/80) 134/72 H Blood Pressure Mean (mm Hg) 92 Source Monitor Position Semi-Fowlers Blood Pressure Location Left Arm History Since Last Visit- (Skip if this is Patient's initial visit) Have you changed medications since your No last visit? Any new allergies or adverse reactions No Had a fall/change in ADL's that may No increase risk of falls Signs or symptoms of abuse and/or No neglect since last visit Have you been in the hospital since your No last visit? Has dressing in place as prescribed Yes Has compression in place as prescribed Yes Has offloadiing in place as prescribed Yes Experienced any changes in pain level or No management Left Footwear Surgical Shoe with pressure relief insole Right Footwear Regular Shoe Pain Scale: 0-10 Numeric Is Patient Pain Free? Yes WC - Nurse 1 - General Ulcer Measurement Start: 10/12/24 08:20 Freq: Status: Active Protocol: Activity Type Activity Date Activity User E-sign Co-sign Detail Recorded Client Recorded Date Recorded By Document 10/20/24 11:01 MT [id number] 10/20/24 11:18 MT Document 10/27/24 11:16 GM [id number] 10/27/24 11:30 GM Document 11/03/24 11:16 KW [id number] 11/03/24 11:30 KW 10/20/24 10/27/24 11/03/24 11:01 11:16 11:16 Wound Center Nurse 1 #1 LT MED HEEL -Combined with other wound No -Current Size (cm) - Length 0.1 0.7 -Current Size (cm) - Width 0.1 3.5 -Current Size (cm) - Depth 0 0.4 -Total Square Cm 0.01 2.45 -Date of Last Picture (Recall this 10/20/24 10/27/24 field) -Photo Taken Yes -Epithelialization None Present Large 67-100% -Tunneling No -Undermining/Tunneling No -Circular Undermining No -Exudate Amt Small Medium Small -Exudate Type Serosanguineous Serosanguineous Serosanguineous -Wound Margin Distinct, Distinct, Outline Outline Attached Attached -Granulation Amt Medium (34-66%) Large (67-100%) -Granulation Quality [place] Red -Slough/Fibrin No -Necrosis Amt Small (1-33%) -Necrotic Tissue Type Adherent Slough -Texture ([place]-wound Skin Appearance) Assessed,Callus Assessed,Callus Assessed -Moisture ([place]-wound Skin Appearance) Assessed Assessed, Assessed Maceration -Color ([place]-wound Skin Appearance) Assessed Assessed Assessed -Temperature ([place]-wound Skin No Abnormality No Abnormality No Abnormality Appearance) (Pt Warm) (Pt Warm) (Pt Warm) -Tenderness on Palpation ([place]-wound Yes Yes No Skin Appearance) -Ulcer Cleansing Soap and Water Soap and Water Soap and Water -Foul Odor after Cleansing No No No -Anesthetic Used 5% Lidocaine 5% Lidocaine Gel Gel -Wound Comment(s) intact sutures WC - Nurse 2 - General Ulcer CM Notes Start: 10/12/24 08:20 Freq: Status: Active Protocol: Activity Type Activity Date Activity User E-sign Co-sign Detail Recorded Client Recorded Date Recorded By Document 10/20/24 11:36 [id number] 10/20/24 11:38 Document 10/27/24 11:40 [id number] 10/27/24 11:42 Document 11/03/24 11:41 [id number] 11/03/24 11:47 10/20/24 10/27/24 11/03/24 11:36 11:40 11:41 Wound Center Nurse 2 #1 LT MED HEEL -Time 11:36 11:40 11:43 -Correct Patient Yes Yes Yes -Correct Side, Site, Position Yes Yes Yes -Correct Procedure Yes Yes Yes -Procedure Performed Yes Yes Yes -Type of Procedure Debridement Debridement Debridement -Clinical Debridement Subcutaneous Subcutaneous Subcutaneous -Tissue Removed Subcutaneous Subcutaneous Subcutaneous -Post Debridement (cm) - Length 0.5 0.6 0.5 -Post Debridement (cm) - Width 3.0 2.4 1.5 -Post Debridement (cm) - Depth 0.9 0.4 0.2 -Total Square (Post) (cm) 1.50 1.44 0.75 -Area of Debridement (cm) - Length 0.5 0.6 0.5 -Area of Debridement (cm) - Width 3.0 2.4 1.5 -Total Square (Area) (cm) 1.50 1.44 0.75 -Tunneling No No No -Undermining/Tunneling No No No -Circular Undermining No No No -Wound/Ulcer Outcome Not Healed Not Healed Not Healed -Ulcer Cleansing Rinsed/ Rinsed/ Rinsed/ Irrigated with Irrigated with Irrigated with Saline Saline Saline -Foul Odor after Cleansing No No No -Bioengineered Tissue No No -Bleeding Controlled with Pressure Pressure Pressure -Treatment Response Procedure Procedure Procedure Tolerated Well Tolerated Well Tolerated Well -Offloading No No Yes -Type of Offloading Surgical Shoe -Assistive Device(s) Walker -Debridement - Subq, 1st 20sq cm Yes Yes Yes Pain Scale: 0-10 Numeric Is Patient Pain Free? Yes Yes Yes - Nurse 3 - General Ulcer D/C NN Start: 10/12/24 08:20 Freq: Status: Active Protocol: Activity Type Activity Date Activity User E-sign Co-sign Detail Recorded Client Recorded Date Recorded By Document 10/12/24 08:20 ML [id number] 10/12/24 08:37 ML Document 10/20/24 11:55 DL [id number] 10/20/24 11:57 DL Document 10/27/24 11:57 DL [id number] 10/27/24 11:59 DL Document 11/03/24 11:52 JF [id number] 11/03/24 11:53 JF 10/12/24 10/20/24 10/27/24 08:20 11:55 11:57 Pain Scale: 0-10 Numeric Is Patient Pain Free? No Yes Yes Wound Care Center Nurse 3 #1 LT MED HEEL -Ulcer Cleansing Soap and Water Soap and Water -Foul Odor after Cleansing No No No -Primary Dressing Applied Silvercel -Other Dressing betadine, betadine adaptic, undercasting -Primary Dressing Covered/Secured with Dry Gauze, Dry Gauze & Dry Gauze & Secured with Roll Gauze, Roll Gauze, Tape Secured with Secured with Tape Tape -Other Covering Brad Silvercell used today -Silvercel 1 -Wound Comment(s) Betadine and Dressing steri strips applied today applied per Dr. milagro Wright. LLE -Compression Wrap Brad Wrap Treatment Response Procedure Procedure Tolerated Well Tolerated Well WC - Visit Discharge Discharge Condition Stable Stable Ambulatory Status Ambulatory, Walker Walker Transportation Private Auto Private Auto Accompanied by Medication Reconcilliation completed & provided to patient/care provider Clinical Summary of Care Provided Facility Type Home Health Orders Sent Yes 11/03/24 11:52 Pain Scale: 0-10 Numeric Is Patient Pain Free? Yes Wound Care Center Nurse 3 #1 LT MED HEEL -Ulcer Cleansing Rinsed/ Irrigated with Saline -Foul Odor after Cleansing No -Primary Dressing Applied -Other Dressing bacitracin -Primary Dressing Covered/Secured with Dry Gauze & Roll Gauze -Other Covering -Silvercel -Wound Comment(s) LLE -Compression Wrap Brad Wrap Treatment Response WC - Visit Discharge Discharge Condition Stable Ambulatory Status Ambulatory, Walker Transportation Private Auto Accompanied by Medication Reconcilliation completed & Yes provided to patient/care provider Clinical Summary of Care Provided Yes Facility Type Orders Sent Assessment/Plan Assessment/Plan (1) Non-pressure chronic ulcer of left heel and midfoot with fat layer exposed: CODE(S): L97.422 - Non-pressure chronic ulcer of left heel and midfoot with fat layer exposed PLAN: Patient was examined and evaluated. All findings were discussed with the patient. All questions were answered to the patient's satisfaction. Excisional debridement down to and including subcutaneous tissue with a number 3mm dermal curette to the full-thickness wound to the left medial heel done without incident. Predebridement measurement was 0.3 x 1.0 x 0.1 cm. Postdebridement measurement is 0.5 x 1.5 x 0.1 cm. The left heel was wiped clean and patted dry. Triple antibiotic followed by dry sterile dressing and Brad wrap were applied to the left lower extremity. Patient was giving dressing changes and wound care orders as followed: They will switch the triple antibiotic to gentamicin ointment to be applied daily and wrap as above. Patient will also be placed on oral antibiotics doxycycline 100 mg twice daily for 2 weeks, ciprofloxacin 750 mg twice daily for 2 weeks based on microbiology and culture sensitivity results. Risk and benefits about antibiotics were discussed with the patient and her and she agreed to take the prescription as prescribed. Follow-up at the wound care center with Dr. Wright in 1 week. 11/03/241417 <Electronically signed by Thompson Wright DPM> Cosigner Signature (if applicable): CC: ~ Signed [facility] Work Phone: [phone] [facility] [address] [place] [address] Progress Note - Wound Care 11/03/241414 MR#: [id number] Acct: [id number] Name: MILIND DAWSON Rep #:[id number] : 1955 69 From: Thompson GARCIA PCP: Dr. Danny Herrera MD Status:R EG RCR Location: History of Present Illness Date of Service: 11/03/24 Chief Complaint: Left foot wound History of Wound: Chronic foot wound Progress of Wound: Full-thickness soft tissue mass status post excision of soft tissue mass with advancement flap closure. Subjective Subjective Mrs Dawson is a six 9-year-old female presented wound care center today for follow-up evaluation offull-thickness wound status post excision of benign skinlesion with advancement flap closure to theleft heel. She has been compliant with dressing changes that have been done by her daughter. She admits to minimal to no pain to the left heel. Grateful for care. Denies trauma. Deniesconstitutional symptoms. No other pedal complaints at this time. Objective Data Objective Data Vital Signs: Vital Signs Temp Pulse Resp BP O2 Del Method 97.5 F L 94 18 134/72 H Room Air 11/03/24 11:16 11/03/24 11:16 11/03/24 11:16 11/03/24 11:16 11/03/24 11:16 Oxygen Delivery Method Room Air Weight: 75.75 kg Body Mass Index (BMI) 31.5 Lab / Micro Data Micro: Microbiology 10/27/24 11:38 Wound - Heel, Left Gram Stain - Final 10/27/24 11:38 Wound - Heel, Left Wound Culture - Final Morganella morganii sp morgani Staphylococcus epidermidis Meth. resistant Staph. aureus 10/27/24 11:38 Wound - Heel, Left Anaerobic Culture - Final Anaerobic cocci Physical Exam Narrative Vascular: DP and PT pulses are palpable. CFT is brisk. Skin temperature is warm to warm from proximal ankles to distal digits. Nonpitting edema is appreciated to the left lower extremity. Blanchable erythema appreciated to theleft heel. Neurological: Light touch intact. Protective station is present. Dermatological: Full-thickness wound to the lateral left heel measuring 0.5 x 1.5 x 0.1 cm. Evidence of hyperkeratotic periwound, improving. Malodor and erythema has improved. Excisional debridement down to and including subcutaneous tissue with a number 3mm dermal curette to the full-thickness wound to the left medial heel done without incident. Predebridement measurementwas 0.3 x 1.0 x 0.1 cm. Postdebridement measurement is 0.5 x 1.5 x 0.1 cm. Musculoskeletal: No pain on palpation to close incision on the left heel. No pain with calf pressure. Debridement Note Debridement Note Debridement Free Text: Excisional debridement down to and including subcutaneoustissue with a number 3 mm dermal curette to the full-thickness wound to the leftmedial heel done without incident. Predebridement measurement was 0.3 x 1.0 x 0.1 cm. Postdebridement measurement is 0.5 x 1.5 x 0.1 cm. Post-Debridement Measurements and Additional Note: Post-Debridement Measurements/Treatment - Nurse 1 - General Ulcer Assessment Start: 10/12/24 08:20 Freq: Status: Active Protocol: DERRICK Activity Type Activity Date Activity User E-sign Co-sign Detail Recorded Client Recorded Date Recorded By Document 10/12/24 08:20 ML [id number] 10/12/24 08:37 ML Document 10/20/24 11:01 MT [id number] 10/20/24 11:18 MT Document 10/27/24 11:16 GM [id number] 10/27/24 11:30 GM Document 11/03/24 11:16 KW [id number] 11/03/24 11:30 KW 10/12/24 10/20/24 10/27/24 08:20 11:01 11:16 - Today's Visit Information Type of service Nurse-only Follow-up Visit Follow-up Visit Visit (Physician/HEAT ENGINEERING TEACHER (Physician/HEAT ENGINEERING TEACHER ) ) Arrival Mode Ambulatory, Ambulatory, Ambulatory, Walker Walker Walker Transfer Assistance None None Accompanied by Patient Identification Verified (Name & Yes Yes Yes ) Patient Requires Transmission-Based No Precautions Height and Weight Body Mass Index (BMI) 31.5 31.5 31.5 BMI Classification Obese Obese Obese Vital Signs Temperature (97.8 F-99.1 F) 97 F L Temperature Source Temporal Pulse Rate (60-100) 116 H 114 H 111 H Pulse Location Monitor Monitor Monitor Respiratory Rate (12-18) 15 18 16 Respiratory rate source Observation Observation Observation Oxygen Delivery Method Room Air Room Air Blood Pressure (90/60-120/80) 157/74 H 146/74 H 146/73 H Blood Pressure Mean (mm Hg) 101 98 97 Source Monitor Monitor Monitor Position Sitting Sitting Blood Pressure Location Right Arm Left Arm History Since Last Visit- (Skip if this is Patient's initial visit) Have you changed medications since your No No last visit? Any new allergies or adverse reactions No No Had a fall/change in ADL's that may No No increase risk of falls Signs or symptoms of abuse and/or No No neglect since last visit Have you been in the hospital since your No No last visit? Has dressing in place as prescribed Yes Yes Yes Has compression in place as prescribed N/A Yes Yes Has offloadiing in place as prescribed N/A Yes Yes Experienced any changes in pain level or No Yes No management Left Footwear Surgical Shoe Regular Shoe Surgical Shoe with pressure with pressure relief insole relief insole Right Footwear Surgical Shoe Regular Shoe with pressure relief insole Pain Scale: 0-10 Numeric Is Patient Pain Free? No Yes Yes 11/03/24 11:16 WC - Today's Visit Information Type of service Follow-up Visit (Physician/HEAT ENGINEERING TEACHER ) Arrival Mode Ambulatory, Walker Transfer Assistance Accompanied by Patient Identification Verified (Name & Yes ) Patient Requires Transmission-Based Precautions Height and Weight Body Mass Index (BMI) 31.5 BMI Classification Obese Vital Signs Temperature (97.8 F-99.1 F) 97.5 F L Temperature Source Temporal Pulse Rate (60-100) 94 Pulse Location Monitor Respiratory Rate (12-18) 18 Respiratory rate source Observation Oxygen Delivery Method Room Air Blood Pressure (90/60-120/80) 134/72 H Blood Pressure Mean (mm Hg) 92 Source Monitor Position Semi-Fowlers Blood Pressure Location Left Arm History Since Last Visit- (Skip if this is Patient's initial visit) Have you changed medications since your No last visit? Any new allergies or adverse reactions No Had a fall/change in ADL's that may No increase risk of falls Signs or symptoms of abuse and/or No neglect since last visit Have you been in the hospital since your No last visit? Has dressing in place as prescribed Yes Has compression in place as prescribed Yes Has offloadiing in place as prescribed Yes Experienced any changes in pain level or No management Left Footwear Surgical Shoe with pressure relief insole Right Footwear Regular Shoe Pain Scale: 0-10 Numeric Is Patient Pain Free? Yes - Nurse 1 - General Ulcer Measurement Start: 10/12/24 08:20 Freq: Status: Active Protocol: Activity Type Activity Date Activity User E-sign Co-sign Detail Recorded Client Recorded Date Recorded By Document 10/20/24 11:01 MT [id number] 10/20/24 11:18 [place] Document 10/27/24 11:16 GM [id number] 10/27/24 11:30 Document 11/03/24 11:16 KW [id number] 11/03/24 11:30 KW 10/20/24 10/27/24 11/03/24 11:01 11:16 11:16 Wound Center Nurse 1 #1 LT MED HEEL -Combined with other wound No -Current Size (cm) - Length 0.1 0.7 -Current Size (cm) - Width 0.1 3.5 -Current Size (cm) - Depth 0 0.4 -Total Square Cm 0.01 2.45 -Date of Last Picture (Recall this 10/20/24 10/27/24 field) -Photo Taken Yes -Epithelialization None Present Large 67-100% -Tunneling No -Undermining/Tunneling No -Circular Undermining No -Exudate Amt Small Medium Small -Exudate Type Serosanguineous Serosanguineous Serosanguineous -Wound Margin Distinct, Distinct, Outline Outline Attached Attached -Granulation Amt Medium (34-66%) Large (67-100%) -Granulation Quality [place] Red -Slough/Fibrin No -Necrosis Amt Small (1-33%) -Necrotic Tissue Type Adherent Slough -Texture ([place]-wound Skin Appearance) Assessed,Callus Assessed,Callus Assessed -Moisture ([place]-wound Skin Appearance) Assessed Assessed, Assessed Maceration -Color ([place]-wound Skin Appearance) Assessed Assessed Assessed -Temperature ([place]-wound Skin No Abnormality No Abnormality No Abnormality Appearance) (Pt Warm) (Pt Warm) (Pt Warm) -Tenderness on Palpation ([place]-wound Yes Yes No Skin Appearance) -Ulcer Cleansing Soap and Water Soap and Water Soap and Water -Foul Odor after Cleansing No No No -Anesthetic Used 5% Lidocaine 5% Lidocaine Gel Gel -Wound Comment(s) intact sutures WC - Nurse 2 - General Ulcer CM Notes Start: 10/12/24 08:20 Freq: Status: Active Protocol: Activity Type Activity Date Activity User E-sign Co-sign Detail Recorded Client Recorded Date Recorded By Document 10/20/24 11:36 [id number] 10/20/24 11:38 Document 10/27/24 11:40 JF [id number] 10/27/24 11:42 Document 11/03/24 11:41 [id number] 11/03/24 11:47 JF 10/20/24 10/27/24 11/03/24 11:36 11:40 11:41 Wound Center Nurse 2 #1 LT MED HEEL -Time 11:36 11:40 11:43 -Correct Patient Yes Yes Yes -Correct Side, Site, Position Yes Yes Yes -Correct Procedure Yes Yes Yes -Procedure Performed Yes Yes Yes -Type of Procedure Debridement Debridement Debridement -Clinical Debridement Subcutaneous Subcutaneous Subcutaneous -Tissue Removed Subcutaneous Subcutaneous Subcutaneous -Post Debridement (cm) - Length 0.5 0.6 0.5 -Post Debridement (cm) - Width 3.0 2.4 1.5 -Post Debridement (cm) - Depth 0.9 0.4 0.2 -Total Square (Post) (cm) 1.50 1.44 0.75 -Area of Debridement (cm) - Length 0.5 0.6 0.5 -Area of Debridement (cm) - Width 3.0 2.4 1.5 -Total Square (Area) (cm) 1.50 1.44 0.75 -Tunneling No No No -Undermining/Tunneling No No No -Circular Undermining No No No -Wound/Ulcer Outcome Not Healed Not Healed Not Healed -Ulcer Cleansing Rinsed/ Rinsed/ Rinsed/ Irrigated with Irrigated with Irrigated with Saline Saline Saline -Foul Odor after Cleansing No No No -Bioengineered Tissue No No -Bleeding Controlled with Pressure Pressure Pressure -Treatment Response Procedure Procedure Procedure Tolerated Well Tolerated Well Tolerated Well -Offloading No No Yes -Type of Offloading Surgical Shoe -Assistive Device(s) Walker -Debridement - Subq, 1st 20sq cm Yes Yes Yes Pain Scale: 0-10 Numeric Is Patient Pain Free? Yes Yes Yes WC - Nurse 3 - General Ulcer D/C NN Start: 10/12/24 08:20 Freq: Status: Active Protocol: Activity Type Activity Date Activity User E-sign Co-sign Detail Recorded Client Recorded Date Recorded By Document 10/12/24 08:20 ML [id number] 10/12/24 08:37 ML Document 10/20/24 11:55 DL [id number] 10/20/24 11:57 DL Document 10/27/24 11:57 DL [id number] 10/27/24 11:59 DL Document 11/03/24 11:52 JF [id number] 11/03/24 11:53 JF 10/12/24 10/20/24 10/27/24 08:20 11:55 11:57 Pain Scale: 0-10 Numeric Is Patient Pain Free? No Yes Yes Wound Care Center Nurse 3 #1 LT MED HEEL -Ulcer Cleansing Soap and Water Soap and Water -Foul Odor after Cleansing No No No -Primary Dressing Applied Silvercel -Other Dressing betadine, betadine adaptic, undercasting -Primary Dressing Covered/Secured with Dry Gauze, Dry Gauze & Dry Gauze & Secured with Roll Gauze, Roll Gauze, Tape Secured with Secured with Tape Tape -Other Covering Brad Silvercell used today -Silvercel 1 -Wound Comment(s) Betadine and Dressing steri strips applied today applied per Dr. milagro Wright. LLE -Compression Wrap Brad Wrap Treatment Response Procedure Procedure Tolerated Well Tolerated Well WC - Visit Discharge Discharge Condition Stable Stable Ambulatory Status Ambulatory, Walker Walker Transportation Private Auto Private Auto Accompanied by Medication Reconcilliation completed & provided to patient/care provider Clinical Summary of Care Provided Facility Type Home Health Orders Sent Yes 11/03/24 11:52 Pain Scale: 0-10 Numeric Is Patient Pain Free? Yes Wound Care Center Nurse 3 #1 LT MED HEEL -Ulcer Cleansing Rinsed/ Irrigated with Saline -Foul Odor after Cleansing No -Primary Dressing Applied -Other Dressing bacitracin -Primary Dressing Covered/Secured with Dry Gauze & Roll Gauze -Other Covering -Silvercel -Wound Comment(s) LLE -Compression Wrap Brad Wrap Treatment Response WC - Visit Discharge Discharge Condition Stable Ambulatory Status Ambulatory, Walker Transportation Private Auto Accompanied by Medication Reconcilliation completed & Yes provided to patient/care provider Clinical Summary of Care Provided Yes Facility Type Orders Sent Assessment/Plan Assessment/Plan (1) Non-pressure chronic ulcer of left heel and midfoot with fat layer exposed: CODE(S): L97.422 - Non-pressure chronic ulcer of left heel and midfoot with fat layer exposed PLAN: Patient was examined and evaluated. All findings were discussed with the patient. All questions were answered to the patient's satisfaction. Excisional debridement down to and including subcutaneous tissue with a number 3mm dermal curette to the full-thickness wound to the left medial heel done without incident. Predebridement measurementwas 0.3 x 1.0 x 0.1 cm. Postdebridement measurement is 0.5 x 1.5 x 0.1 cm. The left heel was wiped clean and patted dry. Triple antibiotic followed by dry sterile dressing and Brad wrap were applied to the left lower extremity. Patient was giving dressing changes and wound care orders as followed: They will switch the triple antibiotic to gentamicin ointment to be applied daily and wrap as above. Patient will also be placed on oral antibiotics doxycycline 100 mg twice daily for 2 weeks, ciprofloxacin 750 mg twice daily for 2 weeks based on microbiology and culture sensitivity results. Risk and benefits about antibiotics were discussed with the patient and her and she agreed to take the prescription as prescribed. Follow-up at the wound care center with Dr. Wright in 1 week. 11/03/24 1418 Cosigner Signature (if applicable): CC: ~ Signed [facility]03-19-2025 Progress note Author Thompson Wright [facility] Note Date/Time October 27, 2024 12: 42pm [facility] [address] [place] [address] Progress Note - Wound Care 10/27/24 1238 MR#: [id number] Acct: [id number] Name: MILIND DAWSON Rep #:[id number] : 1955 69 From: Thompson Ferreira PM PCP: Dr. Danny Herrera MD Status:R EG RCR Location: History of Present Illness Date of Service: 10/27/24 Chief Complaint: Left foot wound History of Wound: Chronic foot wound Progress of Wound: Full-thickness soft tissue mass status post excision of soft tissue mass with advancement flap closure. Subjective Subjective Mrs. Dawson is a 69-year-old female presenting with concern today for follow-up evaluation of full-thickness wound status post verruca plantaris removal to the left medial yeboah. Patient has been doing dressing changes with Betadine soaked gauze dry sterile dressing compression wrap. She mitts to some pain to the leftheel with weightbearing, and rates her pain 4?5 out of 10 on the pain scale. She denies any falls or trauma. Denies constitutional symptoms. The pain complaints at this time. Objective Data Objective Data Vital Signs: Vital Signs Temp Pulse Resp BP O2 Del Method 97 F L 111 H 16 146/73 H Room Air 10/20/24 11:01 10/27/24 11:16 10/27/24 11:16 10/27/24 11:16 10/27/24 11:16 Oxygen Delivery Method Room Air Weight: 75.75 kg Body Mass Index (BMI) 31.5 Physical Exam Narrative Vascular: DP and PT pulses are palpable. CFT is brisk. Skin temperature is warm to warm from proximal ankles to distal digits. Nonpitting edema is appreciated to the left lower extremity. Blanchable erythema appreciated to theleft heel. Neurological: Light touch intact. Protective station is present. Dermatological: Full-thickness wound to the lateral left heel after suture removal measuring 0.6 x 2.4 x 0.4 cm. Evidence of hyperkeratotic periwound. There is concern left heel infection secondary to some malodor and fibrogranulartissue. Excisional debridement down to including subcutaneous tissue with a number 3 mm dermal curette to the advancement flap closure incision to the left heel status post removal of a large plantar verruca without incident. Predebridement measurement was 0.4 x 2.1 x 0.2 cm. Postdebridement measurement is 0.6 x 2.4 x 0.4 cm Musculoskeletal: No pain on palpation to close incision on the left heel. No pain with calf pressure. Debridement Note Debridement Note Debridement Free Text: Excisional debridement down to including subcutaneous tissue with a number 3 mm dermal curette to the advancement flap closure incision to the left heel status post removal of a large plantar verruca withoutincident. Predebridement measurement was 0.4 x 2.1 x 0.2 cm. Postdebridement measurement is 0.6 x 2.4 x 0.4 cm Post-Debridement Measurements and Additional Note: Post-Debridement Measurements/Treatment WC - Nurse 1 - General Ulcer Assessment Start: 10/12/24 08:20 Freq: Status: Active Protocol: ROEL.LOWEXT Activity Type Activity Date Activity User E-sign Co-sign Detail Recorded Client Recorded Date Recorded By Document 10/12/24 08:20 ML [id number] 10/12/24 08:37 ML Document 10/20/24 11:01 MT [id number] 10/20/24 11:18 MT Document 10/27/24 11:16 GM [id number] 10/27/24 11:30 GM 10/12/24 10/20/24 10/27/24 08:20 11:01 11:16 WC - Today's Visit Information Type of service Nurse-only Follow-up Visit Follow-up Visit Visit (Physician/HEAT ENGINEERING TEACHER (Physician/HEAT ENGINEERING TEACHER ) ) Arrival Mode Ambulatory, Ambulatory, Ambulatory, Walker Walker Walker Transfer Assistance None None Accompanied by Patient Identification Verified (Name & Yes Yes Yes ) Patient Requires Transmission-Based No Precautions Height and Weight Body Mass Index (BMI) 31.5 31.5 31.5 BMI Classification Obese Obese Obese Vital Signs Temperature (97.8 F-99.1 F) 97 F L Temperature Source Temporal Pulse Rate (60-100) 116 H 114 H 111 H Pulse Location Monitor Monitor Monitor Respiratory Rate (12-18) 15 18 16 Respiratory rate source Observation Observation Observation Oxygen Delivery Method Room Air Room Air Blood Pressure (90/60-120/80) 157/74 H 146/74 H 146/73 H Blood Pressure Mean (mm Hg) 101 98 97 Source Monitor Monitor Monitor Position Sitting Sitting Blood Pressure Location Right Arm Left Arm History Since Last Visit- (Skip if this is Patient's initial visit) Have you changed medications since your No No last visit? Any new allergies or adverse reactions No No Had a fall/change in ADL's that may No No increase risk of falls Signs or symptoms of abuse and/or No No neglect since last visit Have you been in the hospital since your No No last visit? Has dressing in place as prescribed Yes Yes Yes Has compression in place as prescribed N/A Yes Yes Has offloadiing in place as prescribed N/A Yes Yes Experienced any changes in pain level or No Yes No management Left Footwear Surgical Shoe Regular Shoe Surgical Shoe with pressure with pressure relief insole relief insole Right Footwear Surgical Shoe Regular Shoe with pressure relief insole Pain Scale: 0-10 Numeric Is Patient Pain Free? No Yes Yes WC - Nurse 1 - General Ulcer Measurement Start: 10/12/24 08:20 Freq: Status: Active Protocol: Activity Type Activity Date Activity User E-sign Co-sign Detail Recorded Client Recorded Date Recorded By Document 10/20/24 11:01 MT [id number] 10/20/24 11:18 MT Document 10/27/24 11:16 [id number] 10/27/24 11:30 10/20/24 10/27/24 11:01 11:16 Wound Center Nurse 1 #1 LT MED HEEL -Combined with other wound No -Current Size (cm) - Length 0.1 0.7 -Current Size (cm) - Width 0.1 3.5 -Current Size (cm) - Depth 0 0.4 -Total Square Cm 0.01 2.45 -Date of Last Picture (Recall this 10/20/24 10/27/24 field) -Photo Taken Yes -Epithelialization None Present -Tunneling No -Undermining/Tunneling No -Circular Undermining No -Exudate Amt Small Medium -Exudate Type Serosanguineous Serosanguineous -Wound Margin Distinct, Outline Attached -Granulation Amt Medium (34-66%) -Granulation Quality [place] -Slough/Fibrin No -Necrosis Amt Small (1-33%) -Necrotic Tissue Type Adherent Slough -Texture ([place]-wound Skin Appearance) Assessed,Callus Assessed,Callus -Moisture ([place]-wound Skin Appearance) Assessed Assessed, Maceration -Color ([place]-wound Skin Appearance) Assessed Assessed -Temperature ([place]-wound Skin No Abnormality No Abnormality Appearance) (Pt Warm) (Pt Warm) -Tenderness on Palpation ([place]-wound Yes Yes Skin Appearance) -Ulcer Cleansing Soap and Water Soap and Water -Foul Odor after Cleansing No No -Anesthetic Used 5% Lidocaine Gel -Wound Comment(s) intact sutures WC - Nurse 2 - General Ulcer CM Notes Start: 10/12/24 08:20 Freq: Status: Active Protocol: Activity Type Activity Date Activity User E-sign Co-sign Detail Recorded Client Recorded Date Recorded By Document 10/20/24 11:36 [id number] 10/20/24 11:38 Document 10/27/24 11:40 [id number] 10/27/24 11:42 JF 10/20/24 10/27/24 11:36 11:40 Wound Center Nurse 2 #1 LT MED HEEL -Time 11:36 11:40 -Correct Patient Yes Yes -Correct Side, Site, Position Yes Yes -Correct Procedure Yes Yes -Procedure Performed Yes Yes -Type of Procedure Debridement Debridement -Clinical Debridement Subcutaneous Subcutaneous -Tissue Removed Subcutaneous Subcutaneous -Post Debridement (cm) - Length 0.5 0.6 -Post Debridement (cm) - Width 3.0 2.4 -Post Debridement (cm) - Depth 0.9 0.4 -Total Square (Post) (cm) 1.50 1.44 -Area of Debridement (cm) - Length 0.5 0.6 -Area of Debridement (cm) - Width 3.0 2.4 -Total Square (Area) (cm) 1.50 1.44 -Tunneling No No -Undermining/Tunneling No No -Circular Undermining No No -Wound/Ulcer Outcome Not Healed Not Healed -Ulcer Cleansing Rinsed/ Rinsed/ Irrigated with Irrigated with Saline Saline -Foul Odor after Cleansing No No -Bioengineered Tissue No -Bleeding Controlled with Pressure Pressure -Treatment Response Procedure Procedure Tolerated Well Tolerated Well -Offloading No No -Assistive Device(s) Walker -Debridement - Subq, 1st 20sq cm Yes Yes Pain Scale: 0-10 Numeric Is Patient Pain Free? Yes Yes - Nurse 3 - General Ulcer D/C NN Start: 10/12/24 08:20 Freq: Status: Active Protocol: Activity Type Activity Date Activity User E-sign Co-sign Detail Recorded Client Recorded Date Recorded By Document 10/12/24 08:20 ML [id number] 10/12/24 08:37 ML Document 10/20/24 11:55 DL [id number] 10/20/24 11:57 DL Document 10/27/24 11:57 DL [id number] 10/27/24 11:59 DL 10/12/24 10/20/24 10/27/24 08:20 11:55 11:57 Pain Scale: 0-10 Numeric Is Patient Pain Free? No Yes Yes Wound Care Center Nurse 3 #1 LT MED HEEL -Ulcer Cleansing Soap and Water Soap and Water -Foul Odor after Cleansing No No No -Primary Dressing Applied Silvercel -Other Dressing betadine, betadine adaptic, undercasting -Primary Dressing Covered/Secured with Dry Gauze, Dry Gauze & Dry Gauze & Secured with Roll Gauze, Roll Gauze, Tape Secured with Secured with Tape Tape -Other Covering Brad Silvercell used today -Silvercel 1 -Wound Comment(s) Betadine and Dressing steri strips applied today applied per Dr. milagro Wright. LLE -Compression Wrap Brad Wrap Treatment Response Procedure Procedure Tolerated Well Tolerated Well WC - Visit Discharge Discharge Condition Stable Stable Ambulatory Status Ambulatory, Walker Walker Transportation Private Auto Private Auto Accompanied by Facility Type Home Health Orders Sent Yes Assessment/Plan Assessment/Plan (1) Non-pressure chronic ulcer of left heel and midfoot with fat layer exposed: CODE(S): L97.422 - Non-pressure chronic ulcer of left heel and midfoot with fat layer exposed PLAN: Patient was examined and evaluated. All findings were discussed with the patient. All questions were answered to the patient's satisfaction. Excisional debridement down to including subcutaneous tissue with a number 3 mm dermal curette to the advancement flap closure incision to the left heel status post removal of a large plantar verruca without incident. Predebridement measurement was 0.4 x 2.1 x 0.2 cm. Postdebridement measurement is 0.6 x 2.4 x 0.4 cm. The hyperkeratotic periwound was also removed with a sterile pickup and #15blade without incident. The full-thickness wound was flushed with copious also normal saline. Culture of the full-thickness wound was taken and sent to microbiology for culture and sensitivity. Antibiotics will prescribe as needed. The full-thickness wound was dressed with silver alginate, dry sterile dressingand compression wrap. Patient will do every other day dressing changes. Patient can be weightbearing as tolerated in surgical shoe with preferred toe- touch with assistance of a walker. She can take [id number] Tylenol as needed for pain control. Follow-up at the wound care center with Dr. Wright in 1 week. 10/27/24 1242 <Electronically signed by Thompson Wright DPM> Cosigner Signature (if applicable): CC: ~ Signed [facility] Work Phone: [phone] 435-265903-19-[address] [facility] [address] [place] [address] Progress Note - Wound Care 10/27/24 1238 MR#: [id number] Acct: [id number] Name: MILIND DAWSON Rep #:[id number] : 1955 69 From: Thompson Ferreira PM PCP: Dr. Danny Herrera MD Status:R EG RCR Location: History of Present Illness Date of Service: 10/27/24 Chief Complaint: Left foot wound History of Wound: Chronic foot wound Progress of Wound: Full-thickness soft tissue mass status post excision of soft tissue mass with advancement flap closure. Subjective Subjective Mrs. Dawson is a 69-year-old female presenting with concern today for follow-up evaluation of full-thickness wound status post verruca plantaris removal to the left medial yeboah. Patient has been doing dressing changes with Betadine soaked gauze dry sterile dressing compression wrap. She mitts to some pain to the leftheel with weightbearing, and rates her pain 4?5 out of 10 on the pain scale. She denies any falls or trauma. Denies constitutional symptoms. The pain complaints at this time. Objective Data Objective Data Vital Signs: Vital Signs Temp Pulse Resp BP O2 Del Method 97 F L 111 H 16 146/73 H Room Air 10/20/24 11:01 10/27/24 11:16 10/27/24 11:16 10/27/24 11:16 10/27/24 11:16 Oxygen Delivery Method Room Air Weight: 75.75 kg Body Mass Index (BMI) 31.5 Physical Exam Narrative Vascular: DP and PT pulses are palpable. CFT is brisk. Skin temperature is warm to warm from proximal ankles to distal digits. Nonpitting edema is appreciated to the left lower extremity. Blanchable erythema appreciated to theleft heel. Neurological: Light touch intact. Protective station is present. Dermatological: Full-thickness wound to the lateral left heel after suture removal measuring 0.6 x 2.4 x 0.4 cm. Evidence of hyperkeratotic periwound. There is concern left heel infection secondary to some malodor and fibrogranulartissue. Excisional debridement down to including subcutaneous tissue with a number 3 mm dermal curette to the advancement flap closure incision to the left heel status post removal of a large plantar verrucawithout incident. Predebridement measurement was 0.4 x 2.1 x 0.2 cm. Postdebridement measurement is0.6 x 2.4 x 0.4 cm Musculoskeletal: No pain on palpation to close incision on the left heel. No pain with calf pressure. Debridement Note Debridement Note Debridement Free Text: Excisional debridement down to including subcutaneous tissue with a number 3mm dermal curette to the advancement flap closure incision to the left heel status post removal of a large plantar verruca withoutincident. Predebridement measurement was 0.4 x 2.1 x 0.2 cm. Postdebri caren measurement is 0.6 x 2.4 x 0.4 cm Post-Debridement Measurements and Additional Note: Post-Debridement Measurements/Treatment - Nurse 1 - General Ulcer Assessment Start: 10/12/24 08:20 Freq: Status: Active Protocol: ROEL.LOWEXAyesha Activity Type Activity Date Activity User E-sign Co-sign Detail Recorded Client Recorded Date Recorded By Document 10/12/24 08:20 ML [id number] 10/12/24 08:37 ML Document 10/20/24 11:01 MT [id number] 10/20/24 11:18 MT Document 10/27/24 11:16 GM [id number] 10/27/24 11:30 GM 10/12/24 10/20/24 10/27/24 08:20 11:01 11:16 - Today's Visit Information Type of service Nurse-only Follow-up Visit Follow-up Visit Visit (Physician/HEAT ENGINEERING TEACHER (Physician/HEAT ENGINEERING TEACHER ) ) Arrival Mode Ambulatory, Ambulatory, Ambulatory, Walker Walker Walker Transfer Assistance None None Accompanied by Patient Identification Verified (Name & Yes Yes Yes ) Patient Requires Transmission-Based No Precautions Height and Weight Body Mass Index (BMI) 31.5 31.5 31.5 BMI Classification Obese Obese Obese Vital Signs Temperature (97.8 F-99.1 F) 97 F L Temperature Source Temporal Pulse Rate (60-100) 116 H 114 H 111 H Pulse Location Monitor Monitor Monitor Respiratory Rate (12-18) 15 18 16 Respiratory rate source Observation Observation Observation Oxygen Delivery Method Room Air Room Air Blood Pressure (90/60-120/80) 157/74 H 146/74 H 146/73 H Blood Pressure Mean (mm Hg) 101 98 97 Source Monitor Monitor Monitor Position Sitting Sitting Blood Pressure Location Right Arm Left Arm History Since Last Visit- (Skip if this is Patient's initial visit) Have you changed medications since your No No last visit? Any new allergies or adverse reactions No No Had a fall/change in ADL's that may No No increase risk of falls Signs or symptoms of abuse and/or No No neglect since last visit Have you been in the hospital since your No No last visit? Has dressing in place as prescribed Yes Yes Yes Has compression in place as prescribed N/A Yes Yes Has offloadiing in place as prescribed N/A Yes Yes Experienced any changes in pain level or No Yes No management Left Footwear Surgical Shoe Regular Shoe Surgical Shoe with pressure with pressure relief insole relief insole Right Footwear Surgical Shoe Regular Shoe with pressure relief insole Pain Scale: 0-10 Numeric Is Patient Pain Free? No Yes Yes WC - Nurse 1 - General Ulcer Measurement Start: 10/12/24 08:20 Freq: Status: Active Protocol: Activity Type Activity Date Activity User E-sign Co-sign Detail Recorded Client Recorded Date Recorded By Document 10/20/24 11:01 W[place] [id number] 10/20/24 11:18 MT Document 10/27/24 11:16 [id number] 10/27/24 11:30 10/20/24 10/27/24 11:01 11:16 Wound Center Nurse 1 #1 LT MED HEEL -Combined with other wound No -Current Size (cm) - Length 0.1 0.7 -Current Size (cm) - Width 0.1 3.5 -Current Size (cm) - Depth 0 0.4 -Total Square Cm 0.01 2.45 -Date of Last Picture (Recall this 10/20/24 10/27/24 field) -Photo Taken Yes -Epithelialization None Present -Tunneling No -Undermining/Tunneling No -Circular Undermining No -Exudate Amt Small Medium -Exudate Type Serosanguineous Serosanguineous -Wound Margin Distinct, Outline Attached -Granulation Amt Medium (34-66%) -Granulation Quality [place] -Slough/Fibrin No -Necrosis Amt Small (1-33%) -Necrotic Tissue Type Adherent Slough -Texture ([place]-wound Skin Appearance) Assessed,Callus Assessed,Callus -Moisture ([place]-wound Skin Appearance) Assessed Assessed, Maceration -Color ([place]-wound Skin Appearance) Assessed Assessed -Temperature ([place]-wound Skin No Abnormality No Abnormality Appearance) (Pt Warm) (Pt Warm) -Tenderness on Palpation ([place]-wound Yes Yes Skin Appearance) -Ulcer Cleansing Soap and Water Soap and Water -Foul Odor after Cleansing No No -Anesthetic Used 5% Lidocaine Gel -Wound Comment(s) intact sutures - Nurse 2 - General Ulcer CM Notes Start: 10/12/24 08:20 Freq: Status: Active Protocol: Activity Type Activity Date Activity User E-sign Co-sign Detail Recorded Client Recorded Date Recorded By Document 10/20/24 11:36 JF [id number] 10/20/24 11:38 JF Document 10/27/24 11:40 [id number] 10/27/24 11:42 JF 10/20/24 10/27/24 11:36 11:40 Wound Center Nurse 2 #1 LT MED HEEL -Time 11:36 11:40 -Correct Patient Yes Yes -Correct Side, Site, Position Yes Yes -Correct Procedure Yes Yes -Procedure Performed Yes Yes -Type of Procedure Debridement Debridement -Clinical Debridement Subcutaneous Subcutaneous -Tissue Removed Subcutaneous Subcutaneous -Post Debridement (cm) - Length 0.5 0.6 -Post Debridement (cm) - Width 3.0 2.4 -Post Debridement (cm) - Depth 0.9 0.4 -Total Square (Post) (cm) 1.50 1.44 -Area of Debridement (cm) - Length 0.5 0.6 -Area of Debridement (cm) - Width 3.0 2.4 -Total Square (Area) (cm) 1.50 1.44 -Tunneling No No -Undermining/Tunneling No No -Circular Undermining No No -Wound/Ulcer Outcome Not Healed Not Healed -Ulcer Cleansing Rinsed/ Rinsed/ Irrigated with Irrigated with Saline Saline -Foul Odor after Cleansing No No -Bioengineered Tissue No -Bleeding Controlled with Pressure Pressure -Treatment Response Procedure Procedure Tolerated Well Tolerated Well -Offloading No No -Assistive Device(s) Walker -Debridement - Subq, 1st 20sq cm Yes Yes Pain Scale: 0-10 Numeric Is Patient Pain Free? Yes Yes - Nurse 3 - General Ulcer D/C NN Start: 10/12/24 08:20 Freq: Status: Active Protocol: Activity Type Activity Date Activity User E-sign Co-sign Detail Recorded Client Recorded Date Recorded By Document 10/12/24 08:20 ML [id number] 10/12/24 08:37 ML Document 10/20/24 11:55 DL [id number] 10/20/24 11:57 DL Document 10/27/24 11:57 DL [id number] 10/27/24 11:59 DL 10/12/24 10/20/24 10/27/24 08:20 11:55 11:57 Pain Scale: 0-10 Numeric Is Patient Pain Free? No Yes Yes Wound Care Center Nurse 3 #1 LT MED HEEL -Ulcer Cleansing Soap and Water Soap and Water -Foul Odor after Cleansing No No No -Primary Dressing Applied Silvercel -Other Dressing betadine, betadine adaptic, undercasting -Primary Dressing Covered/Secured with Dry Gauze, Dry Gauze & Dry Gauze & Secured with Roll Gauze, Roll Gauze, Tape Secured with Secured with Tape Tape -Other Covering Brad Silvercell used today -Silvercel 1 -Wound Comment(s) Betadine and Dressing steri strips applied today applied per Dr. milagro Wright. LLE -Compression Wrap Brad Wrap Treatment Response Procedure Procedure Tolerated Well Tolerated Well WC - Visit Discharge Discharge Condition Stable Stable Ambulatory Status Ambulatory, Walker Walker Transportation Private Auto Private Auto Accompanied by Facility Type Home Health Orders Sent Yes Assessment/Plan Assessment/Plan (1) Non-pressure chronic ulcer of left heel and midfoot with fat layer exposed: CODE(S): L97.422 - Non-pressure chronic ulcer of left heel and midfoot with fat layer exposed PLAN: Patient was examined and evaluated. All findings were discussed with the patient. All questions were answered to the patient's satisfaction. Excisional debridement down to including subcutaneous tissue with a number 3 mm dermal curette to the advancement flap closure incision to the left heel status post removal of a large plantar verrucawithout incident. Predebridement measurement was 0.4 x 2.1 x 0.2 cm. Postdebridement measurement is0.6 x 2.4 x 0.4 cm. The hyperkeratotic periwound was also removed with a sterile pickup and #15blade without incident. The full-thickness wound was flushed with copious also normal saline. Culture ofthe full-thickness wound was taken and sent to microbiology for culture and sensitivity. Antibiotics will prescribe as needed. The full-thickness wound was dressed with silver alginate, dry sterile dr david compression wrap. Patient will do every other day dressing changes. Patient can be weightbearing as tolerated in surgical shoe with preferred toe- touch with assistanceof a walker. She can take [id number] Tylenol as needed for pain control. Follow-up at the wound care center with Dr. Wright in 1 week. 10/27/24 1242 Cosigner Signature (if applicable): CC: ~ Signed [facility]03-12-2025 Progress note Author Thompson Wright [facility] Note Date/Time October 20, 2024 1:[address] [facility] [address] [place] [address] Progress Note - Wound Care 10/20/24 1312 MR#: [id number] Acct: [id number] Name: MILIND DAWSON Rep #:[id number] : 1955 69 From: Thompson Wright D PM PCP: Dr. Danny Herrera MD Status:R RCR Location: History of Present Illness Date of Service: 10/06/24 Chief Complaint: Left foot wound History of Wound: Chronic foot wound Progress of Wound: Full-thickness soft tissue mass status post excision of soft tissue mass with advancement flap closure. Subjective Subjective Mrs Dawson is a 69-year-old female who is status post excision of benign skin lesion with vascular closure to left lower extremity. DOS: 10/01/2024. Patient has been partial weightbearing with surgical shoe to left lower extremity with assistance of a walker. Patient has pain is improved. She is here today for suture removal but not looking forward to it. Otherwise she is doing well. Grateful for care. Denies trauma. Denies constitutional symptoms. No other pedal complaints at this time Objective Data Objective Data Vital Signs: Vital Signs Temp Pulse Resp BP O2 Del Method 97 F L 114 H 18 146/74 H Room Air 10/20/24 11:10/20/24 11:10/20/24 11:10/20/24 11:10/20/24 11:01 Oxygen Delivery Method Room Air Weight: 75.75 kg Body Mass Index (BMI) 31.5 Physical Exam Narrative Vascular: DP and PT pulses are palpable. CFT is brisk. Skin temperature is warm to warm from proximal ankles to distal digits. Nonpitting edema is appreciated to the left lower extremity. Blanchable erythema appreciated to theleft heel. Neurological: Light touch intact. Protective station is present. Dermatological: Surgery removed and showed evidence of a small full-thickness wound to the incision area measuring 0.5 x 3.0 x 0.9 cm. Wound base is granularwith no sign of infection. Excisional debridement down to including subcutaneous tissue with a number 3 mm dermal curette to the advancement flap closure incision to the left heel status post removal of a large plantar verruca without incident. Predebridement measurement was 0.3 x 2.8 x 0.5 cm. Postdebridement measurement is 0.5 x 3.0 x 0.9 cm. Musculoskeletal: No pain on palpation to close incision on the left heel. No pain with calf pressure. Debridement Note Debridement Note Debridement Free Text: Excisional debridement down to including subcutaneous tissue with a number 3 mm dermal curette to the advancement flap closure incision to the left heel status post removal of a large plantar verruca withoutincident. Predebridement measurement was 0.3 x 2.8 x 0.5 cm. Postdebridement measurement is 0.5 x 3.0 x 0.9 cm. 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 ) Arrival Mode Ambulatory, Ambulatory, Walker Walker Transfer Assistance None Accompanied by Patient Identification Verified (Name & Yes Yes ) Patient Requires Transmission-Based No Precautions Height and Weight Body Mass Index (BMI) 31.5 31.5 BMI Classification Obese Obese Vital Signs Temperature (97.8 F-99.1 F) 97 F L Temperature Source Temporal Pulse Rate (60-100) 116 H 114 H Pulse Location Monitor Monitor Respiratory Rate (12-18) 15 18 Respiratory rate source Observation Observation Oxygen Delivery Method Room Air Blood Pressure (90/60-120/80) 157/74 H 146/74 H Blood Pressure Mean (mm Hg) 101 98 Source Monitor Monitor Position Sitting Blood Pressure Location Right Arm History Since Last Visit- (Skip if this is Patient's initial visit) Have you changed medications since your No last visit? Any new allergies or adverse reactions No Had a fall/change in ADL's that may No increase risk of falls Signs or symptoms of abuse and/or No neglect since last visit Have you been in the hospital since your No last visit? Has dressing in place as prescribed Yes Yes Has compression in place as prescribed N/A Yes Has offloadiing in place as prescribed N/A Yes Experienced any changes in pain level or No Yes management Left Footwear Surgical Shoe Regular Shoe with pressure relief insole Right Footwear Surgical Shoe Regular Shoe with pressure relief insole Pain Scale: 0-10 Numeric Is Patient Pain Free? No Yes WC - Nurse 1 - General Ulcer Measurement Start: 10/12/24 08:20 Freq: Status: Active Protocol: Activity Type Activity Date Activity User E-sign Co-sign Detail Recorded Client Recorded Date Recorded By Document 10/20/24 11:01 WY [id number] 10/20/24 11:18 WY 10/20/24 11:01 Wound Center Nurse 1 #1 LT MED HEEL -Current Size (cm) - Length 0.1 -Current Size (cm) - Width 0.1 -Current Size (cm) - Depth 0 -Total Square Cm 0.01 -Date of Last Picture (Recall this 10/20/24 field) -Exudate Amt Small -Exudate Type Serosanguineous -Texture ([place]-wound Skin Appearance) Assessed,Callus -Moisture ([place]-wound Skin Appearance) Assessed -Color ([place]-wound Skin Appearance) Assessed -Temperature ([place]-wound Skin No Abnormality Appearance) (Pt Warm) -Tenderness on Palpation ([place]-wound Yes Skin Appearance) -Ulcer Cleansing Soap and Water -Foul Odor after Cleansing No -Wound Comment(s) intact sutures ROEL - Nurse 2 - General Ulcer CM Notes Start: 10/12/24 08:20 Freq: Status: Active Protocol: Activity Type Activity Date Activity User E-sign Co-sign Detail Recorded Client Recorded Date Recorded By Document 10/20/24 11:36 [id number] 10/20/24 11:38 10/20/24 11:36 Wound Center Nurse 2 -Time 11:36 -Correct Patient Yes -Correct Side, Site, Position Yes -Correct Procedure Yes -Procedure Performed Yes -Type of Procedure Debridement -Clinical Debridement Subcutaneous -Tissue Removed Subcutaneous -Post Debridement (cm) - Length 0.5 -Post Debridement (cm) - Width 3.0 -Post Debridement (cm) - Depth 0.9 -Total Square (Post) (cm) 1.50 -Area of Debridement (cm) - Length 0.5 -Area of Debridement (cm) - Width 3.0 -Total Square (Area) (cm) 1.50 -Tunneling No -Undermining/Tunneling No -Circular Undermining No -Wound/Ulcer Outcome Not Healed -Ulcer Cleansing Rinsed/ Irrigated with Saline -Foul Odor after Cleansing No -Bleeding Controlled with Pressure -Treatment Response Procedure Tolerated Well -Offloading No -Debridement - Subq, 1st 20sq cm Yes Pain Scale: 0-10 Numeric Is Patient Pain Free? Yes - Nurse 3 - General Ulcer D/C NN Start: 10/12/24 08:20 Freq: Status: Active Protocol: Activity Type Activity Date Activity User E-sign Co-sign Detail Recorded Client Recorded Date Recorded By Document 10/12/24 08:20 ML [id number] 10/12/24 08:37 ML Document 10/20/24 11:55 DL [id number] 10/20/24 11:57 DL 10/12/24 10/20/24 08:20 11:55 Pain Scale: 0-10 Numeric Is Patient Pain Free? No Yes Wound Care Center Nurse 3 #1 LT MED HEEL -Ulcer Cleansing Soap and Water -Foul Odor after Cleansing No No -Other Dressing betadine, betadine adaptic, undercasting -Primary Dressing Covered/Secured with Dry Gauze, Dry Gauze & Secured with Roll Gauze, Tape Secured with Tape -Other Covering Brad -Wound Comment(s) Betadine and steri strips applied per Dr. Wright. Treatment Response Procedure Tolerated Well WC - Visit Discharge Discharge Condition Stable Ambulatory Status Ambulatory, Walker Transportation Private Auto Accompanied by Facility Type Home Health Orders Sent Yes Assessment/Plan Assessment/Plan (1) Non-pressure chronic ulcer of left heel and midfoot with fat layer exposed: CODE(S): L97.422 - Non-pressure chronic ulcer of left heel and midfoot with fat layer exposed PLAN: Patient was examined and evaluated. All findings were discussed with the patient. All questions were answered to the patient's satisfaction. Once sutures were removed there showed evidence of a full-thickness wound that will now be treated with weekly debridements here at the wound care center. Excisional debridement down to including subcutaneous tissue with a number 3 mm dermal curette to the advancement flap closure incision to the left heel status post removal of a large plantar verruca without incident. Predebridement measurement was 0.3 x 2.8 x 0.5 cm. Postdebridement measurement is 0.5 x 3.0 x 0.9 cm. The full-thickness wound was flushed with copious also normal saline. Half-inch Steri-Strips were used to reeducate the flap closure incision line. Betadine paint was applied to the Steri-Strips followed by Betadine soaked gauzedry sterile dressing light compression wrap. Patient can be weightbearing as tolerated in surgical shoe with preferred toe- touch with assistance of a walker. She can take [id number] Tylenol as needed for pain control. Follow-up at the wound care center with Dr. Wright in 1 week. 10/20/24 1314 <Electronically signed by Thompson Wright DPM> Cosigner Signature (if applicable): CC: ~ Signed [facility] Work Phone: 1(789) 601-576603-12-[address] [facility] [address] [place] [address] Progress Note - Wound Care 10/20/24 1312 MR#: [id number] Acct: [id number] Name: MILIND DAWSON Rep #:[id number] : 1955 69 From: Thompson Ferreira PM PCP: Dr. Danny Herrera MD Status:R EG RCR Location: History of Present Illness Date of Service: 10/06/24 Chief Complaint: Left foot wound History of Wound: Chronic foot wound Progress of Wound: Full-thickness soft tissue mass status post excision of soft tissue mass with advancement flap closure. Subjective Subjective Mrs Dawson is a 69-year-old female who is status post excision of benign skin lesion with vascular closure to left lower extremity. DOS: 10/01/2024. Patient has been partial weightbearing with surgical shoe to left lower extremity with assistance of a walker. Patient has pain is improved. She is here today for suture removal but not looking forward to it. Otherwise she is doing well. Grateful for care. Denies trauma. Denies constitutional symptoms. No other pedal complaints at this time Objective Data Objective Data Vital Signs: Vital Signs Temp Pulse Resp BP O2 Del Method 97 F L 114 H 18 146/74 H Room Air 10/20/24 11:01 10/20/24 11:01 10/20/24 11:01 10/20/24 11:01 10/20/24 11:01 Oxygen Delivery Method Room Air Weight: 75.75 kg Body Mass Index (BMI) 31.5 Physical Exam Narrative Vascular: DP and PT pulses are palpable. CFT is brisk. Skin temperature is warm to warm from proximal ankles to distal digits. Nonpitting edema is appreciated to the left lower extremity. Blanchable erythema appreciated to theleft heel. Neurological: Light touch intact. Protective station is present. Dermatological: Surgery removed and showed evidence of a small full-thickness wound to the incisionarea measuring 0.5 x 3.0 x 0.9 cm. Wound base is granularwith no sign of infection. Excisional debridement down to including subcutaneous tissue with a number 3 mm dermal curette to the advancement flap closure incision to the left heel status post removal of a large plantar verrucawithout incident. Predebridement measurement was 0.3 x 2.8 x 0.5 cm. Postdebridement measurement is0.5 x 3.0 x 0.9 cm. Musculoskeletal: No pain on palpation to close incision on the left heel. No pain with calf pressure. Debridement Note Debridement Note Debridement Free Text: Excisional debridement down to including subcutaneous tissue with a number 3mm dermal curette to the advancement flap closure incision to the left heel status post removal of a large plantar verruca withoutincident. Predebridement measurement was 0.3 x 2.8 x 0.5 cm. Postdebri caren measurement is 0.5 x 3.0 x 0.9 cm. 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 ) Arrival Mode Ambulatory, Ambulatory, Walker Walker Transfer Assistance None Accompanied by Patient Identification Verified (Name & Yes Yes ) Patient Requires Transmission-Based No Precautions Height and Weight Body Mass Index (BMI) 31.5 31.5 BMI Classification Obese Obese Vital Signs Temperature (97.8 F-99.1 F) 97 F L Temperature Source Temporal Pulse Rate (60-100) 116 H 114 H Pulse Location Monitor Monitor Respiratory Rate (12-18) 15 18 Respiratory rate source Observation Observation Oxygen Delivery Method Room Air Blood Pressure (90/60-120/80) 157/74 H 146/74 H Blood Pressure Mean (mm Hg) 101 98 Source Monitor Monitor Position Sitting Blood Pressure Location Right Arm History Since Last Visit- (Skip if this is Patient's initial visit) Have you changed medications since your No last visit? Any new allergies or adverse reactions No Had a fall/change in ADL's that may No increase risk of falls Signs or symptoms of abuse and/or No neglect since last visit Have you been in the hospital since your No last visit? Has dressing in place as prescribed Yes Yes Has compression in place as prescribed N/A Yes Has offloadiing in place as prescribed N/A Yes Experienced any changes in pain level or No Yes management Left Footwear Surgical Shoe Regular Shoe with pressure relief insole Right Footwear Surgical Shoe Regular Shoe with pressure relief insole Pain Scale: 0-10 Numeric Is Patient Pain Free? No Yes - Nurse 1 - General Ulcer Measurement Start: 10/12/24 08:20 Freq: Status: Active Protocol: Activity Type Activity Date Activity User E-sign Co-sign Detail Recorded Client Recorded Date Recorded By Document 10/20/24 11:01 WY [id number] 10/20/24 11:18 WY 10/20/24 11:01 Wound Center Nurse 1 #1 LT MED HEEL -Current Size (cm) - Length 0.1 -Current Size (cm) - Width 0.1 -Current Size (cm) - Depth 0 -Total Square Cm 0.01 -Date of Last Picture (Recall this 10/20/24 field) -Exudate Amt Small -Exudate Type Serosanguineous -Texture ([place]-wound Skin Appearance) Assessed,Callus -Moisture ([place]-wound Skin Appearance) Assessed -Color ([place]-wound Skin Appearance) Assessed -Temperature ([place]-wound Skin No Abnormality Appearance) (Pt Warm) -Tenderness on Palpation ([place]-wound Yes Skin Appearance) -Ulcer Cleansing Soap and Water -Foul Odor after Cleansing No -Wound Comment(s) intact sutures WC - Nurse 2 - General Ulcer CM Notes Start: 10/12/24 08:20 Freq: Status: Active Protocol: Activity Type Activity Date Activity User E-sign Co-sign Detail Recorded Client Recorded Date Recorded By Document 10/20/24 11:36 MATTHEW [id number] 10/20/24 11:38 MATTHEW 10/20/24 11:36 Wound Center Nurse 2 -Time 11:36 -Correct Patient Yes -Correct Side, Site, Position Yes -Correct Procedure Yes -Procedure Performed Yes -Type of Procedure Debridement -Clinical Debridement Subcutaneous -Tissue Removed Subcutaneous -Post Debridement (cm) - Length 0.5 -Post Debridement (cm) - Width 3.0 -Post Debridement (cm) - Depth 0.9 -Total Square (Post) (cm) 1.50 -Area of Debridement (cm) - Length 0.5 -Area of Debridement (cm) - Width 3.0 -Total Square (Area) (cm) 1.50 -Tunneling No -Undermining/Tunneling No -Circular Undermining No -Wound/Ulcer Outcome Not Healed -Ulcer Cleansing Rinsed/ Irrigated with Saline -Foul Odor after Cleansing No -Bleeding Controlled with Pressure -Treatment Response Procedure Tolerated Well -Offloading No -Debridement - Subq, 1st 20sq cm Yes Pain Scale: 0-10 Numeric Is Patient Pain Free? Yes ROEL - Nurse 3 - General Ulcer D/C NN Start: 10/12/24 08:20 Freq: Status: Active Protocol: Activity Type Activity Date Activity User E-sign Co-sign Detail Recorded Client Recorded Date Recorded By Document 10/12/24 08:20 ML [id number] 10/12/24 08:37 ML Document 10/20/24 11:55 DL [id number] 10/20/24 11:57 DL 10/12/24 10/20/24 08:20 11:55 Pain Scale: 0-10 Numeric Is Patient Pain Free? No Yes Wound Care Center Nurse 3 #1 LT MED HEEL -Ulcer Cleansing Soap and Water -Foul Odor after Cleansing No No -Other Dressing betadine, betadine adaptic, undercasting -Primary Dressing Covered/Secured with Dry Gauze, Dry Gauze & Secured with Roll Gauze, Tape Secured with Tape -Other Covering Brad -Wound Comment(s) Betadine and steri strips applied per Dr. Wright. Treatment Response Procedure Tolerated Well WC - Visit Discharge Discharge Condition Stable Ambulatory Status Ambulatory, Walker Transportation Private Auto Accompanied by Facility Type Home Health Orders Sent Yes Assessment/Plan Assessment/Plan (1) Non-pressure chronic ulcer of left heel and midfoot with fat layer exposed: CODE(S): L97.422 - Non-pressure chronic ulcer of left heel and midfoot with fat layer exposed PLAN: Patient was examined and evaluated. All findings were discussed with the patient. All questions were answered to the patient's satisfaction. Once sutures were removed there showed evidence of a full-thickness wound that will now be treated with weekly debridements here at the wound care center. Excisional debridement down to including subcutaneous tissue with a number 3 mm dermal curette to the advancement flap closure incision to the left heel status post removal of a large plantar verrucawithout incident. Predebridement measurement was 0.3 x 2.8 x 0.5 cm. Postdebridement measurement is0.5 x 3.0 x 0.9 cm. The full-thickness wound was flushed with copious also normal saline. [id number]-[id number] were used to reeducate the flap closure incision line. Betadine paint was applied to the Steri-Strips followed by Betadine soaked gauzedry sterile dressing light compression wrap. Patient can be weightbearing as tolerated in surgical shoe with preferred toe- touch with assistanceof a walker. She can take [id number]-[id number]-[id number] Tylenol as needed for pain control. Follow-up at the wound care center with Dr. Wright in 1 week. 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 October 01 9:45am 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 October 06 11:00am Left foot soft tissue tumor resolved October 06, 2024 11:00am Health care maintenance acute 2024 8:00am Bilateral shoulder pain chronic [facility] 2024 8:00am Hypertension chronic November 01, 2024 8:00am Psoriatic arthritis chronic November 01, 2024 8:00am Type 2 diabetes mellitus chronic November 01, 2024 8:00am Left foot soft tissue tumor resolved November 01, 2024 8:00am 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 November 03, 2024 11:00am Foreign body in left foot acute December 01, 2024 10:00am 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 December 01, 2024 10:00am 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 December 15, 2024 8: 18am [facility] Work Phone: 1(131) 291-684401-29-2025 Evaluation note* Diagnosis Onset Date Resolution Status Admit Date 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 September 08 10:45am Left foot soft tissue tumor resolved September 08, 2024 10:45am Abnormal EKG acute September 1:57pm Preoperative evaluation to r ule out surgical contraindication acute Fe bruary 2024 1:57pm Hyperlipidemia chronic September 172024 1:57pm Hypertension chronic September 1:57pm Rheumatoid arthritis chronic Febr 2024 1:57pm Type 2 diabetes mellitus chronic September 17, 2024 1:57pm Neoplasm of unspecified behavior of bone, soft tissue, and skin acute October 01 9:45am 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 October 01 9:45am 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 October 06 11:00am Left foot soft tissue tumor resolved October 06, 2024 11:00am Health care maintenance acute M arch 2024 8:00am Bilateral shoulder pain chronic M arch 2024 8:00am Hypertension chronic November 01, 2024 8:00am Psoriatic arthritis chronic November 01, 2024 8:00am Type 2 diabetes mellitus chronic November 01, 2024 8:00am Left foot soft tissue tumor resolved November 01, 2024 8:00am 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 November 03, 2024 11:00am Foreign body in left foot acute December 01, 2024 10:00am 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 December 01, 2024 10:00am 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 December 15, 2024 8: 18am [facility] Work Phone: 1(992) 887-492012-12-2024 Evaluation note* Diagnosis Onset Date Resolution Status Admit Date Epilepsy acute July 22, 2024 8:22am Psoriatic arthritis acute Decem 2023 8:22am 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 September 08 10:45am Left foot soft tissue tumor resolved September 08, 2024 10:45am Abnormal EKG acute September 1:57pm Preoperative evaluation to janice ching out surgical contraindication acute Fe bruary 2024 1:57pm Hyperlipidemia chronic September 172024 1:57pm Hypertension chronic September 1:57pm Rheumatoid arthritis chronic Febr 2024 1:57pm Type 2 diabetes mellitus chronic September 17, 2024 1:57pm Neoplasm of unspecified behavior of bone, soft tissue, and skin acute October 01 9:45am 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 October 01 9:45am 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 October 06 11:00am Left foot soft tissue tumor resolved October 06, 2024 11:00am Health care maintenance acute 2024 8:00am Bilateral shoulder pain chronic 2024 8:00am Hypertension chronic November 01, 2024 8:00am Psoriatic arthritis chronic November 01, 2024 8:00am Type 2 diabetes mellitus chronic November 01, 2024 8:00am Left foot soft tissue tumor resolved November 01, 2024 8:00am 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 Danny Herrera MD Status:ADM IN Location: [place] [address] Providers Date of Admission: 05/23/24 Date of Discharge: 05/24/24 Primary Care Physician: Dr. 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/torch straightener Routine Comment: Consult: Tele-Neurology Routine Consulting Provider: [facility] Reason for Consult: Acute Ischemic Stroke/TIA vs seizure with Gabriel's paralysis EMERGENT Consult: No MD Notified: Yes Date Notified: 05/23/24 Time Notified: 09:07 Method of Notification: Answering Service Nursing Unit Staff Notify [facility] of Tele-Neurology Consult: Yes Reason For Visit: ALTERED MS AND HYPOXIA Diagnosis Discharge Diagnosis (1) Facial droop: Status: Acute Code(s): R29.810 - Facial weakness (2) Right sided weakness: Status: Acute Code(s): R53.1 - Weakness (3) Altered mental status: Status: Acute Code(s): R41.82 - Altered mental status, unspecified (4) Hypoxia: Status: Acute Code(s): R09.02 - Hypoxemia (5) Seizure disorder: Status: Acute Code(s): G40.909 - Epilepsy, unspecified, not intractable, without status epilepticus (6) Aspiration pneumonia: Status: Acute Code(s): J69.0 - Pneumonitis due to inhalation of food and vomit (7) Open wound of heel: Status: Acute Code(s): S91.309A - Unspecified open wound, unspecified foot, initial encounter (8) Thyroid nodule: Status: Acute Code(s): E04.1 - Nontoxic single thyroid nodule Medications at Discharge Home Medications acetaminophen 325 mg tablet 650 mg (2 x 325 mg) PO Q4H PRN PRN Headache/Temp>99F 09/08/17 secukinumab 150 mg/mL subcutaneous syringe (Cosentyx) 300 mg subcut Q4W 12/25/21 lisinopril 30 mg tablet See Rx Instructions .Route .COMPLEX #90 tabs 01/19/24 prednisone 5 mg tablet See Rx Instructions .Route .COMPLEX #90 tabs 01/19/24 atorvastatin 40 mg tablet 40 mg PO QHS #30 tabs 05/24/24 metformin 500 mg tablet 500 mg PO BID #60 tabs 05/24/24 topiramate 25 mg tablet 25 mg PO UD #180 tabs 05/24/24 Hospital Course Operations None Procedures None Summary of Care Provided Minutes Spent on Discharge: 55 Hospital Course: Patient is a 69-year-old female with a past medical history as outlined was admitted to the ED on 05/23/2024 with complaint of altered mental status with right-sided weakness and right facial droop which had largely resolved by the time she came into the ED. She had a history of seizure disorder first diagnosed in 2018 and was thought to be due to Ultram use. She subsequently had 2 other episodes here which were attributed to medication involved with a stress test at that time. She was placed on Keppra for about a year but this was discontinued subsequently by neurology. On the day of admission, stated that he had woken up early and had some noises coming from the area where she sleeps. She usually sleeps in a recliner. Initially thought she was snoring but went to check on her and she was having some gurgling sounds. He called his daughter and when she arrived patient was alert but did not seem to be cognitively intact. Family felt that it was similar to previous times when she had had seizures and she remained confused so they brought her into the ED. There were no generalized tonic-clonic movements noted. When the EMS arrived she was noted to have a right facial droop and right-sided weakness. Her facial droop subsequently resolved and power returned to normal. On admission she was hyperglycemic with blood sugar of 173 and A1c was 7.2. Lipid panel showed elevated total cholesterol of 268 with LDL of 173 and HDL of 54. TSH was normal. EKG showed no acute ST changes. CT of the brain showed mild atherosclerotic disease of bilateral carotid arteries per the CTA but no acute intracranial pathology on the CT brain. Chest x-ray showed hyperexpansion compatible with COPD. He had a complaint of a wound on her left foot but imaging done showed superficial callus. She was admitted and managed for acute encephalopathy with right facial droop and right-sided weakness rule out a stroke. She has CT of the brain as noted above. She also had EEG which did not show any evidence of any seizures. MRI of the brain also showed no evidence of acute stroke. Of note she was admitted on the stroke protocol. Neurology reviewed patient and thought his symptoms might be due to a seizure and that if the MRI and EEG were negative, she could be discharged home to follow-up with a neurologist on outpatient basis. She did have an MRI of the brain which was negative and EEG also was negative for any acute pathology. Since she had not previously tolerat (more content not included)...[facility] Onset Date Resolution Status Acute pain of both ears acut e Hypertension chronic Tachycardia chronic [facility] Work Phone: Evaluation note* Diagnosis Onset Date Resolution Status Preventative health care acu te Elevated glucose noneactive [facility] Work Phone: Evaluation noteNo assessment information available [facility] Work Phone: Summary Purpose Family History No Family History Records Found Relationship Condition Age at Onset Recorded Date/T osiris father Myocardial infarction Unknown Advance Directives No Advanced Directives Records Found Advance Directive Response Recorded Date/ Time Advance Directives No June 11:03am Living Will No June 21 11:03am Power of [employer] No June 21, 2020 11:03am Advance Directive Response Recorded Date/ Time Advance Directives No June 10:02am Living Will No July 04 10:02am Power of [employer] No July 04, 2020 10:02am Advance Directive Response Recorded Date/ Time Living Will No July 04 10:02am Do you have a Healthcare Power of [employer]? No July 04, 2020 10:02am Living Will No May 23 8:56am Do you have a Healthcare Power of [employer]? Yes May 23, 2024 8:56am Living Will No September 30 9:27am Do you have a Healthcare Power of [employer]ch? No September 30, 2024 9:27am Advance Directives No June 10:02am Advance Directive Response Recorded Date/ Time Living Will No July 04 10:02am Do you have a Healthcare Power of [employer]ch? No July 04, 2020 10:02am Living Will No September 30 9:27am Do you have a Healthcare Power of [employer]? No September 30, 2024 9:27am Advance Directives No June 10:02am Chief Complaint and Reason for Visit Chief Complaint 2 M FU PAIN- COPY PCP Reason for Visit Acute pain of both e ars Hypertension Tachycardia Chief Complaint PAIN- COPY PCP preventative Reason for Visit Preventative health care Elevated glucose Chief Complaint EORDER JOCELYNE AND VE LLANKI- PAIN- COPY PCP Chief Complaint Admit Date 2 MO FU July 22, 2024 8:22am wound September 08, 2024 1 0:45am Left heel/ankle September 10, 2024 1 2:26pm ACUTE SURG CLEARANCE September 17, 2024 1:57pm E-ORDER September 23, 2024 9:43am Excision of soft tissue mass of the left foot with October 01, 2024 9:45am PREOP October 01, 2024 10:22am N/V October 05, 2024 8:34pm wound October 06, 2024 11:00am 6 M FU November 01, 2024 8:0 0am wound November 03, 2024 11: 00am Reason for Visit Admit Date Epilepsy July 22, 2024 8:22am Psoriatic arthritis July 22, 2024 8:22am 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 September 08, 2024 10:45am Left foot soft tissue tumor August 10:45am Abnormal EKG September 17, 2024 1 :57pm Preoperative evaluation to janice cihng out surgical contraindication September 17, 2024 1:57pm Hyperlipidemia September 17, 2024 1 :57pm Hypertension September 17, 2024 1 :57pm Rheumatoid arthritis September 17, 2024 1:57pm Type 2 diabetes mellitus September 17 1:57pm Neoplasm of unspecified beha vior of bone, soft tissue, and skin October 01, 2024 9:45am 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 October 01, 2024 9:45am 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 October 06, 2024 11:00am Left foot soft tissue tumor September 11:00am Health care maintenance November 01, 2024 8:00am Bilateral shoulder pain November 01, 2024 8:00am Hypertension November 01, 2024 8:0 0am Psoriatic arthritis November 01, 2024 8:0 0am Type 2 diabetes mellitus November 01 8:00am Left foot soft tissue tumor November 01, 2024 8:00am 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 November 03, 2024 11:00am Chief Complaint Admit Date wound September 08, 2024 1 0:45am Left heel/ankle September 10, 2024 1 2:26pm ACUTE SURG CLEARANCE September 17, 2024 1:57pm E-ORDER September 23, 2024 9:43am Excision of soft tissue mass of the left foot with October 01, 2024 9:45am PREOP October 01, 2024 10:22am N/V October 05, 2024 8:34pm wound October 06, 2024 11:00am 6 M FU November 01, 2024 8:0 0am wound November 03, 2024 11: 00am wound December 01, 2024 10: 00am wound December 15, 2024 8:18am Reason for Visit Admit Date 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 September 08, 2024 10:45am Left foot soft tissue tumor August 10:45am Abnormal EKG September 17, 2024 1 :57pm Preoperative evaluation to janice ching out surgical contraindication September 17, 2024 1:57pm Hyperlipidemia September 17, 2024 1 :57pm Hypertension September 17, 2024 1 :57pm Rheumatoid arthritis September 17, 2024 1:57pm Type 2 diabetes mellitus September 17 1:57pm Neoplasm of unspecified beha vior of bone, soft tissue, and skin October 01, 2024 9:45am 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 October 01, 2024 9:45am 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 October 06, 2024 11:00am Left foot soft tissue tumor September 11:00am Health care maintenance November 01, 2024 8:00am Bilateral shoulder pain November 01, 2024 8:00am Hypertension November 01, 2024 8:0 0am Psoriatic arthritis November 01, 2024 8:0 0am Type 2 diabetes mellitus November 01 8:00am Left foot soft tissue tumor November 01, 2024 8:00am 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 November 03, 2024 11:00am Foreign body in left foot December 01 10:00am 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 December 01, 2024 10:00am 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 December 15, 2024 8:18am Chief Complaint Admit Date ACUTE SURG CLEARANCE September 17, 2024 1:57pm E-ORDER September 23, 2024 9:43am Excision of soft tissue mass of the left foot with October 01, 2024 9:45am PREOP October 01, 2024 10:22am N/V October 05, 2024 8:34pm wound October 06, 2024 11:00am 6 M FU November 01, 2024 8:0 0am wound November 03, 2024 11: 00am wound December 01, 2024 10: 00am wound December 15, 2024 8:18am 6 M FU January 13, 2025 7:55a m Reason for Visit Admit Date Abnormal EKG September 17, 2024 1 :57pm Preoperative evaluation to janice ching out surgical contraindication September 17, 2024 1:57pm Hyperlipidemia September 17, 2024 1 :57pm Hypertension September 17, 2024 1 :57pm Rheumatoid arthritis September 17, 2024 1:57pm Type 2 diabetes mellitus September 17 1:57pm Neoplasm of unspecified beha vior of bone, soft tissue, and skin October 01, 2024 9:45am 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 October 01, 2024 9:45am 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 October 06, 2024 11:00am Left foot soft tissue tumor September 11:00am Health care maintenance November 01, 2024 8:00am Bilateral shoulder pain November 01, 2024 8:00am Hypertension November 01, 2024 8:0 0am Psoriatic arthritis November 01, 2024 8:0 0am Type 2 diabetes mellitus November 01 8:00am Left foot soft tissue tumor November 01, 2024 8:00am 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 November 03, 2024 11:00am Foreign body in left foot December 01 10:00am 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 December 01, 2024 10:00am 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 Rolo Elizabeth MD Family Provider Active Dr. Danny Herrera MD Primary Care Provider Active Team Status: Inactive Member Role Status Dates Dr. Danny Herrera MD Primary Care Provider, Refer ring Provider Active Nazario Ha WOOD CAULKER, WOOD CAULKER-C Attending Provider Active Team Status: Inactive Member Role Status Dates Dr. Danny Herrera MD Primary Care Provider Active Dr. Leeanna Johnson MD Attending Provider, Referring Provider Active Team Status: Inactive Member Role Status Dates Dr. Danny Herrera MD Primary Care Provider Active Nazario Ha WOOD CAULKER, WOOD CAULKER-C Attending Provider, Referring Prov ider Active Team Status: Inactive Member Role Status Dates Dr. Danny Herrera MD Primary Care P rovider, Attending Provider, Referring Provider Active Dr. Leeanna Johnson MD Other Provider Active Team Status: Active Member Role Status Dates Dr. Danny Herrera MD Primary Care Provider Active Team Status: Inactive Member Role Status Dates Dr. Danny Herrera MD Primary Care Provider Active Start: July 22, 2024 End: July 22, 2024 Dr. Danny Herrera MD Referring Provider Active Start: July 22, 2024 End: July 22, 2024 Dr. Paresh Arellano MD Attending Provider Active Start: July 22, 2024 End: July 22, 2024 Team Status: Inactive Member Role Status Dates Dr. Danny Herrera MD Primary Care Provider Active Start: September 08, 2024 End: September 10, 2024 Dr. Thompson Wright DPM Attending Provider Active Start: September 08, 2024 End: September 10, 2024 Dr. Paresh Arellano MD Referring Provider Active Start: September 08, 2024 End: September 10, 2024 Team Status: Inactive Member Role Status Dates Dr. Danny Herrera MD Primary Care Provider Active Start: September 10, 2024 End: September 10, 2024 Dr. Thompson Wright DPM Attending Provider Active Start: September 10, 2024 End: September 10, 2024 Dr. Thompson Wright DPM Referring Provider Active Start: September 10, 2024 End: September 10, 2024 Team Status: Inactive Member Role Status Dates Dr. Danny Herrera MD Primary Care Provider Active Start: September 17, 2024 End: September 17, 2024 Dr. Danny Herrera MD Attending Provider Active Start: September 17, 2024 End: September 17, 2024 Dr. Danny Herrera MD Referring Provider Active Start: September 17, 2024 End: September 17, 2024 Team Status: Inactive Member Role Status Dates Dr. Danny Herrera MD Primary Care Provider Active Start: September 23, 2024 End: September 23, 2024 Dr. Paresh Arellano MD Attending Provider Active Start: September 23, 2024 End: September 23, 2024 Dr. Paresh Arellano MD Referring Provider Active Start: September 23, 2024 End: September 23, 2024 Team Status: Inactive Member Role Status Dates Dr. Danny Herrera MD Primary Care Provider Active Start: October 01, 2024 End: October 01, 2024 Dr. Thompson Wright DPM Attending Provider Active Start: October 01, 2024 End: October 01, 2024 Dr. Thompson Wright DPM Referring Provider Active Start: October 01, 2024 End: October 01, 2024 Team Status: Active Member Role Status Dates Dr. Danny Herrera MD Primary Care Provider Active Start: October 01, 2024 End: October 01, 2024 Dr. Heriberto Wyatt MD Attending Provider Active Start: October 01, 2024 End: October 01, 2024 Dr. Thompson Wright DPM Referring Provider Active Start: October 01, 2024 End: October 01, 2024 Team Status: Inactive Member Role Status Dates Dr. Danny Herrera MD Primary Care Provider Active Start: October 05, 2024 End: October 05, 2024 Ed Physician Provider Attending Provider Active Start: October 05, 2024 End: October 05, 2024 Ed Physician Provider Emergency Provider Active Start: October 05, 2024 End: October 05, 2024 Team Status: Inactive Member Role Status Dates Dr. Danny Herrera MD Primary Care Provider Active Start: October 06, 2024 End: October 08, 2024 Dr. Thompson Wright DPM Attending Provider Active Start: October 06, 2024 End: October 08, 2024 Dr. Paresh Arellano MD Referring Provider Active Start: October 06, 2024 End: October 08, 2024 Team Status: Inactive Member Role Status Dates Dr. Danny Herrera MD Primary Care Provider Active Start: November 01, 2024 End: November 01, 2024 Dr. Danny Herrera MD Attending Provider Active Start: November 01, 2024 End: November 01, 2024 Dr. Danny Herrera MD Referring Provider Active Start: November 01, 2024 End: November 01, 2024 Team Status: Inactive Member Role Status Dates Dr. Danny Herrera MD Primary Care Provider Active Start: November 03, 2024 End: November 08, 2024 Dr. Thompson Wright DPM Attending Provider Active Start: November 03, 2024 End: November 08, 2024 Dr. Paresh Arellano MD Referring Provider Active Start: November 03, 2024 End: November 08, 2024 Team Status: Inactive Member Role Status Dates Dr. Danny Herrera MD Primary Care Provider Active Start: December 01, 2024 End: December 08, 2024 Dr. Thompson Wright DPM Attending Provider Active Start: December 01, 2024 End: December 08, 2024 Dr. Paresh Arellano MD Referring Provider Active Start: December 01, 2024 End: December 08, 2024 Team Status: Inactive Member Role Status Dates Dr. Danny Herrera MD Primary Care Provider Active Start: December 15, 2024 End: January 06, 2025 Dr. Thompson Wright DPM Attending Provider Active Start: December 15, 2024 End: January 06, 2025 Dr. Paresh Arellano MD Referring Provider Active Start: December 15, 2024 End: January 06, 2025 Team Status: Inactive Member Role Status Dates Dr. Danny Herrera MD Primary Care Provider Active Start: January 13, 2025 End: January 13, 2025 Dr. Danny Herrera MD Referring Provider Active Start: January 13, 2025 End: January 13, 2025 Dr. Paresh Arellano MD Attending Provider Active Start: January 13, 2025 End: January 13, 2025 FOR RECORDS PERTAINING TO PATIENTS WHO ARE [...] BE BASED ON THE PRIMARY CLINICAL RECORDS. [facility]. provides no warranty or guarantee of the accuracy or completeness of information in this document.
[2025-02-18 08:15] LABS: Hematocrit 33.2 % (37-47); Hemoglobin 10.0 g/dL (12.0-15.0); Mean Corp Hgb Conc 30.1 g/dL (32-36); Mean Corpuscular Volume 85.1 fL (81-99); Mean Platelet Vol. 9.9 fl (6.2-12.0); Platelet Count 420 K/mm3 (150-450); RBC Distribution Width CV 14.9 % (11.6-14.6); RBC Distribution Width SD 46.0 fl (35.1-43.9); Red Blood Count 3.90 M/mm3 (4.2-5.4); White Blood Count 7.9 K/mm3 (4.4-11.0)
[2025-02-18 09:14] LABS: AST(SGOT) 15 U/L (<=31); Alanine Aminotransfer ALT/SGPT 12 U/L (<=34); Albumin, Serum 3.7 g/dL (3.4-4.8); Alkaline Phosphatase 118 U/L (35-104); Anion Gap 10 (5-15); BUN 22 mg/dL (4-19); BUN/Creat Ratio 30.6 RATIO (10-20); Calcium,Total 9.7 mg/dL (7.6-11.0); Carbon Dioxide 20.9 mmol/L (21.0-32.0); Chloride 108 mmol/L (98-108); Globulin 3.9 g/dL (2.2-4.2); Glucose 160 mg/dL (70-99); Magnesium 2.0 mg/dL (1.5-2.2); Potassium 4.2 mmol/L (3.3-5.1)
[2025-02-18 09:14] LABS: Ammonia 17.6 umol/L (11-51)
== END | disposition home or self-care (01) ==
LOC: MTLAB 07:19
PROVIDERS: PCP Internal Medicine; Referring Provider Psychiatry & Neurology Neurology; Visit Provider Psychiatry & Neurology Neurology
DX: G40.909 Epilepsy, unspecified, not intractable, without status epilepticus (principal)
CPT/HCPCS: 36415; 80053; 80201; 82140; 83735; 85027

== ENCOUNTER → 2025-03-01 | Outpatient (CLI) | payer OTHER, SELFPAY ==
[2025-03-01 10:57] LABS: Ferritin 108 ng/mL (22-378); Iron 16 ug/dL (50-170); Vitamin B12 339 pg/mL (180-914)
[2025-03-01 19:09] LABS: Microalbumin,Random Urine < 12.0 mg/L (<20 mg/L)
[2025-03-02 15:08] LABS: Folate, Hemolysate Test 358.0 ng/mL (Not Estab.); Folate, RBC (Hct) Test 34.1 % (34.0-46.6); Folates, RBC Test 1050 ng/mL (>498)
== END | disposition home or self-care (01) ==
PROVIDERS: PCP Internal Medicine; Referring Provider Psychiatry & Neurology Neurology; Visit Provider Psychiatry & Neurology Neurology
DX: D64.9 Anemia, unspecified (principal); Z86.2 Personal history of diseases of the blood and blood-forming organs and certain disorders involving the immune mechanism
CPT/HCPCS: 36415; 82043; 82607; 82728; 82747; 83540; 85014

== ENCOUNTER → 2025-03-08 | Outpatient (CLI) | payer OTHER, SELFPAY ==
[2025-03-08 18:30] LABS: Hematocrit 32.3 % (37-47); Hemoglobin 10.2 g/dL (12.0-15.0); Immature Granulocytes Count 0.010 X10^3/uL (0.0-0.0); Mean Corp Hgb Conc 31.6 g/dL (32-36); Mean Corpuscular Volume 82.4 fL (81-99); Mean Platelet Vol. 10.4 fl (6.2-12.0); NRBC Flagged by Analyzer 0 % (0-5); Platelet Count 466 K/mm3 (150-450); RBC Distribution Width CV 15.1 % (11.6-14.6); RBC Distribution Width SD 45.2 fl (35.1-43.9); Red Blood Count 3.92 M/mm3 (4.2-5.4); White Blood Count 7.5 K/mm3 (4.4-11.0)
[2025-03-08 19:20] LABS: CRP 47.60 mg/L (0.0-3.0)
[2025-03-08 19:35] LABS: AST(SGOT) 17 U/L (<=31); Alanine Aminotransfer ALT/SGPT 13 U/L (<=34); Albumin, Serum 3.7 g/dL (3.4-4.8); Alkaline Phosphatase 101 U/L (35-104); Anion Gap 14 (5-15); BUN 24 mg/dL (4-19); BUN/Creat Ratio 33.7 RATIO (10-20); Calcium,Total 9.9 mg/dL (7.6-11.0); Carbon Dioxide 20.0 mmol/L (21.0-32.0); Chloride 107 mmol/L (98-108); Globulin 4.1 g/dL (2.2-4.2); Glucose 166 mg/dL (70-99); Potassium 3.6 mmol/L (3.3-5.1)
== END | disposition home or self-care (01) ==
LOC: MTLAB 15:09
PROVIDERS: PCP Internal Medicine; Referring Provider Internal Medicine Rheumatology; Visit Provider Internal Medicine Rheumatology
DX: L40.59 Other psoriatic arthropathy (principal); M16.0 Bilateral primary osteoarthritis of hip; Z79.899 Other long term (current) drug therapy
CPT/HCPCS: 36415; 80053; 85025; 85652; 86140

== ENCOUNTER → 2025-03-11 | Outpatient (CLI) | payer OTHER, SELFPAY ==
[2025-03-11 13:58] LABS: Hepatitis B Surface Antigen Nonreactive (Nonreactive); Hepatitis C Antibody Nonreactive (Nonreactive)
[2025-03-15 22:07] LABS: QNTFERON TB Mitogen Value 1.26 IU/mL (.); QNTFERON TB Nil Value 0.01 IU/mL (.); QNTFERON TB1+ Ag Value 0.06 IU/mL (.); QNTFERON TB2+ Ag Value 0.06 IU/mL (.); QNTIFERON TB Positive Criteria Negative (Negative)
== END | disposition home or self-care (01) ==
LOC: MTRAD 09:11
PROVIDERS: PCP Internal Medicine; Referring Provider Internal Medicine Rheumatology; Visit Provider Internal Medicine Rheumatology
DX: L40.59 Other psoriatic arthropathy (principal); Z79.899 Other long term (current) drug therapy; L40.8 Other psoriasis; M16.0 Bilateral primary osteoarthritis of hip; M47.892 Other spondylosis, cervical region
CPT/HCPCS: 36415; 71046; 86480; 86706; 86803; 87340

== ENCOUNTER → 2025-03-25 | Outpatient (CLI) | payer OTHER, SELFPAY ==
--- OUTSIDE RECORDS SUMMARY | 2025-03-25 07:30 | XMS RPT_ITS | CCD ---
Author Organization [facility] Care Team Providers Care Service Technician Copier Name Role Phone Dr. Danny Herrera Primary [...] Dr. Paresh Arellano MD Attending Provider [phone] Kyle ROBLESM, Dr. Mackay Attending Provider Dr. Paresh Arellano MD Referring Provider Kyle ROBLESM, Dr. Mackay Referring Provider Dr. Danny Herrera MD Attending Provider [phone] Dr. Heriberto Wyatt MD Attending Provider Provider, Ed Physician Attending Provider Frank bronson Provider, Ed Physician Emergency Provider Frank Herrera MD, Dr. Delgado Primary Care Provider Dr. Danny Herrera MD Referring Provider [phone] Dr. Paresh Arellano MD Attending Provider Javier HEREDIA, Dr. Delgado Primary Care Provider Adan HEREDIA, Dr. Yoder Referring Provider Wright DPM, Dr. Mackay Attending Provider Kyle DPM, Dr. Mackay Referring Provider Javier HEREDIA, Dr. Delgado Primary Care Provider Javier HEREDIA, Dr. Delgado Attending Provider [phone] Javier HEREDIA, Dr. Delgado Referring Provider Wright DPM, Dr. Mackay Attending Provider Adan HEREDIA, Dr. Yoder Referring Provider Adan HEREDIA, Dr. Yoder Attending Provider [phone] Javier HEREDIA, Dr. Delgado Primary Care Provider Wright DPM, Dr. Mackay Attending Provider Adan HEREDIA, Dr. Yoder Referring Provider Javier HEREDIA, Dr. Delgado Referring Provider Oleghe, Efewongbe Primary Care Unavailable Quiana Wrighthan Attending Unavailable Paresh Arellano Referring Unavailable Oleghe, Efewongbe Primary Care Unavailable Vellantrey, Leeanna Attending Unavailable Vellanki, Leeanna Referring Unavailable Oleghe, Efewongbe Primary Care Unavailable Thompson Wright Attending Unavailable Oleghe, Efewongbe Primary Care Unavailable Provider, Ed Physician Attending Unavailab le Oleghe, Efewongbe Primary Care Unavailable Quiana Wrighthan Referring Unavailable Quiana Wrighthan Attending Unavailable Oleghe, Efewongbe Primary Care Unavailable Oleghe, Efewongbe Referring Unavailable Oleghe, Efewongbe Attending Unavailable Oleghe, Efewongbe Referring Unavailable Oleghe, Efewongbe Attending Unavailable Oleghe, Efewongbe Primary Care Unavailable Oleghe, Efewongbe Primary Care Unavailable Vellanki, Leeanna Attending Unavailable Vellanki, Leeanna Referring Unavailable Oleghe, Efewongbe Primary Care Unavailable Marilee Curtis Attending Unavailable Marilee Curtis Referring Unavailable Oleghe, Efewongbe Primary Care Unavailable Baddour, Paresh Attending Unavailable Baddour, Paresh Referring Unavailable Oleghe, Efewongbe Primary Care Unavailable Wright, Thompson Attending Unavailable Baddour, Paresh Referring Unavailable Oleghe, Efewongbe Primary Care Unavailable Wright, Thompson Attending Unavailable Baddour, Paresh Referring Unavailable Wright, Thompson Attending Unavailable Baddour, Paresh Referring Unavailable Oleghe, Efewongbe Primary Care Unavailable Wright, Thompson Attending Unavailable Baddour, Paresh Referring Unavailable Oleghe, Efewongbe Primary Care Unavailable Baddoshelby, Paresh Attending Unavailable Oleghe, Efewongbe Primary Care Unavailable Baddour, Paresh Referring Unavailable Oleghe, Efewongbe Primary Care Unavailable Adamarisdoshelby, Paresh Attending Unavailable Baddour, Paresh Referring Unavailable Oleghe, Efewongbe Primary Care Unavailable Oleghe, Efewongbe Consulting Unavailable Paresh Arellano Attending Unavailable Baddour, Paresh Referring Unavailable Oleghe, Efewongbe Primary Care Unavailable Oleghe, Efewongbe Referring Unavailable Adamarisdour, Paresh Attending Unavailable Oleghe, Efewongbe Primary Care Unavailable Oleghe, Efewongbe Attending Unavailable Oleghe, Efewongbe Referring Unavailable Oleghe, Efewongbe Primary Care Unavailable Oleghe, Efewongbe Referring Unavailable Yolanda Nuno Attending Unavailable Oleghe, Efewongbe Primary Care Unavailable Adeina, Maryr Consulting Unavailable Conchita Ding Attending Unavailable Jaqui Carey Admitting Unavailable Shantal, Nina Consulting Unavailable Cynthia Prince Consulting Unavailable Earl Ugalde Consulting Unavailable Rahat Garcia Consulting Unavailable Omar Esparza Consulting Unavailable ALONZO HILLS Consulting Unavailable Fransisca Leal Consulting Unavailable Mckenna Trujillo Consulting Unavailable Minesh Kaminski Consulting Unavailable Sofie Leahy Consulting Unavailable Salvador Chen Consulting Unavailable Dilcia Chapman Consulting Unavailable Liz Rasmussen Consulting Unavailable Toby Weinberg Consulting Unavailable Beata Meyer Consulting Unavailable Vaibhav José Consulting Unavailable Jaziel Owen Consulting Unavailable Fabien Murray Consulting Unavailable Rachel Candelaria Consulting Unavailable Rodriguez Garza Consulting Unavailabl e Helms, Peter Consulting Unavailable Childs, Rami Consulting Unavailable Cain Velazquez Consulting Unavailable Yolanda Carey Consulting Unavailable Yao Zapata Consulting Unavailable Jaqui Carey Consulting Unavailable Sergeam, Conchita Dilcia Consulting Unavailable Nazario Cook Consulting Unavailable Oleghe, Efewongbe Primary Care Unavailable Wright, Thompson Referring Unavailable Thompson Wright Attending Unavailable Oleghe, Efewongbe Primary Care Unavailable Oleghe, Efewongbe Referring Unavailable Paresh Arellano Attending Unavailable Oleghe, Efewongbe Referring Unavailable Oleghe, Efewongbe Attending Unavailable Oleghe, Efewongbe Primary Care Unavailable Oleghe, Efewongbe Primary Care Unavailable Tali Alvarado Consulting Unavailable Jaqui Carey Attending Unavailable Jaqui Carey Admitting Unavailable Nina Murguia Consulting Unavailable Cynthia Prince Consulting Unavailable Earl Ugalde Consulting Unavailable Rahat Garcia Consulting Unavailable Omar Esparza Consulting Unavailable ALONZO HILLS Consulting Unavailable Fransisca Leal Consulting Unavailable Mckenna Trujillo Consulting Unavailable Minesh Kaminski Consulting Unavailable Sofie Leahy Consulting Unavailable Salvador Chen Consulting Unavailable Dilcia Chapman Consulting Unavailable Liz Rasmussen Consulting Unavailable Toby Weinberg Consulting Unavailable Beata Meyer Consulting Unavailable Vaibhav José Consulting Unavailable Jaziel Owen Consulting Unavailable Fabien Murray Consulting Unavailable Rachel Candelaria Consulting Unavailable Greg, liliya Ireland Consulting UnavailHardeep Navarro Consulting Unavailable Childs, Rami Consulting Unavailable Cain Velazquez Consulting Unavailable Yolanda Carey Consulting Unavailable Yao Zapata Consulting Unavailable Jaqui Carey Consulting Unavailable Timur, Conchita Dilcia Attending Unavailable Timur, Conchita Dilcia Consulting Unavailable Nazario Cook Consulting Unavailable Kyle, Thompson Referring Unavailable Oleghe, Efewongbe Primary Care Unavailable Heriberto Wyatt Attending Unavailable Oleghe, Efewongbe Primary Care Unavailable Rufino Velez Attending Unavailable Oleghe, Efewongbe Primary Care Unavailable Oleghe, Efewongbe Referring Unavailable Paresh Arellano Attending Unavailable Oleghe, Efewongbe Primary Care Unavailable Oleghe, Efewongbe Referring Unavailable Oleghe, Efewongbe Attending Unavailable Oleghe, Efewongbe Attending Unavailable Oleghe, Efewongbe Referring Unavailable Oleghe, Efewongbe Primary Care Unavailable Oleghe, Efewongbe Referring Unavailable Paresh Arellano Attending Unavailable Oleghe, Efewongbe Primary Care Unavailable Oleghe, Efewongbe Primary Care Unavailable Oleghe, Efewongbe Referring Unavailable Paresh Arellano Attending Unavailable Allergies Allergy Classification Reported Allergen(s) Allergy Type Date of Onset Reaction(s) Facility (10 sources) adalimumab Drug Allergy 08-08-2021 unknown [facility] (10 sources) apremilast Drug Allergy 08-08-2021 unknown [facility] (10 sources) inFLIXimab Drug Allergy 08-08-2021 unknown [facility] (10 sources) inFLIXimab Drug Allergy 08-08-2021 [facility] (10 sources) leflunomide Drug Allergy 08-08-2021 Other [facility] Comment on above: LIVER ENZYMES ELEVAT ED (10 sources) Methotrexate Drug Allergy 08-08-2021 Other [facility] Comment on above: INCREASED LIVER ENZY MES (10 sources) sulfaSALAzine Drug Allergy 08-08-2021 [facility] Comment on above: ELEVATED LIVER ENZYM ES (10 sources) traMADol Drug Allergy 08-08-2021 seizures [facility] (1 source) adalimumab Drug Allergy 03-01-2025 [facility] (1 source) apremilast Drug Allergy 03-01-2025 [facility] (1 source) inFLIXimab Drug Allergy 03-01-2025 [facility] (1 source) leflunomide Drug Allergy 03-01-2025 [facility] (1 source) Methotrexate Drug Allergy 03-01-2025 [facility] (1 source) sulfaSALAzine Drug Allergy 03-01-2025 [facility] (1 source) traMADol Drug Allergy 03-01-2025 [facility] (1 source) infliximab-dyyb Drug allergy (disorder) 03-01-2025 [facility] Medications Current Medications Medication Drug Class(es) Dates Sig (Normalized) Sig (Original) 8 hr acetaminophen 650 mg extended release oral tablet (17 sources) Start: 02-21-2025 take 1 tablet by mouth every eight hours Acetaminophen (Tylenol 8 Hour) 650 mg tablet extended release Active 650 mg PO Q8H 30 10 0 October 01, 2024 1:00am Start: 09-08-2017 take 2 tablets by mo [facility] every four hours as needed for headache Acetaminophen 325 MG tablet Active 650 mg PO EVERY 4 HOURS NEEDED as needed for Headache/Temp>99F 0 September 08, 2017 1:00am Start: 09-08-2017 take 650 mg by mouth every four hours as needed Acetaminophen Active 650 MG PO EVERY 4 HOURS NEEDED September 08, 2017 1:00am ciprofloxacin 750 mg oral tablet (7 sources) Quinolone Antimicrobial Start: 11-03-2024 take 1 tablet by mouth twice daily Ciprofloxacin Hcl 750 mg tablet Active 750 mg PO TWICE A DAY 28 14 0 November 03, 2024 12:00am Diclofenac (3 sources) Nonsteroidal Anti-inflammatory Drug Start: 03-01-2025 apply 4 g topically four times daily as needed for pain Diclofenac Sodium 1 % gel Active 4 g TOPICAL .QID as needed for Neck pain/stiffness 100 7 March 01, 2025 12:00am doxycycline hyclate 100 mg oral capsule (7 sources) Tetracycline-class Drug Start: 11-03-2024 take 1 capsule by mouth twice daily Doxycycline Hyclate 100 mg capsule Active 100 mg PO TWICE A DAY 28 14 0 November 03, 2024 12:00am ferrous sulfate 325 mg oral tablet (12 sources) Start: 03-01-2025 take 1 tablet by mouth once daily Ferrous Sulfate 325 mg (65 mg iron) tablet Active 325 mg PO daily 30 6 March 01, 2025 12:00am Start: 06-01-2020 End: 10-29-2023 take 1 tablet by mouth once daily Ferrous Sulfate 325 mg (65 mg iron) tablet Discontinued 325 mg PO DAILY June 01, 2020 12:00am October 29, 2023 8:14am gentamicin 0.001 mg/mg topical ointment (7 sources) Start: 11-03-2024 Gentamicin 0.1 % ointment Active 1 NMA TOPICAL DAILY 15 14 0 November 03, 2024 12:00am Apply to the full-thickness ulceration to the left heel daily, cover with dry sterile dressing and Brad wrap. predniSONE 5 mg oral tablet (20 sources) Start: 09-30-2024 End: 03-03-2025 take 1 tablet by mouth once daily Prednisone 5 mg tablet Active 5 mg PO DAILY 10 0 March 03, 2025 2:33pm Start: 04-14-2023 End: 10-29-2023 take 3 tablets by mouth once daily Prednisone 20 mg tablet Discontinued 60 mg PO DAILY 9 0 April 14, 2023 12:00am October 29, 2023 [...] mg tablet Discontinued 0 .ROUTE .COMPLEX 90 0 January 19, 2024 4:49pm May 28, 2024 12:31pm inflammation TAKE 1 TABLET BY MOUTH EVERY DAY Start: 11-23-2014 End: 10-07-2019 apply 1 tablet topically three times daily as needed Prednisone 10 MG tablet Discontinued 10 mg PO 3 TIMES DAILY NEEDED as needed for Rash/Topical Irritation November 23, 2014 12:00am October 07, 2019 9:54am Completed/Discontinued Medications Medication Drug Class(es) Dates Sig (Normalized) Sig (Original) [id number] actuat albuterol 0.09 mg/actuat metered dose inhaler (8 sources) beta2-Adrenergic Agonist Start: 04-14-2023 End: 10-29-2023 Albuterol Sulfate 90 mcg/actuation HFA aerosol inhaler Discontinued 2 NMA INHALATION EVERY 6 HOURS as needed for shortness of breath or wheezing 8.5 0 April 14, 2023 12:00am October 29, 2023 8:14am Bronchitis Bronchitis, not specified as acute or chronic Start: 04-14-2023 take 1 puff(s) by in halation every six hours Albuterol Sulfate Active 2 PUFF INHALATION EVERY 6 HOURS 8.5 April 14, 2023 12:00am amoxicillin 500 mg oral capsule (8 sources) Penicillin-class Antibacterial Start: 04-14-2023 End: 10-29-2023 take 1 capsule by mouth three times daily Amoxicillin 500 mg capsule Discontinued 500 mg PO THREE TIMES A DAY 21 0 April 14, 2023 12:00am October 29, 2023 8:14am Bronchitis Bronchitis, not specified as acute or chronic amoxicillin 875 mg / clavulanate 125 mg oral tablet (14 sources) Penicillin-class Antibacterial Start: 10-06-2024 End: 11-01-2024 Amoxicillin-Pot Clavulanate 875-125 mg tablet Discontinued 1 {tbl} PO TWICE A DAY 28 14 0 October 06, 2024 1:00am November 01, 2024 8:12am Start: 05-24-2024 End: 06-08-2024 Amoxicillin-Pot Clavulanate 875-125 mg tablet Discontinued 1 {tbl} PO TWICE A DAY 14 0 May 24, 2024 12:00am June 08, 2024 10:08am atorvastatin 40 mg oral tablet (7 sources) HMG-CoA Reductase Inhibitor Start: 05-24-2024 End: 09-17-2024 take 1 tablet by mouth at bedtime Atorvastatin 40 mg tablet Discontinued 40 mg PO AT BEDTIME 30 2 May 24, 2024 12:00am September 17, 2024 3:06pm baclofen 5 mg oral tablet (10 sources) gamma-Aminobutyric Acid-ergic Agonist Start: 10-12-2020 End: 11-10-2020 take 1 tablet by mouth three times daily as needed for pain Baclofen 5 mg tablet Discontinued 5 mg PO THREE TIMES A DAY as needed for muscle pain/spasm 90 1 October 12, 2020 1:00am November 10, 2020 8:40am flurbiprofen 100 mg oral tablet (20 sources) Nonsteroidal Anti-inflammatory Drug Start: 06-08-2024 End: 07-22-2024 take 1 tablet by mouth three times daily as needed for pain Flurbiprofen 100 mg tablet Discontinued 100 mg PO THREE TIMES A DAY as needed for pain 90 June 08, 2024 12:00am July 22, 2024 10:14am Start: 10-12-2020 End: 12-25-2021 take 1 tablet by mouth three times daily as needed Flurbiprofen 100 mg tablet Discontinued 0 .ROUTE .COMPLEX 90 0 March 30, 2021 1:49pm December 25, 2021 8:20am TAKE 1 TAB BY MOUTH 3 TIMES DAILY NEEDED FOR PAIN.TAKE WITH FOOD.DO NOT TAKE WITH OTHER NSAIDS 1 ml guselkumab 100 mg/ml auto-injector (10 sources) Interleukin-23 Antagonist Start: 07-04-2020 End: 12-25-2021 Guselkumab (Tremfya) 100 mg/mL auto-injector Discontinued 100 mg SC every 4 weeks July 04, 2020 1:00am December 25, 2021 8:20am hydroCHLOROthiazide 12.5 mg oral capsule (10 sources) Thiazide Diuretic Start: 09-08-2017 End: 03-21-2020 take 1 capsule by mouth once daily Hydrochlorothiazide 12.5 MG capsule Discontinued 12.5 mg PO DAILY 60 0 September 08, 2017 1:00am March 21, 2020 8:16am inFLIXimab-dyyb 100 mg injection (10 sources) Tumor Necrosis Factor Master Start: 09-04-2017 End: 03-21-2020 take 100 mg intravenously every month Infliximab-Dyyb 100 MG/10 ML recon soln Discontinued 100 mg IV EVERY MONTH September 04, 2017 1:00am March 21, 2020 8:16am levETIRAcetam 1000 mg oral tablet (10 sources) Start: 09-08-2017 End: 03-21-2020 take 1 tablet by mouth twice daily Levetiracetam 1,000 MG tablet Discontinued 1000 mg PO TWICE A DAY 120 0 September 08, 2017 1:00am March 21, 2020 8:16am lisinopril 30 mg oral tablet (20 sources) Angiotensin Converting Enzyme Inhibitor Start: 06-02-2020 End: 08-20-2024 take 1 tablet by mouth once daily Lisinopril 30 mg tablet Discontinued 0 .ROUTE .COMPLEX 90 0 January 19, 2024 4:49pm May 28, 2024 12:31pm blood pressure TAKE 1 TABLET BY MOUTH EVERY DAY Start: 05-23-2020 End: 06-02-2020 Lisinopril 20 mg tablet Disc ontinued 30 mg PO DAILY 60 1 May 23, 2020 2:36pm June 02, 2020 [...] 2020 1:20pm meloxicam 7.5 mg oral tablet (20 sources) Nonsteroidal Anti-inflammatory Drug Start: 11-10-2020 End: [...] 9:54am metFORMIN hydrochloride 500 mg oral tablet (20 sources) Biguanide Start: 05-24-2024 End: 09-17-2024 take 1 tablet by mouth twice daily Metformin 500 mg tablet Discontinued 500 mg PO TWICE A DAY 60 2 May 24, 2024 12:00am September 17, 2024 3:07pm Start: 05-03-2024 End: 05-23-2024 take 1 tablet by mouth twice daily Metformin 750 mg tablet extended release 24 hr Discontinued 750 mg PO TWICE A DAY 180 90 May 03, 2024 8:28am May 23, 2024 6:57am Start: 10-29-2023 End: 05-03-2024 take 1 tablet by mouth twice daily Metformin 500 mg tablet extended release 24 hr Discontinued 500 mg PO TWICE A DAY 180 1 February 27, 2024 1:14pm May 03, 2024 8:32am 24 hr metoprolol succinate 25 mg extended release oral tablet (10 sources) beta-Adrenergic Master Start: 06-11-2021 End: 10-29-2023 take 1 tablet by mouth once daily Metoprolol Succinate 25 mg tablet extended release 24 hr Discontinued 25 mg PO DAILY 60 June 11, 2021 12:00am October 29, 2023 8:15am naproxen 500 mg oral tablet (14 sources) Nonsteroidal Anti-inflammatory Drug Start: 07-22-2024 End: [...] mg tablet Discontinued 0 .ROUTE .COMPLEX 90 3 November 29, 2022 3:33pm October 29, 2023 8:15am TAKE 1 TABLET BY MOUTH EVERY DAY 1 ml secukinumab 150 mg/ml prefilled syringe (19 sources) Interleukin-17A Antagonist Start: 12-25-2021 End: 09-17-2024 Secukinumab (Cosentyx) 150 mg/mL syringe Discontinued 300 mg SC every 4 weeks December 25, 2021 12:00am September 17, 2024 3:07pm skin start 4 wks after last weekly dose;inject [id number] doses each in different thigh/upper arm/abdominal areas. last took in March Start: 06-01-2020 End: 06-21-2020 Secukinumab (Cosentyx) 150 m g/mL syringe Discontinued 150 mg SC every 4 weeks June 01, 2020 12:00am June 21, 2020 10:04am start 4 weeks after last weekly dose topiramate 100 mg oral tablet (20 sources) Start: 06-08-2024 End: 03-01-2025 take 1 tablet by mouth twice daily Topiramate 100 mg tablet Discontinued 100 mg PO TWICE A DAY 60 August 26, 2024 1:00am February 06, 2025 5:08pm Start: 05-24-2024 End: 07-22-2024 take 1 tablet by mouth twice daily, then take 2 tablets by mouth twice daily, then take 3 tablets by mouth twice daily, then take 4 tablets by mouth twice daily Topiramate 25 mg tablet Discontinued 25 mg PO DIRECTED 180 2 May 24, 2024 12:00am July 22, 2024 [...] lower limb] Onset: 09-28-2024 Chronic Cardiac dysrhythmias (11 sources) Tachycardia; Translations: [Tachycardia, unspecified] Episodic Chronic obstructive pulmonary disease and bronchiectasis (8 sources) Bronchitis; Translations: [Bronchitis, not specified as acute or chronic] 04-14-2023 Episodic Chronic ulcer of skin (20 sources) Non-pressure chronic ulcer of left heel and midfoot with fat layer exposed; Translations: [Non-pressure chronic ulcer of 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] Onset: 01-06-2025 09-01-2024 Chronic Deficiency and other anemia (13 sources) Anemia; Translations: [Anemia, unspecified] 02-09-2021 Episodic Deficiency and other anemia (1 source) Anemia, unspecified; Translations: [Anemia, unspecified] Onset: 03-07-2025 Episodic Diabetes mellitus with complications (1 source) Type 2 diabetes mellitus with other specified complication; Translations: [Type 2 diabetes mellitus with other specified complication] Onset: 10-05-2024 Chronic Diabetes mellitus without complication (16 sources) Type 2 diabetes mellitus; Translations: [Type 2 diabetes mellitus without complications] Onset: 05-03-2024 11-01-2024 Chronic Diabetes mellitus without complication (9 sources) Other abnormal glucose; Translations: [Other abnormal glucose] 11-27-2022 Episodic Disorders of lipid metabolism (12 sources) Hyperlipidemia; Translations: [Hyperlipidemia, unspecified] Onset: 05-03-2024 05-28-2024 Chronic Epilepsy; convulsions (20 sources) Epilepsy; Translations: [Other generalized epilepsy and epileptic syndromes, not intractable, without status epilepticus] Onset: 05-24-2024 07-04-2020 Chronic Comment on above: LAST SEIZURE 05/2024 Epilepsy; convulsions (10 sources) Seizure; Translations: [Unspecified convulsions] 11-10-2020 Episodic Essential hypertension (19 sources) Hypertensive disorder; Translations: [Essential (primary) hypertension] Chronic Neoplasms of unspecified nature or uncertain behavior (20 sources) Neoplastic disease; Translations: [Neoplasm of unspecified behavior of bone, soft tissue, and skin] Onset: 01-06-2025 10-01-2024 Episodic Osteoarthritis (1 source) Bilateral primary osteoarthritis of hip; Translations: [Bilateral primary osteoarthritis of hip] Onset: 03-11-2025 Chronic Osteoporosis (10 sources) Osteoporosis; Translations: [Age-related osteoporosis without current pathological fracture] 02-09-2021 Chronic Other aftercare (7 sources) Post-discharge follow-up; Translations: [Encounter for follow-up examination after completed treatment for conditions other than malignant neoplasm] 05-28-2024 Episodic Other aftercare (1 source) Other long-term (current) drug therapy; Translations: [Other long-term (current) drug therapy] Onset: 03-11-2025 Episodic Other aftercare (1 source) Encounter for follow-up examination after completed treatment for conditions other than malignant neoplasm; Translations: [Encounter for follow-up examination after completed treatment for conditions other than malignant neoplasm] Onset: 02-04-2025 Episodic Other connective tissue disease (7 sources) Weakness of face muscles; Translations: [Facial weakness] 06-01-2024 Episodic Other connective tissue disease (4 sources) Musculoskeletal pain; Translations: [Myalgia, other site] 03-01-2025 Episodic Other ear and sense organ disorders (1 source) Otalgia; Translations: [Otalgia, bilateral] Episodic Other ear and sense organ disorders (10 sources) Impacted cerumen; Translations: [Impacted cerumen, right ear] 02-09-2021 Episodic Other ear and sense organ disorders (1 source) Otalgia, bilateral; Translations: [Otalgia, unspecified] Episodic Other ear and sense organ disorders (9 sources) Pain of ear structure; Translations: [Otalgia, bilateral] 08-08-2021 Episodic Other hematologic conditions (10 sources) Raised cardiac enzyme or marker; Translations: [Other specified abnormalities of plasma proteins] 09-05-2017 Episodic Other hematologic conditions (1 source) Personal history of diseases of the blood and blood-forming organs and certain disorders involving the immune mechanism; Translations: [Personal history of diseases of the blood and blood-forming organs and certain disorders involving the immune mechanism] Onset: 03-01-2025 Episodic Other inflammatory condition of skin (20 sources) Psoriatic arthritis; Translations: [Arthropathic psoriasis, unspecified] 06-01-2020 Chronic Other inflammatory condition of skin (1 source) Other psoriatic arthropathy; Translations: [Other psoriatic arthropathy] Onset: 03-11-2025 Chronic Other inflammatory condition of skin (1 source) Other psoriasis; Translations: [Other psoriasis] Onset: 03-11-2025 Chronic Other lower respiratory disease (14 sources) Hypoxia; Translations: [Hypoxemia] 05-23-2024 Episodic Other non-traumatic joint disorders (10 sources) Joint pain; Translations: [Pain in unspecified joint] 07-04-2020 Episodic Other non-traumatic joint disorders (12 sources) Shoulder pain; Translations: [Pain in right shoulder] 11-01-2024 Episodic Other nutritional; endocrine; and metabolic disorders (10 sources) Obese class I; Translations: [Obesity, unspecified] 09-04-2017 Chronic Residual codes; unclassified (7 sources) Altered mental status; Translations: [Altered mental status, unspecified] 06-01-2024 Episodic Rheumatoid arthritis and related disease (13 sources) Rheumatoid arthritis; Translations: [Rheumatoid arthritis, unspecified] 09-04-2017 Chronic Spondylosis; intervertebral disc disorders; other back problems (20 sources) Chronic low back pain; Translations: [Chronic low back pain] 07-04-2020 Episodic Superficial injury; contusion (13 sources) Foreign body of foot; Translations: [Superficial foreign body, left foot, initial encounter] Onset: 01-06-2025 12-01-2024 Episodic Syncope (10 sources) Syncope; Translations: [Syncope and collapse] 09-05-2017 Episodic Thyroid disorders (16 sources) Thyroid nodule; Translations: [Nontoxic single thyroid nodule] Onset: 05-24-2024 06-21-2024 Chronic Transient cerebral ischemia (7 sources) Transient cerebral ischemia; Translations: [Transient cerebral ischemic attack, unspecified] 05-23-2024 Chronic Unclassified (3 sources) Wound care center Past or Other Problems Problem Classification Problem Date Documented Date Episodic/Chronic Aspiration pneumonitis; food/vomitus (9 sources) Aspiration pneumonia; Translations: [Pneumonitis due to inhalation of food and vomit] Onset: 05-24-2024 06-01-2024 Episodic Malaise and fatigue (8 sources) Right hemiparesis; Translations: [Weakness] Onset: 05-24-2024 06-01-2024 Episodic Open wounds of extremities (16 sources) Open wound, heel; Translations: [Unspecified open [...] conditions (not mental disorders or infectious disease) (12 sources) Electrocardiogram abnormal; Translations: [Abnormal electrocardiogram [ECG] [...] Test Name Value Interpretation Reference Range Facility Quantiferon TB-Gold+on 03-15 QFT MITOGEN TONYA 1.26 IU/mL Normal . [facility] Comment on above: Performed By: #### L 3890.6301, L3400.8000, L3890.6102, L3890.6202 ####[facility] [address] [place], [address] QFT NIL VALUE 0.01 IU/mL Normal . [facility] Comment on above: Performed By: #### L 3890.6301, L3400.8000, L3890.6102, L3890.6202 ####[facility] [address] [place], [address] QFT TB GOLD+ Comment Normal . [facility] Comment on above: Result Comment: Jemal tiFERON-TB Gold Plus is a qualitative indirect test forM tuberculosis infection (including disease) and isintended for use in conjunction with risk assessment,radiography, and other medical and diagnostic evaluations.The QuantiFERON-TB Gold Plus result is determined bysubtracting the Nil value from either TB antigen (Ag)value. The Mitogen tube serves as a control for the test. Performed By: #### L 3890.6301, L3400.8000, L3890.6102, L3890.6202 ####[facility] [address] [place], [address] QFT TB POS CRIT Negative Normal Negative [facility] Comment on above: Result Comment: No r esponse to M tuberculosis antigens detected.Infection with M tuberculosis is unlikely, but high riskindividuals should be considered for additional testing(ATS/IDSA/CDC Clinical Practice Guidelines, 2017). Thereference range is an Antigen minus Nil result of <0.35IU/mL.The specimen received for QuantiFERON testing was incubatedby the ordering institution. Specific procedures outlinedin our Directory of Services and in the package insert forthe QuantiFERON Gold (In Tube) test must be followed toenable for proper stimulation of cells for the productionof interferon gamma. Chemiluminescence immunoassaymethodologyPerformed at: [address] [id number] Director: Jaxon Dunham PhD, Phone: [phone] Performed By: #### L 3890.6301, L3400.8000, L3890.6102, L3890.6202 ####[facility] [address] [place], [place], [id number] QFT TB1+ AG TONYA 0.06 IU/mL Normal . [facility] Comment on above: Performed By: #### L 3890.6301, L3400.8000, L3890.6102, L3890.6202 ####[facility] [address] [place], [address] QFT TB2+ AG TONYA 0.06 IU/mL Normal . [facility] Comment on above: Performed By: #### L 3890.6301, L3400.8000, L3890.6102, L3890.6202 ####[facility] [address] [place], [address] Chest PA and Lateralon 03-11 Chest PA and Lateral Normal [facility] Hepatitis B Surface Antibody on 03-11-2025 HEP B Surf Ab Non-Reactive Normal [facility] Comment on above: Result Comment: <8.5 mIU/mL: Non-Reactive8.5<= x <11.5 mIU/mL: Indeterminate>=11.5 mIU/mL: Reactive Non Reactive: Inconsistent with immunity less than <10 mIU/mL Reactive: Consistent with immunity greater than or equal to 10 mIU/mL Performed By: #### L 3890.6301, L3400.8000, L3890.6102, L3890.6202 ####[facility] [address] [place], [place], [phone] Hepatitis C Antibodyon 03-11 Hepatitis C Ab Non-Reactive Normal Nonreactive [facility] Comment on above: Result Comment: Reac tive: Presumptive evidence of antibodies to HCV. [facility] for supplemental [facility].Non-Reactive: Antibodies to HCV were not detected; does notexclude the possibility of exposure to HCVReactive Results are presumptive evidence of antibodies toHCV. Follow CDC recommendations for supplemental testing.Order confirmation testing: HCV Quant by PCR testing -[facility] #[id number] Non Reactive: < 0.8 Equivocal: >/= 0.8 to < 1.0 Reactive: >/= 1.0The [facility] requires that a reactive/equivocal HCV antibodyresult be sent out for confirmation. HCV Quant by PCRtesting. Performed By: #### L 3890.6301, L3400.8000, L3890.6102, L3890.6202 ####[facility] [address] [place], [address] L3890.6102on 03-11-2025 HEP B Surf Ag Non-Reactive Normal Nonreactive [facility] Comment on above: Result Comment: Reac tive: Presumptive evidence of HBV. Repeatedly reactivesamples must be confirmed using a neutralization test(ElecIdentias HBsAg Confirmatory Test)Non-Reactive: HBsAg not detected; does not exclude thepossibility of exposure to HBV Performed By: #### L 3890.6301, L3400.8000, L3890.6102, L3890.6202 ####[facility] [address] [place], [address] CBC W/Diff, Automatedon 07- Absolute Lymph 2.15 X10 3/uL Normal 0.83-4.51 [facility] Comment on above: Performed By: #### L 100.0100, L501.6710, L500.4050, L101.9900 ####[facility] [address] [place], [address] Absolute Neut 4.7 X10 3/uL Normal 2.0-7.7 [facility] Comment on above: Performed By: #### L 100.0100, L501.6710, L500.4050, L101.9900 ####[facility] [address] [place], [address] Basophils/100 WBC (Bld) 0.4 % Normal 0-1 [facility] Comment on above: Performed By: #### L 100.0100, L501.6710, L500.4050, L101.9900 ####[facility] [address] [place], [address] Eosinophils/100 WBC (Bld) 1.1 % Normal 0-5 [facility] Comment on above: Performed By: #### L 100.0100, L501.6710, L500.4050, L101.9900 ####[facility] [address] [place], [address] Erythrocyte distribution width (RBC) [Ratio] 15.1 % High 11.6-14.6 [facility] Comment on above: Performed By: #### L 100.0100, L501.6710, L500.4050, L101.9900 ####[facility] [address] [place], [address] Hematocrit (Bld) [Volume fraction] 32.3 % Low 37-47 [facility] Comment on above: Performed By: #### L 100.0100, L501.6710, L500.4050, L101.9900 ####[facility] [address] [place], [address] Hemoglobin (Bld) [Mass/Vol] 10.2 g/dL Low 12.0-15.0 [facility] Comment on above: Performed By: #### L 100.0100, L501.6710, L500.4050, L101.9900 ####[facility] [address] [place], [address] IG% 0.100 Normal 0.0-0.9 [facility] Comment on above: Result Comment: IG% - Immature Granulocytes (promyelocytes, myelocytes andmetamyelocytes) > 1% indicates that a LEFT SHIFT is Present. Performed By: #### L 100.0100, L501.6710, L500.4050, L101.9900 ####[facility] [address] [place], [address] Lymphocytes/100 WBC (Bld) 28.5 % Normal 19-41 [facility] Comment on above: Performed By: #### L 100.0100, L501.6710, L500.4050, L101.9900 ####[facility] [address] [place], [address] MCH (RBC) [Entitic mass] 26.0 pg Low 27.0-32.0 [facility] Comment on above: Performed By: #### L 100.0100, L501.6710, L500.4050, L101.9900 ####[facility] [address] [place], [address] MCHC (RBC) [Mass/Vol] 31.6 g/dL Low 32-36 [facility] Comment on above: Performed By: #### L 100.0100, L501.6710, L500.4050, L101.9900 ####[facility] [address] [place], [address] MCV (RBC) [Entitic vol] 82.4 fL Normal 81-99 [facility] Comment on above: Performed By: #### L 100.0100, L501.6710, L500.4050, L101.9900 ####[facility] [address] [place], [address] Monocytes/100 WBC (Bld) 7.3 % Normal 0-10 [facility] Comment on above: Performed By: #### L 100.0100, L501.6710, L500.4050, L101.9900 ####[facility] [address] [place], [address] Neutrophils/100 WBC (Bld) 62.6 % Normal 47-70 [facility] Comment on above: Performed By: #### L 100.0100, L501.6710, L500.4050, L101.9900 ####[facility] [address] [place], [address] Nucleated RBC (Bld) [#/Vol] 0 10*3/uL Normal 0-5 [facility] Comment on above: Performed By: #### L 100.0100, L501.6710, L500.4050, L101.9900 ####[facility] [address] [place], [address] Platelet mean volume (Bld) [Entitic vol] 10.4 fL Normal 6.2-12.0 [facility] Comment on above: Performed By: #### L 100.0100, L501.6710, L500.4050, L101.9900 ####[facility] [address] [place], [address] Platelets (Bld) [#/Vol] 466 10*3/uL High 150-450 [facility] Comment on above: Performed By: #### L 100.0100, L501.6710, L500.4050, L101.9900 ####[facility] [address] [place], [address] RBC (Bld) [#/Vol] 3.92 10*6/uL Low 4.2-5.4 [facility] Comment on above: Performed By: #### L 100.0100, L501.6710, L500.4050, L101.9900 ####[facility] [address] [place], [address] RDW SD 45.2 fl High 35.1-43.9 [facility] Comment on above: Performed By: #### L 100.0100, L501.6710, L500.4050, L101.9900 ####[facility] [address] [place], [address] WBC (Bld) [#/Vol] 7.5 10*3/uL Normal 4.4-11.0 [facility] Comment on above: Performed By: #### L 100.0100, L501.6710, L500.4050, L101.9900 ####[facility] [address] [place], [address] CRPon 03-08-2025 C-REACTIVE PROT 47.60 mg/L High 0.0-3.0 [facility] Comment on above: Performed By: #### L 100.0100, L501.6710, L500.4050, L101.9900 ####[facility] [address] [place], [address] Comprehensive Metabolic Prof ilon 03-08-2025 Albumin [Mass/Vol] 3.7 g/dL Normal 3.4-4.8 [facility] Comment on above: Performed By: #### L 100.0100, L501.6710, L500.4050, L101.9900 ####[facility] [address] [place], [address] Albumin/Globulin [Mass ratio] 0.9 {ratio} Normal 0.9-2.4 [facility] Comment on above: Performed By: #### L 100.0100, L501.6710, L500.4050, L101.9900 ####[facility] [address] [place], [address] ALK PHOS 101 U/L Normal 35-104 [facility] Comment on above: Performed By: #### L 100.0100, L501.6710, L500.4050, L101.9900 ####[facility] [address] [place], [address] ALT [Catalytic activity/Vol] 13 U/L Normal <=34 [facility] Comment on above: Performed By: #### L 100.0100, L501.6710, L500.4050, L101.9900 ####[facility] [address] [place], [address] AST [Catalytic activity/Vol] 17 U/L Normal <=31 [facility] Comment on above: Performed By: #### L 100.0100, L501.6710, L500.4050, L101.9900 ####[facility] [address] [place], [address] BUN/CRE 33.7 RATIO High 10-20 [facility] Comment on above: Performed By: #### L 100.0100, L501.6710, L500.4050, L101.9900 ####[facility] [address] [place], [address] Calcium [Mass/Vol] 9.9 mg/dL Normal 7.6-11.0 [facility] Comment on above: Performed By: #### L 100.0100, L501.6710, L500.4050, L101.9900 ####[facility] [address] [place], [address] Chloride [Moles/Vol] 107 mmol/L Normal 98-108 [facility] Comment on above: Performed By: #### L 100.0100, L501.6710, L500.4050, L101.9900 ####[facility] [address] [place], [address] CO2 [Moles/Vol] 20.0 mmol/L Low 21.0-32.0 [facility] Comment on above: Performed By: #### L 100.0100, L501.6710, L500.4050, L101.9900 ####[facility] [address] [place], [address] Creatinine [Mass/Vol] 0.71 mg/dL Normal 0.70-1.20 [facility] Comment on above: Performed By: #### L 100.0100, L501.6710, L500.4050, L101.9900 ####[facility] [address] [place], [address] GAP 14 Normal 5-15 [facility] Comment on above: Performed By: #### L 100.0100, L501.6710, L500.4050, L101.9900 ####[facility] [address] [place], [address] GFR/1.73 sq M.predicted among non-blacks MDRD (S/P/Bld) [Vol rate/Area] 94 mL/min/{1.73_m2} Normal >60 [facility] Comment on above: Result Comment: mL/m in/1.73m2 CKD-EPI Creatinine Equation (2020) Performed By: #### L 100.0100, L501.6710, L500.4050, L101.9900 ####[facility] [address] [place], [address] Globulin (S) [Mass/Vol] 4.1 g/dL Normal 2.2-4.2 [facility] Comment on above: Performed By: #### L 100.0100, L501.6710, L500.4050, L101.9900 ####[facility] [address] [place], [address] Glucose [Mass/Vol] 166 mg/dL High 70-99 [facility] Comment on above: Performed By: #### L 100.0100, L501.6710, L500.4050, L101.9900 ####[facility] [address] [place], [address] Potassium [Moles/Vol] 3.6 mmol/L Normal 3.3-5.1 [facility] Comment on above: Performed By: #### L 100.0100, L501.6710, L500.4050, L101.9900 ####[facility] [address] [place], [address] Sodium [Moles/Vol] 141 mmol/L Normal 133-145 [facility] Comment on above: Performed By: #### L 100.0100, L501.6710, L500.4050, L101.9900 ####[facility] [address] [place], [address] T BILI < 0.15 Normal 0.00-1.30 [facility] Comment on above: Performed By: #### L 100.0100, L501.6710, L500.4050, L101.9900 ####[facility] [address] [place], [address] T PROT 7.8 g/dL Normal 5.9-8.4 [facility] Comment on above: Performed By: #### L 100.0100, L501.6710, L500.4050, L101.9900 ####[facility] [address] [place], [address] Urea nitrogen [Mass/Vol] 24 mg/dL High 4-19 [facility] Comment on above: Performed By: #### L 100.0100, L501.6710, L500.4050, L101.9900 ####[facility] [address] [place], [address] Erythrocyte Sed Rateon 03-08 SED RATE 63 mm/hr High 0-30 [facility] Comment on above: Performed By: #### L 100.0100, L501.6710, L500.4050, L101.9900 ####[facility] [address] [place], [address] Office Visit Reporton 2024 Office Visit Report Normal [facility] Folates, RBCon 03-02-2025 Fol.,Hemolysate 358.0 ng/mL Normal Not Estab. [facility] Comment on above: Performed By: #### L 502.0500, L503.6150, L503.0106, L503.6550, L3100.1725 ####[facility] [address] [place], [place], [phone](301) Folate, RBC 1050 ng/mL Normal >498 [facility] Comment on above: Result Comment: Perf ormed at: - [facility] [address] [place], [place] [id number] Director: Jaxon Dunham PhD, Phone: [phone] Performed By: #### L 502.0500, L503.6150, L503.0106, L503.6550, L3100.1725 ####[facility] [address] [place], [place], [id number] Hematocrit (Bld) [Volume fraction] 34.1 % Normal 34.0-46.6 [facility] Comment on above: Performed By: #### L 502.0500, L503.6150, L503.0106, L503.6550, L3100.1725 ####[facility] [address] [place], [place], [id number] Erythrocyte folate measureme nt with hematocritOrdered By: Paresh Arellano on 03-01-2025 Hematocrit (Bld) [Volume fraction] 34.1 % 34.0-46.6 [facility] Ferritinon 03-01-2025 Ferritin [Mass/Vol] 108 ng/mL Normal 22-378 [facility] Comment on above: Performed By: #### L 502.0500, L503.6150, L503.0106, L503.6550, L3100.1725 ####[facility] [address] [place], [place], [id number] Ironon 03-01-2025 Iron [Mass/Vol] 16 ug/dL Low 50-170 [facility] Comment on above: Performed By: #### L 502.0500, L503.6150, L503.0106, L503.6550, L3100.1725 ####[facility] [address] [place], [address] Iron measurement (mass/mass) Ordered By: Paresh Arellano on 03-01-2025 Iron (Unsp spec) [Mass/Mass] 16 ug/dL Low 50-170 [facility] Microalb:Creat Ratio,Random URon 03-01-2025 MALB:CREAT Normal <30 mg/g CRE [facility] Comment on above: Result Comment: WRON G Performed By: #### L 502.0250 ####[facility] [address] [place], [place], [phone] MICROALBUMIN,UR Normal <20 mg/L [facility] Comment on above: Result Comment: WRON G Performed By: #### L 502.0250 ####[facility] [address] [place], [address] UR CREAT Normal 28.00-217.00 [facility] Comment on above: Result Comment: WRON G Performed By: #### L 502.0250 ####[facility] [address] [place], [address] Microalbumin,Random Urineon 03-01-2025 MICROALBUMIN,UR < 12.0 Normal <20 mg/L [facility] Comment on above: Performed By: #### L 502.0500, L503.6150, L503.0106, L503.6550, L3100.1725 ####[facility] [address] [place], [address] Neurology Visit Reporton Neurology Visit Report Normal [facility] Serum or plasma ferritin arnulfo surement (mass/volume)Ordered By: Paresh Arellano on 03-01-2025 Ferritin [Mass/Vol] 108 ng/mL 22-378 [facility] Urine albumin measurement wi th detection limit of 20 mg/L or less (mass/volume)Ordered By: Paresh Arellano on 03-01-2025 Albumin DL <= 20 mg/L (U) [Mass/Vol] < 12.0 mg/L <20 mg/L [facility] Vitamin B12on 03-01-2025 Cobalamin (Vitamin B12) [Mass/Vol] 339 pg/mL Normal 180-914 [facility] Comment on above: Performed By: #### L 502.0500, L503.6150, L503.0106, L503.6550, L3100.1725 ####[facility] [address] [place], [place], [id number] Vitamin B12 ser/plasOrdered By: Paresh Arellano on 03-01-2025 Cobalamin (Vitamin B12) [Mass/Vol] 339 pg/mL 180-914 [facility] Topiramate, Serumon 02-23-20 25 TOPIRAMATE 13.4 ug/mL Normal 2.0-25.0 [facility] Comment on above: Result Comment: Dete ction Limit = 1.5Performed at: - [facility] [id number] Director: Gino Serrano MD, Phone: [phone] Performed By: #### L 100.0500, L501.5200, L3380.1400, L500.4204 ####[facility] [address] [place], [place], [id number] Ammoniaon 02-18-2025 Ammonia (P) [Moles/Vol] 17.6 umol/L Normal 11-51 [facility] Comment on above: Performed By: #### L 503.5510 ####[facility] [address] [place], [place], [id number] Anion gap in Serum or Plasma Ordered By: Paresh Arellano on 02-18-2025 Anion gap [Moles/Vol] 10 mmol/L 5-15 [facility] BUN/creatinine ratioOrdered By: Paresh Arellano on 02-18-2025 Urea nitrogen/Creatinine [Mass ratio] 30.6 mg/mg High 10-20 [facility] Bilirubin, totalOrdered By: Paresh Arellano on 02-18-2025 Bilirubin [Mass/Vol] 0.27 mg/dL 0.00-1.30 [facility] CBC-Complete Blood Cnt No Di ffon 02-18-2025 Erythrocyte distribution width (RBC) [Ratio] 14.9 % High 11.6-14.6 [facility] Comment on above: Performed By: #### L 100.0500, L501.5200, L3380.1400, L500.4050 ####[facility] [address] [place], [address] Hematocrit (Bld) [Volume fraction] 33.2 % Low 37-47 [facility] Comment on above: Performed By: #### L 100.0500, L501.5200, L3380.1400, L500.4050 ####[facility] [address] [place], [address] Hemoglobin (Bld) [Mass/Vol] 10.0 g/dL Low 12.0-15.0 [facility] Comment on above: Performed By: #### L 100.0500, L501.5200, L3380.1400, L500.4050 ####[facility] [address] [place], [address] MCH (RBC) [Entitic mass] 25.6 pg Low 27.0-32.0 [facility] Comment on above: Performed By: #### L 100.0500, L501.5200, L3380.1400, L500.4050 ####[facility] [address] [place], [address] MCHC (RBC) [Mass/Vol] 30.1 g/dL Low 32-36 [facility] Comment on above: Performed By: #### L 100.0500, L501.5200, L3380.1400, L500.4050 ####[facility] [address] [place], [address] MCV (RBC) [Entitic vol] 85.1 fL Normal 81-99 [facility] Comment on above: Performed By: #### L 100.0500, L501.5200, L3380.1400, L500.4050 ####[facility] [address] [place], [address] Platelet mean volume (Bld) [Entitic vol] 9.9 fL Normal 6.2-12.0 [facility] Comment on above: Performed By: #### L 100.0500, L501.5200, L3380.1400, L500.4050 ####[facility] [address] [place], [address] Platelets (Bld) [#/Vol] 420 10*3/uL Normal 150-450 [facility] Comment on above: Performed By: #### L 100.0500, L501.5200, L3380.1400, L500.4050 ####[facility] [address] [place], [address] RBC (Bld) [#/Vol] 3.90 10*6/uL Low 4.2-5.4 [facility] Comment on above: Performed By: #### L 100.0500, L501.5200, L3380.1400, L500.4050 ####[facility] [address] [place], [address] RDW SD 46.0 fl High 35.1-43.9 [facility] Comment on above: Performed By: #### L 100.0500, L501.5200, L3380.1400, L500.4050 ####[facility] [address] [place], [address] WBC (Bld) [#/Vol] 7.9 10*3/uL Normal 4.4-11.0 [facility] Comment on above: Performed By: #### L 100.0500, L501.5200, L3380.1400, L500.4050 ####[facility] [address] [place], [address] Carbon dioxide, total [Moles /volume] in Central venous bloodOrdered By: Paresh Arellano on 02-18-2025 CO2 [Moles/Vol] 20.9 mmol/L Low 21.0-32.0 [facility] Chloride assayOrdered By: Ra stephanie Arellano on 02-18-2025 Chloride [Moles/Vol] 108 mmol/L 98-108 [facility] Comprehensive Metabolic Prof ilon 02-18-2025 Albumin [Mass/Vol] 3.7 g/dL Normal 3.4-4.8 [facility] Comment on above: Performed By: #### L 100.0500, L501.5200, L3380.1400, L500.4050 ####[facility] [address] [place], [address] Albumin/Globulin [Mass ratio] 0.9 {ratio} Normal 0.9-2.4 [facility] Comment on above: Performed By: #### L 100.0500, L501.5200, L3380.1400, L500.4050 ####[facility] [address] [place], [address] ALK PHOS 118 U/L High 35-104 [facility] Comment on above: Performed By: #### L 100.0500, L501.5200, L3380.1400, L500.4050 ####[facility] [address] [place], [address] ALT [Catalytic activity/Vol] 12 U/L Normal <=34 [facility] Comment on above: Performed By: #### L 100.0500, L501.5200, L3380.1400, L500.4050 ####[facility] [address] [place], [address] AST [Catalytic activity/Vol] 15 U/L Normal <=31 [facility] Comment on above: Performed By: #### L 100.0500, L501.5200, L3380.1400, L500.4050 ####[facility] [address] [place], [address] Bilirubin [Mass/Vol] 0.27 mg/dL Normal 0.00-1.30 [facility] Comment on above: Performed By: #### L 100.0500, L501.5200, L3380.1400, L500.4050 ####[facility] [address] [place], [address] BUN/CRE 30.6 RATIO High 10-20 [facility] Comment on above: Performed By: #### L 100.0500, L501.5200, L3380.1400, L500.4050 ####[facility] [address] [place], [address] Calcium [Mass/Vol] 9.7 mg/dL Normal 7.6-11.0 [facility] Comment on above: Performed By: #### L 100.0500, L501.5200, L3380.1400, L500.4050 ####[facility] [address] [place], [address] Chloride [Moles/Vol] 108 mmol/L Normal 98-108 [facility] Comment on above: Performed By: #### L 100.0500, L501.5200, L3380.1400, L500.4050 ####[facility] [address] [place], [address] CO2 [Moles/Vol] 20.9 mmol/L Low 21.0-32.0 [facility] Comment on above: Performed By: #### L 100.0500, L501.5200, L3380.1400, L500.4050 ####[facility] [address] [place], [address] Creatinine [Mass/Vol] 0.72 mg/dL Normal 0.70-1.20 [facility] Comment on above: Performed By: #### L 100.0500, L501.5200, L3380.1400, L500.4050 ####[facility] [address] [place], [address] GAP 10 Normal 5-15 [facility] Comment on above: Performed By: #### L 100.0500, L501.5200, L3380.1400, L500.4050 ####[facility] [address] [place], [address] GFR/1.73 sq M.predicted among non-blacks MDRD (S/P/Bld) [Vol rate/Area] 92 mL/min/{1.73_m2} Normal >60 [facility] Comment on above: Result Comment: mL/m in/1.73m2 CKD-EPI Creatinine Equation (2020) Performed By: #### L 100.0500, L501.5200, L3380.1400, L500.4050 ####[facility] [address] [place], [address] Globulin (S) [Mass/Vol] 3.9 g/dL Normal 2.2-4.2 [facility] Comment on above: Performed By: #### L 100.0500, L501.5200, L3380.1400, L500.4050 ####[facility] [address] [place], [address] Glucose [Mass/Vol] 160 mg/dL High 70-99 [facility] Comment on above: Performed By: #### L 100.0500, L501.5200, L3380.1400, L500.4050 ####[facility] [address] [place], [address] Potassium [Moles/Vol] 4.2 mmol/L Normal 3.3-5.1 [facility] Comment on above: Performed By: #### L 100.0500, L501.5200, L3380.1400, L500.4050 ####[facility] [address] [place], [address] Sodium [Moles/Vol] 140 mmol/L Normal 133-145 [facility] Comment on above: Performed By: #### L 100.0500, L501.5200, L3380.1400, L500.4050 ####[facility] [address] [place], [address] T PROT 7.5 g/dL Normal 5.9-8.4 [facility] Comment on above: Performed By: #### L 100.0500, L501.5200, L3380.1400, L500.4050 ####[facility] [address] [place], [address] Urea nitrogen [Mass/Vol] 22 mg/dL High 4-19 [facility] Comment on above: Performed By: #### L 100.0500, L501.5200, L3380.1400, L500.4050 ####[facility] [address] [place], [address] Erythrocyte distribution wid th ratioOrdered By: Paresh Arellano on 02-18-2025 Erythrocyte distribution width (RBC) [Ratio] 14.9 % High 11.6-14.6 [facility] Erythrocyte distribution wid th standard deviationOrdered By: Paresh Arellano on 02-18-2025 Erythrocyte distribution width (RBC) [Ratio] 46.0 fl High 35.1-43.9 [facility] Glomerular filtration rate ( GFR) estimation/1.73 sq m using serum, plasma, or whole bOrdered By: Paresh Arellano on 02-18-2025 GFR/1.73 sq M.predicted among non-blacks MDRD (S/P/Bld) [Vol rate/Area] 92 mL/min/{1.73_m2} >60 [facility] Comment on above: mL/min/1.73m2 CKD-EP I Creatinine Equation (2020) Hematocrit Auto (Bld) [Volum e fraction]Ordered By: Paresh Arellano on 02-18-2025 Hematocrit (Bld) [Volume fraction] 33.2 % Low 37-47 [facility] Hemoglobin measurementOrdere d By: Paresh Arellano on 02-18-2025 Hemoglobin (Bld) [Mass/Vol] 10.0 g/dL Low 12.0-15.0 [facility] Laboratory - Chemistry and C hemistry - challengeOrdered By: Paresh Arellano on 02-18-2025 AST [Catalytic activity/Vol] 15 U/L <32 [facility] MCV (mean corpuscular volume ) determinationOrdered By: Paresh Arellano on 02-18-2025 MCV (RBC) [Entitic vol] 85.1 fL 81-99 [facility] Magnesiumon 02-18-2025 Magnesium [Mass/Vol] 2.0 mg/dL Normal 1.5-2.2 [facility] Comment on above: Performed By: #### L 100.0500, L501.5200, L3380.1400, L500.4050 ####[facility] [address] [place], [address] Magnesium measurement (mass/ volume)Ordered By: Paresh Arellano on 02-18-2025 Magnesium (Unsp spec) [Mass/Vol] 2.0 mg/dL 1.5-2.2 [facility] Mean corpuscular hemoglobin (MCH) determinationOrdered By: Paresh Arellano on 02-18-2025 MCH (RBC) [Entitic mass] 25.6 pg Low 27.0-32.0 [facility] Mean corpuscular hemoglobin concentration (MCHC) determinationOrdered By: Paresh Arellano on 02-18-2025 MCHC (RBC) [Mass/Vol] 30.1 g/dL Low 32-36 [facility] Mean platelet volume determi nationOrdered By: Paresh Arellano on 02-18-2025 Platelet mean volume (Bld) [Entitic vol] 9.9 fL 6.2-12.0 [facility] Platelet countOrdered By: Ra stephanie Arellano on 02-18-2025 Platelets (Bld) [#/Vol] 420 10*3/uL 150-450 [facility] Potassium measurement (mass/ volume)Ordered By: Paresh Arellano on 02-18-2025 Potassium (Unsp spec) [Mass/Vol] 4.2 mmol/L 3.3-5.1 [facility] RBC Auto (Bld) [#/Vol]Ordere d By: Paresh Arellano on 02-18-2025 RBC (Bld) [#/Vol] 3.90 10*6/uL Low 4.2-5.4 [facility] Serum creatinine measurement (mass/volume)Ordered By: Paresh Arellano on 02-18-2025 Creatinine [Mass/Vol] 0.72 mg/dL 0.70-1.20 [facility] Serum globulin measurementOr dered By: Paresh Arellano on 02-18-2025 Globulin (S) [Mass/Vol] 3.9 g/dL 2.2-4.2 [facility] Serum glucose measurement (m ass/volume)Ordered By: Paresh Arellano on 02-18-2025 Glucose [Mass/Vol] 160 mg/dL High 70-99 [facility] Serum or plasma alanine monroe otransferase (ALT) measurementOrdered By: Paresh Arellano 02-18-2025 ALT [Catalytic activity/Vol] 12 U/L <35 [facility] Serum or plasma albumin digna urement (mass/volume)Ordered By: Paresh Arellano on 02-18-2025 Albumin [Mass/Vol] 3.7 g/dL 3.4-4.8 [facility] Serum or plasma albumin/glob ulin mass ratioOrdered By: Paresh Arellano on 02-18-2025 Albumin/Globulin [Mass ratio] 0.9 {ratio} 0.9-2.4 [facility] Serum or plasma alkaline rudy sphatase measurementOrdered By: Paresh Arellano 02-18-2025 ALP [Catalytic activity/Vol] 118 U/L High 35-104 [facility] Serum or plasma calcium digna urement (mass/volume)Ordered By: Paresh Arellano on 02-18-2025 Calcium [Mass/Vol] 9.7 mg/dL 7.6-11.0 [facility] Serum or plasma topiramate m easurement (mass/volume)Ordered By: Paresh Arellano on 02-18-2025 Topiramate [Mass/Vol] 13.4 ug/mL 2.0-25.0 [facility] Comment on above: Detection Limit = 1. 5Performed at: [facility] [id number] Director: Gino Serrano MD, Phone: [phone] Serum or plasma urea nitroge n measurement (mass/volume)Ordered By: Paresh Arellano on 02-18-2025 Urea nitrogen [Mass/Vol] 22 mg/dL High 4-19 [facility] Sodium levelOrdered By: Tobi Arellano on 02-18-2025 Sodium [Moles/Vol] 140 mmol/L 133-145 [facility] Total proteinOrdered By: Elliot Arellano on 02-18-2025 Protein [Mass/Vol] 7.5 g/dL 5.9-8.4 [facility] Venous blood ammonia measure mentOrdered By: Paresh Arellano on 02-18-2025 Ammonia (P) [Moles/Vol] 17.6 umol/L 11-51 [facility] White blood cell (WBC) count Ordered By: Paresh Arellano on 02-18-2025 WBC (Bld) [#/Vol] 7.9 10*3/uL 4.4-11.0 [facility] Neurology Visit Reporton Neurology Visit Report Normal [facility] Internal Medicine Office Vis iton 11-01-2024 Internal Medicine Office Visit Normal [facility] Culture, Anaerobic Any Sourc cha 10-30-2024 CUAN Normal [facility] Comment on above: Performed By: #### M 100.3000, M100.4001, M100.2000 ####[facility] [address] [place], [address] Wound Cultureon 10-30-2024 WC Normal [facility] Comment on above: Performed By: #### M 100.3000, M100.4001, M100.1999 ####[facility] [address] [place], [address] Gram Stainon 10-28-2024 GS LEFT HEEL Gram Stain 2+ Gram positive cocci Rare Gram positive rods Rare White Blood Cells No Epithelial cells Normal [facility] Comment on above: Performed By: #### M 100.3000, M100.4001, M100.1999 ####[facility] [address] [place], [address] Anaerobic cultureOrdered By: Thompson Wright on 10-27-2024 Bacteria identified Anaer cx Nom (Unsp spec) Anaerobic cocci Abnormal [facility] Bacteria identified Anaer cx Nom (Unsp spec)Ordered By: Thompson Wrigth on 10-27-2024 Anaerobic Culture Anaerobic cocci Abnormal [facility] Gram stainOrdered By: Jh Wright on 10-27-2024 Microscopic observation Gram stain Nom (Unsp spec) [facility] Routine wound cultureOrdered By: Thompson Wright on 10-27-2024 Microbial culture, routine Morganella morganii sp morgani Abnormal [facility] Microbial culture, routine Staphylococcus epidermidis Abnormal [facility] Microbial culture, routine Meth. resistant Staph. aureus Abnormal [facility] Wound Culture Morganella morganii sp morgani Abnormal [facility] Wound Culture Staphylococcus epidermidis Abnormal [facility] Wound Culture Meth. resistant Stap h. aureus Abnormal [facility] Bedside Glucoseon 10-01-2024 FINGERSTICK GLU 153 mg/dL High 74-106 [facility] Comment on above: Result Comment: MORGAN BROWNLEE OF PATIENT CARE PER NURSING PROTOCOL Performed By: #### L 501.080 ####[facility] [address] [place], [address] Frozen Section (charge)on Frozen Section (charge) Normal [facility] Comment on above: Performed By: #### P FSC ####[facility] [address] [place], [place], [id number] [facility] deOrdered By: Thompson Wright on 10-01-2024 Bedside Glucose (Misc Panel) 153 mg/dL High 74-106 [facility] Comment on above: MANAGEMENT OF PATIEN T CARE PER NURSING PROTOCOL Glucose [Mass/Vol] 153 mg/dL High 74-106 [facility] Comment on above: MANAGEMENT OF PATIEN T CARE PER NURSING PROTOCOL MR/POSTOP.ANEon 10-01-2024 MR/POSTOP.ANE Normal [facility] Operative Reporton Operative Report Normal [facility] MR/PAT.ANEon 09-30-2024 MR/PAT.ANE Normal [facility] Topiramate, Serumon 09-27-19 25 TOPIRAMATE 14.1 ug/mL Normal 2.0-25.0 [facility] Comment on above: Result Comment: Dete ction Limit = 1.5Performed at: [employer] [place], [place] [id number] Director: Gino Serrano MD, Phone: [phone] Performed By: #### L 3380.1400 ####[facility] [address] [place], [place], [address] Serum or plasma topiramate m easurement (mass/volume)Ordered By: Paresh Arellano on 09-23-2024 Topiramate [Mass/Vol] 14.1 ug/mL 2.0-25.0 [facility] Comment on above: Detection Limit = 1. 5Performed at: [employer] [place], [place] [id number] Director: Gino Serrano MD, Phone: [phone] Topiramate [Mass/Vol]Ordered By: Paresh Arellano on 09-23-2024 Topiramate Level 14.1 ug/mL 2.0-25.0 [facility] Comment on above: Detection Limit = 1. 5Performed at: [employer] [place], [place] [id number] Director: Gino Serrano MD, Phone: [phone] Hemoglobin A1con 09-19-2024 HbA1c (Bld) [Mass fraction] 7.3 % High 3.8-5.6 [facility] Comment on above: Result Comment: Norm al < 5.7 % Prediabetic 5.7 - 6.4 % Diabetic >or= 6.5 % Please note range changes. Performed By: #### L 100.0100, L501.9985, L500.4050, L506.1000 ####[facility] [address] [place], [address] 59-DT-Nrnlkli DOrdered By: Rach Herrera on 09-17-2024 Vitamin D 25-Hydroxy 28.1 ng/mL [facility] Comment on above: Vitamin D 25(OH) Sta tus Range Deficiency <20 ng/mL (50nmol/L) Insufficiency 20 - 30 ng/mL (50 - 75 nmol/L) Sufficiency 30 - 100 ng/mL (75 - 250 nmol/L) Toxicity >100 ng/mL (>250 nmol/L) Absolute lymphocyte countOrd ered By: Danny Herrera on 09-17-2024 Lymphocytes Auto (Unsp spec) [#/Vol] 1.79 10*3/uL 0.83-4.51 [facility] Absolute neutrophil countOrd ered By: Danny Herrera on 09-17-2024 Neutrophils (Bld) [#/Vol] 6.2 10*3/uL 2.0-7.7 [facility] Albumin to globulin ratioOrd ered By: Danny Herrera on 09-17-2024 Albumin/Globulin [Mass ratio] 0.7 {ratio} Low 0.9-2.4 [facility] Automated lymphocyte count a s percentage of total leukocytesOrdered By: Danny Herrera on 09-17-2024 Lymphocytes/100 WBC Auto (Unsp spec) 19.4 % 19-41 [facility] Basophil percentageOrdered B y: Danny Herrera on 09-17-2024 Basophils/100 WBC (Bld) 0.3 % 0-1 [facility] Bilirubin, totalOrdered By: Danny Herrera on 09-17-2024 Bilirubin [Mass/Vol] 0.30 mg/dL 0.20-1.00 [facility] Comment on above: For patients on eltr ombopag therapy, use of Dimension [place] TBIL is not recommended. Blood urea nitrogen (BUN)/cr eatinine ratioOrdered By: Danny Herrera on 09-17-2024 Urea nitrogen/Creatinine [Mass ratio] 37.2 mg/mg High 10-20 [facility] CBC W/Diff, Automatedon Absolute Lymph 1.79 X10 3/uL Normal 0.83-4.51 [facility] Comment on above: Performed By: #### L 100.0100, L501.9985, L500.4050, L506.1000 ####[facility] [address] [place], [address] Absolute Neut 6.2 X10 3/uL Normal 2.0-7.7 [facility] Comment on above: Performed By: #### L 100.0100, L501.9985, L500.4050, L506.1000 ####[facility] [address] [place], [address] Basophils/100 WBC (Bld) 0.3 % Normal 0-1 [facility] Comment on above: Performed By: #### L 100.0100, L501.9985, L500.4050, L506.1000 ####[facility] [address] [place], [address] Eosinophils/100 WBC (Bld) 5.0 % Normal 0-5 [facility] Comment on above: Performed By: #### L 100.0100, L501.9985, L500.4050, L506.1000 ####[facility] [address] [place], [address] Erythrocyte distribution width (RBC) [Ratio] 14.6 % Normal 11.6-14.6 [facility] Comment on above: Performed By: #### L 100.0100, L501.9985, L500.4050, L506.1000 ####[facility] [address] [place], [address] Hematocrit (Bld) [Volume fraction] 38.6 % Normal 37-47 [facility] Comment on above: Performed By: #### L 100.0100, L501.9985, L500.4050, L506.1000 ####[facility] [address] [place], [address] Hemoglobin (Bld) [Mass/Vol] 11.6 g/dL Low 12.0-15.0 [facility] Comment on above: Performed By: #### L 100.0100, L501.9985, L500.4050, L506.1000 ####[facility] [address] [place], [address] IG% 0.300 Normal 0.0-0.9 [facility] Comment on above: Result Comment: IG% - Immature Granulocytes (promyelocytes, myelocytes andmetamyelocytes) > 1% indicates that a LEFT SHIFT is Present. Performed By: #### L 100.0100, L501.9985, L500.4050, L506.1000 ####[facility] [address] [place], [address] Lymphocytes/100 WBC (Bld) 19.4 % Normal 19-41 [facility] Comment on above: Performed By: #### L 100.0100, L501.9985, L500.4050, L506.1000 ####[facility] [address] [place], [address] MCH (RBC) [Entitic mass] 25.7 pg Low 27.0-32.0 [facility] Comment on above: Performed By: #### L 100.0100, L501.9985, L500.4050, L506.1000 ####[facility] [address] [place], [address] MCHC (RBC) [Mass/Vol] 30.1 g/dL Low 32-36 [facility] Comment on above: Performed By: #### L 100.0100, L501.9985, L500.4050, L506.1000 ####[facility] [address] [place], [address] MCV (RBC) [Entitic vol] 85.6 fL Normal 81-99 [facility] Comment on above: Performed By: #### L 100.0100, L501.9985, L500.4050, L506.1000 ####[facility] [address] [place], [address] Monocytes/100 WBC (Bld) 7.4 % Normal 0-10 [facility] Comment on above: Performed By: #### L 100.0100, L501.9985, L500.4050, L506.1000 ####[facility] [address] [place], [address] Neutrophils/100 WBC (Bld) 67.6 % Normal 47-70 [facility] Comment on above: Performed By: #### L 100.0100, L501.9985, L500.4050, L506.1000 ####[facility] [address] [place], [address] Nucleated RBC (Bld) [#/Vol] 0 10*3/uL Normal 0-5 [facility] Comment on above: Performed By: #### L 100.0100, L501.9985, L500.4050, L506.1000 ####[facility] [address] [place], [address] Platelet mean volume (Bld) [Entitic vol] 10.5 fL Normal 6.2-12.0 [facility] Comment on above: Performed By: #### L 100.0100, L501.9985, L500.4050, L506.1000 ####[facility] [address] [place], [address] Platelets (Bld) [#/Vol] 470 10*3/uL High 150-450 [facility] Comment on above: Performed By: #### L 100.0100, L501.9985, L500.4050, L506.1000 ####[facility] [address] [place], [address] RBC (Bld) [#/Vol] 4.51 10*6/uL Normal 4.2-5.4 [facility] Comment on above: Performed By: #### L 100.0100, L501.9985, L500.4050, L506.1000 ####[facility] [address] [place], [address] RDW SD 45.7 fl High 35.1-43.9 [facility] Comment on above: Performed By: #### L 100.0100, L501.9985, L500.4050, L506.1000 ####[facility] [address] [place], [address] WBC (Bld) [#/Vol] 9.2 10*3/uL Normal 4.4-11.0 [facility] Comment on above: Performed By: #### L 100.0100, L501.9985, L500.4050, L506.1000 ####[facility] [address] [place], [address] Carbon dioxide measurementOr dered By: Danny Herrera on 09-17-2024 CO2 [Moles/Vol] 22.0 mmol/L 21.0-32.0 [facility] Chloride measurementOrdered By: Danny Herrera on 09-17-2024 Chloride [Moles/Vol] 111 mmol/L High 98-107 [facility] Comprehensive Metabolic Prof ilon 02-07-2025 Albumin [Mass/Vol] 3.4 g/dL Normal 3.2-5.0 [facility] Comment on above: Performed By: #### L 100.0100, L501.9985, L500.4050, L506.1000 ####[facility] [address] [place], [address] Albumin/Globulin [Mass ratio] 0.7 {ratio} Low 0.9-2.4 [facility] Comment on above: Performed By: #### L 100.0100, L501.9985, L500.4050, L506.1000 ####[facility] [address] [place], [address] ALK P 109 U/L Normal 45-117 [facility] Comment on above: Performed By: #### L 100.0100, L501.9985, L500.4050, L506.1000 ####[facility] [address] [place], [address] ALT [Catalytic activity/Vol] 12 U/L Low 13-56 [facility] Comment on above: Performed By: #### L 100.0100, L501.9985, L500.4050, L506.1000 ####[facility] [address] [place], [address] AST [Catalytic activity/Vol] 7 U/L Low 15-37 [facility] Comment on above: Performed By: #### L 100.0100, L501.9985, L500.4050, L506.1000 ####[facility] [address] [place], [address] Bilirubin [Mass/Vol] 0.30 mg/dL Normal 0.20-1.00 [facility] Comment on above: Result Comment: For patients on eltrombopag therapy, use of Dimension [place] TBIL is not recommended. Performed By: #### L 100.0100, L501.9985, L500.4050, L506.1000 ####[facility] [address] [place], [address] BUN/CRE 37.2 RATIO High 10-20 [facility] Comment on above: Performed By: #### L 100.0100, L501.9985, L500.4050, L506.1000 ####[facility] [address] [place], [address] CA,Total 10.2 mg/dL High 8.5-10.1 [facility] Comment on above: Performed By: #### L 100.0100, L501.9985, L500.4050, L506.1000 ####[facility] [address] [place], [address] Chloride [Moles/Vol] 111 mmol/L High 98-107 [facility] Comment on above: Performed By: #### L 100.0100, L501.9985, L500.4050, L506.1000 ####[facility] [address] [place], [address] CO2 [Moles/Vol] 22.0 mmol/L Normal 21.0-32.0 [facility] Comment on above: Performed By: #### L 100.0100, L501.9985, L500.4050, L506.1000 ####[facility] [address] [place], [address] Creatinine [Mass/Vol] 0.83 mg/dL Normal 0.55-1.02 [facility] Comment on above: Result Comment: The validity of the calculated GFR GFRAA in patients over70 years has not been determined. Clinical correlation isessential. Performed By: #### L 100.0100, L501.9985, L500.4050, L506.1000 ####[facility] [address] [place], [address] EST GFR - AA 88 mL/min Normal >60 [facility] Comment on above: Result Comment: Afri can [place] GFR Calc Performed By: #### L 100.0100, L501.9985, L500.4050, L506.1000 ####[facility] [address] [place], [address] GAP 10 Normal 5-15 [facility] Comment on above: Performed By: #### L 100.0100, L501.9985, L500.4050, L506.1000 ####[facility] [address] [place], [address] GFR/1.73 sq M.predicted among non-blacks MDRD (S/P/Bld) [Vol rate/Area] 72 mL/min/{1.73_m2} Normal >60 [facility] Comment on above: Result Comment: Non- GFR Calc Performed By: #### L 100.0100, L501.9985, L500.4050, L506.1000 ####[facility] [address] [place], [address] Globulin (S) [Mass/Vol] 4.8 g/dL High 2.2-4.2 [facility] Comment on above: Performed By: #### L 100.0100, L501.9985, L500.4050, L506.1000 ####[facility] [address] [place], [address] Glucose [Mass/Vol] 189 mg/dL High 74-106 [facility] Comment on above: Result Comment: Fast ing Glucose result greater than or equal to 126 mg/dLsuggests DIABETES MELLITUS per A.D.A. criteria. Performed By: #### L 100.0100, L501.9985, L500.4050, L506.1000 ####[facility] [address] [place], [address] Potassium [Moles/Vol] 4.5 mmol/L Normal 3.5-5.1 [facility] Comment on above: Performed By: #### L 100.0100, L501.9985, L500.4050, L506.1000 ####[facility] [address] [place], [address] Sodium [Moles/Vol] 143 mmol/L Normal 136-145 [facility] Comment on above: Performed By: #### L 100.0100, L501.9985, L500.4050, L506.1000 ####[facility] [address] [place], [address] T PROT 8.2 g/dL Normal 6.4-8.2 [facility] Comment on above: Performed By: #### L 100.0100, L501.9985, L500.4050, L506.1000 ####[facility] [address] [place], [address] Urea nitrogen [Mass/Vol] 31 mg/dL High 7-18 [facility] Comment on above: Performed By: #### L 100.0100, L501.9985, L500.4050, L506.1000 ####[facility] [address] [place], [address] Eosinophil percentageOrdered By: Danny Herrera on 09-17-2024 Eosinophils/100 WBC (Bld) 5.0 % 0-5 [facility] Erythrocyte distribution wid th ratioOrdered By: Danny Herrera on 09-17-2024 Erythrocyte distribution width (RBC) [Ratio] 14.6 % 11.6-14.6 [facility] Erythrocyte distribution wid th standard deviationOrdered By: Danny Herrera on 09-17-2024 Erythrocyte distribution width (RBC) [Entitic vol] 45.7 fL High 35.1-43.9 [facility] Erythrocyte distribution width (RBC) [Ratio] 45.7 fl High 35.1-43.9 [facility] Estimated glomerular filtrat ion rate (GFR) AmericanOrdered By: Danny Herrera on 09-17-2024 Estimated GFR (MDRD) Amer 88 mL/min >60 [facility] Comment on above: GFR Calc Glomerular filtration rate ( GFR) estimationOrdered By: Danny Herrera on 09-17-2024 Estimated GFR (MDRD) Non-Af Amer 72 mL/min >60 [facility] Comment on above: Non- GFR Calc GFR/1.73 sq M.predicted among non-blacks MDRD (S/P/Bld) [Vol rate/Area] 72 mL/min/{1.73_m2} >60 [facility] Comment on above: Non- GFR Calc Glucose measurementOrdered B y: Danny Herrera on 09-17-2024 Glucose [Mass/Vol] 189 mg/dL High 74-106 [facility] Comment on above: Fasting Glucose resu lt greater than or equal to 126 mg/dL suggests DIABETES MELLITUS per A.D.A. criteria. Hematocrit Auto (Bld) [Volum e fraction]Ordered By: Danny Herrera on 09-17-2024 Hematocrit (Bld) [Volume fraction] 38.6 % 37-47 [facility] Hemoglobin A1c percentageOrd ered By: Danny Herrera on 09-17-2024 HbA1c (Bld) [Mass fraction] 7.3 % High 3.8-5.6 [facility] Comment on above: Normal < 5.7 % Predi abetic 5.7 - 6.4 % Diabetic >or= 6.5 % Please note range changes. Hemoglobin measurementOrdere d By: Danny Herrera on 09-17-2024 Hemoglobin (Bld) [Mass/Vol] 11.6 g/dL Low 12.0-15.0 [facility] Immature granulocytes/100 WB C Auto (Bld)Ordered By: Danny Herrera on 09-17-2024 Immature granulocytes/100 WBC (Bld) 0.300 % 0.0-0.9 [facility] Comment on above: IG% - Immature Granu locytes (promyelocytes, myelocytes and metamyelocytes) > 1% indicates that a LEFT SHIFT is Present. Internal Medicine Office Vis iton 09-17-2024 Internal Medicine Office Visit Normal [facility] Laboratory - Chemistry and C hemistry - challengeOrdered By: Danny Herrera on 09-17-2024 AST [Catalytic activity/Vol] 7 U/L Low 15-37 [facility] Lymphocytes Auto (Unsp spec) [#/Vol]Ordered By: Danny Herrera on 09-17-2024 Lymphocytes (Bld) [#/Vol] 1.79 10*3/uL 0.83-4.51 [facility] Lymphocytes/100 WBC Auto (Un sp spec)Ordered By: Danny Herrera on 09-17-2024 Lymphocytes/100 WBC (Bld) 19.4 % 19-41 [facility] MCV (mean corpuscular volume ) determinationOrdered By: Danny Herrera on 09-17-2024 MCV (RBC) [Entitic vol] 85.6 fL 81-99 [facility] Mean corpuscular hemoglobin (MCH) determinationOrdered By: Danny Herrera on 09-17-2024 MCH (RBC) [Entitic mass] 25.7 pg Low 27.0-32.0 [facility] Mean corpuscular hemoglobin concentration (MCHC) determinationOrdered By: Danny Herrera on 09-17-2024 MCHC (RBC) [Mass/Vol] 30.1 g/dL Low 32-36 [facility] Mean platelet volume determi nationOrdered By: Danny Herrera on 09-17-2024 Platelet mean volume (Bld) [Entitic vol] 10.5 fL 6.2-12.0 [facility] Monocyte percentageOrdered B y: Danny Herrera on 09-17-2024 Monocytes/100 WBC (Bld) 7.4 % 0-10 [facility] Neutrophil percentageOrdered By: Danny Herrera on 09-17-2024 Neutrophils/100 WBC (Bld) 67.6 % 47-70 [facility] Nucleated red blood cell per centageOrdered By: Danny Herrera on 09-17-2024 Nucleated RBC/100 WBC (Bld) [Ratio] 0 % 0-5 [facility] Platelet countOrdered By: Kali Herrera on 09-17-2024 Platelets (Bld) [#/Vol] 470 10*3/uL High 150-450 [facility] Potassium measurementOrdered By: Danny Herrera on 09-17-2024 Potassium [Moles/Vol] 4.5 mmol/L 3.5-5.1 [facility] RBC Auto (Bld) [#/Vol]Ordere d By: Danny Herrera on 09-17-2024 RBC (Bld) [#/Vol] 4.51 10*6/uL 4.2-5.4 [facility] Serum anion gap measurementO rdered By: Danny Herrera on 09-17-2024 Anion gap [Moles/Vol] 10 mmol/L 5-15 [facility] Serum globulin measurementOr dered By: Danny Herrera on 09-17-2024 Globulin (S) [Mass/Vol] 4.8 g/dL High 2.2-4.2 [facility] Serum or plasma alanine monroe otransferase (ALT) measurementOrdered By: Danny Herrera on 09-17-2024 ALT [Catalytic activity/Vol] 12 U/L Low 13-56 [facility] Serum or plasma albumin digna urement (mass/volume)Ordered By: Danny Herrera on 09-17-2024 Albumin [Mass/Vol] 3.4 g/dL 3.2-5.0 [facility] Serum or plasma alkaline rudy sphatase measurementOrdered By: Danny Herrera on 09-17-2024 ALP [Catalytic activity/Vol] 109 U/L 45-117 [facility] Serum or plasma calcium digna urement (mass/volume)Ordered By: Danny Herrera on 09-17-2024 Calcium [Mass/Vol] 10.2 mg/dL High 8.5-10.1 [facility] Serum or plasma creatinine m easurement (mass/volume)Ordered By: Danny Herrera on 09-17-2024 Creatinine [Mass/Vol] 0.83 mg/dL 0.55-1.02 [facility] Comment on above: The validity of the calculated GFR & GFRAA in patients over 70 years has not been determined. Clinical correlation is essential. Serum or plasma urea nitroge n measurement (mass/volume)Ordered By: Danny Herrera on 09-17-2024 Urea nitrogen [Mass/Vol] 31 mg/dL High 7-18 [facility] Sodium levelOrdered By: Dayo fredrick Javier on 09-17-2024 Sodium [Moles/Vol] 143 mmol/L 136-145 [facility] Total proteinOrdered By: Chetrach ericksonjorge Herrera on 09-17-2024 Protein [Mass/Vol] 8.2 g/dL 6.4-8.2 [facility] Vitamin D,25 Hydroxyon 09-17 Vitamin D 25-OH 28.1 ng/mL Normal [facility] Comment on above: Result Comment: Karol min D 25(OH) Status Range Deficiency <20 ng/mL (50nmol/L) Insufficiency 20 - 30 ng/mL (50 - 75 nmol/L) Sufficiency 30 - 100 ng/mL (75 - 250 nmol/L) Toxicity >100 ng/mL (>250 nmol/L) Performed By: #### L 100.0100, L501.9985, L500.4050, L506.1000 ####[facility] [address] [place], [address] White blood cell (WBC) count Ordered By: Dayoeliotjorge Willettkimrach on 09-17-2024 WBC (Bld) [#/Vol] 9.2 10*3/uL 4.4-11.0 [facility] Lower Ext Joint Only W/WO Co nton 09-10-2024 Lower Ext Joint Only W/WO Cont Normal [facility] Foot min 3 Viewson 5 Foot min 3 Views Normal [facility] Wound Ctr History AND Physic homero 09-01-2024 Wound Ctr History & Physical Normal [facility] Neurology Visit Reporton Neurology Visit Report Normal [facility] Thyroidon 06-29-2024 Thyroid Normal [facility] Topiramate, Serumon 06-23-20 24 TOPIRAMATE 12.2 ug/mL Normal 2.0-25.0 [facility] Comment on above: Result Comment: Dete ction Limit = 1.5Performed at: [facility] [id number] Director: Gino Serrano MD, Phone: [phone] Performed By: #### L 501.5200, L503.5510, L100.0500, L3380.1400, L500.4050 ####[facility] [address] [place], [address] Ammoniaon 06-21-2024 Ammonia (P) [Moles/Vol] 18.0 umol/L Normal 11-32 [facility] Comment on above: Performed By: #### L 501.5200, L503.5510, L100.0500, L3380.1400, L500.4050 ####[facility] [address] [place], [address] CBC-Complete Blood Cnt No Di ffon 06-21-2024 Erythrocyte distribution width (RBC) [Ratio] 14.4 % Normal 11.6-14.6 [facility] Comment on above: Performed By: #### L 501.5200, L503.5510, L100.0500, L3380.1400, L500.4050 ####[facility] [address] [place], [address] Hematocrit (Bld) [Volume fraction] 39.8 % Normal 37-47 [facility] Comment on above: Performed By: #### L 501.5200, L503.5510, L100.0500, L3380.1400, L500.4050 ####[facility] [address] [place], [address] Hemoglobin (Bld) [Mass/Vol] 12.2 g/dL Normal 12.0-15.0 [facility] Comment on above: Performed By: #### L 501.5200, L503.5510, L100.0500, L3380.1400, L500.4050 ####[facility] [address] [place], [address] MCH (RBC) [Entitic mass] 28.0 pg Normal 27.0-32.0 [facility] Comment on above: Performed By: #### L 501.5200, L503.5510, L100.0500, L3380.1400, L500.4050 ####[facility] [address] [place], [address] MCHC (RBC) [Mass/Vol] 30.7 g/dL Low 32-36 [facility] Comment on above: Performed By: #### L 501.5200, L503.5510, L100.0500, L3380.1400, L500.4050 ####[facility] [address] [place], [address] MCV (RBC) [Entitic vol] 91.5 fL Normal 81-99 [facility] Comment on above: Performed By: #### L 501.5200, L503.5510, L100.0500, L3380.1400, L500.4050 ####[facility] [address] [place], [address] Platelet mean volume (Bld) [Entitic vol] 10.8 fL Normal 6.2-12.0 [facility] Comment on above: Performed By: #### L 501.5200, L503.5510, L100.0500, L3380.1400, L500.4050 ####[facility] [address] [place], [address] Platelets (Bld) [#/Vol] 339 10*3/uL Normal 150-450 [facility] Comment on above: Performed By: #### L 501.5200, L503.5510, L100.0500, L3380.1400, L500.4050 ####[facility] [address] [place], [address] RBC (Bld) [#/Vol] 4.35 10*6/uL Normal 4.2-5.4 [facility] Comment on above: Performed By: #### L 501.5200, L503.5510, L100.0500, L3380.1400, L500.4050 ####[facility] [address] [place], [address] RDW SD 48.8 fl High 35.1-43.9 [facility] Comment on above: Performed By: #### L 501.5200, L503.5510, L100.0500, L3380.1400, L500.4050 ####[facility] [address] [place], [address] WBC (Bld) [#/Vol] 8.3 10*3/uL Normal 4.4-11.0 [facility] Comment on above: Performed By: #### L 501.5200, L503.5510, L100.0500, L3380.1400, L500.4050 ####[facility] [address] [place], [address] Comprehensive Metabolic [facility] 06-21-2024 Albumin [Mass/Vol] 3.6 g/dL Normal 3.2-5.0 [facility] Comment on above: Performed By: #### L 501.5200, L503.5510, L100.0500, L3380.1400, L500.4050 ####[facility] [address] [place], [address] Albumin/Globulin [Mass ratio] 0.9 {ratio} Normal 0.9-2.4 [facility] Comment on above: Performed By: #### L 501.5200, L503.5510, L100.0500, L3380.1400, L500.4050 ####[facility] [address] [place], [address] ALK P 106 U/L Normal 45-117 [facility] Comment on above: Performed By: #### L 501.5200, L503.5510, L100.0500, L3380.1400, L500.4050 ####[facility] [address] [place], [address] ALT [Catalytic activity/Vol] 15 U/L Normal 13-56 [facility] Comment on above: Performed By: #### L 501.5200, L503.5510, L100.0500, L3380.1400, L500.4050 ####[facility] [address] [place], [address] AST [Catalytic activity/Vol] 13 U/L Low 15-37 [facility] Comment on above: Performed By: #### L 501.5200, L503.5510, L100.0500, L3380.1400, L500.4050 ####[facility] [address] [place], [address] Bilirubin [Mass/Vol] 0.40 mg/dL Normal 0.20-1.00 [facility] Comment on above: Result Comment: For patients on eltrombopag therapy, use of Dimension [place] TBIL is not recommended. Performed By: #### L 501.5200, L503.5510, L100.0500, L3380.1400, L500.4050 ####[facility] [address] [place], [address] BUN/CRE 30.9 RATIO High 10-20 [facility] Comment on above: Performed By: #### L 501.5200, L503.5510, L100.0500, L3380.1400, L500.4050 ####[facility] [address] [place], [address] CA,Total 9.7 mg/dL Normal 8.5-10.1 [facility] Comment on above: Performed By: #### L 501.5200, L503.5510, L100.0500, L3380.1400, L500.4050 ####[facility] [address] [place], [address] Chloride [Moles/Vol] 116 mmol/L High 98-107 [facility] Comment on above: Performed By: #### L 501.5200, L503.5510, L100.0500, L3380.1400, L500.4050 ####[facility] [address] [place], [address] CO2 [Moles/Vol] 19.0 mmol/L Low 21.0-32.0 [facility] Comment on above: Performed By: #### L 501.5200, L503.5510, L100.0500, L3380.1400, L500.4050 ####[facility] [address] [place], [address] Creatinine [Mass/Vol] 0.94 mg/dL Normal 0.55-1.02 [facility] Comment on above: Result Comment: The validity of the calculated GFR GFRAA in patients over70 years has not been determined. Clinical correlation isessential. Performed By: #### L 501.5200, L503.5510, L100.0500, L3380.1400, L500.4050 ####[facility] [address] [place], [address] EST GFR - AA 77 mL/min Normal >60 [facility] Comment on above: Result Comment: Afri can [place]ij[place] GFR Calc Performed By: #### L 501.5200, L503.5510, L100.0500, L3380.1400, L500.4050 ####[facility] [address] [place], [address] GAP 6 Normal 5-15 [facility] Comment on above: Performed By: #### L 501.5200, L503.5510, L100.0500, L3380.1400, L500.4050 ####[facility] [address] [place], [address] GFR/1.73 sq M.predicted among non-blacks MDRD (S/P/Bld) [Vol rate/Area] 63 mL/min/{1.73_m2} Normal >60 [facility] Comment on above: Result Comment: Non- GFR Calc Performed By: #### L 501.5200, L503.5510, L100.0500, L3380.1400, L500.4050 ####[facility] [address] [place], [address] Globulin (S) [Mass/Vol] 3.8 g/dL Normal 2.2-4.2 [facility] Comment on above: Performed By: #### L 501.5200, L503.5510, L100.0500, L3380.1400, L500.4050 ####[facility] [address] [place], [address] Glucose [Mass/Vol] 153 mg/dL High 74-106 [facility] Comment on above: Result Comment: Fast ing Glucose result greater than or equal to 126 mg/dLsuggests DIABETES MELLITUS per A.D.A. criteria. Performed By: #### L 501.5200, L503.5510, L100.0500, L3380.1400, L500.4050 ####[facility] [address] [place], [address] Potassium [Moles/Vol] 3.7 mmol/L Normal 3.5-5.1 [facility] Comment on above: Performed By: #### L 501.5200, L503.5510, L100.0500, L3380.1400, L500.4050 ####[facility] [address] [place], [address] Sodium [Moles/Vol] 141 mmol/L Normal 136-145 [facility] Comment on above: Performed By: #### L 501.5200, L503.5510, L100.0500, L3380.1400, L500.4050 ####[facility] [address] [place], [address] T PROT 7.4 g/dL Normal 6.4-8.2 [facility] Comment on above: Performed By: #### L 501.5200, L503.5510, L100.0500, L3380.1400, L500.4050 ####[facility] [address] [place], [address] Urea nitrogen [Mass/Vol] 29 mg/dL High 7-18 [facility] Comment on above: Performed By: #### L 501.5200, L503.5510, L100.0500, L3380.1400, L500.4050 ####[facility] [address] [place], [address] Lipid Profileon 06-21-2024 Cholesterol [Mass/Vol] 242 mg/dL High 200 [facility] Comment on above: Result Comment: <200 mg/dL Desirable 200-240 mg/dL Borderline >240 mg/dL High Risk Performed By: #### L 500.4100 ####[facility] [address] [place], [address] Cholesterol in HDL [Mass/Vol] 55 mg/dL Normal [facility] Comment on above: Result Comment: The drugs N-Acetylcysteine and Metamizole may falselydepress this assay. Reference Range HDL <40 mg/dL Low HDL Cholesterol HDL >or= 60 mg/dL High HDL Cholesterol Performed By: #### L 500.4100 ####[facility] [address] [place], [address] Cholesterol in LDL [Mass/Vol] 153 mg/dL High 0-130 [facility] Comment on above: Performed By: #### L 500.4100 ####[facility] [address] [place], [address] Cholesterol in VLDL [Mass/Vol] 34 mg/dL Normal 5-40 [facility] Comment on above: Performed By: #### L 500.4100 ####[facility] [address] [place], [address] Triglyceride [Mass/Vol] 169 mg/dL Normal [facility] Comment on above: Result Comment: The drugs N-Acetylcysteine and Metamizole may falselydepress this assay.Serum Triglycerides Reference Interval Normal <150 mg/dL Borderline high 150 - 199 mg/dL High 200 - 499 mg/dL Very High > or = 500 mg/dL Performed By: #### L 500.4100 ####[facility] [address] [place], [address] Magnesiumon 06-21-2024 Magnesium [Mass/Vol] 2.3 mg/dL Normal 1.6-2.6 [facility] Comment on above: Performed By: #### L 501.5200, L503.5510, L100.0500, L3380.1400, L500.4050 ####[facility] [address] [place], [address] Neurology Visit Reporton Neurology Visit Report Normal [facility] L5000.0010on 06-02-2024 Natriuretic peptide B (Bld) [Mass/Vol] 17.7 pg/mL Normal 0.0-100.0 [facility] Comment on above: Order Comment: Speci men Comment: A duplicate report has been generateddue to demographicSpecimen Comment: update of the patient's Date of ,Age, Gender, and/orSpecimen Comment: Specimen Date. Please review patientresults, referenceSpecimen Comment: intervals, and calculated results thatmay have beenSpecimen Comment: affected by this change. Result Comment: Siem SigNav Pty Ltdaur XP methodologyPerformed at: [facility] [address], [place], [place] [id number] Director: Jaxon Dunham PhD, Phone: [phone] Performed By: #### L 501.5200, L5000.0010 ####[facility] [address] [place], [address] Internal Medicine Office Vis iton 05-28-2024 Internal Medicine Office Visit Normal [facility] Brain W/WO Contraston 2023 Brain W/WO Contrast Normal [facility] CBC W/Diff, Automatedon 05-11 Absolute Lymph 2.22 X10 3/uL Normal 0.83-4.51 [facility] Comment on above: Performed By: #### L 501.2300, L501.5200, L500.4050, L100.0100 ####[facility] [address] [place], [address] Absolute Neut 4.4 X10 3/uL Normal 2.0-7.7 [facility] Comment on above: Performed By: #### L 501.2300, L501.5200, L500.4050, L100.0100 ####[facility] [address] [place], [address] Basophils/100 WBC (Bld) 0.3 % Normal 0-1 [facility] Comment on above: Performed By: #### L 501.2300, L501.5200, L500.4050, L100.0100 ####[facility] [address] [place], [address] Eosinophils/100 WBC (Bld) 3.3 % Normal 0-5 [facility] Comment on above: Performed By: #### L 501.2300, L501.5200, L500.4050, L100.0100 ####[facility] [address] [place], [address] Erythrocyte distribution width (RBC) [Ratio] 14.1 % Normal 11.6-14.6 [facility] Comment on above: Performed By: #### L 501.2300, L501.5200, L500.4050, L100.0100 ####[facility] [address] [place], [address] Hematocrit (Bld) [Volume fraction] 34.4 % Low 37-47 [facility] Comment on above: Performed By: #### L 501.2300, L501.5200, L500.4050, L100.0100 ####[facility] [address] [place], [address] Hemoglobin (Bld) [Mass/Vol] 10.6 g/dL Low 12.0-15.0 [facility] Comment on above: Performed By: #### L 501.2300, L501.5200, L500.4050, L100.0100 ####[facility] [address] [place], [address] IG% 0.300 Normal 0.0-0.9 [facility] Comment on above: Result Comment: IG% - Immature Granulocytes (promyelocytes, myelocytes andmetamyelocytes) > 1% indicates that a LEFT SHIFT is Present. Performed By: #### L 501.2300, L501.5200, L500.4050, L100.0100 ####[facility] [address] [place], [address] Lymphocytes/100 WBC (Bld) 28.9 % Normal 19-41 [facility] Comment on above: Performed By: #### L 501.2300, L501.5200, L500.4050, L100.0100 ####[facility] [address] [place], [address] MCH (RBC) [Entitic mass] 28.6 pg Normal 27.0-32.0 [facility] Comment on above: Performed By: #### L 501.2300, L501.5200, L500.4050, L100.0100 ####[facility] [address] [place], [address] MCHC (RBC) [Mass/Vol] 30.8 g/dL Low 32-36 [facility] Comment on above: Performed By: #### L 501.2300, L501.5200, L500.4050, L100.0100 ####[facility] [address] [place], [address] MCV (RBC) [Entitic vol] 92.7 fL Normal 81-99 [facility] Comment on above: Performed By: #### L 501.2300, L501.5200, L500.4050, L100.0100 ####[facility] [address] [place], [address] Monocytes/100 WBC (Bld) 9.6 % Normal 0-10 [facility] Comment on above: Performed By: #### L 501.2300, L501.5200, L500.4050, L100.0100 ####[facility] [address] [place], [address] Neutrophils/100 WBC (Bld) 57.6 % Normal 47-70 [facility] Comment on above: Performed By: #### L 501.2300, L501.5200, L500.4050, L100.0100 ####[facility] [address] [place], [address] Nucleated RBC (Bld) [#/Vol] 0 10*3/uL Normal 0-5 [facility] Comment on above: Performed By: #### L 501.2300, L501.5200, L500.4050, L100.0100 ####[facility] [address] [place], [address] Platelet mean volume (Bld) [Entitic vol] 10.1 fL Normal 6.2-12.0 [facility] Comment on above: Performed By: #### L 501.2300, L501.5200, L500.4050, L100.0100 ####[facility] [address] [place], [address] Platelets (Bld) [#/Vol] 280 10*3/uL Normal 150-450 [facility] Comment on above: Performed By: #### L 501.2300, L501.5200, L500.4050, L100.0100 ####[facility] [address] [place], [address] RBC (Bld) [#/Vol] 3.71 10*6/uL Low 4.2-5.4 [facility] Comment on above: Performed By: #### L 501.2300, L501.5200, L500.4050, L100.0100 ####[facility] [address] [place], [address] RDW SD 48.2 fl High 35.1-43.9 [facility] Comment on above: Performed By: #### L 501.2300, L501.5200, L500.4050, L100.0100 ####[facility] [address] [place], [address] WBC (Bld) [#/Vol] 7.7 10*3/uL Normal 4.4-11.0 [facility] Comment on above: Performed By: #### L 501.2300, L501.5200, L500.4050, L100.0100 ####[facility] [address] [place], [address] Comprehensive Metabolic Prof ilon 05-24-2024 Albumin [Mass/Vol] 3.0 g/dL Low 3.2-5.0 [facility] Comment on above: Order Comment: Comme nts: NPO at NE prior to lipid panel Performed By: #### L 501.2300, L501.5200, L500.4050, L100.0100 ####[facility] [address] [place], [address] Albumin/Globulin [Mass ratio] 0.9 {ratio} Normal 0.9-2.4 [facility] Comment on above: Order Comment: Comme nts: NPO at [place] prior to lipid panel Performed By: #### L 501.2300, L501.5200, L500.4050, L100.0100 ####[facility] [address] [place], [address] ALK P 69 U/L Normal 45-117 [facility] Comment on above: Order Comment: Comme nts: NPO at [place] prior to lipid panel Performed By: #### L 501.2300, L501.5200, L500.4050, L100.0100 ####[facility] [address] [place], [address] ALT [Catalytic activity/Vol] 17 U/L Normal 13-56 [facility] Comment on above: Order Comment: Comme nts: NPO at [place] prior to lipid panel Performed By: #### L 501.2300, L501.5200, L500.4050, L100.0100 ####[facility] [address] [place], [address] AST [Catalytic activity/Vol] 12 U/L Low 15-37 [facility] Comment on above: Order Comment: Comme nts: NPO at [place] prior to lipid panel Performed By: #### L 501.2300, L501.5200, L500.4050, L100.0100 ####[facility] [address] [place], [address] Bilirubin [Mass/Vol] 0.40 mg/dL Normal 0.20-1.00 [facility] Comment on above: Order Comment: Comme nts: NPO at [place] prior to lipid panel Result Comment: For patients on eltrombopag therapy, use of Dimension [place] TBIL is not recommended. Performed By: #### L 501.2300, L501.5200, L500.4050, L100.0100 ####[facility] [address] [place], [address] BUN/CRE 30.3 RATIO High 10-20 [facility] Comment on above: Order Comment: Comme nts: NPO at [place] prior to lipid panel Performed By: #### L 501.2300, L501.5200, L500.4050, L100.0100 ####[facility] [address] [place], [address] CA,Total 9.2 mg/dL Normal 8.5-10.1 [facility] Comment on above: Order Comment: Comme nts: NPO at [place] prior to lipid panel Performed By: #### L 501.2300, L501.5200, L500.4050, L100.0100 ####[facility] [address] [place], [address] Chloride [Moles/Vol] 108 mmol/L High 98-107 [facility] Comment on above: Order Comment: Comme nts: NPO at NE prior to lipid panel Performed By: #### L 501.2300, L501.5200, L500.4050, L100.0100 ####[facility] [address] [place], [address] CO2 [Moles/Vol] 26.0 mmol/L Normal 21.0-32.0 [facility] Comment on above: Order Comment: Comme nts: NPO at [place] prior to lipid panel Performed By: #### L 501.2300, L501.5200, L500.4050, L100.0100 ####[facility] [address] [place], [address] Creatinine [Mass/Vol] 0.76 mg/dL Normal 0.55-1.02 [facility] Comment on above: Order Comment: Comme nts: NPO at [place] prior to lipid panel Result Comment: The validity of the calculated GFR GFRAA in patients over70 years has not been determined. Clinical correlation isessential. Performed By: #### L 501.2300, L501.5200, L500.4050, L100.0100 ####[facility] [address] [place], [address] ECRCL 64.16 ml/min Normal [facility] Comment on above: Order Comment: Comme nts: NPO at [place] prior to lipid panel Performed By: #### L 501.2300, L501.5200, L500.4050, L100.0100 ####[facility] [address] [place], [address] EST GFR - AA 98 mL/min Normal >60 [facility] Comment on above: Order Comment: Comme nts: NPO at [place] prior to lipid panel Result Comment: Afri can [place] GFR Calc Performed By: #### L 501.2300, L501.5200, L500.4050, L100.0100 ####[facility] [address] [place], [address] GAP 5 Normal 5-15 [facility] Comment on above: Order Comment: Comme nts: NPO at [place] prior to lipid panel Performed By: #### L 501.2300, L501.5200, L500.4050, L100.0100 ####[facility] [address] [place], [address] GFR/1.73 sq M.predicted among non-blacks MDRD (S/P/Bld) [Vol rate/Area] 81 mL/min/{1.73_m2} Normal >60 [facility] Comment on above: Order Comment: Comme nts: NPO at [place] prior to lipid panel Result Comment: Non- GFR Calc Performed By: #### L 501.2300, L501.5200, L500.4050, L100.0100 ####[facility] [address] [place], [address] Globulin (S) [Mass/Vol] 3.5 g/dL Normal 2.2-4.2 [facility] Comment on above: Order Comment: Comme nts: NPO at [place] prior to lipid panel Performed By: #### L 501.2300, L501.5200, L500.4050, L100.0100 ####[facility] [facility] [address] [place], [address] Glucose [Mass/Vol] 137 mg/dL High 74-106 [facility] Comment on above: Order Comment: Comme nts: NPO at NE prior to lipid panel Result Comment: Fast ing Glucose result greater than or equal to 126 mg/dLsuggests DIABETES MELLITUS per A.D.A. criteria. Performed By: #### L 501.2300, L501.5200, L500.4050, L100.0100 ####[facility] [address] [place], [address] Potassium [Moles/Vol] 3.8 mmol/L Normal 3.5-5.1 [facility] Comment on above: Order Comment: Comme nts: NPO at [place] prior to lipid panel Performed By: #### L 501.2300, L501.5200, L500.4050, L100.0100 ####[facility] [address] [place], [address] Sodium [Moles/Vol] 139 mmol/L Normal 136-145 [facility] Comment on above: Order Comment: Comme nts: NPO at [place] prior to lipid panel Performed By: #### L 501.2300, L501.5200, L500.4050, L100.0100 ####[facility] [address] [place], [address] T PROT 6.5 g/dL Normal 6.4-8.2 [facility] Comment on above: Order Comment: Comme nts: NPO at NE prior to lipid panel Performed By: #### L 501.2300, L501.5200, L500.4050, L100.0100 ####[facility] [address] [place], [address] Urea nitrogen [Mass/Vol] 23 mg/dL High 7-18 [facility] Comment on above: Order Comment: Comme nts: NPO at NE prior to lipid panel Performed By: #### L 501.2300, L501.5200, L500.4050, L100.0100 ####[facility] [address] [place], [address] Discharge Instructionon 05-11 Discharge Instruction Normal [facility] Magnesiumon 05-24-2024 Magnesium [Mass/Vol] 2.0 mg/dL Normal 1.6-2.6 [facility] Comment on above: Order Comment: Comme nts: NPO at NE prior to lipid panel Performed By: #### L 501.2300, L501.5200, L500.4050, L100.0100 ####[facility] [address] [place], [address] Phosphoruson 05-24-2024 Phosphate [Mass/Vol] 2.8 mg/dL Normal 2.5-4.9 [facility] Comment on above: Order Comment: Comme nts: NPO at NE prior to lipid panel Performed By: #### L 501.2300, L501.5200, L500.4050, L100.0100 ####[facility] [address] [place], [address] 12 Lead EKGon 05-23-2024 12 Lead EKG Normal [facility] Basic Metabolic Profile (BMP )on 05-23-2024 BUN/CRE 32.7 RATIO High 10-20 [facility] Comment on above: Performed By: #### L 500.4100, L300.4310, L100.0100, L500.2500, L300.3900 ####[facility] [address] [place], [address] CA,Total 9.7 mg/dL Normal 8.5-10.1 [facility] Comment on above: Performed By: #### L 500.4100, L300.4310, L100.0100, L500.2500, L300.3900 ####[facility] [address] [place], [address] Chloride [Moles/Vol] 108 mmol/L High 98-107 [facility] Comment on above: Performed By: #### L 500.4100, L300.4310, L100.0100, L500.2500, L300.3900 ####[facility] [address] [place], [address] CO2 [Moles/Vol] 22.0 mmol/L Normal 21.0-32.0 [facility] Comment on above: Performed By: #### L 500.4100, L300.4310, L100.0100, L500.2500, L300.3900 ####[facility] [address] [place], [address] Creatinine [Mass/Vol] 1.01 mg/dL Normal 0.55-1.02 [facility] Comment on above: Result Comment: The validity of the calculated GFR GFRAA in patients over70 years has not been determined. Clinical correlation isessential. Performed By: #### L 500.4100, L300.4310, L100.0100, L500.2500, L300.3900 ####[facility] [address] [place], [address] ECRCL 51.09 ml/min Normal [facility] Comment on above: Performed By: #### L 500.4100, L300.4310, L100.0100, L500.2500, L300.3900 ####[facility] [address] [place], [address] EST GFR - AA 70 mL/min Normal >60 [facility] Comment on above: Result Comment: Afri can [place]ij[place] GFR Calc Performed By: #### L 500.4100, L300.4310, L100.0100, L500.2500, L300.3900 ####[facility] [address] [place], [address] GAP 9 Normal 5-15 [facility] Comment on above: Performed By: #### L 500.4100, L300.4310, L100.0100, L500.2500, L300.3900 ####[facility] [address] [place], [address] GFR/1.73 sq M.predicted among non-blacks MDRD (S/P/Bld) [Vol rate/Area] 58 mL/min/{1.73_m2} Low >60 [facility] Comment on above: Result Comment: Non- GFR Calc Performed By: #### L 500.4100, L300.4310, L100.0100, L500.2500, L300.3900 ####[facility] [address] [place], [address] Glucose [Mass/Vol] 173 mg/dL High 74-106 [facility] Comment on above: Result Comment: Fast ing Glucose result greater than or equal to 126 mg/dLsuggests DIABETES MELLITUS per A.D.A. criteria. Performed By: #### L 500.4100, L300.4310, L100.0100, L500.2500, L300.3900 ####[facility] [address] [place], [address] Potassium [Moles/Vol] 3.8 mmol/L Normal 3.5-5.1 [facility] Comment on above: Performed By: #### L 500.4100, L300.4310, L100.0100, L500.2500, L300.3900 ####[facility] [address] [place], [address] Sodium [Moles/Vol] 139 mmol/L Normal 136-145 [facility] Comment on above: Performed By: #### L 500.4100, L300.4310, L100.0100, L500.2500, L300.3900 ####[facility] [address] [place], [address] Urea nitrogen [Mass/Vol] 33 mg/dL High 7-18 [facility] Comment on above: Performed By: #### L 500.4100, L300.4310, L100.0100, L500.2500, L300.3900 ####[facility] [address] [place], [address] Bedside Glucoseon 05-23-2024 FINGERSTICK GLU 205 mg/dL High 74-106 [facility] Comment on above: Result Comment: MORGAN GEMENT OF PATIENT CARE PER NURSING PROTOCOL Performed By: #### L 501.080 ####[facility] [address] [place], [address] FINGERSTICK GLU 176 mg/dL High 74-106 [facility] Comment on above: Result Comment: MORGAN GEMENT OF PATIENT CARE PER NURSING PROTOCOL Performed By: #### L 501.080 ####[facility] [address] [place], [address] FINGERSTICK GLU 199 mg/dL High 74-106 [facility] Comment on above: Result Comment: MORGAN GEMENT OF PATIENT CARE PER NURSING PROTOCOL Performed By: #### L 501.080 ####[facility] [address] [place], [address] CBC W/Diff, Automatedon 10- Absolute Lymph 4.13 X10 3/uL Normal 0.83-4.51 [facility] Comment on above: Performed By: #### L 500.4100, L300.4310, L100.0100, L500.2500, L300.3900 ####[facility] [address] [place], [address] Absolute Neut 4.5 X10 3/uL Normal 2.0-7.7 [facility] Comment on above: Performed By: #### L 500.4100, L300.4310, L100.0100, L500.2500, L300.3900 ####[facility] [address] [place], [address] Basophils/100 WBC (Bld) 0.6 % Normal 0-1 [facility] Comment on above: Performed By: #### L 500.4100, L300.4310, L100.0100, L500.2500, L300.3900 ####[facility] [address] [place], [address] Eosinophils/100 WBC (Bld) 3.9 % Normal 0-5 [facility] Comment on above: Performed By: #### L 500.4100, L300.4310, L100.0100, L500.2500, L300.3900 ####[facility] [address] [place], [address] Erythrocyte distribution width (RBC) [Ratio] 14.2 % Normal 11.6-14.6 [facility] Comment on above: Performed By: #### L 500.4100, L300.4310, L100.0100, L500.2500, L300.3900 ####[facility] [address] [place], [address] Hematocrit (Bld) [Volume fraction] 38.9 % Normal 37-47 [facility] Comment on above: Performed By: #### L 500.4100, L300.4310, L100.0100, L500.2500, L300.3900 ####[facility] [address] [place], [address] Hemoglobin (Bld) [Mass/Vol] 11.8 g/dL Low 12.0-15.0 [facility] Comment on above: Performed By: #### L 500.4100, L300.4310, L100.0100, L500.2500, L300.3900 ####[facility] [address] [place], [address] IG% 0.800 Normal 0.0-0.9 [facility] Comment on above: Result Comment: IG% - Immature Granulocytes (promyelocytes, myelocytes andmetamyelocytes) > 1% indicates that a LEFT SHIFT is Present. Performed By: #### L 500.4100, L300.4310, L100.0100, L500.2500, L300.3900 ####[facility] [address] [place], [address] Lymphocytes/100 WBC (Bld) 41.1 % High 19-41 [facility] Comment on above: Performed By: #### L 500.4100, L300.4310, L100.0100, L500.2500, L300.3900 ####[facility] [address] [place], [address] MCH (RBC) [Entitic mass] 28.5 pg Normal 27.0-32.0 [facility] Comment on above: Performed By: #### L 500.4100, L300.4310, L100.0100, L500.2500, L300.3900 ####[facility] [address] [place], [address] MCHC (RBC) [Mass/Vol] 30.3 g/dL Low 32-36 [facility] Comment on above: Performed By: #### L 500.4100, L300.4310, L100.0100, L500.2500, L300.3900 ####[facility] [address] [place], [address] MCV (RBC) [Entitic vol] 94.0 fL Normal 81-99 [facility] Comment on above: Performed By: #### L 500.4100, L300.4310, L100.0100, L500.2500, L300.3900 ####[facility] [address] [place], [address] Monocytes/100 WBC (Bld) 9.2 % Normal 0-10 [facility] Comment on above: Performed By: #### L 500.4100, L300.4310, L100.0100, L500.2500, L300.3900 ####[facility] [address] [place], [address] Neutrophils/100 WBC (Bld) 44.4 % Low 47-70 [facility] Comment on above: Performed By: #### L 500.4100, L300.4310, L100.0100, L500.2500, L300.3900 ####[facility] [address] [place], [address] Nucleated RBC (Bld) [#/Vol] 0 10*3/uL Normal 0-5 [facility] Comment on above: Performed By: #### L 500.4100, L300.4310, L100.0100, L500.2500, L300.3900 ####[facility] [address] [place], [address] Platelet mean volume (Bld) [Entitic vol] 9.8 fL Normal 6.2-12.0 [facility] Comment on above: Performed By: #### L 500.4100, L300.4310, L100.0100, L500.2500, L300.3900 ####[facility] [address] [place], [address] Platelets (Bld) [#/Vol] 330 10*3/uL Normal 150-450 [facility] Comment on above: Performed By: #### L 500.4100, L300.4310, L100.0100, L500.2500, L300.3900 ####[facility] [address] [place], [address] RBC (Bld) [#/Vol] 4.14 10*6/uL Low 4.2-5.4 [facility] Comment on above: Performed By: #### L 500.4100, L300.4310, L100.0100, L500.2500, L300.3900 ####[facility] [address] [place], [address] RDW SD 49.1 fl High 35.1-43.9 [facility] Comment on above: Performed By: #### L 500.4100, L300.4310, L100.0100, L500.2500, L300.3900 ####[facility] [address] [place], [address] WBC (Bld) [#/Vol] 10.1 10*3/uL Normal 4.4-11.0 [facility] Comment on above: Performed By: #### L 500.4100, L300.4310, L100.0100, L500.2500, L300.3900 ####[facility] [address] [place], [address] Chest 1 Viewon 05-23-2024 Chest 1 View Normal [facility] Echo Completeon 05-23-2024 Echo Complete Normal [facility] Emergency Department Summary on 05-23-2024 Emergency Department Summary Normal [facility] Foot 2 Viewson 05-23-2024 Foot 2 Views Normal [facility] H AND P Exam - Hospitaliston 05-23-2024 H&P Exam - Hospitalist Normal [facility] Hemoglobin A1con 05-23-2024 HbA1c (Bld) [Mass fraction] 7.2 % High 3.8-5.6 [facility] Comment on above: Result Comment: Norm al < 5.7 % Prediabetic 5.7 - 6.4 % Diabetic >or= 6.5 % Please note range changes. Performed By: #### L 501.9520, L501.9985 ####[facility] [address] [place], [address] Legionella Antigen Urineon 1 LEGU Normal [facility] Comment on above: Performed By: #### M 300.4500, M300.4600 ####[facility] [address] [place], [address] Lipid Profileon 05-23-2024 Cholesterol [Mass/Vol] 268 mg/dL High 200 [facility] Comment on above: Result Comment: <200 mg/dL Desirable 200-240 mg/dL Borderline >240 mg/dL High Risk Performed By: #### L 500.4100, L300.4310, L100.0100, L500.2500, L300.3900 ####[facility] [address] [place], [address] Cholesterol in HDL [Mass/Vol] 54 mg/dL Normal [facility] Comment on above: Result Comment: The drugs N-Acetylcysteine and Metamizole may falselydepress this assay. Reference Range HDL <40 mg/dL Low HDL Cholesterol HDL >or= 60 mg/dL High HDL Cholesterol Performed By: #### L 500.4100, L300.4310, L100.0100, L500.2500, L300.3900 ####[facility] [address] [place], [address] Cholesterol in LDL [Mass/Vol] 173 mg/dL High 0-130 [facility] Comment on above: Performed By: #### L 500.4100, L300.4310, L100.0100, L500.2500, L300.3900 ####[facility] [address] [place], [address] Cholesterol in VLDL [Mass/Vol] 41 mg/dL High 5-40 [facility] Comment on above: Performed By: #### L 500.4100, L300.4310, L100.0100, L500.2500, L300.3900 ####[facility] [address] [place], [address] Triglyceride [Mass/Vol] 207 mg/dL High [facility] Comment on above: Result Comment: The drugs N-Acetylcysteine and Metamizole may falselydepress this assay.Serum Triglycerides Reference Interval Normal <150 mg/dL Borderline high 150 - 199 mg/dL High 200 - 499 mg/dL Very High > or = 500 mg/dL Performed By: #### L 500.4100, L300.4310, L100.0100, L500.2500, L300.3900 ####[facility] [address] [place], [address] M100.678on 05-23-2024 M100.678 Pending SARS-CoV-2 (COVID 19) Negative INFLUENZA A Negative INFLUENZA B Negative RSV PCR Negative Normal [facility] Comment on above: Performed By: #### M 100.678 ####[facility] [address] [place], [address] MR/CON.PCM.NEon 05-23-2024 MR/CON.PCM.NE Normal [facility] Magnesiumon 05-23-2024 Magnesium [Mass/Vol] 2.2 mg/dL Normal 1.6-2.6 [facility] Comment on above: Performed By: #### L 501.5200, L5000.0010 ####[facility] [address] [place], [address] Partial Thromboplast Timeon 05-23-2024 aPTT Coag (Bld) [Time] 25.5 s Normal 24.1-36.2 [facility] Comment on above: Performed By: #### L 500.4100, L300.4310, L100.0100, L500.2500, L300.3900 ####[facility] [address] [place], [address] Prothrombin Time w/INRon INR Coag (PPP) [Relative time] 1.0 {INR} Normal [facility] Comment on above: Performed By: #### L 500.4100, L300.4310, L100.0100, L500.2500, L300.3900 ####[facility] [address] [place], [address] PT Coag (PPP) [Time] 13.0 s Normal 11.7-14.9 [facility] Comment on above: Performed By: #### L 500.4100, L300.4310, L100.0100, L500.2500, L300.3900 ####[facility] [address] [place], [address] STROKE Brain/Head without Co nton 05-23-2024 STROKE Brain/Head without Cont Normal [facility] STROKE CTA Head AND Neck W/C onon 05-23-2024 STROKE CTA Head AND Neck W/Con Normal [facility] Strep pneumoniae Antig(UR,CS F)on 05-23-2024 STPAG Normal [facility] Comment on above: Performed By: #### M 300.4500, M300.4600 ####[facility] [address] [place], [address] Thyroid Stim Hormone (TSH)on 05-23-2024 TSH 2.470 uIU/mL Normal 0.358-3.740 [facility] Comment on above: Performed By: #### L 501.9520, L501.9937 ####[facility] [address] [place], [address] Internal Medicine Office Vis iton 05-03-2024 Internal Medicine Office Visit Normal [facility] Decalcification bone/plaqueo n 03-24-2024 Decalcification bone/plaque Normal [facility] Comment on above: Performed By: #### P DEC ####[facility] [address] [place], [address] Absolute lymphocyte countOrd ered By: Danny Herrera on 10-16-2023 Lymphocytes Auto (Unsp spec) [#/Vol] 1.66 10*3/uL 0.83-4.51 [facility] Automated lymphocyte count a s percentage of total leukocytesOrdered By: Danny Herrera on 10-16-2023 Lymphocytes/100 WBC Auto (Unsp spec) 20.6 % 19-41 [facility] Basophil percentageOrdered B y: Danny Herrera on 10-16-2023 Basophils/100 WBC (Bld) 0.2 % 0-1 [facility] Bilirubin [Mass/Vol] 0.50 mg/dL 0.20-1.00 [facility] Comment on above: For patients on eltr ombopag therapy, use of Dimension [place] TBIL is not recommended. Chloride [Moles/Vol] 110 mmol/L 98-107 [facility] Cholesterol [Mass/Vol] 283 mg/dL <200 [facility] Comment on above: <200 mg/dL Desirable 200-240 mg/dL Borderline >240 mg/dL High Risk Eosinophils/100 WBC (Bld) 1.7 % 0-5 [facility] Glucose [Mass/Vol] 166 mg/dL 74-106 [facility] Comment on above: Fasting Glucose resu lt greater than or equal to 126 mg/dL suggests DIABETES MELLITUS per A.D.A. criteria. Hemoglobin (Bld) [Mass/Vol] 12.3 g/dL 12.0-15.0 [facility] Monocytes/100 WBC (Bld) 6.2 % 0-10 [facility] Neutrophils (Bld) [#/Vol] 5.7 10*3/uL 2.0-7.7 [facility] Neutrophils/100 WBC (Bld) 70.8 % 47-70 [facility] Potassium [Moles/Vol] 4.2 mmol/L 3.5-5.1 [facility] Protein [Mass/Vol] 8.0 g/dL 6.4-8.2 [facility] Sodium [Moles/Vol] 141 mmol/L 136-145 [facility] Triglyceride [Mass/Vol] 228 mg/dL <199 [facility] Comment on above: The drugs N-Acetylcy steine and Metamizole may falsely depress this assay.Serum Triglycerides Reference Interval Normal <150 mg/dL Borderline high 150 - 199 mg/dL High 200 - 499 mg/dL Very High > or = 500 mg/dL WBC (Bld) [#/Vol] 8.1 10*3/uL 4.4-11.0 [facility] Determination of erythrocyte mean corpuscular volume (MCV)Ordered By: Danny Herrera on 10-16-2023 MCV (RBC) [Entitic vol] 91.7 fL 81-99 [facility] Erythrocyte distribution wid th ratioOrdered By: [facility] Willet[facility]ach on 10-16-2023 Erythrocyte distribution width (RBC) [Ratio] 14.5 % 11.6-14.6 [facility] Erythrocyte distribution wid th standard deviationOrdered By: [facility]ejorge Willettrach on 10-16-2023 Erythrocyte distribution width (RBC) [Entitic vol] 49.0 fL 35.1-43.9 [facility] Erythrocyte sedimentation ra teOrdered By: [facility]rokeejorge Herrera on 10-16-2023 ESR (Bld) [Velocity] 43 mm/h 0-30 [facility] Hematocrit Auto (Bld) [Volum e fraction]Ordered By: [facility]ejorge Willettrach on 10-16-2023 Hematocrit (Bld) [Volume fraction] 38.6 % 37-47 [facility] Immature granulocytes/100 WB C Auto (Bld)Ordered By: sloane Herrera on 10-16-2023 Immature granulocytes/100 WBC (Bld) 0.500 % 0.0-0.9 [facility] Comment on above: IG% - Immature Granu locytes (promyelocytes, myelocytes and metamyelocytes) > 1% indicates that a LEFT SHIFT is Present. Laboratory - Chemistry and C hemistry - challengeOrdered By: Danny Herrera on 10-16-2023 Albumin/Globulin [Mass ratio] 0.9 {ratio} 0.9-2.4 [facility] ALP [Catalytic activity/Vol] 94 U/L 45-117 [facility] ALT [Catalytic activity/Vol] 26 U/L 13-56 [facility] Cholesterol in HDL [Mass/Vol] 56 mg/dL >40 [facility] Comment on above: The drugs N-Acetylcy steine and Metamizole may falsely depress this assay. Reference Range HDL <40 mg/dL Low HDL Cholesterol HDL >or= 60 mg/dL High HDL Cholesterol Cholesterol in LDL [Mass/Vol] 181 mg/dL 0-130 [facility] CO2 [Moles/Vol] 21.0 mmol/L 21.0-32.0 [facility] Globulin (S) [Mass/Vol] 4.3 g/dL 2.2-4.2 [facility] Urea nitrogen/Creatinine [Mass ratio] 30.2 mg/mg 10-20 [facility] Laboratory - Hematology and Cell countsOrdered By: Danny Herrera on 10-16-2023 MCH (RBC) [Entitic mass] 29.2 pg 27.0-32.0 [facility] MCHC (RBC) [Mass/Vol] 31.9 g/dL 32-36 [facility] Nucleated RBC/100 WBC (Bld) [Ratio] 0 % 0-5 [facility] Platelet mean volume (Bld) [Entitic vol] 10.2 fL 6.2-12.0 [facility] Platelets (Bld) [#/Vol] 298 10*3/uL 150-450 [facility] No Panel InformationOrdered By: Danny Herrera on 10-16-2023 C-Reactive Protein Extended Range 7.63 mg/L 0.0-3.0 [facility] Comment on above: C-Reactive Protein ( CRP) provides useful information for thediagnosis, therapy and monitoring of inflammatory processesand associated diseases. For the evaluation of Relative Riskfor Cardiovascular Disease, a High Sensitivity CRP (HSCRP)should be ordered. Estimated GFR (MDRD) Amer 85 mL/min >60 [facility] Comment on above: GFR Calc Estimated GFR (MDRD) Non-Af Amer 70 mL/min >60 [facility] Comment on above: Non- GFR Calc Vitamin D 25-Hydroxy 35.4 ng/mL [facility] Comment on above: Vitamin D 25(OH) Sta tus Range Deficiency <20 ng/mL (50nmol/L) Insufficiency 20 - 30 ng/mL (50 - 75 nmol/L) Sufficiency 30 - 100 ng/mL (75 - 250 nmol/L) Toxicity >100 ng/mL (>250 nmol/L) VLDL Cholesterol 46 mg/dL 5-40 [facility] RBC Auto (Bld) [#/Vol]Ordere d By: Danny Herrera on 10-16-2023 RBC (Bld) [#/Vol] 4.21 10*6/uL 4.2-5.4 [facility] Serum or plasma calcium digna urement (mass/volume)Ordered By: Danny Herrera on 10-16-2023 Calcium [Mass/Vol] 9.7 mg/dL 8.5-10.1 [facility] Serum or plasma creatinine m easurement (mass/volume)Ordered By: Danny Herrera on 10-16-2023 Creatinine [Mass/Vol] 0.86 mg/dL 0.55-1.02 [facility] Comment on above: The validity of the calculated GFR & GFRAA in patients over 70 years has not been determined. Clinical correlation is essential. Serum or plasma urea nitroge n measurement (mass/volume)Ordered By: Danny Herrera on 10-16-2023 Urea nitrogen [Mass/Vol] 26 mg/dL 7-18 [facility] Thin prep Papanicolaou smear with manual screeningOrdered By: Danny Herrera on 10-16-2023 Thin prep Papanicolaou smear with manual screening 3.7 g/dL 3.2-5.0 [facility] Thin prep Papanicolaou smear with manual screening 21 U/L 15-37 [facility] Thin prep Papanicolaou smear with manual screening 10 5-15 [facility] Whole blood hemoglobin A1c/t otal hemoglobin ratio (mass fraction)Ordered By: Danny Herrera on 10-16-2023 HbA1c (Bld) [Mass fraction] 7.7 % 3.8-5.6 [facility] Comment on above: Normal < 5.7 % Predi abetic 5.7 - 6.4 % Diabetic >or= 6.5 % Please note range changes. Basophil percentageOrdered B y: Nazario Ha on 11-27-2022 Cholesterol [Mass/Vol] 243 mg/dL <200 [facility] Comment on above: <200 mg/dL Desirable 200-240 mg/dL Borderline >240 mg/dL High Risk Triglyceride [Mass/Vol] 267 mg/dL <199 [facility] Comment on above: The drugs N-Acetylcy steine and Metamizole may falsely depress this assay.Serum Triglycerides Reference Interval Normal <150 mg/dL Borderline high 150 - 199 mg/dL High 200 - 499 mg/dL Very High > or = 500 mg/dL No Panel InformationOrdered By: Nazario Ha on 11-27-2022 Thyroid Stimulating Hormone (TSH) 0.46 uIU/mL 0.358-3.74 [facility] Serum or plasma cholesterol in HDL measurement (mass/volume)Ordered By: Nazario Ha on 11-27-2022 Cholesterol in HDL [Mass/Vol] 48 mg/dL >40 [facility] Comment on above: The drugs N-Acetylcy steine and Metamizole may falsely depress this assay. Reference Range HDL <40 mg/dL Low HDL Cholesterol HDL >or= 60 mg/dL High HDL Cholesterol Serum or plasma cholesterol in VLDL measurement (mass/volume)Ordered By: Nazario Ha on 11-27-2022 Cholesterol in VLDL [Mass/Vol] 53 mg/dL 5-40 [facility] Serum or plasma low density lipoprotein (LDL) cholesterol measurement (mass/volume)Ordered By: Nazario Ha on 11-27-2022 Cholesterol in LDL [Mass/Vol] 142 mg/dL 0-130 [facility] Whole blood hemoglobin A1c/t otal hemoglobin ratio (mass fraction)Ordered By: Nazario Ha on 11-27-2022 HbA1c (Bld) [Mass fraction] 6.8 % 3.8-5.6 [facility] Comment on above: Normal < 5.7 % Predi abetic 5.7 - 6.4 % Diabetic >or= 6.5 % Please note range changes. Absolute lymphocyte countOrd ered By: Dr. Johnson on 11-01-2022 Lymphocytes Auto (Unsp spec) [#/Vol] 1.91 10*3/uL 0.83-4.51 [facility] Basophil percentageOrdered B y: Dr. Johnson on 11-01-2022 Basophils/100 WBC (Bld) 0.2 % 0-1 [facility] Bilirubin [Mass/Vol] 0.40 mg/dL 0.20-1.00 [facility] Comment on above: For patients on eltr ombopag therapy, use of Dimension [place] TBIL is not recommended. Chloride [Moles/Vol] 103 mmol/L 98-107 [facility] Eosinophils/100 WBC (Bld) 0.3 % 0-5 [facility] Glucose [Mass/Vol] 222 mg/dL 74-106 [facility] Comment on above: Glucose result great er than or equal to 200 mg/dLsuggests DIABETES MELLITUS per A.D.A. criteria. Neutrophils (Bld) [#/Vol] 7.3 10*3/uL 2.0-7.7 [facility] Neutrophils/100 WBC (Bld) 72.5 % 47-70 [facility] Potassium [Moles/Vol] 4.0 mmol/L 3.5-5.1 [facility] Protein [Mass/Vol] 8.6 g/dL 6.4-8.2 [facility] Sodium [Moles/Vol] 135 mmol/L 136-145 [facility] WBC (Bld) [#/Vol] 10.0 10*3/uL 4.4-11.0 [facility] Blood erythrocytes count (nu mber/volume)Ordered By: Dr. Johnson on 11-01-2022 RBC (Bld) [#/Vol] 4.03 10*6/uL 4.2-5.4 [facility] Blood hemoglobin measurement (mass/volume)Ordered By: Dr. Johnson on 11-01-2022 Hemoglobin (Bld) [Mass/Vol] 11.1 g/dL 12.0-15.0 [facility] Blood lymphocytes/100 leukoc ytesOrdered By: Dr. Johnson on 11-01-2022 Lymphocytes/100 WBC (Bld) 19.1 % 19-41 [facility] Blood monocytes/100 leukocyt esOrdered By: Dr. Johnson on 11-01-2022 Monocytes/100 WBC (Bld) 7.4 % 0-10 [facility] Blood platelet mean volumeOr dered By: Dr. Johnson on 11-01-2022 Platelet mean volume (Bld) [Entitic vol] 9.8 fL 6.2-12.0 [facility] Determination of erythrocyte mean corpuscular volume (MCV)Ordered By: Dr. Johnson on 11-01-2022 MCV (RBC) [Entitic vol] 89.3 fL 81-99 [facility] Erythrocyte sedimentation ra teOrdered By: Dr. Johnson on 11-01-2022 ESR (Bld) [Velocity] 99 mm/h 0-30 [facility] Hematocrit Auto (Bld) [Volum e fraction]Ordered By: Dr. Johnson on 11-01-2022 Hematocrit (Bld) [Volume fraction] 36.0 % 37-47 [facility] Laboratory - Chemistry and C hemistry - challengeOrdered By: Dr. Johnson on 11-01-2022 ALP [Catalytic activity/Vol] 76 U/L 45-117 [facility] ALT [Catalytic activity/Vol] 20 U/L 13-56 [facility] CO2 [Moles/Vol] 26.0 mmol/L 21.0-32.0 [facility] Globulin (S) [Mass/Vol] 5.4 g/dL 2.2-4.2 [facility] Urea nitrogen/Creatinine [Mass ratio] 27.9 mg/mg 10-20 [facility] - Hematology and Cell countsOrdered By: Dr. Johnson on 11-01-2022 Erythrocyte distribution width (RBC) [Entitic vol] 45.0 fL 35.1-43.9 [facility] Erythrocyte distribution width (RBC) [Ratio] 13.6 % 11.6-14.6 [facility] Immature granulocytes/100 WBC (Bld) 0.500 % 0.0-0.9 [facility] Comment on above: IG% - Immature Granu locytes (promyelocytes, myelocytes and metamyelocytes) > 1% indicates that a LEFT SHIFT is Present. MCH (RBC) [Entitic mass] 27.5 pg 27.0-32.0 [facility] Nucleated RBC/100 WBC (Bld) [Ratio] 0 % 0-5 [facility] MCHC Auto (RBC) [Mass/Vol]Or dered By: Dr. Johnson on 11-01-2022 MCHC (RBC) [Mass/Vol] 30.8 g/dL 32-36 [facility] No Panel InformationOrdered By: Dr. Johnson on 11-01-2022 Estimated GFR (MDRD) Amer 78 mL/min >60 [facility] Comment on above: GFR Calc Estimated GFR (MDRD) Non-Af Amer 64 mL/min >60 [facility] Comment on above: Non- GFR Calc Platelets bldOrdered By: Dr. Johnson on 11-01-2022 Platelets (Bld) [#/Vol] 573 10*3/uL 150-450 [facility] Serum or plasma C reactive p rotein measurement (mass/volume)Ordered By: Dr. Johnson on 11-01-2022 CRP [Mass/Vol] 108.00 mg/L 0.0-3.0 [facility] Comment on above: C-Reactive Protein ( CRP) provides useful information for thediagnosis, therapy and monitoring of inflammatory processesand associated diseases. For the evaluation of Relative Riskfor Cardiovascular Disease, a High Sensitivity CRP (HSCRP)should be ordered. Serum or plasma albumin digna urement (mass/volume)Ordered By: Dr. Johnson on 11-01-2022 Albumin [Mass/Vol] 3.2 g/dL 3.2-5.0 [facility] Serum or plasma albumin/glob ulin mass ratioOrdered By: Dr. Johnson on 11-01-2022 Albumin/Globulin [Mass ratio] 0.6 {ratio} 0.9-2.4 [facility] Serum or plasma calcium digna urement (mass/volume)Ordered By: Dr. Johnson on 11-01-2022 Calcium [Mass/Vol] 10.1 mg/dL 8.5-10.1 [facility] Serum or plasma creatinine m easurement (mass/volume)Ordered By: Dr. Johnson on 11-01-2022 Creatinine [Mass/Vol] 0.93 mg/dL 0.55-1.02 [facility] Comment on above: The validity of the calculated GFR & GFRAA in patients over 70 years has not been determined. Clinical correlation is essential. Serum or plasma urea nitroge n measurement (mass/volume)Ordered By: Dr. Johnson on 11-01-2022 Urea nitrogen [Mass/Vol] 26 mg/dL 7-18 [facility] Thin prep Papanicolaou smear with manual screeningOrdered By: Dr. Johnson on 11-01-2022 Thin prep Papanicolaou smear with manual screening 17 U/L 15-37 [facility] Thin prep Papanicolaou smear with manual screening 6 5-15 [facility] Absolute lymphocyte counton 11-10-2021 Lymphocytes Auto (Unsp spec) [#/Vol] 1.38 10*3/uL 0.83-4.51 [facility] Work Phone: [phone] Basophil percentageon 2021 Basophils/100 WBC (Bld) 0.2 % 0-1 [facility] Work Phone: [phone] Bilirubin [Mass/Vol] 0.30 mg/dL 0.20-1.00 [facility] Work Phone: [phone] Comment on above: For patients on eltr ombopag therapy, use of Dimension [place] TBIL is not recommended. Chloride [Moles/Vol] 108 mmol/L 98-107 [facility] Work Phone: Eosinophils/100 WBC (Bld) 0.7 % 0-5 [facility] Work Phone: [phone] Glucose [Mass/Vol] 189 mg/dL 74-106 [facility] Work Phone: [phone] Comment on above: Fasting Glucose resu lt greater than or equal to 126 mg/dL suggests DIABETES MELLITUS per A.D.A. criteria. Neutrophils (Bld) [#/Vol] 8.0 10*3/uL 2.0-7.7 [facility] Work Phone: [phone] Neutrophils/100 WBC (Bld) 80.1 % 47-70 [facility] Work Phone: [phone] Potassium [Moles/Vol] 4.5 mmol/L 3.5-5.1 [facility] Work Phone: [phone] Protein [Mass/Vol] 8.6 g/dL 6.4-8.2 [facility] Work Phone: Sodium [Moles/Vol] 139 mmol/L 136-145 [facility] Work Phone: WBC (Bld) [#/Vol] 9.9 10*3/uL 4.4-11.0 [facility] Work Phone: Blood erythrocytes count (nu mber/volume)on 11-10-2021 RBC (Bld) [#/Vol] 4.36 10*6/uL 4.2-5.4 [facility]: Blood hemoglobin measurement (mass/volume)on 11-10-2021 Hemoglobin (Bld) [Mass/Vol] 12.0 g/dL 12.0-15.0 [facility] Work Phone: Blood lymphocytes/100 leukoc yteson 11-10-2021 Lymphocytes/100 WBC (Bld) 13.9 % 19-41 [facility] Work Phone: Blood monocytes/100 leukocyt eson 11-10-2021 Monocytes/100 WBC (Bld) 4.8 % 0-10 [facility] Work Phone: Blood platelet mean volumeon 11-10-2021 Platelet mean volume (Bld) [Entitic vol] 9.7 fL 6.2-12.0 [facility] Work Phone: [phone] Determination of erythrocyte mean corpuscular volume (MCV)on 11-10-2021 MCV (RBC) [Entitic vol] 86.7 fL 81-99 [facility] Work Phone: Erythrocyte sedimentation ra sreedhar 11-10-2021 ESR (Bld) [Velocity] 40 mm/h 0-30 [facility] Work Phone: Hematocrit Auto (Bld) [Volum e fraction]on 11-10-2021 Hematocrit (Bld) [Volume fraction] 37.8 % 37-47 [facility] Work Phone: [phone] Laboratory - Chemistry and C hemistry - challengeon 11-10-2021 ALP [Catalytic activity/Vol] 73 U/L 45-117 [facility] Work Phone: ALT [Catalytic activity/Vol] 17 U/L 13-56 [facility] Work Phone: [phone] CO2 [Moles/Vol] 25.0 mmol/L 21.0-32.0 [facility] Work Phone: [phone] Globulin (S) [Mass/Vol] 5.1 g/dL 2.2-4.2 [facility] Work Phone: [phone] Urea nitrogen/Creatinine [Mass ratio] 31.7 mg/mg 10-20 [facility] Work Phone: [phone] Laboratory - Hematology and Cell countson 11-10-2021 Erythrocyte distribution width (RBC) [Entitic vol] 53.5 fL 35.1-43.9 [facility] Work Phone: Erythrocyte distribution width (RBC) [Ratio] 16.7 % 11.6-14.6 [facility] Work Phone: Immature granulocytes/100 WBC (Bld) 0.300 % 0.0-0.9 [facility] Work Phone: Comment on above: IG% - Immature Granu locytes (promyelocytes, myelocytes and metamyelocytes) > 1% indicates that a LEFT SHIFT is Present. MCH (RBC) [Entitic mass] 27.5 pg 27.0-32.0 [facility] Work Phone: Nucleated RBC/100 WBC (Bld) [Ratio] 0 % 0-5 [facility] Work Phone: MCHC Auto (RBC) [Mass/Vol]on 11-10-2021 MCHC (RBC) [Mass/Vol] 31.7 g/dL 32-36 [facility] Work Phone: No Panel Informationon 11-10 Estimated GFR (MDRD) Amer 79 mL/min >60 [facility] Work Phone: Comment on above: GFR Calc Estimated GFR (MDRD) Non-Af Amer 66 mL/min >60 [facility] Work Phone: Comment on above: Non- GFR Calc Platelets bldon 11-10-2021 Platelets (Bld) [#/Vol] 377 10*3/uL 150-450 [facility] Work Phone: Serum or plasma C reactive p rotein measurement (mass/volume)on 11-10-2021 CRP [Mass/Vol] 21.40 mg/L 0.0-3.0 [facility] Work Phone: Comment on above: C-Reactive Protein ( CRP) provides useful information for thediagnosis, therapy and monitoring of inflammatory processesand associated diseases. For the evaluation of Relative Riskfor Cardiovascular Disease, a High Sensitivity CRP (HSCRP)should be ordered. Serum or plasma albumin digna urement (mass/volume)on 11-10-2021 Albumin [Mass/Vol] 3.5 g/dL 3.2-5.0 [facility] Work Phone: Serum or plasma albumin/glob ulin mass ratioon 11-10-2021 Albumin/Globulin [Mass ratio] 0.7 {ratio} 0.9-2.4 [facility] Work Phone: Serum or plasma calcium digna urement (mass/volume)on 11-10-2021 Calcium [Mass/Vol] 9.5 mg/dL 8.5-10.1 [facility] Work Phone: Serum or plasma creatinine m easurement (mass/volume)on 11-10-2021 Creatinine [Mass/Vol] 0.92 mg/dL 0.55-1.02 [facility] Work Phone: Comment on above: The validity of the calculated GFR & GFRAA in patients over 70 years has not been determined. Clinical correlation is essential. Serum or plasma urea nitroge n measurement (mass/volume)on 11-10-2021 Urea nitrogen [Mass/Vol] 29 mg/dL 7-18 [facility] Work Phone: Thin prep Papanicolaou smear with manual screeningon 11-10-2021 Thin prep Papanicolaou smear with manual screening 14 U/L 15-37 [facility] Work Phone: Thin prep Papanicolaou smear with manual screening 6 5-15 [facility] Work Phone: PROGRESSon 04-29-2018 Protein mass conc HNO ID: [id number] thor: [place] PageService: (none)Author Type: Nurse PractitionerType: Progress NotesFiled: 04/29/2018 6:39 PMNote Text:Patient triaged. Patient presented to express care with leftsubconjunctival hemorrhage, denies injury, trauma or fall, deniesdizziness, lightheadedness, headache, visual changes or disturbances,shortness of breath, tightness in chest, chest pain, numbness, tingling,weakness.Patient states that her blood pressure is elevated.BP reading at time of triage: 152/80Heart: RRR, no muirmur, rub, gallop, no JVD, bilat distal pulses palpableand evenNeuro: PERRLA, EOMI, no nystagmusLungs: CTABAdvised patient to follow up with PCPIf new or worsening symptoms proceed to ER Normal [facility] Vital Signs Date Time Vital Sign Value 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 Danny Herrera MD Work Phone: [facility] 03-08-2025 14:34-0400 Body temperature 98 [degF] Dr. Danny Herrera MD Work Phone: [facility] 03-08-2025 14:34-0400 Diastolic blood pressure 74 mm[Hg] Dr. Danny Herrera MD Work Phone: [facility] 03-08-2025 14:34-0400 Heart rate 105 /min Dr. Danny Herrera MD Work Phone: [facility] 03-08-2025 14:34-0400 Respiratory rate 16 /min Dr. Danny Herrera MD Work Phone: [facility] 03-08-2025 14:34-0400 SaO2% (BldA) [Mass fraction] 95 % Dr. Danny Herrera MD Work Phone: [facility] 03-08-2025 14:34-0400 Systolic blood pressure 161 mm[Hg] Dr. Danny Herrera MD Work Phone: [facility] 03-01-2025 07:56-0400 Body height 154.[address] Danny Herrera MD Work Phone: [facility] 03-01-2025 07:56-0400 Body mass index (BMI) [Ratio] 28.5 kg/m2 Dr. Danny Herrera MD Work Phone: [facility] 03-01-2025 07:56-0400 Body temperature 98.6 [degF] Dr. Danny Herrera MD Work Phone: [facility] 03-01-2025 07:56-0400 Body weight 68.[address] Danny Herrera MD Work Phone: [facility] 03-01-2025 07:56-0400 Diastolic blood pressure 70 mm[Hg] Dr. Danny Herrera MD Work Phone: [facility] 03-01-2025 07:56-0400 Heart rate 108 /min Dr. Danny Herrera MD Work Phone: [facility] 03-01-2025 07:56-0400 Respiratory rate 15 /min Dr. Danny Herrera MD Work Phone: [facility] 03-01-2025 07:56-0400 SaO2% (BldA) [Mass fraction] 97 % Dr. Danny Herrera MD Work Phone: [facility] 03-01-2025 07:56-0400 Systolic blood pressure 159 mm[Hg] Dr. Danny Herrera MD Work Phone: [facility] 01-13-2025 08:07-0400 Body temperature 98.4 [degF] Dr. Danny Herrera MD Work Phone: [facility] 01-13-2025 08:07-0400 Diastolic blood pressure 71 mm[Hg] Dr. Danny Herrera MD Work Phone: [facility] 01-13-2025 08:07-0400 Heart rate 101 /min Dr. Danny Herrera MD Work Phone: [facility] 01-13-2025 08:07-0400 Respiratory rate 17 /min Dr. Danny Herrera MD Work Phone: [facility] 01-13-2025 08:07-0400 SaO2% (BldA) [Mass fraction] 97 % Dr. Danny Herrera MD Work Phone: [facility] 01-13-2025 08:07-0400 Systolic blood pressure 153 mm[Hg] Dr. Danny Herrera MD Work Phone: [facility] 12-15-2024 10:20-0400 Body mass index (BMI) [Ratio] 31.5 kg/m2 Dr. Danny Herrera MD Work Phone: [facility] 12-15-2024 10:20-0400 Body temperature 98.2 [degF] Dr. Danny Herrera MD Work Phone: [facility] 12-15-2024 10:20-0400 Diastolic blood pressure 69 mm[Hg] Dr. Danny Herrera MD Work Phone: [facility] 12-15-2024 10:20-0400 Heart rate 112 /min Dr. Danny Herrera MD Work Phone: [facility] 12-15-2024 10:20-0400 Respiratory rate 18 /min Dr. Danny Herrera MD Work Phone: [facility] 12-15-2024 10:20-0400 Systolic blood pressure 155 mm[Hg] Dr. Danny Herrera MD Work Phone: [facility] 12-09-2024 00:29-0400 Body weight 75.[address] Danny Herrera MD Work Phone: [facility] 12-01-2024 10:23-0400 Body mass index (BMI) [Ratio] 31.5 kg/m2 Dr. Danny Herrera MD Work Phone: [facility] 12-01-2024 10:23-0400 Body temperature 99.3 [degF] Dr. Danny Herrera MD Work Phone: [facility] 12-01-2024 10:23-0400 Diastolic blood pressure 81 mm[Hg] Dr. Danny Herrera MD Work Phone: [facility] 12-01-2024 10:23-0400 Heart rate 106 /min Dr. Danny Herrera MD Work Phone: [facility] 12-01-2024 10:23-0400 Respiratory rate 14 /min Dr. Danny Herrera MD Work Phone: [facility] 12-01-2024 10:23-0400 Systolic blood pressure 154 mm[Hg] Dr. Danny Herrera MD Work Phone: [facility] 11-09-2024 00:21-0400 Body weight 75.[address] Danny Herrera MD Work Phone: [facility] 11-03-2024 11:16-0400 Body mass index (BMI) [Ratio] 31.5 kg/m2 Dr. Danny Herrera MD Work Phone: [facility] 11-03-2024 11:16-0400 Body temperature 97.5 [degF] Dr. Danny Herrera MD Work Phone: [facility] 11-03-2024 11:16-0400 Diastolic blood pressure 72 mm[Hg] Dr. Danny Herrera MD Work Phone: [facility] 11-03-2024 11:16-0400 Heart rate 94 /min Dr. Danny Herrera MD Work Phone: [facility] 11-03-2024 11:16-0400 Respiratory rate 18 /min Dr. Danny Herrera MD Work Phone: [facility] 11-03-2024 11:16-0400 Systolic blood pressure 134 mm[Hg] Dr. Danny Herrera MD Work Phone: [facility] 11-01-2024 08:13-0400 Body height 154.[address] Danny Herrera MD Work Phone: [facility] 11-01-2024 08:13-0400 Body mass index (BMI) [Ratio] 29.5 kg/m2 Dr. Danny Herrera MD Work Phone: [facility] 11-01-2024 08:13-0400 Body temperature 98.2 [degF] Dr. Danny Herrera MD Work Phone: [facility] 11-01-2024 08:13-0400 Body weight 70.[address] Danny Herrera MD Work Phone: [facility] 11-01-2024 08:13-0400 Diastolic blood pressure 72 mm[Hg] Dr. Danny Herrera MD Work Phone: [facility] 11-01-2024 08:13-0400 Heart rate 113 /min Dr. Danny Herrera MD Work Phone: [facility] 11-01-2024 08:13-0400 Respiratory rate 18 /min Dr. Danny Herrera MD Work Phone: [facility] 11-01-2024 08:13-0400 SaO2% (BldA) [Mass fraction] 98 % Dr. Danny Herrera MD Work Phone: [facility] 11-01-2024 08:13-0400 Systolic blood pressure 138 mm[Hg] Dr. Danny Herrera MD Work Phone: [facility] 10-09-2024 01:23-0500 Body weight 75.[address] Danny Herrera MD Work Phone: [facility] 10-06-2024 11:15-0500 Body mass index (BMI) [Ratio] 31.5 kg/m2 Dr. Danny Herrera MD Work Phone: [facility] 10-06-2024 11:15-0500 Body temperature 97.2 [degF] Dr. Danny Herrera MD Work Phone: [facility] 10-06-2024 11:15-0500 Diastolic blood pressure 79 mm[Hg] Dr. Danny Herrera MD Work Phone: [facility] 10-06-2024 11:15-0500 Heart rate 116 /min Dr. Danny Herrera MD Work Phone: [facility] 10-06-2024 11:15-0500 Respiratory rate 18 /min Dr. Danny Herrera MD Work Phone: [facility] 10-06-2024 11:15-0500 Systolic blood pressure 162 mm[Hg] Dr. Danny Herrera MD Work Phone: [facility] 10-05-2024 20:35-0500 Body temperature 97.5 [degF] Dr. Danny Herrera MD Work Phone: [facility] 10-05-2024 20:35-0500 Diastolic blood pressure 84 mm[Hg] Dr. Danny Herrera MD Work Phone: [facility] 10-05-2024 20:35-0500 Heart rate 106 /min Dr. Danny Herrera MD Work Phone: [facility] 10-05-2024 20:35-0500 Respiratory rate 15 /min Dr. Danny Herrera MD Work Phone: [facility] 10-05-2024 20:35-0500 SaO2% (BldA) [Mass fraction] 99 % Dr. Danny Herrera MD Work Phone: [facility] 10-05-2024 20:35-0500 Systolic blood pressure 168 mm[Hg] Dr. Danny Herrera MD Work Phone: [facility] 10-01-2024 15:23-0500 Body temperature 98.2 [degF] Dr. Danny Herrera MD Work Phone: [facility] 10-01-2024 15:23-0500 Diastolic blood pressure 70 mm[Hg] Dr. Danny Herrera MD Work Phone: [facility] 10-01-2024 15:23-0500 Heart rate 104 /min Dr. Danny Herrera MD Work Phone: [facility] 10-01-2024 15:23-0500 Respiratory rate 16 /min Dr. Danny Herrera MD Work Phone: [facility] 10-01-2024 15:23-0500 SaO2% (BldA) [Mass fraction] 97 % Dr. Danny Herrera MD Work Phone: [facility] 10-01-2024 15:23-0500 Systolic blood pressure 144 mm[Hg] Dr. Danny Herrera MD Work Phone: [facility] 10-01-2024 10:19-0500 Body mass index (BMI) [Ratio] 29.7 kg/m2 Dr. Danny Herrera MD Work Phone: [facility] 10-01-2024 10:19-0500 Body weight 71.[address] Danny Herrera MD Work Phone: [facility] 09-17-2024 14:11-0500 Body temperature 97.9 [degF] Dr. Danny Herrera MD Work Phone: [facility] 09-17-2024 14:11-0500 Diastolic blood pressure 70 mm[Hg] Dr. Danny Herrera MD Work Phone: [facility] 09-17-2024 14:11-0500 Heart rate 109 /min Dr. Danny Herrera MD Work Phone: [facility] 09-17-2024 14:11-0500 Respiratory rate 16 /min Dr. Danny Herrera MD Work Phone: [facility] 09-17-2024 14:11-0500 SaO2% (BldA) [Mass fraction] 99 % Dr. Danny Herrera MD Work Phone: [facility] 09-17-2024 14:11-0500 Systolic blood pressure 140 mm[Hg] Dr. Danny Herrera MD Work Phone: [facility] 09-11-2024 02:42-0500 Body weight 75.[address] Danny Herrera MD Work Phone: [facility] 09-08-2024 10:49-0500 Body mass index (BMI) [Ratio] 31.5 kg/m2 Dr. Danny Herrera MD Work Phone: [facility] 09-08-2024 10:49-0500 Diastolic blood pressure 77 mm[Hg] Dr. Danny Herrera MD Work Phone: [facility] 09-08-2024 10:49-0500 Heart rate 109 /min Dr. Danny Herrera MD Work Phone: [facility] 09-08-2024 10:49-0500 Respiratory rate 16 /min Dr. Danny Herrera MD Work Phone: [facility] 09-08-2024 10:49-0500 Systolic blood pressure 147 mm[Hg] Dr. Danny Herrera MD Work Phone: [facility] 09-01-2024 10:30-0500 Body temperature 97.2 [degF] Dr. Danny Herrera MD Work Phone: [facility] 09-01-2024 10:30-0500 Body weight 75.[address] Danny Herrera MD Work Phone: [facility] 07-22-2024 08:27-0500 Body mass index (BMI) [Ratio] 31.5 kg/m2 Dr. Danny Herrera MD Work Phone: [facility] 07-22-2024 08:27-0500 Body temperature 98.4 [degF] Dr. Danny Herrera MD Work Phone: [facility] 07-22-2024 08:27-0500 Body weight 75.[address] Danny Herrera MD Work Phone: [facility] 07-22-2024 08:27-0500 Diastolic blood pressure 84 mm[Hg] Dr. Danny Herrera MD Work Phone: [facility] 07-22-2024 08:27-0500 Heart rate 108 /min Dr. Danny Herrera MD Work Phone: [facility] 07-22-2024 08:27-0500 Respiratory rate 16 /min Dr. Danny Herrera MD Work Phone: [facility] 07-22-2024 08:27-0500 SaO2% (BldA) [Mass fraction] 97 % Dr. Danny Herrera MD Work Phone: [facility] 07-22-2024 08:27-0500 Systolic blood pressure 146 mm[Hg] Dr. Danny Herrera MD Work Phone: [facility] 11-27-2022 08:05-0400 Body height 157.[address] Danny Herrera Work Phone: [facility] 11-27-2022 08:05-0400 Body mass index (BMI) [Ratio] 30.7 kg/m2 Dr. Danny Herrera Work Phone: [facility] 11-27-2022 08:05-0400 Body temperature 97.4 [degF] Dr. Danny Herrera Work Phone: [facility] 11-27-2022 08:05-0400 Body weight 76.[address] Danny Herrera Work Phone: [facility] 11-27-2022 08:05-0400 Diastolic blood pressure 84 mm[Hg] Dr. Danny Herrera Work Phone: [facility] 11-27-2022 08:05-0400 Heart rate 107 /min Dr. Danny Herrera Work Phone: [facility] 11-27-2022 08:05-0400 Respiratory rate 18 /min Dr. Danny Herrera Work Phone: [facility] 11-27-2022 08:05-0400 SaO2% (BldA) [Mass fraction] 100 % Dr. Danny Herrera Work Phone: [facility] 11-27-2022 08:05-0400 Systolic blood pressure 148 mm[Hg] Dr. Danny Herrera Work Phone: [facility] 08-08-2021 07:16-0500 Body height 157.[address] Danny Herrera Work Phone: [facility] Work Phone: 08-08-2021 07:16-0500 Body mass index (BMI) [Ratio] 29.4 kg/m2 Dr. Danny Herrera Work Phone: [facility] Work Phone: 08-08-2021 07:16-0500 Body temperature 97.6 [degF] Dr. Danny Herrera Work Phone: [facility] Work Phone: 08-08-2021 07:16-0500 Body weight 73.[address] Danny Herrera Work Phone: [facility] Work Phone: 08-08-2021 07:16-0500 Diastolic blood pressure 74 mm[Hg] Dr. Danny Herrera Work Phone: [facility] Work Phone: 08-08-2021 07:16-0500 Heart rate 108 /min Dr. Danny Herrera Work Phone: [facility] Work Phone: 08-08-2021 07:16-0500 Respiratory rate 14 /min Dr. Danny Herrera Work Phone: [facility] Work Phone: 08-08-2021 07:16-0500 SaO2% (BldA) [Mass fraction] 99 % Dr. Danny Herrera Work Phone: [facility] Work Phone: 08-08-2021 07:16-0500 Systolic blood pressure 130 mm[Hg] Dr. Danny Herrera Work Phone: [facility] Work Phone: Encounters Encounter Date Encounter Type Care Provider Facility Start: 03-11-2025 ambulatory Danny Crespo ty:[facility] Start: 03-08-2025 End: 03-08-[address] Paresh Arellano MD -[facility] Work Phone: Start: 03-08-2025 End: 03-08-[address] Danny Herrera MD Work Phone: -[facility] Start: 03-01-2025 End: 03-01-[address] Paresh Arellano MD -[facility] Work Phone: Start: 03-01-2025 End: 03-01-[address] Danny Herrera MD Work Phone: -[facility] Start: 03-01-2025 End: 03-01-2025 ambulatory Danny Herrera Facility:[facility] Start: 02-18-2025 End: 02-18-[address] Danny Herrera MD Work Phone: -[facility] Start: 02-18-2025 End: 02-18-[address] Paresh Arellano MD -[facility] Work Phone: Start: 02-18-2025 End: 02-18-2025 ambulatory Paresh Arellano Facility:[facility] Start: 01-13-2025 End: 01-13-[address] Paresh Arellano MD -[facility] Work Phone: Start: 01-13-2025 End: 01-13-[address] Danny Herrera MD Work Phone: [facility] Work Phone: Start: 12-15-2024 End: 01-06-[address] Thompson Wright DPM -[facility] [place] Work Phone: Start: 12-15-2024 End: 01-06-[address] Danny Herrera MD Work Phone: [facility] Work Phone: Start: 12-01-2024 End: 12-08-2024 ambulatory Thompson Wright Facility:[facility] Start: 12-01-2024 End: 12-08-[address] Thompson [facility] D[facility] Work Phone: Start: 11-03-2024 End: 11-08-[address] Danny Herrera MD Work Phone: [facility] Work Phone: Start: 11-03-2024 End: 11-08-[address] Thompson Wright DPM [facility] Work Phone: Start: 11-01-2024 End: 11-01-[address] Danny Herrera MD -[facility] Work Phone: Start: 11-01-2024 End: 11-01-[address] Danny Herrera MD [facility] Start: 11-01-2024 End: 11-01-2024 ambulatory [facility] Start: 10-07-2024 ambulatory [facility] Fac[facility] ty:[facility] Start: 10-06-2024 End: 10-08-2024 ambulatory [facility] Facility:[facility] Start: 10-06-2024 End: 10-08-[address] Thompson Wright DPKirt -[facility] Work Phone: Start: 10-05-2024 End: 10-05-2024 Emergency department patient visit ED PHYSICIAN PROVIDER -Emergency Department Work Phone: Start: 10-01-2024 End: 10-01-2024 Non-patient / Non-visit Dr. Heriberto Wyatt MD -[facility] Work Phone: Start: 10-01-2024 End: 10-01-2024 Admission to same day surgery center Dr. Thompson Wright DPM -[facility] Start: 10-01-2024 End: 10-01-2024 ambulatory [facility] Facility:[facility] Start: 09-23-2024 End: 09-23-[address] Paresh Arellano MD -[facility] Work Phone: Start: 09-22-2024 End: 09-23-2024 ambulatory [facility] Facility:[facility] Start: 09-17-2024 Encounter for other preprocedural examination [facility] Start: 09-17-2024 End: 09-17-[address] Danny Herrera MD -Laboratory, [facility] Start: 09-17-2024 End: 09-17-[address] Danny Herrera MD -[facility] Work Phone: Start: 09-17-2024 End: 09-17-[address] Danny Herrera MD [facility] Start: 09-17-2024 End: 09-17-2024 ambulatory [facility] Facility[facility] Start: 09-17-2024 End: 09-17-2024 ambulatory [facility] Facility:[facility] Start: 09-10-2024 End: 09-10-[address] Thompson Wright DPM -[facility] Work Phone: Start: 09-10-2024 End: 09-10-2024 ambulatory [facility] Facility:[facility] Start: 09-08-2024 End: 09-10-2024 ambulatory [facility] Facility:[facility] Start: 09-08-2024 End: 09-10-[address] Thompson [facility] D[facility] Work Phone: Start: 07-22-2024 End: 07-22-[address] Paresh Arellano MD -[facility] Work Phone: Start: 07-22-2024 End: 07-22-2024 ambulatory [facility] Facility:[facility] Start: 06-29-2024 End: 06-29-2024 ambulatory [facility] Facility:[facility] Start: 06-21-2024 End: 06-21-2024 ambulatory [facility] Facility:[facility] Start: 06-08-2024 End: 06-08-2024 ambulatory Danny Patele Facility:[facility] Start: 05-28-2024 End: 05-28-2024 ambulatory Eforingrimeslandjorge Patele Facility:[facility] Start: 05-24-2024 ambulatory Efsloane Herrera Facili ty:[facility] Start: 05-23-2024 ambulatory Efsloane Herrera Facili ty:[facility] Start: 05-23-2024 End: 05-24-2024 Evaluation and management of inpatient Dayogrimeslandjorge Willettrach Facility:[facility] Start: 05-03-2024 End: 05-03-2024 [facility] Start: 03-24-2024 End: 03-24-2024 ambulatory [facility] Facility:[facility] Start: 10-16-2023 End: 10-16-2023 ambulatory [facility] Work Phone: Start: 10-16-2023 End: 10-16-2023 Patient encounter procedure [facility] Work Phone: Start: 11-27-2022 End: 11-27-[address] Danny Herrera Work Phone: [facility] Work Phone: Start: 11-27-2022 End: 11-27-2022 Encounter for general adult medical examination without abnormal findings Dr. Danny Herrera Work Phone: [facility] Start: 11-27-2022 End: 11-27-[address] Danny Herrera Work Phone: [facility] Start: 11-01-2022 End: 11-01-[address] Danny Herrera Work Phone: [facility] Start: 12-25-[address] Rach Herrera Work Phone: [facility] Start: 11-10-2021 End: 11-10-[address] Danny Herrera Work Phone: [facility] Start: 08-08-2021 End: 08-08-[address] Danny Herrera Work Phone: [facility] Start: 02-09-[address] Rach Herrera Work Phone: [facility] Procedures Date Procedure Procedure Detail Performing Clinician Start: 03-01-2025 Folic acid measurement, RBC Dr. Danny Herrera MD Work Phone: Comment on above: Performed at: [address] Director: Jaxon Dunham PhD, Phone: [phone] Start: 10-27-[address] Danny [...] Treatment Date Care Activity Detail Author Start: 03-01-2025 Ferritin [Mass/volum e] in Serum or Plasma [facility] Start: 03-01-2025 Folic acid measureme nt, RBC [facility] Start: 03-01-2025 Iron [Mass/mass] in Unspecified specimen [facility] Start: 03-01-2025 Vitamin B12 measurement [facility] Start: 10-01-2024 Adjt tis trns/reargm t f/c/c/m/n/a/g/h/f 10sqcm/< TIS TRNFR F/C/C/M/N/A/G/H/F [facility] Start: 10-01-2024 Anes integ extremiti es ant trunk & perineum nos ANESTH SKIN EXT/PER/ATRUNK [facility] Start: 10-01-2024 Exc b9 lesion mrgn x cp sk tg s/n/h/f/g 3.1-4.0cm EXC H-F-NK-SP B9+DEVIN 3.1-4 [facility] Start: 10-01-2024 Patient discharge [facility] Start: 09-17-2024 Evaluation of diagno stic study results [facility] Start: 08-23-2024 Patient referral [facility] Work Phone: Hematocrit [Volume Fraction] of Blood [facility] Microalbumin [Mass/v olume] in Urine [facility] Patient Education Post-Op Tips: Foot [facility] Work Phone: Patient referral [facility] Work Phone: XR Shoulder GE 2 Views [facility] Immunizations Immunization Date Immunization Notes Care Provider Fa leeann 06-21-2020 influenza, injectable,quadrivalent , preservative free, pediatric Dr. Danny Herrera Work Phone: [facility] 06-21-2020 influenza, seasonal, injectable, preservative free Dr. Danny Herrera MD Work Phone: [facility] 06-21-2020 Flucelvax Quad (PF) (flu vac qs 2020(4 yr up)CD(PF)) 60 mcg ([address] Danny Herrera Work Phone: [facility] Work Phone: Payers Date Payer Category Payer Medicare [id number] 2024 Self-pay [id number] 2023 Private Health Insurance [id number] 2014 Unknown [id number] Unknown [id number] 2.16.8 40.1.410279.3.579.2.462 Unknown [id number] 2.16.8 40.1.469930.3.579.2.462 Unknown [id number] 2.16.8 40.1.056233.3.579.2.462 Unknown [id number] 2.16.8 40.1.028655.3.579.2.462 Unknown [id number] 2.16.8 40.1.575491.3.579.2.462 Unknown [id number] 2.16.8 40.1.674015.3.579.2.462 Unknown [id number] 2.16.8 40.1.665292.3.579.2.462 Unknown [id number] 2.16.8 40.1.165025.3.579.2.462 Unknown [id number] 2.16.8 40.1.213439.3.579.2.462 Unknown [id number] 2.16.8 40.1.715471.3.579.2.462 Unknown [id number] 2.16.8 40.1.148805.3.579.2.462 Unknown [id number] 2.16.8 40.1.495286.3.579.2.462 Unknown [id number] 2.16.8 40.1.492793.3.579.2.462 Unknown [id number] 2.16.8 40.1.503179.3.579.2.462 Unknown [id number] 2.16.8 40.1.460325.3.579.2.462 Unknown [id number] 2.16.8 40.1.901013.3.579.2.462 Unknown [id number] 2.16.8 40.1.229077.3.579.2.462 Unknown [id number] 2.16.8 40.1.346709.3.579.2.462 Unknown [id number] 2.16.8 40.1.844970.3.579.2.462 Unknown [id number] 2.16.8 40.1.074063.3.579.2.462 Unknown [id number] 2.16.8 40.1.301031.3.579.2.462 Unknown [id number] 2.16.8 40.1.782038.3.579.2.462 Unknown [id number] 2.16.8 40.1.742165.3.579.2.462 Unknown [id number] 2.16.8 40.1.072678.3.579.2.462 Unknown [id number] 2.16.8 40.1.601838.3.579.2.462 Unknown [id number] 2.16.8 40.1.416918.3.579.2.462 Unknown [id number] 2.16.8 40.1.816309.3.579.2.462 Unknown [id number] 2.16.8 40.1.907733.3.579.2.462 Unknown [id number] 2.16.8 40.1.083516.3.579.2.462 Unknown [id number] 2.16.8 40.1.565001.3.579.2.462 Unknown [id number] 2.16.8 40.1.908256.3.579.2.462 Unknown [id number] 2.16.8 40.1.670267.3.579.2.462 Unknown [id number] 2.16.8 40.1.746836.3.579.2.462 Social History Date Type Detail Facility Start: 08-08-2021 End: 04-14-2023 Tobacco smoking status NHIS Unknown if ever smoked [facility] Start: 09-05-2017 None [facility] Start: 09-05-2017 Spouse/ Signif icant Other [facility] Start: 09-05-2017 Non-smoker [facility] Start: 1955 Sex Assigned At Female [facility] Start: 09-30-2024 Tobacco smoking status NHIS Never smoked tobacco (finding) [facility] Start: 11-09-2024 Sex Female (finding) [facility] Goals Date Patient Goal Desired Activity /State Mental Status Date Assessment Result Facility 10-01-2024 Cognitive function Level Of Cons ciousness Follows Commands;Drowsy [facility] Work Phone: 10-01-2024 Cognitive function Arousable To Voice/Nam e [facility] Work Phone: Clinical Notes 05-24-2024 to 12-15-2024 Note Date & Type Note Facility 12-15-2024 Progress note Note Date/Time December 15, 2024 11:11a m [facility] [address] [place] [address] Progress Note - Wound Care 12/15/24 1109 MR#: [id number] Acct: [id number] Name: MILIND BOWMAN Rep #:[id number] : 1955 69 From: Thompson GARCIA PCP: Dr. Danny Herrera MD Status:R EG RCR Location: History of Present Illness Date of Service: 12/15/24 Chief Complaint: Left foot wound History of Wound: Left heel full-thickness wound status post excisional removal of benign skin lesion with advancement flap closure. Progress of Wound: Healing stable full-thickness wound left heel Subjective Subjective Mrs. Bowman is a 69-year-old female presenting to clinic [...] Recorded Date Recorded By Document 12/15/24 10:20 [place] [id number] 12/15/24 10:26 [place] 12/15/24 10:20 - Today's Visit Information Type of service Follow-up Visit (Physician/PERINATAL DIRECTOR ) Arrival Mode Ambulatory Accompanied by Patient [...] Recorded Date Recorded By Document 12/15/24 10:20 [place] [id number] 12/15/24 10:26 [place] 12/15/24 10:20 Wound Center Nurse 1 #1 LT MED HEEL -Date of Last Picture (Recall this 12/15/24 field) -Photo Taken Yes -Epithelialization Large 67-100% -Tunneling No -Undermining/Tunneling No -Circular Undermining No -Wound Comment(s) patient healed. Lower Limb Edema Present NA ROEL - Nurse 2 - General Ulcer CM Notes Start: 12/15/24 10:20 Freq: Status: Active Protocol: Activity Type Activity Date Activity User E-sign Co-sign Detail Recorded Client Recorded Date Recorded By Document 12/15/24 10:44 [id number] 12/15/24 10:45 12/15/24 10:44 Wound Center Nurse [...] Recorded Date Recorded By Document 12/15/24 10:45 [id number] 12/15/24 10:45 JF 12/15/24 10:45 Is Patient Pain Free? Yes WC - Visit Discharge Discharge Condition Stable [...] Cosigner Signature (if applicable): CC: ~ Signed [facility] Work Phone: 1(613) 732-926105-07-[address] [facility] [address] [place] [address] Progress Note - Wound Care 12/15/24 1109 MR#: [id number] Acct: [id number] Name: MILIND BOWMAN Rep #:[id number] : 1955 69 From: Thompson GARCIA PCP: Dr. Danny Herrera MD Status:R EG RCR Location: History of Present Illness Date of Service: 12/15/24 Chief Complaint: Left foot wound History of Wound: Left heel full-thickness wound status post excisional removal of benign skin lesion with advancement flap closure. Progress of Wound: Healing stable full-thickness wound left heel Subjective Subjective Mrs. Bowman is a 69-year-old female presenting to clinic [...] Recorded Date Recorded By Document 12/15/24 10:20 [place] [id number] 12/15/24 10:26 [place] 12/15/24 10:20 - Today's Visit Information Type of service Follow-up Visit (Physician/PERINATAL DIRECTOR ) Arrival Mode Ambulatory Accompanied by Patient [...] Recorded Date Recorded By Document 12/15/24 10:20 [place] [id number] 12/15/24 10:26 [place] 12/15/24 10:20 Wound Center Nurse 1 #1 [...] Recorded Date Recorded By Document 12/15/24 10:44 [id number] 12/15/24 10:45 12/15/24 10:44 Wound Center Nurse [...] Recorded Date Recorded By Document 12/15/24 10:45 [id number] 12/15/24 10:45 12/15/24 10:45 Is Patient Pain [...] Cosigner Signature (if applicable): CC: ~ Signed [facility]04-23-2025 Evaluation note* Diagnosis Onset Date Resolution Status Admit Date Foreign body in left foot acute December 01, 2024 10:00am 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 December 01, 2024 10:00am 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 Danny Herrera MD Status:R RCR Location: History of Present Illness Date of Service: 11/03/24 Chief Complaint: Left foot wound History of Wound: Chronic foot wound Progress of Wound: Full-thickness soft tissue mass status post excision of soft tissue mass with advancement flap closure. Subjective Subjective Mrs Bowman is a six 9-year-old female presented wound [...] Date Recorded By Document 10/12/24 08:20 ML [id number] 10/12/24 08:37 ML Document 10/20/24 11:01 MT [id number] 10/20/24 11:18 MT Document 10/27/24 11:16 GM [id number] 10/27/24 11:30 GM Document 11/03/24 11:16 KW [id number] 11/03/24 11:30 KW 10/12/24 10/20/24 10/27/24 08:20 11:01 11:16 - Today's Visit Information Type of service Nurse-only Follow-up Visit Follow-up Visit Visit (Physician/PERINATAL DIRECTOR (Physician/PERINATAL DIRECTOR ) ) Arrival Mode Ambulatory, Ambulatory, Ambulatory, [...] Pain Free? No Yes Yes 11/03/24 11:16 - Today's Visit Information Type of service Follow-up Visit (Physician/PERINATAL DIRECTOR ) Arrival Mode Ambulatory, Walker Transfer Assistance [...] Recorded Date Recorded By Document 10/20/24 11:01 [place] [id number] 10/20/24 11:18 [place] Document 10/27/24 11:16 GM [id number] 10/27/24 11:30 GM Document 11/03/24 11:16 KW [id number] 11/03/24 11:30 KW 10/20/24 10/27/24 11/03/24 11:01 [...] Amt Medium (34-66%) Large (67-100%) -Granulation Quality [place] Red -Slough/Fibrin No -Necrosis Amt Small (1-33%) [...] Recorded Date Recorded By Document 10/20/24 11:36 [id number] 10/20/24 11:38 JF Document 10/27/24 11:40 JF [id number] 10/27/24 11:42 Document 11/03/24 11:41 [id number] 11/03/24 11:47 JF 10/20/24 10/27/24 11/03/24 11:36 [...] Date Recorded By Document 10/12/24 08:20 ML [id number] 10/12/24 08:37 ML Document 10/20/24 11:55 DL [id number] 10/20/24 11:57 DL Document 10/27/24 11:57 DL [id number] 10/27/24 11:59 DL Document 11/03/24 11:52 JF [id number] 11/03/24 11:53 JF 10/12/24 10/20/24 10/27/24 08:20 [...] center with Dr. Wright in 1 week. 11/03/248 <Electronically signed by Thompson Wright DPM> Cosigner Signature (if applicable): CC: ~ Signed [facility] Work Phone: 1(352) 784-925703-26-[address] [facility] [address] [place] [address] Progress Note - Wound Care 11/03/24 1415 MR#: [id number] Acct: [id number] Name: MILIND BOWMAN Rep #:[id number] : 1955 69 From: Thompson GARCIA PCP: Dr. Danny Herrera MD Status:R [facility] Location: History of Present Illness Date of Service: 11/03/24 Chief Complaint: Left foot wound History of Wound: Chronic foot wound Progress of Wound: Full-thickness soft tissue mass status post excision of soft tissue mass with advancement flap closure. Subjective Subjective Mrs Bowman is a six 9-year-old female presented wound [...] Date Recorded By Document 10/12/24 08:20 ML [id number] 10/12/24 08:37 ML Document 10/20/24 11:01 MT [id number] 10/20/24 11:18 MT Document 10/27/24 11:16 GM [id number] 10/27/24 11:30 GM Document 11/03/24 11:16 KW [id number] 11/03/24 11:30 KW 10/12/24 10/20/24 10/27/24 08:20 11:01 11:16 WC - Today's Visit Information Type of service Nurse-only Follow-up Visit Follow-up Visit Visit (Physician/PERINATAL DIRECTOR (Physician/PERINATAL DIRECTOR ) ) Arrival Mode Ambulatory, Ambulatory, Ambulatory, [...] Visit Information Type of service Follow-up Visit (Physician/PERINATAL DIRECTOR ) Arrival Mode Ambulatory, Walker Transfer Assistance [...] Date Recorded By Document 10/20/24 11:01 MT [id number] 10/20/24 11:18 [place] Document 10/27/24 11:16 [id number] 10/27/24 11:30 Document 11/03/24 11:16 KW [id number] 11/03/24 11:30 KW 10/20/24 10/27/24 11/03/24 11:01 [...] Amt Medium (34-66%) Large (67-100%) -Granulation Quality [place] Red -Slough/Fibrin No -Necrosis Amt Small (1-33%) [...] Recorded Date Recorded By Document 10/20/24 11:36 [id number] 10/20/24 11:38 Document 10/27/24 11:40 [id number] 10/27/24 11:42 Document 11/03/24 11:41 [id number] 11/03/24 11:47 10/20/24 10/27/24 11/03/24 11:36 11:40 [...] Date Recorded By Document 10/12/24 08:20 ML [id number] 10/12/24 08:37 ML Document 10/20/24 11:55 DL [id number] 10/20/24 11:57 DL Document 10/27/24 11:57 DL [id number] 10/27/24 11:59 DL Document 11/03/24 11:52 [id number] 11/03/24 11:53 10/12/24 10/20/24 10/27/24 08:20 11:55 11:57 Pain [...] Cosigner Signature (if applicable): CC: ~ Signed [facility]03-24-2025 Evaluation note* Diagnosis Onset Date Resolution Status Admit Date Health care maintenance acute [facility] 2024 8:00am Bilateral shoulder pain chronic [facility] 2024 8:00am Hypertension chronic November 01, 2024 [...] exposed chronic December 15, 2024 8: 18am Epilepsy acute January 13, 2025 7:55am [facility] Work Phone: 1(186) 207-363303-24-2025 Evaluation note* Diagnosis Onset Date Resolution Status Admit Date Health care maintenance acute [facility] 2024 8:00am Bilateral shoulder pain chronic [facility] 2024 8:00am Hypertension chronic November 01, 2024 [...] exposed chronic December 15, 2024 8: 18am Epilepsy acute January 13, 2025 7:55am Anemia acute March 01 7:54am [facility] Work Phone: [phone]) [phone] Progress note Author Thompson Wright [facility] Note Date/Time October 27, 2024 12: 42pm [facility] [address] [place] [address] Progress Note - Wound Care 10/27/24 1238 MR#: [id number] Acct: [id number] Name: MILIND BOWMAN Rep #:[id number] : 1955 69 From: Thompson Ferreira PM PCP: Dr. Danny Herrera MD Status:R EG RCR Location: History of Present Illness Date of Service: 10/27/24 Chief Complaint: Left foot wound History of Wound: Chronic foot wound Progress of Wound: Full-thickness soft tissue mass status post excision of soft tissue mass with advancement flap closure. Subjective Subjective Mrs. Bowman is a 69-year-old female presenting with concern [...] Date Recorded By Document 10/12/24 08:20 ML [id number] 10/12/24 08:37 ML Document 10/20/24 11:01 [place] [id number] 10/20/24 11:18 MT Document 10/27/24 11:16 [id number] 10/27/24 11:30 10/12/24 10/20/24 10/27/24 08:20 11:01 11:16 - Today's Visit Information Type of service Nurse-only Follow-up Visit Follow-up Visit Visit (Physician/PERINATAL DIRECTOR (Physician/PERINATAL DIRECTOR ) ) Arrival Mode Ambulatory, Ambulatory, Ambulatory, [...] Is Patient Pain Free? No Yes Yes - Nurse 1 - General Ulcer Measurement Start: 10/12/24 08:20 Freq: Status: Active Protocol: Activity Type Activity Date Activity User E-sign Co-sign Detail Recorded Client Recorded Date Recorded By Document 10/20/24 11:01 [place] [id number] 10/20/24 11:18 [place] Document 10/27/24 11:16 [id number] 10/27/24 11:30 10/20/24 10/27/24 11:01 11:16 Wound [...] Attached -Granulation Amt Medium (34-66%) -Granulation Quality [place] -Slough/Fibrin No -Necrosis Amt Small (1-33%) -Necrotic [...] Recorded Date Recorded By Document 10/20/24 11:36 [id number] 10/20/24 11:38 Document 10/27/24 11:40 [id number] 10/27/24 11:42 10/20/24 10/27/24 11:36 11:40 Wound Center Nurse 2 #1 MED HEEL -Time 11:36 11:40 -Correct Patient [...] Date Recorded By Document 10/12/24 08:20 ML [id number] 10/12/24 08:37 ML Document 10/20/24 11:55 DL [id number] 10/20/24 11:57 DL Document 10/27/24 11:57 DL [id number] 10/27/24 11:59 DL 10/12/24 10/20/24 10/27/24 08:20 [...] assistance of a walker. She can take mktx-clm-rjhbzdg Tylenol as needed for pain control. Follow-up at the wound care center with Dr. Wright in 1 week. 10/27/24 1242 <Electronically signed by Thompson Wright DPM> Cosigner Signature (if applicable): CC: ~ Signed [facility] Work Phone: 1(484) 879-435303-19-[address] [facility] [address] [place] [address] Progress Note - Wound Care 10/27/24 1238 MR#: [id number] Acct: [id number] Name: MILIND BOWMAN Rep #:[id number] : 1955 69 From: Thompson Ferreira PM PCP: Dr. Danny Herrera MD Status:R EG RCR Location: History of Present Illness Date of Service: 10/27/24 Chief Complaint: Left foot wound History of Wound: Chronic foot wound Progress of Wound: Full-thickness soft tissue mass status post excision of soft tissue mass with advancement flap closure. Subjective Subjective Mrs. Bowman is a 69-year-old female presenting with concern [...] Start: 10/12/24 08:20 Freq: Status: Active Protocol: ROEL.EDWINEXT Activity Type Activity Date Activity User E-sign Co-sign Detail Recorded Client Recorded Date Recorded By Document 10/12/24 08:20 ML [id number] 10/12/24 08:37 ML Document 10/20/24 11:01 MT [id number] 10/20/24 11:18 MT Document 10/27/24 11:16 GM [id number] 10/27/24 11:30 GM 10/12/24 10/20/24 10/27/24 08:20 11:01 11:16 - Today's Visit Information Type of service Nurse-only Follow-up Visit Follow-up Visit Visit (Physician/PERINATAL DIRECTOR (Physician/PERINATAL DIRECTOR ) ) Arrival Mode Ambulatory, Ambulatory, Ambulatory, [...] Is Patient Pain Free? No Yes Yes - Nurse 1 - General Ulcer Measurement Start: 10/12/24 08:20 Freq: Status: Active Protocol: Activity Type Activity Date Activity User E-sign Co-sign Detail Recorded Client Recorded Date Recorded By Document 10/20/24 11:01 [place] [id number] 10/20/24 11:18 MT Document 10/27/24 11:16 [id number] 10/27/24 11:30 10/20/24 10/27/24 11:01 11:16 Wound [...] Attached -Granulation Amt Medium (34-66%) -Granulation Quality [place] -Slough/Fibrin No -Necrosis Amt Small (1-33%) -Necrotic [...] Recorded Date Recorded By Document 10/20/24 11:36 [id number] 10/20/24 11:38 Document 10/27/24 11:40 [id number] 10/27/24 11:42 10/20/24 10/27/24 11:36 11:40 Wound Center Nurse [...] Date Recorded By Document 10/12/24 08:20 ML [id number] 10/12/24 08:37 ML Document 10/20/24 11:55 DL [id number] 10/20/24 11:57 DL Document 10/27/24 11:57 DL [id number] 10/27/24 11:59 DL 10/12/24 10/20/24 10/27/24 08:20 [...] strips applied today applied per Dr. milagro Barnes. Kyle. LLE -Compression Wrap Brad Wrap Treatment Response [...] with assistanceof a walker. She can take pqty-cbm-vbxtcbb Tylenol as needed for pain control. Follow-up at the wound care center with Dr. Wright in 1 week. 10/27/24 1242 Cosigner Signature (if applicable): CC: ~ Signed [facility]03-12-2025 Progress note Author Thompson Wright [facility] Note Date/Time October 20, 2024 1:1 4pm [facility] [address] [place] [address] Progress Note - Wound Care 10/20/24 1312 MR#: [id number] Acct: [id number] Name: MILIND BOWMAN Rep #:[id number] : 1955 69 From: Thompson Wright D PM PCP: Dr. Danny Herrera MD Status:R RCR Location: History of Present Illness Date of Service: 10/06/24 Chief Complaint: Left foot wound History of Wound: Chronic foot wound Progress of Wound: Full-thickness soft tissue mass status post excision of soft tissue mass with advancement flap closure. Subjective Subjective Mrs Bowman is a 69-year-old female who is status [...] Date Recorded By Document 10/12/24 08:20 ML [id number] 10/12/24 08:37 ML Document 10/20/24 11:01 MT [id number] 10/20/24 11:18 MT 10/12/24 10/20/24 08:20 11:01 WC - Today's Visit Information Type of service Nurse-only Follow-up Visit Visit (Physician/PERINATAL DIRECTOR ) Arrival Mode Ambulatory, Ambulatory, Walker Walker [...] Numeric Is Patient Pain Free? No Yes ROEL Kumar Nurse 1 - General Ulcer Measurement Start: 10/12/24 08:20 Freq: Status: Active Protocol: Activity Type Activity Date Activity User E-sign Co-sign Detail Recorded Client Recorded Date Recorded By Document 10/20/24 11:01 [place] [id number] 10/20/24 11:18 [place] 10/20/24 11:01 Wound Center Nurse 1 #1 [...] Recorded Date Recorded By Document 10/20/24 11:36 [id number] 10/20/24 11:38 10/20/24 11:36 Wound Center Nurse [...] Date Recorded By Document 10/12/24 08:20 ML [id number] 10/12/24 08:37 ML Document 10/20/24 11:55 DL [id number] 10/20/24 11:57 DL 10/12/24 10/20/24 08:20 11:55 [...] assistance of a walker. She can take csxq-ssk-gbbzynd Tylenol as needed for pain control. Follow-up at the wound care center with Dr. Wright in 1 week. 10/20/24 1314 <Electronically signed by Thompson Wright DPM> Cosigner Signature (if applicable): CC: ~ Signed [facility] Work Phone: 1(682) 159-977903-12-[address] [facility] [address] [place] [address] Progress Note - Wound Care 10/20/24 1312 MR#: [id number] Acct: [id number] Name: MILIND BOWMAN Rep #:[id number] : 1955 69 From: Thompson Ferreira PM PCP: Dr. Danny Herrera MD Status:R EG RCR Location: History of Present Illness Date of Service: 10/06/24 Chief Complaint: Left foot wound History of Wound: Chronic foot wound Progress of Wound: Full-thickness soft tissue mass status post excision of soft tissue mass with advancement flap closure. Subjective Subjective Mrs Bowman is a 69-year-old female who is status [...] Start: 10/12/24 08:20 Freq: Status: Active Protocol: .AYUSH Activity Type Activity Date Activity User E-sign Co-sign Detail Recorded Client Recorded Date Recorded By Document 10/12/24 08:20 ML [id number] 10/12/24 08:37 ML Document 10/20/24 11:01 [place] [id number] 10/20/24 11:18 [place] 10/12/24 10/20/24 08:20 11:01 - Today's Visit Information Type of service Nurse-only Follow-up Visit Visit (Physician/PERINATAL DIRECTOR ) Arrival Mode Ambulatory, Ambulatory, Walker Walker [...] Recorded Date Recorded By Document 10/20/24 11:01 [place] [id number] 10/20/24 11:18 [place] 10/20/24 11:01 Wound Center Nurse 1 #1 [...] Recorded Date Recorded By Document 10/20/24 11:36 [id number] 10/20/24 11:38 MATTHEW 10/20/24 11:36 Wound Center [...] Date Recorded By Document 10/12/24 08:20 ML [id number] 10/12/24 08:37 ML Document 10/20/24 11:55 DL [id number] 10/20/24 11:57 DL 10/12/24 10/20/24 08:20 11:55 [...] was flushed with copious also normal saline. Pwwq-hrfpFodwi-Fljxof were used to reeducate the flap closure incision line. Betadine paint was applied to the Steri-Strips followed by Betadine soaked gauzedry sterile dressing light compression wrap. Patient can be weightbearing as tolerated in surgical shoe with preferred toe- touch with assistanceof a walker. She can take igei-sbl-urtomjh Tylenol as needed for pain control. Follow-up at the wound care center with Dr. Wright in 1 week. 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 October 01 025 9:45am 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 October 06 025 11:00am Left foot soft tissue tumor resolved October 06, 2024 11:00am Health care maintenance acute arch 2024 8:00am Bilateral shoulder pain chronic 2024 [...] exposed chronic December 15, 2024 8: 18am [facility] Work Phone: 1(826) 327-627701-29-2025 Evaluation note* Diagnosis Onset Date Resolution Status [...] chronic September 1:57pm Rheumatoid arthritis chronic Febr uary 2024 1:57pm Type 2 diabetes mellitus chronic September 17, 2024 1:57pm Neoplasm of unspecified behavior of bone, soft tissue, and skin acute October 01, 025 9:45am 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 October 01, 025 9:45am Non-pressure chronic ulcer o f left [...] exposed chronic December 15, 2024 8: 18am [facility] Work Phone: 1(525) 223-156212-12-2024 Evaluation note* Diagnosis Onset Date Resolution Status [...] chronic September 1:57pm Rheumatoid arthritis chronic Febr uary 2024 1:57pm Type 2 diabetes mellitus chronic September 17, 2024 1:57pm Neoplasm of unspecified behavior of bone, soft tissue, and skin acute October 01, 025 9:45am 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 October 01, 025 9:45am 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 October 06, 11:00am Left foot soft tissue tumor resolved October 06, 2024 11:00am Health care maintenance acute M 2024 8:00am Bilateral shoulder pain chronic M 2024 8:00am Hypertension chronic November 01, 2024 8:00am Psoriatic arthritis chronic November 01, 2024 8:00am Type 2 diabetes mellitus chronic November 01, 2024 8:00am Left foot soft tissue tumor resolved November 01, 2024 8:00am 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 November 03, 2024 11:00am [facility] Work Phone: 1([phone]) 753-285010-14-2024 [facility] Diagnosis Onset Date Resolution Status Acute pain of both ears acut e Hypertension chronic Tachycardia chronic [facility] Work Phone: Evaluation note* Diagnosis Onset Date Resolution Status Preventative health care acu te Elevated glucose noneactive [facility] Work Phone: Evaluation noteNo assessment information available [facility] Work Phone: Reason for referral (narrative)No reason for referral information [facility]WKing[facility] [place] Work Phone: Summary Purpose Family History No Family History Records Found Relationship Condition Age at Onset Recorded Date/T osiris father Myocardial infarction Unknown Advance Directives No Advanced Directives Records Found Advance Directive Response Recorded Date/ Time Advance Directives No June 11:03am Living Will No June 21 11:03am Power of Handtools Repairer No June 21, 2020 11:03am Advance Directive Response Recorded Date/ Time Advance Directives No June 10:02am Living Will No July 04 10:02am Power of Handtools Repairer No July 04, 2020 10:02am Advance Directive Response Recorded Date/ Time Living Will No July 04 10:02am Do you have a Healthcare Power of Handtools Repairer? No July 04, 2020 10:02am Living Will No May 23 8:56am Do you have a Healthcare Power of Handtools Repairer? Yes May 23, 2024 8:56am Living Will No September 30 9:27am Do you have a Healthcare Power of Handtools Repairer? No September 30, 2024 9:27am Advance Directives No June 10:02am Advance Directive Response Recorded Date/ Time Living Will No July 04 10:02am Do you have a Healthcare Power of Handtools Repairer? No July 04, 2020 10:02am Living Will No September 30 9:27am Do you have a Healthcare Power of Handtools Repairer? No September 30, 2024 9:27am Advance Directives No June 10:02am Advance Directive Response Recorded Date/ Time Living Will No July 04 10:02am Do you have a Healthcare Power of Handtools Repairer? No July 04, 2020 10:02am Advance Directives No June 10:02am Advance Directive Response Recorded Date/ Time Advance Directives No June 10:02am Chief Complaint and Reason for Visit Chief Complaint 2 M FU PAIN- COPY PCP Reason for Visit Acute pain of both e ars Hypertension Tachycardia Chief Complaint PAIN- COPY PCP preventative Reason for Visit Preventative health care Elevated glucose Chief Complaint EORDER JOCELYNE AND DAYSI TSANGI- PAIN- COPY PCP Chief Complaint Admit Date [...] 2024 1:57pm Type 2 diabetes mellitus September 17, 025 1:57pm Neoplasm of unspecified beha vior of [...] 2024 1:57pm Type 2 diabetes mellitus September 17, 1:57pm Neoplasm of unspecified beha vior of [...] 2024 1:57pm Type 2 diabetes mellitus September 17, 025 1:57pm Neoplasm of unspecified beha vior of [...] 15, 2024 8:18am Chief Complaint Admit Date 6 M FU November 01, 2024 8:0 0am wound November 03, 2024 11: 00am wound December 01, 2024 10: 00am wound December 15, 2024 8:18am 6 M FU January 13, 2025 7:55a m EORDER February 18, 2025 7:18 am Reason for Visit Admit Date Health care maintenance November 01, 2024 8:00am [...] fat layer exposed December 15, 2024 8:18am Epilepsy January 13, 2025 7:55a m Chief Complaint Admit Date 6 M FU November 01, 2024 8:0 0am wound November 03, 2024 11: 00am wound December 01, 2024 10: 00am wound December 15, 2024 8:18am 6 M FU January 13, 2025 7:55a m EORDER February 18, 2025 7:18 am 6 wks March 01, 2025 7:54 am EORDERS March 01, 2025 8:41 am Reason for Visit Admit Date Health care maintenance November 01, 2024 8:00am [...] fat layer exposed December 15, 2024 8:18am Epilepsy January 13, 2025 7:55a m Anemia March 01, 2025 7:54 am Chief Complaint Admit Date wound December 01, 2024 10: 00am wound December 15, 2024 8:18am 6 M FU January 13, 2025 7:55a m EORDER February 18, 2025 7:18 am 6 wks March 01, 2025 7:54 am EORDERS March 01, 2025 8:41 am Reason for Visit Admit Date Foreign body in left foot December 01 10:00am 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 December 01, 2024 10:00am 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 December 15, 2024 8:18am Epilepsy January 13, 2025 7:55a m Anemia March 01, 2025 7:54 am Epilepsy March 01, 2025 7:54 am Musculoskeletal pain March 01, 2025 7:5 4am Chief Complaint Admit Date wound December 01, 2024 10: 00am wound December 15, 2024 8:18am 6 M FU January 13, 2025 7:55a m EORDER February 18, 2025 7:18 am 6 wks March 01, 2025 7:54 am EORDERS March 01, 2025 8:41 am B12 inject March 08, 2025 2:23 pm Additional Source Comments INFORMATION SOURCE (unrecogn ized section and content) DATE CREATED AUTHOR 05/26/2018 [facility] DATE CREATED AUTHOR AUTHOR'S ORGANIZ ATION 03/18/2025 [facility] Goals (unrecognized section and content) Goals may [...] Provider, Refer ring Provider Active Nazario Ha WASTE EXAMINER, WASTE EXAMINER-C Attending Provider Active Team Status: Inactive Member Role Status Dates Dr. Danny Herrera MD Primary Care Provider Active Dr. Leeanna Johnson MD Attending Provider, Referring Provider Active Team Status: Inactive Member Role Status Dates Dr. Danny Herrera MD Primary Care Provider Active Nazario Ha WASTE EXAMINER, WASTE EXAMINER-C Attending Provider, Referring Prov ider Active Team Status: Inactive Member Role Status Dates Dr. Danny Herrera MD Primary Care P roalondrader, Attending Provider, Referring Provider Active Dr. Leeanna [...] January 13, 2025 End: January 13, 2025 Team Status: Active Member Role/Relationship Status Dates Dr. Danny Herrera MD Primary Care Provider Active Team Status: Inactive Member Role/Relationship Status Dates Dr. Danny Herrera MD Primary Care Provider Active Start: November 01, 2024 End: November 01, 2024 Dr. Danny Herrera MD Attending Provider Active Start: November 01, 2024 End: November 01, 2024 Dr. Danny Herrera MD Referring Provider Active Start: November 01, 2024 End: November 01, 2024 Team Status: Inactive Member Role/Relationship Status Dates Dr. Danny Herrera MD Primary Care Provider Active Start: November 03, 2024 End: November 08, 2024 Dr. Thompson Wright DPM Attending Provider Active Start: November 03, 2024 End: November 08, 2024 Dr. Paresh Arellano MD Referring Provider Active Start: November 03, 2024 End: November 08, 2024 Team Status: Inactive Member Role/Relationship Status Dates Dr. Danny Herrera MD Primary Care Provider Active Start: December 01, 2024 End: December 08, 2024 Dr. Thompson Wright DPM Attending Provider Active Start: December 01, 2024 End: December 08, 2024 Dr. Paresh Arellano MD Referring Provider Active Start: December 01, 2024 End: December 08, 2024 Team Status: Inactive Member Role/Relationship Status Dates Dr. Danny Herrera MD Primary Care Provider Active Start: December 15, 2024 End: January 06, 2025 Dr. Thompson Wright DPM Attending Provider Active Start: December 15, 2024 End: January 06, 2025 Dr. Paresh Arellano MD Referring Provider Active Start: December 15, 2024 End: January 06, 2025 Team Status: Inactive Member Role/Relationship Status Dates Dr. Danny Herrera MD Primary Care Provider Active Start: January 13, 2025 End: January 13, 2025 Dr. Danny Herrera MD Referring Provider Active Start: January 13, 2025 End: January 13, 2025 Dr. Paresh Arellano MD Attending Provider Active Start: January 13, 2025 End: January 13, 2025 Team Status: Inactive Member Role/Relationship Status Dates Dr. Danny Herrera MD Primary Care Provider Active Start: February 18, 2025 End: February 18, 2025 Dr. Paresh Arellano MD Attending Provider Active Start: February 18, 2025 End: February 18, 2025 Dr. Paresh Arellano MD Referring Provider Active Start: February 18, 2025 End: February 18, 2025 Team Status: Inactive Member Role/Relationship Status Dates Dr. Danny Herrera MD Primary Care Provider Active Start: March 01, 2025 End: March 01, 2025 Dr. Danny Herrera MD Referring Provider Active Start: March 01, 2025 End: March 01, 2025 Dr. Paresh Arellano MD Attending Provider Active Start: March 01, 2025 End: March 01, 2025 Team Status: Active Member Role/Relationship Status Dates Dr. Danny Herrera MD Primary Care Provider Active Start: March 01, 2025 Dr. Paresh Arellano MD Attending Provider Active Start: March 01, 2025 Dr. Paresh Arellano MD Referring Provider Active Start: March 01, 2025 Team Status: Inactive Member Role/Relationship Status Dates Dr. Danny Herrera MD Primary Care Provider Active Start: December 01, 2024 End: December 08, 2024 Dr. Thompson Wright DPM Attending Provider Active Start: December 01, 2024 End: December 08, 2024 Dr. Paresh Arellano MD Referring Provider Active Start: December 01, 2024 End: December 08, 2024 Team Status: Inactive Member Role/Relationship Status Dates Dr. Danny Herrera MD Primary Care Provider Active Start: December 15, 2024 End: January 06, 2025 Dr. Thompson Wright DPM Attending Provider Active Start: December 15, 2024 End: January 06, 2025 Dr. Paresh Arellano MD Referring Provider Active Start: December 15, 2024 End: January 06, 2025 Team Status: Inactive Member Role/Relationship Status Dates Dr. Danny Herrera MD Primary Care Provider Active Start: January 13, 2025 End: January 13, 2025 Dr. Danny Herrera MD Referring Provider Active Start: January 13, 2025 End: January 13, 2025 Dr. Paresh Arellano MD Attending Provider Active Start: January 13, 2025 End: January 13, 2025 Team Status: Inactive Member Role/Relationship Status Dates Dr. Danny Herrera MD Primary Care Provider Active Start: February 18, 2025 End: February 18, 2025 Dr. Paresh Arellano MD Attending Provider Active Start: February 18, 2025 End: February 18, 2025 Dr. Paresh Arellano MD Referring Provider Active Start: February 18, 2025 End: February 18, 2025 Team Status: Inactive Member Role/Relationship Status Dates Dr. Danny Herrera MD Primary Care Provider Active Start: March 01, 2025 End: March 01, 2025 Dr. Danny Herrera MD Referring Provider Active Start: March 01, 2025 End: March 01, 2025 Dr. Paresh Arellano MD Attending Provider Active Start: March 01, 2025 End: March 01, 2025 Team Status: Inactive Member Role/Relationship Status Dates Dr. Danny Herrera MD Primary Care Provider Active Start: March 01, 2025 End: March 01, 2025 Dr. Paresh Arellano MD Attending Provider Active Start: March 01, 2025 End: March 01, 2025 Dr. Paresh Arellano MD Referring Provider Active Start: March 01, 2025 End: March 01, 2025 Team Status: Inactive Member Role/Relationship Status Dates Dr. Danny Herrera MD Primary Care Provider Active Start: March 08, 2025 End: March 08, 2025 Dr. Danny Herrera MD Referring Provider Active Start: March 08, 2025 End: March 08, 2025 Dr. Paresh Arellano MD Attending Provider Active Start: March 08, 2025 End: March 08, 2025 FOR RECORDS PERTAINING TO PATIENTS WHO [...] BE BASED ON THE PRIMARY CLINICAL RECORDS. [facility] [employer] [facility]. provides no warranty or guarantee of the accuracy or completeness of information in this document.
[2025-03-25 10:55] LABS: Hematocrit 33.3 % (37-47); Hemoglobin 9.9 g/dL (12.0-15.0); Immature Granulocytes Count 0.040 X10^3/uL (0.0-0.0); Mean Corp Hgb Conc 29.7 g/dL (32-36); Mean Corpuscular Volume 83.7 fL (81-99); Mean Platelet Vol. 10.5 fl (6.2-12.0); NRBC Flagged by Analyzer 0 % (0-5); Platelet Count 427 K/mm3 (150-450); RBC Distribution Width CV 16.0 % (11.6-14.6); RBC Distribution Width SD 48.2 fl (35.1-43.9); Red Blood Count 3.98 M/mm3 (4.2-5.4); White Blood Count 10.8 K/mm3 (4.4-11.0)
[2025-03-25 10:56] LABS: AST(SGOT) 13 U/L (<=31); Alanine Aminotransfer ALT/SGPT 8 U/L (<=34); Albumin, Serum 3.6 g/dL (3.4-4.8); Alkaline Phosphatase 94 U/L (35-104); Anion Gap 15 (5-15); BUN 26 mg/dL (4-19); BUN/Creat Ratio 33.5 RATIO (10-20); CRP 74.70 mg/L (0.0-3.0); Calcium,Total 9.8 mg/dL (7.6-11.0); Carbon Dioxide 18.0 mmol/L (21.0-32.0); Chloride 106 mmol/L (98-108); Globulin 4.1 g/dL (2.2-4.2); Glucose 260 mg/dL (70-99); Potassium 4.3 mmol/L (3.3-5.1)
== END | disposition home or self-care (01) ==
LOC: MTLAB 07:27
PROVIDERS: PCP Internal Medicine; Referring Provider Internal Medicine Rheumatology; Visit Provider Internal Medicine Rheumatology
DX: L40.59 Other psoriatic arthropathy (principal); L40.8 Other psoriasis; M16.0 Bilateral primary osteoarthritis of hip; Z79.899 Other long term (current) drug therapy
CPT/HCPCS: 36415; 80053; 85025; 85652; 86140

== ENCOUNTER → 2025-06-21 | Outpatient (CLI) | payer OTHER, SELFPAY ==
--- OUTSIDE RECORDS SUMMARY | 2025-06-21 12:42 | XMS RPT_ITS | CCD ---
Author Organization [facility] Care Team Providers Care Manager Program Name Role Phone Dr. Danny Herrera Primary Care Provider [phone] Javier, Dr. Delgado Attending Provider [phone] Dr. Danny Herrera Referring Provider [phone] Javier, Dr. Delgado Primary Care Provider [phone] Javier, Dr. Delgado Referring Provider [phone] Dilcia DUMONT, CHAIM Lange Attending Provider [phone] Javier HEREDIA, Dr. Delgado Primary Care Provider Javier HEREDIA, Dr. Delgado Referring Provider [phone] Dr. Paresh Arellano MD Attending Provider Kyle MARSHALL, Dr. Mackay Attending Provider Dr. Paresh Arellano MD Referring Provider Kyle ROBLESM, Dr. Mackay Referring Provider Javier HEREDIA, Dr. Delgado Attending Provider [phone] Dr. Heriberto Wyatt MD Attending Provider Provider, Ed Physician Attending Provider Frank bronson Provider, Ed Physician Emergency Provider Frank Herrera MD, Dr. Delgado Primary Care Provider Javier HEREDIA, Dr. Delgado Referring Provider [phone] Dr. Paresh Arellano MD Attending Provider [phone] Javier HEREDIA, Dr. Delgado Primary Care Provider Adan HEREDIA, Dr. Yoder Referring Provider [phone] Wright DPM, Dr. Mackay Attending Provider Wright DPM, Dr. Mackay Referring Provider Javier HEREDIA, Dr. Delgado Primary Care Provider Javier HEREDIA, Dr. Delgado Attending Provider Javier HEREDIA, Dr. Delgado Referring Provider Wright DPM, Dr. Mackay Attending Provider Adan HEREDIA, Dr. Yoder Referring Provider Adan HEREDIA, Dr. Yoder Attending Provider Javier HEREDIA, Dr. Delgado Primary Care Provider Wright DPM, Dr. Mackay Attending Provider Adan HEREDIA, Dr. Yoder Referring Provider [phone] Javier HEREDIA, Dr. Delgado Referring Provider Alex HEREDIA, Dr. Durán Attending Provider Alex HEREDIA, Dr. Durán Referring Provider Javier HEREDIA, Dr. Delgado Primary Care Provider Wright DPM, Dr. Mackay Attending Provider Adan HEREDIA, Dr. Yoder Referring Provider Oleghe, Efewongbe Primary Care Unavailable Provider, Ed Physician Attending Unavailab le Oleghe, Efewongbe Primary Care Unavailable Thompson Wright Attending Unavailable Paresh Arellano Referring Unavailable Oleghe, Efewongbe Primary Care Unavailable Thompson Wright Attending Unavailable Paresh Arellano Referring Unavailable Oleghe, Efewongbe Primary Care Unavailable aPresh Arellano Attending Unavailable Paresh Arellano Referring Unavailable Oleghe, Efewongbe Primary Care Unavailable Thompson Wright Attending Unavailable Oleghe, Efewongbe Primary Care Unavailable Tali Alvarado Consulting Unavailable Jaqui Carey Admitting Unavailable Timur, Conchita Ha Attending Unavailable Nina Murguia Consulting Unavailable Cynthia Prince [...] Consulting Unavailable Oleghe, Efewongbe Primary Care Unavailable Kyle Thompson Referring Unavailable Thompson Wright Attending Unavailable Oleghe, Efewongbe Primary Care Unavailable Paresh Arellano Attending Unavailable Paresh Arellano Referring Unavailable Paresh Arellano Attending Unavailable Oleghe, Efewongbe Primary Care Unavailable Adan Paresh Referring Unavailable Vellanki, Leeanna Attending Unavailable Vellanki, Leeanna Referring Unavailable Oleghe, Efewongbe Primary Care Unavailable Vellanki, Leeanna Attending Unavailable Vellanki, Leeanna Referring Unavailable Oleghe, Efewongbe Primary Care Unavailable Oleghe, Efewongbe Primary Care Unavailable Vellanki, Leeanna Attending Unavailable Vellanki, Leeanna Referring Unavailable Oleghe, Efewongbe Primary Care Unavailable Oleghe, Efewongbe Consulting Unavailable Paresh Arellano Attending Unavailable Adan Paresh Referring Unavailable Oleghe, Efewongbe Primary Care Unavailable Oleghe, Efewongbe Attending Unavailable Oleghe, Efewongbe Referring Unavailable Oleghe, Efewongbe Primary Care Unavailable Oleghe, Efewongbe Referring Unavailable Yolanda Nuno Attending Unavailable Oleghe, Efewongbe Primary Care Unavailable Wright, Thompson Referring Unavailable Wright, Thompson Attending Unavailable Oleghe, Efewongbe Primary Care Unavailable Kyle Thompson Attending Unavailable Adamarisdour Paresh Referring Unavailable Oleghe, Efewongbe Primary Care Unavailable Oleghe, Efewongbe Referring Unavailable Oleghe, Efewongbe Attending Unavailable Oleghe, Efewongbe Primary Care Unavailable Kyle, Thompson Attending Unavailable Adan Paresh Referring Unavailable Oleghe, Efewongbe Primary Care Unavailable Tali Alvarado Consulting Unavailable Jaqui Carey Admitting Unavailable Jaqui Carey Attending Unavailable Nina Murguia Consulting Unavailable Cynthia Prince [...] Zapata Consulting Unavailable Jaqui Carey Consulting Unavailable Oleghe, Efewongbe Primary Care Unavailable Kyle, Thompson Attending Unavailable Adan, Paresh Referring Unavailable Oleghe, Efewongbe Primary Care Unavailable Rufino Velez Attending Unavailable Oleghe, Efewongbe Primary Care Unavailable Wright, Thompson Referring Unavailable Heriberto Wyatt Attending Unavailable Conchita Ding Attending Unavailable Conchita Ding Consulting Unavailable Nazario Cook Consulting Unavailable Oleghe, Efewongbe Referring Unavailable Paresh Arellano Attending Unavailable Oleghe, Efewongbe Primary Care Unavailable Oleghe, Efewongbe Primary Care Unavailable Oleghe, Efewongbe Referring Unavailable Paresh Arellano Attending Unavailable Oleghe, Efewongbe Primary Care Unavailable Oleghe, Efewongbe Referring Unavailable Oleghe, Efewongbe Attending Unavailable Oleghe, Efewongbe Attending Unavailable Oleghe, Efewongbe Primary Care Unavailable Oleghe, Efewongbe Referring Unavailable Oleghe, Efewongbe Primary Care Unavailable Oleghe, Efewongbe Referring Unavailable Baddour, Paresh Attending Unavailable Baddour, Paresh Attending Unavailable Oleghe, Efewongbe Primary Care Unavailable Baddour, Paresh Referring Unavailable Oleghe, Efewongbe Primary Care Unavailable Baddour, Paresh Attending Unavailable Baddour, Paresh Referring Unavailable Oleghe, Efewongbe Primary Care Unavailable Oleghe, Efewongbe Referring Unavailable Baddour, Paresh Attending Unavailable Oleghe, Efewongbe Primary Care Unavailable Vellanki, Leeanna Attending Unavailable Vellanki, Leeanna Referring Unavailable Oleghe, Efewongbe Primary Care Unavailable Oleghe, Efewongbe Referring Unavailable Oleghe, Efewongbe Attending Unavailable Allergies Allergy Classification Reported Allergen(s) Allergy Type Date of Onset Reaction(s) Facility (14 sources) adalimumab Drug Allergy 08-08-2021 unknown [facility] (14 sources) apremilast Drug Allergy 08-08-2021 unknown [facility] (14 sources) inFLIXimab Drug Allergy 08-08-2021 unknown [facility] (14 sources) inFLIXimab Drug Allergy 08-08-2021 [facility] (14 sources) leflunomide Drug Allergy 08-08-2021 [facility] Comment on above: LIVER ENZYMES ELEVAT ED (14 sources) Methotrexate Drug Allergy 08-08-2021 [facility] Comment on above: INCREASED LIVER ENZY MES (14 sources) sulfaSALAzine Drug Allergy 08-08-2021 [facility] Comment on above: ELEVATED LIVER ENZYM ES (14 sources) traMADol Drug Allergy 08-08-2021 seizures [facility] (1 source) adalimumab Drug Allergy 03-01-2025 [facility] Repository (1 source) apremilast Drug Allergy 03-01-2025 [facility] Repository (1 source) inFLIXimab Drug Allergy 03-01-2025 [facility] Rep[facility] (1 source) leflunomide Drug Allergy 03-01-2025 [facility] (1 source) Methotrexate Drug Allergy 03-01-2025 [facility] (1 source) sulfaSALAzine Drug Allergy 03-01-2025 [facility] (1 source) traMADol Drug Allergy 03-01-2025 [facility] (1 source) infliximab-dyyb Drug allergy (disorder) 03-01-2025 [facility] Rep[facility] Medications Current Medications Medication Drug Class(es) Dates Sig (Normalized) Sig (Original) 8 hr acetaminophen 650 mg extended release oral tablet (20 sources) Start: 10-01-2024 take 1 tablet by [...] 2017 1:00am ciprofloxacin 750 mg oral tablet (11 sources) Quinolone Antimicrobial Start: 11-03-2024 take 1 tablet by mouth twice daily Ciprofloxacin Hcl 750 mg tablet Active 750 mg PO TWICE A DAY 28 14 0 November 03, 2024 12:00am Diclofenac (7 sources) Nonsteroidal Anti-inflammatory Drug Start: 03-01-2025 apply 4 g topically four times daily as needed for pain Diclofenac Sodium 1 % gel Active 4 g TOPICAL .QID as needed for Neck pain/stiffness 100 7 March 01, 2025 12:00am doxycycline hyclate 100 mg oral capsule (11 sources) Tetracycline-class Drug Start: 11-03-2024 take 1 capsule by mouth twice daily Doxycycline Hyclate 100 mg capsule Active 100 mg PO TWICE A DAY 28 14 0 November 03, 2024 12:00am ferrous sulfate 325 mg oral tablet (20 sources) Start: 03-01-2025 take 1 tablet by [...] 2023 8:14am gentamicin 0.001 mg/mg topical ointment (11 sources) Start: 11-03-2024 Gentamicin 0.1 % ointment Active 1 NMA TOPICAL DAILY 15 14 0 November 03, 2024 12:00am Apply to the full-thickness ulceration to the left heel daily, cover with dry sterile dressing and Cain wrap. predniSONE 5 mg oral tablet (20 sources) Start: 09-30-2024 End: 03-03-2025 take 1 tablet by mouth once daily Prednisone 5 mg tablet Active 5 mg PO DAILY 10 March 03, 2025 2:33pm Start: 04-14-2023 End: 10-29-2023 take 3 tablets by mouth once daily Prednisone 20 mg tablet Discontinued 60 mg PO DAILY 9 April 14, 2023 12:00am October 29, 2023 [...] Drug Class(es) Dates Sig (Normalized) Sig (Original) [id number] 200 actuat albuterol 0.09 mg/actuat metered dose inhaler (12 sources) beta2-Adrenergic Agonist Start: 04-14-2023 End: 10-29-2023 [...] 2023 12:00am amoxicillin 500 mg oral capsule (12 sources) Penicillin-class Antibacterial Start: 04-14-2023 End: 10-29-2023 take 1 capsule by mouth three times daily Amoxicillin 500 mg capsule Discontinued 500 mg PO THREE TIMES A DAY 21 0 April 14, 2023 12:00am October 29, 2023 8:14am Bronchitis Bronchitis, not specified as acute or chronic amoxicillin 875 mg / clavulanate 125 mg oral tablet (20 sources) Penicillin-class Antibacterial Start: 10-06-2024 End: 11-01-2024 Amoxicillin-Pot Clavulanate 875-125 mg tablet Discontinued 1 {tbl} PO TWICE A DAY 28 14 0 October 06, 2024 1:00am November 01, 2024 8:12am Start: 05-24-2024 End: 06-08-2024 Amoxicillin-Pot Clavulanate 875-125 mg tablet Discontinued 1 {tbl} PO TWICE A DAY 14 0 May 24, 2024 12:00am June 08, 2024 10:08am atorvastatin 40 mg oral tablet (11 sources) HMG-CoA Reductase Inhibitor Start: 05-24-2024 End: 09-17-2024 take 1 tablet by mouth at bedtime Atorvastatin 40 mg tablet Discontinued 40 mg PO AT BEDTIME 30 2 May 24, 2024 12:00am September 17, 2024 3:06pm baclofen 5 mg oral tablet (14 sources) gamma-Aminobutyric Acid-ergic Agonist Start: 10-12-2020 End: [...] A DAY as needed for pain 90 4 June 08, 2024 12:00am July 22, 2024 [...] NSAIDS 1 ml guselkumab 100 mg/ml auto-injector (14 sources) Interleukin-23 Antagonist Start: 07-04-2020 End: 12-25-2021 Guselkumab (Tremfya) 100 mg/mL auto-injector Discontinued 100 mg SC every 4 weeks July 04, 2020 1:00am December 25, 2021 8:20am hydroCHLOROthiazide 12.5 mg oral capsule (14 sources) Thiazide Diuretic Start: 09-08-2017 End: 03-21-2020 take 1 capsule by mouth once daily Hydrochlorothiazide 12.5 MG capsule Discontinued 12.5 mg PO DAILY 60 0 September 08, 2017 1:00am March 21, 2020 8:16am inFLIXimab-dyyb 100 mg injection (14 sources) Tumor Necrosis Factor Master Start: 09-04-2017 End: 03-21-2020 take 100 mg intravenously every month Infliximab-Dyyb 100 MG/10 ML recon soln Discontinued 100 mg IV EVERY MONTH September 04, 2017 1:00am March 21, 2020 8:16am levETIRAcetam 1000 mg oral tablet (14 sources) Start: 09-08-2017 End: 03-21-2020 take 1 [...] succinate 25 mg extended release oral tablet (14 sources) beta-Adrenergic Master Start: 06-11-2021 End: 10-29-2023 take 1 tablet by mouth once daily Metoprolol Succinate 25 mg tablet extended release 24 hr Discontinued 25 mg PO DAILY 60 June 11, 2021 12:00am October 29, 2023 8:15am naproxen 500 mg oral tablet (20 sources) Nonsteroidal Anti-inflammatory Drug Start: 07-22-2024 End: [...] 1 ml secukinumab 150 mg/ml prefilled syringe (20 sources) Interleukin-17A Antagonist Start: 12-25-2021 End: 09-17-2024 Secukinumab (Cosentyx) 150 mg/mL syringe Discontinued 300 mg SC every 4 weeks December 25, 2021 12:00am September 17, 2024 3:07pm skin start 4 wks after last weekly dose;inject [id number] doses each in different thigh/upper arm/abdominal areas. [...] lower limb] Onset: 09-28-2024 Chronic Cardiac dysrhythmias (15 sources) Tachycardia; Translations: [Tachycardia, unspecified] Episodic Chronic obstructive pulmonary disease and bronchiectasis (12 sources) Bronchitis; Translations: [Bronchitis, not specified as acute or chronic] 04-14-2023 Episodic Chronic ulcer of skin (20 sources) Non-pressure chronic ulcer of left heel and midfoot with fat layer exposed; Translations: [Non-pressure chronic ulcer of 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] Onset: 04-10-2025 09-01-2024 Chronic Deficiency and other anemia (20 sources) Anemia; Translations: [Anemia, unspecified] 02-09-2021 Episodic Deficiency and other anemia (1 source) Anemia, unspecified; Translations: [Anemia, unspecified] Onset: 03-07-2025 Episodic Diabetes mellitus with complications (1 source) Type 2 diabetes mellitus with other specified complication; Translations: [Type 2 diabetes mellitus with other specified complication] Onset: 10-05-2024 Chronic Diabetes mellitus without complication (19 sources) Type 2 diabetes mellitus; Translations: [Type 2 diabetes mellitus without complications] 11-01-2024 Chronic Diabetes mellitus without complication (13 sources) Other abnormal glucose; Translations: [Other abnormal glucose] 11-27-2022 Episodic Disorders of lipid metabolism (15 sources) Hyperlipidemia; Translations: [Hyperlipidemia, unspecified] Onset: 06-03-2024 05-28-2024 Chronic Epilepsy; convulsions (20 sources) Epilepsy; Translations: [Other generalized epilepsy and epileptic syndromes, not intractable, without status epilepticus] Onset: 05-24-2024 07-04-2020 Chronic Comment on above: LAST SEIZURE 05/2024 Epilepsy; convulsions (14 sources) Seizure; Translations: [Unspecified convulsions] 11-10-2020 Episodic Essential hypertension (20 sources) Hypertensive disorder; Translations: [Essential (primary) hypertension] Chronic Malaise and fatigue (17 sources) Right hemiparesis; Translations: [Weakness] Onset: 05-24-2024 06-01-2024 Episodic Neoplasms of unspecified nature or uncertain behavior (20 sources) Neoplastic disease; Translations: [Neoplasm of unspecified behavior of bone, soft tissue, and skin] 10-01-2024 Episodic Nutritional deficiencies (1 source) Deficiency of other specified B group vitamins; Translations: [Deficiency of other specified B group vitamins] Onset: 04-25-2025 Episodic Osteoarthritis (1 source) Bilateral primary osteoarthritis of hip; Translations: [Bilateral primary osteoarthritis of hip] Onset: 04-01-2025 Chronic Osteoporosis (14 sources) Osteoporosis; Translations: [Age-related osteoporosis without current pathological fracture] 02-09-2021 Chronic Other aftercare (11 sources) Post-discharge follow-up; Translations: [Encounter for follow-up examination after completed treatment for conditions other than malignant neoplasm] 05-28-2024 Episodic Other aftercare (1 source) Other shelter (current) drug therapy; Translations: [Other longitudinal float operator (current) drug therapy] Onset: 04-01-2025 Episodic Other connective tissue disease (11 sources) Weakness of face muscles; Translations: [Facial weakness] 06-01-2024 Episodic Other connective tissue disease (12 sources) Musculoskeletal pain; Translations: [Myalgia, other site] 03-01-2025 Episodic Other ear and sense organ disorders (1 source) Otalgia; Translations: [Otalgia, bilateral] Episodic Other ear and sense organ disorders (14 sources) Impacted cerumen; Translations: [Impacted cerumen, right ear] 02-09-2021 Episodic Other ear and sense organ disorders (1 source) Otalgia, bilateral; Translations: [Otalgia, unspecified] Episodic Other ear and sense organ disorders (13 sources) Pain of ear structure; Translations: [Otalgia, bilateral] 08-08-2021 Episodic Other hematologic conditions (14 sources) Raised cardiac enzyme or marker; Translations: [...] 06-01-2020 Chronic Other inflammatory condition of skin (2 sources) Other psoriatic arthropathy; Translations: [Other psoriatic arthropathy] Onset: 04-01-2025 Chronic Other inflammatory condition of skin (1 source) Other psoriasis; Translations: [Other psoriasis] Onset: 04-01-2025 Chronic Other lower respiratory disease (20 sources) Hypoxia; Translations: [Hypoxemia] 05-23-2024 Episodic Other non-traumatic joint disorders (14 sources) Joint pain; Translations: [Pain in unspecified joint] 07-04-2020 Episodic Other non-traumatic joint disorders (16 sources) Shoulder pain; Translations: [Pain in right shoulder] 11-01-2024 Episodic Other nutritional; endocrine; and metabolic disorders (14 sources) Obese class I; Translations: [Obesity, unspecified] 09-04-2017 Chronic Residual codes; unclassified (11 sources) Altered mental status; Translations: [Altered mental status, unspecified] 06-01-2024 Episodic Rheumatoid arthritis and related disease (17 sources) Rheumatoid arthritis; Translations: [Rheumatoid arthritis, unspecified] 09-04-2017 Chronic Spondylosis; intervertebral disc disorders; other back problems (1 source) Other spondylosis, cervical region; Translations: [Other spondylosis, cervical region] Onset: 04-01-2025 Chronic Spondylosis; intervertebral disc disorders; other back problems (20 sources) Chronic low back pain; Translations: [Chronic low back pain] 07-04-2020 Episodic Superficial injury; contusion (18 sources) Foreign body of foot; Translations: [Superficial foreign body, left foot, initial encounter] 12-01-2024 Episodic Syncope (14 sources) Syncope; Translations: [Syncope and collapse] 09-05-2017 Episodic Thyroid disorders (20 sources) Thyroid nodule; Translations: [Nontoxic single thyroid nodule] Onset: 05-24-2024 06-21-2024 Chronic Transient cerebral ischemia (11 sources) Transient cerebral ischemia; Translations: [Transient cerebral ischemic attack, unspecified] 05-23-2024 Chronic Unclassified (3 sources) Wound care center Past or Other Problems Problem Classification Problem Date Documented Date Episodic/Chronic Aspiration pneumonitis; food/vomitus (13 sources) Aspiration pneumonia; Translations: [Pneumonitis due to inhalation of food and vomit] Onset: 05-24-2024 06-01-2024 Episodic Open wounds of extremities (20 sources) Open wound, heel; Translations: [Unspecified open wound, unspecified foot, initial encounter] Onset: 05-24-2024 06-01-2024 Episodic Other aftercare (1 source) Encounter for follow-up examination after completed treatment for conditions other than malignant neoplasm; Translations: [Encounter for follow-up examination after completed treatment for conditions other than malignant neoplasm] Onset: 02-04-2025 Episodic Other and unspecified benign neoplasm (1 [...] conditions (not mental disorders or infectious disease) (16 sources) Electrocardiogram abnormal; Translations: [Abnormal electrocardiogram [ECG] [...] [Altered mental status, unspecified] Onset: 05-24-2024 Episodic Results Test Name Value Interpretation Reference Range Facility Office Visit Reporton 2024 Office Visit Report Normal [facility] Absolute lymphocyte countOrd ered By: Leeannakrystle Johnson on 03-25-2025 Lymphocytes Auto (Unsp spec) [#/Vol] 0.82 10*3/uL Low 0.83-4.51 [facility] Absolute neutrophil countOrd ered By: [facility] Alex on 03-25-2025 Neutrophils (Bld) [#/Vol] 9.2 10*3/uL High 2.0-7.7 [facility] Anion gap in Serum or Plasma Ordered By: Leeanna Johnson on 03-25-2025 Anion gap [Moles/Vol] 15 mmol/L 12-23 [facility] Automated lymphocyte count a s percentage of total leukocytesOrdered By: Leeanna Johnson on 03-25-2025 Lymphocytes/100 WBC Auto (Unsp spec) 7.6 % Low 19-41 [facility] BUN/creatinine ratioOrdered By: [facility] Alex on 03-25-2025 Urea nitrogen/Creatinine [Mass ratio] 33.5 mg/mg High 10-20 [facility] Basophil percentageOrdered B y: Leeanna Johnson on 03-25-2025 Basophils/100 WBC (Bld) 0.2 % 0-1 [facility] Bilirubin, totalOrdered By: Leeannakrystle Johnson on 03-25-2025 Bilirubin [Mass/Vol] 0.24 mg/dL 0.00-1.[address] [facility] CBC W/Diff, Automatedon 03-11 Absolute Lymph 0.82 X10 3/uL Low 0.83-4.51 [facility] Comment on above: Performed By: #### L [id number], L500.4050, L100.0100, L101.9900 ####[facility] [id number] [place], [address] Absolute Neut 9.2 X10 3/uL High 2.0-7.7 [facility] Comment on above: Performed By: #### L [id number], [id number], L100.0100, L101.9900 ####[facility] [id number] [place], [address] Basophils/100 WBC (Bld) 0.2 % Normal 0-1 [facility] Comment on above: Performed By: #### L [id number], [id number], L100.0100, L101.9900 ####[facility] [id number] [place], [address] Eosinophils/100 WBC (Bld) 0.8 % Normal 0-5 [facility] Comment on above: Performed By: #### L [id number], [id number], L100.0100, L101.9900 ####[facility] [id number] [place], [address] Erythrocyte distribution width (RBC) [Ratio] 16.0 % High 11.6-14.6 [facility] Comment on above: Performed By: #### L [id number], [id number], L100.0100, L101.9900 ####[facility] [id number] [place], [address] Hematocrit (Bld) [Volume fraction] 33.3 % Low 37-47 [facility] Comment on above: Performed By: #### L [id number], [id number], L100.0100, L101.9900 ####[facility] [id number] [place], [address] Hemoglobin (Bld) [Mass/Vol] 9.9 g/dL Low 12.0-15.0 [facility] Comment on above: Performed By: #### L [id number], [id number], L100.0100, L101.9900 ####[facility] [id number] [place], [address] IG% 0.400 Normal 0.0-0.9 [facility] Comment on above: Result Comment: IG% - Immature Granulocytes (promyelocytes, myelocytes andmetamyelocytes) > 1% indicates that a LEFT SHIFT is Present. Performed By: #### L [id number], [id number], L100.0100, L101.9900 ####[facility] [id number] [place], [address] Lymphocytes/100 WBC (Bld) 7.6 % Low 19-41 [facility] Comment on above: Performed By: #### L [id number], [id number], L100.0100, L101.9900 ####[facility] [id number] [place], [address] MCH (RBC) [Entitic mass] 24.9 pg Low 27.0-32.0 [facility] Comment on above: Performed By: #### L [id number], [id number], L100.0100, L101.9900 ####[facility] [id number] [place], [address] MCHC (RBC) [Mass/Vol] 29.7 g/dL Low 32-36 [facility] Comment on above: Performed By: #### L [id number], [id number], L100.0100, L101.9900 ####[facility] [id number] [place], [address] MCV (RBC) [Entitic vol] 83.7 fL Normal 81-99 [facility] Comment on above: Performed By: #### L [id number], [id number], L100.0100, L101.9900 ####[facility] [address] [place], [address] Monocytes/100 WBC (Bld) 5.3 % Normal 0-10 [facility] Comment on above: Performed By: #### L 501.6710, L500.4050, L100.0100, L101.9900 ####[facility] [address] [place], [address] Neutrophils/100 WBC (Bld) 85.7 % High 47-70 [facility] Comment on above: Performed By: #### L 501.6710, L500.4050, L100.0100, L101.9900 ####[facility] [address] [place], [address] Nucleated RBC (Bld) [#/Vol] 0 10*3/uL Normal 0-5 [facility] Comment on above: Performed By: #### L 501.6710, L500.4050, L100.0100, L101.9900 ####[facility] [address] [place], [address] Platelet mean volume (Bld) [Entitic vol] 10.5 fL Normal 6.2-12.0 [facility] Comment on above: Performed By: #### L 501.6710, L500.4050, L100.0100, L101.9900 ####[facility] [address] [place], [address] Platelets (Bld) [#/Vol] 427 10*3/uL Normal 150-450 [facility] Comment on above: Performed By: #### L 501.6710, L500.4050, L100.0100, L101.9900 ####[facility] [address] [place], [address] RBC (Bld) [#/Vol] 3.98 10*6/uL Low 4.2-5.4 [facility] Comment on above: Performed By: #### L 501.6710, L500.4050, L100.0100, L101.9900 ####[facility] [address] [place], [address] RDW SD 48.2 fl High 35.1-43.9 [facility] Comment on above: Performed By: #### L 501.6710, L500.4050, L100.0100, L101.9900 ####[facility] [address] [place], [address] WBC (Bld) [#/Vol] 10.8 10*3/uL Normal 4.4-11.0 [facility] Comment on above: Performed By: #### L 501.6710, L500.4050, L100.0100, L101.9900 ####[facility] [address] [place], [address] CRPon 03-25-2025 C-REACTIVE PROT 74.70 mg/L High 0.0-3.0 [facility] Comment on above: Performed By: #### L 501.6710, L500.4050, L100.0100, L101.9900 ####[facility] [address] [place], [address] Carbon dioxide, total [Moles /volume] in Central venous bloodOrdered By: Leeanna Johnson on 03-25-2025 CO2 [Moles/Vol] 18.0 mmol/L Low 21.0-32.0 [facility] Chloride assayOrdered By: Diony Johnson on 03-25-2025 Chloride [Moles/Vol] 106 mmol/L 98-[address] [facility] Comprehensive Metabolic Prof ilon 03-25-2025 Albumin [Mass/Vol] 3.6 g/dL Normal 3.4-4.8 [facility] Comment on above: Performed By: #### L 501.6710, L500.4050, L100.0100, L101.9900 ####[facility] [address] [place], [address] Albumin/Globulin [Mass ratio] 0.9 {ratio} Normal 0.9-2.4 [facility] Comment on above: Performed By: #### L 501.6710, L500.4050, L100.0100, L101.9900 ####[facility] [address] [place], [address] ALK PHOS 94 U/L Normal 35-104 [facility] Comment on above: Performed By: #### L 501.6710, L500.4050, L100.0100, L101.9900 ####[facility] [address] [place], [address] ALT [Catalytic activity/Vol] 8 U/L Normal <=34 [facility] Comment on above: Performed By: #### L 501.6710, L500.4050, L100.0100, L101.9900 ####[facility] [address] [place], [address] AST [Catalytic activity/Vol] 13 U/L Normal <=31 [facility] Comment on above: Performed By: #### L 501.6710, L500.4050, L100.0100, L101.9900 ####[facility] [address] [place], [address] Bilirubin [Mass/Vol] 0.24 mg/dL Normal 0.00-1.[address] [facility] Comment on above: Performed By: #### L 501.6710, L500.4050, L100.0100, L101.9900 ####[facility] [address] [place], [address] BUN/CRE 33.5 RATIO High 10-20 [facility] Comment on above: Performed By: #### L 501.6710, L500.4050, L100.0100, L101.9900 ####[facility] [address] [place], [address] Calcium [Mass/Vol] 9.8 mg/dL Normal 7.6-11.0 [facility] Comment on above: Performed By: #### L 501.6710, L500.4050, L100.0100, L101.9900 ####[facility] [address] [place], [address] Chloride [Moles/Vol] 106 mmol/L Normal 98-[address] [facility] Comment on above: Performed By: #### L 501.6710, L500.4050, L100.0100, L101.9900 ####[facility] [address] [place], [address] CO2 [Moles/Vol] 18.0 mmol/L Low 21.0-32.0 [facility] Comment on above: Performed By: #### L 501.6710, L500.4050, L100.0100, L101.9900 ####[facility] [address] [place], [address] Creatinine [Mass/Vol] 0.78 mg/dL Normal 0.70-1.20 [facility] Comment on above: Performed By: #### L 501.6710, L500.4050, L100.0100, L101.9900 ####[facility] [address] [place], [address] GAP 15 Normal 5-15 [facility] Comment on above: Performed By: #### L 501.6710, L500.4050, L100.0100, L101.9900 ####[facility] [address] [place], [address] GFR/1.73 sq M.predicted among non-blacks MDRD (S/P/Bld) [Vol rate/Area] 83 mL/min/{1.73_m2} Normal >60 [facility] Comment on above: Result Comment: mL/m in/1.73m2 CKD-EPI Creatinine Equation (2020) Performed By: #### L 501.6710, L500.4050, L100.0100, L101.9900 ####[facility] [address] [place], [address] Globulin (S) [Mass/Vol] 4.1 g/dL Normal 2.2-4.2 [facility] Comment on above: Performed By: #### L 501.6710, L500.4050, L100.0100, L101.9900 ####[facility] [address] [place], [address] Glucose [Mass/Vol] 260 mg/dL High 70-99 [facility] Comment on above: Performed By: #### L 501.6710, L500.4050, L100.0100, L101.9900 ####[facility] [address] [place], [address] Potassium [Moles/Vol] 4.3 mmol/L Normal 3.3-5.1 [facility] Comment on above: Performed By: #### L 501.6710, L500.4050, L100.0100, L101.9900 ####[facility] [address] [place], [address] Sodium [Moles/Vol] 139 mmol/L Normal 133-145 [facility] Comment on above: Performed By: #### L 501.6710, L500.4050, L100.0100, L101.9900 ####[facility] [address] [place], [address] T PROT 7.7 g/dL Normal 5.9-8.4 [facility] Comment on above: Performed By: #### L 501.6710, L500.4050, L100.0100, L101.9900 ####[facility] [address] [place], [place], [id number] Urea nitrogen [Mass/Vol] 26 mg/dL High 4-19 [facility] Comment on above: Performed By: #### L 501.6710, L500.4050, L100.0100, L101.9900 ####[facility] [address] [place], [place], [id number] Eosinophil percentageOrdered By: Leeanna Johnson on 03-25-2025 Eosinophils/100 WBC (Bld) 0.8 % 0-5 [facility] Erythrocyte Sed Rateon 03-25 SED RATE 66 mm/hr High 0-30 [facility] Comment on above: Performed By: #### L 501.6710, L500.4050, L100.0100, L101.9900 ####[facility] [address] [place], [place], [phone] Erythrocyte distribution wid th ratioOrdered By: Leeanna Johnson on 03-25-2025 Erythrocyte distribution width (RBC) [Ratio] 16.0 % High 11.6-14.6 [facility] Erythrocyte distribution wid th standard deviationOrdered By: Leeannakrystle Johnson on 03-25-2025 Erythrocyte distribution width (RBC) [Ratio] 48.2 fl High 35.1-43.9 [facility] Erythrocyte sedimentation ra teOrdered By: Leeanna Johnson on 03-25-2025 ESR (Bld) [Velocity] 66 mm/h High 0-[address] [facility] Glomerular filtration rate ( GFR) estimation/1.73 sq m using serum, plasma, or whole bOrdered By: Leeanna Johnson on 03-25-2025 GFR/1.73 sq M.predicted among non-blacks MDRD (S/P/Bld) [Vol rate/Area] 83 mL/min/{1.73_m2} >60 [facility] Comment on above: mL/min/1.73m2 CKD-EP I Creatinine Equation (2020) Hematocrit Auto (Bld) [Volum e fraction]Ordered By: Leeanna Johnson on 03-25-2025 Hematocrit (Bld) [Volume fraction] 33.3 % Low 37-47 [facility] Hemoglobin measurementOrdere d By: Leeanna Johnson on 03-25-2025 Hemoglobin (Bld) [Mass/Vol] 9.9 g/dL Low 12.0-15.0 [facility] Immature granulocytes/100 WB C Auto (Bld)Ordered By: Leeanna Johnson on 03-25-2025 Immature granulocytes/100 WBC (Bld) 0.400 % 0.0-0.9 [facility] Comment on above: IG% - Immature Granu locytes (promyelocytes, myelocytes and metamyelocytes) > 1% indicates that a LEFT SHIFT is Present. Laboratory - Chemistry and C hemistry - challengeOrdered By: Leeanna Johnson on 03-25-2025 AST [Catalytic activity/Vol] 13 U/L <32 [facility] MCV (mean corpuscular volume ) determinationOrdered By: Leeanna Johnson on 03-25-2025 MCV (RBC) [Entitic vol] 83.7 fL 81-99 [facility] Mean corpuscular hemoglobin (MCH) determinationOrdered By: Leeanna Johnson 03-25-2025 MCH (RBC) [Entitic mass] 24.9 pg Low 27.0-32.0 [facility] Mean corpuscular hemoglobin concentration (MCHC) determinationOrdered By: Leeanna Johnson 03-25-2025 MCHC (RBC) [Mass/Vol] 29.7 g/dL Low 32-36 [facility] Mean platelet volume determi nationOrdered By: Leeanna Johnson on 03-25-2025 Platelet mean volume (Bld) [Entitic vol] 10.5 fL 6.2-12.0 [facility] Monocyte percentageOrdered B y: Leeanna Johnson on 03-25-2025 Monocytes/100 WBC (Bld) 5.3 % 0-10 [facility] Neutrophil percentageOrdered By: Leeanna Johnson on 03-25-2025 Neutrophils/100 WBC (Bld) 85.7 % High 47-70 [facility] Nucleated red blood cell per centageOrdered By: Leeanna Johnson on 03-25-2025 Nucleated RBC/100 WBC (Bld) [Ratio] 0 % 0-5 [facility] Platelet countOrdered By: Diony Johnson on 03-25-2025 Platelets (Bld) [#/Vol] 427 10*3/uL 150-450 [facility] Potassium measurement (mass/ volume)Ordered By: Leeanna Johnson on 03-25-2025 Potassium (Unsp spec) [Mass/Vol] 4.3 mmol/L 3.3-5.1 [facility] RBC Auto (Bld) [#/Vol]Ordere d By: Leeanna Johnson on 03-25-2025 RBC (Bld) [#/Vol] 3.98 10*6/uL Low 4.2-5.4 [facility] Serum creatinine measurement (mass/volume)Ordered By: Leeanna Johnson on 03-25-2025 Creatinine [Mass/Vol] 0.78 mg/dL 0.70-1.20 [facility] Serum globulin measurementOr dered By: Leeanna Johnson on 03-25-2025 Globulin (S) [Mass/Vol] 4.1 g/dL 2.2-4.2 [facility] Serum glucose measurement (m ass/volume)Ordered By: Leeanna Johnson on 03-25-2025 Glucose [Mass/Vol] 260 mg/dL High 70-99 [facility] Serum or plasma C reactive p rotein measurement (mass/volume)Ordered By: Leeanna Johnson on 03-25-2025 CRP [Mass/Vol] 74.70 mg/L High 0.0-3.0 [facility] Serum or plasma alanine monore otransferase (ALT) measurementOrdered By: Leeanna Johnson on 03-25-2025 ALT [Catalytic activity/Vol] 8 U/L <35 [facility] Serum or plasma albumin digna urement (mass/volume)Ordered By: Leeanna Johnson on 03-25-2025 Albumin [Mass/Vol] 3.6 g/dL 3.4-4.8 [facility] Serum or plasma albumin/glob ulin mass ratioOrdered By: Leeanna Johnson on 03-25-2025 Albumin/Globulin [Mass ratio] 0.9 {ratio} 0.9-2.4 [facility] Serum or plasma alkaline rudy sphatase measurementOrdered By: Leeanna Johnson on 03-25-2025 ALP [Catalytic activity/Vol] 94 U/L 35-104 [facility] Serum or plasma calcium digna urement (mass/volume)Ordered By: Leeanna Johnson on 03-25-2025 Calcium [Mass/Vol] 9.8 mg/dL 7.6-11.0 [facility] Serum or plasma urea nitroge n measurement (mass/volume)Ordered By: Leeanna Johnson on 03-25-2025 Urea nitrogen [Mass/Vol] 26 mg/dL High 4-19 [facility] Sodium levelOrdered By: Eliazar Johnson on 03-25-2025 Sodium [Moles/Vol] 139 mmol/L 133-145 [facility] Total proteinOrdered By: Shravan Johnson on 03-25-2025 Protein [Mass/Vol] 7.7 g/dL 5.9-8.4 [facility] White blood cell (WBC) count Ordered By: Leeanna Johnson on 03-25-2025 WBC (Bld) [#/Vol] 10.8 10*3/uL 4.4-11.0 [facility] Quantiferon TB-Gold+on 03-15 QFT MITOGEN TONYA 1.26 IU/mL Normal . [facility] Comment on above: Performed By: #### L 3890.6102, L3890.6301, L3400.8000, L3890.6202 ####[facility] [address] [place], [address] QFT NIL VALUE 0.01 IU/mL Normal . [facility] Comment on above: Performed By: #### L 3890.6102, L3890.6301, L3400.8000, L3890.6202 ####[facility] [address] [place], [address] QFT TB GOLD+ Comment Normal . [facility] Comment on above: Result Comment: Jemal tiFERON-TB Gold Plus is a qualitative indirect test forM tuberculosis infection (including disease) and isintended for use in conjunction with risk assessment,radiography, and other medical and diagnostic evaluations.The QuantiFERON-TB Gold Plus result is determined bysubtracting the Nil value from either TB antigen (Ag)value. The Mitogen tube serves as a control for the test. Performed By: #### L 3890.6102, L3890.6301, L3400.8000, L3890.6202 ####[facility] [address] [place], [place], [address] QFT TB POS CRIT Negative Normal Negative [facility] Comment on above: Result Comment: No r [...] the productionof interferon gamma. Chemiluminescence immunoassaymethodologyPerformed at: [employer] [id number] Director: Jaxon Dunham PhD, Phone: [phone] Performed By: #### L 3890.6102, L3890.6301, L3400.8000, L3890.6202 ####[facility] [address] [place], [place], [address] QFT TB1+ AG TONYA 0.06 IU/mL Normal . [facility] Comment on above: Performed By: #### L 3890.6102, L3890.6301, L3400.8000, L3890.6202 ####[facility] [address] [place], [place], [phone]) QFT TB2+ AG TONYA 0.06 IU/mL Normal . [facility] Comment on above: Performed By: #### L 3890.6102, L3890.6301, L3400.8000, L3890.6202 ####[facility] [address] [place], [place], [id number] Chest PA and Lateralon 03-11 Chest PA and Lateral Normal [facility] Hepatitis B Surface Antibody on 03-11-2025 HEP B Surf Ab Non-Reactive Normal [facility] Comment on above: Result Comment: <8.5 mIU/mL: Non-Reactive8.5<= x <11.5 mIU/mL: Indeterminate>=11.5 mIU/mL: Reactive Non Reactive: Inconsistent with immunity less than <10 mIU/mL Reactive: Consistent with immunity greater than or equal to 10 mIU/mL Performed By: #### L 3890.6102, L3890.6301, L3400.8000, L3890.6202 ####[facility] [address] [place], [place], [address] Hepatitis C Antibodyon 03-11 Hepatitis C Ab Non-Reactive Normal Nonreactive [facility] Comment on above: Result Comment: Reac tive: Presumptive evidence of antibodies to HCV. [facility] recommendations for supplemental testing.Non-Reactive: Antibodies to HCV were not detected; does notexclude the possibility of exposure to HCVReactive Results are presumptive evidence of antibodies toHCV. Follow CDC recommendations for supplemental testing.Order confirmation testing: HCV Quant by PCR testing -HCVPCR #[id number] Non Reactive: < 0.8 Equivocal: >/= 0.8 to < 1.0 Reactive: >/= 1.0The [facility] requires that a reactive/equivocal HCV antibodyresult be sent out for confirmation. HCV Quant by PCRtesting. Performed By: #### L 3890.6102, L3890.6301, L3400.8000, L3890.6202 ####[facility] [address] [place], [place], [address] L3890.6102on 03-11-2025 HEP B Surf Ag Non-Reactive Normal Nonreactive [facility] Comment on above: Result Comment: Reac tive: Presumptive evidence of HBV. Repeatedly reactivesamples must be confirmed using a neutralization test([employer] HBsAg Confirmatory Test)Non-Reactive: HBsAg not detected; does not exclude thepossibility of exposure to HBV Performed By: #### L 3890.6102, L3890.6301, L3400.8000, L3890.6202 ####[facility] [address] [place], [address] Laboratory - Microbiology an d Antimicrobial susceptibilityOrdered By: Leeanna Johnson on 03-11-2025 HBV surface Ag Ql (S) Non-Reactive Nonreactive [facility] Comment on above: Reactive: Presumptiv e evidence of HBV. Repeatedly reactive samples must be confirmed using a neutralization test ([employer] HBsAg Confirmatory Test)Non-Reactive: HBsAg not detected; does not exclude the possibility of exposure to HBV Qualitative QuantiFERON-TB g old in tube testOrdered By: Leeanna Johnson on 03-11-2025 M. tuberculosis tuberculin stim IFN-g Ql (Bld) 0.06 IU/mL . [facility] Serum hepatitis B virus surf cain antibody detectionOrdered By: Leeanna Johnson on 03-11-2025 HBV surface Ab Ql (S) Non-Reactive [facility] Comment on above: <8.5 mIU/mL: Non-Harper ctive8.5<= x <11.5 mIU/mL: Indeterminate>=11.5 mIU/mL: Reactive Non Reactive: Inconsistent with immunity less than <10 mIU/mL Reactive: Consistent with immunity greater than or equal to 10 mIU/mL Absolute lymphocyte countOrd ered By: Leeanna Johnson on 03-08-2025 Lymphocytes Auto (Unsp spec) [#/Vol] 2.15 10*3/uL 0.83-4.51 [facility] Absolute neutrophil countOrd ered By: Leeanna Johnson on 03-08-2025 Neutrophils (Bld) [#/Vol] 4.7 10*3/uL 2.0-7.7 [facility] Anion gap in Serum or Plasma Ordered By: Leeanna Johnson on 03-08-2025 Anion gap [Moles/Vol] 14 mmol/L 5-15 [facility] Automated lymphocyte count a s percentage of total leukocytesOrdered By: Leeanna Johnson on 03-08-2025 Lymphocytes/100 WBC Auto (Unsp spec) 28.5 % 19-41 [facility] BUN/creatinine ratioOrdered By: Leeannakrystle Johnson on 03-08-2025 Urea nitrogen/Creatinine [Mass ratio] 33.7 mg/mg High 10-20 [facility] Basophil percentageOrdered B y: Leeanna Johnson on 03-08-2025 Basophils/100 WBC (Bld) 0.4 % 0-1 [facility] Bilirubin, totalOrdered By: Leeannakrystle Johnson on 03-08-2025 Bilirubin [Mass/Vol] mg/dL 0.00-1.[address] [facility] CBC W/Diff, Automatedon 02-09 Absolute Lymph 2.15 X10 3/uL Normal 0.83-4.51 [facility] Comment on above: Performed By: #### L 100.0100, L501.6710, L500.4050, L101.9900 ####[facility] [address] [place], [address] Absolute Neut 4.7 X10 3/uL Normal 2.0-7.7 [facility] Comment on above: Performed By: #### L 100.0100, L501.6710, L500.4050, L101.9900 ####[facility] [address] [place], [address] Basophils/100 WBC (Bld) 0.4 % Normal 0-1 [facility] Comment on above: Performed By: #### L 100.0100, L501.6710, L500.4050, L101.9900 ####[facility] [address] [place], [address] Eosinophils/100 WBC (Bld) 1.1 % Normal 0-5 [facility] Comment on above: Performed By: #### L 100.0100, L501.6710, L500.4050, L101.9900 ####[facility] [address] [place], [address] Erythrocyte distribution width (RBC) [Ratio] 15.1 % High 11.6-14.6 [facility] Comment on above: Performed By: #### L 100.0100, L501.6710, L500.4050, L101.9900 ####[facility] [address] [place], [address] Hematocrit (Bld) [Volume fraction] 32.3 % Low 37-47 [facility] Comment on above: Performed By: #### L 100.0100, L501.6710, L500.4050, L101.9900 ####[facility] [address] [place], [address] Hemoglobin (Bld) [Mass/Vol] 10.2 g/dL Low 12.0-15.0 [facility] Comment on above: Performed By: #### L 100.0100, L501.6710, L500.4050, L101.9900 ####[facility] [address] [place], [address] IG% 0.100 Normal 0.0-0.9 [facility] Comment on above: Result Comment: IG% - Immature Granulocytes (promyelocytes, myelocytes andmetamyelocytes) > 1% indicates that a LEFT SHIFT is Present. Performed By: #### L 100.0100, L501.6710, L500.4050, L101.9900 ####[facility] [address] [place], [address] Lymphocytes/100 WBC (Bld) 28.5 % Normal 19-41 [facility] Comment on above: Performed By: #### L 100.0100, L501.6710, L500.4050, L101.9900 ####[facility] [address] [place], [address] MCH (RBC) [Entitic mass] 26.0 pg Low 27.0-32.0 [facility] Comment on above: Performed By: #### L 100.0100, L501.6710, L500.4050, L101.9900 ####[facility] [address] [place], [address] MCHC (RBC) [Mass/Vol] 31.6 g/dL Low 32-36 [facility] Comment on above: Performed By: #### L 100.0100, L501.6710, L500.4050, L101.9900 ####[facility] [address] [place], [address] MCV (RBC) [Entitic vol] 82.4 fL Normal 81-99 [facility] Comment on above: Performed By: #### L 100.0100, L501.6710, L500.4050, L101.9900 ####[facility] [address] [place], [address] Monocytes/100 WBC (Bld) 7.3 % Normal 0-10 [facility] Comment on above: Performed By: #### L 100.0100, L501.6710, L500.4050, L101.9900 ####[facility] [address] [place], [address] Neutrophils/100 WBC (Bld) 62.6 % Normal 47-70 [facility] Comment on above: Performed By: #### L 100.0100, L501.6710, L500.4050, L101.9900 ####[facility] [address] [place], [address] Nucleated RBC (Bld) [#/Vol] 0 10*3/uL Normal 0-5 [facility] Comment on above: Performed By: #### L 100.0100, L501.6710, L500.4050, L101.9900 ####[facility] [address] [place], [address] Platelet mean volume (Bld) [Entitic vol] 10.4 fL Normal 6.2-12.0 [facility] Comment on above: Performed By: #### L 100.0100, L501.6710, L500.4050, L101.9900 ####[facility] [address] [place], [address] Platelets (Bld) [#/Vol] 466 10*3/uL High 150-450 [facility] Comment on above: Performed By: #### L 100.0100, L501.6710, L500.4050, L101.9900 ####[facility] [address] [place], [address] RBC (Bld) [#/Vol] 3.92 10*6/uL Low 4.2-5.4 [facility] Comment on above: Performed By: #### L 100.0100, L501.6710, L500.4050, L101.9900 ####[facility] [address] [place], [address] RDW SD 45.2 fl High 35.1-43.9 [facility] Comment on above: Performed By: #### L 100.0100, L501.6710, L500.4050, L101.9900 ####[facility] [address] [place], [address] WBC (Bld) [#/Vol] 7.5 10*3/uL Normal 4.4-11.0 [facility] Comment on above: Performed By: #### L 100.0100, L501.6710, L500.4050, L101.9900 ####[facility] [address] [place], [address] CRPon 03-08-2025 C-REACTIVE PROT 47.60 mg/L High 0.0-3.0 [facility] Comment on above: Performed By: #### L 100.0100, L501.6710, L500.4050, L101.9900 ####[facility] [address] [place], [address] Carbon dioxide, total [Moles /volume] in Central venous bloodOrdered By: Leeanna Johnson on 03-08-2025 CO2 [Moles/Vol] 20.0 mmol/L Low 21.0-32.0 [facility] Chloride assayOrdered By: Diony Johnson on 03-08-2025 Chloride [Moles/Vol] 107 mmol/L 98-[address] [facility] Comprehensive Metabolic Prof ilon 03-08-2025 Albumin [Mass/Vol] 3.7 g/dL Normal 3.4-4.8 [facility] Comment on above: Performed By: #### L 100.0100, L501.6710, L500.4050, L101.9900 ####[facility] [address] [place], [address] Albumin/Globulin [Mass ratio] 0.9 {ratio} Normal 0.9-2.4 [facility] Comment on above: Performed By: #### L 100.0100, L501.6710, L500.4050, L101.9900 ####[facility] [address] [place], [address] ALK PHOS 101 U/L Normal 35-104 [facility] Comment on above: Performed By: #### L 100.0100, L501.6710, L500.4050, L101.9900 ####[facility] [address] [place], [address] ALT [Catalytic activity/Vol] 13 U/L Normal <=34 [facility] Comment on above: Performed By: #### L 100.0100, L501.6710, L500.4050, L101.9900 ####[facility] [address] [place], [address] AST [Catalytic activity/Vol] 17 U/L Normal <=31 [facility] Comment on above: Performed By: #### L 100.0100, L501.6710, L500.4050, L101.9900 ####[facility] [address] [place], [address] BUN/CRE 33.7 RATIO High 10-20 [facility] Comment on above: Performed By: #### L 100.0100, L501.6710, L500.4050, L101.9900 ####[facility] [address] [place], [address] Calcium [Mass/Vol] 9.9 mg/dL Normal 7.6-11.0 [facility] Comment on above: Performed By: #### L 100.0100, L501.6710, L500.4050, L101.9900 ####[facility] [address] [place], [address] Chloride [Moles/Vol] 107 mmol/L Normal 98-[address] [facility] Comment on above: Performed By: #### L 100.0100, L501.6710, L500.4050, L101.9900 ####[facility] [address] [place], [address] CO2 [Moles/Vol] 20.0 mmol/L Low 21.0-32.0 [facility] Comment on above: Performed By: #### L 100.0100, L501.6710, L500.4050, L101.9900 ####[facility] [address] [place], [address] Creatinine [Mass/Vol] 0.71 mg/dL Normal 0.70-1.20 [facility] Comment on above: Performed By: #### L 100.0100, L501.6710, L500.4050, L101.9900 ####[facility] [address] [place], [address] GAP 14 Normal 5-15 [facility] Comment on above: Performed By: #### L 100.0100, L501.6710, L500.4050, L101.9900 ####[facility] [address] [place], [address] GFR/1.73 sq M.predicted among non-blacks MDRD (S/P/Bld) [Vol rate/Area] 94 mL/min/{1.73_m2} Normal >60 [facility] Comment on above: Result Comment: mL/m in/1.73m2 CKD-EPI Creatinine Equation (2020) Performed By: #### L 100.0100, L501.6710, L500.4050, L101.9900 ####[facility] [address] [place], [address] Globulin (S) [Mass/Vol] 4.1 g/dL Normal 2.2-4.2 [facility] Comment on above: Performed By: #### L 100.0100, L501.6710, L500.4050, L101.9900 ####[facility] [address] [place], [address] Glucose [Mass/Vol] 166 mg/dL High 70-99 [facility] Comment on above: Performed By: #### L 100.0100, L501.6710, L500.4050, L101.9900 ####[facility] [address] [place], [address] Potassium [Moles/Vol] 3.6 mmol/L Normal 3.3-5.1 [facility] Comment on above: Performed By: #### L 100.0100, L501.6710, L500.4050, L101.9900 ####[facility] [address] [place], [address] Sodium [Moles/Vol] 141 mmol/L Normal 133-145 [facility] Comment on above: Performed By: #### L 100.0100, L501.6710, L500.4050, L101.9900 ####[facility] [address] [place], [address] T BILI < 0.15 Normal 0.00-1.30 [facility] Comment on above: Performed By: #### L 100.0100, L501.6710, L500.4050, L101.9900 ####[facility] [address] [place], [address] T PROT 7.8 g/dL Normal 5.9-8.4 [facility] Comment on above: Performed By: #### L 100.0100, L501.6710, L500.4050, L101.9900 ####[facility] [address] [place], [address] Urea nitrogen [Mass/Vol] 24 mg/dL High 4-19 [facility] Comment on above: Performed By: #### L 100.0100, L501.6710, L500.4050, L101.9900 ####[facility] [address] [place], [address] Eosinophil percentageOrdered By: Leeanna Johnson on 03-08-2025 Eosinophils/100 WBC (Bld) 1.1 % 0-5 [facility] Erythrocyte Sed Rateon 03-08 SED RATE 63 mm/hr High 0-30 [facility] Comment on above: Performed By: #### L 100.0100, L501.6710, L500.4050, L101.9900 ####[facility] [address] [place], [address] Erythrocyte distribution wid th ratioOrdered By: Leeanna Johnson on 03-08-2025 Erythrocyte distribution width (RBC) [Ratio] 15.1 % High 11.6-14.6 [facility] Erythrocyte distribution wid th standard deviationOrdered By: Leeanna Johnson on 03-08-2025 Erythrocyte distribution width (RBC) [Ratio] 45.2 fl High 35.1-43.9 [facility] Erythrocyte sedimentation ra teOrdered By: Leeanna Johnson on 03-08-2025 ESR (Bld) [Velocity] 63 mm/h High 0-[address] [facility] Glomerular filtration rate ( GFR) estimation/1.73 sq m using serum, plasma, or whole bOrdered By: Leeanna Johnson on 03-08-2025 GFR/1.73 sq M.predicted among non-blacks MDRD (S/P/Bld) [Vol rate/Area] 94 mL/min/{1.73_m2} >60 [facility] Comment on above: mL/min/1.73m2 CKD-EP I Creatinine Equation (2020) Hematocrit Auto (Bld) [Volum e fraction]Ordered By: Leeanna Johnson on 03-08-2025 Hematocrit (Bld) [Volume fraction] 32.3 % Low 37-47 [facility] Hemoglobin measurementOrdere d By: Leeanna Johnson on 03-08-2025 Hemoglobin (Bld) [Mass/Vol] 10.2 g/dL Low 12.0-15.0 [facility] Immature granulocytes/100 WB C Auto (Bld)Ordered By: Leeanna Johnson 03-08-2025 Immature granulocytes/100 WBC (Bld) 0.100 % 0.0-0.9 [facility] Comment on above: IG% - Immature Granu locytes (promyelocytes, myelocytes and metamyelocytes) > 1% indicates that a LEFT SHIFT is Present. Laboratory - Chemistry and C hemistry - challengeOrdered By: Leeanna Johnson on 03-08-2025 AST [Catalytic activity/Vol] 17 U/L <32 [facility] MCV (mean corpuscular volume ) determinationOrdered By: Leeanna Johnson 03-08-2025 MCV (RBC) [Entitic vol] 82.4 fL 81-99 [facility] Mean corpuscular hemoglobin (MCH) determinationOrdered By: Leeanna Johnson on 03-08-2025 MCH (RBC) [Entitic mass] 26.0 pg Low 27.0-32.0 [facility] Mean corpuscular hemoglobin concentration (MCHC) determinationOrdered By: Leeanna Johnson on 03-08-2025 MCHC (RBC) [Mass/Vol] 31.6 g/dL Low 32-36 [facility] Mean platelet volume determi nationOrdered By: Leeanna Johnson on 03-08-2025 Platelet mean volume (Bld) [Entitic vol] 10.4 fL 6.2-12.0 [facility] Monocyte percentageOrdered B y: Leeanna Johnson on 03-08-2025 Monocytes/100 WBC (Bld) 7.3 % 0-10 [facility] Neutrophil percentageOrdered By: Leeanna Johnson on 03-08-2025 Neutrophils/100 WBC (Bld) 62.6 % 47-70 [facility] Nucleated red blood cell per centageOrdered By: Leeanna Johnson on 03-08-2025 Nucleated RBC/100 WBC (Bld) [Ratio] 0 % 0-5 [facility] Office Visit Reporton 2024 Office Visit Report Normal [facility] Platelet countOrdered By: Diony Johnson on 03-08-2025 Platelets (Bld) [#/Vol] 466 10*3/uL High 150-450 [facility] Potassium measurement (mass/ volume)Ordered By: Leeanna Johnson on 03-08-2025 Potassium (Unsp spec) [Mass/Vol] 3.6 mmol/L 3.3-5.1 [facility] RBC Auto (Bld) [#/Vol]Ordere d By: Leeanna Johnson on 03-08-2025 RBC (Bld) [#/Vol] 3.92 10*6/uL Low 4.2-5.4 [facility] Serum creatinine measurement (mass/volume)Ordered By: Leeanna Johnson on 03-08-2025 Creatinine [Mass/Vol] 0.71 mg/dL 0.70-1.20 [facility] Serum globulin measurementOr dered By: Leeanna Johnson on 03-08-2025 Globulin (S) [Mass/Vol] 4.1 g/dL 2.2-4.2 [facility] Serum glucose measurement (m ass/volume)Ordered By: Leeanna Johnson on 03-08-2025 Glucose [Mass/Vol] 166 mg/dL High 70-99 [facility] Serum or plasma C reactive p rotein measurement (mass/volume)Ordered By: Leeanna Johnson on 03-08-2025 CRP [Mass/Vol] 47.60 mg/L High 0.0-3.0 [facility] Serum or plasma alanine monroe otransferase (ALT) measurementOrdered By: Leeanna Johnson on 03-08-2025 ALT [Catalytic activity/Vol] 13 U/L <35 [facility] Serum or plasma albumin digna urement (mass/volume)Ordered By: Leeanna Johnson on 03-08-2025 Albumin [Mass/Vol] 3.7 g/dL 3.4-4.8 [facility] Serum or plasma albumin/glob ulin mass ratioOrdered By: Leeanna Johnson on 03-08-2025 Albumin/Globulin [Mass ratio] 0.9 {ratio} 0.9-2.4 [facility] Serum or plasma alkaline rudy sphatase measurementOrdered By: Leeanna Johnson on 03-08-2025 ALP [Catalytic activity/Vol] 101 U/L 35-104 [facility] Serum or plasma calcium digna urement (mass/volume)Ordered By: Leeanna Johnson on 03-08-2025 Calcium [Mass/Vol] 9.9 mg/dL 7.6-11.0 [facility] Serum or plasma urea nitroge n measurement (mass/volume)Ordered By: Leeanna Johnson on 03-08-2025 Urea nitrogen [Mass/Vol] 24 mg/dL High 4-19 [facility] Sodium levelOrdered By: Eliazar Johnson on 03-08-2025 Sodium [Moles/Vol] 141 mmol/L 133-145 [facility] Total proteinOrdered By: Shravan Johnson on 03-08-2025 Protein [Mass/Vol] 7.8 g/dL 5.9-8.4 [facility] White blood cell (WBC) count Ordered By: Leeanna Johnson on 03-08-2025 WBC (Bld) [#/Vol] 7.5 10*3/uL 4.4-11.0 [facility] Folates, RBCon 03-02-2025 Fol.,Hemolysate 358.0 ng/mL Normal Not Estab. [facility] Comment on above: Performed By: #### L 502.0500, L503.6150, L503.0106, L503.6550, L3100.1725 ####[facility] [address] [place], [place], [id number] Folate, RBC 1050 ng/mL Normal >498 [facility] Comment on above: Result Comment: Perf ormed at: [facility] [address] [id number] Director: Jaxon Dunham PhD, Phone: [phone] Performed By: #### L 502.0500, L503.6150, L503.0106, L503.6550, L3100.1725 ####[facility] [address] [place], [place], [id number] Hematocrit (Bld) [Volume fraction] 34.1 % Normal 34.0-46.6 [facility] Comment on above: Performed By: #### L 502.0500, L503.6150, L503.0106, L503.6550, L3100.1725 ####[facility] [address] [place], [place], [address] Erythrocyte folate measureme nt with hematocritOrdered By: Paresh Arellano on 03-01-2025 Hematocrit (Bld) [Volume fraction] 34.1 % 34.0-46.6 [facility] Ferritinon 03-01-2025 Ferritin [Mass/Vol] 108 ng/mL Normal 22-378 [facility] Comment on above: Performed By: #### L 502.0500, L503.6150, L503.0106, L503.6550, L3100.1725 ####[facility] [address] [place], [address] Ironon 03-01-2025 Iron [Mass/Vol] 16 ug/dL Low 50-170 [facility] Comment on above: Performed By: #### L 502.0500, L503.6150, L503.0106, L503.6550, L3100.1725 ####[facility] [address] [place], [address] Iron measurement (mass/mass) Ordered By: Paresh Arellano on 03-01-2025 Iron (Unsp spec) [Mass/Mass] 16 ug/dL Low 50-170 [facility] Microalb:Creat Ratio,Random URon 03-01-2025 MALB:CREAT Normal <30 mg/g CRE [facility] Comment on above: Result Comment: WRON G Performed By: #### L 502.0250 ####[facility] [address] [place], [address] MICROALBUMIN,UR Normal <20 mg/L [facility] Comment on above: Result Comment: WRON G Performed By: #### L 502.0250 ####[facility] [address] [place], [address] UR CREAT Normal 28.00-217.00 [facility] Comment on above: Result Comment: WRON G Performed By: #### L 502.0250 ####[facility] [address] [place], [address] Microalbumin,Random Urineon 03-01-2025 MICROALBUMIN,UR < 12.0 Normal <20 mg/L [facility] Comment on above: Performed By: #### L 502.0500, L503.6150, L503.0106, L503.6550, L3100.1725 ####[facility] [address] [place], [address] Neurology Visit Reporton Neurology Visit Report Normal [facility] Serum or plasma ferritin arnulfo surement (mass/volume)Ordered By: Paresh Arellano on 03-01-2025 Ferritin [Mass/Vol] 108 ng/mL [address] [facility] Urine albumin measurement wi th detection limit of 20 mg/L or less (mass/volume)Ordered By: Paresh Arellano on 03-01-2025 Albumin DL <= 20 mg/L (U) [Mass/Vol] < 12.0 mg/L <20 mg/L [facility] Vitamin B12on 03-01-2025 Cobalamin (Vitamin B12) [Mass/Vol] 339 pg/mL Normal 180-914 [facility] Comment on above: Performed By: #### L 502.0500, L503.6150, L503.0106, L503.6550, L3100.1725 ####[facility] [address] [place], [place], [id number] Vitamin B12 ser/plasOrdered By: Paresh Arellano on 03-01-2025 Cobalamin (Vitamin B12) [Mass/Vol] 339 pg/mL 180-914 [facility] Topiramate, Serumon 02-23-20 TOPIRAMATE 13.4 ug/mL Normal 2.0-25.0 [facility] Comment on above: Result Comment: Dete ction Limit = 1.5Performed at: [facility] [address] [id number] Director: Gino Serrano MD, Phone: [phone] Performed By: #### L 100.0500, L501.5200, L3380.1400, L500.4050 ####[facility] [address] [place], [place], [id number] Ammoniaon 02-18-2025 Ammonia (P) [Moles/Vol] 17.6 umol/L Normal 11- [facility] Comment on above: Performed By: #### L 503.5510 ####[facility] [address] [place], [address] Anion gap in Serum or Plasma Ordered By: Paresh Arellano on 02-18-2025 Anion gap [Moles/Vol] 10 mmol/L 5-15 [facility] BUN/creatinine ratioOrdered By: Paresh Arellano on 02-18-2025 Urea nitrogen/Creatinine [Mass ratio] 30.6 mg/mg High 10-20 [facility] Bilirubin, totalOrdered By: Paresh Arellano on 02-18-2025 Bilirubin [Mass/Vol] 0.27 mg/dL 0.00-1.[address] [facility] CBC-Complete Blood Cnt No Di ffon 02-18-2025 Erythrocyte distribution width (RBC) [Ratio] 14.9 % High 11.6-14.6 [facility] Comment on above: Performed By: #### L 100.0500, L501.5200, L3380.1400, L500.4050 ####[facility] [address] [place], [address] Hematocrit (Bld) [Volume fraction] 33.2 % Low 37-47 [facility] Comment on above: Performed By: #### L 100.0500, L501.5200, L3380.1400, L500.4050 ####[facility] [address] [place], [address] Hemoglobin (Bld) [Mass/Vol] 10.0 g/dL Low 12.0-15.0 [facility] Comment on above: Performed By: #### L 100.0500, L501.5200, L3380.1400, L500.4050 ####[facility] [address] [place], [address] MCH (RBC) [Entitic mass] 25.6 pg Low 27.0-32.0 [facility] Comment on above: Performed By: #### L 100.0500, L501.5200, L3380.1400, L500.4050 ####[facility] [address] [place], [address] MCHC (RBC) [Mass/Vol] 30.1 g/dL Low 32-36 [facility] Comment on above: Performed By: #### L 100.0500, L501.5200, L3380.1400, L500.4050 ####[facility] [address] [place], [address] MCV (RBC) [Entitic vol] 85.1 fL Normal 81-99 [facility] Comment on above: Performed By: #### L 100.0500, L501.5200, L3380.1400, L500.4050 ####[facility] [address] [place], [address] Platelet mean volume (Bld) [Entitic vol] 9.9 fL Normal 6.2-12.0 [facility] Comment on above: Performed By: #### L 100.0500, L501.5200, L3380.1400, L500.4050 ####[facility] [address] [place], [address] Platelets (Bld) [#/Vol] 420 10*3/uL Normal 150-450 [facility] Comment on above: Performed By: #### L 100.0500, L501.5200, L3380.1400, L500.4050 ####[facility] [address] [place], [address] RBC (Bld) [#/Vol] 3.90 10*6/uL Low 4.2-5.4 [facility] Comment on above: Performed By: #### L 100.0500, L501.5200, L3380.1400, L500.4050 ####[facility] [address] [place], [address] RDW SD 46.0 fl High 35.1-43.9 [facility] Comment on above: Performed By: #### L 100.0500, L501.5200, L3380.1400, L500.4050 ####[facility] [address] [place], [address] WBC (Bld) [#/Vol] 7.9 10*3/uL Normal 4.4-11.0 [facility] Comment on above: Performed By: #### L 100.0500, L501.5200, L3380.1400, L500.4050 ####[facility] [address] [place], [address] Carbon dioxide, total [Moles /volume] in Central venous bloodOrdered By: Paresh Arellano on 02-18-2025 CO2 [Moles/Vol] 20.9 mmol/L Low 21.0-32.0 [facility] Chloride assayOrdered By: Ra stephanie Arellano on 02-18-2025 Chloride [Moles/Vol] 108 mmol/L 98-[address] [facility] Comprehensive Metabolic Prof ilon 02-18-2025 Albumin [Mass/Vol] 3.7 g/dL Normal 3.4-4.8 [facility] Comment on above: Performed By: #### L 100.0500, L501.5200, L3380.1400, L500.4050 ####[facility] [address] [place], [address] Albumin/Globulin [Mass ratio] 0.9 {ratio} Normal 0.9-2.4 [facility] Comment on above: Performed By: #### L 100.0500, L501.5200, L3380.1400, L500.4050 ####[facility] [address] [place], [address] ALK PHOS 118 U/L High 35-104 [facility] Comment on above: Performed By: #### L 100.0500, L501.5200, L3380.1400, L500.4050 ####[facility] [address] [place], [address] ALT [Catalytic activity/Vol] 12 U/L Normal <=34 [facility] Comment on above: Performed By: #### L 100.0500, L501.5200, L3380.1400, L500.4050 ####[facility] [address] [place], [address] AST [Catalytic activity/Vol] 15 U/L Normal <=31 [facility] Comment on above: Performed By: #### L 100.0500, L501.5200, L3380.1400, L500.4050 ####[facility] [address] [place], [address] Bilirubin [Mass/Vol] 0.27 mg/dL Normal 0.00-1.[address] [facility] Comment on above: Performed By: #### L 100.0500, L501.5200, L3380.1400, L500.4050 ####[facility] [address] [place], [address] BUN/CRE 30.6 RATIO High 10-20 [facility] Comment on above: Performed By: #### L 100.0500, L501.5200, L3380.1400, L500.4050 ####[facility] [address] [place], [address] Calcium [Mass/Vol] 9.7 mg/dL Normal 7.6-11.0 [facility] Comment on above: Performed By: #### L 100.0500, L501.5200, L3380.1400, L500.4050 ####[facility] [address] [place], [address] Chloride [Moles/Vol] 108 mmol/L Normal 98-[address] [facility] Comment on above: Performed By: #### L 100.0500, L501.5200, L3380.1400, L500.4050 ####[facility] [address] [place], [address] CO2 [Moles/Vol] 20.9 mmol/L Low 21.0-32.0 [facility] Comment on above: Performed By: #### L 100.0500, L501.5200, L3380.1400, L500.4050 ####[facility] [address] [place], [address] Creatinine [Mass/Vol] 0.72 mg/dL Normal 0.70-1.20 [facility] Comment on above: Performed By: #### L 100.0500, L501.5200, L3380.1400, L500.4050 ####[facility] [address] [place], [address] GAP 10 Normal 5-15 [facility] Comment on above: Performed By: #### L 100.0500, L501.5200, L3380.1400, L500.4050 ####[facility] [address] [place], [address] GFR/1.73 sq M.predicted among non-blacks MDRD (S/P/Bld) [Vol rate/Area] 92 mL/min/{1.73_m2} Normal >60 [facility] Comment on above: Result Comment: mL/m in/1.73m2 CKD-EPI Creatinine Equation (2020) Performed By: #### L 100.0500, L501.5200, L3380.1400, L500.4050 ####[facility] [address] [place], [address] Globulin (S) [Mass/Vol] 3.9 g/dL Normal 2.2-4.2 [facility] Comment on above: Performed By: #### L 100.0500, L501.5200, L3380.1400, L500.4050 ####[facility] [address] [place], [address] Glucose [Mass/Vol] 160 mg/dL High 70-99 [facility] Comment on above: Performed By: #### L 100.0500, L501.5200, L3380.1400, L500.4050 ####[facility] [address] [place], [address] Potassium [Moles/Vol] 4.2 mmol/L Normal 3.3-5.1 [facility] Comment on above: Performed By: #### L 100.0500, L501.5200, L3380.1400, L500.4050 ####[facility] [address] [place], [address] Sodium [Moles/Vol] 140 mmol/L Normal 133-145 [facility] Comment on above: Performed By: #### L 100.0500, L501.5200, L3380.1400, L500.4050 ####[facility] [address] [place], [address] T PROT 7.5 g/dL Normal 5.9-8.4 [facility] Comment on above: Performed By: #### L 100.0500, L501.5200, L3380.1400, L500.4050 ####[facility] [address] [place], [address] Urea nitrogen [Mass/Vol] 22 mg/dL High 4-19 [facility] Comment on above: Performed By: #### L 100.0500, L501.5200, L3380.1400, L500.4050 ####[facility] [address] [place], [address] Erythrocyte distribution wid th ratioOrdered By: Paresh Arellano on 02-18-2025 Erythrocyte distribution width (RBC) [Ratio] 14.9 % High 11.6-14.6 [facility] Erythrocyte distribution wid th standard deviationOrdered By: Paresh Arellano on 02-18-2025 Erythrocyte distribution width (RBC) [Ratio] 46.0 fl High 35.1-43.9 [facility] Glomerular filtration rate ( GFR) estimation/1.73 sq m using serum, plasma, or whole bOrdered By: Paresh Arellano on 02-18-2025 GFR/1.73 sq M.predicted among non-blacks MDRD (S/P/Bld) [Vol rate/Area] 92 mL/min/{1.73_m2} >60 [facility] Comment on above: mL/min/1.73m2 CKD-EP I Creatinine Equation (2020) Hematocrit Auto (Bld) [Volum e fraction]Ordered By: Paresh Arellano on 02-18-2025 Hematocrit (Bld) [Volume fraction] 33.2 % Low 37-47 [facility] Hemoglobin measurementOrdere d By: Paresh Arellano on 02-18-2025 Hemoglobin (Bld) [Mass/Vol] 10.0 g/dL Low 12.0-15.0 [facility] Laboratory - Chemistry and C hemistry - challengeOrdered By: Paresh Arellano on 02-18-2025 AST [Catalytic activity/Vol] 15 U/L <32 [facility] MCV (mean corpuscular volume ) determinationOrdered By: Paresh Arellano on 02-18-2025 MCV (RBC) [Entitic vol] 85.1 fL 81-99 [facility] Magnesiumon 02-18-2025 Magnesium [Mass/Vol] 2.0 mg/dL Normal 1.5-2.[address] [facility] Comment on above: Performed By: #### L 100.0500, L501.5200, L3380.1400, L500.4050 ####[facility] [address] [place], [address] Magnesium measurement (mass/ volume)Ordered By: Paresh Arellano on 02-18-2025 Magnesium (Unsp spec) [Mass/Vol] 2.0 mg/dL 1.5-2.2 [facility] Mean corpuscular hemoglobin (MCH) determinationOrdered By: Paresh Arellano on 02-18-2025 MCH (RBC) [Entitic mass] 25.6 pg Low 27.0-32.0 [facility] Mean corpuscular hemoglobin concentration (MCHC) determinationOrdered By: Paresh Arellano on 02-18-2025 MCHC (RBC) [Mass/Vol] 30.1 g/dL Low 32-36 [facility] Mean platelet volume determi nationOrdered By: Paresh Arellano on 02-18-2025 Platelet mean volume (Bld) [Entitic vol] 9.9 fL 6.2-12.0 [facility] Platelet countOrdered By: Ra stephanie Arellano on 02-18-2025 Platelets (Bld) [#/Vol] 420 10*3/uL 150-450 [facility] Potassium measurement (mass/ volume)Ordered By: Paresh Arellano on 02-18-2025 Potassium (Unsp spec) [Mass/Vol] 4.2 mmol/L 3.3-5.1 [facility] RBC Auto (Bld) [#/Vol]Ordere d By: Paresh Arellano on 02-18-2025 RBC (Bld) [#/Vol] 3.90 10*6/uL Low 4.2-5.4 [facility] Serum creatinine measurement (mass/volume)Ordered By: Paresh Arellano on 02-18-2025 Creatinine [Mass/Vol] 0.72 mg/dL 0.70-1.20 [facility] Serum globulin measurementOr dered By: Paresh Arellano 02-18-2025 Globulin (S) [Mass/Vol] 3.9 g/dL 2.2-4.2 [facility] Serum glucose measurement (m ass/volume)Ordered By: Paresh Arellano on 02-18-2025 Glucose [Mass/Vol] 160 mg/dL High 70-99 [facility] Serum or plasma alanine monroe otransferase (ALT) measurementOrdered By: Paresh Arellano 02-18-2025 ALT [Catalytic activity/Vol] 12 U/L <35 [facility] Serum or plasma albumin digna urement (mass/volume)Ordered By: Paresh Arellano 02-18-2025 Albumin [Mass/Vol] 3.7 g/dL 3.4-4.8 [facility] Serum or plasma albumin/glob ulin mass ratioOrdered By: Paresh Arellano on 02-18-2025 Albumin/Globulin [Mass ratio] 0.9 {ratio} 0.9-2.4 [facility] Serum or plasma alkaline rudy sphatase measurementOrdered By: Paresh Arellano on 02-18-2025 ALP [Catalytic activity/Vol] 118 U/L High 35-104 [facility] Serum or plasma calcium digna urement (mass/volume)Ordered By: Paresh Arellano on 02-18-2025 Calcium [Mass/Vol] 9.7 mg/dL 7.6-11.0 [facility] Serum or plasma topiramate m easurement (mass/volume)Ordered By: Paresh Arellano on 02-18-2025 Topiramate [Mass/Vol] 13.4 ug/mL 2.0-25.0 [facility] Comment on above: Detection Limit = 1. 5Performed at: Managed by Q - [facility] [address] [id number] Director: Gino Serrano MD, Phone: [phone] Serum or plasma urea nitroge n measurement (mass/volume)Ordered By: Paresh Arellano on 02-18-2025 Urea nitrogen [Mass/Vol] 22 mg/dL High 4-19 [facility] Sodium levelOrdered By: Tobi Arellano on 02-18-2025 Sodium [Moles/Vol] 140 mmol/L 133-145 [facility] Total proteinOrdered By: Elliot Arellano on 02-18-2025 Protein [Mass/Vol] 7.5 g/dL 5.9-8.4 [facility] Venous blood ammonia measure mentOrdered By: Paresh Arellano on 02-18-2025 Ammonia (P) [Moles/Vol] 17.6 umol/L 11-51 [facility] White blood cell (WBC) count Ordered By: Paresh Arellano on 02-18-2025 WBC (Bld) [#/Vol] 7.9 10*3/uL 4.4-11.0 [facility] Neurology Visit Reporton Neurology Visit Report Normal [facility] Internal Medicine Office Vis iton 11-01-2024 Internal Medicine Office Visit Normal [facility] Culture, Anaerobic Any Sourc cha 10-30-2024 CUAN Normal [facility] Comment on above: Performed By: #### M 100.3000, M100.4001, M100.1999 ####[facility] [address] [place], [address] Wound Cultureon 10-30-2024 WC Normal [facility] Comment on above: Performed By: #### M 100.3000, M100.4001, M1.1999 ####[facility] [address] [place], [address] Gram Stainon 10-28-2024 GS LEFT HEEL Gram Stain 2+ Gram positive cocci Rare Gram positive rods Rare White Blood Cells No Epithelial cells Normal [facility] Comment on above: Performed By: #### M 100.3000, M100.4001, M100.1999 ####[facility] [address] [place], [address] Anaerobic cultureOrdered By: Thompson Wright on 10-27-2024 Bacteria identified Anaer cx Nom (Unsp spec) Anaerobic cocci Abnormal [facility] Bacteria identified Anaer cx Nom (Unsp spec)Ordered By: Thompson Wright on 10-27-2024 Anaerobic Culture Anaerobic cocci Abnormal [facility] Gram stainOrdered By: Jh Wright on 10-27-2024 Microscopic observation Gram stain Nom (Unsp spec) [facility] Routine wound cultureOrdered By: Thompson Wright on 10-27-2024 Microbial culture, routine Morganella morganii sp morgani Abnormal [facility] Microbial culture, routine Staphylococcus epidermidis Abnormal [facility] Microbial culture, routine Meth. resistant Staph. aureus Abnormal [facility] Wound Culture Morganella morganii sp morgani Abnormal [facility] Wound Culture Staphylococcus epidermidis Abnormal [facility] Wound Culture Meth. resistant Stap h. aureus Abnormal [facility] Bedside Glucoseon 10-01-2024 FINGERSTICK GLU 153 mg/dL High 74-106 [facility] Comment on above: Result Comment: MORGAN BROWNLEE OF PATIENT CARE PER NURSING PROTOCOL Performed By: #### L 501.080 ####[facility] [address] [place], [place], [id number] Frozen Section (charge)on Frozen Section (charge) Normal [facility] Comment on above: Performed By: #### P FSC ####[facility] [address] [place], [place], [id number] Glucose measurement at [facility] deOrdered By: Thompson Wright on 10-01-2024 Bedside Glucose (Misc Panel) 153 mg/dL High 74-106 [facility] Comment on above: MANAGEMENT OF PATIEN T CARE PER NURSING PROTOCOL Glucose [Mass/Vol] 153 mg/dL High 74-106 [facility] Comment on above: MANAGEMENT OF PATIEN T CARE PER NURSING PROTOCOL MR/POSTOP.ANEon 10-01-2024 MR/POSTOP.ANE Normal [facility] Operative Reporton Operative Report Normal [facility] MR/PAT.ANEon 09-30-2024 MR/PAT.ANE Normal [facility] Topiramate, Serumon 09-27-19 TOPIRAMATE 14.1 ug/mL Normal 2.0-25.0 [facility] Comment on above: Result Comment: Dete ction Limit = 1.5Performed at: [facility] [place] [id number] Director: Gino Serrano MD, Phone: [phone] Performed By: #### L 3380.1400 ####[facility] [address] [place], [place], [address] Serum or plasma topiramate m easurement (mass/volume)Ordered By: Paresh Arellano on 09-23-2024 Topiramate [Mass/Vol] 14.1 ug/mL 2.0-25.0 [facility] Comment on above: Detection Limit = 1. 5Performed at: [employer] [place], [place] [id number] Director: Gino Serrano MD, Phone: [phone] Topiramate [Mass/Vol]Ordered By: Paresh Arellano on 09-23-2024 Topiramate Level 14.1 ug/mL 2.0-25.0 [facility] Comment on above: Detection Limit = 1. 5Performed at: [facility] [address] [id number] Director: Gino Serrano MD, Phone: [phone] Hemoglobin A1con 09-19-2024 HbA1c (Bld) [Mass fraction] 7.3 % High 3.8-5.6 [facility] Comment on above: Result Comment: Norm al < 5.7 % Prediabetic 5.7 - 6.4 % Diabetic >or= 6.5 % Please note range changes. Performed By: #### L 100.0100, L501.9985, L500.4050, L506.1000 ####[facility] [address] [place], [address] 13-FZ-Eyhqsgi DOrdered By: Rach Herrera on 09-17-2024 Vitamin D 25-Hydroxy 28.1 ng/mL [facility] Comment on above: Vitamin D 25(OH) Sta tus Range Deficiency <20 ng/mL (50nmol/L) Insufficiency 20 - 30 ng/mL (50 - 75 nmol/L) Sufficiency 30 - 100 ng/mL (75 - 250 nmol/L) Toxicity >100 ng/mL (>250 nmol/L) Absolute lymphocyte countOrd ered By: Danny Herrera on 09-17-2024 Lymphocytes Auto (Unsp spec) [#/Vol] 1.79 10*3/uL 0.83-4.51 [facility] Absolute neutrophil countOrd ered By: Danny Herrera on 09-17-2024 Neutrophils (Bld) [#/Vol] 6.2 10*3/uL 2.0-7.7 [facility] Albumin to globulin ratioOrd ered By: Danny Herrera on 09-17-2024 Albumin/Globulin [Mass ratio] 0.7 {ratio} Low 0.9-2.4 [facility] Automated lymphocyte count a s percentage of total leukocytesOrdered By: Danny Herrera on 02-07-2025 Lymphocytes/100 WBC Auto (Unsp spec) 19.4 % - [facility] Basophil percentageOrdered B y: Danny Herrera on 09-17-2024 Basophils/100 WBC (Bld) 0.3 % 0-1 [facility] Bilirubin, totalOrdered By: Danny Herrera on 09-17-2024 Bilirubin [Mass/Vol] 0.30 mg/dL 0.20-1.[address] [facility] Comment on above: For patients on eltr ombopag therapy, use of Dimension Upperglade TBIL is not recommended. Blood urea nitrogen (BUN)/cr eatinine ratioOrdered By: Danny Herrera on 09-17-2024 Urea nitrogen/Creatinine [Mass ratio] 37.2 mg/mg High 10- [facility] CBC W/Diff, Automatedon Absolute Lymph 1.79 X10 3/uL Normal 0.83-4.51 [facility] Comment on above: Performed By: #### L 100.0100, L501.9985, L500.4050, L506.1000 ####[facility] [address] [place], [address] Absolute Neut 6.2 X10 3/uL Normal 2.0-7.7 [facility] Comment on above: Performed By: #### L 100.0100, L501.9985, L500.4050, L506.1000 ####[facility] [address] [place], [address] Basophils/100 WBC (Bld) 0.3 % Normal 0-1 [facility] Comment on above: Performed By: #### L 100.0100, L501.9985, L500.4050, L506.1000 ####[facility] [address] [place], [address] Eosinophils/100 WBC (Bld) 5.0 % Normal 0-5 [facility] Comment on above: Performed By: #### L 100.0100, L501.9985, L500.4050, L506.1000 ####[facility] [address] [place], [address] Erythrocyte distribution width (RBC) [Ratio] 14.6 % Normal 11.6-14.6 [facility] Comment on above: Performed By: #### L 100.0100, L501.9985, L500.4050, L506.1000 ####[facility] [address] [place], [address] Hematocrit (Bld) [Volume fraction] 38.6 % Normal 37-47 [facility] Comment on above: Performed By: #### L 100.0100, L501.9985, L500.4050, L506.1000 ####[facility] [address] [place], [address] Hemoglobin (Bld) [Mass/Vol] 11.6 g/dL Low 12.0-15.0 [facility] Comment on above: Performed By: #### L 100.0100, L501.9985, L500.4050, L506.1000 ####[facility] [address] [place], [address] IG% 0.300 Normal 0.0-0.9 [facility] Comment on above: Result Comment: IG% - Immature Granulocytes (promyelocytes, myelocytes andmetamyelocytes) > 1% indicates that a LEFT SHIFT is Present. Performed By: #### L 100.0100, L501.9985, L500.4050, L506.1000 ####[facility] [address] [place], [address] Lymphocytes/100 WBC (Bld) 19.4 % Normal 19-41 [facility] Comment on above: Performed By: #### L 100.0100, L501.9985, L500.4050, L506.1000 ####[facility] [address] [place], [address] MCH (RBC) [Entitic mass] 25.7 pg Low 27.0-32.0 [facility] Comment on above: Performed By: #### L 100.0100, L501.9985, L500.4050, L506.1000 ####[facility] [address] [place], [address] MCHC (RBC) [Mass/Vol] 30.1 g/dL Low 32-36 [facility] Comment on above: Performed By: #### L 100.0100, L501.9985, L500.4050, L506.1000 ####[facility] [address] [place], [address] MCV (RBC) [Entitic vol] 85.6 fL Normal 81-99 [facility] Comment on above: Performed By: #### L 100.0100, L501.9985, L500.4050, L506.1000 ####[facility] [address] [place], [address] Monocytes/100 WBC (Bld) 7.4 % Normal 0-10 [facility] Comment on above: Performed By: #### L 100.0100, L501.9985, L500.4050, L506.1000 ####[facility] [address] [place], [address] Neutrophils/100 WBC (Bld) 67.6 % Normal 47-70 [facility] Comment on above: Performed By: #### L 100.0100, L501.9985, L500.4050, L506.1000 ####[facility] [address] [place], [address] Nucleated RBC (Bld) [#/Vol] 0 10*3/uL Normal 0-5 [facility] Comment on above: Performed By: #### L 100.0100, L501.9985, L500.4050, L506.1000 ####[facility] [address] [place], [address] Platelet mean volume (Bld) [Entitic vol] 10.5 fL Normal 6.2-12.0 [facility] Comment on above: Performed By: #### L 100.0100, L501.9985, L500.4050, L506.1000 ####[facility] [address] [place], [address] Platelets (Bld) [#/Vol] 470 10*3/uL High 150-450 [facility] Comment on above: Performed By: #### L 100.0100, L501.9985, L500.4050, L506.1000 ####[facility] [address] [place], [address] RBC (Bld) [#/Vol] 4.51 10*6/uL Normal 4.2-5.4 [facility] Comment on above: Performed By: #### L 100.0100, L501.9985, L500.4050, L506.1000 ####[facility] [address] [place], [address] RDW SD 45.7 fl High 35.1-43.9 [facility] Comment on above: Performed By: #### L 100.0100, L501.9985, L500.4050, L506.1000 ####[facility] [address] [place], [address] WBC (Bld) [#/Vol] 9.2 10*3/uL Normal 4.4-11.0 [facility] Comment on above: Performed By: #### L 100.0100, L501.9985, L500.4050, L506.1000 ####[facility] [address] [place], [address] Carbon dioxide measurementOr dered By: Danny Herrera on 09-17-2024 CO2 [Moles/Vol] 22.0 mmol/L 21.0-32.0 [facility] Chloride measurementOrdered By: Danny Herrera on 09-17-2024 Chloride [Moles/Vol] 111 mmol/L High 98-[address] [facility] Comprehensive Metabolic Prof ilon 09-17-2024 Albumin [Mass/Vol] 3.4 g/dL Normal 3.2-5.0 [facility] Comment on above: Performed By: #### L 100.0100, L501.9985, L500.4050, L506.1000 ####[facility] [address] [place], [address] Albumin/Globulin [Mass ratio] 0.7 {ratio} Low 0.9-2.4 [facility] Comment on above: Performed By: #### L 100.0100, L501.9985, L500.4050, L506.1000 ####[facility] [address] [place], [address] ALK P 109 U/L Normal 45-117 [facility] Comment on above: Performed By: #### L 100.0100, L501.9985, L500.4050, L506.1000 ####[facility] [address] [place], [address] ALT [Catalytic activity/Vol] 12 U/L Low 13-56 [facility] Comment on above: Performed By: #### L 100.0100, L501.9985, L500.4050, L506.1000 ####[facility] [address] [place], [address] AST [Catalytic activity/Vol] 7 U/L Low 15-37 [facility] Comment on above: Performed By: #### L 100.0100, L501.9985, L500.4050, L506.1000 ####[facility] [address] [place], [address] Bilirubin [Mass/Vol] 0.30 mg/dL Normal 0.20-1.[address] [facility] Comment on above: Result Comment: For patients on eltrombopag therapy, use of Dimension Upperglade TBIL is not recommended. Performed By: #### L 100.0100, L501.9985, L500.4050, L506.1000 ####[facility] [address] [place], [address] BUN/CRE 37.2 RATIO High 10-20 [facility] Comment on above: Performed By: #### L 100.0100, L501.9985, L500.4050, L506.1000 ####[facility] [address] [place], [address] CA,Total 10.2 mg/dL High 8.5-10.1 [facility] Comment on above: Performed By: #### L 100.0100, L501.9985, L500.4050, L506.1000 ####[facility] [address] [place], [address] Chloride [Moles/Vol] 111 mmol/L High 98-[address] [facility] Comment on above: Performed By: #### L 100.0100, L501.9985, L500.4050, L506.1000 ####[facility] [address] [place], [address] CO2 [Moles/Vol] 22.0 mmol/L Normal 21.0-32.0 [facility] Comment on above: Performed By: #### L 100.0100, L501.9985, L500.4050, L506.1000 ####[facility] [address] [place], [address] Creatinine [Mass/Vol] 0.83 mg/dL Normal 0.55-1.02 [facility] Comment on above: Result Comment: The validity of the calculated GFR GFRAA in patients over70 years has not been determined. Clinical correlation isessential. Performed By: #### L 100.0100, L501.9985, L500.4050, L506.1000 ####[facility] [address] [place], [address] EST GFR - AA 88 mL/min Normal >60 [facility] Comment on above: Result Comment: Afri can German GFR Calc Performed By: #### L 100.0100, L501.9985, L500.4050, L506.1000 ####[facility] [address] [place], [address] GAP 10 Normal 5-15 [facility] Comment on above: Performed By: #### L 100.0100, L501.9985, L500.4050, L506.1000 ####[facility] [address] [place], [address] GFR/1.73 sq M.predicted among non-blacks MDRD (S/P/Bld) [Vol rate/Area] 72 mL/min/{1.73_m2} Normal >60 [facility] Comment on above: Result Comment: Non- GFR Calc Performed By: #### L 100.0100, L501.9985, L500.4050, L506.1000 ####[facility] [address] [place], [address] Globulin (S) [Mass/Vol] 4.8 g/dL High 2.2-4.2 [facility] Comment on above: Performed By: #### L 100.0100, L501.9985, L500.4050, L506.1000 ####[facility] [address] [place], [address] Glucose [Mass/Vol] 189 mg/dL High 74-106 [facility] Comment on above: Result Comment: Fast ing Glucose result greater than or equal to 126 mg/dLsuggests DIABETES MELLITUS per A.D.A. criteria. Performed By: #### L 100.0100, L501.9985, L500.4050, L506.1000 ####[facility] [address] [place], [address] Potassium [Moles/Vol] 4.5 mmol/L Normal 3.5-5.1 [facility] [facility] Comment on above: Performed By: #### L 100.0100, L501.9985, L500.4050, L506.1000 ####[facility] [address] [place], [address] Sodium [Moles/Vol] 143 mmol/L Normal 136-145 [facility] Comment on above: Performed By: #### L 100.0100, L501.9985, L500.4050, L506.1000 ####[facility] [address] [place], [address] T PROT 8.2 g/dL Normal 6.4-8.2 [facility] Comment on above: Performed By: #### L 100.0100, L501.9985, L500.4050, L506.1000 ####[facility] [address] [place], [address] Urea nitrogen [Mass/Vol] 31 mg/dL High 7-18 [facility] Comment on above: Performed By: #### L 100.0100, L501.9985, L500.4050, L506.1000 ####[facility] [address] [place], [address] Eosinophil percentageOrdered By: Danny Herrera on 09-17-2024 Eosinophils/100 WBC (Bld) 5.0 % 0-5 [facility] Erythrocyte distribution wid th ratioOrdered By: Danny Herrera on 09-17-2024 Erythrocyte distribution width (RBC) [Ratio] 14.6 % 11.6-14.6 [facility] Erythrocyte distribution wid th standard deviationOrdered By: Danny Herrera on 09-17-2024 Erythrocyte distribution width (RBC) [Entitic vol] 45.7 fL High 35.1-43.9 [facility] Erythrocyte distribution width (RBC) [Ratio] 45.7 fl High 35.1-43.9 [facility] Estimated glomerular filtrat ion rate (GFR) AmericanOrdered By: Danny Herrera on 09-17-2024 Estimated GFR (MDRD) Amer 88 mL/min >60 [facility] Comment on above: GFR Calc Glomerular filtration rate ( GFR) estimationOrdered By: Danny Herrera on 09-17-2024 Estimated GFR (MDRD) Non-Af Amer 72 mL/min >60 [facility] Comment on above: Non- GFR Calc GFR/1.73 sq M.predicted among non-blacks MDRD (S/P/Bld) [Vol rate/Area] 72 mL/min/{1.73_m2} >60 [facility] Comment on above: Non- GFR Calc Glucose measurementOrdered B y: Danny Herrera on 09-17-2024 Glucose [Mass/Vol] 189 mg/dL High 74-106 [facility] Comment on above: Fasting Glucose resu lt greater than or equal to 126 mg/dL suggests DIABETES MELLITUS per A.D.A. criteria. Hematocrit Auto (Bld) [Volum e fraction]Ordered By: Danny Herrera on 09-17-2024 Hematocrit (Bld) [Volume fraction] 38.6 % 37-47 [facility] Hemoglobin A1c percentageOrd ered By: Danny Herrera on 09-17-2024 HbA1c (Bld) [Mass fraction] 7.3 % High 3.8-5.6 [facility] Comment on above: Normal < 5.7 % Predi abetic 5.7 - 6.4 % Diabetic >or= 6.5 % Please note range changes. Hemoglobin measurementOrdere d By: Danny Herrera on 09-17-2024 Hemoglobin (Bld) [Mass/Vol] 11.6 g/dL Low 12.0-15.0 [facility] Immature granulocytes/100 WB C Auto (Bld)Ordered By: Danny Herrera on 09-17-2024 Immature granulocytes/100 WBC (Bld) 0.300 % 0.0-0.9 [facility] Comment on above: IG% - Immature Granu locytes (promyelocytes, myelocytes and metamyelocytes) > 1% indicates that a LEFT SHIFT is Present. Internal Medicine Office Vis iton 09-17-2024 Internal Medicine Office Visit Normal [facility] Laboratory - Chemistry and C hemistry - challengeOrdered By: Danny Herrera on 09-17-2024 AST [Catalytic activity/Vol] 7 U/L Low 15-37 [facility] Lymphocytes Auto (Unsp spec) [#/Vol]Ordered By: Dayobillingsleyjorge Herrera on 09-17-2024 Lymphocytes (Bld) [#/Vol] 1.79 10*3/uL 0.83-4.51 [facility] Lymphocytes/100 WBC Auto (Un sp spec)Ordered By: Danny Herrera on 09-17-2024 Lymphocytes/100 WBC (Bld) 19.4 % 19-41 [facility] MCV (mean corpuscular volume ) determinationOrdered By: Danny Herrera on 09-17-2024 MCV (RBC) [Entitic vol] 85.6 fL 81-99 [facility] Mean corpuscular hemoglobin (MCH) determinationOrdered By: Danny Herrera on 09-17-2024 MCH (RBC) [Entitic mass] 25.7 pg Low 27.0-32.0 [facility] Mean corpuscular hemoglobin concentration (MCHC) determinationOrdered By: orinbillingsleyjorge Herrera on 09-17-2024 MCHC (RBC) [Mass/Vol] 30.1 g/dL Low 32-36 [facility] Mean platelet volume determi nationOrdered By: Danny Herrera on 09-17-2024 Platelet mean volume (Bld) [Entitic vol] 10.5 fL 6.2-12.0 [facility] Monocyte percentageOrdered B y: Danny Herrera on 09-17-2024 Monocytes/100 WBC (Bld) 7.4 % 0-10 [facility] Neutrophil percentageOrdered By: Danny Herrera on 09-17-2024 Neutrophils/100 WBC (Bld) 67.6 % 47-70 [facility] Nucleated red blood cell per centageOrdered By: Danny Herrera on 09-17-2024 Nucleated RBC/100 WBC (Bld) [Ratio] 0 % 0-5 [facility] Platelet countOrdered By: Kali Herrera on 09-17-2024 Platelets (Bld) [#/Vol] 470 10*3/uL High 150-450 [facility] Potassium measurementOrdered By: Danny Herrera on 09-17-2024 Potassium [Moles/Vol] 4.5 mmol/L 3.5-5.1 [facility] RBC Auto (Bld) [#/Vol]Ordere d By: Danny Herrera on 09-17-2024 RBC (Bld) [#/Vol] 4.51 10*6/uL 4.2-5.4 [facility] Serum anion gap measurementO rdered By: Danny Herrera on 09-17-2024 Anion gap [Moles/Vol] 10 mmol/L 5-15 [facility] Serum globulin measurementOr dered By: Danny Herrera on 09-17-2024 Globulin (S) [Mass/Vol] 4.8 g/dL High 2.2-4.2 [facility] Serum or plasma alanine monroe otransferase (ALT) measurementOrdered By: Danny Herrera on 09-17-2024 ALT [Catalytic activity/Vol] 12 U/L Low 13-56 [facility] Serum or plasma albumin digna urement (mass/volume)Ordered By: Danny Herrera on 09-17-2024 Albumin [Mass/Vol] 3.4 g/dL 3.2-5.0 [facility] Serum or plasma alkaline rudy sphatase measurementOrdered By: Danny Herrera on 09-17-2024 ALP [Catalytic activity/Vol] 109 U/L 45-117 [facility] Serum or plasma calcium digna urement (mass/volume)Ordered By: Danny Herrera on 09-17-2024 Calcium [Mass/Vol] 10.2 mg/dL High 8.5-10.1 [facility] Serum or plasma creatinine m easurement (mass/volume)Ordered By: Danny Herrera on 09-17-2024 Creatinine [Mass/Vol] 0.83 mg/dL 0.55-1.02 [facility] Comment on above: The validity of the calculated GFR & GFRAA in patients over 70 years has not been determined. Clinical correlation is essential. Serum or plasma urea nitroge n measurement (mass/volume)Ordered By: Danny Herrera on 09-17-2024 Urea nitrogen [Mass/Vol] 31 mg/dL High 7-18 [facility] Sodium levelOrdered By: Dayo Herrera on 09-17-2024 Sodium [Moles/Vol] 143 mmol/L 136-145 [facility] Total proteinOrdered By: Chet Herrera on 09-17-2024 Protein [Mass/Vol] 8.2 g/dL 6.4-8.2 [facility] Vitamin D,25 Hydroxyon 09-17 Vitamin D 25-OH 28.1 ng/mL Normal [facility] Comment on above: Result Comment: Karol min D 25(OH) Status Range Deficiency <20 ng/mL (50nmol/L) Insufficiency 20 - 30 ng/mL (50 - 75 nmol/L) Sufficiency 30 - 100 ng/mL (75 - 250 nmol/L) Toxicity >100 ng/mL (>250 nmol/L) Performed By: #### L 100.0100, L501.9985, L500.4050, L506.1000 ####[facility] [address] [place], [address] White blood cell (WBC) count Ordered By: Danny Herrera on 09-17-2024 WBC (Bld) [#/Vol] 9.2 10*3/uL 4.4-11.0 [facility] Lower Ext Joint Only W/WO Co nton 09-10-2024 Lower Ext Joint Only W/WO Cont Normal [facility] Foot min 3 Viewson 5 Foot min 3 Views Normal [facility] Wound Ctr History AND Physic homero 09-01-2024 Wound Ctr History & Physical Normal [facility] Neurology Visit Reporton Neurology Visit Report Normal [facility] Thyroidon 06-29-2024 Thyroid Normal [facility] Topiramate, Serumon 06-23-20 TOPIRAMATE 12.2 ug/mL Normal 2.0-25.0 [facility] Comment on above: Result Comment: Dete ction Limit = 1.5Performed at: [facility] [address] [id number] Director: Gino Serrano MD, Phone: [phone] Performed By: #### L 501.5200, L503.5510, L100.0500, L3380.1400, L500.4050 ####[facility] [address] [place], [address] Ammoniaon 06-21-2024 Ammonia (P) [Moles/Vol] 18.0 umol/L Normal 11-32 [facility] Comment on above: Performed By: #### L 501.5200, L503.5510, L100.0500, L3380.1400, L500.4050 ####[facility] [address] [place], [place], [id number] CBC-Complete Blood Cnt No Di ffon 06-21-2024 Erythrocyte distribution width (RBC) [Ratio] 14.4 % Normal 11.6-14.6 [facility] Comment on above: Performed By: #### L 501.5200, L503.5510, L100.0500, L3380.1400, L500.4050 ####[facility] [address] [place], [address] Hematocrit (Bld) [Volume fraction] 39.8 % Normal 37-47 [facility] Comment on above: Performed By: #### L 501.5200, L503.5510, L100.0500, L3380.1400, L500.4050 ####[facility] [address] [place], [place], [id number] Hemoglobin (Bld) [Mass/Vol] 12.2 g/dL Normal 12.0-15.0 [facility] Comment on above: Performed By: #### L 501.5200, L503.5510, L100.0500, L3380.1400, L500.4050 ####[facility] [address] [place], [address] MCH (RBC) [Entitic mass] 28.0 pg Normal 27.0-32.0 [facility] Comment on above: Performed By: #### L 501.5200, L503.5510, L100.0500, L3380.1400, L500.4050 ####[facility] [address] [place], [address] MCHC (RBC) [Mass/Vol] 30.7 g/dL Low 32-36 [facility] Comment on above: Performed By: #### L 501.5200, L503.5510, L100.0500, L3380.1400, L500.4050 ####[facility] [address] [place], [address] MCV (RBC) [Entitic vol] 91.5 fL Normal 81-99 [facility] Comment on above: Performed By: #### L 501.5200, L503.5510, L100.0500, L3380.1400, L500.4050 ####[facility] [address] [place], [address] Platelet mean volume (Bld) [Entitic vol] 10.8 fL Normal 6.2-12.0 [facility] Comment on above: Performed By: #### L 501.5200, L503.5510, L100.0500, L3380.1400, L500.4050 ####[facility] [address] [place], [address] Platelets (Bld) [#/Vol] 339 10*3/uL Normal 150-450 [facility] Comment on above: Performed By: #### L 501.5200, L503.5510, L100.0500, L3380.1400, L500.4050 ####[facility] [address] [place], [address] RBC (Bld) [#/Vol] 4.35 10*6/uL Normal 4.2-5.4 [facility] Comment on above: Performed By: #### L 501.5200, L503.5510, L100.0500, L3380.1400, L500.4050 ####[facility] [address] [place], [address] RDW SD 48.8 fl High 35.1-43.9 [facility] Comment on above: Performed By: #### L 501.5200, L503.5510, L100.0500, L3380.1400, L500.4050 ####[facility] [address] [place], [address] WBC (Bld) [#/Vol] 8.3 10*3/uL Normal 4.4-11.0 [facility] Comment on above: Performed By: #### L 501.5200, L503.5510, L100.0500, L3380.1400, L500.4050 ####[facility] [address] [place], [address] Comprehensive [facility]-21-2024 Albumin [Mass/Vol] 3.6 g/dL Normal 3.2-5.0 [facility] Comment on above: Performed By: #### L 501.5200, L503.5510, L100.0500, L3380.1400, L500.4050 ####[facility] [address] [place], [address] Albumin/Globulin [Mass ratio] 0.9 {ratio} Normal 0.9-2.4 [facility] Comment on above: Performed By: #### L 501.5200, L503.5510, L100.0500, L3380.1400, L500.4050 ####[facility] [address] [place], [address] ALK P 106 U/L Normal 45-117 [facility] Comment on above: Performed By: #### L 501.5200, L503.5510, L100.0500, L3380.1400, L500.4050 ####[facility] [address] [place], [address] ALT [Catalytic activity/Vol] 15 U/L Normal 13-56 [facility] Comment on above: Performed By: #### L 501.5200, L503.5510, L100.0500, L3380.1400, L500.4050 ####[facility] [address] [place], [address] AST [Catalytic activity/Vol] 13 U/L Low 15-37 [facility] Comment on above: Performed By: #### L 501.5200, L503.5510, L100.0500, L3380.1400, L500.4050 ####[facility] [address] [place], [address] Bilirubin [Mass/Vol] 0.40 mg/dL Normal 0.20-1.[address] [facility] Comment on above: Result Comment: For patients on eltrombopag therapy, use of Dimension Upperglade TBIL is not recommended. Performed By: #### L 501.5200, L503.5510, L100.0500, L3380.1400, L500.4050 ####[facility] [address] [place], [address] BUN/CRE 30.9 RATIO High 10-20 [facility] Comment on above: Performed By: #### L 501.5200, L503.5510, L100.0500, L3380.1400, L500.4050 ####[facility] [address] [place], [address] CA,Total 9.7 mg/dL Normal 8.5-10.1 [facility] Comment on above: Performed By: #### L 501.5200, L503.5510, L100.0500, L3380.1400, L500.4050 ####[facility] [address] [place], [address] Chloride [Moles/Vol] 116 mmol/L High 98-[address] [facility] Comment on above: Performed By: #### L 501.5200, L503.5510, L100.0500, L3380.1400, L500.4050 ####[facility] [address] [place], [address] CO2 [Moles/Vol] 19.0 mmol/L Low 21.0-32.0 [facility] Comment on above: Performed By: #### L 501.5200, L503.5510, L100.0500, L3380.1400, L500.4050 ####[facility] [address] [place], [address] Creatinine [Mass/Vol] 0.94 mg/dL Normal 0.55-1.02 [facility] Comment on above: Result Comment: The validity of the calculated GFR GFRAA in patients over70 years has not been determined. Clinical correlation isessential. Performed By: #### L 501.5200, L503.5510, L100.0500, L3380.1400, L500.4050 ####[facility] [address] [place], [address] EST GFR - AA 77 mL/min Normal >60 [facility] Comment on above: Result Comment: Afri can German GFR Calc Performed By: #### L 501.5200, L503.5510, L100.0500, L3380.1400, L500.4050 ####[facility] [address] [place], [address] GAP 6 Normal 5-15 [facility] Comment on above: Performed By: #### L 501.5200, L503.5510, L100.0500, L3380.1400, L500.4050 ####[facility] [address] [place], [address] GFR/1.73 sq M.predicted among non-blacks MDRD (S/P/Bld) [Vol rate/Area] 63 mL/min/{1.73_m2} Normal >60 [facility] Comment on above: Result Comment: Non- GFR Calc Performed By: #### L 501.5200, L503.5510, L100.0500, L3380.1400, L500.4050 ####[facility] [address] [place], [address] Globulin (S) [Mass/Vol] 3.8 g/dL Normal 2.2-4.2 [facility] Comment on above: Performed By: #### L 501.5200, L503.5510, L100.0500, L3380.1400, L500.4050 ####[facility] [address] [place], [address] Glucose [Mass/Vol] 153 mg/dL High 74-106 [facility] Comment on above: Result Comment: Fast ing Glucose result greater than or equal to 126 mg/dLsuggests DIABETES MELLITUS per A.D.A. criteria. Performed By: #### L 501.5200, L503.5510, L100.0500, L3380.1400, L500.4050 ####[facility] [address] [place], [address] Potassium [Moles/Vol] 3.7 mmol/L Normal 3.5-5.1 [facility] Comment on above: Performed By: #### L 501.5200, L503.5510, L100.0500, L3380.1400, L500.4050 ####[facility] [address] [place], [address] Sodium [Moles/Vol] 141 mmol/L Normal 136-145 [facility] Comment on above: Performed By: #### L 501.5200, L503.5510, L100.0500, L3380.1400, L500.4050 ####[facility] [address] [place], [address] T PROT 7.4 g/dL Normal 6.4-8.2 [facility] Comment on above: Performed By: #### L 501.5200, L503.5510, L100.0500, L3380.1400, L500.4050 ####[facility] [address] [place], [address] Urea nitrogen [Mass/Vol] 29 mg/dL High 7-18 [facility] Comment on above: Performed By: #### L 501.5200, L503.5510, L100.0500, L3380.1400, L500.4050 ####[facility] [address] [place], [address] Lipid Profileon 06-21-2024 Cholesterol [Mass/Vol] 242 mg/dL High 200 [facility] Comment on above: Result Comment: <200 mg/dL Desirable 200-240 mg/dL Borderline >240 mg/dL High Risk Performed By: #### L 500.4100 ####[facility] [address] [place], [address] Cholesterol in HDL [Mass/Vol] 55 mg/dL Normal [facility] Comment on above: Result Comment: The drugs N-Acetylcysteine and Metamizole may falselydepress this assay. Reference Range HDL <40 mg/dL Low HDL Cholesterol HDL >or= 60 mg/dL High HDL Cholesterol Performed By: #### L 500.4100 ####[facility] [address] [place], [address] Cholesterol in LDL [Mass/Vol] 153 mg/dL High 0-130 [facility] Comment on above: Performed By: #### L 500.4100 ####[facility] [address] [place], [address] Cholesterol in VLDL [Mass/Vol] 34 mg/dL Normal 5-40 [facility] Comment on above: Performed By: #### L 500.4100 ####[facility] [address] [place], [address] Triglyceride [Mass/Vol] 169 mg/dL Normal [facility] Comment on above: Result Comment: The drugs N-Acetylcysteine and Metamizole may falselydepress this assay.Serum Triglycerides Reference Interval Normal <150 mg/dL Borderline high 150 - 199 mg/dL High 200 - 499 mg/dL Very High > or = 500 mg/dL Performed By: #### L 500.4100 ####[facility] [address] [place], [address] Magnesiumon 06-21-2024 Magnesium [Mass/Vol] 2.3 mg/dL Normal 1.6-2.[address] [facility] Comment on above: Performed By: #### L 501.5200, L503.5510, L100.0500, L3380.1400, L500.4050 ####[facility] [address] [place], [address] Neurology Visit Reporton Neurology Visit Report Normal [facility] L5000.0010on 06-02-2024 Natriuretic peptide B (Bld) [Mass/Vol] 17.7 pg/mL Normal 0.0-100.0 [facility] Comment on above: Order Comment: Speci men Comment: A duplicate report has been generateddue to demographicSpecimen Comment: update of the patient's Date of ,Age, Gender, and/orSpecimen Comment: Specimen Date. Please review patientresults, referenceSpecimen Comment: intervals, and calculated results thatmay have beenSpecimen Comment: affected by this change. Result Comment: Dianelys guevara [employer]iodieselUNIQUE Circadenceaur XP methodologyPerformed at: [facility] - Labtnrp [id number] [place], [place] [id number] Director: Jaxon Dunham PhD, Phone: [phone] Performed By: #### L 501.5200, L5000.0010 ####[facility] [address] [place], [address] Internal Medicine Office Vis iton 05-28-2024 Internal Medicine Office Visit Normal [facility] Brain W/WO Contraston 2023 Brain W/WO Contrast Normal [facility] CBC W/Diff, Automatedon 05-11 Absolute Lymph 2.22 X10 3/uL Normal 0.83-4.51 [facility] Comment on above: Performed By: #### L 501.2300, L501.5200, L500.4050, L100.0100 ####[facility] [address] [place], [address] Absolute Neut 4.4 X10 3/uL Normal 2.0-7.7 [facility] Comment on above: Performed By: #### L 501.2300, L501.5200, L500.4050, L100.0100 ####[facility] [address] [place], [address] Basophils/100 WBC (Bld) 0.3 % Normal 0-1 [facility] Comment on above: Performed By: #### L 501.2300, L501.5200, L500.4050, L100.0100 ####[facility] [address] [place], [address] Eosinophils/100 WBC (Bld) 3.3 % Normal 0-5 [facility] Comment on above: Performed By: #### L 501.2300, L501.5200, L500.4050, L100.0100 ####[facility] [address] [place], [address] Erythrocyte distribution width (RBC) [Ratio] 14.1 % Normal 11.6-14.6 [facility] Comment on above: Performed By: #### L 501.2300, L501.5200, L500.4050, L100.0100 ####[facility] [address] [place], [address] Hematocrit (Bld) [Volume fraction] 34.4 % Low 37-47 [facility] Comment on above: Performed By: #### L 501.2300, L501.5200, L500.4050, L100.0100 ####[facility] [address] [place], [address] Hemoglobin (Bld) [Mass/Vol] 10.6 g/dL Low 12.0-15.0 [facility] Comment on above: Performed By: #### L 501.2300, L501.5200, L500.4050, L100.0100 ####[facility] [address] [place], [address] IG% 0.300 Normal 0.0-0.9 [facility] Comment on above: Result Comment: IG% - Immature Granulocytes (promyelocytes, myelocytes andmetamyelocytes) > 1% indicates that a LEFT SHIFT is Present. Performed By: #### L 501.2300, L501.5200, L500.4050, L100.0100 ####[facility] [address] [place], [address] Lymphocytes/100 WBC (Bld) 28.9 % Normal 19-41 [facility] Comment on above: Performed By: #### L 501.2300, L501.5200, L500.4050, L100.0100 ####[facility] [address] [place], [address] MCH (RBC) [Entitic mass] 28.6 pg Normal 27.0-32.0 [facility] Comment on above: Performed By: #### L 501.2300, L501.5200, L500.4050, L100.0100 ####[facility] [address] [place], [address] MCHC (RBC) [Mass/Vol] 30.8 g/dL Low 32-36 [facility] Comment on above: Performed By: #### L 501.2300, L501.5200, L500.4050, L100.0100 ####[facility] [address] [place], [address] MCV (RBC) [Entitic vol] 92.7 fL Normal 81-99 [facility] Comment on above: Performed By: #### L 501.2300, L501.5200, L500.4050, L100.0100 ####[facility] [address] [place], [address] Monocytes/100 WBC (Bld) 9.6 % Normal 0-10 [facility] Comment on above: Performed By: #### L 501.2300, L501.5200, L500.4050, L100.0100 ####[facility] [address] [place], [address] Neutrophils/100 WBC (Bld) 57.6 % Normal 47-70 [facility] Comment on above: Performed By: #### L 501.2300, L501.5200, L500.4050, L100.0100 ####[facility] [address] [place], [address] Nucleated RBC (Bld) [#/Vol] 0 10*3/uL Normal 0-5 [facility] Comment on above: Performed By: #### L 501.2300, L501.5200, L500.4050, L100.0100 ####[facility] [address] [place], [address] Platelet mean volume (Bld) [Entitic vol] 10.1 fL Normal 6.2-12.0 [facility] Comment on above: Performed By: #### L 501.2300, L501.5200, L500.4050, L100.0100 ####[facility] [address] [place], [address] Platelets (Bld) [#/Vol] 280 10*3/uL Normal 150-450 [facility] Comment on above: Performed By: #### L 501.2300, L501.5200, L500.4050, L100.0100 ####[facility] [address] [place], [address] RBC (Bld) [#/Vol] 3.71 10*6/uL Low 4.2-5.4 [facility] Comment on above: Performed By: #### L 501.2300, L501.5200, L500.4050, L100.0100 ####[facility] [address] [place], [address] RDW SD 48.2 fl High 35.1-43.9 [facility] Comment on above: Performed By: #### L 501.2300, L501.5200, L500.4050, L100.0100 ####[facility] [address] [place], [address] WBC (Bld) [#/Vol] 7.7 10*3/uL Normal 4.4-11.0 [facility] Comment on above: Performed By: #### L 501.2300, L501.5200, L500.4050, L100.0100 ####[facility] [address] [place], [address] Comprehensive Metabolic Prof tnhelen 05-24-2024 Albumin [Mass/Vol] 3.0 g/dL Low 3.2-5.0 [facility] Comment on above: Order Comment: Comme nts: NPO at [place] prior to lipid panel Performed By: #### L 501.2300, L501.5200, L500.4050, L100.0100 ####[facility] [address] [place], [address] Albumin/Globulin [Mass ratio] 0.9 {ratio} Normal 0.9-2.4 [facility] Comment on above: Order Comment: Comme nts: NPO at [place] prior to lipid panel Performed By: #### L 501.2300, L501.5200, L500.4050, L100.0100 ####[facility] [address] [place], [address] ALK P 69 U/L Normal 45-117 [facility] Comment on above: Order Comment: Comme nts: NPO at [place] prior to lipid panel Performed By: #### L 501.2300, L501.5200, L500.4050, L100.0100 ####[facility] [address] [place], [address] ALT [Catalytic activity/Vol] 17 U/L Normal 13-56 [facility] Comment on above: Order Comment: Comme nts: NPO at [place] prior to lipid panel Performed By: #### L 501.2300, L501.5200, L500.4050, L100.0100 ####[facility] [address] [place], [address] AST [Catalytic activity/Vol] 12 U/L Low 15-37 [facility] Comment on above: Order Comment: Comme nts: NPO at [place] prior to lipid panel Performed By: #### L 501.2300, L501.5200, L500.4050, L100.0100 ####[facility] [address] [place], [address] Bilirubin [Mass/Vol] 0.40 mg/dL Normal 0.20-1.[address] [facility] Comment on above: Order Comment: Comme nts: NPO at [place] prior to lipid panel Result Comment: For patients on eltrombopag therapy, use of Dimension Upperglade TBIL is not recommended. Performed By: #### L 501.2300, L501.5200, L500.4050, L100.0100 ####[facility] [address] [place], [address] BUN/CRE 30.3 RATIO High 10-20 [facility] Comment on above: Order Comment: Comme nts: NPO at [place] prior to lipid panel Performed By: #### L 501.2300, L501.5200, L500.4050, L100.0100 ####[facility] [address] [place], [address] CA,Total 9.2 mg/dL Normal 8.5-10.1 [facility] Comment on above: Order Comment: Comme nts: NPO at [place] prior to lipid panel Performed By: #### L 501.2300, L501.5200, L500.4050, L100.0100 ####[facility] [address] [place], [address] Chloride [Moles/Vol] 108 mmol/L High 98-[address] [facility] Comment on above: Order Comment: Comme nts: NPO at [place] prior to lipid panel Performed By: #### L 501.2300, L501.5200, L500.4050, L100.0100 ####[facility] [address] [place], [address] CO2 [Moles/Vol] 26.0 mmol/L Normal 21.0-32.0 [facility] Comment on above: Order Comment: Comme nts: NPO at [place] prior to lipid panel Performed By: #### L 501.2300, L501.5200, L500.4050, L100.0100 ####[facility] [address] [place], [address] Creatinine [Mass/Vol] 0.76 mg/dL Normal 0.55-1.02 [facility] Comment on above: Order Comment: Comme nts: NPO at [place] prior to lipid panel Result Comment: The validity of the calculated GFR GFRAA in patients over70 years has not been determined. Clinical correlation isessential. Performed By: #### L 501.2300, L501.5200, L500.4050, L100.0100 ####[facility] [address] [place], [address] ECRCL 64.16 ml/min Normal [facility] Comment on above: Order Comment: Comme nts: NPO at [place] prior to lipid panel Performed By: #### L 501.2300, L501.5200, L500.4050, L100.0100 ####[facility] [address] [place], [address] EST GFR - AA 98 mL/min Normal >60 [facility] Comment on above: Order Comment: Comme nts: NPO at [place] prior to lipid panel Result Comment: Afri can German GFR Calc Performed By: #### L 501.2300, L501.5200, L500.4050, L100.0100 ####[facility] [address] [place], [address] GAP 5 Normal 5-15 [facility] Comment on above: Order Comment: Comme nts: NPO at [place] prior to lipid panel Performed By: #### L 501.2300, L501.5200, L500.4050, L100.0100 ####[facility] [address] [place], [address] GFR/1.73 sq M.predicted among non-blacks MDRD (S/P/Bld) [Vol rate/Area] 81 mL/min/{1.73_m2} Normal >60 [facility] Comment on above: Order Comment: Comme nts: NPO at [place] prior to lipid panel Result Comment: Non- GFR Calc Performed By: #### L 501.2300, L501.5200, L500.4050, L100.0100 ####[facility] [address] [place], [address] Globulin (S) [Mass/Vol] 3.5 g/dL Normal 2.2-4.2 [facility] Comment on above: Order Comment: Comme nts: NPO at [place] prior to lipid panel Performed By: #### L 501.2300, L501.5200, L500.4050, L100.0100 ####[facility] [address] [place], [address] Glucose [Mass/Vol] 137 mg/dL High 74-106 [facility] Comment on above: Order Comment: Comme nts: NPO at [place] prior to lipid panel Result Comment: Fast ing Glucose result greater than or equal to 126 mg/dLsuggests DIABETES MELLITUS per A.D.A. criteria. Performed By: #### L 501.2300, L501.5200, L500.4050, L100.0100 ####[facility] [address] [place], [address] Potassium [Moles/Vol] 3.8 mmol/L Normal 3.5-5.1 [facility] Comment on above: Order Comment: Comme nts: NPO at [place] prior to lipid panel Performed By: #### L 501.2300, L501.5200, L500.4050, L100.0100 ####[facility] [address] [place], [address] Sodium [Moles/Vol] 139 mmol/L Normal 136-145 [facility] Comment on above: Order Comment: Comme nts: NPO at [place] prior to lipid panel Performed By: #### L 501.2300, L501.5200, L500.4050, L100.0100 ####[facility] [address] [place], [address] T PROT 6.5 g/dL Normal 6.4-8.2 [facility] Comment on above: Order Comment: Comme nts: NPO at [place] prior to lipid panel Performed By: #### L 501.2300, L501.5200, L500.4050, L100.0100 ####[facility] [address] [place], [address] Urea nitrogen [Mass/Vol] 23 mg/dL High 7-18 [facility] Comment on above: Order Comment: Comme nts: NPO at [place] prior to lipid panel Performed By: #### L 501.2300, L501.5200, L500.4050, L100.0100 ####[facility] [address] [place], [address] Discharge Instructionon 05-11 Discharge Instruction Normal [facility] Magnesiumon 05-24-2024 Magnesium [Mass/Vol] 2.0 mg/dL Normal 1.6-2.[address] [facility] Comment on above: Order Comment: Comme nts: NPO at [place] prior to lipid panel Performed By: #### L 501.2300, L501.5200, L500.4050, L100.0100 ####[facility] [address] [place], [address] Phosphoruson 05-24-2024 Phosphate [Mass/Vol] 2.8 mg/dL Normal 2.5-4.[address] [facility] Comment on above: Order Comment: Comme nts: NPO at [place] prior to lipid panel Performed By: #### L 501.2300, L501.5200, L500.4050, L100.0100 ####[facility] [address] [place], [address] 12 Lead EKGon 05-23-2024 12 Lead EKG Normal [facility] Basic Metabolic Profile (BMP )on 05-23-2024 BUN/CRE 32.7 RATIO High 10-20 [facility] Comment on above: Performed By: #### L 500.4100, L300.4310, L100.0100, L500.2500, L300.3900 ####[facility] [address] [place], [address] CA,Total 9.7 mg/dL Normal 8.5-10.1 [facility] Comment on above: Performed By: #### L 500.4100, L300.4310, L100.0100, L500.2500, L300.3900 ####[facility] [address] [place], [address] Chloride [Moles/Vol] 108 mmol/L High 98-[address] [facility] Comment on above: Performed By: #### L 500.4100, L300.4310, L100.0100, L500.2500, L300.3900 ####[facility] [address] [place], [address] CO2 [Moles/Vol] 22.0 mmol/L Normal 21.0-32.0 [facility] Comment on above: Performed By: #### L 500.4100, L300.4310, L100.0100, L500.2500, L300.3900 ####[facility] [address] [place], [address] Creatinine [Mass/Vol] 1.01 mg/dL Normal 0.55-1.02 [facility] Comment on above: Result Comment: The validity of the calculated GFR GFRAA in patients over70 years has not been determined. Clinical correlation isessential. Performed By: #### L 500.4100, L300.4310, L100.0100, L500.2500, L300.3900 ####[facility] [address] [place], [address] ECRCL 51.09 ml/min Normal [facility] Comment on above: Performed By: #### L 500.4100, L300.4310, L100.0100, L500.2500, L300.3900 ####[facility] [address] [place], [address] EST GFR - AA 70 mL/min Normal >60 [facility] Comment on above: Result Comment: Afri can German GFR Calc Performed By: #### L 500.4100, L300.4310, L100.0100, L500.2500, L300.3900 ####[facility] [address] [place], [address] GAP 9 Normal 5-15 [facility] Comment on above: Performed By: #### L 500.4100, L300.4310, L100.0100, L500.2500, L300.3900 ####[facility] [address] [place], [address] GFR/1.73 sq M.predicted among non-blacks MDRD (S/P/Bld) [Vol rate/Area] 58 mL/min/{1.73_m2} Low >60 [facility] Comment on above: Result Comment: Non- GFR Calc Performed By: #### L 500.4100, L300.4310, L100.0100, L500.2500, L300.3900 ####[facility] [address] [place], [address] Glucose [Mass/Vol] 173 mg/dL High 74-106 [facility] Comment on above: Result Comment: Fast ing Glucose result greater than or equal to 126 mg/dLsuggests DIABETES MELLITUS per A.D.A. criteria. Performed By: #### L 500.4100, L300.4310, L100.0100, L500.2500, L300.3900 ####[facility] [address] [place], [address] Potassium [Moles/Vol] 3.8 mmol/L Normal 3.5-5.1 [facility] Comment on above: Performed By: #### L 500.4100, L300.4310, L100.0100, L500.2500, L300.3900 ####[facility] [address] [place], [address] Sodium [Moles/Vol] 139 mmol/L Normal 136-145 [facility] Comment on above: Performed By: #### L 500.4100, L300.4310, L100.0100, L500.2500, L300.3900 ####[facility] [address] [place], [address] Urea nitrogen [Mass/Vol] 33 mg/dL High 7-18 [facility] Comment on above: Performed By: #### L 500.4100, L300.4310, L100.0100, L500.2500, L300.3900 ####[facility] [address] [place], [address] Bedside Glucoseon 05-23-2024 FINGERSTICK GLU 205 mg/dL High 74-106 [facility] Comment on above: Result Comment: MORGAN GEMENT OF PATIENT CARE PER NURSING PROTOCOL Performed By: #### L 501.080 ####[facility] [address] [place], [address] FINGERSTICK GLU 176 mg/dL High 74-106 [facility] Comment on above: Result Comment: MORGAN GEMENT OF PATIENT CARE PER NURSING PROTOCOL Performed By: #### L 501.080 ####[facility] [address] [place], [address] FINGERSTICK GLU 199 mg/dL High 74-106 [facility] Comment on above: Result Comment: MORGAN GEMENT OF PATIENT CARE PER NURSING PROTOCOL Performed By: #### L 501.080 ####[facility] [address] [place], [address] CBC W/Diff, Automatedon 10-08 13-2023 Absolute Lymph 4.13 X10 3/uL Normal 0.83-4.51 [facility] Comment on above: Performed By: #### L 500.4100, L300.4310, L100.0100, L500.2500, L300.3900 ####[facility] [address] [place], [address] Absolute Neut 4.5 X10 3/uL Normal 2.0-7.7 [facility] Comment on above: Performed By: #### L 500.4100, L300.4310, L100.0100, L500.2500, L300.3900 ####[facility] [address] [place], [address] Basophils/100 WBC (Bld) 0.6 % Normal 0-1 [facility] Comment on above: Performed By: #### L 500.4100, L300.4310, L100.0100, L500.2500, L300.3900 ####[facility] [address] [place], [address] Eosinophils/100 WBC (Bld) 3.9 % Normal 0-5 [facility] Comment on above: Performed By: #### L 500.4100, L300.4310, L100.0100, L500.2500, L300.3900 ####[facility] [address] [place], [address] Erythrocyte distribution width (RBC) [Ratio] 14.2 % Normal 11.6-14.6 [facility] Comment on above: Performed By: #### L 500.4100, L300.4310, L100.0100, L500.2500, L300.3900 ####[facility] [address] [place], [address] Hematocrit (Bld) [Volume fraction] 38.9 % Normal 37-47 [facility] Comment on above: Performed By: #### L 500.4100, L300.4310, L100.0100, L500.2500, L300.3900 ####[facility] [address] [place], [address] Hemoglobin (Bld) [Mass/Vol] 11.8 g/dL Low 12.0-15.0 [facility] Comment on above: Performed By: #### L 500.4100, L300.4310, L100.0100, L500.2500, L300.3900 ####[facility] [address] [place], [address] IG% 0.800 Normal 0.0-0.9 [facility] Comment on above: Result Comment: IG% - Immature Granulocytes (promyelocytes, myelocytes andmetamyelocytes) > 1% indicates that a LEFT SHIFT is Present. Performed By: #### L 500.4100, L300.4310, L100.0100, L500.2500, L300.3900 ####[facility] [address] [place], [address] Lymphocytes/100 WBC (Bld) 41.1 % High 19-41 [facility] Comment on above: Performed By: #### L 500.4100, L300.4310, L100.0100, L500.2500, L300.3900 ####[facility] [address] [place], [address] MCH (RBC) [Entitic mass] 28.5 pg Normal 27.0-32.0 [facility] Comment on above: Performed By: #### L 500.4100, L300.4310, L100.0100, L500.2500, L300.3900 ####[facility] [address] [place], [address] MCHC (RBC) [Mass/Vol] 30.3 g/dL Low 32-36 [facility] Comment on above: Performed By: #### L 500.4100, L300.4310, L100.0100, L500.2500, L300.3900 ####[facility] [address] [place], [address] MCV (RBC) [Entitic vol] 94.0 fL Normal 81-99 [facility] Comment on above: Performed By: #### L 500.4100, L300.4310, L100.0100, L500.2500, L300.3900 ####[facility] [address] [place], [address] Monocytes/100 WBC (Bld) 9.2 % Normal 0-10 [facility] Comment on above: Performed By: #### L 500.4100, L300.4310, L100.0100, L500.2500, L300.3900 ####[facility] [address] [place], [address] Neutrophils/100 WBC (Bld) 44.4 % Low 47-70 [facility] Comment on above: Performed By: #### L 500.4100, L300.4310, L100.0100, L500.2500, L300.3900 ####[facility] [address] [place], [address] Nucleated RBC (Bld) [#/Vol] 0 10*3/uL Normal 0-5 [facility] Comment on above: Performed By: #### L 500.4100, L300.4310, L100.0100, L500.2500, L300.3900 ####[facility] [address] [place], [address] Platelet mean volume (Bld) [Entitic vol] 9.8 fL Normal 6.2-12.0 [facility] Comment on above: Performed By: #### L 500.4100, L300.4310, L100.0100, L500.2500, L300.3900 ####[facility] [address] [place], [address] Platelets (Bld) [#/Vol] 330 10*3/uL Normal 150-450 [facility] Comment on above: Performed By: #### L 500.4100, L300.4310, L100.0100, L500.2500, L300.3900 ####[facility] [address] [place], [address] RBC (Bld) [#/Vol] 4.14 10*6/uL Low 4.2-5.4 [facility] Comment on above: Performed By: #### L 500.4100, L300.4310, L100.0100, L500.2500, L300.3900 ####[facility] [address] [place], [address] RDW SD 49.1 fl High 35.1-43.9 [facility] Comment on above: Performed By: #### L 500.4100, L300.4310, L100.0100, L500.2500, L300.3900 ####[facility] [address] [place], [address] WBC (Bld) [#/Vol] 10.1 10*3/uL Normal 4.4-11.0 [facility] Comment on above: Performed By: #### L 500.4100, L300.4310, L100.0100, L500.2500, L300.3900 ####[facility] [address] [place], [address] Chest 1 Viewon 05-23-2024 Chest 1 View Normal [facility] Echo Completeon 05-23-2024 Echo Complete Normal [facility] Emergency Department Summary on 05-23-2024 Emergency Department Summary Normal [facility] Foot 2 Viewson 05-23-2024 Foot 2 Views Normal [facility] H AND P Exam - Hospitaliston 05-23-2024 H&P Exam - Hospitalist Normal [facility] Hemoglobin A1con 05-23-2024 HbA1c (Bld) [Mass fraction] 7.2 % High 3.8-5.6 [facility] Comment on above: Result Comment: Norm al < 5.7 % Prediabetic 5.7 - 6.4 % Diabetic >or= 6.5 % Please note range changes. Performed By: #### L 501.9520, L501.9985 ####[facility] [address] [place], [address] Legionella Antigen Urineon 1 LEGU Normal [facility] Comment on above: Performed By: #### M 300.4500, M300.4600 ####[facility] [address] [place], [address] Lipid Profileon 05-23-2024 Cholesterol [Mass/Vol] 268 mg/dL High 200 [facility] Comment on above: Result Comment: <200 mg/dL Desirable 200-240 mg/dL Borderline >240 mg/dL High Risk Performed By: #### L 500.4100, L300.4310, L100.0100, L500.2500, L300.3900 ####[facility] [address] [place], [address] Cholesterol in HDL [Mass/Vol] 54 mg/dL Normal [facility] Comment on above: Result Comment: The drugs N-Acetylcysteine and Metamizole may falselydepress this assay. Reference Range HDL <40 mg/dL Low HDL Cholesterol HDL >or= 60 mg/dL High HDL Cholesterol Performed By: #### L 500.4100, L300.4310, L100.0100, L500.2500, L300.3900 ####[facility] [address] [place], [address] Cholesterol in LDL [Mass/Vol] 173 mg/dL High 0-130 [facility] Comment on above: Performed By: #### L 500.4100, L300.4310, L100.0100, L500.2500, L300.3900 ####[facility] [address] [place], [address] Cholesterol in VLDL [Mass/Vol] 41 mg/dL High 5-40 [facility] Comment on above: Performed By: #### L 500.4100, L300.4310, L100.0100, L500.2500, L300.3900 ####[facility] [address] [place], [address] Triglyceride [Mass/Vol] 207 mg/dL High [facility] Comment on above: Result Comment: The drugs N-Acetylcysteine and Metamizole may falselydepress this assay.Serum Triglycerides Reference Interval Normal <150 mg/dL Borderline high 150 - 199 mg/dL High 200 - 499 mg/dL Very High > or = 500 mg/dL Performed By: #### L 500.4100, L300.4310, L100.0100, L500.2500, L300.3900 ####[facility] [address] [place], [address] M100.678on 05-23-2024 M100.678 Pending SARS-CoV-2 (COVID 19) Negative INFLUENZA A Negative INFLUENZA B Negative RSV PCR Negative [facility] [facility] Comment on above: Performed By: #### M 100.678 ####[facility] [id number] [place], [address] MR/CON.PCM.NEon 05-23-2024 MR/CON.PCM.NE Normal [facility] Magnesiumon 05-23-2024 Magnesium [Mass/Vol] 2.2 mg/dL Normal 1.6-2.[address] [facility] Comment on above: Performed By: #### L 501.5200, L5000.0010 ####[facility] [id number] [place], [address] Partial Thromboplast Timeon 05-23-2024 aPTT Coag (Bld) [Time] 25.5 s Normal 24.1-36.2 [facility] Comment on above: Performed By: #### L 500.4100, L300.4310, L100.0100, L500.2500, L300.3900 ####[facility] [id number] [place], [address] Prothrombin Time w/INRon INR Coag (PPP) [Relative time] 1.0 {INR} Normal [facility] Comment on above: Performed By: #### L 500.4100, L300.4310, L100.0100, L500.2500, L300.3900 ####[facility] [id number] [place], [address] PT Coag (PPP) [Time] 13.0 s Normal 11.7-14.[address] [facility] Comment on above: Performed By: #### L 500.4100, L300.4310, L100.0100, L500.2500, L300.3900 ####[facility] [id number] [place], [address] STROKE Brain/Head without Co nton 05-23-2024 STROKE Brain/Head without Cont Normal [facility] STROKE CTA Head AND Neck W/C onon 05-23-2024 STROKE CTA Head AND Neck W/Con Normal [facility] Strep pneumoniae Antig(UR,CS F)on 05-23-2024 STPAG Normal [facility] Comment on above: Performed By: #### M 300.1030, M300.4600 ####[facility] [id number] [place], [address] Thyroid Stim Hormone (TSH)on 05-23-2024 TSH 2.470 uIU/mL Normal 0.358-3.740 [facility] Comment on above: Performed By: #### L 501.9520, L501.9985 ####[facility] [id number] [place], [address] Absolute lymphocyte countOrd ered By: Danny Herrera on 10-16-2023 Lymphocytes Auto (Unsp spec) [#/Vol] 1.66 10*3/uL 0.83-4.51 [facility] Automated lymphocyte count a s percentage of total leukocytesOrdered By: Danny Herrera on 10-16-2023 Lymphocytes/100 WBC Auto (Unsp spec) 20.6 % 19-41 [facility] Basophil percentageOrdered B y: Danny Herrera on 10-16-2023 Basophils/100 WBC (Bld) 0.2 % 0-1 [facility] Bilirubin [Mass/Vol] 0.50 mg/dL 0.20-1.[address] [facility] Comment on above: For patients on eltr ombopag therapy, use of Dimension Upperglade TBIL is not recommended. Chloride [Moles/Vol] 110 mmol/L 98-[address] [facility] Cholesterol [Mass/Vol] 283 mg/dL <200 [facility] Comment on above: <200 mg/dL Desirable 200-240 mg/dL Borderline >240 mg/dL High Risk Eosinophils/100 WBC (Bld) 1.7 % 0-5 [facility] Glucose [Mass/Vol] 166 mg/dL 74-106 [facility] Comment on above: Fasting Glucose resu lt greater than or equal to 126 mg/dL suggests DIABETES MELLITUS per A.D.A. criteria. Hemoglobin (Bld) [Mass/Vol] 12.3 g/dL 12.0-15.0 [facility] Monocytes/100 WBC (Bld) 6.2 % 0-10 [facility] Neutrophils (Bld) [#/Vol] 5.7 10*3/uL 2.0-7.7 [facility] Neutrophils/100 WBC (Bld) 70.8 % 47-70 [facility] Potassium [Moles/Vol] 4.2 mmol/L 3.5-5.1 [facility] Protein [Mass/Vol] 8.0 g/dL 6.4-8.2 [facility] Sodium [Moles/Vol] 141 mmol/L 136-145 [facility] Triglyceride [Mass/Vol] 228 mg/dL <199 [facility] Comment on above: The drugs N-Acetylcy steine and Metamizole may falsely depress this assay.Serum Triglycerides Reference Interval Normal <150 mg/dL Borderline high 150 - 199 mg/dL High 200 - 499 mg/dL Very High > or = 500 mg/dL WBC (Bld) [#/Vol] 8.1 10*3/uL 4.4-11.0 [facility] Determination of erythrocyte mean corpuscular volume (MCV)Ordered By: Danny Herrera on 10-16-2023 MCV (RBC) [Entitic vol] 91.7 fL 81-99 [facility] Erythrocyte distribution wid th ratioOrdered By: [facility] Brennonrach on 10-16-2023 Erythrocyte distribution width (RBC) [Ratio] 14.5 % 11.6-14.6 [facility] Erythrocyte distribution wid th standard deviationOrdered By: [facility] Brennonrach on 10-16-2023 Erythrocyte distribution width (RBC) [Entitic vol] 49.0 fL 35.1-43.9 [facility] Erythrocyte sedimentation ra teOrdered By: [facility] Willettrach on 10-16-2023 ESR (Bld) [Velocity] 43 mm/h 0-[address] [facility] Hematocrit Auto (Bld) [Volum e fraction]Ordered By: [facility] Brennonrach on 10-16-2023 Hematocrit (Bld) [Volume fraction] 38.6 % 37-47 [facility] Immature granulocytes/100 WB C Auto (Bld)Ordered By: [facility] Willettr[facility] on 10-16-2023 Immature granulocytes/100 WBC (Bld) 0.500 % 0.0-0.9 [facility] Comment on above: IG% - Immature Granu locytes (promyelocytes, myelocytes and metamyelocytes) > 1% indicates that a LEFT SHIFT is Present. Laboratory - Chemistry and C hemistry - challengeOrdered By: sloane Willettrach on 10-16-2023 Albumin/Globulin [Mass ratio] 0.9 {ratio} 0.9-2.4 [facility] ALP [Catalytic activity/Vol] 94 U/L 45-117 [facility] ALT [Catalytic activity/Vol] 26 U/L 13-56 [facility] Cholesterol in HDL [Mass/Vol] 56 mg/dL >40 [facility] Comment on above: The drugs N-Acetylcy steine and Metamizole may falsely depress this assay. Reference Range HDL <40 mg/dL Low HDL Cholesterol HDL >or= 60 mg/dL High HDL Cholesterol Cholesterol in LDL [Mass/Vol] 181 mg/dL 0-130 [facility] CO2 [Moles/Vol] 21.0 mmol/L 21.0-32.0 [facility] Globulin (S) [Mass/Vol] 4.3 g/dL 2.2-4.2 [facility] Urea nitrogen/Creatinine [Mass ratio] 30.2 mg/mg 10-20 [facility] Laboratory - Hematology and Cell countsOrdered By: Danny Herrrea on 10-16-2023 MCH (RBC) [Entitic mass] 29.2 pg 27.0-32.0 [facility] MCHC (RBC) [Mass/Vol] 31.9 g/dL 32-36 [facility] Nucleated RBC/100 WBC (Bld) [Ratio] 0 % 0-5 [facility] Platelet mean volume (Bld) [Entitic vol] 10.2 fL 6.2-12.0 [facility] Platelets (Bld) [#/Vol] 298 10*3/uL 150-450 [facility] No Panel InformationOrdered By: Danny Herrera on 10-16-2023 C-Reactive Protein Extended Range 7.63 mg/L 0.0-3.0 [facility] Comment on above: C-Reactive Protein ( CRP) provides useful information for thediagnosis, therapy and monitoring of inflammatory processesand associated diseases. For the evaluation of Relative Riskfor Cardiovascular Disease, a High Sensitivity CRP (HSCRP)should be ordered. Estimated GFR (MDRD) Amer 85 mL/min >60 [facility] Comment on above: GFR Calc Estimated GFR (MDRD) Non-Af Amer 70 mL/min >60 [facility] Comment on above: Non- GFR Calc Vitamin D 25-Hydroxy 35.4 ng/mL [facility] Comment on above: Vitamin D 25(OH) Sta tus Range Deficiency <20 ng/mL (50nmol/L) Insufficiency 20 - 30 ng/mL (50 - 75 nmol/L) Sufficiency 30 - 100 ng/mL (75 - 250 nmol/L) Toxicity >100 ng/mL (>250 nmol/L) VLDL Cholesterol 46 mg/dL 5-40 [facility] RBC Auto (Bld) [#/Vol]Ordere d By: Danny Herrera on 10-16-2023 RBC (Bld) [#/Vol] 4.21 10*6/uL 4.2-5.4 [facility] Serum or plasma calcium digna urement (mass/volume)Ordered By: Danny Herrera on 10-16-2023 Calcium [Mass/Vol] 9.7 mg/dL 8.5-10.1 [facility] Serum or plasma creatinine m easurement (mass/volume)Ordered By: Danny Herrera on 10-16-2023 Creatinine [Mass/Vol] 0.86 mg/dL 0.55-1.02 [facility] Comment on above: The validity of the calculated GFR & GFRAA in patients over 70 years has not been determined. Clinical correlation is essential. Serum or plasma urea nitroge n measurement (mass/volume)Ordered By: Danny Herrera on 10-16-2023 Urea nitrogen [Mass/Vol] 26 mg/dL 7-18 [facility] Thin prep Papanicolaou smear with manual screeningOrdered By: Danny Herrera on 10-16-2023 Thin prep Papanicolaou smear with manual screening 3.7 g/dL 3.2-5.0 [facility] Thin prep Papanicolaou smear with manual screening 21 U/L 15-37 [facility] Thin prep Papanicolaou smear with manual screening 10 5-15 [facility] Whole blood hemoglobin A1c/t otal hemoglobin ratio (mass fraction)Ordered By: Danny Herrera on 10-16-2023 HbA1c (Bld) [Mass fraction] 7.7 % 3.8-5.6 [facility] Comment on above: Normal < 5.7 % Predi abetic 5.7 - 6.4 % Diabetic >or= 6.5 % Please note range changes. Basophil percentageOrdered B y: Nazario Cahder on 11-27-2022 Cholesterol [Mass/Vol] 243 mg/dL <200 [facility] Comment on above: <200 mg/dL Desirable 200-240 mg/dL Borderline >240 mg/dL High Risk Triglyceride [Mass/Vol] 267 mg/dL <199 [facility] Comment on above: The drugs N-Acetylcy steine and Metamizole may falsely depress this assay.Serum Triglycerides Reference Interval Normal <150 mg/dL Borderline high 150 - 199 mg/dL High 200 - 499 mg/dL Very High > or = 500 mg/dL No Panel InformationOrdered By: Nazario Ha on 11-27-2022 Thyroid Stimulating Hormone (TSH) 0.46 uIU/mL 0.358-3.74 [facility] Serum or plasma cholesterol in HDL measurement (mass/volume)Ordered By: Nazario Ha on 11-27-2022 Cholesterol in HDL [Mass/Vol] 48 mg/dL >40 [facility] Comment on above: The drugs N-Acetylcy steine and Metamizole may falsely depress this assay. Reference Range HDL <40 mg/dL Low HDL Cholesterol HDL >or= 60 mg/dL High HDL Cholesterol Serum or plasma cholesterol in VLDL measurement (mass/volume)Ordered By: Nazario Ha on 11-27-2022 Cholesterol in VLDL [Mass/Vol] 53 mg/dL 5-40 [facility] Serum or plasma low density lipoprotein (LDL) cholesterol measurement (mass/volume)Ordered By: Nazario Ha on 11-27-2022 Cholesterol in LDL [Mass/Vol] 142 mg/dL 0-130 [facility] Whole blood hemoglobin A1c/t otal hemoglobin ratio (mass fraction)Ordered By: Nazario Ha on 11-27-2022 HbA1c (Bld) [Mass fraction] 6.8 % 3.8-5.6 [facility] Comment on above: Normal < 5.7 % Predi abetic 5.7 - 6.4 % Diabetic >or= 6.5 % Please note range changes. Absolute lymphocyte countOrd ered By: Dr. Johnson on 11-01-2022 Lymphocytes Auto (Unsp spec) [#/Vol] 1.91 10*3/uL 0.83-4.51 [facility] Basophil percentageOrdered B y: Dr. Johnson on 11-01-2022 Basophils/100 WBC (Bld) 0.2 % 0-1 [facility] Bilirubin [Mass/Vol] 0.40 mg/dL 0.20-1.[address] [facility] Comment on above: For patients on eltr ombopag therapy, use of Dimension Upperglade TBIL is not recommended. Chloride [Moles/Vol] 103 mmol/L 98-[address] [facility] Eosinophils/100 WBC (Bld) 0.3 % 0-5 [facility] Glucose [Mass/Vol] 222 mg/dL 74-106 [facility] Comment on above: Glucose result great er than or equal to 200 mg/dLsuggests DIABETES MELLITUS per A.D.A. criteria. Neutrophils (Bld) [#/Vol] 7.3 10*3/uL 2.0-7.7 [facility] Neutrophils/100 WBC (Bld) 72.5 % 47-70 [facility] Potassium [Moles/Vol] 4.0 mmol/L 3.5-5.1 [facility] Protein [Mass/Vol] 8.6 g/dL 6.4-8.2 [facility] Sodium [Moles/Vol] 135 mmol/L 136-145 [facility] WBC (Bld) [#/Vol] 10.0 10*3/uL 4.4-11.0 [facility] Blood erythrocytes count (nu mber/volume)Ordered By: Dr. Johnson on 11-01-2022 RBC (Bld) [#/Vol] 4.03 10*6/uL 4.2-5.4 [facility] Blood hemoglobin measurement (mass/volume)Ordered By: Dr. Johnson on 11-01-2022 Hemoglobin (Bld) [Mass/Vol] 11.1 g/dL 12.0-15.0 [facility] Blood lymphocytes/100 leukoc ytesOrdered By: Dr. Johnson on 11-01-2022 Lymphocytes/100 WBC (Bld) 19.1 % 19-41 [facility] Blood monocytes/100 leukocyt esOrdered By: Dr. Johnson on 11-01-2022 Monocytes/100 WBC (Bld) 7.4 % 0-10 [facility] Blood platelet mean volumeOr dered By: Dr. Johnson on 11-01-2022 Platelet mean volume (Bld) [Entitic vol] 9.8 fL 6.2-12.0 [facility] Determination of erythrocyte mean corpuscular volume (MCV)Ordered By: Dr. Johnson on 11-01-2022 MCV (RBC) [Entitic vol] 89.3 fL 81-99 [facility] Erythrocyte sedimentation ra teOrdered By: Dr. Johnson on 11-01-2022 ESR (Bld) [Velocity] 99 mm/h 0-[address] [facility] Hematocrit Auto (Bld) [Volum e fraction]Ordered By: Dr. Johnson on 11-01-2022 Hematocrit (Bld) [Volume fraction] 36.0 % 37-47 [facility] Laboratory - Chemistry and C hemistry - challengeOrdered By: Dr. Johnson on 11-01-2022 ALP [Catalytic activity/Vol] 76 U/L 45-117 [facility] ALT [Catalytic activity/Vol] 20 U/L 13-56 [facility] CO2 [Moles/Vol] 26.0 mmol/L 21.0-32.0 [facility] Globulin (S) [Mass/Vol] 5.4 g/dL 2.2-4.2 [facility] Urea nitrogen/Creatinine [Mass ratio] 27.9 mg/mg 10-20 [facility] Laboratory - Hematology and Cell countsOrdered By: Dr. Johnson on 11-01-2022 Erythrocyte distribution width (RBC) [Entitic vol] 45.0 fL 35.1-43.9 [facility] Erythrocyte distribution width (RBC) [Ratio] 13.6 % 11.6-14.6 [facility] Immature granulocytes/100 WBC (Bld) 0.500 % 0.0-0.9 [facility] Comment on above: IG% - Immature Granu locytes (promyelocytes, myelocytes and metamyelocytes) > 1% indicates that a LEFT SHIFT is Present. MCH (RBC) [Entitic mass] 27.5 pg 27.0-32.0 [facility] Nucleated RBC/100 WBC (Bld) [Ratio] 0 % 0-5 [facility] MCHC Auto (RBC) [Mass/Vol]Or dered By: Dr. Johnson on 11-01-2022 MCHC (RBC) [Mass/Vol] 30.8 g/dL 32-36 [facility] No Panel InformationOrdered By: Dr. Johnson on 11-01-2022 Estimated GFR (MDRD) Amer 78 mL/min >60 [facility] Comment on above: GFR Calc Estimated GFR (MDRD) Non-Af Amer 64 mL/min >60 [facility] Comment on above: Non- GFR Calc Platelets bldOrdered By: Dr. Johnson on 11-01-2022 Platelets (Bld) [#/Vol] 573 10*3/uL 150-450 [facility] Serum or plasma C reactive p rotein measurement (mass/volume)Ordered By: Dr. Johnson on 11-01-2022 CRP [Mass/Vol] 108.00 mg/L 0.0-3.0 [facility] Comment on above: C-Reactive Protein ( CRP) provides useful information for thediagnosis, therapy and monitoring of inflammatory processesand associated diseases. For the evaluation of Relative Riskfor Cardiovascular Disease, a High Sensitivity CRP (HSCRP)should be ordered. Serum or plasma albumin digna urement (mass/volume)Ordered By: Dr. Johnson on 11-01-2022 Albumin [Mass/Vol] 3.2 g/dL 3.2-5.0 [facility] Serum or plasma albumin/glob ulin mass ratioOrdered By: Dr. Johnson on 11-01-2022 Albumin/Globulin [Mass ratio] 0.6 {ratio} 0.9-2.4 [facility] Serum or plasma calcium digna urement (mass/volume)Ordered By: Dr. Johnson on 11-01-2022 Calcium [Mass/Vol] 10.1 mg/dL 8.5-10.1 [facility] Serum or plasma creatinine m easurement (mass/volume)Ordered By: Dr. Johnson on 11-01-2022 Creatinine [Mass/Vol] 0.93 mg/dL 0.55-1.02 [facility] Comment on above: The validity of the calculated GFR & GFRAA in patients over 70 years has not been determined. Clinical correlation is essential. Serum or plasma urea nitroge n measurement (mass/volume)Ordered By: Dr. Johnson on 11-01-2022 Urea nitrogen [Mass/Vol] 26 mg/dL 7-18 [facility] Thin prep Papanicolaou smear with manual screeningOrdered By: Dr. Johnson on 11-01-2022 Thin prep Papanicolaou smear with manual screening 17 U/L 15-37 [facility] Thin prep Papanicolaou smear with manual screening 6 5-15 [facility] Absolute lymphocyte counton 11-10-2021 Lymphocytes Auto (Unsp spec) [#/Vol] 1.38 10*3/uL 0.83-4.51 [facility] Work Phone: [phone] Basophil percentageon 2021 Basophils/100 WBC (Bld) 0.2 % 0-1 [facility] Work Phone: [phone] Bilirubin [Mass/Vol] 0.30 mg/dL 0.20-1.[address] [facility] Work Phone: [phone] Comment on above: For patients on eltr ombopag therapy, use of Dimension Upperglade TBIL is not recommended. Chloride [Moles/Vol] 108 mmol/L 98-[address] [facility] Work Phone: [phone] Eosinophils/100 WBC (Bld) 0.7 % 0-5 [facility] Work Phone: [phone] Glucose [Mass/Vol] 189 mg/dL 74-106 [facility] Work Phone: [phone] Comment on above: Fasting Glucose resu lt greater than or equal to 126 mg/dL suggests DIABETES MELLITUS per A.D.A. criteria. Neutrophils (Bld) [#/Vol] 8.0 10*3/uL 2.0-7.7 [facility] Work Phone: [phone] Neutrophils/100 WBC (Bld) 80.1 % 47-70 [facility] Work Phone: [phone] Potassium [Moles/Vol] 4.5 mmol/L 3.5-5.1 [facility] Work Phone: [phone] Protein [Mass/Vol] 8.6 g/dL 6.4-8.2 [facility] Work Phone: [phone] Sodium [Moles/Vol] 139 mmol/L 136-145 [facility] Work Phone: [phone] WBC (Bld) [#/Vol] 9.9 10*3/uL 4.4-11.0 [facility] Work Phone: Blood erythrocytes count (nu mber/volume)on 11-10-2021 RBC (Bld) [#/Vol] 4.36 10*6/uL 4.2-5.4 [facility]: [phone] Blood hemoglobin measurement (mass/volume)on 11-10-2021 Hemoglobin (Bld) [Mass/Vol] 12.0 g/dL 12.0-15.0 [facility] Work Phone: Blood lymphocytes/100 leukoc yteson 11-10-2021 Lymphocytes/100 WBC (Bld) 13.9 % 19-41 [facility] Work Phone: Blood monocytes/100 leukocyt eson 11-10-2021 Monocytes/100 WBC (Bld) 4.8 % 0-10 [facility] Work Phone: Blood platelet mean volumeon 11-10-2021 Platelet mean volume (Bld) [Entitic vol] 9.7 fL 6.2-12.0 [facility] Work Phone: Determination of erythrocyte mean corpuscular volume (MCV)on 11-10-2021 MCV (RBC) [Entitic vol] 86.7 fL 81-99 [facility] Work Phone: [phone] Erythrocyte sedimentation ra sreedhar 11-10-2021 ESR (Bld) [Velocity] 40 mm/h 0-[address] [facility] Work Phone: [phone] Hematocrit Auto (Bld) [Volum e fraction]on 11-10-2021 Hematocrit (Bld) [Volume fraction] 37.8 % 37-47 [facility] Work Phone: [phone] Laboratory - Chemistry and C hemistry - challengeon 11-10-2021 ALP [Catalytic activity/Vol] 73 U/L 45-117 [facility] Work Phone: [phone] ALT [Catalytic activity/Vol] 17 U/L 13-56 [facility] Work Phone: CO2 [Moles/Vol] 25.0 mmol/L 21.0-32.0 [facility] Work Phone: Globulin (S) [Mass/Vol] 5.1 g/dL 2.2-4.2 [facility] Work Phone: Urea nitrogen/Creatinine [Mass ratio] 31.7 mg/mg 10-20 [facility] Work Phone: Laboratory - Hematology and Cell countson 11-10-2021 Erythrocyte distribution width (RBC) [Entitic vol] 53.5 fL 35.1-43.9 [facility] Work Phone: Erythrocyte distribution width (RBC) [Ratio] 16.7 % 11.6-14.6 [facility] Work Phone: Immature granulocytes/100 WBC (Bld) 0.300 % 0.0-0.9 [facility] Work Phone: Comment on above: IG% - Immature Granu locytes (promyelocytes, myelocytes and metamyelocytes) > 1% indicates that a LEFT SHIFT is Present. MCH (RBC) [Entitic mass] 27.5 pg 27.0-32.0 [facility] Work Phone: Nucleated RBC/100 WBC (Bld) [Ratio] 0 % 0-5 [facility] Work Phone: MCHC Auto (RBC) [Mass/Vol]on 11-10-2021 MCHC (RBC) [Mass/Vol] 31.7 g/dL 32-36 [facility] Work Phone: No Panel Informationon 11-10 Estimated GFR (MDRD) Amer 79 mL/min >60 [facility] Work Phone: Comment on above: GFR Calc Estimated GFR (MDRD) Non-Af Amer 66 mL/min >60 [facility] Work Phone: Comment on above: Non- GFR Calc Platelets bldon 11-10-2021 Platelets (Bld) [#/Vol] 377 10*3/uL 150-450 [facility] Work Phone: Serum or plasma C reactive p rotein measurement (mass/volume)on 11-10-2021 CRP [Mass/Vol] 21.40 mg/L 0.0-3.0 [facility] Work Phone: Comment on above: C-Reactive Protein ( CRP) provides useful information for thediagnosis, therapy and monitoring of inflammatory processesand associated diseases. For the evaluation of Relative Riskfor Cardiovascular Disease, a High Sensitivity CRP (HSCRP)should be ordered. Serum or plasma albumin digna urement (mass/volume)on 11-10-2021 Albumin [Mass/Vol] 3.5 g/dL 3.2-5.0 [facility] Work Phone: Serum or plasma albumin/glob ulin mass ratioon 11-10-2021 Albumin/Globulin [Mass ratio] 0.7 {ratio} 0.9-2.4 [facility] Work Phone: Serum or plasma calcium digna urement (mass/volume)on 11-10-2021 Calcium [Mass/Vol] 9.5 mg/dL 8.5-10.1 [facility] Work Phone: Serum or plasma creatinine m easurement (mass/volume)on 11-10-2021 Creatinine [Mass/Vol] 0.92 mg/dL 0.55-1.02 [facility] Work Phone: Comment on above: The validity of the calculated GFR & GFRAA in patients over 70 years has not been determined. Clinical correlation is essential. Serum or plasma urea nitroge n measurement (mass/volume)on 11-10-2021 Urea nitrogen [Mass/Vol] 29 mg/dL 7-18 [facility] Work Phone: Thin prep Papanicolaou smear with manual screeningon 11-10-2021 Thin prep Papanicolaou smear with manual screening 14 U/L 15-37 [facility] Work Phone: Thin prep Papanicolaou smear with manual screening 6 5-15 [facility] Work Phone: PROGRESSon 04-29-2018 Protein mass conc HNO ID: [id number] thor: Candie Key PageService: (none)Author Type: Nurse PractitionerType: Progress NotesFiled: 04/29/2018 6:39 PMNote Text:Patient triaged. [facility] with leftsubconjunctival hemorrhage, denies injury, trauma [...] or worsening symptoms proceed to ER [facility] [facility] Vital Signs Date Time Vital Sign Value Performing Clinician [facility] 04-07-2025 14:28-0400 Body temperature 98.4 [degF] Dr. Danny Herrera MD Work Phone: [facility] 04-07-2025 14:28-0400 Diastolic blood pressure 71 mm[Hg] Dr. Danny Herrera MD Work Phone: [facility] 04-07-2025 14:28-0400 Heart rate 98 /min Dr. Danny Herrera MD Work Phone: [facility] 04-07-2025 14:28-0400 Respiratory rate 16 /min Dr. Danny Herrera MD Work Phone: [facility] 04-07-2025 14:28-0400 SaO2% (BldA) [Mass fraction] 100 % Dr. Danny Herrera MD Work Phone: [facility] 04-07-2025 14:28-0400 Systolic blood pressure 138 mm[Hg] Dr. Danny Herrera MD Work Phone: [facility] 03-08-2025 14:34-0400 Body height 154.[address] Danny Herrera MD Work Phone: [facility] 03-08-2025 14:34-0400 Body temperature 98 [degF] Dr. Danny Herrera MD Work Phone: [facility] 03-08-2025 14:34-0400 Diastolic blood pressure 74 mm[Hg] Dr. Danny Herrera MD Work Phone: [facility] 03-08-2025 14:34-0400 Heart rate 105 /min Dr. Danny Herrera MD Work Phone: [facility] 03-08-2025 14:34-0400 Respiratory rate 16 /min Dr. Danny Herrera MD Work Phone: [facility] 03-08-2025 14:34-0400 SaO2% (BldA) [Mass fraction] 95 % Dr. Danny Herrera MD Work Phone: [facility] 03-08-2025 14:34-0400 Systolic blood pressure 161 mm[Hg] Dr. Danny Herrera MD Work Phone: [facility] 03-01-2025 07:56-0400 Body height 154.[address] Danny Herrera MD Work Phone: [facility] 03-01-2025 07:56-0400 Body mass index (BMI) [Ratio] 28.5 kg/m2 Dr. Danny Herrera MD Work Phone: [facility] 03-01-2025 07:56-0400 Body temperature 98.6 [degF] Dr. Danny Herrera MD Work Phone: [facility] 03-01-2025 07:56-0400 Body weight 68.[address] Danyn Herrera MD Work Phone: [facility] 03-01-2025 07:56-0400 Diastolic blood pressure 70 mm[Hg] Dr. Danny Herrera MD Work Phone: [facility] 03-01-2025 07:56-0400 Heart rate 108 /min Dr. Danny Herrera MD Work Phone: [facility] 03-01-2025 07:56-0400 Respiratory rate 15 /min Dr. Danny Herrera MD Work Phone: [facility] 03-01-2025 07:56-0400 SaO2% (BldA) [Mass fraction] 97 % Dr. Danny Herrera MD Work Phone: [facility] 03-01-2025 07:56-0400 Systolic blood pressure 159 mm[Hg] Dr. Danny Herrera MD Work Phone: [facility] 01-13-2025 08:07-0400 Body temperature 98.4 [degF] Dr. Danny Herrera MD Work Phone: [facility] 01-13-2025 08:07-0400 Diastolic blood pressure 71 mm[Hg] Dr. Danny Herrera MD Work Phone: [facility] 01-13-2025 08:07-0400 Heart rate 101 /min Dr. Danny Herrera MD Work Phone: [facility] 01-13-2025 08:07-0400 Respiratory rate 17 /min Dr. Danny Herrera MD Work Phone: [facility] 01-13-2025 08:07-0400 SaO2% (BldA) [Mass fraction] 97 % Dr. Danny Herrera MD Work Phone: [facility] 01-13-2025 08:07-0400 Systolic blood pressure 153 mm[Hg] Dr. Danny Herrera MD Work Phone: [facility] 12-15-2024 10:20-0400 Body mass index (BMI) [Ratio] 31.5 kg/m2 Dr. Danny Herrera MD Work Phone: [facility] 12-15-2024 10:20-0400 Body temperature 98.2 [degF] Dr. Danny Herrera MD Work Phone: [facility] 12-15-2024 10:20-0400 Diastolic blood pressure 69 mm[Hg] Dr. Danny Herrera MD Work Phone: [facility] 12-15-2024 10:20-0400 Heart rate 112 /min Dr. Danny Herrera MD Work Phone: [facility] 12-15-2024 10:20-0400 Respiratory rate 18 /min Dr. Danny Herrera MD Work Phone: [facility] 12-15-2024 10:20-0400 Systolic blood pressure 155 mm[Hg] Dr. Danny Herrera MD Work Phone: [facility] 12-09-2024 00:29-0400 Body weight 75.[address] Danny Herrera MD Work Phone: [facility] 12-01-2024 10:23-0400 Body mass index (BMI) [Ratio] 31.5 kg/m2 Dr. Danny Herrera MD Work Phone: [facility] 12-01-2024 10:23-0400 Body temperature 99.3 [degF] Dr. Danny Herrera MD Work Phone: [facility] 12-01-2024 10:23-0400 Diastolic blood pressure 81 mm[Hg] Dr. Danny Herrera MD Work Phone: [facility] 12-01-2024 10:23-0400 Heart rate 106 /min Dr. Danny Herrera MD Work Phone: [facility] 12-01-2024 10:23-0400 Respiratory rate 14 /min Dr. Danny Herrera MD Work Phone: [facility] 12-01-2024 10:23-0400 Systolic blood pressure 154 mm[Hg] Dr. Danny Herrera MD Work Phone: [facility] 11-09-2024 00:21-0400 Body weight 75.[address] Danny Herrera MD Work Phone: [facility] 11-03-2024 11:16-0400 Body mass index (BMI) [Ratio] 31.5 kg/m2 Dr. Danny Herrera MD Work Phone: [facility] 11-03-2024 11:16-0400 Body temperature 97.5 [degF] Dr. Danny Herrera MD Work Phone: [facility] 11-03-2024 11:16-0400 Diastolic blood pressure 72 mm[Hg] Dr. Danny Herrera MD Work Phone: [facility] 11-03-2024 11:16-0400 Heart rate 94 /min Dr. Danny Herrera MD Work Phone: [facility] 11-03-2024 11:16-0400 Respiratory rate 18 /min Dr. Danny Herrera MD Work Phone: [facility] 11-03-2024 11:16-0400 Systolic blood pressure 134 mm[Hg] Dr. Danny Herrera MD Work Phone: [facility] 11-01-2024 08:13-0400 Body height 154.[address] Danny Herrera MD Work Phone: [facility] 11-01-2024 08:13-0400 Body mass index (BMI) [Ratio] 29.5 kg/m2 Dr. Danny Herrera MD Work Phone: [facility] 11-01-2024 08:13-0400 Body temperature 98.2 [degF] Dr. Danny Herrera MD Work Phone: [facility] 11-01-2024 08:13-0400 Body weight 70.[address] Danny Herrera MD Work Phone: [facility] 11-01-2024 08:13-0400 Diastolic blood pressure 72 mm[Hg] Dr. Danny Herrera MD Work Phone: [facility] 11-01-2024 08:13-0400 Heart rate 113 /min Dr. Danny Herrera MD Work Phone: [facility] 11-01-2024 08:13-0400 Respiratory rate 18 /min Dr. Danny Herrera MD Work Phone: [facility] 11-01-2024 08:13-0400 SaO2% (BldA) [Mass fraction] 98 % Dr. Danny Herrera MD Work Phone: [facility] 11-01-2024 08:13-0400 Systolic blood pressure 138 mm[Hg] Dr. Danny Herrera MD Work Phone: [facility] 10-09-2024 01:23-0500 Body weight 75.[address] Danny Herrera MD Work Phone: [facility] 10-06-2024 11:15-0500 Body mass index (BMI) [Ratio] 31.5 kg/m2 Dr. Danny Herrera MD Work Phone: [facility] 10-06-2024 11:15-0500 Body temperature 97.2 [degF] Dr. Danny Herrera MD Work Phone: [facility] 10-06-2024 11:15-0500 Diastolic blood pressure 79 mm[Hg] Dr. Danny Herrera MD Work Phone: [facility] 10-06-2024 11:15-0500 Heart rate 116 /min Dr. Danny Herrera MD Work Phone: [facility] 10-06-2024 11:15-0500 Respiratory rate 18 /min Dr. Danny Herrera MD Work Phone: [facility] 10-06-2024 11:15-0500 Systolic blood pressure 162 mm[Hg] Dr. Danny Herrera MD Work Phone: [facility] 10-05-2024 20:35-0500 Body temperature 97.5 [degF] Dr. Danny Herrera MD Work Phone: [facility] 10-05-2024 20:35-0500 Diastolic blood pressure 84 mm[Hg] Dr. Danny Herrera MD Work Phone: [facility] 10-05-2024 20:35-0500 Heart rate 106 /min Dr. Danny Herrera MD Work Phone: [facility] 10-05-2024 20:35-0500 Respiratory rate 15 /min Dr. Danny Herrera MD Work Phone: [facility] 10-05-2024 20:35-0500 SaO2% (BldA) [Mass fraction] 99 % Dr. Danny Herrera MD Work Phone: [facility] 10-05-2024 20:35-0500 Systolic blood pressure 168 mm[Hg] Dr. Danny Herrera MD Work Phone: [facility] 10-01-2024 15:23-0500 Body temperature 98.2 [degF] Dr. Danny Herrera MD Work Phone: [facility] 10-01-2024 15:23-0500 Diastolic blood pressure 70 mm[Hg] Dr. Danny Herrera MD Work Phone: [facility] 10-01-2024 15:23-0500 Heart rate 104 /min Dr. Danny Herrera MD Work Phone: [facility] 10-01-2024 15:23-0500 Respiratory rate 16 /min Dr. Danny Herrera MD Work Phone: [facility] 10-01-2024 15:23-0500 SaO2% (BldA) [Mass fraction] 97 % Dr. Danny Herrera MD Work Phone: [facility] 10-01-2024 15:23-0500 Systolic blood pressure 144 mm[Hg] Dr. Danny Herrera MD Work Phone: [facility] 10-01-2024 10:19-0500 Body mass index (BMI) [Ratio] 29.7 kg/m2 Dr. Danny Herrera MD Work Phone: [facility] 10-01-2024 10:19-0500 Body weight 71.[address] Danny Herrera MD Work Phone: [facility] 09-17-2024 14:11-0500 Body temperature 97.9 [degF] Dr. Danny Herrera MD Work Phone: [facility] 09-17-2024 14:11-0500 Diastolic blood pressure 70 mm[Hg] Dr. Danny Herrera MD Work Phone: [facility] 09-17-2024 14:11-0500 Heart rate 109 /min Dr. Danny Herrera MD Work Phone: [facility] 09-17-2024 14:11-0500 Respiratory rate 16 /min Dr. Danny Herrera MD Work Phone: [facility] 09-17-2024 14:11-0500 SaO2% (BldA) [Mass fraction] 99 % Dr. Danny Herrera MD Work Phone: [facility] 09-17-2024 14:11-0500 Systolic blood pressure 140 mm[Hg] Dr. Danny Herrera MD Work Phone: [facility] 09-11-2024 02:42-0500 Body weight 75.[address] Danny Herrera MD Work Phone: [facility] 09-08-2024 10:49-0500 Body mass index (BMI) [Ratio] 31.5 kg/m2 Dr. Danny Herrera MD Work Phone: [facility] 09-08-2024 10:49-0500 Diastolic blood pressure 77 mm[Hg] Dr. Danny Herrera MD Work Phone: [facility] 09-08-2024 10:49-0500 Heart rate 109 /min Dr. Danny Herrera MD Work Phone: [facility] 09-08-2024 10:49-0500 Respiratory rate 16 /min Dr. Danny Herrera MD Work Phone: [facility] 09-08-2024 10:49-0500 Systolic blood pressure 147 mm[Hg] Dr. Danny Herrera MD Work Phone: [facility] 09-01-2024 10:30-0500 Body temperature 97.2 [degF] Dr. Danny Herrera MD Work Phone: [facility] 09-01-2024 10:30-0500 Body weight 75.[address] Danny Hererra MD Work Phone: [facility] 07-22-2024 08:27-0500 Body mass index (BMI) [Ratio] 31.5 kg/m2 Dr. Danny Herrera MD Work Phone: [facility] 07-22-2024 08:27-0500 Body temperature 98.4 [degF] Dr. Danny Herrera MD Work Phone: [facility] 07-22-2024 08:27-0500 Body weight 75.[address] Danny Herrera MD Work Phone: [facility] 07-22-2024 08:27-0500 Diastolic blood pressure 84 mm[Hg] Dr. Danny Herrera MD Work Phone: [facility] 07-22-2024 08:27-0500 Heart rate 108 /min Dr. Danny Herrera MD Work Phone: [facility] 07-22-2024 08:27-0500 Respiratory rate 16 /min Dr. Danny Herrera MD Work Phone: [facility] 07-22-2024 08:27-0500 SaO2% (BldA) [Mass fraction] 97 % Dr. Danny Herrera MD Work Phone: [facility] 07-22-2024 08:27-0500 Systolic blood pressure 146 mm[Hg] Dr. Danny Herrera MD Work Phone: [facility] 11-27-2022 08:05-0400 Body height 157.[address] Danny Herrera Work Phone: [facility] 11-27-2022 08:05-0400 Body mass index (BMI) [Ratio] 30.7 kg/m2 Dr. Danny Herrera Work Phone: [facility] 11-27-2022 08:05-0400 Body temperature 97.4 [degF] Dr. Danny Herrera Work Phone: [facility] 11-27-2022 08:05-0400 Body weight 76.[address] Danny Herrera Work Phone: [facility] 11-27-2022 08:05-0400 Diastolic blood pressure 84 mm[Hg] Dr. Danny Herrera Work Phone: [facility] 11-27-2022 08:05-0400 Heart rate 107 /min Dr. Danny Herrera Work Phone: [facility] 11-27-2022 08:05-0400 Respiratory rate 18 /min Dr. Danny Herrera Work Phone: [facility] 11-27-2022 08:05-0400 SaO2% (BldA) [Mass fraction] 100 % Dr. Danny Herrera Work Phone: [facility] 11-27-2022 08:05-0400 Systolic blood pressure 148 mm[Hg] Dr. Danny Herrera Work Phone: [facility] 08-08-2021 07:16-0500 Body height 157.[address] Danny Herrera Work Phone: [facility] Work Phone: 08-08-2021 07:16-0500 Body mass index (BMI) [Ratio] 29.4 kg/m2 Dr. Danny Herrera Work Phone: [facility] Work Phone: 08-08-2021 07:16-0500 Body temperature 97.6 [degF] Dr. Danny Herrera Work Phone: [facility] Work Phone: 08-08-2021 07:16-0500 Body weight 73.[address] Danny Herrera Work Phone: [facility] Work Phone: 08-08-2021 07:16-0500 Diastolic blood pressure 74 mm[Hg] Dr. Danny Herrera Work Phone: [facility] Work Phone: 08-08-2021 07:16-0500 Heart rate 108 /min Dr. Danny Herrera Work Phone: [facility] Work Phone: 08-08-2021 07:16-0500 Respiratory rate 14 /min Dr. Danny Herrera Work Phone: [facility] Work Phone: 08-08-2021 07:16-0500 SaO2% (BldA) [Mass fraction] 99 % Dr. Danny Herrera Work Phone: [facility] Work Phone: 08-08-2021 07:16-0500 Systolic blood pressure 130 mm[Hg] Dr. Danny Herrera Work Phone: [facility] Work Phone: Encounters Encounter Date Encounter Type Care Provider Facility Start: 04-07-2025 End: 04-07-[address] Paresh Arellano MD -[facility] Work Phone: Start: 04-07-2025 End: 04-07-[address] Danny Herrera MD Work Phone: -[facility] Start: 04-04-2025 ambulatory Danny Herrera [facility] ty:[facility] Start: 03-25-2025 End: 03-25-[address] Danny Herrera MD Work Phone: -[facility] [place] Start: 03-25-2025 End: 03-25-[address] Leeanna Johnson MD -[facility] [place] Work Phone: Start: 03-25-2025 End: 03-25-2025 ambulatory Danny Herrera Facility:[facility] Start: 03-11-2025 End: 03-11-[address] Danny Herrera MD Work Phone: -[facility] [place] Start: 03-11-2025 End: 03-11-[address] Leeanna Johnson MD -[facility] [place] Work Phone: Start: 03-11-2025 End: 03-11-2025 ambulatory Leeanna Johnson Facility:[facility] Start: 03-08-2025 End: 03-08-[address] Paresh Arellano MD -[facility] Work Phone: Start: 03-08-2025 End: 03-08-[address] Danny Herrera MD Work Phone: -[facility] Start: 03-08-2025 End: 03-08-2025 ambulatory [facility] Facility:[facility] Start: 03-01-2025 End: 03-01-[address] Paresh Arellano MD -[facility] Work Phone: Start: 03-01-2025 End: 03-01-[address] Danny Herrera MD Work Phone: -[facility] Start: 03-01-2025 End: 03-01-2025 ambulatory Paresh Arellano Facility:[facility] Start: 02-18-2025 End: 02-18-[address] Danny Herrera MD Work Phone: -[facility] Start: 02-18-2025 End: 02-18-[address] Paresh Arellano MD -[facility] Work Phone: Start: 02-18-2025 End: 02-18-2025 ambulatory Danny Herrera Facility:[facility] Start: 01-13-2025 End: 01-13-[address] Paresh Arellano MD -[facility] Work Phone: Start: 01-13-2025 End: 01-13-[address] Danny Herrera MD Work Phone: [facility] Work Phone: Start: 12-15-2024 End: 01-06-[address] Thompson Wright [facility] Work Phone: Start: 12-15-2024 End: 01-06-[address] Danny Herrera MD Work Phone: [facility] Work Phone: Start: 12-01-2024 End: 12-08-2024 ambulatory [facility] Facility:[facility] Start: 12-01-2024 End: 12-08-[address] Thompson [facility] Work Phone: Start: 11-03-2024 End: 11-08-[address] Danny Herrera MD Work Phone: [facility] Work Phone: Start: 11-03-2024 End: 11-08-[address] Thompson Wright DPM [facility] [place] Work Phone: Start: 11-01-2024 End: 11-01-[address] Danny Herrera MD -[facility] Work Phone: Start: 11-01-2024 End: 11-01-[address] Danny Herrera MD [facility] Start: 11-01-2024 End: 11-01-2024 ambulatory [facility] Facility:[facility] Start: 10-07-2024 ambulatory [facility] Facili ty:[facility] Start: 10-06-2024 End: 10-08-2024 ambulatory [facility] Facility:[facility] Start: 10-06-2024 End: 10-08-[address] Thompson Wright DPM [facility] [place] Work Phone: Start: 10-05-2024 End: 10-05-2024 Emergency department patient visit ED PHYSICIAN PROVIDER -Emergency Department Work Phone: Start: 10-01-2024 End: 10-01-2024 Non-patient / Non-visit Dr. Heriberto Wyatt MD -[facility] Work Phone: Start: 10-01-2024 End: 10-01-2024 Admission to same day surgery center Dr. Thompson Wright [facility] Start: 10-01-2024 End: 10-01-2024 ambulatory [facility] Facility:[facility] Start: 09-23-2024 End: 09-23-[address] Paresh Arellano MD -Labor[facility], [place] Work Phone: Start: 09-22-2024 End: 09-23-2024 ambulatory [facility] Facility:[facility] Start: 09-17-2024 Encounter for other preprocedural examination [facility] Start: 09-17-2024 End: 09-17-[address] Danny Herrera MD -Laboratory, [place] Start: 09-17-2024 End: 09-17-[address] Danny Herrera MD -[facility] Work Phone: Start: 09-17-2024 End: 09-17-[address] Danny Herrera MD [facility] Start: 09-17-2024 End: 09-17-2024 ambulatory [facility] Facility:[facility] Start: 09-17-2024 End: 09-17-2024 ambulatory [facility] Facility:[facility] Start: 09-10-2024 End: 09-10-[address] Thompson Wright DPM -[facility] Work Phone: Start: 09-10-2024 End: 09-10-2024 ambulatory [facility] Facility:[facility] Start: 09-08-2024 End: 09-10-2024 ambulatory [facility] Facility:[facility] Start: 09-08-2024 End: 09-10-[address] Thompson Wright [facility] Work Phone: Start: 07-22-2024 End: 07-22-[address] Paresh Arellano MD -[facility] Work Phone: Start: 07-22-2024 End: 07-22-2024 ambulatory Danny Patele Facility:[facility] Start: 06-29-2024 End: 06-29-2024 ambulatory Efsloane Patele Facility:[facility] Start: 06-21-2024 End: 06-21-2024 ambulatory Efsloane Patele Facility:[facility] Start: 06-08-2024 End: 06-08-2024 ambulatory Efsloane Patele Facility:[facility] Start: 05-28-2024 End: 05-28-2024 ambulatory Eforinongjorge Patele Facility:[facility] Start: 05-24-2024 ambulatory Danny Patele Facili ty:[facility] Start: 05-23-2024 ambulatory Efsloane Patele Facili ty:[facility] Start: 05-23-2024 End: 05-24-2024 Evaluation and management of inpatient Danny Patele Facility:[facility] Start: 10-16-2023 End: 10-16-2023 ambulatory [facility] Work Phone: Start: 10-16-2023 End: 10-16-2023 Patient encounter procedure [facility] Work Phone: Start: 11-27-2022 End: 11-27-[address] Danny Herrera Work Phone: [facility] Work Phone: Start: 11-27-2022 End: 11-27-2022 Encounter for general adult medical examination without abnormal findings Dr. Danny Herrera Work Phone: [facility] Start: 11-27-2022 End: 11-27-[address] Danny Herrera Work Phone: [facility] Start: 11-01-2022 End: 11-01-[address] Danny Herrera Work Phone: [facility] Start: 12-25-[address] Rach Herrera Work Phone: [facility] Start: 11-10-2021 End: 11-10-[address] Danny Herrera Work Phone: [facility] Start: 08-08-2021 End: 08-08-[address] Danny Herrera Work Phone: [facility] Start: 02-09-[address] Rach Herrera Work Phone: [facility] Procedures Date Procedure Procedure Detail Performing Clinician Start: 03-11-2025 [address] C antibody measurement Dr. Chet Herrera MD Work Phone: Comment on above: Reactive: Presumptive evidence of antibo dies to HCV. Follow CDC recommendations for supplemental testing.Non-Reactive: Antibodies to HCV were not detected; does not exclude the possibility of exposure to HCVReactive Results are presumptive evidence of antibodies to HCV. Follow CDC recommendations for supplemental testing.Order confirmation testing: HCV Quant by PCR testing - HCVPCR #[id number] Non Reactive: < 0.8 Equivocal: >/= 0.8 to < 1.0 Reactive: >/= 1.0The CDC requires that a reactive/equivocal HCV antibody result be sent out for confirmation. HCV Quant by PCR testing. Start: 03-11-2025 In-vitro immunologic test Dr. Danny Herrera MD Work Phone: Comment on above: QuantiFERON-TB Gold Plus is a qualitativ e indirect test forM tuberculosis infection (including disease) and isintended for use in conjunction with risk assessment,radiography, and other medical and diagnostic evaluations.The QuantiFERON-TB Gold Plus result is determined bysubtracting the Nil value from either TB antigen (Ag)value. The Mitogen tube serves as a control for the test. No response to M tub erculosis antigens detected.Infection with M tuberculosis is unlikely, [...] the productionof interferon gamma. Chemiluminescence immunoassaymethodologyPerformed at: [employer] [id number] Director: Jaxon Dunham PhD, Phone: [phone] Start: 03-11-2025 X-ray of chest, PA and lateral views Dr. Danny Herrera MD Work Phone: Start: 03-01-2025 Folic acid measurement, RBC Dr. Jann Herrera MD Work Phone: Comment on above: Performed at: [id number] [place], [place] [id number] Director: Jaxon Dunham PhD, Phone: [phone] Start: 10-27-[address] Jann Herrera MD Work Phone: Start: 10-27-[address] Danny Herrera MD Work Phone: Start: 10-27-2024 Microbial culture, routine Dr. Danny Herrera MD Work Phone: Start: 09-17-2024 Measurement of renal function Dr. Genet Herrera MD Work Phone: Comment on above: GFR Calc Start: 09-17-2024 Vitamin D, 25-hydroxy measurement Dr. Kali Herrera MD Work Phone: Comment on above: Vitamin D 25(OH) Status Range Deficiency <20 ng/mL (50nmol/L) Insufficiency 20 - 30 ng/mL (50 - 75 nmol/L) Sufficiency 30 - 100 ng/mL (75 - 250 nmol/L) Toxicity >100 ng/mL (>250 nmol/L) Start: 09-10-2024 MRI of joint of lower extremity Dr. Dayo Herrera MD Work Phone: Start: 09-01-2024 X-ray of foot, three or more views Dr. Rach Herrera MD Work Phone: Plan of Treatment Date Care Activity Detail Author Start: 03-01-2025 Ferritin [Mass/volum e] in Serum or Plasma [facility] Start: 03-01-2025 Folic acid measureme nt, RBC [facility] Start: 03-01-2025 Iron [Mass/mass] in Unspecified specimen [facility] Start: 03-01-2025 Vitamin B12 measurement [facility] Start: 10-01-2024 Adjt tis trns/reargm t f/c/c/m/n/a/g/h/f 10sqcm/< TIS TRNFR F/C/C/M/N/A/G/H/F [facility] Start: 10-01-2024 Anes integ extremiti es ant trunk & perineum nos ANESTH SKIN EXT/PER/ATRUNK [facility] Start: 10-01-2024 Exc b9 lesion mrgn x cp sk tg s/n/h/f/g 3.1-4.0cm EXC H-F-NK-SP B9+DEVIN 3.1-4 [facility] Start: 10-01-2024 Patient discharge [facility] Start: 09-17-2024 Evaluation of diagno stic study results [facility] Start: 08-23-[address] [facility] Work Phone: Hematocrit [Volume Fraction] of Blood [facility] Microalbumin [Mass/v olume] in Urine [facility] Patient Education Post-Op Tips: Foot [facility] Work Phone: Patient referral [facility] Work Phone: XR Shoulder GE 2 Views [facility] Immunizations Immunization Date Immunization Notes Care Provider Radha bradshaw 06-21-2020 influenza, injectable,quadrivalent , preservative free, pediatric Dr. Danny Herrera Work Phone: [facility] 06-21-2020 influenza, seasonal, injectable, preservative free Dr. Danny Herrera MD Work Phone: [facility] 06-21-2020 Flucelvax Quad [phone] (PF) (flu vac qs 2020(4 yr up)CD(PF)) 60 mcg ([address] Danny Herrera Work Phone: [facility] Work Phone: Payers Date Payer Category Payer Medicare [id number] 2024 Private Health Insurance [id number] 2024 Self-pay [id number] 2014 Unknown [id number] Unknown [id number] 2.16.8 40.1.333178.3.579.2.462 Unknown [id number] 2.16.8 40.1.643552.3.579.2.462 Unknown [id number] 2.16.8 40.1.691307.3.579.2.462 Unknown [id number] 2.16.8 40.1.543222.3.579.2.462 Unknown [id number] 2.16.8 40.1.256653.3.579.2.462 Unknown [id number] 2.16.8 40.1.671237.3.579.2.462 Unknown [id number] 2.16.8 40.1.491017.3.579.2.462 Unknown [id number] 2.16.8 40.1.338120.3.579.2.462 Unknown [id number] 2.16.8 40.1.514602.3.579.2.462 Unknown [id number] 2.16.8 40.1.066028.3.579.2.462 Unknown [id number] 2.16.8 40.1.158328.3.579.2.462 Unknown [id number] 2.16.8 40.1.334102.3.579.2.462 Unknown [id number] 2.16.8 40.1.878014.3.579.2.462 Unknown [id number] 2.16.8 40.1.217266.3.579.2.462 Unknown [id number] 2.16.8 40.1.695215.3.579.2.462 Unknown [id number] 2.16.8 40.1.697476.3.579.2.462 Unknown [id number] 2.16.8 40.1.129480.3.579.2.462 Unknown [id number] 2.16.8 40.1.366812.3.579.2.462 Unknown [id number] 2.16.8 40.1.207647.3.579.2.462 Unknown [id number] 2.16.8 40.1.296705.3.579.2.462 Unknown [id number] 2.16.8 40.1.554140.3.579.2.462 Unknown [id number] 2.16.8 40.1.801606.3.579.2.462 Unknown [id number] 2.16.8 40.1.406079.3.579.2.462 Unknown [id number] 2.16.8 40.1.259292.3.579.2.462 Unknown [id number] 2.16.8 40.1.704928.3.579.2.462 Unknown [id number] 2.16.8 40.1.477949.3.579.2.462 Unknown [id number] 2.16.8 40.1.723734.3.579.2.462 Unknown [id number] 2.16.8 40.1.467059.3.579.2.462 Unknown [id number] 2.16.8 40.1.424995.3.579.2.462 Unknown [id number] 2.16.8 40.1.055215.3.579.2.462 Unknown [id number] 2.16.8 40.1.460757.3.579.2.462 Unknown [id number] 2.16.8 40.1.208388.3.579.2.462 Unknown [id number] 2.16.8 40.1.410090.3.579.2.462 Unknown [id number] 2.16.8 40.1.110314.3.579.2.462 Social History Date Type Detail Facility Start: 08-08-2021 End: 04-14-2023 Tobacco smoking status NHIS Unknown if ever smoked [facility] Start: 09-05-2017 None [facility] Start: 09-05-2017 Spouse/ Signif icant Other [facility] Start: 09-05-2017 Non-smoker [facility] Start: 1955 Sex Assigned At Female [facility] Start: 09-30-2024 Tobacco smoking status NHIS Never smoked tobacco (finding) [facility] Start: 11-09-2024 Sex Female (finding) [facility] Goals Date Patient Goal Desired Activity /State Mental Status Date Assessment Result Facility 10-01-2024 Cognitive function Level Of Cons ciousness Follows Commands;Drowsy [facility] Work Phone: 10-01-2024 Cognitive function Arousable To Voice/Nam e [facility] Work Phone: Clinical Notes 05-24-2024 to 03-11-2025 Note Date & Type Note Facility 03-11-2025 Radiology Diagnostic study note [facility] Imaging Services [address] [place], [place] [address] Chest PA and Lateral MR#: [id number] Acct: [id number] Name: MILIND BOWMAN Rep #: [id number] : 1955 F 69 From: Gelacio Genao MD PCP: Dr. Danny Herrera MD Status: R EG CLI Study:Chest PA and Lateral Date of Exam: 03/11/25 Exam# [id number] Ordering Dr: Leeanna Johnson MD PROCEDURE: CHEST PA AND LATERAL 03/11/2025 REASON FOR EXAM: ARTHGROPATHY TECHNIQUE: CHEST PA AND LATERAL COMPARISON: AP chest of 05/23/2024. RAD/Chest PA and Lateral IMPRESSION: Mild lower thoracic levoscoliosis is seen. At least mild degenerative changes of the visualized spine are noted. Lungs demonstrate mild biapical pleural-parenchymal scarring. Mild increased interstitial markings are noted, nonspecific in nature. No focal infiltrate is seen. No pleural effusion or pneumothorax is noted. The cardiomediastinal silhouette is within the normal range, and unchanged. Reading Location: [facility] CC: Dr. Danny Herrera MD; Dr. Leeanna Johnson MD ~ [employer] Worker: Signed [facility] 12-15-2024 Progress note Note Date/Time December 15, 2024 11:11a m [facility] [address] [place] [address] Progress Note - Wound Care 12/15/24 1109 MR#: [id number] Acct: [id number] Name: MILIND BOWMAN Rep #:[id number] : 1955 69 From: Thompson GARCIA PCP: [...] Post-Debridement Measurements and Additional Note: Post-Debridement Measurements/Treatment [facility] Nurse 1 - General Ulcer Assessment Start: 12/15/24 10:20 Freq: Status: Active Protocol: DERRICK Activity Type Activity Date Activity User E-sign Co-sign Detail Recorded Client Recorded Date Recorded By Document 12/15/24 10:20 PA [id number] 12/15/24 10:26 PA 12/15/24 10:20 - Today's Visit Information Type of service Follow-up Visit (Physician/TELESALES PROFESSIONAL ) Arrival Mode Ambulatory Accompanied by Patient [...] Recorded Date Recorded By Document 12/15/24 10:20 PA [id number] 12/15/24 10:26 PA 12/15/24 10:20 Wound Center Nurse 1 #1 [...] Recorded Date Recorded By Document 12/15/24 10:44 [id number] 12/15/24 10:45 12/15/24 10:44 Wound Center Nurse [...] Recorded Date Recorded By Document 12/15/24 10:45 [id number] 12/15/24 10:45 12/15/24 10:45 Is Patient Pain [...] Cosigner Signature (if applicable): CC: ~ Signed [facility] Work Phone: 1(821) 804-166305-07-2025 Progress note [facility] [address] [place] [address] Progress Note - Wound Care 12/15/24 1109 MR#: [id number] Acct: [id number] Name: MILIND BOWMAN Rep #:[id number] : 1955 69 From: Thompson Ferreira PM [...] Recorded Date Recorded By Document 12/15/24 10:20 PA [id number] 12/15/24 10:26 PA 12/15/24 10:20 WC - Today's Visit Information Type of service Follow-up Visit (Physician/TELESALES PROFESSIONAL ) Arrival Mode Ambulatory Accompanied by Patient [...] Recorded Date Recorded By Document 12/15/24 10:20 PA [id number] 12/15/24 10:26 PA 12/15/24 10:20 Wound Center Nurse 1 #1 [...] Recorded Date Recorded By Document 12/15/24 10:44 [id number] 12/15/24 10:45 12/15/24 10:44 Wound Center Nurse [...] Recorded Date Recorded By Document 12/15/24 10:45 JF [id number] 12/15/24 10:45 12/15/24 10:45 Is Patient Pain [...] Cosigner Signature (if applicable): CC: ~ Signed [facility]05-07-2025 Evaluation note* Diagnosis Onset Date Resolution Status Admit Date 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 December 15, 2024 8: 18am Epilepsy acute January 13, 2025 7:55am Anemia acute March 01 7:54am Epilepsy acute March 01 7:54am Musculoskeletal pain acute March 01, 2025 7:54am Fatigue noneactive March 08 2:23pm [facility] Work Phone: 1(673) 832-936604-23-2025 Evaluation note* Diagnosis Onset Date Resolution Status [...] Musculoskeletal pain acute March 01, 2025 7:54am [facility] Work Phone: 1(342) 946-357004-23-2025 Evaluation note* Diagnosis Onset Date Resolution Status [...] Musculoskeletal pain acute March 01, 2025 7:54am Fatigue noneactive March 08 2:23pm [facility] Work Phone: 1(753) 387-987503-26-2025 Progress note Author Thompson Wright [facility] Note Date/Time November 03, 2024 2:1 8pm [facility] [address] [place] [address] Progress Note - Wound Care 11/03/24 1415 MR#: [id number] Acct: [id number] Name: MILIND BOWMAN Rep #:[id number] : 1955 69 From: Thompson Ferreira PM [...] Date Recorded By Document 10/12/24 08:20 ML [id number] 10/12/24 08:37 ML Document 10/20/24 11:01 MT [id number] 10/20/24 11:18 MT Document 10/27/24 11:16 GM [id number] 10/27/24 11:30 GM Document 11/03/24 11:16 KW [id number] 11/03/24 11:30 KW 10/12/24 10/20/24 10/27/24 08:20 11:01 11:16 - Today's Visit Information Type of service Nurse-only Follow-up Visit Follow-up Visit Visit (Physician/TELESALES PROFESSIONAL (Physician/TELESALES PROFESSIONAL ) ) Arrival Mode Ambulatory, Ambulatory, Ambulatory, [...] Visit Information Type of service Follow-up Visit (Physician/TELESALES PROFESSIONAL ) Arrival Mode Ambulatory, Walker Transfer Assistance [...] Date Recorded By Document 10/20/24 11:01 MT [id number] 10/20/24 11:18 MT Document 10/27/24 11:16 GM [id number] 10/27/24 11:30 GM Document 11/03/24 11:16 KW [id number] 11/03/24 11:30 KW 10/20/24 10/27/24 11/03/24 11:01 [...] Amt Medium (34-66%) Large (67-100%) -Granulation Quality [place] Red -Slough/Fibrin No -Necrosis Amt Small (1-33%) [...] Recorded Date Recorded By Document 10/20/24 11:36 [id number] 10/20/24 11:38 Document 10/27/24 11:40 [id number] 10/27/24 11:42 Document 11/03/24 11:41 [id number] 11/03/24 11:47 10/20/24 10/27/24 11/03/24 11:36 11:40 [...] Date Recorded By Document 10/12/24 08:20 ML [id number] 10/12/24 08:37 ML Document 10/20/24 11:55 DL [id number] 10/20/24 11:57 DL Document 10/27/24 11:57 DL [id number] 10/27/24 11:59 DL Document 11/03/24 11:52 JF [id number] 11/03/24 11:53 JF 10/12/24 10/20/24 10/27/24 08:20 [...] with Secured with Tape Tape -Other Covering Cain Silvercell used today -Silvercel 1 -Wound Comment(s) Betadine and Dressing steri strips applied today applied per Dr. milagro Wright. LLE -Compression Wrap Cain Wrap Treatment Response Procedure Procedure Tolerated Well [...] Covering -Silvercel -Wound Comment(s) LLE -Compression Wrap Cain Wrap Treatment Response WC - Visit Discharge [...] antibiotic followed by dry sterile dressing and Cain wrap were applied to the left lower [...] Dr. Wright in 1 week. 11/03/24 1418 <Electronically signed by Thompson Wright DPM> Cosigner Signature (if applicable): CC: ~ Signed [facility] Work Phone: 1(745) 876-668703-26-2025 Progress note [facility] [address] [place] [address] Progress Note - Wound Care 11/03/24 1415 MR#: [id number] Acct: [id number] Name: MILIND BOWMAN Rep #:[id number] : 1955 69 From: Thompson Ferreira PM [...] Date Recorded By Document 10/12/24 08:20 ML [id number] 10/12/24 08:37 ML Document 10/20/24 11:01 MT [id number] 10/20/24 11:18 MT Document 10/27/24 11:16 GM [id number] 10/27/24 11:30 GM Document 11/03/24 11:16 KW [id number] 11/03/24 11:30 KW 10/12/24 10/20/24 10/27/24 08:20 11:01 11:16 - Today's Visit Information Type of service Nurse-only Follow-up Visit Follow-up Visit Visit (Physician/TELESALES PROFESSIONAL (Physician/TELESALES PROFESSIONAL ) ) Arrival Mode Ambulatory, Ambulatory, Ambulatory, [...] Visit Information Type of service Follow-up Visit (Physician/TELESALES PROFESSIONAL ) Arrival Mode Ambulatory, Walker Transfer Assistance [...] Recorded Date Recorded By Document 10/20/24 11:01 PA [id number] 10/20/24 11:18 MT Document 10/27/24 11:16 GM [id number] 10/27/24 11:30 GM Document 11/03/24 11:16 KW [id number] 11/03/24 11:30 KW 10/20/24 10/27/24 11/03/24 11:01 [...] Amt Medium (34-66%) Large (67-100%) -Granulation Quality [place] Red -Slough/Fibrin No -Necrosis Amt Small (1-33%) [...] Date Recorded By Document 10/20/24 11:36 JF [id number] 10/20/24 11:38 Document 10/27/24 11:40 JF [id number] 10/27/24 11:42 JF Document 11/03/24 11:41 JF [id number] 11/03/24 11:47 JF 10/20/24 10/27/24 11/03/24 11:36 11:40 11:41 Wound Center Nurse 2 #1 MED HEEL -Time 11:36 11:40 11:43 -Correct [...] Date Recorded By Document 10/12/24 08:20 ML [id number] 10/12/24 08:37 ML Document 10/20/24 11:55 DL [id number] 10/20/24 11:57 DL Document 10/27/24 11:57 DL [id number] 10/27/24 11:59 DL Document 11/03/24 11:52 JF [id number] 11/03/24 11:53 10/12/24 10/20/24 10/27/24 08:20 11:55 [...] with Secured with Tape Tape -Other Covering Cain Silvercell used today -Silvercel 1 -Wound Comment(s) Betadine and Dressing steri strips applied today applied per Dr. milagro Wright. LLE -Compression Wrap Cain Wrap Treatment Response Procedure Procedure Tolerated Well [...] Covering -Silvercel -Wound Comment(s) LLE -Compression Wrap Cain Wrap Treatment Response WC - Visit Discharge [...] antibiotic followed by dry sterile dressing and Cain wrap were applied to the left lower [...] Cosigner Signature (if applicable): CC: ~ Signed [facility]03-24-2025 Evaluation note* Diagnosis Onset Date Resolution Status Admit Date Health care maintenance acute [facility] 2024 8:00am Bilateral shoulder pain chronic [facility] 2024 8:00am Hypertension chronic November 01, 2024 [...] 18am Epilepsy acute January 13, 2025 7:55am [facility] Work Phone: 1([phone]) 589-523403-24-2025 Evaluation note* Diagnosis Onset Date Resolution Status Admit Date Health care maintenance acute [facility] 2024 8:00am Bilateral shoulder pain chronic [facility] 2024 8:00am Hypertension chronic November 01, 2024 [...] 2025 7:55am Anemia acute March 01 7:54am [facility] Work Phone: 1(313) 666-122003-19-2025 Progress note Author Thompson Wright [facility] Note Date/Time October 27, 2024 12: 42pm [facility] [address] [place] [address] Progress Note - Wound Care 10/27/24 1238 MR#: [id number] Acct: [id number] Name: MILIND BOWMAN Rep #:[id number] : 1955 69 From: Thompson Ferreira PM [...] Date Recorded By Document 10/12/24 08:20 ML [id number] 10/12/24 08:37 ML Document 10/20/24 11:01 MT [id number] 10/20/24 11:18 MT Document 10/27/24 11:16 GM [id number] 10/27/24 11:30 GM 10/12/24 10/20/24 10/27/24 08:20 11:01 11:16 - Today's Visit Information Type of service Nurse-only Follow-up Visit Follow-up Visit Visit (Physician/TELESALES PROFESSIONAL (Physician/TELESALES PROFESSIONAL ) ) Arrival Mode Ambulatory, Ambulatory, Ambulatory, [...] Recorded Date Recorded By Document 10/20/24 11:01 PA [id number] 10/20/24 11:18 MT Document 10/27/24 11:16 [id number] 10/27/24 11:30 10/20/24 10/27/24 11:01 11:16 Wound [...] Attached -Granulation Amt Medium (34-66%) -Granulation Quality [place] -Slough/Fibrin No -Necrosis Amt Small (1-33%) -Necrotic [...] Recorded Date Recorded By Document 10/20/24 11:36 [id number] 10/20/24 11:38 Document 10/27/24 11:40 [id number] 10/27/24 11:42 10/20/24 10/27/24 11:36 11:40 Wound [...] Date Recorded By Document 10/12/24 08:20 ML [id number] 10/12/24 08:37 ML Document 10/20/24 11:55 DL [id number] 10/20/24 11:57 DL Document 10/27/24 11:57 DL [id number] 10/27/24 11:59 DL 10/12/24 10/20/24 10/27/24 08:20 [...] with Secured with Tape Tape -Other Covering Cain Silvercell used today -Silvercel 1 -Wound Comment(s) Betadine and Dressing steri strips applied today applied per Dr. milagro Barnes. Kyle. LLE -Compression Wrap Cain Wrap Treatment Response Procedure Procedure Tolerated Well [...] assistance of a walker. She can take gdwp-hgd-ixkhiwg Tylenol as needed for pain control. Follow-up at the wound care center with Dr. Wright in 1 week. 10/27/24 1242 <Electronically signed by Thompson Wright DPM> Cosigner Signature (if applicable): CC: ~ Signed [facility] Work Phone: 1(837) 558-374503-19-2025 Progress note [facility] [address] [place] [address] Progress Note - Wound Care 10/27/24 1238 MR#: [id number] Acct: [id number] Name: MILIND BOWMAN Rep #:[id number] : 1955 69 From: Thompson Ferreira PM [...] Start: 10/12/24 08:20 Freq: Status: Active Protocol: RICKIET Activity Type Activity Date Activity User E-sign Co-sign Detail Recorded Client Recorded Date Recorded By Document 10/12/24 08:20 ML [id number] 10/12/24 08:37 ML Document 10/20/24 11:01 MT [id number] 10/20/24 11:18 MT Document 10/27/24 11:16 GM [id number] 10/27/24 11:30 GM 10/12/24 10/20/24 10/27/24 08:20 11:01 11:16 WC - Today's Visit Information Type of service Nurse-only Follow-up Visit Follow-up Visit Visit (Physician/TELESALES PROFESSIONAL (Physician/TELESALES PROFESSIONAL ) ) Arrival Mode Ambulatory, Ambulatory, Ambulatory, [...] Date Recorded By Document 10/20/24 11:01 MT [id number] 10/20/24 11:18 MT Document 10/27/24 11:16 GM [id number] 10/27/24 11:30 GM 10/20/24 10/27/24 11:01 11:16 Wound Center Nurse [...] Attached -Granulation Amt Medium (34-66%) -Granulation Quality [place] -Slough/Fibrin No -Necrosis Amt Small (1-33%) -Necrotic [...] Date Recorded By Document 10/20/24 11:36 JF [id number] 10/20/24 11:38 JF Document 10/27/24 11:40 JF [id number] 10/27/24 11:42 JF 10/20/24 10/27/24 11:36 11:40 [...] Numeric Is Patient Pain Free? Yes Yes WC - Nurse 3 - General Ulcer D/C NN Start: 10/12/24 08:20 Freq: Status: Active Protocol: Activity Type Activity Date Activity User E-sign Co-sign Detail Recorded Client Recorded Date Recorded By Document 10/12/24 08:20 ML [id number] 10/12/24 08:37 ML Document 10/20/24 11:55 DL [id number] 10/20/24 11:57 DL Document 10/27/24 11:57 DL [id number] 10/27/24 11:59 DL 10/12/24 10/20/24 10/27/24 08:20 [...] with Secured with Tape Tape -Other Covering Cain Silvercell used today -Silvercel 1 -Wound Comment(s) Betadine and Dressing steri strips applied today applied per Dr. milagro Wright. LLE -Compression Wrap Cain Wrap Treatment Response Procedure Procedure Tolerated Well [...] with assistanceof a walker. She can take dgfi-jeq-dxnzdah Tylenol as needed for pain control. Follow-up at the wound care center with Dr. Wright in 1 week. 10/27/24 1242 Cosigner Signature (if applicable): CC: ~ Signed [facility]03-12-2025 Progress note Author Thompson Wright [facility] Note Date/Time October 20, 2024 1:1 4pm [facility] [address] [place] [address] Progress Note - Wound Care 10/20/24 1312 MR#: [id number] Acct: [id number] Name: MILIND BOWMAN Rep #:[id number] : 1955 69 From: Thompson Ferreira PM [...] Date Recorded By Document 10/12/24 08:20 ML [id number] 10/12/24 08:37 ML Document 10/20/24 11:01 MT [id number] 10/20/24 11:18 MT 10/12/24 10/20/24 08:20 11:01 - Today's Visit Information Type of service Nurse-only Follow-up Visit Visit (Physician/TELESALES PROFESSIONAL ) Arrival Mode Ambulatory, Ambulatory, Walker Walker [...] Recorded Date Recorded By Document 10/20/24 11:01 PA [id number] 10/20/24 11:18 MT 10/20/24 11:01 Wound Center Nurse 1 #1 [...] after Cleansing No -Wound Comment(s) intact sutures - Nurse 2 - General Ulcer CM Notes Start: 10/12/24 08:20 Freq: Status: Active Protocol: Activity Type Activity Date Activity User E-sign Co-sign Detail Recorded Client Recorded Date Recorded By Document 10/20/24 11:36 MATTHEW [id number] 10/20/24 11:38 MATTHEW 10/20/24 11:36 Wound Center [...] Date Recorded By Document 10/12/24 08:20 ML [id number] 10/12/24 08:37 ML Document 10/20/24 11:55 DL [id number] 10/20/24 11:57 DL 10/12/24 10/20/24 08:20 11:55 Pain Scale: 0-10 Numeric Is Patient Pain Free? No Yes Wound Care Center Nurse 3 #1 LT MED HEEL -Ulcer Cleansing Soap and Water -Foul Odor after Cleansing No No -Other Dressing betadine, betadine adaptic, undercasting -Primary Dressing Covered/Secured with Dry Gauze, Dry Gauze & Secured with Roll Gauze, Tape Secured with Tape -Other Covering Cain -Wound Comment(s) Betadine and steri strips applied [...] assistance of a walker. She can take wcqj-vvq-ubtulnj Tylenol as needed for pain control. Follow-up at the wound care center with Dr. Wright in 1 week. 10/20/24 1314 <Electronically signed by Thompson Wright DPM> Cosigner Signature (if applicable): CC: ~ Signed [facility] Work Phone: 1(868) 573-452903-12-2025 Progress note [facility] [address] [place] [address] Progress Note - Wound Care 10/20/24 1312 MR#: [id number] Acct: [id number] Name: MILIND BOWMAN Rep #:[id number] : 1955 69 From: Thompson Ferreira PM PCP: Dr. Danny Herrera MD Status:R [facility] Location: History of Present Illness Date [...] Start: 10/12/24 08:20 Freq: Status: Active Protocol: ARSLANEXT Activity Type Activity Date Activity User E-sign Co-sign Detail Recorded Client Recorded Date Recorded By Document 10/12/24 08:20 ML [id number] 10/12/24 08:37 ML Document 10/20/24 11:01 MT [id number] 10/20/24 11:18 MT 10/12/24 10/20/24 08:20 11:01 - Today's Visit Information Type of service Nurse-only Follow-up Visit Visit (Physician/TELESALES PROFESSIONAL ) Arrival Mode Ambulatory, Ambulatory, Walker Walker [...] Recorded Date Recorded By Document 10/20/24 11:01 PA [id number] 10/20/24 11:18 PA 10/20/24 11:01 Wound Center Nurse 1 #1 [...] Date Recorded By Document 10/20/24 11:36 JF [id number] 10/20/24 11:38 JF 10/20/24 11:36 Wound Center Nurse 2 -Time [...] Date Recorded By Document 10/12/24 08:20 ML [id number] 10/12/24 08:37 ML Document 10/20/24 11:55 DL [id number] 10/20/24 11:57 DL 10/12/24 10/20/24 08:20 11:55 Pain Scale: 0-10 Numeric Is Patient Pain Free? No Yes [facility] Nurse 3 #1 LT MED HEEL -Ulcer Cleansing Soap and Water -Foul Odor after Cleansing No No -Other Dressing betadine, betadine adaptic, undercasting -Primary Dressing Covered/Secured with Dry Gauze, Dry Gauze & Secured with Roll Gauze, Tape Secured with Tape -Other Covering Cain -Wound Comment(s) Betadine and steri strips applied [...] was flushed with copious also normal saline. [id number] were used to reeducate the flap closure incision line. Betadine paint was applied to the Steri-Strips followed by Betadine soaked gauzedry sterile dressing light compression wrap. Patient can be weightbearing as tolerated in surgical shoe with preferred toe- touch with assistanceof a walker. She can take [id number] Tylenol as needed for pain control. Follow-up at the wound care center with Dr. Wright in 1 week. 10/20/24 1314 Cosigner Signature (if applicable): CC: ~ Signed [facility]02-07-2025 Evaluation note* Diagnosis Onset Date Resolution Status Admit Date Abnormal EKG acute September 1:57pm Preoperative evaluation to r ule out surgical contraindication acute Fe bruary 2024 1:57pm Hyperlipidemia chronic September 172024 1:57pm Hypertension chronic September 1:57pm Rheumatoid arthritis chronic 2024 1:57pm Type 2 diabetes mellitus chronic [...] exposed chronic December 15, 2024 8: 18am [facility] Work Phone: 1(794) 263-693701-29-2025 Evaluation note* Diagnosis Onset Date Resolution Status [...] exposed chronic December 15, 2024 8: 18am [facility] Work Phone: 1(819) 723-591112-12-2024 Evaluation note* Diagnosis Onset Date Resolution Status [...] layer exposed chronic November 03, 2024 11:00am [facility] Work Phone: 1(263) 600[facility]438310[facility]14[facility] Onset Date Resolution Status Acute pain of both ears acut e Hypertension chronic Tachycardia chronic [facility] Work Phone: Evaluation note* Diagnosis Onset Date Resolution Status Preventative health care acu te Elevated glucose noneactive [facility] Work Phone: Evaluation noteNo assessment information available [facility] Work Phone: Reason for referral (narrative)No reason for referral information availableUniversity [facility] Work Phone: Summary Purpose Family History No Family History Records Found Relationship Condition Age at Onset Recorded Date/T osiris father Myocardial infarction Unknown Advance Directives No Advanced Directives Records Found Advance Directive Response Recorded Date/ Time Advance Directives No June 11:03am Living Will No June 21 11:03am Power of Manager Cardiovascular No June 21, 2020 11:03am Advance Directive Response Recorded Date/ Time Advance Directives No June 10:02am Living Will No July 04 10:02am Power of Manager Cardiovascular No July 04, 2020 10:02am Advance Directive Response Recorded Date/ Time Living Will No July 04 10:02am Do you have a Healthcare Power of Manager Cardiovascular? No July 04, 2020 10:02am Living Will No May 23 8:56am Do you have a Healthcare Power of Manager Cardiovascular? Yes May 23, 2024 8:56am Living Will No September 30 9:27am Do you have a Healthcare Power of Manager Cardiovascular? No September 30, 2024 9:27am Advance Directives No June 10:02am Advance Directive Response Recorded Date/ Time Living Will No July 04, 020 10:02am Do you have a Healthcare Power of Manager Cardiovascular? No July 04, 2020 10:02am Living Will No September 30 9:27am Do you have a Healthcare Power of Manager Cardiovascular? No September 30, 2024 9:27am Advance Directives No June 10:02am Advance Directive Response Recorded Date/ Time Living Will No July 04, 020 10:02am Do you have a Healthcare Power of Manager Cardiovascular? No July 04, 2020 10:02am Advance Directives [...] 2024 1 :57pm Preoperative evaluation to janice douglase out surgical contraindication September 17, 2024 1:57pm [...] B12 inject March 08, 2025 2:23 pm Chief Complaint Admit Date wound December 01, 2024 10: 00am wound December 15, 2024 8:18am 6 M FU January 13, 2025 7:55a m EORDER February 18, 2025 7:18 am 6 wks March 01, 2025 7:54 am EORDERS March 01, 2025 8:41 am B12 inject March 08, 2025 2:23 pm PAIN- COPY PCP March 08, 2025 2:57 pm PAIN- COPY PCP March 25, 2025 7: 26am Reason for Visit Admit Date Foreign body [...] Musculoskeletal pain March 01, 2025 7:5 4am Fatigue March 08, 2025 2:23 pm Chief Complaint Admit Date wound December 15, 2024 8:18am 6 M FU January 13, 2025 7:55a m EORDER February 18, 2025 7:18 am 6 wks March 01, 2025 7:54 am EORDERS March 01, 2025 8:41 am B12 inject March 08, 2025 2:23 pm PAIN- COPY PCP March 08, 2025 2:57 pm PAIN- COPY PCP March 25, 2025 7: 26am Reason for Visit Admit Date 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 December 15, 2024 8:18am Epilepsy January 13, 2025 7:55a m Anemia March 01, 2025 7:54 am Epilepsy March 01, 2025 7:54 am Musculoskeletal pain March 01, 2025 7:5 4am Fatigue March 08, 2025 2:23 pm Chief Complaint Admit Date wound December 15, 2024 8:18am 6 M FU January 13, 2025 7:55a m EORDER February 18, 2025 7:18 am 6 wks March 01, 2025 7:54 am EORDERS March 01, 2025 8:41 am B12 inject March 08, 2025 2:23 pm PAIN- COPY PCP March 08, 2025 2:57 pm PAIN- COPY PCP March 25, 2025 7: 26am B12 April 07, 2025 2: 22pm Additional Source Comments INFORMATION SOURCE (unrecogn ized section and content) DATE CREATED AUTHOR 05/26/2018 [facility] DATE CREATED AUTHOR AUTHOR'S ORGANIZ ATION 05/20/2025 [facility] Goals (unrecognized section and content) Goals may [...] Provider, Refer ring Provider Active Nazario Ha NP, CATEGORY ANALYST-C Attending Provider Active Team Status: Inactive Member Role Status Dates Dr. Danny Herrera MD Primary Care Provider Active Dr. Leeanna Johnson MD Attending Provider, Referring Provider Active Team Status: Inactive Member Role Status Dates Dr. Danny Herrera MD Primary Care Provider Active Nazario Ha NP, CATEGORY ANALYST-C Attending Provider, Referring Prov ider Active Team Status: Inactive Member Role Status Dates Dr. Danny Herrera MD Primary Care P humble, Attending Provider, Referring Provider Active Dr. Leeanna Johnson MD Other Provider Active Team Status: Active Member Role Status Dates Dr. aDnny Herrera MD Primary Care Provider Active Team [...] 23, 2024 End: September 23, 2024 Dr. Paersh Arellano MD Attending Provider Active Start: September [...] March 08, 2025 End: March 08, 2025 Team Status: Active Member Role/Relationship Status Dates Dr. Danny Herrera MD Primary Care Provider Active Start: March 08, 2025 Dr. Leeanna Johnson MD Attending Provider Active Start: March 08, 2025 Dr. Leeanna Johnson MD Referring Provider Active Start: March 08, 2025 Team Status: Inactive Member Role/Relationship Status Dates Dr. Danny Herrera MD Primary Care Provider Active Start: March 11, 2025 End: March 11, 2025 Dr. Leeanna Johnson MD Attending Provider Active Start: March 11, 2025 End: March 11, 2025 Dr. Leeanna Johnson MD Referring Provider Active Start: March 11, 2025 End: March 11, 2025 Team Status: Active Member Role/Relationship Status Dates Dr. Danny Herrera MD Primary Care Provider Active Start: March 25, 2025 Dr. Leeanna Johnson MD Attending Provider Active Start: March 25, 2025 Dr. Leeanna Johnson MD Referring Provider Active Start: March 25, 2025 Team Status: Inactive Member Role/Relationship Status Dates Dr. Danny Herrera MD Primary Care Provider Active Start: March 25, 2025 End: March 25, 2025 Dr. Leeanna Johnson MD Attending Provider Active Start: March 25, 2025 End: March 25, 2025 Dr. Leeanna Johnson MD Referring Provider Active Start: March 25, 2025 End: March 25, 2025 Team Status: Inactive Member Role/Relationship Status [...] March 08, 2025 End: March 08, 2025 Team Status: Inactive Member Role/Relationship Status Dates Dr. Danny Herrera MD Primary Care Provider Active Start: March 08, 2025 End: March 08, 2025 Dr. Leeanna Johnson MD Attending Provider Active Start: March 08, 2025 End: March 08, 2025 Dr. Leeanna Johnson MD Referring Provider Active Start: March 08, 2025 End: March 08, 2025 Team Status: Inactive Member Role/Relationship Status Dates Dr. Danny Herrera MD Primary Care Provider Active Start: March 11, 2025 End: March 11, 2025 Dr. Leeanna Johnson MD Attending Provider Active Start: March 11, 2025 End: March 11, 2025 Dr. Leeanna Johnson MD Referring Provider Active Start: March 11, 2025 End: March 11, 2025 Team Status: Inactive Member Role/Relationship Status Dates Dr. Danny Herrera MD Primary Care Provider Active Start: March 25, 2025 End: March 25, 2025 Dr. Leeanna Johnson MD Attending Provider Active Start: March 25, 2025 End: March 25, 2025 Dr. Leeanna Johnson MD Referring Provider Active Start: March 25, 2025 End: March 25, 2025 Team Status: Inactive Member Role/Relationship Status Dates Dr. Danny Herrera MD Primary Care Provider Active Start: April 07, 2025 End: April 07, 2025 Dr. Danny Herrera MD Referring Provider Active Start: April 07, 2025 End: April 07, 2025 Dr. Paresh Arellano MD Attending Provider Active Start: April 07, 2025 End: April 07, 2025 FOR RECORDS PERTAINING TO PATIENTS WHO [...] BE BASED ON THE PRIMARY CLINICAL RECORDS. [facility] [employer] provides no warranty or guarantee of the accuracy or completeness of information in this document.
[2025-06-21 15:11] LABS: Hematocrit 39.2 % (37-47); Hemoglobin 12.4 g/dL (12.0-15.0); Immature Granulocytes Count 0.020 X10^3/uL (0.0-0.0); Mean Corp Hgb Conc 31.6 g/dL (32-36); Mean Corpuscular Volume 87.3 fL (81-99); Mean Platelet Vol. 10.3 fl (6.2-12.0); NRBC Flagged by Analyzer 0 % (0-5); Platelet Count 336 K/mm3 (150-450); RBC Distribution Width CV 17.5 % (11.6-14.6); RBC Distribution Width SD 56.1 fl (35.1-43.9); Red Blood Count 4.49 M/mm3 (4.2-5.4); White Blood Count 8.3 K/mm3 (4.4-11.0)
[2025-06-21 15:40] LABS: AST(SGOT) 17 U/L (<=31); Alanine Aminotransfer ALT/SGPT 13 U/L (<=34); Albumin, Serum 4.3 g/dL (3.4-4.8); Alkaline Phosphatase 83 U/L (35-104); Anion Gap 11 (5-15); BUN 30 mg/dL (4-19); BUN/Creat Ratio 37.6 RATIO (10-20); CRP < 3.00 mg/L (0.0-3.0); Calcium,Total 9.9 mg/dL (7.6-11.0); Carbon Dioxide 19.6 mmol/L (21.0-32.0); Chloride 110 mmol/L (98-108); Globulin 3.2 g/dL (2.2-4.2); Glucose 130 mg/dL (70-99); Potassium 4.1 mmol/L (3.3-5.1)
== END | disposition home or self-care (01) ==
PROVIDERS: PCP Internal Medicine; Referring Provider Internal Medicine Rheumatology; Visit Provider Internal Medicine Rheumatology
DX: L40.59 Other psoriatic arthropathy (principal); L40.8 Other psoriasis; M16.0 Bilateral primary osteoarthritis of hip; M47.892 Other spondylosis, cervical region; Z79.899 Other long term (current) drug therapy
CPT/HCPCS: 36415; 80053; 85025; 85652; 86140